=== PATIENT | female | born 1935 | race Caucasian/White ===

== ENCOUNTER 2017-11-05 11:17 | Outpatient (CLI) | payer MEDICARE, OTHER, SELFPAY | END 2017-11-05 15:51 | PROVIDERS: Family Provider Family Medicine; Visit Provider Internal Medicine Cardiovascular Disease | DX: Z79.01 Long term (current) use of anticoagulants (principal); I48.91 Unspecified atrial fibrillation; Z51.81 Encounter for therapeutic drug level monitoring | CPT/HCPCS: 85610; 99211; G0463 ==

== ENCOUNTER 2017-11-26 11:09 | Outpatient (CLI) | payer MEDICARE, OTHER, SELFPAY | END 2017-11-26 17:00 | disposition home or self-care (01) | LOC: ACC 11:12 | PROVIDERS: Physician Assistant; Family Provider Family Medicine; PCP Family Medicine; Visit Provider Internal Medicine Cardiovascular Disease | DX: Z79.01 Long term (current) use of anticoagulants (principal); I48.91 Unspecified atrial fibrillation; Z51.81 Encounter for therapeutic drug level monitoring | CPT/HCPCS: 85610; 99211; G0463 ==

== ENCOUNTER → 2017-12-17 11:49 | Outpatient (CLI) | payer MEDICARE, OTHER, SELFPAY ==
[2017-12-17 12:40] LABS: INR 1.52 (0.9-1.1); Prothrombin Time 16.5 seconds (9.4-11.8)
== END ==
PROVIDERS: Physician Assistant; Family Provider Family Medicine; PCP Family Medicine; Visit Provider Internal Medicine Cardiovascular Disease
DX: Z79.01 Long term (current) use of anticoagulants (principal); Z51.81 Encounter for therapeutic drug level monitoring; I48.0 Paroxysmal atrial fibrillation; I49.5 Sick sinus syndrome
CPT/HCPCS: 36415; 80162; 85610

== ENCOUNTER 2017-12-31 12:15 | Outpatient (CLI) | payer MEDICARE, OTHER, SELFPAY ==
[2017-12-31 14:58] LABS: PHA INR Fingerstick 2.3 (0.9-1.1)
== END 2017-12-31 15:25 | disposition home or self-care (01) ==
LOC: ACC 12:17
PROVIDERS: PCP Optometrist; Visit Provider Physician Assistant
DX: I48.91 Unspecified atrial fibrillation (principal)
CPT/HCPCS: 85610

== ENCOUNTER 2018-01-20 12:21 | Outpatient (CLI) | payer MEDICARE, OTHER, SELFPAY | END 2018-01-20 15:13 | disposition home or self-care (01) | LOC: ACC 12:22 | PROVIDERS: Family Provider Family Medicine; PCP Optometrist; Visit Provider Physician Assistant | DX: Z51.81 Encounter for therapeutic drug level monitoring (principal); I48.91 Unspecified atrial fibrillation; Z79.01 Long term (current) use of anticoagulants | CPT/HCPCS: 85610; 99211; G0463 ==

== ENCOUNTER → 2018-02-18 12:43 | Outpatient (CLI) | payer MEDICARE, OTHER, SELFPAY ==
[2018-02-18 15:42] LABS: PHA INR Fingerstick 1.8 (0.9-1.1)
== END | disposition home or self-care (01) ==
PROVIDERS: Family Provider Family Medicine; PCP Family Medicine; Visit Provider Physician Assistant
DX: Z79.01 Long term (current) use of anticoagulants (principal); Z51.81 Encounter for therapeutic drug level monitoring; I48.91 Unspecified atrial fibrillation
CPT/HCPCS: 85610; 99211; G0463

== ENCOUNTER 2018-03-19 12:51 | Outpatient (CLI) | payer MEDICARE, OTHER, SELFPAY ==
[2018-03-19 15:46] LABS: PHA INR Fingerstick 2.4 (0.9-1.1)
== END 2018-03-19 15:50 | disposition home or self-care (01) ==
LOC: ACC 12:52
PROVIDERS: Family Provider Family Medicine; PCP Family Medicine; Visit Provider Physician Assistant
DX: Z79.01 Long term (current) use of anticoagulants (principal); Z51.81 Encounter for therapeutic drug level monitoring; I48.91 Unspecified atrial fibrillation
CPT/HCPCS: 85610; 99211; G0463

== ENCOUNTER → 2018-04-30 11:35 | Outpatient (CLI) | payer MEDICARE, OTHER, SELFPAY ==
[2018-04-30 12:09] LABS: INR 1.73 (0.9-1.1); Prothrombin Time 17.5 seconds (9.4-11.8)
[2018-04-30 13:36] LABS: Digoxin 1.89 ng/mL (1.15-2.56)
== END ==
PROVIDERS: Internal Medicine Cardiovascular Disease; Visit Provider Physician Assistant
DX: Z79.01 Long term (current) use of anticoagulants (principal); Z51.81 Encounter for therapeutic drug level monitoring; I48.92 Unspecified atrial flutter
CPT/HCPCS: 36415; 80162; 85610

== ENCOUNTER 2018-05-19 12:32 | Outpatient (CLI) | payer MEDICARE, OTHER, SELFPAY ==
--- NOTE | 2018-05-19 12:38 | XR_ITS ---
XR ankle wt bearing RT min 3V HISTORY: ITS.REASON: pain ORDERING PHYSICIAN: FROYLAN Liu PATIENT AGE: 82 years Comparison: None FINDINGS: No fracture or dislocation. No lytic or blastic change. There is normal mineralization.. The joint spaces are well-preserved. No significant degenerative/arthritic changes. No erosive changes evident. Soft tissue swelling is present at the lateral aspect of the ankle joint. A small soft tissue calcification is present distal to the lateral malleolus possibly due to a phlebolith containing some lucency. IMPRESSION: Soft tissue swelling laterally otherwise negative
--- NOTE | 2018-05-19 12:38 | XR_ITS ---
XR ankle wt bearing LT min 3V HISTORY: ITS.REASON: pain ORDERING PHYSICIAN: FROYLAN Liu PATIENT AGE: 82 years Comparison: None FINDINGS: No fracture or dislocation. No lytic or blastic change. There is normal mineralization.. The joint spaces are well-preserved. No significant degenerative/arthritic changes. No erosive changes evident. IMPRESSION: Negative ankle, no acute finding
--- NOTE | 2018-05-19 12:38 | XR_ITS ---
XR foot wt bearing RT 3V HISTORY: ITS.REASON: pain ORDERING PHYSICIAN: FROYLAN Liu PATIENT AGE: 82 years COMPARISON: None FINDINGS: There is [id number] hallux valgus with first metatarsophalangeal angle of 39 degrees with mild osteoarthritis of the first MTP joint and mild hypertrophic change at the distal aspect of the first metatarsal. No fracture or dislocation evident. No lytic or blastic change. There is some deformity of the distal aspect of the first metatarsal. Has the patient had a prior osteotomy? Small area of soft tissue calcification present at the lateral aspect of the foot at the lateral to the calcaneal cuboid region IMPRESSION: Hallux valgus with bunion formation and osteoarthritis of the first MTP joint with suspected osteotomy of the distal aspect of the first metatarsal
--- NOTE | 2018-05-19 12:38 | XR_ITS ---
XR foot wt bearing LT 3V HISTORY: ITS.REASON: pain ORDERING PHYSICIAN: FROYLAN Liu PATIENT AGE: 82 years COMPARISON: None FINDINGS: There is mild hallux the first metatarsophalangeal angle of 33 degrees with mild hypertrophic changes of the distal aspect of the first metatarsal. No fracture or dislocation. No lytic or blastic change. Small calcaneal spur is present at 7 mm. IMPRESSION: Mild hallux valgus with bunion formation
[2018-05-19 14:46] LABS: PHA INR Fingerstick 2.2 (0.9-1.1)
== END 2018-05-19 14:47 | disposition home or self-care (01) ==
LOC: ACC 12:35
PROVIDERS: PCP Family Medicine; Visit Provider Physician Assistant
DX: Z79.01 Long term (current) use of anticoagulants (principal)
CPT/HCPCS: 73610; 73630; 85610; 99211; G0463

== ENCOUNTER → 2018-05-19 16:15 | Outpatient (REF) | payer MEDICARE, OTHER, SELFPAY | LOC: LAB 16:15 | PROVIDERS: Visit Provider Urology | DX: I48.91 Unspecified atrial fibrillation; N39.0 Urinary tract infection, site not specified | CPT/HCPCS: 73610; 73630; 85610; 87086; 99211; G0463 ==

== ENCOUNTER 2018-05-25 13:13 | Outpatient (RCR) | payer MEDICARE, OTHER, SELFPAY ==
--- NOTE | 2018-05-25 14:28 | HMH.PTOPWND ---
Rehab Outpt Wound Evaluation Rehab OP Wound Evaluation Start: 05/25/18 13:14 Freq: Status: Active Protocol: Document 05/25/18 14:17 PHOFAWN (Rec: 05/25/18 14:27 PHORNE [id number]) Electronically Signed By Jr Canchola, PT 05/25/18 14:17 Subjective/History History History Pt is 82 yo white female who presents with c/o pain in verenice feet and ankles with associated edmea and insidious onset of symptoms. She reports no known injuries and had X-rays performed which were negative for any acute injury.SHe has hx of OA, DDD, Fibromyalgia, CVI, COPD, Pacemaker x 2, and right bunionectomy. Subjective Subjective Pt c/o pain in verenice feet, burning, and it gets worse through the day when I'm up. *moderate verenice gastroc tightness noted. 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 Stemmer's sign Stemmer's Sign no Stage of Lymphedema Lymphedema stages Stage I (Pitting edema, reduces w/ elevation, no fibrosis) Skin Changes Dry Skin Yes Redness Yes Pain Scale Pain Scale (0-10) 8 Affected Extremities Areas Affected by Lymphedema/Edema Right Lower Extremity Left Lower Extremity Manual Lymphatic Drainage Treatment Area MLD Treatment Area Right Lower Extremity Left Lower Extremity Wound Problems/Impairments Impairments Problems/Impairmments Palpation Tenderness Impaired Range of Motion Impaired Walking Increased Edema Lymphedema Present Subjective C/O Pain Impaired Self Care/Self Management Prognosis Rehab Potential Fair Clinical Impression Consistent with Diagnosis Yes Short Term Goals Number of Weeks 4 Decreased Palpation Tenderness Yes: to min Increase Ability to Walk Yes: 5 min Decrease Subjective C/O Pain Yes: 6/10 Patient to Understand Lymphedema Yes Treatment and Exercises Decrease Girth Measurments by (cm) Yes: by 5 cm 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
== END 2018-05-25 13:14 | disposition home or self-care (01) ==
LOC: PT 13:13
PROVIDERS: Family Provider Family Medicine; PCP Family Medicine; Visit Provider Podiatrist
DX: I89.0 Lymphedema, not elsewhere classified (principal)
CPT/HCPCS: 97140; 97163

== ENCOUNTER → 2018-06-15 08:53 | Outpatient (CLI) | payer MEDICARE, OTHER, SELFPAY ==
--- NOTE | 2018-06-15 08:57 | US_ITS ---
US abdomen limited History:Right upper quadrant pain, abnormal CT scan Ordering Physician:Niranjan Chavira MD Patient Age: 82 years Comparison:06/05/2018 Findings:Patient has had a prior cholecystectomy. There is a cystic region in the gallbladder fossa with an underlying stone Pancreas:Unremarkable. No obvious mass or abnormal fluid collection. No ductal dilatation Liver:No focal liver lesions demonstrated. Homogeneous echogenicity. No intrahepatic biliary ductal dilatation evident. The common bile duct is normal at 3 mm. Right Kidney:Unremarkable. Normal size and echogenicity. No hydronephrosis Gallbladder:History is given of cholecystectomy. There is a cystic rounded area in the gallbladder fossa corresponding to the CT abnormality which measures nearly 3 cm. Within this there is a shadowing stone which measures 1.8 cm. Impression: Prior cholecystectomy with cystic area in the gallbladder fossa containing a stone. This may be related to a dilated cystic duct remnant with a stone versus a choledochocele with a stone. Unfortunately, the patient has an RV pacemaker and would not be candidate for MRCP. ERCP therefore be the next step for further evaluation with attempt to reflux contrast into this cystic structure and confirm its origin
== END ==
PROVIDERS: Family Provider Family Medicine; PCP Family Medicine; Visit Provider Family Medicine
DX: R10.11 Right upper quadrant pain (principal)
CPT/HCPCS: 76705

== ENCOUNTER → 2018-06-22 09:16 | Outpatient (CLI) | payer MEDICARE, OTHER, SELFPAY ==
--- NOTE | 2018-06-22 09:31 | US_ITS ---
US extremity RT limited CLINICAL INDICATION: ITS.REASON: BACK RT SIDED MASS ORDERING PHYSICIAN: Niranjan Chavira MD PATIENT AGE: 82 years Comparison: 06/13/2019 FINDINGS: Ultrasound performed of the right lateral chest wall demonstrating a 2 x 1.4 x 1.6 cm hypoechoic lesion in the right 10th interspace posterior laterally corresponding to the CT abnormality. This has enhanced through transmission of sound may represent a cyst or a neuroma. IMPRESSION: 2 cm hypoechoic lesion corresponding to the CT abnormality in the right 10th interspace which may present a cyst or neuroma
--- NOTE | 2018-06-22 09:31 | US_ITS ---
FNA w guidance HISTORY: Right-sided intercostal mass as seen on recent CT scan with pain ITS.REASON: RT SIDED BACK MASS' ORDERING PHYSICIAN: Niranjan Chavira MD PATIENT AGE: 82 years COMPARISON: 06/22/2018, 06/13/2019 TECHNIQUE: Following obtaining informed consent, using aseptic technique and local anesthesia with buffered lidocaine, fine-needle aspiration was performed of the nodule of interest using sonographic guidance. One pass were made into the nodule with a 25-gauge needle. A small amount of serous fluid was aspirated and the nodule disappeared. Specimen was given to cytology. The patient tolerated the procedure well without evidence of immediate complications and left the ultrasound suite in stable condition. CYTOLOGY:Negative for malignancy, granular an amorphous debris compatible with cyst contents. Negative for epithelial and inflammatory cells IMPRESSION: Successful sonographic guided aspiration of intercostal lesion on the right at the 10th interspace in the right flank showing benign findings. This completely aspirated consistent with a cyst. No immediate complications
== END ==
PROVIDERS: Family Provider Family Medicine; PCP Family Medicine; Visit Provider Family Medicine
DX: R22.2 Localized swelling, mass and lump, trunk (principal)
CPT/HCPCS: 10022; 76882; 88173

== ENCOUNTER 2018-07-07 13:55 | Outpatient (CLI) | payer MEDICARE, OTHER, SELFPAY ==
[2018-07-07 14:41] LABS: PHA INR Fingerstick 2.2 (0.9-1.1)
== END 2018-07-07 14:44 | disposition home or self-care (01) ==
LOC: ACC 13:57
PROVIDERS: Family Provider Family Medicine; PCP Family Medicine; Visit Provider Physician Assistant
DX: Z79.01 Long term (current) use of anticoagulants (principal); Z51.81 Encounter for therapeutic drug level monitoring; I48.91 Unspecified atrial fibrillation
CPT/HCPCS: 85610; 99211; G0463

== ENCOUNTER 2018-09-01 10:56 | Outpatient (CLI) | payer MEDICARE, OTHER, SELFPAY ==
[2018-09-01 14:05] LABS: PHA INR Fingerstick 2.8 (0.9-1.1)
== END 2018-09-01 14:24 | disposition home or self-care (01) ==
LOC: ACC 10:58
PROVIDERS: PCP Family Medicine; Visit Provider Physician Assistant
DX: Z51.81 Encounter for therapeutic drug level monitoring (principal); Z79.01 Long term (current) use of anticoagulants; I48.91 Unspecified atrial fibrillation
CPT/HCPCS: 85610; 99211; G0463

== ENCOUNTER 2018-09-22 12:31 | Outpatient (CLI) | payer MEDICARE, OTHER, SELFPAY ==
[2018-09-22 15:31] LABS: PHA INR Fingerstick 2.9 (0.9-1.1)
== END 2018-09-22 15:36 | disposition home or self-care (01) ==
LOC: ACC 12:33
PROVIDERS: PCP Family Medicine; Visit Provider Physician Assistant
DX: Z51.81 Encounter for therapeutic drug level monitoring (principal); Z79.01 Long term (current) use of anticoagulants; I48.91 Unspecified atrial fibrillation
CPT/HCPCS: 85610; 99211; G0463

== ENCOUNTER 2018-10-28 12:49 | Outpatient (CLI) | payer MEDICARE, OTHER, SELFPAY ==
[2018-10-28 14:40] LABS: PHA INR Fingerstick 1.8 (0.9-1.1)
== END 2018-10-28 14:48 | disposition home or self-care (01) ==
PROVIDERS: Visit Provider Physician Assistant
DX: I48.91 Unspecified atrial fibrillation (principal); Z79.01 Long term (current) use of anticoagulants
CPT/HCPCS: 85610; 99211; G0463

== ENCOUNTER → 2018-11-12 11:45 | Outpatient (CLI) | payer MEDICARE, OTHER, SELFPAY ==
[2018-11-12 12:49] LABS: Digoxin 2.07 ng/mL (1.15-2.56)
== END ==
PROVIDERS: Visit Provider Physician Assistant
DX: Z79.899 Other long term (current) drug therapy (principal)
CPT/HCPCS: 36415; 80162

== ENCOUNTER 2018-11-30 12:50 | Outpatient (CLI) | payer MEDICARE, OTHER, SELFPAY ==
[2018-11-30 13:55] LABS: PHA INR Fingerstick 3.1 (0.9-1.1)
== END 2018-11-30 13:59 | disposition home or self-care (01) ==
LOC: ACC 12:50
PROVIDERS: PCP Family Medicine; Visit Provider Physician Assistant
DX: Z51.81 Encounter for therapeutic drug level monitoring (principal); Z79.01 Long term (current) use of anticoagulants; I48.91 Unspecified atrial fibrillation
CPT/HCPCS: 85610; 99211; G0463

== ENCOUNTER 2019-01-04 12:14 | Outpatient (CLI) | payer MEDICARE, OTHER, SELFPAY ==
[2019-01-04 15:02] LABS: PHA INR Fingerstick 2.6 (0.9-1.1)
== END 2019-01-04 15:05 | disposition home or self-care (01) ==
LOC: ACC 12:16
PROVIDERS: PCP Family Medicine; Visit Provider Physician Assistant
DX: Z51.81 Encounter for therapeutic drug level monitoring (principal); Z79.01 Long term (current) use of anticoagulants; I48.91 Unspecified atrial fibrillation
CPT/HCPCS: 85610; 99211; G0463

== ENCOUNTER 2019-02-15 13:01 | Outpatient (CLI) | payer MEDICARE, OTHER, SELFPAY | END 2019-02-15 15:06 | disposition home or self-care (01) | LOC: ACC 13:03 | PROVIDERS: PCP Family Medicine; Visit Provider Physician Assistant | DX: Z51.81 Encounter for therapeutic drug level monitoring (principal); Z79.01 Long term (current) use of anticoagulants; I48.91 Unspecified atrial fibrillation | CPT/HCPCS: 85610; 99211; G0463 ==

== ENCOUNTER → 2019-02-23 14:27 | Outpatient (CLI) | payer MEDICARE, OTHER, SELFPAY ==
--- NOTE | 2019-02-23 14:31 | XR_ITS ---
XR foot wt bearing RT 3V HISTORY: ITS.REASON: pain ORDERING PHYSICIAN: Yesenia Suazo DPM PATIENT AGE: 83 years COMPARISON: None FINDINGS: [id number] hallux valgus is present with mild osteoarthritic change of the first metatarsophalangeal joint. No fracture or dislocation. No lytic or blastic change. Artifact is present from a wrap around the foot. IMPRESSION: Hallux valgus otherwise negative
--- NOTE | 2019-02-23 14:31 | XR_ITS ---
XR ankle wt bearing LT min 3V HISTORY: ITS.REASON: pain ORDERING PHYSICIAN: Yesenia Suazo DPM PATIENT AGE: 83 years Comparison: None FINDINGS: No fracture or dislocation. No lytic or blastic change. There is normal mineralization.. The joint spaces are well-preserved. No significant degenerative/arthritic changes. No erosive changes evident. IMPRESSION: Negative ankle, no acute finding
--- NOTE | 2019-02-23 14:31 | XR_ITS ---
XR ankle wt bearing RT min 3V HISTORY: ITS.REASON: pain ORDERING PHYSICIAN: Yesenia Suazo DPM PATIENT AGE: 83 years Comparison: None FINDINGS: No fracture or dislocation. No lytic or blastic change. There is normal mineralization.. The joint spaces are well-preserved. No significant degenerative/arthritic changes. No erosive changes evident. IMPRESSION: Negative ankle, no acute finding
--- NOTE | 2019-02-23 14:31 | XR_ITS ---
XR foot wt bearing LT 3V HISTORY: ITS.REASON: pain ORDERING PHYSICIAN: Yesenia Suazo DPM PATIENT AGE: 83 years COMPARISON: None FINDINGS: There is mild hallux valgus. No fracture or dislocation. No lytic or blastic change. No bony erosive process. Artifact is present from a compartment/wrap around the foot. IMPRESSION: Hallux valgus otherwise negative
== END ==
PROVIDERS: PCP Family Medicine; Visit Provider Podiatrist
DX: R52 Pain, unspecified (principal)
CPT/HCPCS: 73610; 73630

== ENCOUNTER 2019-03-15 13:02 | Outpatient (CLI) | payer MEDICARE, OTHER, SELFPAY ==
[2019-03-15 13:45] LABS: PHA INR Fingerstick 2.9 (0.9-1.1)
== END 2019-03-15 13:51 | disposition home or self-care (01) ==
LOC: ACC 13:03
PROVIDERS: PCP Family Medicine; Visit Provider Physician Assistant
DX: Z51.81 Encounter for therapeutic drug level monitoring (principal); Z79.01 Long term (current) use of anticoagulants; I48.91 Unspecified atrial fibrillation
CPT/HCPCS: 85610; 99211; G0463

== ENCOUNTER → 2019-04-06 13:08 | Outpatient (POV) | payer MEDICARE, OTHER, SELFPAY | PROVIDERS: Visit Provider Dermatology | DX: Z00.00 Encounter for general adult medical examination without abnormal findings (principal) ==

== ENCOUNTER 2019-04-26 12:41 | Outpatient (CLI) | payer MEDICARE, OTHER, SELFPAY ==
[2019-04-26 15:48] LABS: PHA INR Fingerstick 2.3 (0.9-1.1)
== END 2019-04-26 15:52 | disposition home or self-care (01) ==
LOC: ACC 12:42
PROVIDERS: PCP Family Medicine; Visit Provider Physician Assistant
DX: Z51.81 Encounter for therapeutic drug level monitoring (principal); Z79.01 Long term (current) use of anticoagulants; I48.91 Unspecified atrial fibrillation
CPT/HCPCS: 85610; 99211; G0463

== ENCOUNTER → 2019-05-27 12:09 | Outpatient (CLI) | payer MEDICARE, OTHER, SELFPAY ==
[2019-05-27 12:42] LABS: INR 2.18 (0.9-1.1); Prothrombin Time 21.9 seconds (9.4-11.8)
== END ==
PROVIDERS: Visit Provider Family Medicine
DX: Z51.81 Encounter for therapeutic drug level monitoring (principal); Z79.01 Long term (current) use of anticoagulants; I48.91 Unspecified atrial fibrillation
CPT/HCPCS: 36415; 85610

== ENCOUNTER 2019-07-08 11:49 | Outpatient (CLI) | payer MEDICARE, OTHER, SELFPAY ==
[2019-07-08 14:12] LABS: PHA INR Fingerstick 1.9 (0.9-1.1)
== END 2019-07-08 14:17 | disposition home or self-care (01) ==
LOC: ACC 11:52
PROVIDERS: PCP Family Medicine; Visit Provider Family Medicine
DX: Z51.81 Encounter for therapeutic drug level monitoring (principal); Z79.01 Long term (current) use of anticoagulants; I48.91 Unspecified atrial fibrillation
CPT/HCPCS: 85610; 99211; G0463

== ENCOUNTER 2019-07-28 11:53 | Outpatient (CLI) | payer MEDICARE, OTHER, SELFPAY ==
[2019-07-28 14:11] LABS: PHA INR Fingerstick 2.4 (0.9-1.1)
== END 2019-07-28 14:13 | disposition home or self-care (01) ==
LOC: ACC 11:54
PROVIDERS: PCP Family Medicine; Visit Provider Family Medicine
DX: Z51.81 Encounter for therapeutic drug level monitoring (principal); Z79.01 Long term (current) use of anticoagulants; I48.91 Unspecified atrial fibrillation
CPT/HCPCS: 85610; 99211; G0463

== ENCOUNTER 2019-09-15 11:02 | Outpatient (CLI) | payer MEDICARE, OTHER, SELFPAY ==
[2019-09-15 13:26] LABS: PHA INR Fingerstick 2.5 (0.9-1.1)
== END 2019-09-15 13:35 | disposition home or self-care (01) ==
LOC: ACC 11:04
PROVIDERS: PCP Family Medicine; Visit Provider Family Medicine
DX: Z51.81 Encounter for therapeutic drug level monitoring (principal); Z79.01 Long term (current) use of anticoagulants; I48.91 Unspecified atrial fibrillation
CPT/HCPCS: 85610; 99211; G0463

== ENCOUNTER 2019-11-15 13:05 | Outpatient (CLI) | payer MEDICARE, OTHER, SELFPAY ==
[2019-11-15 14:43] LABS: PHA INR Fingerstick 2.1 (0.9-1.1)
== END 2019-11-15 15:34 | disposition home or self-care (01) ==
LOC: ACC 13:05
PROVIDERS: PCP Family Medicine; Visit Provider Family Medicine
DX: Z51.81 Encounter for therapeutic drug level monitoring (principal); Z79.01 Long term (current) use of anticoagulants; I48.91 Unspecified atrial fibrillation
CPT/HCPCS: 85610; 99211; G0463

== ENCOUNTER 2019-12-29 13:09 | Outpatient (CLI) | payer MEDICARE, OTHER, SELFPAY ==
[2019-12-29 15:11] LABS: PHA INR Fingerstick 2.9 (0.9-1.1)
== END 2019-12-29 15:17 | disposition home or self-care (01) ==
LOC: ACC 13:12
PROVIDERS: PCP Family Medicine; Visit Provider Family Medicine
DX: Z51.81 Encounter for therapeutic drug level monitoring (principal); Z79.01 Long term (current) use of anticoagulants; I48.91 Unspecified atrial fibrillation
CPT/HCPCS: 85610; 99211; G0463

== ENCOUNTER 2020-02-08 10:47 | Outpatient (CLI) | payer MEDICARE, OTHER, SELFPAY ==
[2020-02-08 15:35] LABS: PHA INR Fingerstick 2.3 (0.9-1.1)
== END 2020-02-08 15:43 | disposition home or self-care (01) ==
LOC: ACC 10:48
PROVIDERS: PCP Family Medicine; Visit Provider Family Medicine
DX: Z51.81 Encounter for therapeutic drug level monitoring (principal); Z79.01 Long term (current) use of anticoagulants; I48.91 Unspecified atrial fibrillation
CPT/HCPCS: 85610; 99211; G0463

== ENCOUNTER 2020-03-10 01:42 | Emergency (ER) | payer MEDICARE, OTHER, SELFPAY ==
[2020-03-10] VITALS (8 sets, daily range): BP systolic 118–148; BP diastolic 69–85; PULSE 68–87; RESP 16–22; TEMP 36.6–36.7; O2SAT 96–99; BMI 26.7
--- NOTE | 2020-03-10 01:24 | ECG_ITS ---
APPROVED REPORT Exam: Resting ECG HR:64 bpm ECG Measurements Heart Rate 64 AXES RI 256 P -29 QRSd 158 QRS -69 QT 426 T 102 QTc 439 <Conclusion> AV sequential or dual chamber electronic pacemaker Electronically signed by : Niranjan Mccarty, 03/12/2020 13:14:33
--- NOTE | 2020-03-10 01:34 | XR_ITS ---
PROCEDURE: XR CHEST PORTABLE CLINICAL HISTORY: soa shortness of air COMPARISON: CXR1VP XR chest portable from 07/11/2018 CXR2V XR chest 2V from 12/21/2018 XR CHEST PORTABLE from 10/09/2019 FINDINGS: Borderline cardiomegaly without failure with bipolar pacemaker present from left subclavian approach. Patchy infiltrate is present in the right upper lobe laterally. There is also increased density in both lung bases left more so than right. No obvious effusion. The density in the left lung base has a somewhat nodular contour. Cannot exclude pulmonary nodule at this area. Chest CT may provide further evaluation. No acute bony abnormalities. IMPRESSION: Bilateral pneumonia located in the right upper lobe, right lung base, and left lung base with possible nodule in the left lower lobe.. Dictated by: Ramírez Lee MD 03/10/2020 06:17 Electronically signed by Ramírez Lee MD in [place] 03/10/2020 06:17
--- NOTE | 2020-03-10 01:34 | CT_ITS ---
PROCEDURE: CT HEAD/BRAIN WO CON CLINICAL INDICATION: dizziness COMPARISON: No exams were available for comparison TECHNIQUE: Axial images obtained. All CT scans at the facility use one or more dose reduction, viz: automated exposure control, ma/kV adjustment per patient size (including targeted exams where dose is matched to indication, i.e. head), or iterative reconstruction technique. FINDINGS: No midline shift, mass effect, intracranial hemorrhage, hydrocephalus, or extra-axial fluid collection is evident. There is generalized atrophy with hypoattenuation of the periventricular white matter consistent with microangiopathic changes. The calvarium has an unremarkable appearance. No mastoid effusion. No sinus air-fluid level. IMPRESSION: No acute intracranial finding Dictated by: Ramírez Lee MD 03/10/2020 06:29 Electronically signed by Ramírez Lee MD in [facility] 03/10/2020 06:29
[2020-03-10 01:52] LABS: Basophils # 0.1 K/mm3 (0-0.2); Basophils % 0.9 % (0.1-2.0); Eosinophils # 0.2 K/mm3 (0.0-0.4); Eosinophils % 2.4 % (0.1-12.0); Hematocrit 38.3 % (37.0-47.0); Hemoglobin 12.4 g/dL (12.2-16.2); Lymphocytes # 1.6 K/mm3 (0.7-4.5); Lymphocytes % 18.9 % (10-50); Mean Corpuscular HGB Conc 32.4 g/dL (31.8-35.4); Mean Corpuscular Hemoglobin 30.1 pg (27.0-31.2); Mean Corpuscular Volume 92.9 fl (81-99); Mean Platelet Volume 7.4 fl (7.4-10.4); Monocytes # 0.5 K/mm3 (0.1-1.0); Monocytes % 6.3 % (1.7-9.3); Neutrophils # 6.2 K/mm3 (1.8-7.8); Neutrophils % 71.6 % (37.0-80.0); Platelet Count 287 K/mm3 (142-424); Red Blood Count 4.12 M/mm3 (4.20-5.40); White Blood Count 8.7 K/mm3 (4.8-10.8)
[2020-03-10 01:58] LABS: Alanine Aminotransferase 15 U/L (12-78); Albumin Level 4.7 g/dl (3.5-5.0); Albumin/Globulin Ratio 1.3 (1.1-1.8); Alkaline Phosphatase 99 U/L (38-126); Anion Gap 9.9 mEq/L (5-15); Aspartate Amino Transferase 29 U/L (14-36); Bilirubin,Total 0.3 mg/dl (0.2-1.3); Blood Urea Nitrogen 12 mg/dl (7-17); Calcium 10.1 mg/dl (8.4-10.2); Carbon Dioxide 33 mmol/L (22.0-30.0); Chloride 96 mmol/L (98-107); Creatinine Clearance Estimated 47 mL/min (50-200); Estimated Glomerular Filt Rate 80 ml/min (>60); GFR (African American) 96 ML/MIN (>60); Globulin 3.6 g/dL (1.3-3.2); Glucose 105 mg/dl (74-100); INR 2.04 (0.9-1.1); Potassium 3.9 mmoL/L (3.5-5.1); Prothrombin Time 20.5 seconds (9.4-11.8); Sodium 135 mmol/L (136-145); Total Protein,Serum 8.3 g/dl (6.3-8.2)
--- NOTE | 2020-03-10 02:00 | PC.NURSE ---
difficulties with printer prevents name id from being palced on patient. registration notified we needed a bracelet. waiting on printout.
--- NOTE | 2020-03-10 02:43 | PC.NURSE ---
name bracelet placed on patient after confirmation.
--- NOTE | 2020-03-10 02:54 | PC.NURSE ---
pt ambulated >30 feet to bathroom using walker and standby assist. voided. specimen sent to lab.
[2020-03-10 02:55] LABS: Troponin I < 0.01 ng/ml (0.00-0.034)
[2020-03-10 03:06] LABS: Microscopic, Urine URINE MICROSCOPIC (MICROSCOPIC)
[2020-03-10 03:07] LABS: Appearance,Urine CLEAR (Clear); Bilirubin,Urine Negative (Negative); Blood, Urine 2+ (Negative); Color,Urine YELLOW (Yellow); Glucose,Urine (UA) Negative (Negative); Ketones,Urine Negative (Negative); Leukocyte Esterase,Urine Negative (Negative); Nitrate,Urine Negative (Negative); Protein,Urine Negative (Negative); Specific Gravity, Urine 1.015 (1.005-1.030); Urobilinogen,Urine 0.2 EU/dl (0.2)
[2020-03-10 03:31] LABS: Bacteria,Urine 1+ /lpf
[2020-03-10 03:46] LABS: Carbamazepine (Tegretol) 4.8 ug/ml (4.0-12.0)
--- NOTE | 2020-03-10 03:51 | HMH.EDDIZZ ---
ED Disposition Clinical Impression: Pacemaker CAP (community acquired pneumonia) Qualifiers: Laterality: unspecified laterality Qualified Code(s): J18.9 - Pneumonia, unspecified organism Disposition: Home, Self-Care Condition on Discharge: Good Instructions: Dizziness, Nonvertigo Additional Instructions: fluids and use meds and see dr elizalde Prescriptions: Minocycline HCl [Minocycline HCl 100mg Tab*] 100 mg PO BID #20 tab Transmission Status: Pending to [facility] Referrals: Niranjan Elizalde MD [Primary Care Provider] - - Critical Care Critical Care Time: No Attestation: On 03/10/20, the high probability of a clinically significant, sudden or life threatening deterioration of the following system(s) required my full and direct attention, intervention and personal management. The time I documented below is in addition to time spent performing reported procedures but includes the following listed in this critical care notation. Medical Decision Making - Medical Records Medical records reviewed: Yes: I reviewed the patient's medical records. - Rashel Inquiry Pt receiving controlled substance: No Vital Signs: 03/10/20 01:28 03/10/20 02:10 03/10/20 02:53 Temperature 98.1 F 98.0 F Temperature Source Oral Oral Pulse Rate [Right Brachial] 82 70 72 Respiratory Rate 19 20 16 Blood Pressure [Right Arm] 148/69 H 144/76 H 131/72 Blood Pressure Mean [Right Arm] 95 98 91 Blood Pressure Source [Right Arm] Automatic Cuff Automatic Cuff Automatic Cuff Blood Pressure Position [Right Arm] Sitting Sitting Sitting 02 Sat by Pulse Oximetry 99 98 96 Oxygen Delivery Method Room Air Room Air Room Air 03/10/20 03:20 03/10/20 04:12 03/10/20 04:26 Temperature 98.1 F Temperature Source Oral Pulse Rate [Right Brachial] 75 68 85 Respiratory Rate 19 19 22 Blood Pressure [Right Arm] 142/71 H 137/75 118/83 Blood Pressure Mean [Right Arm] 94 95 94 Blood Pressure Source [Right Arm] Automatic Cuff Automatic Cuff Automatic Cuff Blood Pressure Position [Right Arm] Sitting Sitting Sitting 02 Sat by Pulse Oximetry 98 97 98 Oxygen Delivery Method Room Air Room Air Room Air 03/10/20 05:30 Temperature Temperature Source Pulse Rate [Right Brachial] 69 Respiratory Rate 16 Blood Pressure [Right Arm] 148/76 H Blood Pressure Mean [Right Arm] 100 Blood Pressure Source [Right Arm] Automatic Cuff Blood Pressure Position [Right Arm] Sitting 02 Sat by Pulse Oximetry 97 Oxygen Delivery Method Room Air - Lab Data Lab results reviewed: Yes: I reviewed the patient's lab results. Lab Results 03/10/20 01:40: WBC 8.7, RBC 4.12 L, Hgb 12.4, Hct 38.3, MCV 92.9, MCH 30.1, MCHC 32.4, RDW 12.0, Plt Count 287, MPV 7.4, Neut % (Auto) 71.6, Lymph % (Auto) 18.9, [place] % (Auto) 6.3, Eos % (Auto) 2.4, Baso % (Auto) 0.9, Neut # (Auto) 6.2, Lymph # (Auto) 1.6, [place] # (Auto) 0.5, Eos # (Auto) 0.2, Baso # (Auto) 0.1 03/10/20 01:40: PT 20.5 H, INR 2.04 H 03/10/20 01:40: Sodium 135 L, Potassium 3.9, Chloride 96 L, Carbon Dioxide 33 H, Anion Gap 9.9, BUN 12, Creatinine 0.70, Estimated Creat Clear 47, Estimated GFR 80, Est GFR ( Amer) 96, Glucose 105 H, Calcium 10.1, Total Bilirubin 0.3, AST 29, ALT 15, Alkaline Phosphatase 99, Troponin I < 0.01, Total Protein 8.3 H, Albumin 4.7, Globulin 3.6 H, Albumin/Globulin Ratio 1.3 03/10/20 01:40: Digoxin 0.50 03/10/20 01:40: Carbamazepine 4.8 03/10/20 01:40: TSH 3.59, Free T4 Index 3.0 L, Thyroxine (T4) 8.5, T3 Uptake 35 03/10/20 02:45: Urine Color Yellow, Urine Appearance Clear, Urine pH 8.0, Ur Specific [place] 1.015, Urine Protein Negative, Urine Glucose (UA) Negative, Urine Ketones Negative, Urine Blood 2+, Urine Nitrate Negative, Urine Bilirubin Negative, Urine Urobilinogen 0.2, Ur Leukocyte Esterase Negative, Urine RBC 3-5, Urine WBC 3-5, Urine Bacteria 1+ 03/10/20 04:55: Troponin I < 0.01 Result diagrams: 03/10/20 01:40 03/10/20 01:40 Orders (Tests/Meds): ED MEDICATIONS Discontinued Med
--- NOTE | 2020-03-10 04:04 | PC.NURSE ---
md at bedside, advises want to obtain second troponin and gofrom there on disposition status. pt aware.
[2020-03-10 04:32] LABS: Triiodothryronine (T3) Uptake 35 % (23.5-40.5)
[2020-03-10 04:33] LABS: T4 (Thyroxine) 8.5 ug/dl (5.53-11.0)
[2020-03-10 04:47] LABS: Thyroid Stimulating Hormone 3.59 uIU/mL (0.465-4.68)
[2020-03-10 05:34] LABS: Troponin I < 0.01 ng/ml (0.00-0.034)
--- NOTE | 2020-03-10 07:02 | CT_ITS ---
PROCEDURE: CT CHEST WO [facility] let me I [place] pneumonia right well she definitely has and there is fairly dense consolidation peripherally in the right upper lobe right lower lobe and in me your corresponds to the chest x-ray CLINICAL INDICATION: abn cxr Shortness of air, abnormal chest x-ray COMPARISON: CT ABDOMEN PELVIS WO CON from 11/29/2019 XR CHEST PORTABLE from 03/10/2020 TECHNIQUE: Axial images obtained with sagittal and coronal reformats. All CT scans at the facility use one or more dose reduction, viz: automated exposure control, ma/kV adjustment per patient size (including targeted exams where dose is matched to indication, i.e. head), or iterative reconstruction technique. FINDINGS: HEART AND MEDIASTINAL STRUCTURES: Cardiac pacemaker device is present. There is severe coronary artery calcification. No mediastinal or hilar mass. Minimal pericardial thickening anteriorly LUNGS AND PLEURAL SPACES: . there are scattered peripheral areas of consolidation including a wedge-shaped area of dense consolidation in the right upper lobe laterally at 2 cm. There is a more diffuse area of consolidation just inferior and posterior to this region. Dense nodular like consolidation in the right lung base medially at 3.7 cm. This area is without air bronchograms. There is a somewhat more diffuse area of consolidation in the superior segment of the right lower lobe. There is also dense consolidation in the lingula. These areas correspond to the radiographic abnormalities. In addition, there is a noncalcified 4 mm nodule in the left upper lobe posteriorly and several noncalcified nodular opacities in the right lower lobe. Calcified granuloma is present in the right upper lobe. No effusions are evident. BONY STRUCTURES: No acute bony abnormalities apparent. UPPER ABDOMEN: Unremarkable. ADDITIONAL FINDINGS: No other significant abnormalities. IMPRESSION: 1. Bilateral peripheral areas of dense consolidation. There also scattered faint nodular opacities and more diffuse ground-glass density noted in the right upper lobe posteriorly. These findings are concerning for multifocal pneumonia which could be bacterial or viral. Infarcts from pulmonary emboli could cause this appearance as well. Metastatic disease is also not excluded but felt to be but less likely based on the CT characteristics. 2. Severe coronary artery calcification for Dictated by: Ramírez Lee MD 03/10/2020 08:37 Electronically signed by Ramírez Lee MD in [place] 03/10/2020 08:37
--- NOTE | 2020-03-10 08:37 | PC.NURSE ---
Dr Golden speaking with Dr Chavira
--- NOTE | 2020-03-10 08:49 | PC.NURSE ---
pt family member called for transport
== END 2020-03-10 09:34 | disposition home or self-care (01) ==
PROVIDERS: Emergency Provider Emergency Medicine; PCP Family Medicine
DX: J18.9 Pneumonia, unspecified organism (principal); Z95.0 Presence of cardiac pacemaker; I48.20 Chronic atrial fibrillation, unspecified; K21.9 Gastro-esophageal reflux disease without esophagitis; E78.5 Hyperlipidemia, unspecified; I10 Essential (primary) hypertension; F41.9 Anxiety disorder, unspecified; Z79.899 Other long term (current) drug therapy; Z88.0 Allergy status to penicillin; Z88.2 Allergy status to sulfonamides; Z88.5 Allergy status to narcotic agent; Z88.8 Allergy status to other drugs, medicaments and biological substances
CPT/HCPCS: 70450; 71045; 71250; 80053; 80156; 80162; 81001; 84436; 84443; 84479; 84484; 85025; 85610; 87086; 93005; 96365; 96366; 99284

== ENCOUNTER 2020-04-05 12:47 | Outpatient (CLI) | payer MEDICARE, OTHER, SELFPAY ==
[2020-04-05 13:58] LABS: PHA INR Fingerstick 3.3 (0.9-1.1)
== END 2020-04-05 14:00 | disposition home or self-care (01) ==
LOC: ACC 12:50
PROVIDERS: PCP Family Medicine; Visit Provider Family Medicine
DX: Z51.81 Encounter for therapeutic drug level monitoring (principal); Z79.01 Long term (current) use of anticoagulants; I48.91 Unspecified atrial fibrillation
CPT/HCPCS: 85610; 99211; G0463

== ENCOUNTER 2020-04-26 12:51 | Outpatient (CLI) | payer MEDICARE, OTHER, SELFPAY ==
[2020-04-26 14:48] LABS: PHA INR Fingerstick 2.7 (0.9-1.1)
== END 2020-04-26 15:01 | disposition home or self-care (01) ==
PROVIDERS: PCP Family Medicine; Visit Provider Family Medicine
DX: Z51.81 Encounter for therapeutic drug level monitoring (principal); Z79.01 Long term (current) use of anticoagulants; I48.91 Unspecified atrial fibrillation
CPT/HCPCS: 85610; 99211; G0463

== ENCOUNTER 2020-06-07 10:54 | Outpatient (CLI) | payer MEDICARE, OTHER, SELFPAY ==
[2020-06-07 15:12] LABS: PHA INR Fingerstick 2.8 (0.9-1.1)
== END 2020-06-07 15:42 | disposition home or self-care (01) ==
LOC: ACC 10:56
PROVIDERS: PCP Family Medicine; Visit Provider Family Medicine
DX: Z51.81 Encounter for therapeutic drug level monitoring (principal); Z79.01 Long term (current) use of anticoagulants; I48.91 Unspecified atrial fibrillation
CPT/HCPCS: 85610; 99211; G0463

== ENCOUNTER 2020-07-19 14:42 | Observation (INO) | payer MEDICARE, OTHER, SELFPAY ==
[2020-07-19 14:42] VITALS: BP 166/88; PULSE 74; RESP 19; TEMP 36.7; O2SAT 100; BMI 22.8
--- NOTE | 2020-07-19 14:53 | CT_ITS ---
PROCEDURE: CT ABDOMEN PELVIS WO CON CLINICAL INDICATION: pain Right lower quadrant pain, right flank pain COMPARISON: CT ABDPELWO CT abdomen pelvis wo con from 06/05/[address] ABDOMEN PELVIS WO CON from 11/29/2019 TECHNIQUE: Axial images obtained with sagittal and coronal reformats. All CT scans at the facility use one or more dose reduction, viz: automated exposure control, ma/kV adjustment per patient size (including targeted exams where dose is matched to indication, i.e. head), or iterative reconstruction technique. FINDINGS: LOWER THORAX: There are atelectatic changes in the right lower lobe. There are small nodular opacities in the lung bases along with some interlobular septal thickening. Atelectatic changes are present in the lingula. ABDOMEN & PELVIS: . There remains a cystic structure in the region of the gallbladder fossa with 2 metallic clips with some central hyperdensity not significantly changed. The spleen, adrenal glands, pancreas, have an unremarkable appearance. There remains a 6 mm calcific density in the path of the right ureter at the pelvic inlet with some minimal ureteral ectasia proximal to this region. This could be related to a chronic right ureteral stone or an adjacent phleboliths.. There is no evidence of appendicitis. There is diffuse colonic diverticulosis but no evidence of diverticulitis. There is diffuse osteopenia of the bony structures. No evidence of acute bony finding. IMPRESSION: 1. Overall no significant change in the cystic structure in the gallbladder fossa containing a small central hyperdensity which may be postsurgical in nature. 2. No change in the 6 mm calcific density in the path of the right ureter at the pelvic inlet which could be due to a chronic ureteral stone or adjacent phleboliths with mild dilatation of the right pelvicaliceal system and proximal ureter proximal to this area. 3. Colonic diverticulosis without evidence of diverticulitis. Dictated by: Ramírez Lee MD 07/19/2020 16:04 Ramírez Lee MD in [place] 07/19/2020 16:04
[2020-07-19 15:01] VITALS: BP 160/89; PULSE 77; O2SAT 100
[2020-07-19 15:22] LABS: Basophils % 0.7 % (0.1-2.0); Eosinophils # 0.2 K/mm3 (0.0-0.4); Eosinophils % 3.1 % (0.1-12.0); Hematocrit 35.8 % (37.0-47.0); Hemoglobin 11.8 g/dL (12.2-16.2); Lymphocytes # 1.3 K/mm3 (0.7-4.5); Lymphocytes % 25.9 % (10-50); Mean Corpuscular HGB Conc 33.1 g/dL (31.8-35.4); Mean Corpuscular Hemoglobin 31.2 pg (27.0-31.2); Mean Corpuscular Volume 94.2 fl (81-99); Mean Platelet Volume 7.7 fl (7.4-10.4); Monocytes # 0.3 K/mm3 (0.1-1.0); Monocytes % 5.6 % (1.7-9.3); Neutrophils # 3.2 K/mm3 (1.8-7.8); Neutrophils % 64.6 % (37.0-80.0); Platelet Count 244 K/mm3 (142-424); Red Cell Distribution Width 12.4 % (11.5-17.5); White Blood Count 4.9 K/mm3 (4.8-10.8)
[2020-07-19 15:32] LABS: Microscopic, Urine URINE MICROSCOPIC (MICROSCOPIC)
--- NOTE | 2020-07-19 15:36 | HMH.EDGENADL ---
ED Disposition Clinical Impression: Abdominal pain Qualifiers: Abdominal location: generalized Qualified Code(s): R10.84 - Generalized abdominal pain Diarrhea Qualifiers: Diarrhea type: unspecified type Qualified Code(s): R19.7 - Diarrhea, unspecified Disposition: Admitted as Observation Condition on Discharge: Fair - Critical Care Critical Care Time: No Attestation: On 07/19/20, the high probability of a clinically significant, sudden or life threatening deterioration of the following system(s) required my full and direct attention, intervention and personal management. The time I documented below is in addition to time spent performing reported procedures but includes the following listed in this critical care notation. Medical Decision Making - Medical Records Medical records reviewed: Yes: I reviewed the patient's medical records. - Rashel Inquiry Pt receiving controlled substance: No Vital Signs: 07/19/20 14:42 07/19/20 15:01 07/19/20 18:40 Temperature 98.0 F 98.0 F Temperature Source Oral Oral Pulse Rate 74 Pulse Rate [Left Radial] 74 77 Respiratory Rate 19 15 Blood Pressure 155/80 H Blood Pressure [Right Arm] 166/88 H 160/89 H Blood Pressure Mean [Right Arm] 114 112 Blood Pressure Source [Right Arm] Automatic Cuff Automatic Cuff Blood Pressure Position [Right Arm] Sitting Sitting 02 Sat by Pulse Oximetry 100 100 Oxygen Delivery Method Nasal Cannula Room Air Nasal Cannula Oxygen Flow Rate (LPM) 2 2 - Lab Data Lab results reviewed: Yes: I reviewed the patient's lab results. Lab Results 07/19/20 15:00: WBC 4.9, RBC 3.80 L, Hgb 11.8 L, Hct 35.8 L, MCV 94.2, MCH 31.2, MCHC 33.1, RDW 12.4, Plt Count 244, MPV 7.7, Neut % (Auto) 64.6, Lymph % (Auto) 25.9, [place] % (Auto) 5.6, Eos % (Auto) 3.1, Baso % (Auto) 0.7, Neut # (Auto) 3.2, Lymph # (Auto) 1.3, [place] # (Auto) 0.3, Eos # (Auto) 0.2, Baso # (Auto) 0.0 07/19/20 15:00: Sodium 135 L, Potassium 4.0, Chloride 94 L, Carbon Dioxide 32 H, Anion Gap 13.0, BUN 10, Creatinine 0.70, Estimated Creat Clear 44, Estimated GFR 80, Est GFR ( Amer) 96, Glucose 111 H, Calcium 9.7, Total Bilirubin 0.5, AST 26, ALT 15, Alkaline Phosphatase 75, Total Protein 7.6, Albumin 4.3, Globulin 3.3 H, Albumin/Globulin Ratio 1.3, Amylase 47, Lipase 178 07/19/20 15:00: PT 33.1 H, INR 3.48 H 07/19/20 15:00: SARS-CoV-2 IgG Ab (Rapid) Negative, SARS-CoV-2 IgM Ab (Rapid) Negative 07/19/20 15:29: Urine Color Yellow, Urine Appearance Clear, Urine pH 8.0, Ur Specific [place] 1.015, Urine Protein Negative, Urine Glucose (UA) Negative, Urine Ketones Negative, Urine Blood 2+, Urine Nitrate Negative, Urine Bilirubin Negative, Urine Urobilinogen 0.2, Ur Leukocyte Esterase Negative, Urine RBC 5-10, Urine WBC Occasional, Ur Squamous Epith Cells None, Urine Bacteria None Result diagrams: 07/19/20 15:00 07/19/20 15:00 Orders (Tests/Meds): ED MEDICATIONS Generic Name Dose Route Start Last Admin Trade Name Freq PRN Reason Stop Dose Admin Acetaminophen 650 mg 07/19/20 18:34 Acetaminophen 325mg Tab PO 08/18/20 18:33 Q4HP PRN As Needed for Fever or Pain Alprazolam 0.5 mg 07/19/20 21:00 Xanax 0.5mg Tablet PO 08/18/20 20:59 BID FELA Carbamazepine 400 mg 07/20/20 09:00 Carbamazepine 200mg Tablet PO 08/19/20 08:59 DAILY FELA Digoxin 125 mcg 07/20/20 09:00 Digoxin 0.25mg Tablet PO 08/19/20 08:59 DAILY FELA Sodium Chloride 1,000 mls @ 75 mls/hr 07/19/20 18:34 07/19/20 19:16 Sod Chlor 0.9% 1000ml Bag IV 08/18/20 18:33 75 mls/hr .[id number] FELA Administration Non-Formulary Medication 3.75 mg 07/20/20 09:00 Warfarin Sodium [Coumadin 7.5mg Tablet] PO 08/19/20 08:59 DAILY FELA Ondansetron HCl 4 mg 07/19/20 18:34 Zofran 4mg/2ml Vial IV 08/18/20 18:33 Q8HP PRN Nausea Pantoprazole Sodium 40 mg 07/20/20 09:00 Protonix 40mg Tablet PO 08/19/20 08:59 DAILY FELA Potassium Chloride 20 meq 07/20/20
[2020-07-19 15:37] LABS: INR 3.48 (0.9-1.1); Prothrombin Time 33.1 seconds (9.4-11.8)
[2020-07-19 15:38] LABS: Chloride 94 mmol/L (98-107)
[2020-07-19 15:38] LABS: Appearance,Urine CLEAR (Clear); Bilirubin,Urine Negative (Negative); Blood, Urine 2+ (Negative); Color,Urine YELLOW (Yellow); Glucose,Urine (UA) Negative (Negative); Ketones,Urine Negative (Negative); Leukocyte Esterase,Urine Negative (Negative); Nitrate,Urine Negative (Negative); Protein,Urine Negative (Negative); Specific Gravity, Urine 1.015 (1.005-1.030); Urobilinogen,Urine 0.2 EU/dl (0.2)
[2020-07-19 15:39] LABS: Sodium 135 mmol/L (136-145)
[2020-07-19 15:41] LABS: Amylase 47 U/L (30-110); Blood Urea Nitrogen 10 mg/dl (7-17); Creatinine Clearance Estimated 44 mL/min (50-200); Estimated Glomerular Filt Rate 80 ml/min (>60); GFR (African American) 96 ML/MIN (>60)
[2020-07-19 15:42] LABS: Alanine Aminotransferase 15 U/L (12-78); Albumin Level 4.3 g/dl (3.5-5.0); Albumin/Globulin Ratio 1.3 (1.1-1.8); Alkaline Phosphatase 75 U/L (38-126); Aspartate Amino Transferase 26 U/L (14-36); Bilirubin,Total 0.5 mg/dl (0.2-1.3); Calcium 9.7 mg/dl (8.4-10.2); Carbon Dioxide 32 mmol/L (22.0-30.0); Globulin 3.3 g/dL (1.3-3.2); Glucose 111 mg/dl (74-100); Lipase 178 U/L (23-300); Total Protein,Serum 7.6 g/dl (6.3-8.2)
[2020-07-19 15:56] LABS: WBC,Urine Occasional #/hpf (0-3)
--- NOTE | 2020-07-19 17:18 | PC.NURSE ---
HS aware of admission
[2020-07-19 18:21] LABS: Coronavirus 19 IgG Antibody Negative (Negative); Coronavirus 19 IgM Antibody Negative (Negative)
[2020-07-19 18:40] VITALS: BP 155/80; PULSE 74; RESP 15; TEMP 36.7; O2SAT 99
[2020-07-19 18:50] VITALS: BMI 22.3
[2020-07-19 19:01] VITALS: BP 142/88; PULSE 95; RESP 20; TEMP 36.7; O2SAT 97
--- NOTE | 2020-07-19 19:22 | PC.NURSE ---
report given to eliseo
[2020-07-20 03:52] VITALS: BP 95/52; PULSE 67; RESP 16; TEMP 36.7; O2SAT 99
--- NOTE | 2020-07-20 03:56 | PC.NURSE ---
A&OX4. PT TOLERATING RA WELL THIS SHIFT. PT HAS SLIGHT LOWER ABD PAIN, HAS RECEIVED PRN TYLENOL PER JAN. ON REASSESSMENT, PT RESTING IN BED. PT HAS HAD NO BM THIS SHIFT. NO OTHER C/O THUS FAR, VSS WILL CONTINUE TO MONITOR.
[2020-07-20 06:00] VITALS: BMI 22.8
--- NOTE | 2020-07-20 07:11 | HMH.HP ---
*Admission Date: 07/19/20 *Chief complaint: Abdominal pain *History of present illness: 84-year-old female with diverticulosis presented to the emergency department yesterday after a total of 5 episodes of loose stools with one episode of incontinence over the preceding 36 hours. Patient had associated abdominal pain and intestinal cramping. She denies fevers, sick contacts, recent travel. She does report eating 1 food item out of the ordinary prior to onset of symptoms and that was a yellow tomato. Generally the patient does not eat tomatoes due to her diverticulosis. Patient's intestinal cramping was so bad on the day of admission that she ultimately sought treatment in the ER where work-up was unrevealing. Patient was admitted for observation with orders to collect a stool sample with patient's next episode of diarrhea. Patient has yet to have another bowel movement since admission [facility] History I have reviewed the patient's past medical history: Yes Medical History: Reports:: Anxiety, Atrial Fibrillation, Cancer (skin), Congestive Heart Failure, Chronic Obstructive Pulmonary Disease (COPD), Gastroesophageal Reflux Disease(GERD), Hyperlipidemia, Hypertension, Internal Pacemaker, Ulcer Denies:: Asthma, Diabetes Mellitus Type 1, Diabetes Mellitus Type 2, MRSA *Have you ever received a pneumonia vaccine?: No *Have you received a flu vaccine this season?: No Other Medical History: Reports: Arthritis, Fibromyalgia Laterality Cases: Bilateral: Tonsillectomy Other Surgeries: Yes: Appendectomy, Cholecystectomy, Colonoscopy, Hysterectomy-Total, Pacemaker, Skin Cancer Excision, Other Amputation: No Fractures: No - *Social History Smoking Status: Never smoker # Packs/Day (cigarettes): 0 #Yrs smoked (if former smoker): 0 Alcohol Intake: never Alcohol Intake Frequency:: other Substance Use Type: denies use *Occupational Status:: disabled Housing: house Household Members: spouse *Travel in the last 8 weeks: None - Psychiatric History Pschychiatric History:: Reports:: Anxiety Family Hx:: Cancer Review of Systems - Constitutional Denies body ache(s), Denies chills, Denies fever(s), Denies malaise - Eyes Denies blurry vision, Denies change in vision - *Cardiovascular Reports generalized swelling, Denies chest pain, Denies chest pain at rest, Denies chest pain with activity - *Respiratory Reports shortness of breath, Reports shortness of breath with activity, Denies change in phlegm color, Denies chest congestion, Denies cough - *Gastrointestinal Reports abdominal pain, Reports change in bowel habits, Reports change in stools, Reports loose stools, Denies bloating, Denies coffee ground vomit, Denies constipation, Denies heartburn, Denies difficulty swallowing, Denies feeling full early, Denies excessive passing of gas - *Musculoskeletal Denies abnormal walking, Denies joint pain Meds Home Medications Medication Instructions Recorded Confirmed Type carbamazepine 200 mg tablet 200 mg PO HS 90 Days #180 02/16/18 07/19/20 History digoxin 250 mcg (0.25 mg) tablet 125 mcg PO DAILY 90 Days #68 02/16/18 07/19/20 History umeclidinium 62.5 mcg-vilanterol 1 inh INHALATION DAILY 30 Days #60 02/16/18 07/19/20 History 25 mcg/actuation powdr for inhalation warfarin 7.5 mg tablet 7.5 mg PO HS 30 Days #33 02/16/18 07/19/20 History tramadol 50 mg tablet 50 mg PO NEEDED PRN 30 Days #30 05/11/18 07/19/20 History Pantoprazole Sodium [Protonix 40mg 20 mg PO DAILY 12/20/18 07/19/20 History tablet] Potassium Chloride 20 meq PO DAILY 10/09/19 07/19/20 History sotalol 80 mg tablet 120 mg PO BID tab 01/20/20 07/19/20 History ALPRAZolam [Xanax 0.5mg tab] 0.5 mg PO BID 07/19/20 07/19/20 History Acetaminophen [Tylenol Extra 500 mg PO Q4H PRN 07/19/20 07/19/20 History Strength] Allergies Allergy/AdvReac Type Severity Reaction Status Date / Time ciprofloxacin [From [facility]] Allergy Severe DIFFICULTY Verified 05/17/20 13:40 S
--- NOTE | 2020-07-20 07:27 | PC.NURSE ---
PT IN ENTERIC PRECAUTIONS T/O SHIFT. PT HAS HAD NO BM THIS SHIFT. PT UP EATING BREAKFAST ON FINAL ROUND. NO C/O.
[2020-07-20 07:58] VITALS: BP 124/83; PULSE 80; RESP 18; TEMP 36.7; O2SAT 99
--- NOTE | 2020-07-20 08:24 | P.CONPHA_ITS ---
[facility] Pharmacy VTE Monitoring - Patient Demographics Admission date: 07/19/20 Report Date: 07/20/20 Time: 08:24 Allergies/Adverse Reactions: Patient Allergies ciprofloxacin [From Cipro [facility]] Allergy (Severe, Verified 05/17/20 13:40) DIFFICULTY SPEAKING,SHORTNESS OF BREATH codeine Allergy (Severe, Verified 05/17/20 13:40) DIFFICULTY SPEAKING, SHORTNESS OF BREATH hydrocortisone [From Cipro HC] Allergy (Severe, Verified 05/17/20 13:40) DIFFICULTY SPEAKING,SHORTNESS OF BREATH Iodinated Contrast Media [Iodinated Contrast Media - IV Dye] Allergy (Severe, Verified 05/17/20 13:40) LOCKED JAWS fexofenadine [From Radha] Allergy (Intermediate, Verified 05/17/20 13:40) LIPS SWELL ioxaglic acid Allergy (Intermediate, Verified 05/17/20 13:40) I-HIVES; LIPS SWELL loratadine [From Claritin] Allergy (Intermediate, Verified 05/17/20 13:40) LIPS SWELL Penicillins Allergy (Intermediate, Verified 05/17/20 13:40) I-RASH rofecoxib Allergy (Intermediate, Verified 05/17/20 13:40) MAKES SICK ALL OVER tetracaine Allergy (Mild, Verified 05/17/20 13:40) PAIN IN EYE azithromycin [AZITHROMYCIN] Allergy (Unknown, Verified 05/17/20 13:40) calcium carbonate [From OS-ARMIDA] Allergy (Unknown, Verified 05/17/20 13:40) cefuroxime [CEFUROXIME] Allergy (Unknown, Verified 05/17/20 13:40) cerivastatin Allergy (Unknown, Verified 05/17/20 13:40) erythromycin base Allergy (Unknown, Verified 05/17/20 13:40) lovastatin [From Advicor] Allergy (Unknown, Verified 05/17/20 13:40) UNKNOWN niacin [From Advicor] Allergy (Unknown, Verified 05/17/20 13:40) UNKNOWN phytonadione (vitamin K1) [phytonadione] Allergy (Unknown, Verified 05/17/20 13:40) UNKOWN Sulfa (Sulfonamide Antibiotics) Allergy (Unknown, Verified 05/17/20 13:40) vitamin K2 [VITAMIN K2] Allergy (Unknown, Verified 05/17/20 13:40) cortisone Adverse Reaction (Intermediate, Verified 05/17/20 13:40) SWELLING aspirin [From Percodan] Adverse Reaction (Mild, Verified 05/17/20 13:40) HYPER clarithromycin [From Biaxin] Adverse Reaction (Mild, Verified 05/17/20 13:40) NA-DIARRHEA oxycodone [From Percodan] Adverse Reaction (Mild, Verified 05/17/20 13:40) HYPER Height: 1.7 m Weight: 65.913 kg Patient Problems: Current Active Problems (This Medical Record has been edited. Action required.) Diarrhea (Acute) Diverticulosis (Acute) Abdominal pain (Acute) - VTE Risk Labs: VTE Related Lab Results Hgb 11.8 g/dL (12.2-16.2) L 07/19/20 15:00 Hct 35.8 % (37.0-47.0) L 07/19/20 15:00 Plt Count 244 K/mm3 (142-424) 07/19/20 15:00 PT 33.1 seconds (9.4-11.8) H 07/19/20 15:00 INR 3.48 (0.9-1.1) H 07/19/20 15:00 BUN 10 mg/dl (7-17) 07/19/20 15:00 Creatinine 0.70 mg/dl (0.52-1.04) 07/19/20 15:00 Estimated Creat Clear 44 mL/min (50-200) 07/19/20 15:00 Was VTE Risk Assessment Performed: Yes VTE Score: 6 VTE Risk Level: Moderate Risk - Prophylaxis VTE Prophylaxis Ordered?: Yes Types of VTE Prophylaxis: Pharmacological Pharmacologic Type: Warfarin (INR=3.48)
--- NOTE | 2020-07-20 08:27 | PC.NURSE ---
PATIENT DAUGHTER CALLED TO CHECK ON PATIENT. VERFIED WITH PATIENT IF I COULD SPEAK WITH HER DAUGHTER. PATIENT STATED TO TELL HER THAT SHE WAS GOOD AND WOULD PROBABLY BE GOING HOME TODAY AND KESHIA WAS TAKING HER . THIS IS WHAT WAS TOLD TO DAUGHTER.
[2020-07-20 08:58] VITALS: PULSE 72
--- NOTE | 2020-07-20 10:56 | HMH.PHAINT ---
MEDICATION RECONCILIATION COMPLETED ON PATIENT USING EXTERNAL FILL HISTORY FROM PHARMACY, LIST FROM MD OFFICE, AND PHONE CALL TO [facility]. -ALEXANDRE ARELLANOD
--- NOTE | 2020-07-20 14:36 | HMH.PHAINT ---
DISCHARGE COUNSELING COMPLETED.
[2020-07-20 15:15] VITALS: BP 125/80; PULSE 82; RESP 18; TEMP 36.7; O2SAT 95
--- NOTE | 2020-07-25 17:01 | HMH.DCSUM ---
General - General Admission date:: 07/19/20 Discharge date: 07/20/20 HPI HPI: 84-year-old female with diverticulosis presented to the emergency department yesterday after a total of 5 episodes of loose stools with one episode of incontinence over the preceding 36 hours. Patient had associated abdominal pain and intestinal cramping. She denies fevers, sick contacts, recent travel. She does report eating 1 food item out of the ordinary prior to onset of symptoms and that was a yellow tomato. Generally the patient does not eat tomatoes due to her diverticulosis. Patient's intestinal cramping was so bad on the day of admission that she ultimately sought treatment in the ER where work-up was unrevealing. Patient was admitted for observation with orders to collect a stool sample with patient's next episode of diarrhea. Patient has yet to have another bowel movement since admission Hospital Course Hospital Course: Patient was admitted for observation and had no further loose stools. She did not produce 1 semisolid bowel movement that could not be tested due to the quality of the specimen for the diarrhea panel. Patient ate without complications. As her diarrhea had seemingly resolved and she was tolerating p.o. she was discharged home and will follow-up in the office in 1 week Objective Vital signs: Temp Pulse Resp BP Pulse Ox 98.1 F 82 18 125/80 95 07/20/20 15:15 07/20/20 15:15 07/20/20 15:15 07/20/20 15:15 07/20/20 15:15 DS: Diagnosis - Discharge Diagnosis (1) Diarrhea Status: Acute (2) Abdominal pain Status: Acute (3) Diverticulosis Status: Acute Discharge Plan - Patient Discharge Instructions ACTIVITY: Continue current activity DIET: continue same diet Patient Instructions: Diarrhea, Acute Abdominal Pain, Low-Fiber/Low-Residue Diet, Soft Diet, DI for Abdominal Pain-Adult - Follow up Plan Follow up with: Nrianjan Chavira MD [Primary Care Provider] - 07/27/20 10:30 am Disposition: Home, Self-Assisted Medications: Home Medications Medication Instructions Recorded Confirmed Type carbamazepine 200 mg tablet 200 mg PO HS 90 Days #180 02/16/18 07/19/20 History digoxin 250 mcg (0.25 mg) tablet 125 mcg PO DAILY 90 Days #68 02/16/18 07/19/20 History umeclidinium 62.5 mcg-vilanterol 1 puff IH DAILY 30 Days #60 02/16/18 07/20/20 History 25 mcg/actuation powdr for inhalation tramadol 50 mg tablet 25 mg PO BIDP PRN 30 Days #30 05/11/18 07/20/20 History Pantoprazole Sodium [Protonix 40mg 40 mg PO DAILY 12/20/18 07/20/20 History tablet] ALPRAZolam [Xanax 0.5mg tab] 0.5 mg PO BID 07/19/20 07/19/20 History Acetaminophen [Tylenol Extra 500 mg PO Q4HP PRN 07/19/20 07/20/20 History Strength] Sotalol HCl [Sotalol] 120 mg PO BID 07/20/20 07/20/20 History Warfarin Sodium 7.5 mg PO HS 07/20/20 07/20/20 History Prescriptions/Medication Reconciliation: Continued digoxin 250 mcg (0.25 mg) tablet 125 mcg PO DAILY 90 Days #68 umeclidinium 62.5 mcg-vilanterol 25 mcg/actuation powdr for inhalation 1 puff IH DAILY 30 Days #60 carbamazepine 200 mg tablet 200 mg PO HS 90 Days #180 tramadol 50 mg tablet 25 mg PO BIDP PRN 30 Days #30 PRN Reason: PAIN ALPRAZolam [Xanax 0.5mg tab] 0.5 mg PO BID Acetaminophen [Tylenol Extra Strength] 500 mg PO Q4HP PRN PRN Reason: As Needed For Fever Or Pain Warfarin Sodium 7.5 mg PO HS Pantoprazole Sodium [Protonix 40mg tablet] 40 mg PO DAILY Sotalol HCl [Sotalol] 120 mg PO BID - Problem Reconciliation Problems Reviewed?: Yes
== END 2020-07-20 16:35 | disposition home or self-care (01) ==
LOC: ER 17:18 → 2ND 19:21
PROVIDERS: Admitting Provider Internal Medicine Adolescent Medicine; Emergency Provider Emergency Medicine; PCP Family Medicine; Visit Provider Family Medicine
DX: R19.7 Diarrhea, unspecified (principal); K57.90 Diverticulosis of intestine, part unspecified, without perforation or abscess without bleeding; I48.91 Unspecified atrial fibrillation; I11.0 Hypertensive heart disease with heart failure; I50.9 Heart failure, unspecified; J44.9 Chronic obstructive pulmonary disease, unspecified; R10.0 Acute abdomen; Z95.0 Presence of cardiac pacemaker; Z79.01 Long term (current) use of anticoagulants; Z79.52 Long term (current) use of systemic steroids; Z88.1 Allergy status to other antibiotic agents; Z88.2 Allergy status to sulfonamides; Z88.0 Allergy status to penicillin; Z88.8 Allergy status to other drugs, medicaments and biological substances
CPT/HCPCS: 74176; 80053; 81001; 82150; 83690; 85025; 85610; 86328; 96365; 99284; G0378

== ENCOUNTER 2020-07-27 12:16 | Outpatient (CLI) | payer MEDICARE, OTHER, SELFPAY ==
[2020-07-27 14:03] LABS: PHA INR Fingerstick 2.4 (0.9-1.1)
== END 2020-07-27 14:06 | disposition home or self-care (01) ==
LOC: ACC 12:17
PROVIDERS: PCP Family Medicine; Visit Provider Family Medicine
DX: Z79.01 Long term (current) use of anticoagulants (principal)
CPT/HCPCS: 85610; 99211; G0463

== ENCOUNTER 2020-08-29 11:41 | Outpatient (CLI) | payer MEDICARE, OTHER, SELFPAY ==
[2020-08-29 14:14] LABS: PHA INR Fingerstick 3.1 (0.9-1.1)
== END 2020-08-29 14:15 | disposition home or self-care (01) ==
LOC: ACC 11:44
PROVIDERS: PCP Family Medicine; Visit Provider Family Medicine
DX: Z51.81 Encounter for therapeutic drug level monitoring (principal); Z79.01 Long term (current) use of anticoagulants; I48.91 Unspecified atrial fibrillation
CPT/HCPCS: 85610; 99211; G0463

== ENCOUNTER 2020-09-07 14:57 | Emergency (ER) | payer MEDICARE, OTHER, SELFPAY ==
[2020-09-07 14:57] VITALS: BP 171/94; PULSE 70; RESP 21; TEMP 36.6; O2SAT 97; BMI 23.5
--- NOTE | 2020-09-07 15:13 | CT_ITS ---
PROCEDURE: CT HEAD/BRAIN WO CON CLINICAL INDICATION: patric Altered mental status, altered level of consciousness, confusion, disorientation, memory loss COMPARISON: CT CT HEAD/BRAIN WO CON from 03/10/2020 TECHNIQUE: Axial images obtained. All CT scans at the facility use one or more dose reduction, viz: automated exposure control, ma/kV adjustment per patient size (including targeted exams where dose is matched to indication, i.e. head), or iterative reconstruction technique. FINDINGS: No midline shift, mass effect, intracranial hemorrhage, hydrocephalus, or extra-axial fluid collection is evident. There is generalized atrophy with hypoattenuation of the periventricular white matter consistent with microangiopathic changes. The calvarium has an unremarkable appearance. No mastoid effusion. No sinus air-fluid level. IMPRESSION: No acute intracranial finding Dictated by: Ramírez Lee MD 09/08/2020 08:59 Ramírez Lee MD in [facility] 09/08/2020 08:59
--- NOTE | 2020-09-07 15:13 | ECG_ITS ---
APPROVED REPORT Exam: Resting ECG HR:81 bpm ECG Measurements Heart Rate 81 AXES OK 134 P 24 QRSd 86 QRS 19 QT 366 T 18 QTc 425 Conclusion Normal sinus rhythm with sinus arrhythmia Normal ECG Electronically signed by : Niranjan Mccarty, 09/08/2020 14:33:33
--- NOTE | 2020-09-07 15:14 | XR_ITS ---
PROCEDURE: XR CHEST PORTABLE CLINICAL HISTORY: soa COMPARISON: The FINDINGS: Mild cardiomegaly without failure. Bipolar pacemaker is present from left subclavian approach. Calcified granulomas present in the right upper lobe. In addition, there is some nodular density noted in the right upper lobe laterally somewhat less so than when compared to the previous study but was not present at all on 10/09/2019. Previously there was pneumonia here. This could be related to some postinflammatory scarring. Chest CT may confirm and to exclude an underlying nodule. No acute bony abnormalities. IMPRESSION: Cardiomegaly with pacemaker present. Indeterminate nodularity right upper lobe. Chest CT may provide further evaluation. Dictated by: Ramírez Lee MD 09/07/2020 19:58 Ramírez Lee MD in [facility] 09/07/2020 19:58
[2020-09-07 15:22] LABS: Basophils % 0.6 % (0.1-2.0); Eosinophils # 0.1 K/mm3 (0.0-0.4); Eosinophils % 1.9 % (0.1-12.0); Hematocrit 39.8 % (37.0-47.0); Hemoglobin 12.7 g/dL (12.2-16.2); Lymphocytes # 2.1 K/mm3 (0.7-4.5); Lymphocytes % 32.7 % (10-50); Mean Corpuscular Hemoglobin 30.1 pg (27.0-31.2); Mean Corpuscular Volume 94.2 fl (81-99); Mean Platelet Volume 7.8 fl (7.4-10.4); Monocytes # 0.5 K/mm3 (0.1-1.0); Monocytes % 7.2 % (1.7-9.3); Neutrophils # 3.7 K/mm3 (1.8-7.8); Neutrophils % 57.6 % (37.0-80.0); Platelet Count 302 K/mm3 (142-424); Red Blood Count 4.22 M/mm3 (4.20-5.40); Red Cell Distribution Width 12.5 % (11.5-17.5); White Blood Count 6.4 K/mm3 (4.8-10.8)
[2020-09-07 15:24] LABS: Chloride 91 mmol/L (98-107); Potassium 3.9 mmoL/L (3.5-5.1); Sodium 131 mmol/L (136-145)
[2020-09-07 15:27] LABS: Alanine Aminotransferase 17 U/L (12-78); Albumin Level 4.8 g/dl (3.5-5.0); Albumin/Globulin Ratio 1.4 (1.1-1.8); Alkaline Phosphatase 78 U/L (38-126); Anion Gap 13.9 mEq/L (5-15); Aspartate Amino Transferase 30 U/L (14-36); Bilirubin,Total 0.5 mg/dl (0.2-1.3); Blood Urea Nitrogen 12 mg/dl (7-17); Carbon Dioxide 30 mmol/L (22.0-30.0); Creatinine Clearance Estimated 45 mL/min (50-200); Estimated Glomerular Filt Rate 80 ml/min (>60); GFR (African American) 96 ML/MIN (>60); Globulin 3.4 g/dL (1.3-3.2); Total Protein,Serum 8.2 g/dl (6.3-8.2)
[2020-09-07 15:28] VITALS: BP 140/95; PULSE 80; O2SAT 96
[2020-09-07 15:28] LABS: Calcium 9.7 mg/dl (8.4-10.2); Glucose 107 mg/dl (74-100)
--- NOTE | 2020-09-07 15:28 | CT_ITS ---
PROCEDURE: CT LUMBAR SPINE WO CON CLINICAL HISTORY: back pain COMPARISON: CT CT ABDOMEN PELVIS WO CON from 07/19/2020 TECHNIQUE: Axial images obtained with sagittal and coronal reformats. All CT scans at the facility use one or more dose reduction, viz: automated exposure control, ma/kV adjustment per patient size (including targeted exams where dose is matched to indication, i.e. head), or iterative reconstruction technique. FINDINGS: No fracture or dislocation.. Diffuse osteopenia. L3-L4: Mild bulging disc with facet and ligamentum hypertrophy with bilateral lateral recess narrowing and bilateral foraminal narrowing. 2-3 mm anterolisthesis of L3 L4-5: 4-5 mm anterolisthesis L4 on L5 with bulging disc along facet and ligamentum hypertrophy with bilateral lateral recess and foraminal narrowing. Prominent facet arthritic changes with facet sclerosis. L5-S1: Degenerative disc disease with bulging disc and a broad-based left paracentral and foraminal disc osteophyte complex impinging upon the left S1 nerve root and causing left-sided foraminal narrowing. Nodularity is noted in the right lung base with several small nodules medially measuring up to 5 mm with atelectatic changes in the right lung base posterior medially. Colonic diverticulosis is present. No change in the cystic structure with central hyperdensity in the gallbladder fossa with surgical clips at this area. IMPRESSION: Lumbar spondylosis as detailed above. Broad-based left paracentral and foraminal disc osteophyte complex at L5-S1 Other nonacute findings as described above Dictated by: Ramírez Lee MD 09/08/2020 09:08 Ramírez Lee MD in [facility] 09/08/2020 09:08
--- NOTE | 2020-09-07 15:36 | PC.NURSE ---
Rad at bedside
[2020-09-07 15:40] LABS: Troponin I < 0.01 ng/ml (0.00-0.034)
[2020-09-07 15:55] LABS: Coronavirus 19 IgG Antibody Negative (Negative); Coronavirus 19 IgM Antibody Negative (Negative)
[2020-09-07 16:00] LABS: Microscopic, Urine URINE MICROSCOPIC (MICROSCOPIC)
--- NOTE | 2020-09-07 16:02 | PC.NURSE ---
Pt to rad.
[2020-09-07 16:03] LABS: Appearance,Urine CLEAR (Clear); Bilirubin,Urine Negative (Negative); Blood, Urine 2+ (Negative); Color,Urine YELLOW (Yellow); Glucose,Urine (UA) Negative (Negative); Ketones,Urine Negative (Negative); Leukocyte Esterase,Urine Negative (Negative); Nitrate,Urine Negative (Negative); Protein,Urine Negative (Negative); Urobilinogen,Urine 0.2 EU/dl (0.2)
[2020-09-07 16:13] LABS: Bacteria,Urine Trace /lpf
--- NOTE | 2020-09-07 16:25 | HMH.EDGENADL ---
ED Disposition Clinical Impression: Lumbar radiculopathy, Pacemaker Sciatica Qualifiers: Laterality: right Qualified Code(s): M54.31 - Sciatica, right side Chest pain Qualifiers: Chest pain type: unspecified Qualified Code(s): R07.9 - Chest pain, unspecified Disposition: Home, Self-Care Condition on Discharge: Good Instructions: DI for Back Pain With Sciatica Referrals: Niranjan Chavira MD [Primary Care Provider] - - Critical Care Critical Care Time: No Attestation: On 09/07/20, the high probability of a clinically significant, sudden or life threatening deterioration of the following system(s) required my full and direct attention, intervention and personal management. The time I documented below is in addition to time spent performing reported procedures but includes the following listed in this critical care notation. Medical Decision Making - Medical Records Medical records reviewed: Yes: I reviewed the patient's medical records. - Rashel Inquiry Pt receiving controlled substance: No Vital Signs: 09/07/20 14:57 09/07/20 15:28 09/07/20 17:00 Temperature 97.8 F Temperature Source Axillary Pulse Rate [Right] 70 80 70 Respiratory Rate 21 Blood Pressure [Right Arm] 171/94 H 140/95 H 138/97 H Blood Pressure Mean [Right Arm] 119 110 110 Blood Pressure Source [Right Arm] Automatic Cuff Blood Pressure Position [Right Arm] Sitting 02 Sat by Pulse Oximetry 97 96 Oxygen Delivery Method Room Air - Lab Data Lab Results 09/07/20 15:04: WBC 6.4, RBC 4.22, Hgb 12.7, Hct 39.8, MCV 94.2, MCH 30.1, MCHC 32.0, RDW 12.5, Plt Count 302, MPV 7.8, Neut % (Auto) 57.6, Lymph % (Auto) 32.7, [place] % (Auto) 7.2, Eos % (Auto) 1.9, Baso % (Auto) 0.6, Neut # (Auto) 3.7, Lymph # (Auto) 2.1, [place] # (Auto) 0.5, Eos # (Auto) 0.1, Baso # (Auto) 0.0 09/07/20 15:04: Sodium 131 L, Potassium 3.9, Chloride 91 L, Carbon Dioxide 30, Anion Gap 13.9, BUN 12, Creatinine 0.70, Estimated Creat Clear 45, Estimated GFR 80, Est GFR ( Amer) 96, Glucose 107 H, Calcium 9.7, Total Bilirubin 0.5, AST 30, ALT 17, Alkaline Phosphatase 78, Troponin I < 0.01, Total Protein 8.2, Albumin 4.8, Globulin 3.4 H, Albumin/Globulin Ratio 1.4 09/07/20 15:04: SARS-CoV-2 IgG Ab (Rapid) Negative, SARS-CoV-2 IgM Ab (Rapid) Negative 09/07/20 15:51: Urine Color Yellow, Urine Appearance Clear, Urine pH 8.0, Ur Specific [place] 1.010, Urine Protein Negative, Urine Glucose (UA) Negative, Urine Ketones Negative, Urine Blood 2+, Urine Nitrate Negative, Urine Bilirubin Negative, Urine Urobilinogen 0.2, Ur Leukocyte Esterase Negative, Urine RBC 5-10, Urine WBC 5-10, Ur Squamous Epith Cells 3-5, Urine Bacteria Trace Result diagrams: 09/07/20 15:04 09/07/20 15:04 Orders (Tests/Meds): ED MEDICATIONS Discontinued Medications Generic Name Dose Route Start Last Admin Trade Name Freq PRN Reason Stop Dose Admin Promethazine HCl 25 mg 09/07/20 15:28 09/07/20 16:43 Promethazine Hcl 25mg/Ml 1ml Vial IV 09/07/20 15:29 25 mg ONCE ONE Administration Sodium Chloride 25 ml 09/07/20 15:28 09/07/20 16:43 Sodium Chloride 0.9% 25ml Bag IV 09/07/20 15:29 25 ml ONCE ONE Administration ORDERS Category Date Time Status CT head/brain wo con Stat Cat Scan 09/07/20 15:[address] lumbar spine wo con Stat Cat Scan 09/07/20 15:28 Taken XR chest portable Stat Exams 09/07/20 15:14 Taken Troponin I Q3H Lab 09/07/20 18:15 Ordered Troponin I Q3H Lab 09/07/20 21:15 Ordered - Radiology Data #1 Image(s): Chest Image Reviewed: Yes I reviewed the patient's radiology results, Yes I reviewed the patient's radiology image Preliminary Findings: Normal/NAD - CT Data CT Scan: Head, L-Spine Time Received: 17:[address] Reviewed: Yes: I have reviewed the patient's CT results, I have viewed the radiologist's interpretation Findings Narrative: CT of the head shows chronic changes without any evidence of acute intracranial abnormality. CT lety
[2020-09-07 17:00] VITALS: BP 138/97; PULSE 70
[2020-09-07 18:54] VITALS: BP 118/75; PULSE 70; RESP 18; TEMP 36.6; O2SAT 99
== END 2020-09-07 19:04 | disposition home or self-care (01) ==
PROVIDERS: Emergency Provider Emergency Medicine; PCP Family Medicine
DX: M54.31 Sciatica, right side (principal); M54.16 Radiculopathy, lumbar region; R06.02 Shortness of breath; K21.9 Gastro-esophageal reflux disease without esophagitis; I48.20 Chronic atrial fibrillation, unspecified; J44.9 Chronic obstructive pulmonary disease, unspecified; E78.5 Hyperlipidemia, unspecified; I10 Essential (primary) hypertension; Z88.8 Allergy status to other drugs, medicaments and biological substances; Z95.0 Presence of cardiac pacemaker; Z79.899 Other long term (current) drug therapy; Z01.84 Encounter for antibody response examination
CPT/HCPCS: 70450; 71045; 72131; 80053; 81001; 84484; 85025; 86328; 93005; 96374; 99283

== ENCOUNTER → 2020-10-19 10:23 | Outpatient (CLI) | payer MEDICARE, OTHER, SELFPAY ==
[2020-10-19 11:57] LABS: PHA INR Fingerstick 3.2 (0.9-1.1)
== END | disposition home or self-care (01) ==
PROVIDERS: PCP Family Medicine; Visit Provider Family Medicine
DX: Z51.81 Encounter for therapeutic drug level monitoring (principal); Z79.01 Long term (current) use of anticoagulants; I48.91 Unspecified atrial fibrillation
CPT/HCPCS: 85610; 99211; G0463

== ENCOUNTER 2020-11-02 10:42 | Outpatient (CLI) | payer MEDICARE, OTHER, SELFPAY ==
[2020-11-02 14:55] LABS: PHA INR Fingerstick 2.5 (0.9-1.1)
== END 2020-11-02 15:24 | disposition home or self-care (01) ==
LOC: ACC 10:44
PROVIDERS: PCP Family Medicine; Visit Provider Family Medicine
DX: Z51.81 Encounter for therapeutic drug level monitoring (principal); Z79.01 Long term (current) use of anticoagulants; I48.91 Unspecified atrial fibrillation
CPT/HCPCS: 85610; 99211; G0463

== ENCOUNTER 2020-11-23 12:53 | Outpatient (CLI) | payer MEDICARE, OTHER, SELFPAY ==
[2020-11-23 13:41] LABS: PHA INR Fingerstick 2.5 (0.9-1.1)
== END 2020-11-23 13:42 | disposition home or self-care (01) ==
LOC: ACC 12:55
PROVIDERS: PCP Family Medicine; Visit Provider Family Medicine
DX: Z51.81 Encounter for therapeutic drug level monitoring (principal); Z79.01 Long term (current) use of anticoagulants; I48.91 Unspecified atrial fibrillation
CPT/HCPCS: 85610; 99211; G0463

== ENCOUNTER 2021-01-11 12:23 | Outpatient (CLI) | payer MEDICARE, OTHER, SELFPAY ==
[2021-01-11 14:08] LABS: PHA INR Fingerstick 2.4 (0.9-1.1)
== END 2021-01-11 14:33 | disposition home or self-care (01) ==
LOC: ACC 12:24
PROVIDERS: PCP Family Medicine; Visit Provider Family Medicine
DX: Z51.81 Encounter for therapeutic drug level monitoring (principal); Z79.01 Long term (current) use of anticoagulants; I48.91 Unspecified atrial fibrillation
CPT/HCPCS: 85610; 99211; G0463

== ENCOUNTER → 2021-01-25 12:08 | Outpatient (CLI) | payer MEDICARE, OTHER, SELFPAY ==
[2021-01-25 13:04] LABS: Basophils % 0.6 % (0.1-2.0); Eosinophils # 0.2 K/mm3 (0.0-0.4); Eosinophils % 3.1 % (0.1-12.0); Hematocrit 36.8 % (37.0-47.0); Hemoglobin 11.3 g/dL (12.2-16.2); Lymphocytes # 1.4 K/mm3 (0.7-4.5); Mean Corpuscular HGB Conc 30.8 g/dL (31.8-35.4); Mean Corpuscular Hemoglobin 30.5 pg (27.0-31.2); Mean Corpuscular Volume 99.1 fl (81-99); Mean Platelet Volume 7.9 fl (7.4-10.4); Monocytes # 0.4 K/mm3 (0.1-1.0); Monocytes % 7.4 % (1.7-9.3); Neutrophils # 3.1 K/mm3 (1.8-7.8); Neutrophils % 60.9 % (37.0-80.0); Platelet Count 221 K/mm3 (142-424); Red Blood Count 3.71 M/mm3 (4.20-5.40); Red Cell Distribution Width 12.7 % (11.5-17.5); White Blood Count 5.1 K/mm3 (4.8-10.8)
[2021-01-25 13:26] LABS: Chloride 97 mmol/L (98-107); Potassium 4.2 mmoL/L (3.5-5.1); Sodium 137 mmol/L (136-145)
[2021-01-25 13:29] LABS: Alanine Aminotransferase 13 U/L (12-78); Albumin Level 4.6 g/dl (3.5-5.0); Albumin/Globulin Ratio 1.4 (1.1-1.8); Alkaline Phosphatase 73 U/L (38-126); Anion Gap 9.2 mEq/L (5-15); Aspartate Amino Transferase 26 U/L (14-36); Bilirubin,Total 0.5 mg/dl (0.2-1.3); Blood Urea Nitrogen 12 mg/dl (7-17); Carbon Dioxide 35 mmol/L (22.0-30.0); Estimated Glomerular Filt Rate 80 ml/min (>60); GFR (African American) 96 ML/MIN (>60); Globulin 3.4 g/dL (1.3-3.2)
[2021-01-25 13:30] LABS: Calcium 9.8 mg/dl (8.4-10.2); Glucose 87 mg/dl (74-100)
[2021-01-25 14:02] LABS: Thyroid Stimulating Hormone 0.75 uIU/mL (0.465-4.68)
== END ==
DX: I48.0 Paroxysmal atrial fibrillation (principal); Z79.899 Other long term (current) drug therapy
CPT/HCPCS: 36415; 80053; 84443; 85025

== ENCOUNTER 2021-02-22 11:50 | Outpatient (CLI) | payer MEDICARE, OTHER, SELFPAY ==
[2021-02-22 14:23] LABS: PHA INR Fingerstick 2.4 (0.9-1.1)
== END 2021-02-22 14:45 | disposition home or self-care (01) ==
LOC: ACC 11:51
PROVIDERS: PCP Family Medicine; Visit Provider Family Medicine
DX: Z51.81 Encounter for therapeutic drug level monitoring (principal); Z79.01 Long term (current) use of anticoagulants; I48.91 Unspecified atrial fibrillation
CPT/HCPCS: 85610; 99211; G0463

== ENCOUNTER 2021-04-12 11:33 | Outpatient (CLI) | payer MEDICARE, OTHER, SELFPAY ==
[2021-04-12 14:37] LABS: PHA INR Fingerstick 2.6 (0.9-1.1)
== END 2021-04-12 15:07 | disposition home or self-care (01) ==
LOC: ACC 11:36
PROVIDERS: PCP Family Medicine; Visit Provider Family Medicine
DX: Z51.81 Encounter for therapeutic drug level monitoring (principal); Z79.01 Long term (current) use of anticoagulants; I48.91 Unspecified atrial fibrillation
CPT/HCPCS: 85610; 99211; G0463

== ENCOUNTER 2021-05-24 10:58 | Outpatient (CLI) | payer MEDICARE, OTHER, SELFPAY ==
[2021-05-24 15:56] LABS: PHA INR Fingerstick 3.2 (0.9-1.1)
== END 2021-05-24 15:58 | disposition home or self-care (01) ==
LOC: ACC 10:58
PROVIDERS: PCP Family Medicine; Visit Provider Family Medicine
DX: Z51.81 Encounter for therapeutic drug level monitoring (principal); Z79.01 Long term (current) use of anticoagulants; I48.91 Unspecified atrial fibrillation
CPT/HCPCS: 85610; 99211; G0463

== ENCOUNTER → 2021-06-09 11:27 | Outpatient (CLI) | payer MEDICARE, OTHER, SELFPAY | PROVIDERS: Visit Provider Family Medicine | DX: Z20.822 Contact with and (suspected) exposure to COVID-19 (principal) | CPT/HCPCS: U0003 ==

== ENCOUNTER 2021-06-28 12:30 | Outpatient (CLI) | payer MEDICARE, OTHER, SELFPAY ==
[2021-06-28 13:03] LABS: PHA INR Fingerstick 2.3 (0.9-1.1)
== END 2021-06-28 13:05 | disposition home or self-care (01) ==
LOC: ACC 12:32
PROVIDERS: PCP Family Medicine; Visit Provider Family Medicine
DX: Z51.81 Encounter for therapeutic drug level monitoring (principal); Z79.01 Long term (current) use of anticoagulants; I48.91 Unspecified atrial fibrillation
CPT/HCPCS: 85610; 99211; G0463

== ENCOUNTER 2021-07-26 11:14 | Outpatient (CLI) | payer MEDICARE, OTHER, SELFPAY ==
[2021-07-26 15:06] LABS: PHA INR Fingerstick 2.7 (0.9-1.1)
== END 2021-07-26 16:19 | disposition home or self-care (01) ==
LOC: ACC 11:14
PROVIDERS: PCP Family Medicine; Visit Provider Family Medicine
DX: Z51.81 Encounter for therapeutic drug level monitoring (principal); Z79.01 Long term (current) use of anticoagulants; I48.91 Unspecified atrial fibrillation
CPT/HCPCS: 85610; 99211; G0463

== ENCOUNTER 2021-09-13 10:53 | Outpatient (CLI) | payer MEDICARE, OTHER, SELFPAY | END 2021-09-13 11:47 | disposition home or self-care (01) | LOC: ACC 10:55 | PROVIDERS: PCP Family Medicine; Visit Provider Family Medicine | DX: Z51.81 Encounter for therapeutic drug level monitoring (principal); Z79.01 Long term (current) use of anticoagulants; I48.91 Unspecified atrial fibrillation | CPT/HCPCS: 85610; 99211; G0463 ==

== ENCOUNTER 2021-10-25 12:30 | Outpatient (CLI) | payer MEDICARE, OTHER, SELFPAY ==
[2021-10-25 12:55] LABS: PHA INR Fingerstick 2.4 (0.9-1.1)
== END 2021-10-25 12:57 | disposition home or self-care (01) ==
LOC: ACC 12:32
PROVIDERS: PCP Family Medicine; Visit Provider Family Medicine
DX: Z51.81 Encounter for therapeutic drug level monitoring (principal); Z79.01 Long term (current) use of anticoagulants; I48.91 Unspecified atrial fibrillation
CPT/HCPCS: 85610; 99211; G0463

== ENCOUNTER 2021-12-13 12:16 | Outpatient (CLI) | payer MEDICARE, OTHER, SELFPAY ==
[2021-12-13 15:57] LABS: PHA INR Fingerstick 2.5 (0.9-1.1)
== END 2021-12-13 16:02 | disposition home or self-care (01) ==
LOC: ACC 12:18
PROVIDERS: PCP Family Medicine; Visit Provider Family Medicine
DX: Z51.81 Encounter for therapeutic drug level monitoring (principal); Z79.01 Long term (current) use of anticoagulants; I48.91 Unspecified atrial fibrillation
CPT/HCPCS: 85610; 99211; G0463

== ENCOUNTER → 2022-01-08 08:24 | Outpatient (CLI) | payer MEDICARE, OTHER, SELFPAY ==
--- NOTE | 2022-01-08 08:28 | CT_ITS ---
FINAL REPORT TECHNIQUE: Axial CT images were performed through the chest without contrast. Coronal reformatted images were submitted. This study was performed with techniques to keep radiation doses as low as reasonably achievable (ALARA). Individualized dose reduction techniques using automated exposure control or adjustment of mA and/or kV according to the patient's size were employed. CLINICAL HISTORY: PULMONARY NODULES COMPARISON: March 10, 2020 FINDINGS: There is streak artifact arising from a left upper anterior chest wall pacemaker. There is no axillary adenopathy. There is no hilar adenopathy. There are multiple small mediastinal lymph nodes which is similar to previous. The heart size is normal. There is no pericardial or pleural effusion. Limited images of the upper abdomen are unremarkable. On the lung window images the previously noted wedge-shaped focus in the posterior right upper lobe has markedly improved. There is some coarse linear density at this location on today's exam which is probably post inflammatory. The previously noted wedge shaped focus in the inferior lingula has significantly decreased in size. There is a new wedge-shaped focus in the right lobe base well seen on image 204 of series 3. There is also some new linear/nodular areas of density in the anterior right lower lobe seen on image [id number]. IMPRESSION: Resolution of several wedge-shaped densities but development of a new wedge-shaped density at the right lung base and new linear/nodular densities in the right lower lobe. Given the shifting appearance, findings are favored to be inflammatory rather than neoplastic. Recommend follow-up in 3 months. Reviewed, Interpreted and Dictated by Kirk Dickerson MD Transcribed by Rizwana Whitten Authenticated by Kirk Dickerson MD on 01/08/2022 11:16:01 AM [facility]
== END ==
PROVIDERS: PCP Internal Medicine Adolescent Medicine; Visit Provider Internal Medicine Adolescent Medicine
DX: R91.8 Other nonspecific abnormal finding of lung field (principal)
CPT/HCPCS: 71250

== ENCOUNTER → 2022-01-29 10:48 | Outpatient (POV) | payer MEDICARE, OTHER, SELFPAY | PROVIDERS: Visit Provider Dermatology | DX: Z00.00 Encounter for general adult medical examination without abnormal findings (principal) ==

== ENCOUNTER 2022-01-29 11:36 | Outpatient (CLI) | payer MEDICARE, OTHER, SELFPAY ==
[2022-01-29 14:04] LABS: PHA INR Fingerstick 2.9 (0.9-1.1)
== END 2022-01-29 14:16 | disposition home or self-care (01) ==
LOC: ACC 11:39
PROVIDERS: PCP Internal Medicine Adolescent Medicine; Visit Provider Family Medicine
DX: Z51.81 Encounter for therapeutic drug level monitoring (principal); Z79.01 Long term (current) use of anticoagulants; I48.91 Unspecified atrial fibrillation
CPT/HCPCS: 85610; 99211; G0463

== ENCOUNTER 2022-02-24 15:56 | Emergency (ER) | payer MEDICARE, OTHER, SELFPAY ==
[2022-02-24] VITALS (10 sets, daily range): BP systolic 128–179; BP diastolic 73–97; PULSE 60–86; RESP 15–18; TEMP 36.5–37.2; O2SAT 95–99; BMI 22.7
--- NOTE | 2022-02-24 16:06 | HMH.EDNVD ---
ED Disposition Clinical Impression: Gastroenteritis Disposition: Still a Patient Condition on Discharge: Fair Instructions: DI for Diarrhea and Traveler's Diarrhea -- Adult, DI for Diarrhea and Traveler's Diarrhea -- Child, DI for Nausea -- Adult, DI for Nausea -- Child Additional Instructions: Follow-up with your primary care physician in about 2 to 3 days. Return to the emergency department immediately if you feel worse in any way. Stick with a clear liquid diet for the next 2 days. - Critical Care Critical Care Time: No Attestation: On , the high probability of a clinically significant, sudden or life threatening deterioration of the following system(s) required my full and direct attention, intervention and personal management. The time I documented below is in addition to time spent performing reported procedures but includes the following listed in this critical care notation. Medical Decision Making - Medical Records Medical records reviewed: Yes: I reviewed the patient's medical records. - Rashel Inquiry Pt receiving controlled substance: No Vital Signs: 02/24/22 15:37 02/24/22 16:00 02/24/22 16:30 Temperature 99.0 F Temperature Source Oral Pulse Rate 66 60 Pulse Rate [Right Radial] 82 Respiratory Rate 15 Blood Pressure 147/76 H 142/75 H Blood Pressure [Right Arm] 159/91 H Blood Pressure Mean 99 97 Blood Pressure Mean [Right Arm] 113 Blood Pressure Source [Right Arm] Automatic Cuff Blood Pressure Position [Right Arm] Sitting 02 Sat by Pulse Oximetry 96 99 97 Oxygen Delivery Method Room Air 02/24/22 17:00 02/24/22 17:33 02/24/22 18:01 Temperature Temperature Source Pulse Rate 60 67 64 Pulse Rate [Right Radial] Respiratory Rate Blood Pressure 158/82 H 131/88 169/90 H Blood Pressure [Right Arm] Blood Pressure Mean 107 102 116 Blood Pressure Mean [Right Arm] Blood Pressure Source [Right Arm] Blood Pressure Position [Right Arm] 02 Sat by Pulse Oximetry 98 97 97 Oxygen Delivery Method 02/24/22 18:30 Temperature Temperature Source Pulse Rate 60 Pulse Rate [Right Radial] Respiratory Rate Blood Pressure 163/87 H Blood Pressure [Right Arm] Blood Pressure Mean 112 Blood Pressure Mean [Right Arm] Blood Pressure Source [Right Arm] Blood Pressure Position [Right Arm] 02 Sat by Pulse Oximetry 98 Oxygen Delivery Method - Lab Data Lab results reviewed: Yes: I reviewed the patient's lab results. Lab Results 02/24/22 17:05: WBC 7.0, RBC 3.70 L, Hgb 11.4 L, Hct 34.7 L, MCV 93.6, MCH 30.8, MCHC 32.9, RDW 12.8, Plt Count 263, MPV 8.0, Neut % (Auto) 74.5, Lymph % (Auto) 17.6, [place] % (Auto) 4.4, Eos % (Auto) 2.7, Baso % (Auto) 0.8, Neut # (Auto) 5.2, Lymph # (Auto) 1.2, [place] # (Auto) 0.3, Eos # (Auto) 0.2, Baso # (Auto) 0.1 02/24/22 17:05: Sodium 133 L, Potassium 4.0, Chloride 96 L, Carbon Dioxide 31 H, Anion Gap 10.0, BUN 11, Creatinine 0.70, Estimated Creat Clear 42, Estimated GFR 79, Est GFR ( Amer) 96, Glucose 97, Calcium 8.8, Total Bilirubin 0.5, AST 29, ALT 15, Alkaline Phosphatase 92, Total Protein 7.7, Albumin 4.4, Globulin 3.3 H, Albumin/Globulin Ratio 1.3, Lipase 189 Result diagrams: 02/24/22 17:05 02/24/22 17:05 Orders (Tests/Meds): ED MEDICATIONS Discontinued Medications Generic Name Dose Route Start Last Admin Trade Name Freq PRN Reason Stop Dose Admin Diatrizoate Meglum/Diatrizoate Sod 30 ml 02/24/22 16:12 02/24/22 17:22 Diatrizoate Michaela 66% & Diatrizoate Na 10% 30ml Udc PO 02/24/22 16:13 30 ml ONCE ONE Administration Ondansetron HCl 4 mg 02/24/22 16:17 02/24/22 17:22 Ondansetron 4mg/2ml Vial IV 02/24/22 16:18 4 mg ONCE ONE Administration ORDERS Category Date Time Status CT abdomen pelvis wo con Stat Cat Scan 02/24/22 16:12 Ordered Urinalysis-Acute [Urinalysis and Microscopic] Stat Lab 02/24/22 19:42 Received Medical Decision Narrative: The patient presents to the [facility]
--- NOTE | 2022-02-24 16:12 | CT_ITS ---
PROCEDURE INFORMATION: Exam: CT Abdomen And Pelvis Without Contrast Exam date and time: 02/24/2022 8:23 PM Age: 86 years old Clinical indication: Abdominal pain; Generalized TECHNIQUE: Imaging protocol: Computed tomography of the abdomen and pelvis without contrast. Total images: 287 Radiation optimization: All CT scans at this facility use at least one of these dose optimization techniques: automated exposure control; mA and/or kV adjustment per patient size (includes targeted exams where dose is matched to clinical indication); or iterative reconstruction. COMPARISON: CT ABDOMEN PELVIS WO CON 07/19/2020 3:34 PM FINDINGS: Lungs: There are reticulonodular densities in the right lower lobe and lingula and to a lesser degree the peripheral left lower lobe with tree in bud configuration present in a few areas. The findings are suggestive of small airways disease. This is nonspecific in nature, with primary differential consideration being chronic atypical infection or chronic bronchiolitis. Connective tissue disorder such as rheumatoid disease or Sjogren syndrome could produce this appearance. Neoplastic nodules considered unlikely. Largest nodular component is 5 mm. The changes are moderately progressed from 07/19/2020. Multifocal nodular atelectasis in the right lower lobe and lingula also noted. Heart: Heart size upper limits of normal. Pacemaker leads partially visualized without gross complication or change. Mediastinal space: The visualized distal esophagus is largely contracted without gross abnormality. Liver: Normal contour. No mass lesions. No intrahepatic biliary ductal dilatation. Gallbladder and bile ducts: There are surgical clips present at the gallbladder fossa, however there is also a thin walled cystic structure measuring 3.3 x 2.7 x 2.5 cm present in the gallbladder fossa containing a 10 mm gallstone. If this represents the gallbladder with a small normal variant configuration, then it demonstrates no features of acute cholecystitis. If there is history of prior cholecystectomy then this is probably a small chronic biloma with retained stone. The appearance is unchanged. Correlate with operative history. Common bile duct is not significantly dilated for the patient's age, measuring 8.5 mm diameter. Pancreas: Mild pancreatic atrophy without acute abnormality. No pancreatic ductal dilatation. Spleen: Normal. No splenomegaly. Adrenal glands: Normal. No adrenal mass. Kidneys and ureters: No acute abnormalities. No hydronephrosis or hydroureter. No urinary tract stones are identified. Numerous bilateral phleboliths in the pelvis. Stomach and bowel: The stomach is largely contracted without gross abnormality. The small bowel is nondilated with no gross abnormality. Mild-moderate colonic diverticulosis which is most pronounced in the sigmoid colon. No focal changes of diverticulitis. There is mild long segment colonic wall thickening in the distal colon suspicious for an element of colitis. No perforation or abscess. Appendix: The appendix is not identified. No secondary signs of appendicitis. Intraperitoneal space: No free fluid or air. Arteries: Vasculature: Moderate atherosclerotic aortoiliac calcification without aneurysm. Lymph nodes: No adenopathy. Urinary bladder: Unremarkable as visualized. Reproductive: Prior hysterectomy. Bones/joints: No acute osseous abnormalities. Soft tissues: Mild soft tissue stranding/edema in the peripheral subcutaneous tissues suggesting volume overload or anasarca. IMPRESSION: 1. Distal colonic wall thickening suspicious for colitis with no evidence of perforation or a
[2022-02-24 17:18] LABS: Basophils # 0.1 K/mm3 (0-0.2); Basophils % 0.8 % (0.1-2.0); Eosinophils # 0.2 K/mm3 (0.0-0.4); Eosinophils % 2.7 % (0.1-12.0); Hematocrit 34.7 % (37.0-47.0); Hemoglobin 11.4 g/dL (12.2-16.2); Lymphocytes # 1.2 K/mm3 (0.7-4.5); Lymphocytes % 17.6 % (10-50); Mean Corpuscular HGB Conc 32.9 g/dL (31.8-35.4); Mean Corpuscular Hemoglobin 30.8 pg (27.0-31.2); Mean Corpuscular Volume 93.6 fl (81-99); Monocytes # 0.3 K/mm3 (0.1-1.0); Monocytes % 4.4 % (1.7-9.3); Neutrophils # 5.2 K/mm3 (1.8-7.8); Neutrophils % 74.5 % (37.0-80.0); Platelet Count 263 K/mm3 (142-424); Red Cell Distribution Width 12.8 % (11.5-17.5)
[2022-02-24 17:21] LABS: Chloride 96 mmol/L (98-107)
[2022-02-24 17:22] LABS: Sodium 133 mmol/L (136-145)
[2022-02-24 17:24] LABS: Alanine Aminotransferase 15 U/L (12-78); Albumin Level 4.4 g/dl (3.5-5.0); Albumin/Globulin Ratio 1.3 (1.1-1.8); Alkaline Phosphatase 92 U/L (38-126); Aspartate Amino Transferase 29 U/L (14-36); Bilirubin,Total 0.5 mg/dl (0.2-1.3); Blood Urea Nitrogen 11 mg/dl (7-17); Carbon Dioxide 31 mmol/L (22.0-30.0); Creatinine Clearance Estimated 42 mL/min (50-200); Estimated Glomerular Filt Rate 79 ml/min (>60); GFR (African American) 96 ML/MIN (>60); Globulin 3.3 g/dL (1.3-3.2); Lipase 189 U/L (23-300); Total Protein,Serum 7.7 g/dl (6.3-8.2)
[2022-02-24 17:25] LABS: Calcium 8.8 mg/dl (8.4-10.2); Glucose 97 mg/dl (74-100)
--- NOTE | 2022-02-24 17:53 | PC.NURSE ---
PT still drinking contrast.
--- NOTE | 2022-02-24 18:49 | PC.NURSE ---
PT finished oral contrast. Notified Rad
--- NOTE | 2022-02-24 18:49 | PC.NURSE ---
Advised pt she would be going for her CT scan in approx. 1 1/2hrs
[2022-02-24 19:47] LABS: Microscopic, Urine URINE MICROSCOPIC (MICROSCOPIC)
[2022-02-24 19:58] LABS: Appearance,Urine CLEAR (Clear); Bilirubin,Urine Negative (Negative); Blood, Urine 2+ (Negative); Color,Urine YELLOW (Yellow); Glucose,Urine (UA) Negative (Negative); Ketones,Urine Negative (Negative); Leukocyte Esterase,Urine Negative (Negative); Nitrate,Urine Negative (Negative); Protein,Urine Negative (Negative); Urobilinogen,Urine 0.2 EU/dl (0.2)
[2022-02-24 20:01] LABS: Squamous Epithelial Cell,Urine Occasional #/hpf (0-5); WBC,Urine Occasional #/hpf (0-3)
== END 2022-02-24 22:21 | disposition home or self-care (01) ==
PROVIDERS: Emergency Provider Emergency Medicine; PCP Internal Medicine Adolescent Medicine
DX: R19.7 Diarrhea, unspecified (principal); R11.2 Nausea with vomiting, unspecified; I11.0 Hypertensive heart disease with heart failure; I50.9 Heart failure, unspecified; I48.91 Unspecified atrial fibrillation; K21.9 Gastro-esophageal reflux disease without esophagitis; E78.5 Hyperlipidemia, unspecified; F41.9 Anxiety disorder, unspecified; Z79.1 Long term (current) use of non-steroidal anti-inflammatories (NSAID); Z79.01 Long term (current) use of anticoagulants; Z79.899 Other long term (current) drug therapy; Z88.0 Allergy status to penicillin; Z88.1 Allergy status to other antibiotic agents; Z88.2 Allergy status to sulfonamides; Z88.3 Allergy status to other anti-infective agents; Z88.5 Allergy status to narcotic agent; Z88.6 Allergy status to analgesic agent; Z88.8 Allergy status to other drugs, medicaments and biological substances; Z91.018 Allergy to other foods; Z91.041 Radiographic dye allergy status; Z95.0 Presence of cardiac pacemaker; Z80.9 Family history of malignant neoplasm, unspecified
CPT/HCPCS: 74176; 80053; 81001; 83690; 85025; 96365; 96374; 96375; 99284; J2405

== ENCOUNTER 2022-03-17 22:13 | Emergency (ER) | payer MEDICARE, OTHER, SELFPAY ==
[2022-03-17 22:08] VITALS: BP 149/84; PULSE 102; RESP 17; TEMP 36.9; O2SAT 98; BMI 22.0
--- NOTE | 2022-03-17 22:30 | CT_ITS ---
PROCEDURE INFORMATION: Exam: CT Abdomen And Pelvis Without Contrast Exam date and time: 03/17/2022 10:52 PM Age: 86 years old Clinical indication: Abdominal pain; Generalized; Prior surgery; Surgery date: 6+ months; Surgery type: Gb, hysterectomy, appendectomy; Patient HX: Nausea, abdomen pain, belching; Additional info: Abd pain TECHNIQUE: Imaging protocol: Computed tomography of the abdomen and pelvis without contrast. Radiation optimization: All CT scans at this facility use at least one of these dose optimization techniques: automated exposure control; mA and/or kV adjustment per patient size (includes targeted exams where dose is matched to clinical indication); or iterative reconstruction. COMPARISON: CT ABDOMEN PELVIS WO CON 02/24/2022 8:23 PM FINDINGS: Tubes, catheters and devices: Pacemaker noted. Lungs: Reticulonodular infiltrates are noted at both lung bases, not significantly changed from prior. There is basilar bronchial wall thickening. Wedge-shaped opacity in the periphery of the right lower lobe is again noted. Band of atelectasis in the lingula is unchanged. Heart: Normal heart size. Liver: Normal. No mass. Gallbladder and bile ducts: Cholelithiasis. No regional inflammatory change. There is mild prominence of the intra and extrahepatic biliary tree without high density stone. Biliary tree is more prominent than on the recent prior. Extrahepatic common duct measures 12 mm in diameter on today's exam, previously 9 mm. Pancreas: Normal. No ductal dilation. Spleen: Normal. No splenomegaly. Adrenal glands: Normal. No mass. Kidneys and ureters: No renal obstruction or inflammation on either side. Stomach and bowel: Decompressed stomach. Normal caliber small bowel. Diverticulosis is noted throughout the entire colon. No features of acute diverticulitis. Appendix: Vestigial appendix demonstrated. Intraperitoneal space: Unremarkable. No free air. No significant fluid collection. Vasculature: Mild aortoiliac calcific atherosclerosis without aneurysm. Lymph nodes: Unremarkable. No enlarged lymph nodes. Urinary bladder: Catheterized urinary bladder. Reproductive: Features of prior hysterectomy noted. No evidence of vaginal cuff or adnexal mass. Bones/joints: Unremarkable. No acute fracture. Soft tissues: Unremarkable. IMPRESSION: 1. There has been slight interval increase in extrahepatic biliary tree dilation but no high density stones are seen. Findings could reflect cholestasis. Distal radiolucent stone or distal common bile duct stricture cannot be excluded. MRCP may be helpful for further evaluation. 2. No other acute intra-abdominal abnormality is evident. 3. Unchanged reticulonodular infiltrates at both lung bases. 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
--- NOTE | 2022-03-17 22:31 | ECG_ITS ---
APPROVED REPORT Exam: Resting ECG HR:65 bpm ECG Measurements Heart Rate [address] 209 P 259 QRSd 165 QRS -71 QT 419 T 96 QTc 430 Conclusion ELECTRONIC ATRIAL PACEMAKER ELECTRONIC VENTRICULAR PACEMAKER ABNORMAL RHYTHM ECG UNCONFIRMED REPORT Electronically signed by : Niranjan Mccarty MD 03/20/2022 17:59:49
[2022-03-17 22:40] LABS: Alanine Aminotransferase 168 U/L (12-78); Albumin Level 4.7 g/dl (3.5-5.0); Albumin/Globulin Ratio 1.3 (1.1-1.8); Alkaline Phosphatase 143 U/L (38-126); Amylase 52 U/L (30-110); Anion Gap 11.8 mEq/L (5-15); Bilirubin,Total 1.3 mg/dl (0.2-1.3); Blood Urea Nitrogen 12 mg/dl (7-17); Calcium 9.3 mg/dl (8.4-10.2); Carbon Dioxide 33 mmol/L (22.0-30.0); Chloride 94 mmol/L (98-107); Creatinine Clearance Estimated 41 mL/min (50-200); Estimated Glomerular Filt Rate 79 ml/min (>60); GFR (African American) 96 ML/MIN (>60); Globulin 3.5 g/dL (1.3-3.2); Glucose 148 mg/dl (74-100); Lipase 326 U/L (23-300); Potassium 3.8 mmoL/L (3.5-5.1); Sodium 135 mmol/L (136-145); Total Protein,Serum 8.2 g/dl (6.3-8.2)
[2022-03-17 22:45] LABS: C-Reactive Protein 1.9 mg/L (0-4)
[2022-03-17 22:46] LABS: Basophils # 0.2 K/mm3 (0-0.2); Basophils % 2.2 % (0.1-2.0); Eosinophils # 0.1 K/mm3 (0.0-0.4); Eosinophils % 0.9 % (0.1-12.0); Hematocrit 38.1 % (37.0-47.0); Lymphocytes # 0.6 K/mm3 (0.7-4.5); Lymphocytes % 6.5 % (10-50); Mean Corpuscular HGB Conc 31.4 g/dL (31.8-35.4); Mean Corpuscular Hemoglobin 30.5 pg (27.0-31.2); Mean Corpuscular Volume 97.1 fl (81-99); Mean Platelet Volume 8.4 fl (7.4-10.4); Monocytes # 0.3 K/mm3 (0.1-1.0); Monocytes % 3.4 % (1.7-9.3); Neutrophils # 7.4 K/mm3 (1.8-7.8); Neutrophils % 86.9 % (37.0-80.0); Platelet Count 245 K/mm3 (142-424); Red Blood Count 3.92 M/mm3 (4.20-5.40); Red Cell Distribution Width 13.3 % (11.5-17.5); White Blood Count 8.6 K/mm3 (4.8-10.8)
[2022-03-17 22:47] LABS: Aspartate Amino Transferase 598 U/L (14-36)
[2022-03-17 22:48] LABS: Coronavirus 19, PCR Not Detected (NotDetected); Influenza A, PCR Not Detected (NotDetected); Influenza B, PCR Not Detected (NotDetected)
[2022-03-17 22:50] LABS: Microscopic, Urine URINE MICROSCOPIC (MICROSCOPIC)
[2022-03-17 22:50] LABS: MANUAL DIFFERENTIAL MANUAL DIFFERENTIAL (MANUAL DIFF)
[2022-03-17 22:55] LABS: Appearance,Urine CLEAR (Clear); Bilirubin,Urine Negative (Negative); Blood, Urine 2+ (Negative); Color,Urine YELLOW (Yellow); Glucose,Urine (UA) Negative (Negative); Ketones,Urine Negative (Negative); Leukocyte Esterase,Urine Negative (Negative); Nitrate,Urine Negative (Negative); PH,Urine 6.5 (5.0-8.5); Protein,Urine Negative (Negative); Urobilinogen,Urine 0.2 EU/dl (0.2)
[2022-03-17 22:59] LABS: Troponin I < 0.01 ng/ml (0.00-0.034)
[2022-03-17 23:06] LABS: Lymphocytes % 3 % (10-50); Monocytes % 1 % (2-9); Neutrophils % 88 % (42-76); Platelet Estimate Normal; Total Cells Counted 100
[2022-03-17 23:07] LABS: Hypochromasia 1+; Rouleaux 2+
[2022-03-17 23:13] LABS: Erythrocyte Sedimentation Rate 35 mm/hr (0-30)
[2022-03-17 23:32] LABS: INR 6.01 (0.9-1.1); Prothrombin Time 59.5 seconds (10.1-12.5)
--- NOTE | 2022-03-17 23:40 | PC.NURSE ---
Dr. Golden aware of PT and INR results
[2022-03-18] VITALS (14 sets, daily range): BP systolic 115–149; BP diastolic 54–109; PULSE 59–88; RESP 11–21; TEMP 36.7; O2SAT 98–100
--- NOTE | 2022-03-18 00:48 | PC.NURSE ---
patient states BP cuff hurts her and doesn't want to wear it
--- NOTE | 2022-03-18 00:49 | HMH.EDNVD ---
ED Disposition Clinical Impression: Biloma, Prolonged INR Disposition: Home, Self-Care Condition on Discharge: Good Instructions: DI for Acute Abdominal Pain Additional Instructions: see pcp in am Referrals: Jos Miller MD [Primary Care Provider] - - Critical Care Critical Care Time: No Attestation: On 03/17/22, the high probability of a clinically significant, sudden or life threatening deterioration of the following system(s) required my full and direct attention, intervention and personal management. The time I documented below is in addition to time spent performing reported procedures but includes the following listed in this critical care notation. Medical Decision Making - Medical Records Medical records reviewed: Yes: I reviewed the patient's medical records. - Rashel Inquiry Pt receiving controlled substance: No Vital Signs: 03/17/22 22:08 03/18/22 01:22 03/18/22 01:30 Temperature 98.5 F Temperature Source Oral Pulse Rate 62 60 Pulse Rate [Left Radial] 102 H Respiratory Rate 17 14 12 Blood Pressure 145/109 H 148/70 H Blood Pressure [Right Arm] 149/84 H Blood Pressure Mean [Right Arm] 105 Blood Pressure Source [Right Arm] Automatic Cuff Blood Pressure Position [Right Arm] Sitting 02 Sat by Pulse Oximetry 98 100 99 Oxygen Delivery Method Room Air Room Air Room Air 03/18/22 02:00 03/18/22 02:45 03/18/22 03:01 Temperature Temperature Source Pulse Rate 60 60 59 L Pulse Rate [Left Radial] Respiratory Rate 17 15 14 Blood Pressure 149/72 H 139/71 132/58 L Blood Pressure [Right Arm] Blood Pressure Mean [Right Arm] Blood Pressure Source [Right Arm] Blood Pressure Position [Right Arm] 02 Sat by Pulse Oximetry 99 99 99 Oxygen Delivery Method Room Air Room Air Room Air 03/18/22 03:15 03/18/22 04:00 03/18/22 04:30 Temperature Temperature Source Pulse Rate 60 60 60 Pulse Rate [Left Radial] Respiratory Rate 11 L 21 17 Blood Pressure 126/56 L 122/57 L 124/58 L Blood Pressure [Right Arm] Blood Pressure Mean [Right Arm] Blood Pressure Source [Right Arm] Blood Pressure Position [Right Arm] 02 Sat by Pulse Oximetry 100 99 99 Oxygen Delivery Method Room Air 03/18/22 05:00 03/18/22 05:30 Temperature Temperature Source Pulse Rate 60 60 Pulse Rate [Left Radial] Respiratory Rate 15 16 Blood Pressure 129/60 122/58 L Blood Pressure [Right Arm] Blood Pressure Mean [Right Arm] Blood Pressure Source [Right Arm] Blood Pressure Position [Right Arm] 02 Sat by Pulse Oximetry 99 98 Oxygen Delivery Method - Lab Data Lab results reviewed: Yes: I reviewed the patient's lab results. Lab Results 03/17/22 22:12: WBC 8.6, RBC 3.92 L, Hgb 12.0 L, Hct 38.1, MCV 97.1, MCH 30.5, MCHC 31.4 L, RDW 13.3, Plt Count 245, MPV 8.4, Neut % (Auto) 86.9 H, Lymph % (Auto) 6.5 L, Carbon % (Auto) 3.4, Eos % (Auto) 0.9, Baso % (Auto) 2.2 H, Neut # (Auto) 7.4, Lymph # (Auto) 0.6 L, Carbon # (Auto) 0.3, Eos # (Auto) 0.1, Baso # (Auto) 0.2, Total Counted 100, Neutrophils % (Manual) 88 H, Band Neutrophils % 8.0, Lymphocytes % (Manual) 3 L, Monocytes % (Manual) 1 L, Platelet Estimate Normal, Hypochromasia 1+, Rouleaux 2+ 03/17/22 22:12: ESR 35 H 03/17/22 22:12: Sodium 135 L, Potassium 3.8, Chloride 94 L, Carbon Dioxide 33 H, Anion Gap 11.8, BUN 12, Creatinine 0.70, Estimated Creat Clear 41, Estimated GFR 79, Est GFR ( Amer) 96, Glucose 148 H, Calcium 9.3, Total Bilirubin 1.3, AST 598 H*, ALT 168 H, Alkaline Phosphatase 143 H, C-Reactive Protein 1.9, Total Protein 8.2, Albumin 4.7, Globulin 3.5 H, Albumin/Globulin Ratio 1.3, Amylase 52, Lipase 326 H 03/17/22 22:12: Troponin I < 0.01 03/17/22 22:12: PT 59.5 H, INR 6.01 H 03/17/22 22:12: Digoxin 0.80 03/17/22 22:41: SARS-CoV-2 (PCR) Not detected, Influenza A Untype (PCR) Not detected, Influenza Type B (PCR) Not detected 03/17/22 22:41: Urine Color Yellow, Urine Appearance Clear, Urine pH 6.5, Ur Specific G
--- NOTE | 2022-03-18 00:50 | XR_ITS ---
PROCEDURE INFORMATION: Exam: XR Chest Exam date and time: 03/18/2022 12:53 AM Age: 86 years old Clinical indication: Other: Nausea, vomiting, abd pain; Additional info: N/v pain TECHNIQUE: Imaging protocol: XR of the chest. Views: 1 view. COMPARISON: CT CHEST WO CON 01/08/2022 8:36 AM FINDINGS: Tubes, catheters and devices: Dual lead pacemaker is in expected position. Lungs: Hyperinflated lungs. Basilar reticular opacities appear chronic. Pleural spaces: Unremarkable. No pleural effusion. No pneumothorax. Heart/Mediastinum: Unremarkable. No cardiomegaly. Vasculature: Calcified aortic arch. Bones/joints: Right greater than left shoulder arthropathy. IMPRESSION: Hyperinflated lungs with stable chronic basilar reticular opacities.
--- NOTE | 2022-03-18 01:06 | PC.NURSE ---
scallop dredger surgeon paged for Dr. Golden
--- NOTE | 2022-03-18 01:08 | PC.NURSE ---
Dr. Hutchinson on phone with Dr. Golden
--- NOTE | 2022-03-18 02:07 | PC.NURSE ---
PT UPDATED WITH PLAN OF CARE. PT AWARE OF PLAN FOR FURTHER LABS. NO FURTHER COMPLAINTS AT THIS TIME. WCM.
[2022-03-18 02:18] LABS: Troponin I 0.02 ng/ml (0.00-0.034)
[2022-03-18 07:31] LABS: Alanine Aminotransferase 233 U/L (12-78); Albumin Level 3.7 g/dl (3.5-5.0); Alkaline Phosphatase 132 U/L (38-126); Aspartate Amino Transferase 594 U/L (14-36); Bilirubin,Direct 1.6 mg/dl (0.0-0.4); Bilirubin,Indirect 0.8 mg/dL (0.0-0.9); Bilirubin,Total 2.4 mg/dl (0.2-1.3); Bilirubin,Unconjugated 0.8 mg/dL (0.0-1.1); Lipase 155 U/L (23-300); Total Protein,Serum 6.2 g/dl (6.3-8.2)
[2022-03-18 07:46] LABS: Prothrombin Time 60.1 seconds (10.1-12.5)
[2022-03-18 07:47] LABS: INR 6.08 (0.9-1.1)
--- NOTE | 2022-03-18 07:59 | PC.NURSE ---
Received report from PAPITO Guthrie. Assessed pt at this time. No new needs
--- NOTE | 2022-03-18 09:31 | PC.NURSE ---
James at bedside speaking with patient
--- NOTE | 2022-03-18 09:55 | HMH.PHAINT ---
ANTICOAGULATION-INR WAS 6.08 THIS AM. HAVING PATIENT HOLD DOSE UNTIL FOLLOW UP ON 03/20/22 WITH AND ANTICOAG CLINIC. PATIENT NORMALLY TAKE 3.75 MG ON SUN AND 7.5 MG ON FRI/FRI/FRI/FRI/FRI/SAT BUT SUSPECT WITH N/V HER EATING HABITS HAVE CHANGED.
--- NOTE | 2022-03-18 10:13 | PC.NURSE ---
Calling pt's per pt's request to get ride for pt.
--- NOTE | 2022-03-18 10:48 | PC.NURSE ---
Pt is ready d/c at this time. She is waiting on her ride to arrive
[2022-04-13 17:14] LABS: Hep A Ab, IgM NEGATIVE; Hepatitis B Core Antibody IgM NEGATIVE; Hepatitis B Surface Antigen NEGATIVE; Hepatitis C Antibody 0.2
== END 2022-03-18 11:50 | disposition home or self-care (01) ==
PROVIDERS: Emergency Provider Emergency Medicine; PCP Internal Medicine Adolescent Medicine
DX: R11.0 Nausea (principal); I48.0 Paroxysmal atrial fibrillation; D68.9 Coagulation defect, unspecified; K21.9 Gastro-esophageal reflux disease without esophagitis; I10 Essential (primary) hypertension; E78.5 Hyperlipidemia, unspecified; F41.9 Anxiety disorder, unspecified; Z88.6 Allergy status to analgesic agent; Z88.8 Allergy status to other drugs, medicaments and biological substances; Z88.0 Allergy status to penicillin; Z79.899 Other long term (current) drug therapy
CPT/HCPCS: 51702; 71045; 74176; 80053; 80074; 80076; 80162; 81001; 82150; 83690; 84484; 85007; 85025; 85610; 85651; 86140; 93005; 96360; 99284; C9803; U0003; U0005

== ENCOUNTER 2022-04-02 12:35 | Outpatient (CLI) | payer MEDICARE, OTHER, SELFPAY ==
[2022-04-02 14:22] LABS: PHA INR Fingerstick 1.3 (0.9-1.1)
== END 2022-04-02 14:25 | disposition home or self-care (01) ==
PROVIDERS: PCP Internal Medicine Adolescent Medicine; Visit Provider Internal Medicine Adolescent Medicine
DX: Z51.81 Encounter for therapeutic drug level monitoring (principal); Z79.01 Long term (current) use of anticoagulants; I48.91 Unspecified atrial fibrillation
CPT/HCPCS: 85610; 99211; G0463

== ENCOUNTER 2022-04-23 10:27 | Outpatient (CLI) | payer MEDICARE, OTHER, SELFPAY ==
[2022-04-23 15:33] LABS: PHA INR Fingerstick 2.1 (0.9-1.1)
== END 2022-04-23 15:39 | disposition home or self-care (01) ==
LOC: ACC 10:31
PROVIDERS: PCP Internal Medicine Adolescent Medicine; Visit Provider Internal Medicine Adolescent Medicine
DX: Z51.81 Encounter for therapeutic drug level monitoring (principal); Z79.01 Long term (current) use of anticoagulants; I48.91 Unspecified atrial fibrillation
CPT/HCPCS: 85610; 99211; G0463

== ENCOUNTER 2022-05-21 11:05 | Outpatient (CLI) | payer MEDICARE, OTHER, SELFPAY ==
[2022-05-21 15:56] LABS: PHA INR Fingerstick 2.3 (0.9-1.1)
== END 2022-05-21 15:59 | disposition home or self-care (01) ==
PROVIDERS: PCP Internal Medicine Adolescent Medicine; Visit Provider Internal Medicine Adolescent Medicine
DX: Z51.81 Encounter for therapeutic drug level monitoring (principal); Z79.01 Long term (current) use of anticoagulants; I48.91 Unspecified atrial fibrillation
CPT/HCPCS: 85610; 99211; G0463

== ENCOUNTER 2022-07-04 22:45 | Emergency (ER) | payer MEDICARE, OTHER, SELFPAY ==
[2022-07-04 22:36] VITALS: BP 179/98; PULSE 75; RESP 18; TEMP 36.7; O2SAT 99; BMI 21.9
--- NOTE | 2022-07-04 22:44 | HMH.EDGENADL ---
ED Disposition Clinical Impression: Polymyalgia Disposition: Home, Self-Care Condition on Discharge: Good Instructions: DI for Muscle Weakness, DI for Chronic Pain -- Adult Time of Disposition: 00:50 - Critical Care Critical Care Time: No Attestation: On , the high probability of a clinically significant, sudden or life threatening deterioration of the following system(s) required my full and direct attention, intervention and personal management. The time I documented below is in addition to time spent performing reported procedures but includes the following listed in this critical care notation. Medical Decision Making - Medical Records Medical records reviewed: Yes: I reviewed the patient's medical records. - Rashel Inquiry Pt receiving controlled substance: No Vital Signs: 07/04/22 22:36 Temperature 98.1 F Temperature Source Oral Pulse Rate [Right] 75 Respiratory Rate 18 Blood Pressure [Right Arm] 179/98 H Blood Pressure Mean [Right Arm] 125 02 Sat by Pulse Oximetry 99 - Lab Data Lab Results 07/04/22 23:08: WBC 6.7, RBC 3.56 L, Hgb 10.9 L, Hct 33.5 L, MCV 94.1, MCH 30.5, MCHC 32.4, RDW 13.3, Plt Count 231, MPV 8.0, Neut % (Auto) 68.2, Lymph % (Auto) 21.2, [place] % (Auto) 6.7, Eos % (Auto) 3.0, Baso % (Auto) 0.9, Neut # (Auto) 4.6, Lymph # (Auto) 1.4, [place] # (Auto) 0.5, Eos # (Auto) 0.2, Baso # (Auto) 0.1, ESR 52 H 07/04/22 23:08: Sodium 131 L, Potassium 4.2, Chloride 97 L, Carbon Dioxide 27, Anion Gap 11.2, BUN 11, Creatinine 0.60, Estimated Creat Clear 40, Estimated GFR 95, Est GFR ( Amer) 115, Glucose 119 H, Calcium 9.4, Total Bilirubin < 0.1 L, AST 31, ALT 16, Alkaline Phosphatase 104, C-Reactive Protein 1.9, Total Protein 7.4, Albumin 4.3, Globulin 3.1, Albumin/Globulin Ratio 1.4 07/05/22 00:15: Urine Color Yellow, Urine Appearance Clear, Urine pH 8.0, Ur Specific [place] 1.010, Urine Protein Negative, Urine Glucose (UA) Negative, Urine Ketones Negative, Urine Blood 2+, Urine Nitrate Negative, Urine Bilirubin Negative, Urine Urobilinogen 0.2, Ur Leukocyte Esterase Trace, Urine RBC 10-20, Urine WBC 3-5, Ur Squamous Epith Cells 3-5, Urine Bacteria 1+ Result diagrams: 07/04/22 23:08 07/04/22 23:08 Medical Decision Narrative: In summary this is an 86-year-old female presenting to the emergency department with bilateral leg weakness and arm weakness. Patient clinically stable on arrival. Vital signs within normal limits. Her symptoms seem to be in a stocking glove distribution. Neurologic exam is nonfocal. Will obtain screening laboratory work including CBC, CMP, ESR, CRP, urinalysis Initial laboratory results are reassuring. No leukocytosis. No anemia. Urinalysis shows no signs of urinary tract infection. On reassessment, patient says that her symptoms are much improved. She continues to have occasional [id number] pain. Located on both hands and both feet. She also feels like she is having a fibromyalgia flare. Overall presentation is most concerning for a rheumatologic or inflammatory process. Patient counseled to monitor symptoms closely. Take anti-inflammatories. Follow-up with PCP. Given return precautions. Stable for discharge. General Adult HPI - General Chief complaint: Weakness Stated complaint: weakness Time Seen by Provider: 07/04/22 22:44 Mode of Arrival: EMS Limitations: No Limitations Description of Symptoms (Recalled from ER Triage Doc. by RN): pt states was standing in kitchen and suddenly had bilateral feet numbness up to knees and bilateral hand numbness. pt has hx of back problems and denies any trauma , - History of Present Illness HPI narrative: 86-year-old male presenting to the emergency department with numbness and weakness to her legs and hands. Incident happened just prior to arrival. She had been standing in her kitchen, for approximately 10 minutes. When she went to walk felt like both of her legs were heavy. Her feet were somewhat numb and
[2022-07-04 23:22] LABS: Basophils # 0.1 K/mm3 (0-0.2); Basophils % 0.9 % (0.1-2.0); Chloride 97 mmol/L (98-107); Eosinophils # 0.2 K/mm3 (0.0-0.4); Hematocrit 33.5 % (37.0-47.0); Hemoglobin 10.9 g/dL (12.2-16.2); Lymphocytes # 1.4 K/mm3 (0.7-4.5); Lymphocytes % 21.2 % (10-50); Mean Corpuscular HGB Conc 32.4 g/dL (31.8-35.4); Mean Corpuscular Hemoglobin 30.5 pg (27.0-31.2); Mean Corpuscular Volume 94.1 fl (81-99); Monocytes # 0.5 K/mm3 (0.1-1.0); Monocytes % 6.7 % (1.7-9.3); Neutrophils # 4.6 K/mm3 (1.8-7.8); Neutrophils % 68.2 % (37.0-80.0); Platelet Count 231 K/mm3 (142-424); Red Blood Count 3.56 M/mm3 (4.20-5.40); Red Cell Distribution Width 13.3 % (11.5-17.5); Sodium 131 mmol/L (136-145); White Blood Count 6.7 K/mm3 (4.8-10.8)
[2022-07-04 23:23] LABS: Potassium 4.2 mmoL/L (3.5-5.1)
[2022-07-04 23:25] LABS: Alanine Aminotransferase 16 U/L (12-78); Alkaline Phosphatase 104 U/L (38-126); Aspartate Amino Transferase 31 U/L (14-36); Blood Urea Nitrogen 11 mg/dl (7-17); Creatinine Clearance Estimated 40 mL/min (50-200); Estimated Glomerular Filt Rate 95 ml/min (>60); GFR (African American) 115 ML/MIN (>60)
[2022-07-04 23:26] LABS: Albumin Level 4.3 g/dl (3.5-5.0); Albumin/Globulin Ratio 1.4 (1.1-1.8); Anion Gap 11.2 mEq/L (5-15); Calcium 9.4 mg/dl (8.4-10.2); Carbon Dioxide 27 mmol/L (22.0-30.0); Globulin 3.1 g/dL (1.3-3.2); Glucose 119 mg/dl (74-100); Total Protein,Serum 7.4 g/dl (6.3-8.2)
[2022-07-04 23:27] LABS: Bilirubin,Total < 0.1 mg/dl (0.2-1.3)
[2022-07-04 23:31] LABS: C-Reactive Protein 1.9 mg/L (0-4)
[2022-07-04 23:56] LABS: Erythrocyte Sedimentation Rate 52 mm/hr (0-30)
[2022-07-05 00:19] LABS: Microscopic, Urine URINE MICROSCOPIC (MICROSCOPIC)
[2022-07-05 00:25] LABS: Appearance,Urine CLEAR (Clear); Bilirubin,Urine Negative (Negative); Blood, Urine 2+ (Negative); Color,Urine YELLOW (Yellow); Glucose,Urine (UA) Negative (Negative); Ketones,Urine Negative (Negative); Leukocyte Esterase,Urine TRACE (Negative); Nitrate,Urine Negative (Negative); Protein,Urine Negative (Negative); Urobilinogen,Urine 0.2 EU/dl (0.2)
[2022-07-05 00:43] LABS: Bacteria,Urine 1+ /lpf
[2022-07-05 03:07] VITALS: BP 155/70; PULSE 78; RESP 18; TEMP 36.6; O2SAT 98
== END 2022-07-05 03:22 | disposition home or self-care (01) ==
PROVIDERS: Emergency Provider Emergency Medicine
DX: R53.1 Weakness (principal); R20.2 Paresthesia of skin; M35.3 Polymyalgia rheumatica; I11.0 Hypertensive heart disease with heart failure; I50.9 Heart failure, unspecified; I25.10 Atherosclerotic heart disease of native coronary artery without angina pectoris; K21.9 Gastro-esophageal reflux disease without esophagitis; E78.5 Hyperlipidemia, unspecified; M79.7 Fibromyalgia; M19.90 Unspecified osteoarthritis, unspecified site; L98.499 Non-pressure chronic ulcer of skin of other sites with unspecified severity; J44.9 Chronic obstructive pulmonary disease, unspecified; F41.9 Anxiety disorder, unspecified; Z79.01 Long term (current) use of anticoagulants; Z79.1 Long term (current) use of non-steroidal anti-inflammatories (NSAID); Z79.899 Other long term (current) drug therapy; Z88.0 Allergy status to penicillin; Z88.1 Allergy status to other antibiotic agents; Z88.3 Allergy status to other anti-infective agents; Z88.5 Allergy status to narcotic agent; Z88.6 Allergy status to analgesic agent; Z88.8 Allergy status to other drugs, medicaments and biological substances; Z91.041 Radiographic dye allergy status; Z91.018 Allergy to other foods; Z95.0 Presence of cardiac pacemaker; Z80.9 Family history of malignant neoplasm, unspecified
CPT/HCPCS: 36415; 80053; 81001; 85025; 85651; 86140; 99283

== ENCOUNTER 2022-07-09 10:59 | Outpatient (CLI) | payer MEDICARE, OTHER, SELFPAY ==
[2022-07-09 12:20] LABS: PHA INR Fingerstick 1.6 (0.9-1.1)
== END 2022-07-09 12:23 | disposition home or self-care (01) ==
LOC: ACC 11:00
PROVIDERS: PCP Internal Medicine Adolescent Medicine; Visit Provider Internal Medicine Adolescent Medicine
DX: Z51.81 Encounter for therapeutic drug level monitoring (principal); Z79.01 Long term (current) use of anticoagulants; I48.91 Unspecified atrial fibrillation
CPT/HCPCS: 85610; 99211; G0463

== ENCOUNTER 2022-07-30 10:23 | Outpatient (CLI) | payer MEDICARE, OTHER, SELFPAY ==
[2022-07-30 14:29] LABS: PHA INR Fingerstick 2.5 (0.9-1.1)
== END 2022-07-30 14:31 ==
LOC: ACC 10:24
PROVIDERS: PCP Internal Medicine Adolescent Medicine; Visit Provider Internal Medicine Adolescent Medicine
DX: Z51.81 Encounter for therapeutic drug level monitoring (principal); Z79.01 Long term (current) use of anticoagulants; I48.91 Unspecified atrial fibrillation
CPT/HCPCS: 85610; 99211; G0463

== ENCOUNTER 2022-09-10 10:27 | Outpatient (CLI) | payer MEDICARE, OTHER, SELFPAY ==
[2022-09-10 10:55] LABS: PHA INR Fingerstick 1.9 (0.9-1.1)
== END 2022-09-10 10:57 ==
LOC: ACC 10:28
PROVIDERS: PCP Internal Medicine Adolescent Medicine; Visit Provider Internal Medicine Adolescent Medicine
DX: Z51.81 Encounter for therapeutic drug level monitoring (principal); Z79.01 Long term (current) use of anticoagulants; I48.91 Unspecified atrial fibrillation
CPT/HCPCS: 85610; 99211; G0463

== ENCOUNTER 2022-10-08 11:01 | Outpatient (CLI) | payer MEDICARE, OTHER, SELFPAY | END 2022-10-08 11:28 | PROVIDERS: PCP Internal Medicine Adolescent Medicine; Visit Provider Orthopaedic Surgery | DX: Z51.81 Encounter for therapeutic drug level monitoring (principal); Z79.01 Long term (current) use of anticoagulants; I48.91 Unspecified atrial fibrillation | CPT/HCPCS: 85610; 99211; G0463 ==

== ENCOUNTER 2022-11-05 10:42 | Outpatient (CLI) | payer MEDICARE, OTHER, SELFPAY | END 2022-11-05 16:15 | PROVIDERS: PCP Internal Medicine Adolescent Medicine; Visit Provider Internal Medicine Adolescent Medicine | DX: Z51.81 Encounter for therapeutic drug level monitoring (principal); Z79.01 Long term (current) use of anticoagulants; I48.91 Unspecified atrial fibrillation | CPT/HCPCS: 85610; 99211; G0463 ==

== ENCOUNTER 2022-12-25 11:38 | Outpatient (CLI) | payer MEDICARE, OTHER, SELFPAY ==
[2022-12-25 14:59] LABS: PHA INR Fingerstick 1.9 (0.9-1.1)
== END 2022-12-25 15:37 ==
LOC: ACC 11:39
PROVIDERS: PCP Internal Medicine Adolescent Medicine; Visit Provider Internal Medicine Adolescent Medicine
DX: Z51.81 Encounter for therapeutic drug level monitoring (principal); Z79.01 Long term (current) use of anticoagulants; I48.91 Unspecified atrial fibrillation
CPT/HCPCS: 85610; 99211; G0463

== ENCOUNTER 2023-02-05 11:16 | Outpatient (CLI) | payer MEDICARE, OTHER, SELFPAY ==
[2023-02-05 13:53] LABS: PHA INR Fingerstick 1.6 (0.9-1.1)
== END 2023-02-05 13:55 ==
LOC: ACC 11:17
PROVIDERS: PCP Internal Medicine Adolescent Medicine; Visit Provider Internal Medicine Adolescent Medicine
DX: Z51.81 Encounter for therapeutic drug level monitoring (principal); Z79.01 Long term (current) use of anticoagulants; I48.91 Unspecified atrial fibrillation
CPT/HCPCS: 85610; 99211; G0463

== ENCOUNTER 2023-03-12 11:22 | Outpatient (CLI) | payer MEDICARE, OTHER, SELFPAY ==
[2023-03-12 12:32] LABS: PHA INR Fingerstick 1.6 (0.9-1.1)
== END 2023-03-12 14:03 ==
LOC: ACC 11:23
PROVIDERS: PCP Internal Medicine Adolescent Medicine; Visit Provider Internal Medicine Adolescent Medicine
DX: Z51.81 Encounter for therapeutic drug level monitoring (principal); Z79.01 Long term (current) use of anticoagulants; I48.91 Unspecified atrial fibrillation
CPT/HCPCS: 85610; 99211; G0463

== ENCOUNTER 2023-04-16 10:34 | Outpatient (CLI) | payer MEDICARE, OTHER, SELFPAY ==
[2023-04-16 13:46] LABS: PHA INR Fingerstick 2.4 (0.9-1.1)
== END 2023-04-16 14:08 ==
LOC: ACC 10:35
PROVIDERS: PCP Internal Medicine Adolescent Medicine; Visit Provider Internal Medicine Adolescent Medicine
DX: Z51.81 Encounter for therapeutic drug level monitoring (principal); Z79.01 Long term (current) use of anticoagulants; I48.91 Unspecified atrial fibrillation
CPT/HCPCS: 85610; 99211; G0463

== ENCOUNTER 2023-05-28 11:10 | Outpatient (CLI) | payer MEDICARE, OTHER, SELFPAY | END 2023-05-28 11:40 | LOC: ACC 11:11 | PROVIDERS: PCP Internal Medicine Adolescent Medicine; Visit Provider Internal Medicine Adolescent Medicine | DX: Z79.01 Long term (current) use of anticoagulants (principal); Z51.81 Encounter for therapeutic drug level monitoring; I48.91 Unspecified atrial fibrillation | CPT/HCPCS: 85610; 99211; G0463 ==

== ENCOUNTER 2023-07-02 10:57 | Outpatient (CLI) | payer MEDICARE, OTHER, SELFPAY ==
[2023-07-02 13:34] LABS: PHA INR Fingerstick 2.9 (0.9-1.1)
== END 2023-07-02 13:36 ==
LOC: ACC 10:58
PROVIDERS: PCP Internal Medicine Adolescent Medicine; Visit Provider Internal Medicine Adolescent Medicine
DX: Z79.01 Long term (current) use of anticoagulants (principal); Z51.81 Encounter for therapeutic drug level monitoring; I48.91 Unspecified atrial fibrillation
CPT/HCPCS: 85610; 99211; G0463

== ENCOUNTER 2023-08-13 10:34 | Outpatient (CLI) | payer MEDICARE, OTHER, SELFPAY ==
[2023-08-13 11:41] LABS: PHA INR Fingerstick 2.8 (0.9-1.1)
== END 2023-08-13 11:51 ==
LOC: ACC 10:35
PROVIDERS: PCP Internal Medicine Adolescent Medicine; Visit Provider Internal Medicine Adolescent Medicine
DX: Z79.01 Long term (current) use of anticoagulants (principal); Z51.81 Encounter for therapeutic drug level monitoring; I48.91 Unspecified atrial fibrillation
CPT/HCPCS: 85610; 99211; G0463

== ENCOUNTER → 2023-09-11 10:42 | Outpatient (CLI) | payer MEDICARE, OTHER, SELFPAY ==
--- NOTE | 2023-09-11 | CA_ITS ---
APPROVED REPORT EXAM: Comprehensive 2D, Doppler, and color-flow Echocardiogram Parts Sales Representative: Camille Wilkerson RVT Ht: 5 ft 7 in Wt: 170lbs BSA: 1.89 BP: 128/72 mmHg Indications: MV INSUFF,PACER,HOME 02 TDS-PT'S CHEST IS VERY TENDER 2D Dimensions LVOT 1.94 cm (M/F) 1.5-2.5 LA Volume 98.00 mL LA Volume Index 51.85 mL/m2 (M/F) 16-34 M-Mode Dimensions RVDd 1.96 cm (0.9-2.6) LA Diam 3.99 cm (1.9-4.0) LVDd 4.86 cm (3.5-5.7) Ao Diam 3.14 cm (2.0-3.7) LVDs 3.05 cm (3.5-5.7) IVSd 1.00 cm (0.6-1.1) PWd 0.90 cm (0.6-1.1) EF (Teich) 67.10% FS 37.20% EDV (Teich) 110.70 mL TAPSE 3.05 (<1.7) ESV (Teich) 36.40 mL LV Diastology E Decel Time 203.00 (160-240 msec) E/A Ratio 3.0 MED E' 12.20 (< 7 cm/sec) E'/MED E' Ratio 7.11 (>14) LAT E' 10.20 (<10 cm/sec) E/LAT E' Ratio 8.50 (>14) Aortic Valve LVOT Max 76.00 (70-110 cm/s) LVOT VTI 15.10 cm AoV Peak Jordin. 143.00 (50-130 cm/s) AI PHT 1189.00 ms AO Peak GR. 8.20 mmHg AO Mean GR. 4.20 (<5 mmHg) AO VTI 27.47 (18-25 cm) VENKATESH (VTI) 1.62 (2.5-4.5 cm2) Mitral Valve MV E Max Jordin. 87.00 (40-130 cm/s) MV A Velocity 29.00 (40-130 cm/s) E/A Ratio 3.00 MV Decel. Time 203.00 (160-240 ms) MV Mean Gr. 1.20 (<2mmHg) MV PHT 60.00 ms Pulmonary Valve PV Peak Velocity 75.00 (50-150 cm/s) Tricuspid Valve TR P. Velocity 324.00 cm/s RAP Estimate 10.00 mmHg RVSP 51.90 mmHg Left Ventricle The left ventricle is normal size. The left ventricular systolic function is mildly reduced. There is normal left ventricular wall thickness. There is mild global hypokinesis present. Grade 3 diastolic dysfunction is present. LVEF is 45-50%. Right Ventricle Right ventricle is mildly dilated. The right ventricular systolic function is normal. A device lead is present in the right ventricle. Atria Left atrium is severely dilated. Right atrium is severely dilated. There is no Doppler evidence of interatrial shunt. Aortic Valve The aortic valve is mildly thickened. There is no aortic valvular stenosis. Mild aortic regurgitation. Mitral Valve The mitral valve is mildly thickened. No evidence of mitral valve stenosis. Mild mitral regurgitation. Tricuspid Valve The tricuspid valve leaflets are thin and pliable. Moderate tricuspid regurgitation. RVSP is 50-55 mmHg. Pulmonic Valve The pulmonary valve is normal in structure. Mild pulmonic regurgitation. Great Vessels The aortic root is normal in size. The ascending aorta is normal in size. IVC is dilated, but collapses >50% with inspiration. RVSP is estimated at 8 mmHg. Pericardium Trivial pericardial effusion. Other Information Study Quality: Fair Conclusion Mild reduction in LV systolic function (LVEF 45-50%). Mild RV dilation. Severe biatrial dilation. Mild MR, mild AI, mild AK. Moderate TR. Elevated RVSP 50-55 mmHg. Trivial pericardial effusion. Electronically signed by : Carolina Graham MD 09/13/2023 21:49:33
== END ==
PROVIDERS: PCP Internal Medicine Adolescent Medicine; Visit Provider Internal Medicine Cardiovascular Disease
DX: I34.0 Nonrheumatic mitral (valve) insufficiency (principal)
CPT/HCPCS: 93306

== ENCOUNTER 2023-09-24 10:23 | Outpatient (CLI) | payer MEDICARE, OTHER, SELFPAY ==
[2023-09-24 10:43] LABS: PHA INR Fingerstick 2.4 (0.9-1.1)
== END 2023-09-24 10:44 ==
LOC: ACC 10:24
PROVIDERS: PCP Internal Medicine Adolescent Medicine; Visit Provider Internal Medicine Adolescent Medicine
DX: Z79.01 Long term (current) use of anticoagulants (principal); Z51.81 Encounter for therapeutic drug level monitoring; I48.91 Unspecified atrial fibrillation
CPT/HCPCS: 85610; 99211; G0463

== ENCOUNTER 2023-10-27 23:25 | Emergency (ER) | payer MEDICARE, OTHER, SELFPAY ==
[2023-10-27 23:25] VITALS: BP 140/76; PULSE 79; RESP 20; TEMP 36.4; O2SAT 97; BMI 21.9
--- NOTE | 2023-10-27 23:37 | HMH.EDGENADL ---
Discharge Plan Disposition Patient Disposition: Home, Self-Care Condition: Good Prescriptions Prescriptions: No Action digoxin 250 mcg tablet 125 mcg PO DAILY 90 Days Qty: 68 Patient Comments: Rx Instructions: 0.5 tab daily umeclidinium-vilanterol 62.5-25 mcg/actuation blister with device 1 puff IH DAILY 30 Days Qty: 60 Patient Comments: carbamazepine 200 mg tablet 200 mg PO HS 90 Days Qty: 180 Patient Comments: tramadol 50 mg tablet 25 mg PO BIDP PRN (Reason: PAIN) 30 Days Qty: 30 sotalol 160 mg tablet 160 mg PO DAILY ketoconazole 2 % cream 1 applic topical QDAY Qty: 30 3RF Rx Instructions: Apply to affected areas. Do not apply between toes. acetaminophen 500 MG tablet 500 mg PO Q4HP PRN (Reason: As Needed For Fever Or Pain) Rx Instructions: take 1 tab q4-6h prn alprazolam 0.5 MG tablet 0.5 mg PO BID Rx Instructions: take 1 tab daily, 0.5 tab at 1500, 1 tab at hs warfarin 7.5 mg tablet 7.5 mg PO HS Rx Instructions: half of a tab Friday Only pantoprazole 40 MG tablet,delayed release (DR/EC) 40 mg PO DAILY Referrals Follow up/Referrals: Terrance Power III, MD [Staff Physician] - See instructions (87 F on warfarin, having recurrent nose bleeds, may need cautery ) Provider,Referral, [Primary Care Provider] - See instructions Activity Restrictions/Add. Instructions Additional Instructions/Restrictions: You were evaluated in the ER for nosebleed which has stopped. Your INR is 3.1. - SKIP one dose of warfarin, then resume as normal - CALL the coumadin clinic and make an appointment for 1-2 days from now for INR recheck. You should be getting checked more frequently since your INR is high and you're having side effects. - You have been referred to ENT for outpatient follow-up. They should call for an appointment. Use the new saline nose spray in each nostril every 4 hours as needed for dry nose. If you have nosebleed again, pack the nose for at least 30 minutes. If it does not stop bleeding, then use your Afrin spray in the side that is bleeding and pack the nose again for 30 minutes. Make an appoinment with your primary care physician in 2-3 days for reevaluation. Return to the ER with any new, worsening, or otherwise concerning symptoms. Clinical Impressions Clinical Impression: Epistaxis, Elevated INR Instructions Patient Instructions: DI for Nosebleed Discharge ED Provider: Veronique Pham General Adult HPI General Chief complaint: Epistaxis Stated complaint: nose bleed Time Seen by Provider: 10/27/23 23:36 History of Present Illness HPI narrative: This 87-year-old female on warfarin for atrial fibrillation presents to the ER with concerns of nosebleed. Patient has been having nosebleeds intermittently few times a week for the last few weeks. She states her last nosebleed was about 5 days ago. She states that usually do not last long and she can pack tissue and it and get it to stop by itself. She states this nosebleed today onset abruptly around 9 PM, approximately 1.5 hours prior to arrival she states it was bleeding from further back in her nose than it usually does. She states it also bled longer and packing her nose did not work to stop it so she called EMS. She states her last INR was above 3 but she is only being checked every 4 to 6 weeks. Most recently was 4 weeks ago. Patient states she is taking warfarin 7.5 mg daily every day except Sundays when she takes 3.25 mg. Upon EMS arrival patient's nosebleed had stopped. She states she did have a few clots come out of the left side of her nose which was the side that was bleeding. She admits that she does have Afrin at home but has only used it once or twice previously and did not think about using it this time. She does not have any saline spray. Patient has a history of atrial fibrillation, other cardiac problems reportedly
[2023-10-27 23:50] LABS: Basophils % 0.4 % (0.1-2.0); Eosinophils # 0.1 K/mm3 (0.0-0.4); Eosinophils % 2.5 % (0.1-12.0); Hematocrit 33.1 % (37.0-47.0); Hemoglobin 10.8 g/dL (12.2-16.2); Lymphocytes # 0.9 K/mm3 (0.7-4.5); Lymphocytes % 15.2 % (10-50); Mean Corpuscular HGB Conc 32.7 g/dL (31.8-35.4); Mean Corpuscular Hemoglobin 30.6 pg (27.0-31.2); Mean Corpuscular Volume 93.6 fl (81-99); Mean Platelet Volume 8.1 fl (7.4-10.4); Monocytes # 0.4 K/mm3 (0.1-1.0); Monocytes % 7.7 % (1.7-9.3); Neutrophils # 4.3 K/mm3 (1.8-7.8); Neutrophils % 74.3 % (37.0-80.0); Platelet Count 213 K/mm3 (142-424); Red Blood Count 3.54 M/mm3 (4.20-5.40); Red Cell Distribution Width 13.5 % (11.5-17.5); White Blood Count 5.7 K/mm3 (4.8-10.8)
[2023-10-28 00:04] LABS: Activated Partial Thrombo Time 34.1 seconds (22.8-30.6); INR 3.13 (0.9-1.1); Prothrombin Time 31.4 seconds (10.1-12.5)
[2023-10-28 00:43] VITALS: BP 144/77; PULSE 62; RESP 18; TEMP 36.7; O2SAT 96
== END 2023-10-28 01:05 | disposition home or self-care (01) ==
PROVIDERS: Emergency Provider Emergency Medicine
DX: R04.0 Epistaxis (principal); I48.91 Unspecified atrial fibrillation; D64.9 Anemia, unspecified; Z79.01 Long term (current) use of anticoagulants
CPT/HCPCS: 85025; 85610; 85730; 99284

== ENCOUNTER 2023-11-05 10:27 | Outpatient (CLI) | payer MEDICARE, OTHER, SELFPAY ==
[2023-11-05 12:16] LABS: PHA INR Fingerstick 3.9 (0.9-1.1)
== END 2023-11-05 14:20 ==
LOC: ACC 10:28
PROVIDERS: PCP Internal Medicine Adolescent Medicine; Visit Provider Internal Medicine Adolescent Medicine
DX: Z79.01 Long term (current) use of anticoagulants (principal); Z51.81 Encounter for therapeutic drug level monitoring; I48.91 Unspecified atrial fibrillation
CPT/HCPCS: 85610; 99211; G0463

== ENCOUNTER 2023-11-21 11:57 | Outpatient (CLI) | payer MEDICARE, OTHER, SELFPAY ==
[2023-11-21 12:20] LABS: PHA INR Fingerstick 2.6 (0.9-1.1)
== END 2023-11-21 12:22 ==
LOC: ACC 12:00
PROVIDERS: PCP Internal Medicine Adolescent Medicine; Visit Provider Internal Medicine Adolescent Medicine
DX: Z79.01 Long term (current) use of anticoagulants (principal); Z51.81 Encounter for therapeutic drug level monitoring; I48.91 Unspecified atrial fibrillation
CPT/HCPCS: 85610; 99211; G0463

== ENCOUNTER 2023-12-19 11:11 | Outpatient (CLI) | payer MEDICARE, OTHER, SELFPAY ==
[2023-12-19 14:39] LABS: PHA INR Fingerstick 2.7 (0.9-1.1)
== END 2023-12-19 14:42 ==
LOC: ACC 11:12
PROVIDERS: PCP Internal Medicine Adolescent Medicine; Visit Provider Internal Medicine Adolescent Medicine
DX: Z79.01 Long term (current) use of anticoagulants (principal); Z51.81 Encounter for therapeutic drug level monitoring; I48.91 Unspecified atrial fibrillation
CPT/HCPCS: 85610; 99211; G0463

== ENCOUNTER 2024-01-21 10:59 | Outpatient (CLI) | payer MEDICARE, OTHER, SELFPAY ==
[2024-01-21 14:20] LABS: PHA INR Fingerstick 2.5 (0.9-1.1)
== END 2024-01-21 14:29 ==
LOC: ACC 11:00
PROVIDERS: PCP Internal Medicine Adolescent Medicine; Visit Provider Internal Medicine Adolescent Medicine
DX: Z79.01 Long term (current) use of anticoagulants (principal); I48.91 Unspecified atrial fibrillation; Z51.81 Encounter for therapeutic drug level monitoring
CPT/HCPCS: 85610; 99211; G0463

== ENCOUNTER 2024-03-10 11:04 | Outpatient (CLI) | payer MEDICARE, OTHER, SELFPAY ==
[2024-03-10 11:45] LABS: PHA INR Fingerstick 2.4 (0.9-1.1)
== END 2024-03-10 11:47 ==
LOC: ACC 11:04
PROVIDERS: PCP Internal Medicine Adolescent Medicine; Visit Provider Internal Medicine Adolescent Medicine
DX: I48.21 Permanent atrial fibrillation (principal); Z79.01 Long term (current) use of anticoagulants; Z51.81 Encounter for therapeutic drug level monitoring
CPT/HCPCS: 85610; 99211; G0463

== ENCOUNTER 2024-04-21 11:11 | Outpatient (CLI) | payer MEDICARE, OTHER, SELFPAY | END 2024-04-21 11:44 | LOC: ACC 11:13 | PROVIDERS: PCP Nurse Practitioner Family; Visit Provider Internal Medicine Adolescent Medicine | DX: Z79.01 Long term (current) use of anticoagulants (principal); Z51.81 Encounter for therapeutic drug level monitoring; I48.91 Unspecified atrial fibrillation | CPT/HCPCS: 85610; 99211; G0463 ==

== ENCOUNTER 2024-06-02 11:20 | Outpatient (CLI) | payer MEDICARE, OTHER, SELFPAY ==
[2024-06-02 15:26] LABS: PHA INR Fingerstick 2.2 (0.9-1.1)
== END 2024-06-02 15:44 ==
LOC: ACC 11:22
PROVIDERS: PCP Internal Medicine Adolescent Medicine; Visit Provider Internal Medicine Adolescent Medicine
DX: Z79.01 Long term (current) use of anticoagulants (principal); I48.91 Unspecified atrial fibrillation
CPT/HCPCS: 85610; 99211; G0463

== ENCOUNTER 2024-07-14 11:20 | Outpatient (CLI) | payer MEDICARE, OTHER, SELFPAY ==
[2024-07-14 13:39] LABS: PHA INR Fingerstick 2.8 (0.9-1.1)
== END 2024-07-14 14:36 ==
LOC: ACC 11:21
PROVIDERS: PCP Internal Medicine Adolescent Medicine; Visit Provider Internal Medicine Adolescent Medicine
DX: Z79.01 Long term (current) use of anticoagulants (principal); I48.91 Unspecified atrial fibrillation
CPT/HCPCS: 85610; 99211; G0463

== ENCOUNTER 2024-07-22 12:01 | Outpatient (CLI) | payer MEDICARE, OTHER, SELFPAY ==
--- NOTE | 2024-07-22 12:08 | XR_ITS ---
FINAL REPORT CLINICAL HISTORY: LT LEG PAIN FINDINGS: Left TIBIA AND FIBULA There is no acute fracture or dislocation. The joint spaces are intact. There are mild degenerative changes at the knee. There is no soft tissue abnormality. IMPRESSION: No acute fracture Reviewed, Interpreted and Dictated by Deepak Choudhary III, MD Transcribed by Yany Trinh Authenticated and [facility]
== END 2024-07-22 23:59 | disposition home or self-care (01) ==
LOC: RAD 12:02
PROVIDERS: PCP Internal Medicine Adolescent Medicine; Visit Provider Nurse Practitioner Family
DX: M79.605 Pain in left leg (principal)
CPT/HCPCS: 73590

== ENCOUNTER 2024-08-02 13:24 | Emergency (ER) | payer MEDICARE, OTHER, SELFPAY ==
[2024-08-02 13:34] VITALS: BP 156/79; PULSE 68; RESP 18; TEMP 36.4; O2SAT 99; BMI 21.6
--- NOTE | 2024-08-02 13:54 | ED_ITS ---
Discharge Plan Disposition Patient Disposition: Home, Self-Care Condition: Good Prescriptions Prescriptions: No Action umeclidinium-vilanterol 62.5-25 mcg/actuation blister with device 1 puff IH DAILY 30 Days Qty: 60 Patient Comments: carbamazepine 200 mg tablet 200 mg PO HS 90 Days Qty: 180 Patient Comments: tramadol 50 mg tablet 25 mg PO BIDP PRN (Reason: PAIN) 30 Days Qty: 30 digoxin 125 mcg (0.125 mg) tablet 0.125 mg PO DAILY torsemide 10 mg tablet 10 mg PO sotalol 160 mg tablet 160 mg PO DAILY ketoconazole 2 % cream 1 applic topical QDAY Qty: 30 3RF Rx Instructions: Apply to affected areas. Do not apply between toes. [place] Saline 0.65 % aerosol,spray 2 spray intranasal Q4H PRN (Reason: epistaxis) Qty: 50 4RF acetaminophen 500 MG tablet 500 mg PO Q4HP PRN (Reason: As Needed For Fever Or Pain) Rx Instructions: take 1 tab q4-6h prn alprazolam 0.5 MG tablet 0.5 mg PO BID Rx Instructions: take 1 tab daily, 0.5 tab at 1500, 1 tab at hs warfarin 7.5 mg tablet 7.5 mg PO HS Rx Instructions: half of a tab Friday Only pantoprazole 40 MG tablet,delayed release (DR/EC) 40 mg PO DAILY Referrals Follow up/Referrals: Radha Stone MD [Referring] - See instructions (Skin lesion left lateral lower extremity) Wili Arnold MD [Physician] - See instructions (Epistaxis, on Coumadin) Aguila Rodriguez DO [Staff Physician] - See instructions (Bilateral osteoarthritis of the knees) Niranjan Mccaryt MD [Primary Care Provider] - See instructions Activity Restrictions/Add. Instructions Additional Instructions/Restrictions: You need to follow-up tomorrow with your PCP for recheck of your INR as it was high today. Hold tonight's dose of Coumadin. I have referred you to orthopedics for your osteoarthritis of your knees, I have referred you to Dr. Stone of dermatology for the skin lesion, and I have referred you to ear nose and throat to check your nose after your recent nosebleed. Please call and make an appointment in the morning. Continue doing what you had done previously which is Afrin and pressure to your nose but return to the ER for any worsening signs or symptoms as needed. Clinical Impressions Clinical Impression: Epistaxis, Skin lesion, Supratherapeutic INR Osteoarthritis of both knees Qualifiers: Osteoarthritis type: primary Qualified Code(s): M17.0 - Bilateral primary osteoarthritis of knee Instructions Patient Instructions: DI for Nosebleed Print Language Print Language: Tuvaluan Discharge ED Provider: Osmin Vyas General Adult HPI <FROYLAN Proctor - Last Filed: 08/02/24 16:04> General Chief complaint: Epistaxis Stated complaint: Epistaxis Time Seen by Provider: 08/02/24 13:48 Mode of Arrival: EMS Source of Information: Patient Limitations: No Limitations Description of Symptoms (Recalled from ER Triage Doc. by RN): Pt reports a nose bleed that started around 0930 this morning. History of Present Illness HPI narrative: Patient presents for evaluation of multiple complaints. Patient reported primarily she came because she has a nosebleed. It started this morning at 930. She actually has packed it with a tissue herself and tried Afrin. She is on Coumadin for atrial fibrillation. Patient also has a pacemaker. Additionally she has other complaints which is bilateral knee pain new swelling in the left knee chronic pain of the right lower extremity that she attributes to sciatica complaints of a skin cancer of the left lower extremity. Patient nor her drive for have transportation according to her. She denies fever chills hemoptysis hematochezia melena hematemesis hematuria. She knows that her Coumadin is supposed to be between 2 and 3 but does not know what it was at the last visit. Related Data Home Medications ?Medication ?Instructions ?Recorded ?Confirmed carbamazepine 200 mg tablet 200 mg PO HS Pain 90 days ##180 02/16/18 06/16/24 umeclidinium 62.5 mcg-vilanterol 1 puff inhalation DAILY Breathing 02/16/18 06/16/24 25 mcg/actuation powdr for problems 30 days ##60 inhalation tramadol 50 mg tablet 25 mg PO BIDP PRN PAIN 30 days ##30 05/11/18 06/16/24 pantoprazole 40 mg tablet,delayed 40 mg PO DAILY GERD 12/20/18 06/16/24 release acetaminophen 500 mg tablet 500 mg PO Q4HP PRN As Needed For 07/19/20 06/16/24 Fever Or Pain alprazolam 0.5 mg tablet 0.5 mg PO BID Anxiety 07/19/20 06/16/24 sotalol 160 mg tablet 160 mg PO DAILY heart 12/07/20 06/16/24 warfarin 7.5 mg tablet 7.5 mg PO HS Blood thinner 05/21/23 06/16/24 digoxin 125 mcg (0.125 mg) tablet 0.125 mg PO DAILY 12/16/23 06/16/24 torsemide 10 mg tablet 10 mg PO 12/16/23 06/16/24 Previous Rx's ?Medication ?Instructions ?Recorded ketoconazole 2 % topical cream 1 applic topical QDAY tinea pedis 01/29/23 #30 grams sodium chloride 0.65 % nasal spray 2 spray intranasal Q4H PRN 04/19/24 aerosol ([place] Saline) epistaxis #50 mL Allergies Allergy/AdvReac Type Severity Reaction Status Date / Time ciprofloxacin [From Cipro HC] Allergy Severe DIFFICULTY Verified 06/16/24 11:13 SPEAKING,SHORTNESS OF BREATH codeine Allergy Severe DIFFICULTY Verified 06/16/24 11:13 SPEAKING, SHORTNESS OF BREATH hydrocortisone Allergy Severe DIFFICULTY Verified 06/16/24 11:13 [From Cipro HC] SPEAKING,SHORTNESS OF BREATH Iodinated Contrast Media Allergy Severe LOCKED JAWS Verified 06/16/24 11:13 [Iodinated Contrast Media - IV Dye] fexofenadine [From Radha] Allergy Intermediate LIPS SWELL Verified 06/16/24 11:13 ioxaglic acid Allergy Intermediate I-HIVES; Verified 06/16/24 11:13 LIPS SWELL loratadine [From Claritin] Allergy Intermediate LIPS SWELL Verified 06/16/24 11:13 Penicillins Allergy Intermediate I-RASH Verified 06/16/24 11:13 rofecoxib Allergy Intermediate MAKES Verified 06/16/24 11:13 SICK ALL OVER tetracaine Allergy Mild PAIN IN EYE Verified 06/16/24 11:13 azithromycin [AZITHROMYCIN] Allergy Unknown Verified 06/16/24 11:13 calcium carbonate Allergy Unknown Verified 06/16/24 11:13 [From OS-ARMIDA] cefuroxime [CEFUROXIME] Allergy Unknown Verified 06/16/24 11:13 cerivastatin Allergy Unknown Verified 06/16/24 11:13 erythromycin base Allergy Unknown Verified 06/16/24 11:13 lovastatin [From Advicor] Allergy Unknown UNKNOWN Verified 06/16/24 11:13 menaquinone-7 (vitamin K2) Allergy Unknown Verified 06/16/24 11:13 [VITAMIN K2] niacin [From Advicor] Allergy Unknown UNKNOWN Verified 06/16/24 11:13 phytonadione (vitamin K1) Allergy Unknown UNKOWN Verified 06/16/24 11:13 [phytonadione] Sulfa (Sulfonamide Allergy Unknown Verified 06/16/24 11:13 Antibiotics) cortisone AdvReac Intermediate SWELLING Verified 06/16/24 11:13 aspirin [From Percodan] AdvReac Mild HYPER Verified 06/16/24 11:13 clarithromycin [From Biaxin] AdvReac Mild NA-DIARRHEA Verified 06/16/24 11:13 oxycodone [From Percodan] AdvReac Mild HYPER Verified 06/16/24 11:13 PFSH <FROYLAN Proctor - Last Filed: 08/02/24 16:04> [facility] Disclaimer: The information contained in this section may have been updated after the patient was seen, as this information can be updated by other users. Social History Smoking Status: Never smoker alcohol intake: never substance use type: denies use current occupational status: retired Travel in the last 8 weeks: None household members: spouse housing: house current occupational exposures/hazards: No caffeine: No <FROYLAN Proctor - Last Filed: 08/02/24 16:04> ROS Obtained: Yes Systems reviewed as appropriate & no additional complaints except as documented Physical Exam <FROYLAN Proctor Last Filed: 08/02/24 16:04> General General appearance: alert and in no apparent distress Respiratory Respiratory exam: Present normal lung sounds bilaterally Cardiovascular Cardiovascular exam: Present regular rate Neurological Exam Neurological exam: Present alert and oriented X3 Medical Decision Making <FROYLAN Proctor Last Filed: 08/02/24 16:04> Medical Records Medical records reviewed: Yes I reviewed the patient's medical records. Rashel Inquiry Pt receiving controlled substance: No Vital Signs: 08/02/24 13:34 08/02/24 14:15 08/02/24 16:24 Temperature 97.6 F 97.6 F Temperature Source Oral Pulse Rate 62 63 Pulse Rate [Right Brachial] 68 Respiratory Rate 18 18 18 Blood Pressure 159/77 H 164/71 H Blood Pressure [Right Arm] 156/79 H Blood Pressure Mean [Right Arm] 104 Blood Pressure Source Automatic Cuff Blood Pressure Position Sitting 02 Sat by Pulse Oximetry 99 98 Oxygen Delivery Method Room Air Room Air Room Air Lab Data Lab results reviewed: Yes I reviewed the patient's lab results. Lab Results 08/02/24 14:29: WBC 4.4 L, RBC 3.83 L, Hgb 11.4 L, Hct 37.1, MCV 96.9, MCH 29.7, MCHC 30.6 L, RDW 13.3, Plt Count 270, MPV 8.2, Neut % (Auto) 73.3, Lymph % (Auto) 16.7, [place] % (Auto) 7.1, Eos % (Auto) 2.6, Baso % (Auto) 0.4, Neut # (Auto) 3.2, Lymph # (Auto) 0.7, [place] # (Auto) 0.3, Eos # (Auto) 0.1, Baso # (Auto) 0.0, PT 36.6 H, INR 3.72 H, APTT 39.6 H, Sodium 135 L, Potassium 4.1, Chloride 98, Carbon Dioxide 32 H, Anion Gap 9.1, BUN 11, Creatinine 0.80, Estimated Creat Clear 38, Estimated GFR 68, Est GFR ( Amer) 82, Glucose 98, Calcium 9.2, Total Bilirubin 0.6, AST 33, ALT 17, Alkaline Phosphatase 114, Total Protein 8.0, Albumin 4.3, Globulin 3.7 H, Albumin/Globulin Ratio 1.2 08/02/24 14:29 08/02/24 14:29 Orders (Tests/Meds): ED MEDICATIONS Discontinued Medications Generic Name Dose Route Start Last Admin Trade Name Freq PRN Reason Stop Dose Admin Oxymetazoline HCl 15 ml 08/02/24 13:49 08/02/24 14:15 Oxymetazoline Nasal Rankin 0.05% 15ml NS 08/02/24 13:50 15 ml ONCE ONE Administration ORDERS Category Date Time Status Knee XR left 3 views [XR knee LT 3V] Stat Exams 08/02/24 14:14 Completed Knee XR right 3 views [XR knee RT 3V] Stat Exams 08/02/24 14:14 Completed CBC w/Auto Diff [Complete Blood Count Auto Diff] Stat Lab 08/02/24 14:29 Completed CMP [Comprehensive Metabolic Panel] Stat Lab 08/02/24 14:29 Completed INR [Prothrombin Time INR] Stat Lab 08/02/24 14:29 Completed PTT [Activated Partial Thrombo Time] Stat Lab 08/02/24 14:29 Completed Medical Decision Narrative: In summary patient is a 88-year-old female who presents to the emergency department for evaluation of multiple complaints but primarily in epistaxis, left knee pain and swelling, right knee swelling, chronic right lower extremity pain, and a skin cancer of her left lower extremity. Patient is hemodynamically stable upon arrival, afebrile. Physical exam is remarkable for evidence of epistaxis in the left nares however it currently has a tissue that she placed at home in place. Patient has slight joint fullness of bilateral knees, left greater than right without evidence of erythema induration, she is neurovascular intact distally. She has strong pulses distally. She has no bilateral calf tenderness.. Differential diagnosis includes supratherapeutic INR, simple epistaxis, osteoarthritis, joint effusion, fracture although less likely as patient has not fallen and skin cancer versus noncancerous lesion of left lower extremity etc.. Initial workup will be conducted with hematologic labs plain film x-rays of the bilateral knees. Initial interventions include Afrin in the left nares after removal of home packing. Initial workup reviewed by me shows that she has an elevated INR of 3.7 to which is above her goal of 2- 3 however the remainder of her hematologic labs are nonactionable, imaging via my and formal interpretation shows osteoarthritis but no evidence of acute fracture. Upon repeat evaluation patient has been hemostatic after administration of Afrin and packing removal. Given this patient is instructed to hold her Coumadin dose until her INR is rechecked. She is to call in the morning to the Coumadin clinic to arrange her INR check. I have referred her to orthopedics for her osteoarthritis pain in her bilateral knees. I referred her to dermatology for the skin lesion on her left lateral lower extremity. Thus she is appropriate for discharge with strict return precautions. <Osmin Vyas MD - Last Filed: 08/02/24 17:21> Vital Signs: 08/02/24 13:34 08/02/24 14:15 08/02/24 16:24 Temperature 97.6 F 97.6 F Temperature Source Oral Pulse Rate 62 63 Pulse Rate [Right Brachial] 68 Respiratory Rate 18 18 18 Blood Pressure 159/77 H 164/71 H Blood Pressure [Right Arm] 156/79 H Blood Pressure Mean [Right Arm] 104 Blood Pressure Source Automatic Cuff Blood Pressure Position Sitting 02 Sat by Pulse Oximetry 99 98 Oxygen Delivery Method Room Air Room Air Room Air Lab Data Lab Results 08/02/24 14:29: WBC 4.4 L, RBC 3.83 L, Hgb 11.4 L, Hct 37.1, MCV 96.9, MCH 29.7, MCHC 30.6 L, RDW 13.3, Plt Count 270, MPV 8.2, Neut % (Auto) 73.3, Lymph % (Auto) 16.7, [place] % (Auto) 7.1, Eos % (Auto) 2.6, Baso % (Auto) 0.4, Neut # (Auto) 3.2, Lymph # (Auto) 0.7, [place] # (Auto) 0.3, Eos # (Auto) 0.1, Baso # (Auto) 0.0, PT 36.6 H, INR 3.72 H, APTT 39.6 H, Sodium 135 L, Potassium 4.1, Chloride 98, Carbon Dioxide 32 H, Anion Gap 9.1, BUN 11, Creatinine 0.80, Estimated Creat Clear 38, Estimated GFR 68, Est GFR ( Amer) 82, Glucose 98, Calcium 9.2, Total Bilirubin 0.6, AST 33, ALT 17, Alkaline Phosphatase 114, Total Protein 8.0, Albumin 4.3, Globulin 3.7 H, Albumin/Globulin Ratio 1.2 Orders (Tests/Meds): ED MEDICATIONS Discontinued Medications Generic Name Dose Route Start Last Admin Trade Name Freq PRN Reason Stop Dose Admin Oxymetazoline HCl 15 ml 08/02/24 13:49 08/02/24 14:15 Oxymetazoline Nasal Rankin 0.05% 15ml NS 08/02/24 13:50 15 ml ONCE ONE Administration ORDERS Category Date Time Status Knee XR left 3 views [XR knee LT 3V] Stat Exams 08/02/24 14:14 Completed Knee XR right 3 views [XR knee RT 3V] Stat Exams 08/02/24 14:14 Completed CBC w/Auto Diff [Complete Blood Count Auto Diff] Stat Lab 08/02/24 14:29 Completed CMP [Comprehensive Metabolic Panel] Stat Lab 08/02/24 14:29 Completed INR [Prothrombin Time INR] Stat Lab 08/02/24 14:29 Completed PTT [Activated Partial Thrombo Time] Stat Lab 08/02/24 14:29 Completed ECG Data Tracing #1: Independently interpreted by me rate 64, rhythm is AV paced, no excessive discordance, no concordant ST changes, QRS 469. Appropriate capture. Medical Decision Narrative: In summary patient is a 88-year-old female who presents to the emergency department for evaluation of multiple complaints but primarily in epistaxis, left knee pain and swelling, right knee swelling, chronic right lower extremity pain, and a skin cancer of her left lower extremity. Patient is hemodynamically stable upon arrival, afebrile. Physical exam is remarkable for evidence of epistaxis in the left nares however it currently has a tissue that she placed at home in place. Patient has slight joint fullness of bilateral knees, left greater than right without evidence of erythema induration, she is neurovascular intact distally. She has strong pulses distally. She has no bilateral calf tenderness.. Differential diagnosis includes supratherapeutic INR, simple epistaxis, osteoarthritis, joint effusion, fracture although less likely as patient has not fallen and skin cancer versus noncancerous lesion of left lower extremity etc.. Initial workup will be conducted with hematologic labs plain film x-rays of the bilateral knees. Initial interventions include Afrin in the left nares after removal of home packing. Initial workup reviewed by me shows that she has an elevated INR of 3.7 to which is above her goal of 2- 3 however the remainder of her hematologic labs are nonactionable, imaging via my and formal interpretation shows osteoarthritis but no evidence of acute fracture. Upon repeat evaluation patient has been hemostatic after administration of Afrin and packing removal. Given this patient is instructed to hold her Coumadin dose until her INR is rechecked. She is to call in the morning to the Coumadin clinic to arrange her INR check. I have referred her to orthopedics for her osteoarthritis pain in her bilateral knees. I referred her to dermatology for the skin lesion on her left lateral lower extremity. Thus she is appropriate for discharge with strict return precautions. I was consulted by the LORI, and we discussed the complexity of the problems being addressed. I approved the treatment and management plan for this patient's care in the emergency department, thus performing a substantive portion of the medical decision making. Osmin Vyas MD Critical Care <FROYLAN Proctor - Last Filed: 08/02/24 16:04> Critical Care Time Critical Care Time: No
--- NOTE | 2024-08-02 14:14 | XR_ITS ---
FINAL REPORT CLINICAL HISTORY: Knee pain and swelling FINDINGS: AP, lateral and oblique views of the right knee were obtained. There is no prior exam for comparison. There is no acute osseous abnormality of the right knee. There is degenerative joint disease with chondrocalcinosis, more pronounced in the patellofemoral compartment. A small joint effusion is noted. The soft tissues are normal. IMPRESSION: No acute osseous abnormality of the right knee. Degenerative joint disease and small joint effusion. Reviewed, Interpreted and Dictated by Celine Robledo MD Transcribed by Alisa Blanco Authenticated and [facility]
--- NOTE | 2024-08-02 14:14 | XR_ITS ---
FINAL REPORT CLINICAL HISTORY: Knee pain and swelling FINDINGS: AP, lateral and oblique views of the left knee were obtained. There is no prior exam for comparison. There is no acute osseous abnormality of the left knee. 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 There is a moderate joint effusion. The soft tissues are normal. IMPRESSION: No acute osseous abnormality of the left knee. Degenerative joint disease and moderate joint effusion. Consider MRI. Reviewed, Interpreted and Dictated by Celine Robledo MD Transcribed by Alisa Blanco Authenticated and [facility]
[2024-08-02 14:15] VITALS: BP 159/77; PULSE 62; RESP 18; O2SAT 98
[2024-08-02] MEDS: OXYMETAZOLINE NASAL SPRAY 0.05% 15ML 15 ML NS (14:15)
[2024-08-02 14:50] LABS: Basophils % 0.4 % (0.1-2.0); Eosinophils # 0.1 K/mm3 (0.0-0.4); Eosinophils % 2.6 % (0.1-12.0); Hematocrit 37.1 % (37.0-47.0); Hemoglobin 11.4 g/dL (12.2-16.2); Lymphocytes # 0.7 K/mm3 (0.7-4.5); Lymphocytes % 16.7 % (10-50); Mean Corpuscular HGB Conc 30.6 g/dL (31.8-35.4); Mean Corpuscular Hemoglobin 29.7 pg (27.0-31.2); Mean Corpuscular Volume 96.9 fl (81-99); Mean Platelet Volume 8.2 fl (7.4-10.4); Monocytes # 0.3 K/mm3 (0.1-1.0); Monocytes % 7.1 % (1.7-9.3); Neutrophils # 3.2 K/mm3 (1.8-7.8); Neutrophils % 73.3 % (37.0-80.0); Platelet Count 270 K/mm3 (142-424); Red Blood Count 3.83 M/mm3 (4.20-5.40); Red Cell Distribution Width 13.3 % (11.5-17.5); White Blood Count 4.4 K/mm3 (4.8-10.8)
[2024-08-02 14:56] LABS: Albumin Level 4.3 g/dl (3.5-5.0); Chloride 98 mmol/L (98-107); Potassium 4.1 mmoL/L (3.5-5.1); Sodium 135 mmol/L (136-145)
[2024-08-02 14:57] LABS: Activated Partial Thrombo Time 39.6 seconds (22.8-30.6); INR 3.72 (0.9-1.1); Prothrombin Time 36.6 seconds (10.1-12.5)
[2024-08-02 14:59] LABS: Alanine Aminotransferase 17 U/L (12-78); Albumin/Globulin Ratio 1.2 (1.1-1.8); Alkaline Phosphatase 114 U/L (38-126); Anion Gap 9.1 mEq/L (5-15); Aspartate Amino Transferase 33 U/L (14-36); Bilirubin,Total 0.6 mg/dl (0.2-1.3); Blood Urea Nitrogen 11 mg/dl (7-17); Calcium 9.2 mg/dl (8.4-10.2); Carbon Dioxide 32 mmol/L (22.0-30.0); Creatinine Clearance Estimated 38 mL/min (50-200); Estimated Glomerular Filt Rate 68 ml/min (>60); GFR (African American) 82 ML/MIN (>60); Globulin 3.7 g/dL (1.3-3.2); Glucose 98 mg/dl (74-100)
--- NOTE | 2024-08-02 15:51 | ECG_ITS ---
APPROVED REPORT Exam: Resting ECG HR:64 bpm ECG Measurements Heart Rate 64 AXES NJ 176 P -83 QRSd 188 QRS -72 QT 460 T 105 QTc 469 Conclusion ELECTRONIC ATRIAL PACEMAKER ELECTRONIC VENTRICULAR PACEMAKER ABNORMAL RHYTHM ECG UNCONFIRMED REPORT Electronically signed by : SARA SINGER, 08/06/2024 06:41:04
[2024-08-02 16:24] VITALS: BP 164/71; PULSE 63; RESP 18; TEMP 36.4; O2SAT 98
== END 2024-08-02 16:24 | disposition home or self-care (01) ==
PROVIDERS: Emergency Medicine; Emergency Provider Emergency Medicine; PCP Internal Medicine Adolescent Medicine
DX: R04.0 Epistaxis (principal); R79.1 Abnormal coagulation profile; M17.0 Bilateral primary osteoarthritis of knee; L98.9 Disorder of the skin and subcutaneous tissue, unspecified; I48.0 Paroxysmal atrial fibrillation; Z79.01 Long term (current) use of anticoagulants
CPT/HCPCS: 73562; 80053; 85025; 85610; 85730; 93005; 99284

== ENCOUNTER 2024-09-01 10:28 | Outpatient (CLI) | payer MEDICARE, OTHER, SELFPAY ==
[2024-09-01 14:36] LABS: PHA INR Fingerstick 2.7 (0.9-1.1)
== END 2024-09-01 14:46 ==
LOC: ACC 10:30
PROVIDERS: PCP Internal Medicine Adolescent Medicine; Visit Provider Family Medicine
DX: Z79.01 Long term (current) use of anticoagulants (principal); I48.91 Unspecified atrial fibrillation
CPT/HCPCS: 85610; 99211; G0463

== ENCOUNTER 2024-09-16 10:06 | Day surgery (SDC) | payer MEDICARE, OTHER, SELFPAY ==
[2024-09-14 09:45] VITALS: BMI 36.0
[2024-09-16 10:31] VITALS: BP 153/81; PULSE 61; RESP 16; TEMP 36.4; O2SAT 96
--- NOTE | 2024-09-16 12:14 | EXP.OP.NOTE ---
Date of procedure: 09/16/24 Pre-op Diagnosis:: Left lower extremity skin lesion (1.5 cm) Post-op Diagnosis:: Same Procedure performed:: Excision of 1.5 cm left lower extremity skin neoplasm Surgeon:: Sergey Hutchinson MD Anesthesia: local Estimated blood loss (mL): 5 Operative findings:: Lesion excised in toto with at least 1 mm margin Operative note:: After informed consent was obtained the patient was taken to the procedure room. Her left lower extremity was prepped and draped in a sterile fashion. After infiltration with local anesthetic an elliptical incision was made around the lesion. The deep subcutaneous tissue was sharply dissected. The lesion was excised in toto and passed off for pathologic evaluation. Electrocautery was utilized to achieve hemostasis. Skin was reapproximated with interrupted 4-0 nylon in a mattress fashion. Dressings were applied and the patient was discharged in stable condition. Condition: stable Disposition: no change Specimens:: Left lower extremity skin lesion Complications:: No immediate
[2024-09-16] MEDS: LIDOCAINE 1% 20ML MDV 20 ML (12:23)
[2024-09-16 12:30] VITALS: BP 155/85; PULSE 61; RESP 18; TEMP 37; O2SAT 98
== END 2024-09-16 12:40 | disposition home or self-care (01) ==
PROVIDERS: PCP Internal Medicine Adolescent Medicine; Visit Provider Surgery
PROC: (CPT 11602; principal; 2024-09-16 11:15)
DX: C44.729 Squamous cell carcinoma of skin of left lower limb, including hip (principal)
CPT/HCPCS: 11602; 88305

== ENCOUNTER 2024-10-13 10:28 | Outpatient (CLI) | payer MEDICARE, OTHER, SELFPAY ==
[2024-10-13 14:39] LABS: PHA INR Fingerstick 3.6 (0.9-1.1)
== END 2024-10-13 15:38 ==
LOC: ACC 10:30
PROVIDERS: PCP Internal Medicine Adolescent Medicine; Visit Provider Internal Medicine Adolescent Medicine
DX: Z79.01 Long term (current) use of anticoagulants (principal); I48.91 Unspecified atrial fibrillation
CPT/HCPCS: 85610; 99211; G0463

== ENCOUNTER 2024-11-03 11:11 | Outpatient (CLI) | payer MEDICARE, OTHER, SELFPAY ==
[2024-11-03 14:03] LABS: PHA INR Fingerstick 1.9 (0.9-1.1)
== END 2024-11-03 14:05 ==
LOC: ACC 11:14
PROVIDERS: PCP Nurse Practitioner Family; Visit Provider Internal Medicine Adolescent Medicine
DX: Z79.01 Long term (current) use of anticoagulants (principal); I48.91 Unspecified atrial fibrillation
CPT/HCPCS: 85610; 99211; G0463

== ENCOUNTER 2024-12-16 11:56 | Outpatient (CLI) | payer MEDICARE, OTHER, SELFPAY ==
--- NOTE | 2024-12-16 14:21 | XR_ITS ---
FINAL REPORT TECHNIQUE: Right ribs, 3 views CLINICAL HISTORY: RT SIDE CHEST WALL PAIN COMPARISON: None FINDINGS: RIGHT RIBS: 3 views of the right ribs demonstrate linear atelectasis or scar present in the right midlung as well as a right pleural effusion. No acute bony abnormality is identified. No displaced rib fracture or pneumothorax is noted. IMPRESSION: Linear atelectasis or scar present in the right midlung with a right pleural effusion. No displaced rib fracture or pneumothorax is noted. Reviewed, Interpreted and Dictated by Kirk Dickerson MD Transcribed by Shelbi Gonsales Authenticated and [facility]
--- NOTE | 2024-12-16 14:24 | XR_ITS ---
FINAL REPORT TECHNIQUE: Chest PA & Lateral CLINICAL HISTORY: RT SIDE CHEST WALL PAIN COMPARISON: None FINDINGS: 2 views of the chest were performed. The heart size is mildly enlarged. A left subclavian pacemaker is present. The mediastinum is within normal limits. A small right pleural effusion is present. There is a linear right perihilar scar versus atelectasis noted. There is no pneumothorax. The bony thorax appears intact. IMPRESSION: Mild cardiomegaly, with a small right pleural effusion and linear right perihilar scar versus atelectasis. Reviewed, Interpreted and Dictated by Kirk Dickerson MD Transcribed by Shelbi Gonsales Authenticated and [facility]
[2024-12-16 14:28] LABS: Basophils % 0.4 % (0.1-2.0); Eosinophils # 0.1 K/mm3 (0.0-0.4); Eosinophils % 1.7 % (0.1-12.0); Hematocrit 35.7 % (37.0-47.0); Hemoglobin 11.2 g/dL (12.2-16.2); Lymphocytes # 0.6 K/mm3 (0.7-4.5); Lymphocytes % 13.1 % (10-50); Mean Corpuscular HGB Conc 31.4 g/dL (31.8-35.4); Mean Corpuscular Hemoglobin 29.6 pg (27.0-31.2); Mean Corpuscular Volume 94.2 fl (81-99); Mean Platelet Volume 9.6 fl (7.4-10.4); Monocytes # 0.4 K/mm3 (0.1-1.0); Monocytes % 7.9 % (1.7-9.3); Neutrophils # 3.7 K/mm3 (1.8-7.8); Neutrophils % 76.7 % (37.0-80.0); Platelet Count 205 K/mm3 (142-424); Red Blood Count 3.79 M/mm3 (4.20-5.40); White Blood Count 4.8 K/mm3 (4.8-10.8)
[2024-12-16 14:34] LABS: Albumin Level 4.5 g/dl (3.5-5.0); Chloride 97 mmol/L (98-107); Sodium 137 mmol/L (136-145)
[2024-12-16 14:37] LABS: Alanine Aminotransferase 18 U/L (12-78); Albumin/Globulin Ratio 1.3 (1.1-1.8); Alkaline Phosphatase 106 U/L (38-126); Aspartate Amino Transferase 36 U/L (14-36); Bilirubin,Total 0.5 mg/dl (0.2-1.3); Blood Urea Nitrogen 12 mg/dl (7-17); Carbon Dioxide 30 mmol/L (22.0-30.0); Estimated Glomerular Filt Rate 68 ml/min (>60); GFR (African American) 82 ML/MIN (>60); Globulin 3.5 g/dL (1.3-3.2)
[2024-12-16 14:38] LABS: Calcium 9.5 mg/dl (8.4-10.2); Glucose 138 mg/dl (74-100)
[2024-12-16 14:55] LABS: PHA INR Fingerstick 2.9 (0.9-1.1)
[2024-12-16 14:56] LABS: Carbamazepine (Tegretol) 6.6 ug/ml (4.0-12.0)
== END 2024-12-16 15:12 ==
PROVIDERS: PCP Internal Medicine Adolescent Medicine; Visit Provider Internal Medicine Adolescent Medicine
DX: Z51.81 Encounter for therapeutic drug level monitoring (principal); I48.11 Longstanding persistent atrial fibrillation; Z79.01 Long term (current) use of anticoagulants
CPT/HCPCS: 36415; 71046; 71100; 80053; 80156; 80162; 85025; 85610; 99211; G0463

== ENCOUNTER 2024-12-31 11:16 | Outpatient (CLI) | payer MEDICARE, OTHER, SELFPAY ==
--- NOTE | 2024-12-31 11:20 | CT_ITS ---
FINAL REPORT CLINICAL HISTORY: RIGHT SIDED CHEST PAIN COMPARISON: 01/08/2022 FINDINGS: CT CHEST without contrast COMPARISON: 01/08/2022. TECHNIQUE: Axial CT without contrast This study was performed with techniques to keep radiation doses as low as reasonably achievable, (ALARA). Individualized dose reduction techniques using automated exposure control or adjustment of mA and/or kV according to the patient's size were employed. FINDINGS: There are widespread subcentimeter nodes, that are minimally larger than seen on the prior CT of 01/08/2022. The lack of significant change in an almost 3-year period suggest that these are inflammatory or infection related, and are considered benign inflammatory nodules. This may be secondary to tuberculosis or fungal infection. There is moderate right lower lobe atelectasis present. A right pleural effusion, new, is present. No significant adenopathy is noted in the chest. IMPRESSION: Interval development of a moderate right pleural effusion since the prior CT of 2021, a finding of uncertain significance. Widespread subcentimeter nodules, minimally worse than seen in 202, likely infectious or inflammatory. This may be secondary to tuberculosis or fungal infection. No significant adenopathy is noted. This study was performed using automated techniques to achieve radiation exposure as low as reasonably achievable Reviewed, Interpreted and Dictated by Christelle Quispe MD Transcribed by Shelbi Gonsales Authenticated and [facility]
== END 2024-12-31 23:59 | disposition home or self-care (01) ==
LOC: RAD 11:18
PROVIDERS: PCP Internal Medicine Adolescent Medicine; Visit Provider Nurse Practitioner Family
DX: R07.89 Other chest pain (principal)
CPT/HCPCS: 71250

== ENCOUNTER 2025-01-07 12:05 | Emergency (ER) | payer MEDICARE, OTHER, SELFPAY ==
[2025-01-07] VITALS (8 sets, daily range): BP systolic 136–159; BP diastolic 75–87; PULSE 60–68; RESP 15–18; TEMP 36.2–36.6; O2SAT 94–99; BMI 20.3
--- NOTE | 2025-01-07 12:07 | HMH.EDCP ---
Discharge Plan Disposition Patient Disposition: Home, Self-Care Condition: Good Prescriptions Prescriptions: New doxycycline hyclate 100 mg capsule 100 mg PO BID 10 Days Qty: 20 0RF No Action umeclidinium-vilanterol 62.5-25 mcg/actuation blister with device 1 puff IH DAILY 30 Days Qty: 60 Patient Comments: carbamazepine 200 mg tablet 200 mg PO HS 90 Days Qty: 180 Patient Comments: digoxin 125 mcg (0.125 mg) tablet 0.125 mg PO DAILY torsemide 10 mg tablet 10 mg PO DAILY sotalol 160 mg tablet 160 mg PO BID ketoconazole 2 % cream 1 applic topical QDAY Qty: 30 3RF Rx Instructions: Apply to affected areas. Do not apply between toes. [place] Saline 0.65 % aerosol,spray 2 spray intranasal Q4H PRN (Reason: epistaxis) Qty: 50 4RF acetaminophen 500 MG tablet 500 mg PO Q4HP PRN (Reason: As Needed For Fever Or Pain) Rx Instructions: take 1 tab q4-6h prn alprazolam 0.5 MG tablet 0.5 mg PO TID Rx Instructions: take 1 tab daily, 0.5 tab at 1500, 1 tab at hs warfarin 7.5 mg tablet 7.5 mg PO HS Rx Instructions: half of a tab Friday Only pantoprazole 40 MG tablet,delayed release (DR/EC) 40 mg PO DAILY Referrals Follow up/Referrals: Provider,Referral, MD [Primary Care Provider] - See instructions Activity Restrictions/Add. Instructions Additional Instructions/Restrictions: The pulmonology office will call you to schedule a sooner follow-up than March. I have prescribed you doxycycline at his request for the next 5 days. I have also referred you to cardiology clinic for a repeat cardiac evaluation. If you have worsening signs or symptoms follow-up with your PCP or return to the ER as needed. Clinical Impressions Clinical Impression: Pleural effusion on right, Right-sided chest pain Print Language Print Language: [place] Discharge ED Provider: David Mcrae HPI <FROYLAN Proctor - Last Filed: 01/07/25 20:55> General Chief Complaint: Chest Pain Stated Complaint: chest pain Time Seen by Provider: 01/07/25 12:07 History of Present Illness HPI narrative: Patient presents for evaluation of right-sided chest pain. Patient states that she has had right-sided chest pain since the middle of November. She has been seen by her PCP and plain film x-rays and noncontrasted CT scan were ordered that showed a right sided pleural effusion that are new since 2021. Patient does have a history of cardiovascular disease and most recent echo I can find is 2022 that showed she had an ejection fraction of 40 to 50% with dilation of the atria mild mitral regurg mild aortic insufficiency and pulmonic regurgitation along with tricuspid regurgitation and an elevated RVSP of 50-55. Patient reports that the pain is worse since the since she had her CT scan however she does not have an oxygen requirement denies fever chills hemoptysis hematochezia melena nausea vomiting diarrhea. There is no aggravating or relieving factors. Related Data Home Medications ?Medication ?Instructions ?Recorded ?Confirmed carbamazepine 200 mg tablet 200 mg PO HS Pain 90 days ##180 02/16/18 01/07/25 umeclidinium 62.5 mcg-vilanterol 1 puff inhalation DAILY Breathing 02/16/18 01/07/25 25 mcg/actuation powdr for problems 30 days ##60 inhalation pantoprazole 40 mg tablet,delayed 40 mg PO DAILY GERD 12/20/18 01/07/25 release acetaminophen 500 mg tablet 500 mg PO Q4HP PRN As Needed For 07/19/20 01/07/25 Fever Or Pain alprazolam 0.5 mg tablet 0.5 mg PO TID Anxiety 07/19/20 01/07/25 sotalol 160 mg tablet 160 mg PO BID heart 12/07/20 01/07/25 warfarin 7.5 mg tablet 7.5 mg PO HS Blood thinner 05/21/23 01/07/25 digoxin 125 mcg (0.125 mg) tablet 0.125 mg PO DAILY 12/16/23 01/07/25 torsemide 10 mg tablet 10 mg PO DAILY 12/16/23 01/07/25 Previous Rx's ?Medication ?Instructions ?Recorded ketoconazole 2 % topical cream 1 applic topical QDAY tinea pedis 01/29/23 #30 grams sodium chloride 0.65 % nasal spray 2 spray intranasal Q4H PRN 04/19/24 aerosol ([place] Saline) epistaxis #50 mL doxycycline hyclate 100 mg capsule 100 mg PO BID 10 days #20 caps 01/07/25 Allergies Allergy/AdvReac Type Severity Reaction Status Date / Time ciprofloxacin (From Cipro HC) Allergy Severe DIFFICULTY Verified 01/07/25 12:48 SPEAKING,SHORTNESS OF BREATH codeine Allergy Severe DIFFICULTY Verified 01/07/25 12:48 SPEAKING, SHORTNESS OF BREATH hydrocortisone (From Cipro Allergy Severe DIFFICULTY Verified 01/07/25 12:48 HC) SPEAKING,SHORTNESS OF BREATH Iodinated Contrast Media Allergy Severe LOCKED JAWS Verified 01/07/25 12:48 (Iodinated Contrast Media - IV Dye) fexofenadine (From Radha) Allergy Intermediate LIPS SWELL Verified 01/07/25 12:48 ioxaglic acid Allergy Intermediate I-HIVES; Verified 01/07/25 12:48 LIPS SWELL loratadine (From Claritin) Allergy Intermediate LIPS SWELL Verified 01/07/25 12:48 Penicillins Allergy Intermediate I-RASH Verified 01/07/25 12:48 rofecoxib Allergy Intermediate MAKES Verified 01/07/25 12:48 SICK ALL OVER tetracaine Allergy Mild PAIN IN EYE Verified 01/07/25 12:48 azithromycin (AZITHROMYCIN) Allergy Unknown Unknown Verified 01/07/25 12:48 allergy reaction calcium carbonate (From Allergy Unknown Unknown Verified 01/07/25 12:48 OS-ARMIDA) allergy reaction cefuroxime (CEFUROXIME) Allergy Unknown Unknown Verified 01/07/25 12:48 allergy reaction cerivastatin Allergy Unknown Unknown Verified 01/07/25 12:48 allergy reaction erythromycin base Allergy Unknown Unknown Verified 01/07/25 12:48 allergy reaction lovastatin (From Advicor) Allergy Unknown UNKNOWN Verified 01/07/25 12:48 menaquinone-7 (vitamin K2) Allergy Unknown Unknown Verified 01/07/25 12:48 (VITAMIN K2) allergy reaction niacin (From Advicor) Allergy Unknown UNKNOWN Verified 01/07/25 12:48 phytonadione (vitamin K1) Allergy Unknown UNKOWN Verified 01/07/25 12:48 (phytonadione) Sulfa (Sulfonamide Allergy Unknown Unknown Verified 01/07/25 12:48 Antibiotics) allergy reaction cortisone AdvReac Intermediate SWELLING Verified 01/07/25 12:48 aspirin (From Percodan) AdvReac Mild HYPER Verified 01/07/25 12:48 clarithromycin (From Biaxin) AdvReac Mild NA-DIARRHEA Verified 01/07/25 12:48 oxycodone (From Percodan) AdvReac Mild HYPER Verified 01/07/25 12:48 PFSH <FROYLAN Proctor - Last Filed: 01/07/25 20:55> [facility] Disclaimer: The information contained in this section may have been updated after the patient was seen, as this information can be updated by other users. Medical History History of gastroesophageal reflux (GERD) History of skin cancer History of fibromyalgia History of arthritis History of hyperlipidemia History of hypertension History of pacemaker Surgical History History of surgical removal of skin lesion S/P placement of cardiac pacemaker History of colonoscopy Family History Other No significant family history Social History Smoking Status: Never smoker alcohol intake: never substance use type: denies use current occupational status: retired Travel in the last 8 weeks: None household members: spouse housing: house current occupational exposures/hazards: No caffeine: No Other Medical History Have you received the Flu Vaccine for this season: No Have you received the Pneumonia Vaccine: No <FROYLAN Proctor - Last Filed: 01/07/25 20:55> ROS Obtained: Yes Systems reviewed as appropriate & no additional complaints except as documented Physical Exam <FROYLAN Proctor - Last Filed: 01/07/25 20:55> General General appearance: alert and in no apparent distress Respiratory Respiratory exam: Absent normal lung sounds bilaterally (Patient has diminished breath sounds in the right lung aragon but no adventitious sounds left lung aragon are clear) Cardiovascular Cardiovascular exam: Present regular rate Neurological Exam Neurological exam: Present alert and oriented X3 HEART Score <FROYLAN Proctor - Last Filed: 01/07/25 20:55> HEART Score HEART Score assessment performed?: Yes History (anamnesis): Slightly suspicious ECG: Non-specific disturbance Age: >65 years Risk factors: Atherosclerosis history Troponin: </= normal limit HEART Score: 5 <David Mcrae MD - Last Filed: 01/08/25 07:23> HEART Score HEART Score: 5 Critical Care <FROYLAN Proctor - Last Filed: 01/07/25 20:55> Critical Care Time Critical Care Time: No Medical Decision Making <FROYLAN Proctor - Last Filed: 01/07/25 20:55> Medical Records Medical records reviewed: Yes I reviewed the patient's medical records. Rashel Inquiry Pt receiving controlled substance: No Vital Signs Vital Signs: 01/07/25 12:05 01/07/25 12:06 01/07/25 12:21 Temperature 97.1 F L Temperature Source Temporal Artery Scan Pulse Rate 60 62 Pulse Rate [Right] 68 Respiratory Rate 18 15 Blood Pressure 151/87 H Blood Pressure [Right Arm] 144/82 H Blood Pressure Mean [Right Arm] 102 Blood Pressure Source Blood Pressure Source [Right Arm] Automatic Cuff Blood Pressure Position [Right Arm] Sitting 02 Sat by Pulse Oximetry 94 L 98 Oxygen Delivery Method Room Air 01/07/25 12:30 01/07/25 13:00 01/07/25 14:30 Temperature Temperature Source Pulse Rate 63 64 60 Pulse Rate [Right] Respiratory Rate 17 Blood Pressure 142/78 H 159/82 H 147/79 H Blood Pressure [Right Arm] Blood Pressure Mean [Right Arm] Blood Pressure Source Blood Pressure Source [Right Arm] Blood Pressure Position [Right Arm] 02 Sat by Pulse Oximetry 96 99 96 Oxygen Delivery Method Room Air Room Air Room Air 01/07/25 15:10 01/07/25 15:30 Temperature 97.8 F Temperature Source Temporal Artery Scan Pulse Rate 60 61 Pulse Rate [Right] Respiratory Rate 17 16 Blood Pressure 136/75 Blood Pressure [Right Arm] Blood Pressure Mean [Right Arm] Blood Pressure Source Automatic Cuff Blood Pressure Source [Right Arm] Blood Pressure Position [Right Arm] 02 Sat by Pulse Oximetry Oxygen Delivery Method Room Air Lab Data Lab results reviewed: Yes I reviewed the patient's lab results. Labs: Lab Results 01/07/25 13:43: WBC 4.9, RBC 3.69 L, Hgb 11.1 L, Hct 34.9 L, MCV 94.6, MCH 30.1, MCHC 31.8, RDW 12.3, Plt Count 218, MPV 9.8, Neut % (Auto) 72.4, Lymph % (Auto) 14.5, Andrews % (Auto) 10.9 H, Eos % (Auto) 1.6, Baso % (Auto) 0.4, Neut # (Auto) 3.5, Lymph # (Auto) 0.7, Andrews # (Auto) 0.5, Eos # (Auto) 0.1, Baso # (Auto) 0.0, Sodium 137, Potassium 4.2, Chloride 95 L, Carbon Dioxide 35 H, Anion Gap 11.2, BUN 14, Creatinine 0.80, Estimated Creat Clear 36, Estimated GFR 68, Est GFR ( Amer) 82, Glucose 100, Calcium 9.5, Total Bilirubin 0.5, AST 31, ALT 17, Alkaline Phosphatase 115, Troponin I < 0.01, Total Protein 8.2, Albumin 4.6, Globulin 3.6 H, Albumin/Globulin Ratio 1.3 01/07/25 13:43 01/07/25 13:43 Response Orders (Tests/Meds): ED MEDICATIONS Discontinued Medications Generic Name Dose Route Start Last Admin Trade Name Freq PRN Reason Stop Dose Admin Acetaminophen 1,000 mg 01/07/25 13:03 01/07/25 13:59 Acetaminophen 1,000mg/100ml Vial IV 01/07/25 13:04 1,000 mg ONCE ONE Administration Diphenhydramine HCl 50 mg 01/07/25 13:03 01/07/25 13:50 Diphenhydramine 50mg/Ml Vial IV 01/07/25 13:04 Not Given ONCE ONE Doxycycline Hyclate 100 mg 01/07/25 14:22 01/07/25 14:47 Doxycycline Hycl 100 Mg Tablet PO 01/07/25 14:23 100 mg ONCE ONE Administration Methylprednisolone Sodium Succinate 125 mg 01/07/25 13:03 01/07/25 13:51 Methylprednisolone Sod Succ 125mg Vial IV 01/07/25 13:04 Not Given ONCE ONE Sodium Chloride 3 ml 01/07/25 14:48 01/07/25 15:29 Sodium Chloride 3% 15ml Neb IH 02/06/25 14:47 3 ml ONCE PRN Administration INDUCE SPUTUM COLLECTION ORDERS Category Date Time Status CBC w/Auto Diff [Complete Blood Count Auto Diff] Stat Lab 01/07/25 13:43 Completed CMP [Comprehensive Metabolic Panel] Stat Lab 01/07/25 13:43 Completed Trop I [Troponin I] Stat Lab 01/07/25 13:43 Completed MDM Narrative Medical Decision Narrative: In summary patient is a 89-year-old female who presents to the emergency department for evaluation of right-sided chest pain. Patient is hemodynamically stable upon arrival, afebrile. Physical exam is remarkable for actually tenderness everywhere that I touched including places far away from her chest wall including her ankle her legs or wrists or hands. Thus physical exam is unreliable for reproducible chest pain. Breath sounds are diminished in the right lung bases but there is no adventitious sounds. Patient has no increased work of breathing she has no accessory muscle use she is satting at 98% on room air currently. Differential diagnosis includes pleuritic chest pain pneumothorax compressive atelectasis ACS etc. Initial workup will be conducted with hematologic labs twelve-lead EKG CT PE protocol. Initial interventions include Tylenol and Toradol. Initial workup reviewed by me and her hematologic labs are nonactionable with normal white count with no left shift and undetectable troponin and my informal interpretation of her previous imaging from December 31 of uncontrasted study shows mild to moderate pleural effusion but no lung collapse. However I did order CT PE protocol and premedicated the patient for reported jaws locking complaint to iodinated contrast and patient initially agreed however when it came time to do the CAT scan patient declined CAT scan. Given that I am unable to characterize any further chest imaging other than what is already been done as patient has stable vital signs no increased work of breathing satting at 100% on room air. I then had an interactive discussion with Dr. Babb of pulmonology regarding patient ZAIDI presentation and patient management. Patient has been referred to him by her PCP however her appointment appointment is in March. He did review her ZAIDI today as well as her previous imaging and he feels that the amount of effusion is not significant enough to explain her symptoms. He is concerned that she may have a compressive pneumonia. He recommended starting the patient on doxycycline and his office will contact her for a sooner appointment for further evaluation and care.. Given this I had interactive discussion with the patient and via shared decision making she feels safe going home with that plan with strict return precautions for any increasing fever increasing shortness of breath. Thus she is appropriate for discharge with strict return precautions close follow-up with her PCP and the pulmonology office will contact her on Friday with a new appointment. <David Mcrae MD - Last Filed: 01/08/25 07:23> Vital Signs Vital Signs: 01/07/25 12:05 01/07/25 12:06 01/07/25 12:21 Temperature 97.1 F L Temperature Source Temporal Artery Scan Pulse Rate 60 62 Pulse Rate [Right] 68 Respiratory Rate 18 15 Blood Pressure 151/87 H Blood Pressure [Right Arm] 144/82 H Blood Pressure Mean [Right Arm] 102 Blood Pressure Source Blood Pressure Source [Right Arm] Automatic Cuff Blood Pressure Position [Right Arm] Sitting 02 Sat by Pulse Oximetry 94 L 98 Oxygen Delivery Method Room Air 01/07/25 12:30 01/07/25 13:00 01/07/25 14:30 Temperature Temperature Source Pulse Rate 63 64 60 Pulse Rate [Right] Respiratory Rate 17 Blood Pressure 142/78 H 159/82 H 147/79 H Blood Pressure [Right Arm] Blood Pressure Mean [Right Arm] Blood Pressure Source Blood Pressure Source [Right Arm] Blood Pressure Position [Right Arm] 02 Sat by Pulse Oximetry 96 99 96 Oxygen Delivery Method Room Air Room Air Room Air 01/07/25 15:10 01/07/25 15:30 Temperature 97.8 F Temperature Source Temporal Artery Scan Pulse Rate 60 61 Pulse Rate [Right] Respiratory Rate 17 16 Blood Pressure 136/75 Blood Pressure [Right Arm] Blood Pressure Mean [Right Arm] Blood Pressure Source Automatic Cuff Blood Pressure Source [Right Arm] Blood Pressure Position [Right Arm] 02 Sat by Pulse Oximetry Oxygen Delivery Method Room Air Lab Data Labs: Lab Results 01/07/25 13:43: WBC 4.9, RBC 3.69 L, Hgb 11.1 L, Hct 34.9 L, MCV 94.6, MCH 30.1, MCHC 31.8, RDW 12.3, Plt Count 218, MPV 9.8, Neut % (Auto) 72.4, Lymph % (Auto) 14.5, Andrews % (Auto) 10.9 H, Eos % (Auto) 1.6, Baso % (Auto) 0.4, Neut # (Auto) 3.5, Lymph # (Auto) 0.7, Andrews # (Auto) 0.5, Eos # (Auto) 0.1, Baso # (Auto) 0.0, Sodium 137, Potassium 4.2, Chloride 95 L, Carbon Dioxide 35 H, Anion Gap 11.2, BUN 14, Creatinine 0.80, Estimated Creat Clear 36, Estimated GFR 68, Est GFR ( Amer) 82, Glucose 100, Calcium 9.5, Total Bilirubin 0.5, AST 31, ALT 17, Alkaline Phosphatase 115, Troponin I < 0.01, Total Protein 8.2, Albumin 4.6, Globulin 3.6 H, Albumin/Globulin Ratio 1.3 Response Orders (Tests/Meds): ED MEDICATIONS Discontinued Medications Generic Name Dose Route Start Last Admin Trade Name Freq PRN Reason Stop Dose Admin Acetaminophen 1,000 mg 01/07/25 13:03 01/07/25 13:59 Acetaminophen 1,000mg/100ml Vial IV 01/07/25 13:04 1,000 mg ONCE ONE Administration Diphenhydramine HCl 50 mg 01/07/25 13:03 01/07/25 13:50 Diphenhydramine 50mg/Ml Vial IV 01/07/25 13:04 Not Given ONCE ONE Doxycycline Hyclate 100 mg 01/07/25 14:22 01/07/25 14:47 Doxycycline Hycl 100 Mg Tablet PO 01/07/25 14:23 100 mg ONCE ONE Administration Methylprednisolone Sodium Succinate 125 mg 01/07/25 13:03 01/07/25 13:51 Methylprednisolone Sod Succ 125mg Vial IV 01/07/25 13:04 Not Given ONCE ONE Sodium Chloride 3 ml 01/07/25 14:48 01/07/25 15:29 Sodium Chloride 3% 15ml Neb IH 02/06/25 14:47 3 ml ONCE PRN Administration INDUCE SPUTUM COLLECTION ORDERS Category Date Time Status CBC w/Auto Diff [Complete Blood Count Auto Diff] Stat Lab 01/07/25 13:43 Completed CMP [Comprehensive Metabolic Panel] Stat Lab 01/07/25 13:43 Completed Trop I [Troponin I] Stat Lab 01/07/25 13:43 Completed ECG Data Tracing #1: Attestation: I reviewed this ECG and interpreted as documented below: (AV paced rhythm 65 bpm with MI 175, QRS 190, QTc 467 with leftward axis. Left bundle morphology with V-paced rhythm. Sgarbossa negative) MDM Narrative Medical Decision Narrative: In summary patient is a 89-year-old female who presents to the emergency department for evaluation of right-sided chest pain. Patient is hemodynamically stable upon arrival, afebrile. Physical exam is remarkable for actually tenderness everywhere that I touched including places far away from her chest wall including her ankle her legs or wrists or hands. Thus physical exam is unreliable for reproducible chest pain. Breath sounds are diminished in the right lung bases but there is no adventitious sounds. Patient has no increased work of breathing she has no accessory muscle use she is satting at 98% on room air currently. Differential diagnosis includes pleuritic chest pain pneumothorax compressive atelectasis ACS etc. Initial workup will be conducted with hematologic labs twelve-lead EKG CT PE protocol. Initial interventions include Tylenol and Toradol. Initial workup reviewed by me and her hematologic labs are nonactionable with normal white count with no left shift and undetectable troponin and my informal interpretation of her previous imaging from December 31 of uncontrasted study shows mild to moderate pleural effusion but no lung collapse. However I did order CT PE protocol and premedicated the patient for reported jaws locking complaint to iodinated contrast and patient initially agreed however when it came time to do the CAT scan patient declined CAT scan. Given that I am unable to characterize any further chest imaging other than what is already been done as patient has stable vital signs no increased work of breathing satting at 100% on room air. I then had an interactive discussion with Dr. Babb of pulmonology regarding patient ZAIDI presentation and patient management. Patient has been referred to him by her PCP however her appointment appointment is in March. He did review her ZAIDI today as well as her previous imaging and he feels that the amount of effusion is not significant enough to explain her symptoms. He is concerned that she may have a compressive pneumonia. He recommended starting the patient on doxycycline and his office will contact her for a sooner appointment for further evaluation and care.. Given this I had interactive discussion with the patient and via shared decision making she feels safe going home with that plan with strict return precautions for any increasing fever increasing shortness of breath. Thus she is appropriate for discharge with strict return precautions close follow-up with her PCP and the pulmonology office will contact her on Friday with a new appointment. I was consulted by the LORI, and we discussed the complexity of the problems being addressed. I approved the treatment and management plan for this patient's care in the Emergency Department, thus performing a substantive portion of the medical decision making. David Mcrae MD
--- NOTE | 2025-01-07 12:09 | ECG_ITS ---
APPROVED REPORT Exam: Resting ECG HR:65 bpm ECG Measurements Heart Rate 65 AXES NV 175 P 35 QRSd 190 QRS -76 QT 456 T 97 QTc 467 Conclusion ELECTRONIC ATRIAL PACEMAKER ELECTRONIC VENTRICULAR PACEMAKER ABNORMAL RHYTHM ECG INTERPRETATION BASED ON A DEFAULT AGE OF 40 YEARS UNCONFIRMED REPORT Electronically signed by : SARA SINGER, 01/08/2025 06:26:35
--- NOTE | 2025-01-07 12:43 | PC.NURSE ---
Rajat Lucas PAC at bedside
--- NOTE | 2025-01-07 13:48 | PC.NURSE ---
pt is refusing to receive pre-medication meds for ct scan nor ct scan with contrast. Rajat Lucas & radiology notified of this.
[2025-01-07 13:51] LABS: Basophils % 0.4 % (0.1-2.0); Eosinophils # 0.1 K/mm3 (0.0-0.4); Eosinophils % 1.6 % (0.1-12.0); Hematocrit 34.9 % (37.0-47.0); Hemoglobin 11.1 g/dL (12.2-16.2); Lymphocytes # 0.7 K/mm3 (0.7-4.5); Lymphocytes % 14.5 % (10-50); Mean Corpuscular HGB Conc 31.8 g/dL (31.8-35.4); Mean Corpuscular Hemoglobin 30.1 pg (27.0-31.2); Mean Corpuscular Volume 94.6 fl (81-99); Mean Platelet Volume 9.8 fl (7.4-10.4); Monocytes # 0.5 K/mm3 (0.1-1.0); Monocytes % 10.9 % (1.7-9.3); Neutrophils # 3.5 K/mm3 (1.8-7.8); Neutrophils % 72.4 % (37.0-80.0); Platelet Count 218 K/mm3 (142-424); Red Blood Count 3.69 M/mm3 (4.20-5.40); Red Cell Distribution Width 12.3 % (11.5-17.5); White Blood Count 4.9 K/mm3 (4.8-10.8)
[2025-01-07 13:58] LABS: Albumin Level 4.6 g/dl (3.5-5.0); Chloride 95 mmol/L (98-107); Potassium 4.2 mmoL/L (3.5-5.1); Sodium 137 mmol/L (136-145)
[2025-01-07] MEDS: ACETAMINOPHEN 1,000MG/100ML VIAL 1000 MG IV (13:59)
[2025-01-07 14:00] LABS: Blood Urea Nitrogen 14 mg/dl (7-17); Creatinine Clearance Estimated 36 mL/min (50-200); Estimated Glomerular Filt Rate 68 ml/min (>60); GFR (African American) 82 ML/MIN (>60)
[2025-01-07 14:01] LABS: Alanine Aminotransferase 17 U/L (12-78); Albumin/Globulin Ratio 1.3 (1.1-1.8); Alkaline Phosphatase 115 U/L (38-126); Anion Gap 11.2 mEq/L (5-15); Aspartate Amino Transferase 31 U/L (14-36); Bilirubin,Total 0.5 mg/dl (0.2-1.3); Calcium 9.5 mg/dl (8.4-10.2); Carbon Dioxide 35 mmol/L (22.0-30.0); Globulin 3.6 g/dL (1.3-3.2); Glucose 100 mg/dl (74-100); Total Protein,Serum 8.2 g/dl (6.3-8.2)
--- NOTE | 2025-01-07 14:20 | PC.NURSE ---
Rajat Lucas [facility] s/w Dr De Leon
[2025-01-07 14:22] LABS: Troponin I < 0.01 ng/ml (0.00-0.034)
[2025-01-07] MEDS: DOXYCYCLINE HYCL 100 MG TABLET PO (14:47)
--- NOTE | 2025-01-07 15:23 | PC.NURSE ---
Attempted to obtain sputum culture, gave saline neb treatment to induce sputum production.
[2025-01-07] MEDS: SODIUM CHLORIDE 3% 15ML NEB 3 ML IH (15:29)
[2025-01-10 06:09] LABS: Neisseria gonorrhoeae, NAA Negative (Negative)
== END 2025-01-07 15:47 | disposition home or self-care (01) ==
PROVIDERS: Physician Assistant; Emergency Provider Emergency Medicine
DX: J90 Pleural effusion, not elsewhere classified (principal); R07.9 Chest pain, unspecified
CPT/HCPCS: 80053; 84484; 85025; 87491; 87591; 93005; 96374; 99283; J0131

== ENCOUNTER 2025-01-12 11:11 | Outpatient (CLI) | payer MEDICARE, OTHER, SELFPAY ==
--- NOTE | 2025-01-16 08:34 | PC.NURSE ---
sputum culutre results discussed with , pt dc with appropriate antibiotics, lab notified of lab drop off and finalized and pcp can see results.
--- NOTE | 2025-01-18 14:06 | PC.NURSE ---
sputum culture discussed with dr reyes, no new orders
== END 2025-01-12 23:59 | disposition home or self-care (01) ==
LOC: LAB.DROPOF 11:15
PROVIDERS: PCP Physician Assistant; Visit Provider Internal Medicine Adolescent Medicine
DX: J90 Pleural effusion, not elsewhere classified (principal)
CPT/HCPCS: 87070; 87077; 87186; 87205

== ENCOUNTER 2025-01-19 11:18 | Outpatient (CLI) | payer MEDICARE, OTHER, SELFPAY ==
[2025-01-19 13:17] LABS: PHA INR Fingerstick 3.1 (0.9-1.1)
== END 2025-01-19 13:21 ==
LOC: ACC 11:19
PROVIDERS: PCP Internal Medicine Adolescent Medicine; Visit Provider Internal Medicine Adolescent Medicine
DX: Z79.01 Long term (current) use of anticoagulants (principal); I48.91 Unspecified atrial fibrillation
CPT/HCPCS: 85610; 99211; G0463

== ENCOUNTER 2025-01-28 12:06 | Outpatient (CLI) | payer MEDICARE, OTHER, SELFPAY ==
[2025-01-28 13:08] LABS: Lactate Dehydrogenase 210 U/L (313-618)
[2025-01-28 13:14] LABS: C-Reactive Protein 6.6 mg/L (0-4)
[2025-02-01 20:17] LABS: QuantiFERON-TB Gold Plus Negative (Negative)
[2025-02-03 16:22] LABS: Aspergillus flavus Negative (Neg:<1:1); Aspergillus fumigatus Negative (Neg:<1:1); Aspergillus niger Negative (Neg:<1:1); Blastomyces Antibody Negative (Neg:<1:1); Histoplasma Antibody Quant Negative (Neg:<1:1)
== END 2025-01-28 23:59 | disposition home or self-care (01) ==
LOC: LAB 12:08
PROVIDERS: PCP Internal Medicine Adolescent Medicine; Visit Provider Internal Medicine Pulmonary Disease
DX: R91.8 Other nonspecific abnormal finding of lung field (principal); R91.1 Solitary pulmonary nodule; J84.10 Pulmonary fibrosis, unspecified; J90 Pleural effusion, not elsewhere classified; R06.09 Other forms of dyspnea
CPT/HCPCS: 36415; 83615; 86140; 86480; 86606; 86612; 86698

== ENCOUNTER 2025-02-08 09:56 | Outpatient (CLI) | payer MEDICARE, OTHER, SELFPAY ==
--- NOTE | 2025-02-08 10:00 | US_ITS ---
FINAL REPORT CLINICAL HISTORY: Effusion - indra melvin - 450 ml removed -- rt side FINDINGS: ULTRASOUND-GUIDED THORACENTESIS HISTORY: Pleural effusion. ATTENDING PHYSICIAN: Dr. Robledo PHYSICIAN ANTHROPOLOGY INSTRUCTOR: Indra Guillermo PA-C TECHNIQUE: Informed consent was obtained from the patient. The indications and complications were discussed with the patient prior to beginning the procedure. This included, but was not limited to pain, bleeding, infection, and pneumothorax requiring chest tube placement. The left back was then prepped and draped in sterile fashion. 1% Lidocaine was used for local anesthesia. Utilizing sonographic guidance, a standard thoracentesis needle and sheath were inserted into the pleural space and approximately 400 mL of clear pleural fluid was successfully removed without complication. The patient tolerated the procedure well. IMPRESSION: Technically successful sonographic guided left-sided thoracentesis as above. Reviewed, Interpreted and Dictated by Celine Robledo MD Transcribed by FROYLAN Rodas Authenticated and [facility]
[2025-02-08 10:19] VITALS: BMI 20.3
--- NOTE | 2025-02-08 11:06 | XR_ITS ---
FINAL REPORT CLINICAL HISTORY: post thorocentesis COMPARISON: 12/16/2024 FINDINGS: PA and lateral views of the chest were obtained. The left pacemaker noted on the prior exam remains present. The cardiac and mediastinal silhouettes are within normal limits. Changes of emphysema are present. There is a right infrahilar opacity noted, stable, likely scar. There is no significant pleural effusion or pneumothorax. No acute osseous abnormality is identified. IMPRESSION: No radiographic evidence of acute cardiac or pulmonary disease. No evidence of pneumothorax is noted postthoracentesis. Reviewed, Interpreted and Dictated by Celine Robledo MD Transcribed by Shelbi Gonsales Authenticated and [facility]
[2025-02-08 11:20] VITALS: BP 160/89; PULSE 61; RESP 16; O2SAT 97
[2025-02-08 11:35] VITALS: BP 155/76; PULSE 61; RESP 16; O2SAT 98
[2025-02-08 11:50] VITALS: BP 159/85; PULSE 60; RESP 16; O2SAT 98
[2025-02-08 12:05] VITALS: BP 162/84; PULSE 60; RESP 16; O2SAT 98
[2025-02-08 12:13] LABS: Appearance,Body Fld. Hazy; Mononuclear WBCs,Body Fluid 83 %; Polynuclear WBC,Body Fluid 17 %; RBC,Body Fluid 1000 cells/uL (< 10 X 10^3); Source, Body Fld. Thoracentesis Fluid; TNC,Body Fluid 1146 cells/uL (< 1000); Volume,Body Fld. 450 mL
[2025-02-08 12:20] VITALS: BP 116/84; PULSE 64; RESP 16; O2SAT 98
--- NOTE | 2025-02-08 14:13 | PC.NURSE ---
1145- pt sitting up eating and drinking. Tolerated well. 1220-- pt up and dressed w/assistance. 1225-pt to the bathroom w/assistance was able to void w/o difficulty.
[2025-02-09 12:48] LABS: LD, Body Fluid 119 IU/L (.); Protein, Body Fluid 3.9 g/dL (.)
== END 2025-02-08 23:59 | disposition home or self-care (01) ==
PROVIDERS: PCP Internal Medicine Adolescent Medicine; Visit Provider Internal Medicine Pulmonary Disease
DX: J90 Pleural effusion, not elsewhere classified (principal); R06.09 Other forms of dyspnea; J18.9 Pneumonia, unspecified organism
CPT/HCPCS: 32555; 71046; 83615; 84155; 87070; 87116; 87186; 87206; 88112; 88305; 89051

== ENCOUNTER 2025-02-16 11:56 | Outpatient (CLI) | payer MEDICARE, OTHER, SELFPAY ==
[2025-02-16 12:17] LABS: PHA INR Fingerstick 2.6 (0.9-1.1)
== END 2025-02-16 12:18 ==
LOC: ACC 11:57
PROVIDERS: PCP Internal Medicine Adolescent Medicine; Visit Provider Internal Medicine Adolescent Medicine
DX: J18.9 Pneumonia, unspecified organism (principal); Z79.01 Long term (current) use of anticoagulants; I48.91 Unspecified atrial fibrillation
CPT/HCPCS: 85610; 87070; 87077; 87186; 87205; 99211; G0463

== ENCOUNTER 2025-03-30 09:50 | Outpatient (CLI) | payer MEDICARE, OTHER, SELFPAY ==
--- OUTSIDE RECORDS SUMMARY | 2025-03-30 09:53 | XMS_ITS | Data Portability ---
Author Organization [place] REBA Sherman ELLINGER CLOSED Address [address] [facility] [address] [place] [address] Care Team Providers Care Equipment Worker Name Role Phone JOE MORRIS Primary Care Provider [phone] Assessment No assessment recorded. Plan of Treatment Reminders Order Date Submit Date Provider Last Modified By Organization Details Last Modified Time Details Appointments None recorded. Lab None recorded. Referral None recorded. Procedures pacemaker check (PROC) 2018 019 DARION [place] [address], [facility], [place], [address], 9 11:22:51 Surgeries None recorded. Imaging electrocard iogram 2018 019 [email or web address] [place] [address], [facility], [place], [address], 9 11:10:04 Medication Orders None recorded. Patient TargetsNo targets recorded. Patient Instructions Encounter Date Encounter Id Patient Instructions Last Modified By Organization Details Last Modified Time 09/16/2019 [id number] shortness of breath: care instructions [email or web address] Not available 09/16/2019 11:01:55 Reason for Referral None Reported. Results Created Date Observation Date Name Description Value Unit Range Abnormal Flag Note LastModifiedBy Organization Detail LastModifiedTime 09/17/2009/16/2019 pacem bonnie check (PROC ) No observ ation record ed. BARCODE [place] [id number] [facility], [place], [address], 09/17/2019 11:55:20 09/20/2009/16/2019 [email or web address] levine am No observ ation record ed. [email or web address] [facility] [address], [place], [address], 09/20/2019 08:57:38 09/22/20 19 09/16/2019 elect rafa levine am No observ ation record ed. [facility] [address], [place], [address], 09/22/2019 15:16:41 Result Notes None recorded. Problems Name Problem SNOMED Code Status Onset Date Resolution Date Notes Provider Name and Address Organization Details Recorded Time Clinical finding Active 2015 From Automated Load;Prov ider: Edgardo Cox;S tatus: Active Not Available [facility] 7 02:34:07 Pelvic and perineal pain 123570308 Active 2015 From Automated Load;Prov ider: Edgardo Cox;S tatus: Active Not Available [facility] 7 06:48:32 Paroxysma l atrial fibrillat ion 019835025 Active 2018 A FLUTTER AND AT ALSO REPORTED ON RECORDS JESUS ANDERSEN MD [address] [place] [address], [address] , [facility] 9 07:44:01 Permanent cardiac pacemaker 77232079674 9102 Active 2018 JESUS ANDERSEN MD [address] [place] [address], [address] , [facility] 9 07:42:23 Mitral valve prolapse 725611967 Active 2018 AMVL JESUS ANDERSEN MD [address] [place] [address], [address] , [facility] 9 07:43:00 Chronic obstructi ve pulmonary disease 89561621 Active 2018 JESUS ANDERSEN MD [address] [place] [address], [address] , [facility] 9 07:43:11 Dyslipide james 400180571 [place] [address] [place] [address], [address] , [facility] 9 07:43:23 Hypertens petra disorder 35686749 Active 2018 JESUS ANDERSEN MD [address] [place] [address], [address] , [facility] 9 07:43:32 Sick sinus syndrome 75602328 Active 2018 JESUS ANDERSEN MD [address] [place] [address], [address] , [facility] 9 07:43:44 Problem Notes None recorded. Procedures Surgical History Date Name Laterality Status Provider Name and Address Organization Details Recorded Time 12/08/19 15 Pacemaker completed [facility] 09/16/2019 10:43:33 09/18/20 09 cataract surgery completed [facility] 09/16/2019 10:40:57 08/17/20 09 cataract surgery completed [facility] 09/16/2019 10:40:44 08/17/20 07 colonoscopy completed [facility] 09/16/2019 10:41:09 11/22/18 86 Cholecystectomy completed [facility] 09/16/2019 10:41:25 11/23/18 85 hysterectomy completed [facility] 09/16/2019 10:42:02 11/17/18 80 procedure on foot completed [facility] 09/16/2019 10:42:27 11/19/18 55 tonsillectomy completed [facility] 09/16/2019 10:42:58 Appendectomy completed [facility] 09/16/2019 10:43:05 Imaging Results Imaging Date Name Status LastModified by Organization Details LastModified Time 09/16/2019 pacemaker check (PROC) completed [facility] [address], [place], [address], 09/17/2019 11:55:20 09/16/2019 electrocardiogram completed [email or web address] [facility] [address], [place], [address], 09/20/2019 08:57:38 09/16/2019 electrocardiogram completed [email or web address] [facility] [address], [place], [address], 09/22/2019 15:16:41 Procedure Notes None recorded. Medical Equipment Implant SANDR[employer] Issuing Agency Serial Number Lot Number Status Provider Name and Address Organization Details Recorded Time [employer] [id number] [employer] Agnieszka Watson [facility] 10/27/2018 08:55:56 Allergies Allergen ID Allergen Name Allergen Category Reaction Reaction Severity Criticality Documentation Date Start Date Code Code System Note Provider Name and Address Organization Details Recorded Time 834164 Product containin g penicilli n (product) medicatio n Not available Not available Not available 10/10/20162009 08534 8001 SNOMED Comme nt: Creat ed By: Ivone sommer;Cre ated Date: 3:17: 50 PM; Not Available [facility] 6 10:20:26 454692 vitamin K1 medicatio n Not available Not available Not available 10/10/20162009 8308 RxNorm Comme nt: Creat ed By: Ivone sommer;Cre ated Date: 3:19: 03 PM; Not Available [facility] 6 10:20:26 052043 Percodan medicatio n Not available Not available Not available 10/10/20162009 41562 RxNorm Comme nt: Creat ed By: Ivone sommer;Cre ated Date: 3:19: 27 PM; Not Available [facility] 6 10:20:26 152698 codeine medicatio n Not available Not available Not available 10/10/20162009 2670 RxNorm Comme nt: Creat ed By: Ivone sommer;Cre ated Date: 3:17: 27 PM; Not Available [facility] 6 11:31:45 017035 Biaxin medicatio n Not available Not available Not available 10/10/2016200972 9 RxNorm Comme nt: Creat ed By: Ivone sommer;Cre ated Date: 3:19: 14 PM; Not Available [facility] 6 11:31:45 125112 lovastati n / niacin medicatio n Not available Not available Not available 10/10/20162009 10626 7 RxNorm Comme nt: Creat ed By: Ivoen sommer;Cre ated Date: 3:19: 37 PM; Not Available [facility] 6 11:46:40 492120 Claritin medicatio n Not available Not available Not available 10/10/2016200957 6 RxNorm Comme nt: Creat ed By: Ivone sommer;Cre ated Date: 3:20: 30 PM; Not Available [facility] 6 11:46:40 881260 Substance with sulfonami de structure and antibacte rial mechanism of action (substanc e) medicatio n Not available Not available Not available 10/10/20162009 23831 8003 SNOMED Comme nt: Creat ed By: Ivone sommer;Cre ated Date: 3:20: 54 PM; Not Available [facility] 6 11:46:40 502946 Cortizone medicatio n Not available Not available Not available 10/10/20162009 71719 40 RxNorm Comme nt: Creat ed By: Ivone sommer;Cre ated Date: 3:18: 18 PM; Not Available [facility] 6 13:35:35 330108 Radha medicatio n Not available Not available Not available 10/10/20162009 73585 6 RxNorm Comme nt: Creat ed By: Ivone sommer;Cre ated Date: 3:20: 43 PM; Not Available [facility] 6 13:35:35 302383 Cipro medicatio n other Not available Not available 10/11/2016200956 3 RxNorm Comme nt: Creat ed By: Ivone sommer;Cre ated Date: 3:19: 47 PM; Not Available [facility] 6 08:19:36 200297 tetracycl ine hydrochlo ride medicatio n Not available Not available Not available 04/09/20172015 45645 6 RxNorm Comme nt: Creat ed By: Pepe Spivey ;Crea lisa Date: 2015 4:34: 27 PM; Not Available [facility] 7 03:48:27 986419 doxycycli ne monohydra te medicatio n other Not available Not available 04/09/2017201512 2 RxNorm React ion: OTHER ; Comme nt: Creat ed By: Pepe Spivey ;Crea lisa Date: 2015 4:33: 37 PM; Not Available [facility] 7 03:48:27 029192 hydrocort isone medicatio n Not available Not available Not available 09/16/2019 5492 RxNorm [facility] 9 10:44:27 402031 fexofenad ine medicatio n Not available Not available Not available 09/16/2019 71354 RxNorm Cinthia Damaris null, [facility] 9 10:44:35 030852 ioxaglic acid Not available Not available Not available Not available 09/16/2019 03054 58 RxNorm Cinthia Damaris null, [facility] 9 10:44:42 636902 loratadin e medicatio n Not available Not available Not available 09/16/2019 59706 RxNorm [facility] 9 10:44:50 010446 rofecoxib medicatio n Not available Not available Not available 09/16/2019 84887 8 [facility] 9 10:45:06 011784 tetracain e medicatio n Not available Not available Not available 09/16/2019 48346 RxNorm [facility] 9 10:45:21 486725 azithromy octavia medicatio n other Not available Not available 09/16/2019 46554 [facility] 9 10:46:32 697160 OsCal 500 medicatio n other Not available Not available 09/16/2019 91957 9 [facility] 9 10:46:47 615700 cefuroxim e Not available other Not available Not available 09/16/2019 2194 [facility] 9 10:47:09 592775 cerivasta tin medicatio n other Not available Not available 09/16/2019 55506 3 [facility] 9 10:47:27 815384 erythromy octavia medicatio n other Not available Not available 09/16/2019 4053 [facility] 9 10:47:51 315418 lovastati n medicatio n other Not available Not available 09/16/2019 6472 [facility] 9 10:48:18 129638 niacin medicatio n other Not available Not available 09/16/2019 7393 [facility] 9 10:48:26 001711 vitamin K1 medicatio n other Not available Not available 09/16/2019 8308 [facility] 9 10:48:46 531892 vitamin K2 medicatio n other Not available Not available 09/16/2019 27211 RxNorm Cuca Diaz null, [facility] 9 10:49:19 132987 cortisone medicatio n other Not available Not available 09/16/2019 2878 RxNorm swell ing [facility] 9 10:49:53 154158 aspirin medicatio n other Not available Not available 09/16/2019 1191 RxNorm hyper Cuca Diaz null, [facility] 9 10:50:14 131547 clarithro mycin medicatio n diarrhea Not available Not available 09/16/2019 70847 RxNorm [facility] 9 10:50:33 043246 oxycodone medicatio n other mild Not available 09/16/2019 7804 RxNorm hyper [facility] 9 10:50:52 34119 Baycol medicatio n Not available Not available Not available 10/10/20162009 02621 7 RxNorm Comme nt: Creat ed By: Ivone banuelosCre ated Date: 3:19: 59 PM; Not Available [facility] 6 10:09:37 35287 Vioxx medicatio n Not available Not available Not available 10/10/20162009 38748 9 RxNorm Comme nt: Creat ed By: Ivone banuelosCre ated Date: 3:20: 08 PM; Not Available [facility] 6 10:09:37 45355 Iodinated contrast media (substanc e) medicatio n Not available Not available Not available 10/10/20162009 15384 2004 SNOMED Comme nt: Creat ed By: Ivone sommer;Cre ated Date: 3:17: 40 PM; Not Available [facility] 6 10:09:37 31468 E-Mycin medicatio n Not available Not available Not available 10/10/20162009 06200 8 RxNorm Comme nt: Creat ed By: Ivone Escamilla ated Date: 010 3:18: 38 PM; Not Available [facility] 6 10:09:37 Medications Name Sig Start Date Stop Date Status Note LastModified by Organization Details LastModified Time Dilaudid 2 mg tablet As Directed 09/16 completed Frequenc y: as direct.; Medicati on Descript ion: hydromor phone; Dosage:1 ; Route:or al; refills: 0; Quantity :6 tablet Not Available Not Available Not Available torsemide 20 mg tablet Take 1 tablet every day by oral route as needed. active Not Available Not Available No t Available Klor-Con 10 mEq tablet,ex tended release 09/16 completed Medicati on Descript ion: potassiu m chloride ; Route:or al; refills: 0 Not Available Not Available Not Available warfarin 7.5 mg tablet Take 1 tablet every day by oral route. active Not Available Not Available No t Available metoprolo l succinate ER 100 mg tablet,ex tended release 24 hr Two times a day 09/16 completed Frequenc y: bid;Medi cation Descript ion: metoprol ol; Dosage:1 /2; Route:or al; refills: 11; Quantity :30 tablet, extended release Not Available Not Available Not Available Reglan 10 mg tablet with meals 09/16 completed Frequenc y: with meals;Al t Frequenc y: hs;Medic ation Descript ion: metoclop ramide; Dosage:1 ; Route:or al; refills: 0; Quantity :120 tablet Not Available Not Available Not Available tramadol 50 mg tablet Take 1 tablet every 6 hours by oral route as needed. active Not Available Not Available No t Available sotalol 120 mg tablet Take 1 tablet twice a day by oral route. active Not Available Not Available No t Available potassium chloride 20 mEq/15 mL oral liquid Take 15 mL every day by oral route. active Not Available Not Available No t Available pantopraz ole 20 mg tablet,de layed release Take 1 tablet every day by oral route. active Not Available Not Available No t Available alprazola m 0.5 mg tablet Take 1 tablet twice a day by oral route. active Not Available Not Available No t Available Lidoderm 5 % topical patch As Directed 09/16 completed Frequenc y: as direct.; Medicati on Descript ion: lidocain e topical; Dosage:1 ; Route:to pical; refills: 0; Quantity :30 patch Not Available Not Available Not Available Neurontin 100 mg capsule Three times a day 09/16 completed Duration : 30 days;Timothy quency: tid;Medi cation Descript ion: gabapent in; Dosage:1 ; Route:or al; refills: 0; Quantity :90 capsule Not Available Not Available Not Available Tylenol 325 mg tablet As needed 09/16 completed Duration : 30 days;Timothy quency: prn;Medi cation Descript ion: acetamin ophen; Dosage:1 ; Route:or al; refills: 0 Not Available Not Available Not Available aspirin 81 mg tablet Two times a day 09/16 completed Duration : 30 days;Timothy quency: bid;Medi cation Descript ion: aspirin; Dosage:1 ; Route:or al; refills: 0; Quantity :30 tablet Not Available Not Available Not Available digoxin 125 mcg (0.125 mg) tablet Take 0.5 tablets every day by oral route. active Not Available Not Available No t Available Tegretol 200 mg tablet Take 1 tablet every day by oral route at bedtime. active Not Available Not Available No t Available Lanoxin 250 mcg (0.25 mg) tablet Daily 09/16 completed Duration : 30 days;Ins truction s: TAKE ONE TABLET BY MOUTH EVERY DAY no further refills until appointm ent made;Timothy quency: daily;Me dication Descript ion: digoxin; Dosage:1 ; Route:or al; refills: 1; Quantity :30 tablet Not Available Not Available Not Available Tylenol Extra Strength 500 mg tablet Take 1 tablet every 4 hours by oral route as needed. active Not Available Not Available No t Available Anoro Ellipta 62.5 mcg-25 mcg/actua tion powder for inhalatio n Inhale 1 puff every day by inhalati on route. active Not Available Not Available No t Available Vitals Date Recorded Body height Body mass index (BMI) Body weight Heart rate Systolic blood pressure Diastolic blood pressure Provider Name and Address Organization Details Last Updated DateTime 9 170.18 cm 23.2 kg/m2 86729.6 7 g 74 /min 128 mm[Hg] 86 mm[Hg] Cinthia Ocampo [facility] 9 10:26:06 Social History Question Answer Notes LastModified by Organizat ion Details LastModified Time Tobacco Smoking Status Never Smoker Cinthia Ocampo [facility] 09/16/2019 10:23:04 How Much Tobacco Do You Chew? None Information not available 09/16/2019 Which Illicit Or Recreational Drugs Have You Used? None Per Patient Information not available 09/16/2019 Live Alone Or With Others? With Others Information not available 09/16/2019 Marital Status Informatio n not available 09/16/2019 How Many Children Do You Have? 4 Information not available 09/16/2019 Sex: Unknown Functional Status Question Answer Note LastModified by Organizat ion Details LastModified Time What is your level of alcohol consumption? None Information not available 09/16/2019 Do you or have you ever used smokeless tobacco? Never used smokeless tobacco Information not available 09/16/2019 What is your occupation? Retired Information not available 09/16/2019 Do you or have you ever used e-cigarettes or vape? Never used electronic cigarettes Information not available 09/16/2019 Mental Status None recorded. Family History Relationship Description Onset Age of this Age Resolved Age Notes LastModified by Organization Details LastModified Time Father Family history of malignant neoplasm 69 [email or web address] Not available 2018 10:23:49 Sister Family history of malignant neoplasm [email or web address] Not available 2018 10:23:49 Brother Family history of malignant neoplasm [email or web address] Not available 2018 10:23:49 Mother Heart disease 85 [email or web address] Not available 2018 10:24:02 Medical History No medical history recorded. Gynecological HistoryNo gynecological history recorded. 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 She has had chronic COPD but reports worsening dyspnea in the last 12 months or less. Echocardio graphy does show associated mitral regurgitat ion which can be precipitat ed by LV dyssynchro ny. I've discussed the potential for an upgrade of her device but I'm unable to promise that this will improve her dyspnea in this clinical situation where there is preserved left ventricula r systolic function and associated lung disease. She is going to give this some further considerat ion and will contact me should she be inclined to pursue this option. Discussed indication s and procedural details of device implantati on with the patient. The patient understand s and accepts that potential complicati ons include, but are not limited to: , perforatio n, need for emergency surgery, bleeding, pneumothor ax, lead dislodgeme nt, device failure/ma lfunction and wound infection. Health Concerns Section Related Observation LastModified by Organization Detai ls LastModified Time None Recorded Concern Status LastModified by Organization Details LastModified Time None Recorded Advance Directives Directive None Recorded Payers Insurance Date Sequence Insurance Name Policy Number Policy Smith Covered Member ID Smith Member ID Guarantor Name 09/17/2019 2 [facility] (MEDICARE SUPPLEMENT) Tran Peguero [id number] Tran Peguero 09/16/2019 1 [place] Tran Peguero [id number] Tran Peguero Notes Date Note Type Note Provider Name and Address Organization Details Recorded Time 9 text/html Mrs. Peguero is an 83-year-old white female seen in consultation at the request of Dr. Galvan for a biventricular pacemaker upgrade. She has a diagnosis of sick sinus syndrome and has received a dual-chamber pacemaker in May 1996. The generator was replaced in January of 2009.. She has a diagnosis of paroxysmal atrial fibrillation. Records document a diagnosis of atrial flutter and atrial tachycardia as well. She has a history of hypertension and hyperlipidemia. An echo in May of this year demonstrated an ejection fraction of 50%. There was an abnormal left atrial volume index and sclerotic aortic valve leaflets with mild aortic regurgitation, mild to moderate mitral regurgitation, and moderate tricuspid regurgitation. The estimated right ventricular systolic pressure was 46 mmHg. Right ventricular function was normal. The patient has continued problems with dyspnea on exertion that she says have worsened over the last year or last. She does sleep with 2 pillows and rarely awakens with a smothering sensation. She does suffer from COPD due to secondary smoke exposure. Pulmonary function testing 2017 showed moderately severe obstructive airway disease and mild neuromuscular disease. The patient has been assessed by 2 previous electrophysiologists. One adjusted her AV delays for more physiologic pacing. She states that this did not result in a significant improvement in her complaints of dyspnea. The patient was then seen in consultation by another pleat patternmaker who recommended continued medical management. The patient was not satisfied with the management plan and consultation has been requested as there is a concern for persistent LV dyssynchrony being the etiology for her functional impairment. JESUS ANDERSEN MD [address] [place] [address], [phone], [facility] 09/16/2019 11:03:19 OBGyn Episode No OBEpisode recorded.
[2025-03-30 10:53] LABS: PHA INR Fingerstick 2.7 (0.9-1.1)
[2025-03-30 11:10] LABS: Anion Gap 5.6 mEq/L (5-15); Blood Urea Nitrogen 15 mg/dl (7-17); Calcium 9.2 mg/dl (8.4-10.2); Carbon Dioxide 33 mmol/L (22.0-30.0); Chloride 98 mmol/L (98-107); Estimated Glomerular Filt Rate 68 ml/min (>60); GFR (African American) 82 ML/MIN (>60); Glucose 95 mg/dl (74-100); Potassium 3.6 mmoL/L (3.5-5.1); Sodium 133 mmol/L (136-145)
== END 2025-03-30 10:54 ==
LOC: ACC 09:52
PROVIDERS: Internal Medicine Cardiovascular Disease; PCP Internal Medicine Adolescent Medicine; Visit Provider Internal Medicine Adolescent Medicine
DX: Z79.01 Long term (current) use of anticoagulants (principal); I48.91 Unspecified atrial fibrillation
CPT/HCPCS: 36415; 80048; 85610; 99211; G0463

== ENCOUNTER 2025-04-27 09:47 | Outpatient (CLI) | payer MEDICARE, OTHER, SELFPAY ==
--- OUTSIDE RECORDS SUMMARY | 2025-03-02 11:00 | XMS_ITS | Encounter Summary ---
Author Organization [employer] Address [address] [place] [address] Care Team Providers Care Packing Room Supervisor Name Role Phone Niranjan Mccarty MD Primary Care Provider [phone] Reason for Visit * Reason Comments Follow-up Six month f/u Encounter Details Date Type Department Care Team (Late st Contact Info) Description 03/02/2025 11:00 AM EDT Office Visit [facility] Electrophysiology [address] [facility] [address] [place] [address] [place] [address] [place] [address] [address] [place] [id number] Encounter for adjustment or management of cardiac device (Primary Dx); Paroxysmal atrial fibrillation (HCC); CHB (complete heart block) (HCC) Social History Tobacco Use Types Packs/Day Years Used Date Smoking Tobacco: Never Smokeless Tobacco: Never Tobacco Cessation:Counseling Given: Not Answered Alcohol Use Standard Drinks/Week Comments Not Currently 0 (1 standard drink = 0.6 oz pur e alcohol) Interpersonal Safety Answer Date Record ed Family or friends hurt you Not on file 11/28 Family or friends insult you Not on file 10/2024 Family or friends threaten you Not on file 0 11/28/2023 Family or friends scream or curse at you Not on file 11/28/2023 Housing Stability Answer Date Recorded Living situation today Not on file Living situation problems Not on file 2023 Family and Community Support Answer Sp e Recorded Help with Day to Day Activities Not on file 11/28/2023 Feeling Lonely or Isolated Not on file 11/28 Educational Attainment Answer Date Garrett rded Speak language other than Sinhala at home Not on file 11/28/2023 Want help with school or training Not on file 11/28/2023 Depression Answer Date Recorded PHQ-2 Risk Not on file 11/28/2023 Disabilities Answer Date Recorded Difficulty concentrating Not on file 024 Difficulty doing errands alone Not on file 0 11/28/2023 Substance Use Answer Date Recorded Used prescription meds for non-medical reasons N ot on file 11/28/2023 Used illegal drugs past 12 months Not on file 11/28/2023 Comments No Sex and Gender Information Value Date Recorded Sex Assigned at Not on file Legal Sex Female 1:32 PM CDT Gender Identity Not on file Sexual Orientation Not on file documented as of this encounter Last Filed Vital Signs Vital Sign Reading Time Taken Comments Blood Pressure 135/85 03/02/2025 11:59 AM EDT Pulse 61 03/02/2025 11:59 AM EDT Temperature - - Respiratory Rate - - Oxygen Saturation 97% 03/02/2025 11:59 AM EDT Inhaled Oxygen Concentration - - Weight 58.8 kg (129 lb 9.6 oz) 03/02/2025 11:59 AM EDT Height 170.2 cm (5' 7 ) 03/02/2025 11:59 AM EDT Body Mass Index 20.3 03/02/2025 11:59 AM EDT documented in this encounter Progress Notes * Adrienne Dunn MD - 03/02/2025 11:00 AM EDT Chief Complaint: Chief Complaint Patient presents with Follow-up Six month f/u History of Present Illness: Patient is an 89- year- old female with PMH of afib, A flutter, SSS, PPM (Medtronic), HTN, HLD, Osteoarthritis, CHF, and COPD. Her atrial fibrillation has been controlled with sotalol and digoxin. She is on Coumadin for anticoagulation. Patient reports having frequent episodes of her heart racing with no activity, and her heart beating harder than normal based on her activity. She also has episodes when she feels very hot and SOB. She reports today that recently after walking around her house she sat down and believes she passed out for a couple of seconds. She states she open her eyes and was still sitting straight up and was having no other symptom. She complains of sharp abrupt atypical chest pain lasting seconds in duration. She also reports having ankle edema and was told by her primary care physician she has arthritis which is causing swelling. She complains of pain in her back and legs. She also reports having frequent nausea, no vomiting. It will be her third incision. Her atrial lead threshold is on the higher side however will not replace her lead. Ms. Peguero returns to clinic today following Medtronic generator replacement on 06/12/2021. Patient continues to have shortness of air and SIEGEL and states she had an episode of dizziness and near syncope on 06/16/2021 which resulted in her calling 911. She states that she used a finger pulse oximeter to check her oxygen level and heart rate which showed a heart rate of 83, and O2 level of 87%. Her symptoms resolved after about 10 minutes and were nearly resolved by the time EMS arrived. She was not transported to the hospital. Wound check shows well approximated incision without signs or symptoms of infection, or erythema. Device interrogation shows appropriately functioning medtronic dual-chamber pacemaker. EKG today shows AV paced rhythm, heart rate 60. She presented today for follow up on 09/19/2021. She reports that recently she was seen in the ER on08/23/2021 and treated fro COPD exacerbation. She reports doing better overall, still has SIEGEL. She is on home O2. Ms. Peguero returned to clinic on 05/01/2022 for follow-up. She denies complaints of chest discomfort, dizziness, syncope, SOA, PND or orthopnea. She does state that she has occasional episodes of palpitations that only last a few seconds. Most predominantly they occur when she lays down at night. Device interrogation shows appropriately functioning dual-chamber Medtronic PPM. Medications reviewed with patient, we recommend continue current medical therapy. EKG today showed AV sequential paced rhythm, heart rate 61. Mrs. Peguero presents today for follow-up on 10/23/2022. She complains of having cold feet and dry skin. Denies chest pain no shortness of breath no palpitations has bilateral nonpitting lower limb edema. Device interrogation shows no A. Fib. EKG shows AV sequential paced rhythm. Ms. Peguero returns to EP clinic on 02/19/2023 for follow-up she reports that she had a syncopal spellrecently in December 2022, she said she bent over and then when she got up she lost consciousness, she denies palpitations no chest pain no shortness of breath, she has chronic bilateral lower limb edema. Device interrogation shows atrial paced rhythm ventricular paced rhythm more than 90% no events, twelve-lead EKG shows dual AV paced rhythm. returns to EP clinic for follow-up on 10/15/2023. She reports fatigue she has bilateral lower limb edema which is chronic. Denies palpitations no chest pain no significant shortness of breath. She had an echocardiogram that showed left ventricular action fraction 45 to 50% mild MR. She has frequent RV pacing. Ms. Peguero returns to EP clinic for follow-up on 04/26/2024, patient has no complaints denies chest pain or shortness of breath and palpitations, she had an echocardiogram that showed ejection fraction was 45 to 50% with mild MR she continues to have frequent RV pacing, twelve-lead EKG today shows ventricular pacing. presented to EP clinic for follow-up on 03/02/2025, patient reports that she recently had thoracentesis for right-sided pleural effusion, she was also diagnosed with skin cancer had a biopsyfor that and will have that removed. Twelve-lead EKG shows atrial paced ventricular paced rhythm, device interrogation showed that she has paroxysmal atrial fibrillation longest for 47 minutes , she is on sotalol QTc 475 ms. Social History: Social History Socioeconomic History Marital status: Spouse name: Not on file Number of children: Not on file Years of education: Not on file Highest education level: Not on file Occupational History Not on file Tobacco Use Smoking status: Never Smokeless tobacco: Never Vaping Use Vaping status: Never Used Substance and Sexual Activity Alcohol use: Not Currently Drug use: Not Currently Sexual activity: Not Currently Other Topics Concern Not on file Social History Narrative Not on file Social Drivers of Health Financial Resource Strain: Not on file Food Insecurity: Not on file Transportation Needs: Not on file Physical Activity: Not on file Stress: Not on file Social Connections: Low Risk (11/28/2023) Family and Community Support Help with Day to Day Activities: Not on file Feeling Lonely or Isolated: Not on file Intimate Partner Violence: Unknown (08/25/2023) [facility], [facility] Abuse Screen Unsafe at Home or Work/School: Not on file Feels Threatened by Someone?: Not on file Does Anyone Keep You from Contacting Others or Doint Things Outside the Home?: Not on file Physical Sign of Abuse Present: Not on file Housing Stability: Low Risk (11/28/2023) Housing Stability Living situation today: Not on file Living situation problems: Not on file Family History: No family history on file. Medications: Current Outpatient Medications on File Prior to Visit Medication Sig Dispense Refill ALPRAZolam (XANAX) 0.5 MG tablet 3 (three) times daily as needed. carBAMazepine (TEGretol) 200 mg tablet daily. digoxin (LANOXIN) 125 mcg (0.125 mg) tablet Take 1 tablet (125 mcg total) by mouth daily. 90 tablet3 pantoprazole (PROTONIX) 20 MG tablet daily. sotaloL (BETAPACE) 160 MG tablet Take 1 tablet (160 mg total) by mouth 2 (two) times daily. 180 tablet 3 torsemide (DEMADEX) 10 MG tablet Take 1 tablet (10 mg total) by mouth daily. 90 tablet 3 traMADoL (ULTRAM) 50 mg tablet tramadol 50 mg tablet Take 1 tablet every 6 hours by oral route as needed. umeclidinium-vilanteroL (Anoro Ellipta) 62.5-25 mcg/actuation DsDv daily. warfarin (COUMADIN, JANTOVEN) 7.5 MG tablet daily. acetaminophen (TYLENOL) 500 MG tablet Tylenol Extra Strength 500 mg tablet Take 1 tablet every 4 hours by oral route as needed. (Patient not taking: Reported on 03/02/2025.) No current facility-administered medications on file prior to visit. Review of Systems: Pertinent items are noted in HPI. Physical Exam: Physical Exam Constitutional: General: She is not in acute distress. Appearance: Normal appearance. She is not toxic-appearing or diaphoretic. HENT: Head: Normocephalic and atraumatic. Nose: Nose normal. Mouth/Throat: Mouth: Mucous membranes are moist. Pharynx: Oropharynx is clear. Eyes: Extraocular Movements: Extraocular movements intact. Conjunctiva/sclera: Conjunctivae normal. Pupils: Pupils are equal, round, and reactive to light. Cardiovascular: Rate and Rhythm: Normal rate and regular rhythm. Heart sounds: Murmur heard. No gallop. Pulmonary: Effort: Pulmonary effort is normal. No respiratory distress. Breath sounds: Examination of the right-middle field reveals decreased breath sounds. Examination of the right-lower field reveals decreased breath sounds. Decreased breath sounds present. Abdominal: General: Abdomen is flat. Bowel sounds are normal. There is no distension. Palpations: Abdomen is soft. Tenderness: There is no abdominal tenderness. There is no guarding. Musculoskeletal: General: No swelling. Normal range of motion. Cervical back: Normal range of motion and neck supple. Right lower leg: Edema present. Left lower leg: Edema present. Skin: General: Skin is warm and dry. Coloration: Skin is not pale. Findings: No erythema. Neurological: General: No focal deficit present. Mental Status: She is alert and oriented to person, place, and time. Cranial Nerves: No cranial nerve deficit. Motor: No weakness. Psychiatric: Mood and Affect: Mood normal. Behavior: Behavior normal. Judgment: Judgment normal. Vitals: Hemodynamic parameters reviewed for last 24 hours. There were no vitals taken for this visit. Assessment: 1. Sick sinus syndrome and complete AV block s/p dual ppm Gen change 2020 (MDT) 2. Paroxysmal AF CHADSVASC score is 5 (age 2, gender, HTN, CHF) 3. Paroxysmal AT 4. COPD on home O2 5. LVEF 45-50% ECHO at [facility] 08/2023 6. HFmrEF 7. Mitral regurgitation 8. Pleural effusion Plan: Patient has mild reduced left ventricular systolic function, her CHF symptoms appear to be stable she has not had any CHF hospitalization, recommend to continue current therapy, consider upgrade to BiV at time of PG change however at this point since the patient is doing fairly well and due to her multiple comorbidities we will continue medical management. She is on sotalol for rhythm control QTcintervals about 450 ms. Will order BMP to assess renal function, she can have it done close to home. Follow up 6 months. Signed: Adrienne Dunn MD 03/02/2025 12:09 PM documented in this encounter Plan of Treatment Upcoming Encounters Date Type Department Care Team (Late st Contact Info) Description 09/07/2025 10:45 AM EDT Office Visit [facility] Electrophysiology [address] [facility] [address] [place] [id number] Adrienne Dunn MD [address] [facility] [address] [place] [address] Scheduled Orders Name Type Priority Associated Diagnoses Orde r Schedule ECG 12 lead ECG Routine Encounter for adjustment or management of cardiac device Ordered: 03/02/2025 Basic Metabolic Panel Lab Routine Encounter for adjustment or management of cardiac device Ordered: 03/02/2025 documented as of this encounter Visit Diagnoses Diagnosis Encounter for adjustment or management of cardiac device- Primary Paroxysmal atrial fibrillation (HCC) Atrial fibrillation CHB (complete heart block) (HCC) Atrioventricular block, complete documented in this encounter Care Teams Packing Room Supervisor Relationship Specialty Start Date End Date Niranjan Mccarty MD [address] [place] [address] PCP - General Adolescent Medicine 10/15/23 documented as of this encounter
--- OUTSIDE RECORDS SUMMARY | 2025-04-06 05:00 | XMS_ITS | Encounter Summary ---
Author Organization [employer] [facility] [employer] Address [address] [place] [address] Care Team Providers Care Tandem Mill Roller Name Role Phone Niranjan Mccarty MD Primary Care Provider [phone] Reason for Visit * Reason Comments Pacemaker /ICD Home Monitoring Encounter Details Date Type Department Care Team (Late st Contact Info) Description 04/06/2025 5:00 AM EDT Clinical Support [facility] Electrophysiology [address] [place] [address] [address] [place] [address] [place] [address] [place] [address] [address] [place] [address] Encounter for adjustment or management of cardiac [...] Date Garrett rded Speak language other than Emirati at home Not on file 11/28/2023 Want [...] Description 09/07/2025 10:45 AM EDT Office Visit [facility] Electrophysiology [address] [facility] [address] [place] [address] Adrienne Dunn MD [address] [facility] [address] [place] [address] documented as of this encounter Visit Diagnoses Diagnosis Encounter for adjustment or management of cardiac device- Primary Paroxysmal atrial fibrillation (HCC) Atrial fibrillation Presence of cardiac pacemaker Cardiac pacemaker in situ Sick sinus syndrome (HCC) Sinoatrial node dysfunction Complete atrioventricular block (HCC) Atrioventricular block, complete documented in this encounter Care Teams Tandem Mill Roller Relationship Specialty Start Date End Date Niranjan Mccarty MD [address] [place] [address] PCP - General Adolescent Medicine 10/15/23 documented as of this encounter
--- OUTSIDE RECORDS SUMMARY | 2025-04-27 09:50 | XMS_ITS | Encounter Summary ---
Author Organization [employer] Address [address] [place] [address] Care Team Providers Care Specification Manager Name Role Phone Niranjan Mccarty MD Primary Care Provider [phone] Encounter Details Date Type Department Care Team (Late st Contact Info) Description 10/12/2019 Transcribed Document [facility] Family [place] [address] ProviderAkash MD [address] [place] [id number] Social History Tobacco Use Types Packs/Day Years Used Date Smoking Tobacco: Never Assessed Comments Unknown Sex and Gender Information Value Date Recorded Sex Assigned at Not on file Legal Sex Female 1:32 PM CDT Gender Identity Not on file Sexual Orientation Not on file documented as of this encounter Miscellaneous Notes * Cerner Conversion Note - Akash Vega MD - 10/12/2019 9:40 AM CRIMINAL LEGAL ASSISTANT Patient Education Materials Follows: Nonspecific Chest Pain Chest pain can be caused by many different conditions. There is a chance that your pain could be related to something serious, such as a heart attack or a blood clot in your lungs. Chest pain can also be caused by conditions that are not life-threatening. If you have chest pain, it is very important to follow up with your doctor. Follow these instructions at home: Medicines ??? If you were prescribed an antibiotic medicine, take it as told by your doctor. Do not stop taking the antibiotic even if you start to feel better. ??? Take [id number] and prescription medicines only as told by your doctor. Lifestyle ??? Do not use any products that contain nicotine or tobacco, such as cigarettes and e-cigarettes. If you need help quitting, ask your doctor. ??? Do not drink alcohol. ??? Make lifestyle changes as told by your doctor. These may include: ? Getting regular exercise. Ask your doctor for some activities that are safe for you. ? Eating a heart-healthy diet. A diet specialist (dietitian) can help you to learn healthy eating options. ? Staying at a healthy weight. ? Managing diabetes, if needed. ? Lowering your stress, as with deep breathing or spending time in nature. General instructions ??? Avoid any activities that make you feel chest pain. ??? If your chest pain is because of heartburn: ? Raise (elevate) the head of your bed about 6 inches (15 cm). You can do this by putting blocks under the bed legs at the head of the bed. ? Do not sleep with extra pillows under your head. That does not help heartburn. ??? Keep all follow-up visits as told by your doctor. This is important. This includes any further testing if your chest pain does not go away. Contact a doctor if: ??? Your chest pain does not go away. ??? You have a rash with blisters on your chest. ??? You have a fever. ??? You have chills. Get help right away if: ??? Your chest pain is worse. ??? You have a cough that gets worse, or you cough up blood. ??? You have very bad (severe) pain in your belly (abdomen). ??? You are very weak. ??? You pass out (faint). ??? You have either of these for no clear reason: ? Sudden chest discomfort. ? Sudden discomfort in your arms, back, neck, or jaw. ??? You have shortness of breath at any time. ??? You suddenly start to sweat, or your skin gets clammy. ??? You feel sick to your stomach (nauseous). ??? You throw up (vomit). ??? You suddenly feel light-headed or dizzy. ??? Your heart starts to beat fast, or it feels like it is skipping beats. These symptoms may be an emergency. Do not wait to see if the symptoms will go away. Get medical help right away. Call your local emergency services (911 in the [place] Do not drive yourself to the hospital. This information is not intended to replace advice given to you by your health care provider. Make sure you discuss any questions you have with your health care provider. Document Released: 04/21/2009 Document Revised: 07/28/2017 Document Reviewed: 07/28/2017 [employer] Interactive Patient Education ? 2019 [employer] documented in this encounter Plan of Treatment Upcoming Encounters Date Type Department Care Team (Late st Contact Info) Description 09/07/2025 10:45 AM EDT Office Visit [facility] Electrophysiology [address] [place] [address] [address] [place] [address] [place] [address] [place] [address] [address] [place] [address] documented as of this encounter Visit Diagnoses Not on filedocumented in this encounter Care Teams Specification Manager Relationship Specialty Start Date End Date Niranjan Mccarty MD [address] [place] [address] PCP - General Adolescent Medicine 10/15/23 documented as of this encounter
--- OUTSIDE RECORDS SUMMARY | 2025-04-27 09:50 | XMS_ITS | Encounter Summary ---
Author Organization [email or web address] Address [address] [place] [address] Care Team Providers Care Ice Cream Freezer Helper Name Role Phone Niranjan Mccarty MD Primary Care Provider [phone] Encounter Details Date Type Department Care Team (Late st Contact Info) Description 10/12/2019 Transcribed Document [facility] Cardiology [address] [place] [address] [address] [facility] [place] [address] [place] [address] [place] [address] [address] [place] [address] Social History Tobacco Use Types Packs/Day Years Used Date Smoking Tobacco: Never Assessed Comments Unknown Sex and Gender Information Value Date Recorded Sex Assigned at Not on file Legal Sex Female 1:32 PM CDT Gender Identity Not on file Sexual Orientation Not on file documented as of this encounter Miscellaneous Notes * Cerner Conversion Note - Constantine Galvan MD - 10/12/2019 9:08 AM EST Patient: TRAN PEGUERO Age: 83 years Sex: Female : 1935 Associated Diagnoses: None Author: ADI DRIVER, DISABILITY ATTORNEY-INT Basic Information PCP: NIRANJAN MORRIS MD Loop Sewer: Cole SAMUEL Subjective NAD. No complaints of chest pain. Stress test completed. Health Status Current medications: Home Medications (12) Active Anoro Ellipta 62.5 mcg-25 mcg/inh inhalation powder 1 Puff, Inhalation, Daily Coumadin 7.5 mg oral tablet 7.5 mg = 1 Tab, Oral, Daily Digox 250 mcg (0.25 mg) oral tablet 125 mcg = 0.5 Tab, Oral, Daily potassium chloride 20 mEq/15 mL oral liquid 20 mEq = 15 mL, PRN, Oral, Daily Protonix 40 mg oral delayed release tablet 40 mg = 1 Tab, Oral, Daily Reglan 5 mg oral tablet 5 mg = 1 Tab, PRN, Oral, QID sotalol 120 mg oral tablet 120 mg = 1 Tab, Oral, BID TEGretol 200 mg oral tablet 200 mg = 1 Tab, Oral, At Bedtime TEGretol 200 mg oral tablet See Instructions, Oral, At Bedtime torsemide 20 mg oral tablet 20 mg = 1 Tab, PRN, Oral, Daily traMADol 50 mg, Q12H Xanax 0.5 mg oral tablet 0.5 mg = 1 Tab, PRN, Oral, BID , Medications (12) Active Scheduled: (7) carBAMazepine 200 mg tab 200 mg 1 Tab, Oral, At Bedtime digoxin 0.125 mg tab 125 mcg 1 Tab, Oral, Daily glycopyrrolate-indac 15.6-27.5 mcg inh cap #6 1 Each, Inhalation, BID pantoprazole EC 40 mg tab 40 mg 1 Tab, Oral, Daily sotalol 80 mg tab 120 mg 1.5 Tab, Oral, BID traMADol 50 mg tab 50 mg 1 Tab, Oral, Q12H warfarin 5 mg tab 5 mg 1 Tab, Oral, Daily Continuous: (0) PRN: (5) acetaminophen 325 mg tab 650 mg 2 Tab, Oral, Q4H albuterol-ipratropium inh 3 mL 3 mL, Nebulized Inhalation, RT_Q6H ALPRAZolam 0.5 mg tab 0.5 mg 1 Tab, Oral, BID hydrALAZINE 20 mg/1 mL inj 5 mg 0.25 mL, IV Push, Q6H ondansetron 4 mg/2 mL inj 4 mg 2 mL, IV Push, Q4H Problem list: Active Problems (11) Anxiety At risk for sleep apnea Atrial fibrillation Atrial fibrillation Chronic CHF Chronic respiratory failure H/O hyperlipidemia H/O sick sinus syndrome Hyperlipidemia Hypertension Leg swelling Objective VS/Measurements Vitals Signs (last 24 hrs) Last Charted Minimum Maximum Temp 98.1 (OCT 12 06:42) 98 (OCT 11 15:00) 99 (OCT 11 18:44) Apical HR 77 (OCT 11 22:33) 77 (OCT 11 22:33) 91 (OCT 11 14:54) Mon HR 94 (OCT 12 06:42) 60 (OCT 11 23:48) 94 (OCT 12 06:42) Resp Rate 16 (OCT 12:42) 16 (OCT 12 06:42) 18 (OCT 11 18:44) SBP 100 (OCT 12 06:42) 100 (OCT 12 03:50) H 151 (OCT 11 15:00) DBP L 54 (OCT 12 06:42) L 54 (OCT 12 06:42) 81 (OCT 11 18:44) MAP 66 (OCT 12 06:42) 66 (OCT 12 06:42) 125 (OCT 11 15:00) SpO2 95 (OCT 12:42) 95 (OCT 12 06:42) 99 (OCT 11 18:44) General: Alert and oriented, No acute distress. Eye: Pupils are equal, round and reactive to light, Normal conjunctiva, Vision unchanged. HENT: Normocephalic, Oral mucosa is moist. Neck: Supple, Non-tender, No carotid bruit, No jugular venous distention. Respiratory: Lungs are clear to auscultation, Respirations are non-labored, Breath sounds are equal, Symmetrical chest wall expansion. Cardiovascular: Normal rate, Regular rhythm, No murmur, Good pulses equal in all extremities, Normal peripheral perfusion, No edema. Gastrointestinal: Soft, Non-tender, Non-distended, Normal bowel sounds. Genitourinary: Exam deferred. Musculoskeletal: Normal range of motion, Normal strength, No deformity. Integumentary: Warm, Dry, [place], Intact, No rash. Neurologic: Alert, Oriented, No focal deficits. Psychiatric: Cooperative, Appropriate mood & affect. Results Review Impression and Plan IMPRESSION: * Recurrent chest pain Negative troponin x 3 Normal Lexiscan 10/11/19 * Paroxysmal atrial fibrillation On Warfarin and sotalol * COPD Chronic dyspnea * HTN * HLD PLAN; 10/12/19 Nuclear stress testing normal. LVEF-60%. Okay to discharge home today from cardiology standpoint. F/U with Dr. Falluji as an outpatient. Continue current cardiac medications at discharge. 10/11/19 going for a stress test today and based on the results further recommendations will be made. 10/10/19 Chest pain that is recurrent in the setting of other risk factors thought to be best treated with further cardiac risk stratification by Lexiscan MPI in am. Continue current treatment regimen for paroxysmal atrial fibrillation, Further recommendations pending stress results documented in this encounter Plan of Treatment Upcoming Encounters Date Type Department Care Team (Late st Contact Info) Description 09/07/2025 10:45 AM EDT Office Visit [facility] Electrophysiology [address] [facility] [address] [place] [address] Adrienne Dunn MD [address] [facility] [address] [place], [place] [id number] documented as of this encounter Visit Diagnoses Not on filedocumented in this encounter Care Teams Ice Cream Freezer Helper Relationship Specialty Start Date End Date Niranjan Mccarty MD [address] [place] [address] PCP - General Adolescent Medicine 10/15/23 documented as of this encounter
--- OUTSIDE RECORDS SUMMARY | 2025-04-27 09:50 | XMS_ITS | Encounter Summary ---
Author Organization [employer] Address [address] [place] [address] Care Team Providers Care Candy Wrapping Machine Operator Name Role Phone Niranjan Mccarty MD Primary Care Provider [phone] Encounter Details Date Type Department Care Team (Late st Contact Info) Description 10/12/2019 Transcribed Document [facility] [place] [facility] [place] [address] ProviderAkash MD [address] [place] [address] Social History Tobacco Use Types Packs/Day Years Used Date Smoking Tobacco: Never Assessed Comments Unknown Sex and Gender Information Value Date Recorded Sex Assigned at Not on file Legal Sex Female 1:32 PM CDT Gender Identity Not on file Sexual Orientation Not on file documented as of this encounter Miscellaneous Notes * Cerner Conversion Note - Akash Vega MD - 10/12/2019 5:15 PM SUPPLY CHAIN ENGINEER [facility] [address] WILD, TALDAREN MENDOZA :1935 Visit Time:10/09/2019 Your Visit Summary Your Care Team Admitting Physician - MANSI SALOMON MD Attending Physician - MANSI SALOMON MD Primary Care Physician - NIRANJAN MORRIS MD-FAM Referring Physician - NIRANJAN MORRIS MD-FAM PHY, UNKNOWN Your Diagnosis Chest pain, unspecified, Chest pain, unspecified Discharge Vitals Temperature 36.9 ??C Heart Rate 77 Blood Pressure 129/76 What to do next Instructions From Your Care Team Discharge Activity: Discharge Activity: Activity as tolerated Diet: Discharge Diet: Resume usual diet as tolerated Follow-Up Appointments Follow Up with ERICK BURNHAM MD When Within 1 to 2 weeks Comments Call for follow up appointment Where: [address] [facility] [address] [place] [address]- Follow Up with VIRY ESTRADA MD-CAR When Within 1 to 2 weeks Comments Call for follow up appointment Where: [address] [facility] [address] [place] [address]- Follow Up with NIRANJAN MORRIS MD-[facility] When Within 2 to 4 weeks Where: [address] Warfarin Instructions Indication for Warfarin Anticoagulation: Atrial fibrillation Warfarin Anticoagulation Disposition: Continuation of pre-hospital treatment Notify Provider of Signs/Symptoms of: Significant bleeding, Clot Medications What How Much When Instructions Next Dose carBAMazepine (TEGretol 200 mg oral tablet) 1 Tablet(s) Oral At Bedtime digoxin (Digox 250 mcg (0.25 mg) oral tablet) 0.5 Tablet(s) Oral Every Day sotalol (sotalol 120 mg oral tablet) 1 Tablet(s) Oral Two Times A Day warfarin (warfarin 5 mg oral tablet) 1 Tablet(s) Oral Every Day Duration: 30 Day(s) Printed Prescription ALPRAZolam (Xanax 0.5 mg oral tablet) 1 Tablet(s) Oral Two Times A Day as needed for anxiety metoclopramide (Reglan 5 mg oral tablet) 1 Tablet(s) Oral Four Times A Day as needed for Abdominal Pain pantoprazole (Protonix 40 mg oral delayed release tablet) 1 Tablet(s) Oral Every Day potassium chloride (potassium chloride 20 mEq/ 15 mL oral liquid) 15 Milliliter(s) Oral Every Day as needed for Other (See Comment) With torsemide torsemide (torsemide 20 mg oral tablet) 1 Tablet(s) Oral Every Day as needed for Edema traMADol 50 Milligram(s) Every 12 hours umeclidinium-vilanterol (Anoro Ellipta 62.5 mcg-25 mcg/ inh inhalation powder) 1 Puff(s) Inhalation Every Day Take your medications faithfully. Do NOT skip medication. Do NOT stop taking medications without the direction of a physician. Carry a list of your medications with you at all times, and take this medication list with you to your first follow up visit. Report any side effects. Avoid herbal remedies unless discussed with your physician. As part of your treatment plan, your physician may have prescribed a limited course of a controlled substance. This medication may be given to help people with moderate or severe pain or for other medical conditions, but there are risks involved with treatment. Common side effects may include nausea, constipation, drowsiness, sweating, itching, dry mouth, and rash. More serious side effects may include cognitive and motor impairment, like problems with thinking, concentrating, alertness, and movement (e.g. slowed reflexes), and driving and operating heavy machinery can be dangerous. It is important for you to talk to your physician if you have these side effects or questions. These controlled substances can produce physical dependence and be habit-forming if taken for an extended period of time, which means that the body has gotten used to them and may experience withdrawal symptoms if they are abruptly stopped. Withdrawal symptoms can include runny nose, sweating, goose bumps, diarrhea, abdominal cramping, rapid heartbeat, difficulty sleeping, and nervousness. Please dispose of unused and medications per your retail pharmacy guidance. Allergies Advicor Radha Biaxin Claritin Percodan Vioxx aspirin-oxyCODONE azithromycin cefuroxime cephalexin ciprofloxacin clarithromycin codeine cortisone erythromycin fexofenadine iodinated radiocontrast dyes loratadine penicillins phytonadione rofecoxib sulfADIAZINE tetracaine Immunizations This Visit No Immunizations Found Education Materials Nonspecific Chest Pain Chest pain can be [...] you start to feel better. ??? Take rryr-wbb-vnbrakr and prescription medicines only as told by [...] 04/21/2009 Document Revised: 07/28/2017 Document Reviewed: 07/28/2017 [employer] Interactive Patient Education ?? 2019 [employer]. Emergency Awareness and Preventative Care STROKE is an EMERGENCY Every Minute Counts Act FAST and Check for these signs: FACE Does the face look uneven? ARM Does one arm drift down? SPEECH Does their speech sound strange? TIME Call at any sign of stroke Stroke Risk Factors Atrial Fibrillation (irregular heartbeat) Diabetes Family history of stroke Heart Disease Heavy alcohol use High Blood Pressure High Cholesterol Physical inactivity and obesity Smoking Cigarette Smoking The facts are clear, cigarette smoking will shorten your life. Smoking can cause many illnesses along the way. As a healthcare provider, we recommend that you stop smoking. Assistance with quitting is available by contacting 0-803-SYWTNight Node SoftwareNOW. This is a free resource providing counseling, support, and referral. Or you may contact your personal physician. National Suicide Prevention Lifeline: The National Suicide Prevention Lifeline is a national network of local crisis centers that provides free and confidential emotional support to people in suicidal crisis or emotional distress 24 hours a day, 7 days a week. Don't Wait! Stop a Heart Attack Before it Starts What is a heart attack? A heart attack is damage or to a part of the heart from severely decreased or lack of blood flow to the heart. Over time, arteries can become narrow from the buildup of fat and cholesterol, which is called plaque. The plaque can rupture causing a blood clot to form. When the blood clot forms, the artery can become severely narrowed or completely blocked, causing a heart attack. Heart attack is the leading cause of in the [place]. 85% of muscle damage occurs within the first 2 hours. Delay in the recognition of heart attack symptoms increases the chances of . Know the early symptoms of a heart attack: Nausea Feeling of fullness in chest Jaw Pain Pain that travels down one or both arms Fatigue/being tired Anxiety Back Pain Chest pressure, squeezing, or discomfort Shortness of breath Sweating, or a cold sweat Feeling of impending doom There are unusual signs of a heart attack, too! Women, the elderly, and diabetics may present with atypical symptoms: Fainting/dizziness Weakness Confusion Risk Factors for a Heart Attack Some heart disease risk factors, such as age and family history, cannot be changed. Others, like smoking and lack of exercise, can be changed. Smoking High Cholesterol High Blood Pressure Family History Obesity Age Gender (Males are at higher risk) Lack of Exercise Diabetes Diet Stress Excessive Alcohol Intake If you or someone you know is experiencing the signs and symptoms of a heart attack, DON???T DELAY. Call immediately and seek help. If someone collapses, perform CPR! Do not attempt to drive if you are having symptoms of heart attack. Hands-Only CPR Why Hands-Only CPR? Hands-Only CPR has been shown to be as effective as conventional CPR for cardiac arrests that occur outside of a hospital. Survival depends on immediately receiving CPR from someone nearby. How do you perform Hands-Only CPR? There are two easy steps: Call if you see a teen or adult collapse Push hard and fast in the center of the chest at a beat of 100 beats per minute. Save a life! 4 WAYS TO GET AHEAD OF SEPSIS SEPSIS is a MEDICAL EMERGENCY. Time matters! Infections put you and your family at risk for a life-threatening condition called sepsis. Sepsis is the body's extreme response to an infection. It is life-threatening, and without timely treatment, sepsis can rapidly lead to tissue damage, organ failure, and . Sepsis happens when an infection you already have-in your skin, lungs, urinary tract or somewhere else-triggers a chain reaction throughout your body. 1 PREVENT INFECTIONS Take good care of chronic conditions. Talk to your doctor about getting the recommended vaccines. 2 PRACTICE GOOD HYGIENE Wash your hands frequently. Keep cuts or open sores clean and covered until they are healed. 3 KNOW THE SYMPTOMS Confusion or disorientation Shortness of breath High heart rate Fever, shivering, or feeling very cold Extreme pain or discomfort Clammy or sweaty skin 4 ACT FAST Get medical care IMMEDIATELY if you suspect sepsis or if you have an infection that is not getting better or is getting worse. To learn more about sepsis and how to prevent infections, visit www.cdc.gov/sepsis. Test Results Laboratory or Other Results This Visit (last charted value for your 10/09/2019 visit) Hematology 10/10/2019 2:57 AM WBC: 7.3 K/uL -- Normal range between ( 4.5 and 10.5 ) RBC: 3.51 Million/uL -- Normal range between ( 3.93 and 5.22 ) Hct: 33.1 % -- Normal range between ( 34.1 and 44.9 ) Hgb: 10.6 g/dL -- Normal range between ( 11.2 and 15.7 ) Platelet Count: 198 K/uL -- Normal range between ( 163 and 369 ) MCH: 30.2 pg -- Normal range between ( 25.6 and 32.2 ) MCHC: 32.0 Gram/dL -- Normal range between ( 32.2 and 36.5 ) MCV: 94.3 fL -- Normal range between ( 79.0 and 94.8 ) Slide Review: No Eos %: 2.8 % -- Normal range between ( 0.0 and 7.0 ) Meriwether #: 0.75 K/uL -- Normal range between ( 0.16 and 1.00 ) Eos #: 0.20 x10(3)/uL -- Normal range between ( 0.00 and 0.80 ) Meriwether %: 10.3 % -- Normal range between ( 3.0 and 9.0 ) Baso %: 0.4 % -- Normal range between ( 0.0 and 1.5 ) Baso #: 0.03 x10(3)/uL -- Normal range between ( 0.00 and 0.20 ) RDW: 11.7 % -- Normal range between ( 11.7 and 14.9 ) Neut %: 56.1 % -- Normal range between ( 34.0 and 71.0 ) Neut #: 4.08 K/uL -- Normal range between ( 1.56 and 6.13 ) Lymph %: 30.3 % -- Normal range between ( 19.3 and 53.1 ) Lymph #: 2.20 x10(3)/uL -- Normal range between ( 1.00 and 3.90 ) MPV: 10.1 fL -- Normal range between ( 9.4 and 12.4 ) IG#: 0.01 x10(3)/uL -- Normal range between ( 0.00 and 0.05 ) IG%: 0.10 % -- Normal range between ( 0.00 and 0.60 ) Microbiology 10/09/2019 11:36 PM MRSA Surveillance: See Result General Chemistry 10/10/2019 2:57 AM Creatinine Level: 0.70 mg/dL -- Normal range between ( 0.55 and 1.02 ) Sodium Level: 141 mmol/L -- Normal range between ( 136 and 146 ) Potassium Level: 3.9 mmol/L -- Normal range between ( 3.5 and 5.1 ) Chloride Level: 106 mmol/L -- Normal range between ( 102 and 112 ) Carbon Dioxide Level: 32 mmol/L -- Normal range between ( 21 and 32 ) Anion Gap: 7 -- Normal range between ( 9 and 20 ) Bun/Creatinine: 17.1 -- Normal range between ( 8.0 and 20.0 ) Calcium Level: 8.9 mg/dL -- Normal range between ( 8.4 and 10.1 ) eGFR : >60 mL/min/1.73m2 eGFR NonAfrican: >60 mL/min/1.73m2 Glucose Level: 87 mg/dL -- Normal range between ( 74 and 106 ) Blood Urea Nitrogen: 12 mg/dL -- Normal range between ( 7 and 22 ) Cardiac Specific Markers 10/10/2019 2:57 AM Troponin I Ultra: <0.015 ng/mL -- Normal range between ( 0.015 and 0.045 ) Coagulation 10/12/2019 3:23 AM INR: 2.6 -- Normal range between ( 0.9 and 1.1 ) PT: 27.4 Second(s) -- Normal range between ( 9.6 and 12.0 ) Lipid Studies 10/10/2019 2:57 AM Cholesterol Tot: 246 mg/dL -- Normal range between ( 0 and 199 ) Cholesterol HDL: 74.0 mg/dL Cholesterol LDL Calculation: 152.6 mg/dL -- Normal range between ( 0.0 and 99.0 ) Cholesterol VLDL Calculation: 19.4 mg/dL -- Normal range between ( 5.0 and 40.0 ) Cholesterol/HDL Ratio: 3.3 -- Normal range between ( 0.0 and 3.2 ) Triglyceride: 97 mg/dL -- Normal range between ( 0 and 249 ) LDL/HDL Ratio: 2.1 -- Normal range between ( 0.0 and 3.2 ) Patient Name:WILD, TAL HEN I have received and understand this information and was given the opportunity to ask questions. Patient/Shovel Handle Assembler Name: Patient/Shovel Handle Assembler Signature: Relationship to Patient: Clinician/Hospital Shovel Handle Assembler Signature: Date: documented in this encounter Plan of Treatment Upcoming Encounters Date Type Department Care Team (Late st Contact Info) Description 09/07/2025 10:45 AM EDT Office Visit [facility] Electrophysiology [address] [facility] [address] [place] [address] [place] [address] [place] [address] [address] [place] [address] documented as of this encounter Visit Diagnoses Not on filedocumented in this encounter Care Teams Candy Wrapping Machine Operator Relationship Specialty Start Date End Date Niranjan Mccarty MD [address] [place] [address] PCP - General Adolescent Medicine 10/15/23 documented as of this encounter
--- OUTSIDE RECORDS SUMMARY | 2025-04-27 09:50 | XMS_ITS | Encounter Summary ---
Author Organization [employer] Address [address] [place] [address] Care Team Providers Care Dental Front Office Assistant Name Role Phone Niranjan Mccarty MD Primary Care Provider [phone] Encounter Details Date Type Department Care Team (Late st Contact Info) Description 10/11/2019 Transcribed Document [facility] [place] [address] ProviderAkash MD [address] [place] [address] Social History Tobacco Use Types Packs/Day Years Used Date Smoking Tobacco: Never Assessed Comments Unknown Sex and Gender Information Value Date Recorded Sex Assigned at Not on file Legal Sex Female 1:32 PM CDT Gender Identity Not on file Sexual Orientation Not on file documented as of this encounter Miscellaneous Notes * Cerner Conversion Note - Akash ProviderMD - 10/11/2019 9:00 AM TIMBER FRAMER HELPER Pain Assessment Entered On: 10/11/2019 16:45 EST Performed On: 10/11/2019 15:54 EST by Carlos Burroughs RN Intervention Information: traMADol Performed by Carlos Burroughs RN on 10/11/2019 14:54:00 EST traMADol,50mg Oral Pain Assessment Pain Assessment : Follow-up assessment Pain Scale Goal : 4 Pain Scale Used : 0-10 Scale Carlos Burroughs RN - 10/11/2019 16:45 EST Pain Scale Intensity : 0 Carlos Burroughs RN - 10/11/2019 16:45 EST Image 4 - Images currently included in the form version of this document have not been included in the text rendition version of the form. documented in this encounter Plan of Treatment Upcoming Encounters Date Type Department Care Team (Late st Contact Info) Description 09/07/2025 10:45 AM EDT Office Visit [facility] [address] [place] [address] [address] [place] [address] Adrienne Dunn MD [address] [place] [address] [address] [place] [address] documented as of this encounter Visit Diagnoses Not on filedocumented in this encounter Care Teams Dental Front Office Assistant Relationship Specialty Start Date End Date Niranjan Mccarty MD [address] [place] [address] PCP - General Adolescent Medicine 10/15/23 documented as of this encounter
--- OUTSIDE RECORDS SUMMARY | 2025-04-27 09:50 | XMS_ITS | Encounter Summary ---
Author Organization [employer] Address [address] [place] [address] Care Team Providers Care Power Distribution Engineer Name Role Phone Niranjan Mccarty MD Primary Care Provider [phone] Encounter Details Date Type Department Care Team (Late st Contact Info) Description 10/12/2019 Transcribed Document [facility] [place] [facility] [place] [address] ProviderAkash MD [address] [place] [address] Social History Tobacco Use Types Packs/Day Years Used Date Smoking Tobacco: Never Assessed Comments Unknown Sex and Gender Information Value Date Recorded Sex Assigned at Not on file Legal Sex Female 1:32 PM CDT Gender Identity Not on file Sexual Orientation Not on file documented as of this encounter Miscellaneous Notes * Cerner Conversion Note - Akash Vega MD - 10/12/2019 3:47 PM DRILL OPERATOR AUTOMATIC Final Discharge Planning Entered On: 10/12/2019 15:47 EST Performed On: 10/12/2019 15:47 EST by CATHERINE LOZANO RN-Care Management Final Discharge Planning Discharge Arrangements : Patient Post-Acute Information Patient Name: TRAN PEGUERO Gender: Female : 35 Age: 83 Years No Post-Acute Placement(s) Listed No Post-Acute Service(s) Listed No Cur[place]pan Referral(s) Listed Important Medicare Message Reviewed With : Patient Important Medicare Message Reviewed D/T : 10/12/2019 15:47 EST Transportation Needs : Family/Friend Is Patient High/Moderate Readmission Risk? : No Patient/Family Notified of Plan : Yes Is Patient Ready for Discharge? : Yes Physician Notified Patient is Ready for Discharge? : Yes Discharge To Care Management : Home/Residential/Shelter or Self Care -01 CATHERINE LOZANO RN-Care Management - 10/12/2019 15:47 EST Final Narrative Note Final Narrative Note : Pt to be discharged today w/o needs for CM to address, and family transporting CATHERINE LOZANO RN-Care Management - 10/12/2019 15:47 EST Electronically signed by [facility], [facility] Conversion Physical Therapy Manager Cerner at 03/07/2023 1:55 PM CDT documented in this encounter Plan of Treatment Upcoming Encounters Date Type Department Care Team (Late st Contact Info) Description 09/07/2025 10:45 AM EDT Office Visit [facility] Electrophysiology [address] [place] [address] [address] [place] [address] [place] [address] [place] [address] [address] [place] [address] documented as of this encounter Visit Diagnoses Not on filedocumented in this encounter Care Teams Power Distribution Engineer Relationship Specialty Start Date End Date Niranjan Mccarty MD [address] [place] [address] PCP - General Adolescent Medicine 10/15/23 documented as of this encounter
--- OUTSIDE RECORDS SUMMARY | 2025-04-27 09:50 | XMS_ITS | Encounter Summary ---
Author Organization [employer] Address [address] [place] [address] Care Team Providers Care Chemical Laboratory Chief Name Role Phone Niranjan Mccarty MD Primary Care Provider [phone] Encounter Details Date Type Department Care Team (Late st Contact Info) Description 10/11/2019 Transcribed Document [facility] [place] [facility] [place] [address] ProviderAkash MD [address] [place] [address] Social History Tobacco Use Types Packs/Day Years Used Date Smoking Tobacco: Never Assessed Comments Unknown Sex and Gender Information Value Date Recorded Sex Assigned at Not on file Legal Sex Female 1:32 PM CDT Gender Identity Not on file Sexual Orientation Not on file documented as of this encounter Miscellaneous Notes * Cerner Conversion Note - Akash Vega MD - 10/11/2019 3:28 PM DETECTIVE SERGEANT Initial Discharge Planning Entered On: 10/11/2019 15:33 EST Performed On: 10/11/2019 15:28 EST by MEAGHAN DIXON Rn-Dinker Initial Assessment I Previously Documented Living Environment : No qualifying data available. Living Situation : Home Patient Lives With : Spouse Emergency Contact #1 : Sandee Emergency Contact #1 Emergency Contact #1 Relationship : daughter Emergency Contact #2 : Dana Emergency Contact #2 Emergency Contact #2 Relationship : sister in law Medical Durable Power of Freight Inspector Name : Yes Legal Guardian : No MEAGHAN DIXON Rn-Dinker - 10/11/2019 15:28 EST Initial Assessment II Sensory and Motor Deficits : None Deficit Description : however, says she has a transport chair. MEAGHAN DIXON Rn-Dinker - 10/11/2019 15:28 EST Discharge Needs I Anticipated Discharge Date : 10/14/2019 EST Current Home Treatment/Equipment : Current Home Treatment/Equipment No qualifying data available. Post Acute/Home Treatments : None Documentation Status Complete : Yes MEAGHAN DIXON Rn-Dinker - 10/11/2019 15:28 EST Discharge Needs II Professional Skilled Services : Professional Skilled Services No qualifying data available. Needs Assistance with Transportation : Maybe Discharge Options Discussed with Patient : Home Health, Outpatient services MEAGHAN DIXON Rn-Dinker - 10/11/2019 15:28 EST Narrative Note Narrative Note : RRS: Low 34 RN casde manager facility met with pt at the bedside. Reed just came back from stress test results pending. CM introduced self and role of CM. Pt verbalizes lives at home with her . Independent in adls. Denies use of DME however, has atransport chair at home she is not using. denies HH or rehab stays in the past. She has a BSC. Has home oxygen 2 l iters nasal canular. Dc plan: Home with family vs HH. She will have transoport home. CM advised her to let her transport come with her portable oxygen tank at dc. MEAGHAN DIXON Rn-Dinker - 10/11/2019 15:28 EST documented in this encounter Plan of Treatment Upcoming Encounters Date Type Department Care Team (Late st Contact Info) Description 09/07/2025 10:45 AM EDT Office Visit [facility] Electrophysiology [address] [facility] [address] [place] [address] Adrienne Dunn MD [address] [facility] [address] [place] [address] documented as of this encounter Visit Diagnoses Not on filedocumented in this encounter Care Teams Chemical Laboratory Chief Relationship Specialty Start Date End Date Niranjan Mccarty MD [address] [place] [address] PCP - General Adolescent Medicine 10/15/23 documented as of this encounter
--- OUTSIDE RECORDS SUMMARY | 2025-04-27 09:50 | XMS_ITS | Encounter Summary ---
Author Organization [employer] Address [address] [place] [address] Care Team Providers Care Audiologist Name Role Phone Niranjan Mccarty MD Primary Care Provider [phone] Encounter Details Date Type Department Care Team (Late st Contact Info) Description 10/13/2019 Transcribed Document [facility] Family Medicine [facility] [address] ProviderAkash MD [address] [place] [address] Social History Tobacco Use Types Packs/Day Years Used Date Smoking Tobacco: Never Assessed Comments Unknown Sex and Gender Information Value Date Recorded Sex Assigned at Not on file Legal Sex Female 1:32 PM CDT Gender Identity Not on file Sexual Orientation Not on file documented as of this encounter Miscellaneous Notes * Cerner Conversion Note - Historical ProviderMD - 10/13/2019 8:26 AM BLOCK CUBER Discharge Summary, PT Entered On: 10/13/2019 8:27 EST Performed On: 10/13/2019 8:26 EST by WILLIE GOLDEN PT Discharge Summary Discharge Summary Provider Notified : Physical Therapy Reason for Discharge : Discharged from hospital Discharged to, Therapy : Home, with family care Discharge Summary Comment, PT : pt was evaluated on 10/10 and was not seen since due to pt not available /refused WILLIE GOLDEN, PT - 10/13/2019 8:26 EST Pest Control Technician Goals Mobility/Bed Mobility LTG PT Grid Goal #1 Activity : Supine to sit Assist : Independent, complete Date to Meet : 10/24/2019 EST Goal Status : Not met WILLIE GOLDEN, PT - 10/13/2019 8:26 EST Ambulation LTG Grid Goal #1 Device : Walker, front wheel Distance : 100' with fluid gait pattern Assist : Independent, modified Date to Meet : 10/24/2019 EST Goal Status : Not met WILLIE GOLDEN, PT - 10/13/2019 8:26 EST Electronically signed by [facility], [facility] Conversion Dairy Farmworker Cerner at 03/07/2023 1:24 PM CDT documented in this encounter Plan of Treatment Upcoming Encounters Date Type Department Care Team (Late st Contact Info) Description 09/07/2025 10:45 AM EDT Office Visit [facility] Electrophysiology [address] [facility] [address] [place] [address] [place] [address] [place] [address] [address] [place] [address] documented as of this encounter Visit Diagnoses Not on filedocumented in this encounter Care Teams Audiologist Relationship Specialty Start Date End Date Niranjan Mccarty MD [address] [place] [address] PCP - General Adolescent Medicine 10/15/23 documented as of this encounter
--- OUTSIDE RECORDS SUMMARY | 2025-04-27 09:50 | XMS_ITS | Encounter Summary ---
Author Organization [employer] Address [address] [place] [address] Care Team Providers Care B Operator Name Role Phone Niranjan Mccarty MD Primary Care Provider [phone] Encounter Details Date Type Department Care Team (Late st Contact Info) Description 10/11/2019 Transcribed Document [facility] Cardiology [address] [place] [address] [address] [place] [address] [place] [address] [place] [address] [address] [place] [address] Social History Tobacco Use Types Packs/Day Years Used Date Smoking Tobacco: Never Assessed Comments Unknown Sex and Gender Information Value Date Recorded Sex Assigned at Not on file Legal Sex Female 1:32 PM CDT Gender Identity Not on file Sexual Orientation Not on file documented as of this encounter Miscellaneous Notes * Cerner Conversion Note - Constantine Galvan MD - 10/11/2019 3:00 PM EST DATE OF SERVICE: This patient underwent a Lexiscan myocardial perfusion study, the EKG portion of which was unremarkable. NUCLEAR SCAN: There appears to be a within normal myocardial perfusion. Normal wall motion appreciated. Ejection fraction 60%. IMPRESSION: 1. Normal study. 2. Ejection fraction 60%. /[id number] Constantine Galvan MD NMF/AQ / NMF / MODL /[id number] documented in this encounter Plan of Treatment Upcoming Encounters Date Type Department Care Team (Late st Contact Info) Description 09/07/2025 10:45 AM EDT Office Visit [facility] Electrophysiology [address] [place] [address] [address] [place] [address] Adrienne Dunn MD [address] [place] [address] [address] [place] [id number] documented as of this encounter Visit Diagnoses Not on filedocumented in this encounter Care Teams B Operator Relationship Specialty Start Date End Date Niranjan Mccarty MD [address] [place] [address] PCP - General Adolescent Medicine 10/15/23 documented as of this encounter
--- OUTSIDE RECORDS SUMMARY | 2025-04-27 09:50 | XMS_ITS | Encounter Summary ---
Author Organization [employer] Address [address] [place] [address] Care Team Providers Care Plug And Mold Finisher Name Role Phone Niranjan Mccarty MD Primary Care Provider [phone] Encounter Details Date Type Department Care Team (Late st Contact Info) Description 10/11/2019 Transcribed Document [facility] Family Medicine Counts include [address] beds at the [facility] [place] [address] ProviderAkash MD [address] [place] [address] Social History Tobacco Use Types Packs/Day Years Used Date Smoking Tobacco: Never Assessed Comments Unknown Sex and Gender Information Value Date Recorded Sex Assigned at Not on file Legal Sex Female 1:32 PM CDT Gender Identity Not on file Sexual Orientation Not on file documented as of this encounter Miscellaneous Notes * Cerner Conversion Note - Akash ProviderMD - 10/11/2019 9:00 PM LEARNING SUPPORT ASSISTANT Pain Assessment Entered On: 10/12/2019 6:31 EST Performed On: 10/11/2019 23:11 EST by MAXX BARRERA, RN Intervention Information: traMADol Performed by MAXX BARRERA RN on 10/11/2019 22:11:00 EST traMADol,50mg Oral Pain Assessment Pain Assessment : Follow-up assessment Pain Scale Goal : 4 Pain Improved by Intervention : Yes MAXX BARRERA, RN - 10/12/2019 6:31 EST Electronically signed by Cecy [facility] Conversion Home Health Manager Cerner at 03/07/2023 1:48 PM CDT documented in this encounter Plan of Treatment Upcoming Encounters Date Type Department Care Team (Late st Contact Info) Description 09/07/2025 10:45 AM EDT Office Visit [facility] Electrophysiology [address] [facility] [address] [place] [address] Adrienne Dunn MD [address] [facility] [address] [place], [place] [id number] documented as of this encounter Visit Diagnoses Not on filedocumented in this encounter Care Teams Plug And Mold Finisher Relationship Specialty Start Date End Date Niranjan Mccarty MD [address] [place] [address] PCP - General Adolescent Medicine 10/15/23 documented as of this encounter
--- OUTSIDE RECORDS SUMMARY | 2025-04-27 09:50 | XMS_ITS | Encounter Summary ---
Author Organization [employer] Address [address] [place] [address] Care Team Providers Care Benefits Processor Name Role Phone Niranjan Mccarty MD Primary Care Provider [phone] Encounter Details Date Type Department Care Team (Late st Contact Info) Description 10/11/2019 Transcribed Document [facility] Family Medicine [facility] [place] [address] ProviderAkash MD [address] [place] [address] Social History Tobacco Use Types Packs/Day Years Used Date Smoking Tobacco: Never Assessed Comments Unknown Sex and Gender Information Value Date Recorded Sex Assigned at Not on file Legal Sex Female 1:32 PM CDT Gender Identity Not on file Sexual Orientation Not on file documented as of this encounter Miscellaneous Notes * Cerner Conversion Note - Historical ProviderMD - 10/11/2019 5:00 AM LODGE OFFICER Chart Check - Review Order Profile Entered On: 10/11/2019 4:17 EST Performed On: 10/11/2019 5:00 EST by MEKA MANSFIELD RN Chart Check All Active Orders Reviewed : Yes MEKA MANSFIELD RN - 10/11/2019 4:17 EST Electronically signed by Sherri Sam Conversion Television Production Technician Cerner at 03/07/2023 1:36 PM CDT documented in this encounter Plan of Treatment Upcoming Encounters Date Type Department Care Team (Late st Contact Info) Description 09/07/2025 10:45 AM EDT Office Visit [address] [address] Adrienne Dunn MD [address] [facility] [address] [place], [place] [id number] documented as of this encounter Visit Diagnoses Not on filedocumented in this encounter Care Teams Benefits Processor Relationship Specialty Start Date End Date Niranjan Mccarty MD [address] [place] [address] PCP - General Adolescent Medicine 10/15/23 documented as of this encounter
--- OUTSIDE RECORDS SUMMARY | 2025-04-27 09:50 | XMS_ITS | Encounter Summary ---
Author Organization [employer] Address [address] [place] [address] Care Team Providers Care Director Of Hotel Operations Name Role Phone Niranjan Mccarty MD Primary Care Provider [phone] Encounter Details Date Type Department Care Team (Late st Contact Info) Description 10/10/2019 Transcribed Document [facility] Family Medicine [facility] [place] [address] ProviderAkash MD [address] [place] [address] Social History Tobacco Use Types Packs/Day Years Used Date Smoking Tobacco: Never Assessed Comments Unknown Sex and Gender Information Value Date Recorded Sex Assigned at Not on file Legal Sex Female 1:32 PM CDT Gender Identity Not on file Sexual Orientation Not on file documented as of this encounter Miscellaneous Notes * Cerner Conversion Note - Akash Vega MD - 10/10/2019 8:35 AM BOOK AGENT Patient: TRAN PEGUERO Age: 83 Years Sex: Female : 1935 Subjective Seen a bedside. States she has pain in her chest for generalized aching all over as well. Is radiating to the left side of her neck. No shortness of breath or palpitations. Vital Signs T: 36.7 ??C TMIN: 36.7 ??C TMAX: 36.9 ??C HR: 62(Monitored) RR: 16 BP: 102/65 SpO2: 98% HT: 165.1 cm WT: 65.51 kg BMI: 24 Oxygen Settings (Last) Oxygen Therapy Mode: Nasal cannula (10/10/19 08:00:00) Oxygen Flow Rate: 2 Liter/Min (10/10/19 08:00:00) Intake & Output Totals Last 24 Hours (7a-7a) Input Total: 0 mL Output Total: 200 mL Balance: -200 mL Physical Exam General: [Alert and oriented, well nourished, no acute distress]. Neurologic: [Awake, alert, and oriented X3, CN II-XII intact]. Eye: [PERRL, EOMI, normal conjuctiva]. HENT: [Normocephalic, clear tympanic membranes, normal hearing, moist oral mucosa, no scleral icterus, no sinus tenderness]. Neck: [Supple, non-tender, no carotid bruits, no JVD, no lymphadenopathy]. Lungs: [Clear to auscultation and percussion, non-labored respiration]. Heart: [Normal rate, regular rhythm, no murmur, gallop or edema]. Chest is tender on palpation Abdomen: [Soft, non-tender, non-distended, normal bowel sounds, no masses]. Musculoskeletal: [Left-sided chest wall tenderness to palpation noted, no significant tenderness in the neck]. Skin: [Skin is warm, dry and pink, no rashes or lesions]. Psychiatric: [Cooperative, appropriate mood and affect]. Assessment/Plan Chest pain Could be musculoskeletal but cannot rule out underlying cardiac disease Admit to telemetry Check EKG, serial troponins have been negative Nitroglycerin sublingual when necessary for recurrent chest pain Consult cardiology pending NPO past midnight Hypertension Continue home medications IV hydralazine as needed for uncontrolled hypertension Hyperlipidemia Will check fasting lipid panel History of A. fib SSS status post permanent pacemaker placement Monitor on telemetry Chronic anticoagulation with Coumadin Will check INR COPD, on home oxygen Not in exacerbation Continue supplemental oxygen and nebulized mucolytic as needed History of gastric ulcer Continue PPI Anxiety Continue home meds DVT prophylaxis: Patient is on Coumadin CODE STATUS is full code VTE Prophylaxis - Medical No VTE Prophylaxis Orders. Medications albuterol-ipratropium 2.5 mg-0.5 mg/3 mL inhalation solution, 3 mL, Nebulized Inhalation , RT_Q6H, PRN digoxin, 125 mcg= 1 Tab, Oral, Daily glycopyrrolate-indacaterol, 1 Each, Inhalation, BID hydrALAZINE, 5 mg= 0.25 mL, IV Push, Q6H, PRN Protonix, 40 mg= 1 Tab, Oral, Daily sotalol, 120 mg= 1.5 Tab, Oral, BID TEGretol, 200 mg= 1 Tab, Oral, At Bedtime traMADol, 50 mg= 1 Tab, Oral, Q12H Tylenol, 650 mg= 2 Tab, Oral, Q4H, PRN warfarin, 1 Each, Oral, Weekly Xanax, 0.5 mg= 1 Tab, Oral, BID, PRN Zofran, 4 mg= 2 mL, IV Push, Q4H, PRN Diagnostic Results No Radiology Results Found Lab Results Test Name Test Result Date/Time Sodium Level 141 mmol/L 10/10/2019 02:57 EST Sodium Level 140 mmol/L 10/09/2019 21:53 EST Potassium Level 3.9 mmol/L 10/10/2019 02:57 EST Potassium Level 3.4 mmol/L (Low) 10/09/2019 21:53 EST Chloride Level 106 mmol/L 10/10/2019 02:57 EST Chloride Level 105 mmol/L 10/09/2019 21:53 EST Carbon Dioxide Level 32 mmol/L 10/10/2019 02:57 EST Carbon Dioxide Level 30 mmol/L 10/09/2019 21:53 EST Anion Gap 7 (Low) 10/10/2019 02:57 EST Anion Gap 8 (Low) 10/09/2019 21:53 EST Glucose Level 87 mg/dL 10/10/2019 02:57 EST Glucose Level 92 mg/dL 10/09/2019 21:53 EST Blood Urea Nitrogen 12 mg/dL 10/10/2019 02:57 EST Blood Urea Nitrogen 11 mg/dL 10/09/2019 21:53 EST Creatinine Level 0.70 mg/dL 10/10/2019 02:57 EST Creatinine Level 0.70 mg/dL 10/09/2019 21:53 EST eGFR >60 mL/min/1.73m2 10/10/2019 02:57 EST eGFR >60 mL/min/1.73m2 10/09/2019 21:53 EST eGFR NonAfrican >60 mL/min/1.73m2 10/10/2019 02:57 EST eGFR NonAfrican >60 mL/min/1.73m2 10/09/2019 21:53 EST Bun/Creatinine 17.1 10/10/2019 02:57 EST Bun/Creatinine 15.7 10/09/2019 21:53 EST Calcium Level 8.9 mg/dL 10/10/2019 02:57 EST Calcium Level 9.0 mg/dL 10/09/2019 21:53 EST Troponin I Ultra <0.015 ng/mL 10/10/2019 02:57 EST Troponin I Ultra <0.015 ng/mL 10/09/2019 21:53 EST WBC 7.3 K/uL 10/10/2019 02:57 EST WBC 7.4 K/uL 10/09/2019 21:53 EST RBC 3.51 Million/uL (Low) 10/10/2019 02:57 EST RBC 3.99 Million/uL 10/09/2019 21:53 EST Hgb 10.6 g/dL (Low) 10/10/2019 02:57 EST Hgb 12.1 g/dL 10/09/2019 21:53 EST Hct 33.1 % (Low) 10/10/2019 02:57 EST Hct 36.9 % 10/09/2019 21:53 EST MCV 94.3 fL 10/10/2019 02:57 EST MCV 92.5 fL 10/09/2019 21:53 EST MCH 30.2 pg 10/10/2019 02:57 EST MCH 30.3 pg 10/09/2019 21:53 EST MCHC 32.0 Gram/dL (Low) 10/10/2019 02:57 EST MCHC 32.8 Gram/dL 10/09/2019 21:53 EST Platelet Count 198 K/uL 10/10/2019 02:57 EST Platelet Count 230 K/uL 10/09/2019 21:53 EST MPV 10.1 fL 10/10/2019 02:57 EST MPV 10.0 fL 10/09/2019 21:53 EST RDW 11.7 % 10/10/2019 02:57 EST RDW 11.7 % 10/09/2019 21:53 EST Neut % 56.1 % 10/10/2019 02:57 EST Neut % 64.8 % 10/09/2019 21:53 EST Neut # 4.08 K/uL 10/10/2019 02:57 EST Neut # 4.81 K/uL 10/09/2019 21:53 EST Lymph % 30.3 % 10/10/2019 02:57 EST Lymph % 24.2 % 10/09/2019 21:53 EST Lymph # 2.20 x10(3)/uL 10/10/2019 02:57 EST Lymph # 1.79 x10(3)/uL 10/09/2019 21:53 EST Sharp % 10.3 % (High) 10/10/2019 02:57 EST Sharp % 8.0 % 10/09/2019 21:53 EST Sharp # 0.75 K/uL 10/10/2019 02:57 EST Sharp # 0.59 K/uL 10/09/2019 21:53 EST Eos % 2.8 % 10/10/2019 02:57 EST Eos % 2.2 % 10/09/2019 21:53 EST Eos # 0.20 x10(3)/uL 10/10/2019 02:57 EST Eos # 0.16 x10(3)/uL 10/09/2019 21:53 EST Baso % 0.4 % 10/10/2019 02:57 EST Baso % 0.5 % 10/09/2019 21:53 EST Baso # 0.03 x10(3)/uL 10/10/2019 02:57 EST Baso # 0.04 x10(3)/uL 10/09/2019 21:53 EST Slide Review No 10/10/2019 02:57 EST Slide Review No 10/09/2019 21:53 EST IG# 0.01 x10(3)/uL 10/10/2019 02:57 EST IG# 0.02 x10(3)/uL 10/09/2019 21:53 EST IG% 0.10 % 10/10/2019 02:57 EST IG% 0.30 % 10/09/2019 21:53 EST PT 19.9 Second(s) (High) 10/10/2019 02:57 EST PT 20.6 Second(s) (High) 10/09/2019 21:53 EST INR 1.9 (High) 10/10/2019 02:57 EST INR 2.0 (High) 10/09/2019 21:53 EST Cholesterol Tot 246 mg/dL (High) 10/10/2019 02:57 EST Triglyceride 97 mg/dL 10/10/2019 02:57 EST Cholesterol HDL 74.0 mg/dL 10/10/2019 02:57 EST Cholesterol LDL Calculation 152.6 mg/dL (High) 10/10/2019 02:57 EST Cholesterol/HDL Ratio 3.3 (High) 10/10/2019 02:57 EST LDL/HDL Ratio 2.1 10/10/2019 02:57 EST Cholesterol VLDL Calculation 19.4 mg/dL 10/10/2019 02:57 EST documented in this encounter Plan of Treatment Upcoming Encounters Date Type Department Care Team (Late st Contact Info) Description 09/07/2025 10:45 AM EDT Office Visit [facility] Electrophysiology [address] [facility] [address] [place] [address] Adrienne Dunn MD [address] [facility] [address] [place] [address] documented as of this encounter Visit Diagnoses Not on filedocumented in this encounter Care Teams Director Of Hotel Operations Relationship Specialty Start Date End Date Niranjan Mccarty MD [address] [place] [address] PCP - General Adolescent Medicine 10/15/23 documented as of this encounter
--- OUTSIDE RECORDS SUMMARY | 2025-04-27 09:50 | XMS_ITS | Encounter Summary ---
Author Organization [employer] Address [address] [place] [address] Care Team Providers Care Security Operations Engineer Name Role Phone Niranjan Mccarty MD Primary Care Provider [phone] Encounter Details Date Type Department Care Team (Late Contact Info) Description 10/11/2019 Transcribed Document [facility] [place] [facility] [place] [address] ProviderAkash MD [address] [place] [address] Social History Tobacco Use Types Packs/Day Years Used Date Smoking Tobacco: Never Assessed Comments Unknown Sex and Gender Information Value Date Recorded Sex Assigned at Not on file Legal Sex Female 1:32 PM CDT Gender Identity Not on file Sexual Orientation Not on file documented as of this encounter Miscellaneous Notes * Cerner Conversion Note - Akash ProviderMD - 10/11/2019 2:00 AM SOFTWARE TOOLS ENGINEER Bread Dumper Details Entered On: 10/11/2019 2:03 EST Performed On: 10/11/2019 2:00 EST by MEKA MANSFIELD RN Order Details Order Detail : N/A IV Order Detail : 1 Oxygen Order Detail : 1 Nurse Collect Order Detail : 0 Lift/Transfer : Moderate assist Central Line Order Detail : No Room Service : Appropriate Arterial Line : No MEKA MANSFIELD RN - 10/11/2019 2:02 EST Electronically signed by Cecy [facility] Conversion Slide Machine Tender Cerner at 03/07/2023 1:39 PM CDT documented in this encounter Plan of Treatment Upcoming Encounters Date Type Department Care Team (Late Contact Info) Description 09/07/2025 10:45 AM EDT Office Visit [facility] Electrophysiology [address] [facility] [address] [place] [address] Adrienne Dunn MD [address] [facility] [address] [place], [place] [id number] documented as of this encounter Visit Diagnoses Not on filedocumented in this encounter Care Teams Security Operations Engineer Relationship Specialty Start Date End Date Niranjan Mccarty MD [address] [place] [address] PCP - General Adolescent Medicine 10/15/23 documented as of this encounter
--- OUTSIDE RECORDS SUMMARY | 2025-04-27 09:50 | XMS_ITS | Encounter Summary ---
Author Organization [employer] Address [address] [place] [address] Care Team Providers Care Head Teller Name Role Phone Niranjan Mccarty MD Primary Care Provider [phone] Encounter Details Date Type Department Care Team (Late st Contact Info) Description 10/09/2019 Transcribed Document [facility] [place] [address] ProviderAkash MD [address] [place] [address] Social History Tobacco Use Types Packs/Day Years Used Date Smoking Tobacco: Never Assessed Comments Unknown Sex and Gender Information Value Date Recorded Sex Assigned at Not on file Legal Sex Female 1:32 PM CDT Gender Identity Not on file Sexual Orientation Not on file documented as of this encounter Miscellaneous Notes * Cerner Conversion Note - Akash ProviderMD - 10/09/2019 9:18 PM VP ANALYTICS Education-(VTE) / (DVT) Entered On: 10/09/2019 23:43 EST Performed On: 10/09/2019 21:18 EST by MEKA MANSFIELD RN Teaching/Learning Assessment Barriers To Learning : None evident Individuals Taught : Patient Readiness to Learn : Cooperative Learning Style Preferences Patient : Verbal explanation Learning Style Preferences Family : Verbal explanation MEKA MANSFIELD RN - 10/09/2019 23:43 EST Electronically signed by Cecy [facility] Conversion Gas Well Pumper Cerner at 03/07/2023 1:26 PM CDT documented in this encounter Plan of Treatment Upcoming Encounters Date Type Department Care Team (Late st Contact Info) Description 09/07/2025 10:45 AM EDT Office Visit [facility] Electrophysiology [address] [facility] [address] [place] [address] Adrienne Dunn MD [address] [facility] [address] [place] [address] documented as of this encounter Visit Diagnoses Not on filedocumented in this encounter Care Teams Head Teller Relationship Specialty Start Date End Date Niranjan Mccarty MD [address] [place] [address] PCP - General Adolescent Medicine 10/15/23 documented as of this encounter
--- OUTSIDE RECORDS SUMMARY | 2025-04-27 09:50 | XMS_ITS | Encounter Summary ---
Author Organization [employer] Address [address] [place] [address] Care Team Providers Care Surgical Aide Name Role Phone Niranjan Mccarty MD Primary Care Provider [phone] Encounter Details Date Type Department Care Team (Late st Contact Info) Description 10/12/2019 Transcribed Document [facility] [place] Medicine [facility] [place] [address] ProviderAkash MD [address] [place] [address] [id number] Social History Tobacco Use Types Packs/Day Years Used Date Smoking Tobacco: Never Assessed Comments Unknown Sex and Gender Information Value Date Recorded Sex Assigned at Not on file Legal Sex Female 1:32 PM CDT Gender Identity Not on file Sexual Orientation Not on file documented as of this encounter Miscellaneous Notes * Cerner Conversion Note - Akash Vega MD - 10/12/2019 8:49 AM KISS MACHINE OPERATOR Patient: TRAN PEGUERO Age: 83 years Sex: Female : 1935 Associated Diagnoses: None Author: BC LENZ, Student-Pharmacist Coumadin Note HPI: PM is a 83yo F who presents with chest pain. PMH: HTN, HLD, AFib (on Coumadin), SSS s/p pacemaker placement, COPD, and gastric ulcers. Indication: AFib Consulting MD: Imelda Perez Goal INR: 2-3 Home Dose of Warfarin: Warfarin 7.5mg daily Bridge Therapy/ Other anticoagulants: None Labs (Last four charted values) WBC 7.3 (OCT 10) 7.4 (OCT 09) HB L 10.6 (OCT 10) 12.1 (OCT 09) HCT L 33.1 (OCT 10) 36.9 (OCT 09) Plt 198 (OCT 10) 230 (OCT 09) Na 141 (OCT 10) 140 (OCT 09) K 3.9 (OCT 10) L 3.4 (OCT 09) Cl 106 (OCT 10) 105 (OCT 09) CO2 32 (OCT 10) 30 (OCT 09) BUN 12 (OCT 10) 11 (OCT 09) Cr 0.70 (OCT 10) 0.70 (OCT 09) Glu R 87 (OCT 10) 92 (OCT 09) Ca 8.9 (OCT 10) 9.0 (OCT 09) PT H 27.4 (OCT 12) H 25.2 (OCT 11) H 19.9 (OCT 10) H 20.6 (OCT 09) INR H 2.6 (OCT 12) H 2.4 (OCT 11) H 1.9 (OCT 10) H 2.0 (OCT 09) Troponin <0.015 (OCT 10) <0.015 (OCT 09) Current Trend: Date: 10/09 10/10 10/11 10/12 INR: 2.0 1.9 2.4 2.6 Dose: 7.5 7.5 5 (5) Drug Interactions: Carbamazepine - decrease serum conc of Warfarin (major) Tramadol - increase in INR with Warfarin (moderate) A/P: 1) INR is therapeutic, will continue warfarin 5mg today 2) Monitor for s/s of bleeding, H/H, daily PT/INR 3) Will monitor and adjust as needed Bc Jimenez PharmD Candidate 2019 documented in this encounter Plan of Treatment Upcoming Encounters Date Type Department Care Team (Late st Contact Info) Description 09/07/2025 10:45 AM EDT Office Visit [facility] Electrophysiology [address] [facility] [address] [place] [address] Adrienne Dunn MD [address] [place] [address] [address] [place] [address] documented as of this encounter Visit Diagnoses Not on filedocumented in this encounter Care Teams Surgical Aide Relationship Specialty Start Date End Date Niranjan Mccarty MD [address] [place] [address] PCP - General Adolescent Medicine 10/15/23 documented as of this encounter
--- OUTSIDE RECORDS SUMMARY | 2025-04-27 09:50 | XMS_ITS | Encounter Summary ---
Author Organization [employer] Address [address] [facility] [place] [address] Care Team Providers Care Lining Caser Name Role Phone Niranjan Mccarty MD Primary Care Provider [phone] Encounter Details Date Type Department Care Team (Late st Contact Info) Description 10/12/2019 Transcribed Document [facility] [place] [address] ProviderAkash MD [address] [place] [address] Social History Tobacco Use Types Packs/Day Years Used Date Smoking Tobacco: Never Assessed Comments Unknown Sex and Gender Information Value Date Recorded Sex Assigned at Not on file Legal Sex Female 1:32 PM CDT Gender Identity Not on file Sexual Orientation Not on file documented as of this encounter Miscellaneous Notes * Cerner Conversion Note - Akash ProviderMD - 10/12/2019 9:00 AM PLANT PROPAGATOR Pain Assessment Entered On: 10/12/2019 11:21 EST Performed On: 10/12/2019 11:09 EST by Maya Garcia RN Intervention Information: traMADol Performed by Maya Garcia RN on 10/12/2019 10:09:00 EST traMADol,50mg Oral Pain Assessment Pain Assessment : Follow-up assessment Pain Scale Goal : 4 Pain Scale Used : 0-10 Scale Maya Garcia RN - 10/12/2019 11:21 EST Pain Scale Intensity : 2 Maya Garcia RN - 10/12/2019 11:21 EST Image 4 - Images currently included in the form version of this document have not been included in the text rendition version of the form. documented in this encounter Plan of Treatment Upcoming Encounters Date Type Department Care Team (Late st Contact Info) Description 09/07/2025 10:45 AM EDT Office Visit [facility] Electrophysiology [address] [facility] [address] [place] [address] [place] [address] [place] [address] [address] [place] [id number] documented as of this encounter Visit Diagnoses Not on filedocumented in this encounter Care Teams Lining Caser Relationship Specialty Start Date End Date Niranjan Mccarty MD [address] [place] [address] PCP - General Adolescent Medicine 10/15/23 documented as of this encounter
--- OUTSIDE RECORDS SUMMARY | 2025-04-27 09:50 | XMS_ITS | Encounter Summary ---
Author Organization [employer] Address [address] [place] [address] Care Team Providers Care Physical Biochemist Name Role Phone Niranjan Mccarty MD Primary Care Provider [phone] Encounter Details Date Type Department Care Team (Late st Contact Info) Description 10/09/2019 Transcribed Document [facility] [place] [facility] [place] [address] ProviderAkash MD [address] [place] [address] Social History Tobacco Use Types Packs/Day Years Used Date Smoking Tobacco: Never Assessed Comments Unknown Sex and Gender Information Value Date Recorded Sex Assigned at Not on file Legal Sex Female 1:32 PM CDT Gender Identity Not on file Sexual Orientation Not on file documented as of this encounter Miscellaneous Notes * Cerner Conversion Note - Akash Vega MD - 10/09/2019 9:20 PM BASE PLY HAND Consult Phone Call Documentation Entered On: 10/10/2019 10:25 EST Performed On: 10/09/2019 21:20 EST by Delma Cox, [facility] Coord Phone Call for Consults Consult Phone Call/Page Attempt : First call Consult Reason : chest pain, AFIB Physician Requesting Consult : CINTHIA ENNIS MD Physician Requested for Consult : VIRY ESTRADA MD-[facility] Provider Service Notified Name : Cardiology Physician Covering for Consult : zafar Date and Time Call Returned : 10/10/2019 10:25 EST Consult, Additional Information : spoke to [facility] Delma Cox, [facility] Coord - 10/10/2019 10:13 EST Electronically signed by Cecy, [facility] Conversion Gunsmith Apprentice Cerner at 03/07/2023 1:41 PM CDT documented in this encounter Plan of Treatment Upcoming Encounters Date Type Department Care Team (Late st Contact Info) Description 09/07/2025 10:45 AM EDT Office Visit [facility] Electrophysiology [address] [facility] [address] [phone] [place] [address] [place] [address] [address] [place] [phone] documented as of this encounter Visit Diagnoses Not on filedocumented in this encounter Care Teams Physical Biochemist Relationship Specialty Start Date End Date Niranjan Mccarty MD [address] [place] [address] PCP - General Adolescent Medicine 10/15/23 documented as of this encounter
--- OUTSIDE RECORDS SUMMARY | 2025-04-27 09:50 | XMS_ITS | Encounter Summary ---
Author Organization [employer] Address [address] [place] [address] Care Team Providers Care Non Destructive Testing Specialist Name Role Phone Niranjan Mccarty MD Primary Care Provider [phone] Encounter Details Date Type Department Care Team (Late st Contact Info) Description 10/09/2019 Transcribed Document [facility] Family Medicine [facility] [place] [address] ProviderAkash MD [address] [place] [address] Social History Tobacco Use Types Packs/Day Years Used Date Smoking Tobacco: Never Assessed Comments Unknown Sex and Gender Information Value Date Recorded Sex Assigned at Not on file Legal Sex Female 1:32 PM CDT Gender Identity Not on file Sexual Orientation Not on file documented as of this encounter Miscellaneous Notes * Cerner Conversion Note - Akash ProviderMD - 10/09/2019 9:38 PM LINK CUTTER Education-Wound Care Entered On: 10/09/2019 23:43 EST Performed On: 10/09/2019 21:38 EST by MEKA MANSFIELD RN Teaching/Learning Assessment Barriers To Learning : None evident Individuals Taught : Patient Readiness to Learn : Cooperative Learning Style Preferences Patient : Verbal explanation Learning Style Preferences Family : Verbal explanation MEKA MANSFIELD RN - 10/09/2019 23:43 EST documented in this encounter Plan of Treatment Upcoming Encounters Date Type Department Care Team (Late st Contact Info) Description 09/07/2025 10:45 AM EDT Office Visit [address] [place] [id number] Adrienne Dunn MD [address] [facility] [address] [place] [address] documented as of this encounter Visit Diagnoses Not on filedocumented in this encounter Care Teams Non Destructive Testing Specialist Relationship Specialty Start Date End Date Niranjan Mccarty MD [address] [place] [address] PCP - General Adolescent Medicine 10/15/23 documented as of this encounter
--- OUTSIDE RECORDS SUMMARY | 2025-04-27 09:50 | XMS_ITS | Encounter Summary ---
Author Organization [employer] Address [address] [place] [address] Care Team Providers Care Buffet Waiter/Waitress Name Role Phone Niranjan Mccarty MD Primary Care Provider [phone] Encounter Details Date Type Department Care Team (Late st Contact Info) Description 10/09/2019 Transcribed Document [facility] [place] [facility] [place] [address] ProviderAkash MD [address] [place] [address] Social History Tobacco Use Types Packs/Day Years Used Date Smoking Tobacco: Never Assessed Comments Unknown Sex and Gender Information Value Date Recorded Sex Assigned at Not on file Legal Sex Female 1:32 PM CDT Gender Identity Not on file Sexual Orientation Not on file documented as of this encounter Miscellaneous Notes * Cerner Conversion Note - Akash ProviderMD - 10/09/2019 9:00 PM DB2 DBA Admission History, Adult Entered On: 10/09/2019 21:02 EST Performed On: 10/09/2019 21:00 EST by MEKA MANSFIELD, RN Height and Weight, Clinical Dosing Height Source : Stated Height Entry Format : [place] Height, Feet : 5 ft(Converted to: 152 cm, 60 Inch) Height, Inches : 5 Inch(Converted to: 0 ft 5 Inch, 12.70 cm) Clinical Height : 165.1 cm Weight Source : Bed scale Weight Entry Format : [place] Clinical Dosing Weight : 65.51 kg Weight, Pounds : 144 lb Weight, Ounces : 2 oz Body Surface Area (BSA) : 1.72 m2 Body Mass Index : 24 kg/m2 [place] Body Weight : 57 kg MEKA MANSFIELD RN - 10/09/2019 21:00 EST Infectious Disease History Infectious Disease History : Chicken pox/Shingles, Influenza, Measles, Scarlet fever Active Surveillance Screen Assessment : Pt transferred from SNF, LTC, HALF-WAY, or rehab hospital Active Surveillance Screen Positive : Yes Isolation Needed : Contact Fever/Chills Last 48 Hours : No Travel To Regions with Travel Advisories : No Travel Outside [place] Within Last 30 Days : No MEKA MANSFIELD RN - 10/09/2019 21:00 EST Influenza Vaccine Asmt, Adult Previous Vaccines from Immunization Schedule : No qualifying data available. Influenza Immunization, Current Season : No Inactivated Flu Vaccine Contraindications : No contraindications to inactivated influenza vaccine Transplant Workup/Recent Transplant : No Order for Influenza Vaccine : Declined Vaccination MEKA MANSFIELD RN - 10/09/2019 21:00 EST Pneumococcal Vaccine Previous Vaccines from Immunization Schedule : No qualifying data available. Pneumonia Immunization Received : No Pneumococcal Risk Assessment < Age 65 : N/A- Patient 65 years of age or older Pneumococcal Vaccine Contraindications : No contraindications to pneumococcal vaccine Transplant Workup/Recent Transplant : No Order for Pneumococcal Vaccine : Declined Vaccination MEKA MANSFIELD RN - 10/09/2019 21:00 EST documented in this encounter Plan of Treatment Upcoming Encounters Date Type Department Care Team (Late st Contact Info) Description 09/07/2025 10:45 AM EDT Office Visit [facility] Electrophysiology [address] [facility] [address] [place] [phone] [place] [address] [place] [address] [address] [place] [address] documented as of this encounter Visit Diagnoses Not on filedocumented in this encounter Care Teams Buffet Waiter/Waitress Relationship Specialty Start Date End Date Niranjan Mccarty MD [address] [place] [address] PCP - General Adolescent Medicine 10/15/23 documented as of this encounter
--- OUTSIDE RECORDS SUMMARY | 2025-04-27 09:50 | XMS_ITS | Encounter Summary ---
Author Organization [employer] Address [address] [place] [address] Care Team Providers Care Grapple Operator Name Role Phone Niranjan Mccarty MD Primary Care Provider [phone] Encounter Details Date Type Department Care Team (Late st Contact Info) Description 10/11/2019 Transcribed Document [facility] Cardiology [address] [place] [address] [address] [place] [address] [place] [address] [place] [address] [address] [place] [address] Social History Tobacco Use Types Packs/Day Years Used Date Smoking Tobacco: Never Assessed Comments Unknown Sex and Gender Information Value Date Recorded Sex Assigned at Not on file Legal Sex Female 1:32 PM CDT Gender Identity Not on file Sexual Orientation Not on file documented as of this encounter Miscellaneous Notes * Cerner Conversion Note - Viry Galvan MD - 10/11/2019 8:58 AM EST Patient: TRAN PEGUERO Age: 83 years Sex: Female : 1935 Associated Diagnoses: None Author: VIRY GALVAN MD-CAR Basic Information PCP: NIRANJAN MORRIS MD Unix Engineer: Cole SAMUEL Subjective no chest pain. Health Status Current medications: (Selected) Inpatient Medications Ordered Coumadin: 7.5 mg, Oral, Daily Protonix: 40 mg, Oral, Daily TEGretol: 200 mg, Oral, At Bedtime Tylenol: 650 mg, Oral, Q4H, PRN: Pain (Mild 1-3) Xanax: 0.5 mg, Oral, BID, PRN: Anxiety Zofran: 4 mg, IV Push, Q4H, PRN: Nausea albuterol-ipratropium 2.5 mg-0.5 mg/3 mL inhalation solution: 3 mL, Nebulized Inhalation, RT_Q6H, PRN: Wheezing digoxin: 125 mcg, Oral, Daily glycopyrrolate-indacaterol: 1 Each, Inhalation, BID hydrALAZINE: 5 mg, IV Push, Q6H, PRN: Hypertension sotalol: 120 mg, Oral, BID traMADol: 50 mg, Oral, Q12H, Home Medications (12) Active Anoro Ellipta 62.5 [...] mg = 1 Tab, PRN, Oral, BID Problem list: Active Problems (11) Anxiety At risk for sleep apnea Atrial fibrillation Atrial fibrillation Chronic CHF Chronic respiratory failure H/O hyperlipidemia H/O sick sinus syndrome Hyperlipidemia Hypertension Leg swelling Objective Intake and Output 24 hour intake: Total 1,100 ml 24 hour output: Total 825 ml VS/Measurements Vitals Signs (last 24 hrs) Last Charted Minimum Maximum Temp 97.9 (OCT 11 06:07) 97.9 (OCT 11 06:07) 98.4 (OCT 10 15:08) Apical HR 70 (OCT 10 20:06) 60 (OCT 10 08:53) 74 (OCT 10 14:13) Mon HR 65 (OCT 11 06:07) 62 (OCT 10 22:00) 80 (OCT 10 17:51) Resp Rate 18 (OCT 11 06:07) 18 (OCT 10 15:08) H 24 (OCT 10 22:07) SBP 110 (OCT 11 06:07) 110 (OCT 11 06:07) H 166 (OCT 10 22:00) DBP 62 (OCT 11 06:07) 62 (OCT 11 06:07) 86 (OCT 10 22:00) MAP 79 (OCT 11:07) 79 (OCT 10 15:08) 139 (OCT 10 22:00) SpO2 97 (OCT 11 06:00) 96 (OCT 10 15:08) 100 (OCT 10 17:51) General: Alert and oriented, No acute distress. Eye: Pupils are equal, round and reactive to light, Normal conjunctiva, Vision unchanged. HENT: Normocephalic. Neck: Supple, Non-tender, No carotid bruit, No jugular venous distention. Respiratory: Lungs are clear to auscultation, Respirations are non-labored, Breath sounds are equal, Symmetrical chest wall expansion. Cardiovascular: Normal rate, Regular rhythm, No murmur, Good pulses equal in all extremities. Gastrointestinal: Soft, Non-distended, Normal bowel sounds. Musculoskeletal: Normal range of motion, Normal strength. Integumentary: Warm, Dry, Jackpot. Neurologic: Alert, Oriented. Psychiatric: Cooperative, Appropriate mood & affect. Results Review Impression and Plan IMPRESSION: * Recurrent chest pain Negative troponin x 3 * Paroxysmal atrial fibrillation On Warfarin and sotalol * COPD Chronic dyspnea * HTN * HLD PLAN; 10/11/19 going for a stress test today [...] Description 09/07/2025 10:45 AM EDT Office Visit [facility] Electrophysiology [address] [facility] [address] [place] [address] Adrienne Dunn MD [address] [facility] [address] [place] [address] documented as of this encounter Visit Diagnoses Not on filedocumented in this encounter Care Teams Grapple Operator Relationship Specialty Start Date End Date Niranjan Mccarty MD [address] [place] [address] PCP - General Adolescent Medicine 10/15/23 documented as of this encounter
--- OUTSIDE RECORDS SUMMARY | 2025-04-27 09:50 | XMS_ITS | Encounter Summary ---
Author Organization [employer] Address [address] [place] [address] Care Team Providers Care Hide Mill Man Name Role Phone Niranjan Mccarty MD Primary Care Provider [phone] Encounter Details Date Type Department Care Team (Late st Contact Info) Description 10/12/2019 Transcribed Document [facility] [place] [facility] [place] [address] ProviderAkash MD [address] [place] [address] Social History Tobacco Use Types Packs/Day Years Used Date Smoking Tobacco: Never Assessed Comments Unknown Sex and Gender Information Value Date Recorded Sex Assigned at Not on file Legal Sex Female 1:32 PM CDT Gender Identity Not on file Sexual Orientation Not on file documented as of this encounter Miscellaneous Notes * Cerner Conversion Note - Akash ProviderMD - 10/12/2019 6:20 PM PRODUCTION SHIFT SUPERVISOR Nursing Discharge Summary Entered On: 10/12/2019 18:22 EST Performed On: 10/12/2019 18:20 EST by Maya Garcia RN Discharge Documentation Discharge Date/Time : 10/12/2019 18:20 EST Patient Disposition, General : Discharge Discharge To : Home without planned follow-up Mode Of Departure, General Discharge : Private vehicle Accompanied By, Discharge : Daughter IV Discontinued : Yes Discharge Instructions Reviewed With, Opportunity For Questions Given : Patient Patient Education Completed : Yes Teaching Method : Explanation, Printed materials Teaching Evaluation : Verbalizes understanding Education Comment : somewhat forgetful Maya Garcia RN - 10/12/2019 18:20 EST Electronically signed by [facility] Conversion Freelance Digital Project Manager Cerner at 03/07/2023 1:46 PM CDT documented in this encounter Plan of Treatment Upcoming Encounters Date Type Department Care Team (Late st Contact Info) Description 09/07/2025 10:45 AM EDT Office Visit [facility] Electrophysiology [address] [facility] [address] [place] [address] Adrienne Dunn MD [address] [facility] [address] [place] [address] documented as of this encounter Visit Diagnoses Not on filedocumented in this encounter Care Teams Hide Mill Man Relationship Specialty Start Date End Date Niranjan Mccarty MD [address] [place] [address] PCP - General Adolescent Medicine 10/15/23 documented as of this encounter
--- OUTSIDE RECORDS SUMMARY | 2025-04-27 09:50 | XMS_ITS | Encounter Summary ---
Author Organization [employer] Address [address] [place] [address] Care Team Providers Care Clinical Program Manager Name Role Phone Niranjan Mccarty MD Primary Care Provider [phone] Encounter Details Date Type Department Care Team (Late st Contact Info) Description 10/11/2019 Transcribed Document [facility] [place] [facility] [place] [address] ProviderAkash MD [address] [place] [address] Social History Tobacco Use Types Packs/Day Years Used Date Smoking Tobacco: Never Assessed Comments Unknown Sex and Gender Information Value Date Recorded Sex Assigned at Not on file Legal Sex Female 1:32 PM CDT Gender Identity Not on file Sexual Orientation Not on file documented as of this encounter Miscellaneous Notes * Cerner Conversion Note - Akash ProviderMD - 10/11/2019 12:11 PM MERCHANDISE PLANNING MANAGER Attempt to Treat, PT Entered On: 10/11/2019 12:12 EST Performed On: 10/11/2019 12:11 EST by BECKY SHAH PT Attempt to Treat Unable to Treat Due To : Acuity of Illness, Patient Unavailable Inability to Treat Comment : pt off the floor for a stress test. Will check back as time permits Notification : Discussed with BECKY Busch RN, PT - 10/11/2019 12:11 EST documented in this encounter Plan of Treatment Upcoming Encounters Date Type Department Care Team (Late st Contact Info) Description 09/07/2025 10:45 AM EDT Office Visit [facility] Electrophysiology [address] [facility] [address] [place] [address] Adrienne Dunn MD [address] [facility] [address] [place] [address] documented as of this encounter Visit Diagnoses Not on filedocumented in this encounter Care Teams Clinical Program Manager Relationship Specialty Start Date End Date Niranjan Mccarty MD [address] [place] [address] PCP - General Adolescent Medicine 10/15/23 documented as of this encounter
--- OUTSIDE RECORDS SUMMARY | 2025-04-27 09:50 | XMS_ITS | Encounter Summary ---
Author Organization [employer] Address [address] [place] [address] Care Team Providers Care Development Consultant Name Role Phone Niranjan Mccarty MD Primary Care Provider [phone] Encounter Details Date Type Department Care Team (Late st Contact Info) Description 10/10/2019 Transcribed Document [facility] [place] [facility], [facility] [place] [address] ProviderAkash MD [address] [place] [address] Social History Tobacco Use Types Packs/Day Years Used Date Smoking Tobacco: Never Assessed Comments Unknown Sex and Gender Information Value Date Recorded Sex Assigned at Not on file Legal Sex Female 1:32 PM CDT Gender Identity Not on file Sexual Orientation Not on file documented as of this encounter Miscellaneous Notes * Cerner Conversion Note - Akash ProviderMD - 10/10/2019 9:00 AM IRON WORKER Pain Assessment Entered On: 10/10/2019 12:45 EST Performed On: 10/10/2019 9:53 EST by Carlos Burroughs RN Intervention Information: traMADol Performed by Carlos Burroughs RN on 10/10/2019 08:53:00 EST traMADol,50mg Oral Pain Assessment Pain Assessment : Follow-up assessment Pain Scale Goal : 4 Pain Scale Used : 0-10 Scale Carlos Burroughs RN - 10/10/2019 12:44 EST Pain Scale Intensity : 0 Carlos Burroughs RN - 10/10/2019 12:44 EST Image 4 - Images currently included in the form version of this document have not been included in the text rendition version of the form. documented in this encounter Plan of Treatment Upcoming Encounters Date Type Department Care Team (Late st Contact Info) Description 09/07/2025 10:45 AM EDT Office Visit [facility] [address] [place] [address] [address] [place] [address] Adrienne Dunn MD [address] [place] [address] [address] [place] [address] documented as of this encounter Visit Diagnoses Not on filedocumented in this encounter Care Teams Development Consultant Relationship Specialty Start Date End Date Niranjan Mccarty MD [address] [place] [address] PCP - General Adolescent Medicine 10/15/23 documented as of this encounter
--- OUTSIDE RECORDS SUMMARY | 2025-04-27 09:50 | XMS_ITS | Encounter Summary ---
Author Organization [employer] Address [address] [place] [address] Care Team Providers Care Oceanographic Meteorologist Name Role Phone Niranjan Mccarty MD Primary Care Provider [phone] Encounter Details Date Type Department Care Team (Late st Contact Info) Description 10/09/2019 Transcribed Document [facility] [place] [facility] [place] [address] ProviderAkash MD [address] [place] [address] Social History Tobacco Use Types Packs/Day Years Used Date Smoking Tobacco: Never Assessed Comments Unknown Sex and Gender Information Value Date Recorded Sex Assigned at Not on file Legal Sex Female 1:32 PM CDT Gender Identity Not on file Sexual Orientation Not on file documented as of this encounter Miscellaneous Notes * Cerner Conversion Note - Akash ProviderMD - 10/09/2019 8:24 PM TWIST MAKER Admission History, Adult Entered On: 10/09/2019 21:47 EST Performed On: 10/09/2019 20:24 EST by MEKA MANSFIELD RN Advance Directive Patient has Advance Directive *Q : No, patient refuses Advance Directive information MEKA MANSFIELD RN - 10/09/2019 21:40 EST Anesthesia/Transfusion History Family History of Anesthesia Reaction : Prior transfusion reaction Type of Transfusion Reaction : Other: convulsions after a blood transfusion tremors - happened back in the 80s Transfusion History : Prior anesthesia without reaction Family History of Anesthesia Reaction : None MEKA MANSFIELD RN - 10/09/2019 21:40 EST Education Topics, Admission Orientation DCP GENERIC CODE Call Light : Verbalizes understanding, Returns demonstration Patient Safety : Verbalizes understanding, Returns demonstration Siderails use/risks : Verbalizes understanding, Returns demonstration Telemetry Monitoring : Returns demonstration, Verbalizes understanding Television/Phone : Verbalizes understanding, Returns demonstration MEKA MANSFIELD RN - 10/09/2019 21:40 EST Functional Assessment Living Situation : Home WEAVER Hx Falls Immediate/Within 3 Months : No Current Home Treatments : None MEKA MANSFIELD RN - 10/09/2019 21:40 EST General Info Preferred Name : megha Legal Guardian : No Support Person/Patient De Alcoholizer : Yes Support Person/Pt Rep Name : daughter- sherley MEKA MANSFIELD, RN - 10/09/2019 21:40 EST Maya Garcia RN - 10/12/2019 10:14 EST Support Person/Pt Rep Contact Information : sherley- [phone] Want Family/Rep/Phys Notified of Admit : No Emergency Contact #1 : Sandee Emergency Contact #1 Emergency Contact #1 Relationship : daughter Emergency Contact #2 : Dana Emergency Contact #2 Emergency Contact #2 Relationship : sister in law Information Obtained From : Patient Primary Language : Jordanian Preferred Communication Mode : Verbal Communication Barrier : None MEKA MANSFIELD RN - 10/09/2019 21:40 EST Fall Risk Scales ABCs Fall Injury Risk Identification : Age, Bones, Coagulation ABC Fall Injury Risk : Moderate to high injury risk Injury Moderate to High Risk Interventions : Transport methods appropriate to patient WEAVER Hx Falls Immediate/Within 3 Months : No Weaver Secondary Diagnosis : Yes WEAVER Use of Ambulatory Aid : Bed rest/Nurse assist WEAVER IV Therapy or IV Access : Yes Weaver Gait/Transferring : Weak Weaver Mental Status : Oriented to own ability Weaver Fall Risk Score : 45 WEAVER Fall Scale Risk Level : 25-45 Medium Risk [place] Fall Interventions : Adequate lighting, Assistive devices within reach, Bed in low position, Call device within reach, Fall prevention handout/education per facility policy, Frequent orientation to call device, Frequent orientation to surroundings, Hourly comfort/safety rounds, Non-slip footwear, Personal items within reach, Reinforced to call for assistance before getting out of bed, Room free of clutter/spills, Upper side-rails up, Wheels locked, Wires/Cords secured Fall Risk Scale Calc Temp : 0 MANSFIELD, MEKA, RN - 10/09/2019 21:40 EST Health Histories Smoking Status : Never (less than 100 in lifetime; none in last 30 days) Smokeless Tobacco Status : Never MEKA MANSFIELD RN - 10/09/2019 21:40 EST Social History (As Of: 10/09/2019 21:47:48 EST) Tobacco: Use in Last 12 Months: No. (Last Updated: 12/08/2014 08:21:41 EST by JOSE TYSON RN) Never (less than 100 in lifetime) Smoking Status. (Last Updated: 07/11/2018 20:18:12 EDT by BRAYAN LUNA RN) Alcohol: Alcohol Use History No. (Last Updated: 12/08/2014 08:21:45 EST by JOSE TYSON RN) Alcohol Use History No. Use in Last 12 Months: No. (Last Updated: 07/11/2018 20:18:12 EDT by BRAYAN LUNA RN) Substance Abuse: Drug Use Hx: No. Use in Last 12 Months: No. (Last Updated: 12/08/2014 08:21:50 EST by JOSE TYSON RN) Drug Use Hx: No. Use in Last 12 Months: No. (Last Updated: 07/11/2018 20:18:12 EDT by BRAYAN LUNA RN) Nutrition/Health: Regular (Last Updated: 07/11/2018 20:18:12 EDT by BRAYAN LUNA RN) Home/Environment: Lives with Spouse. (Last Updated: 07/11/2018 20:18:12 EDT by BRAYAN LUNA RN) Height and Weight, Clinical Dosing Height Source : Stated Height Entry Format : [place] Height, Feet : 5 ft(Converted to: 152 cm, 60 Inch) Height, Inches : 5 Inch(Converted to: 0 ft 5 Inch, 12.70 cm) Clinical Height : 165.1 cm Weight Source : Bed scale Weight Entry Format : [place]ett Clinical Dosing Weight : 65.51 kg Weight, Pounds : 144 lb Weight, Ounces : 2 oz Body Surface Area (BSA) : 1.72 m2 Body Mass Index : 24 kg/m2 [place] Body Weight : 57 kg MEKA MANSFIELD RN - 10/09/2019 21:40 EST Infectious Disease History Infectious Disease History : Chicken pox/Shingles, Influenza, Measles, Scarlet fever Active Surveillance Screen Assessment : Patient transferred from another hospital/ED Active Surveillance Screen Positive : Yes Isolation Needed : Contact Fever/Chills Last 48 Hours : No Travel To Regions with Travel Advisories : No Travel Outside [place] Within Last 30 Days : No Contact With Traveler to Advisory Region : No Tuberculosis Symptoms : None MEKA MANSFIELD RN - 10/09/2019 21:40 EST Influenza Vaccine Asmt, Adult Previous Vaccines from Immunization Schedule : No qualifying data available. Influenza Immunization, Current Season : No Inactivated Flu Vaccine Contraindications : No contraindications to inactivated influenza vaccine Transplant Workup/Recent Transplant : No Order for Influenza Vaccine : Declined Vaccination MEKA MANSFIELD RN - 10/09/2019 21:40 EST Pneumococcal Vaccine Previous Vaccines from Immunization Schedule : No qualifying data available. Pneumonia Immunization Received : No Pneumococcal Risk Assessment < Age 65 : N/A- Patient 65 years of age or older Pneumococcal Vaccine Contraindications : No contraindications to pneumococcal vaccine Transplant Workup/Recent Transplant : No Order for Pneumococcal Vaccine : Declined Vaccination MEKA MANSFIELD RN - 10/09/2019 21:40 EST Nutrition History Feeding Ability : Independent Adaptive Feeding Equipment : Regular Oral Medication Administration : By mouth Eating Poorly Due to Decreased Appetite : No Unplanned Weight Loss in Past 3-6 Months : No Malnutrition Screening Tool Total(mal) : 0 Malnutrition Screening Tool Risk Level : Patient not at risk MEKA MANSFIELD RN - 10/09/2019 21:40 EST [place] Suicide Severity Rating Scale (C-SSRS) CSSRS Past Month Wish to be : No CSSRS Past Month Suicidal Thoughts : No CSSRS Lifetime Suicide Behavior : No Suicide Severity Rating Score : 0 Suicide Severity Rating : No Additional Care Required at this time MEKA MANSFIELD RN - 10/09/2019 21:40 EST Psychosocial History Do You Have a History of the Following? : Anxiety Currently in Unsafe Situation : No MEKA MANSFIELD RN - 10/09/2019 21:40 EST Sleep Apnea Risk Assmt Hx of Obstructive Sleep Apnea Diagnosis : No Snore Loudly : No Tired, Fatigued, or Sleepy During Day : Yes Observed Stopping Breathing During Sleep : No Have/Are Being Treated for Hypertension : Yes BMI Greater Than 35 kg/m2 : No Age over 50 Years Old : Yes Neck Circumference Greater Than 40 cm : No Gender Male : No STOP-BANG Sleep Apnea Risk Level Score : 3 MEKA MANSFIELD RN - 10/09/2019 21:40 EST Valuables and Belongings Valuables and Belongings : Clothing, Jewelry, Personal devices, Personal items Clothing : Common streetwear Clothing Disposition : With patient, Declines to send to security/safe Personal Device Disposition : With patient, Declines to send to security/safe Jewelry : Earrings, Ring Jewelry Disposition : With patient, Declines to send to security/safe Personal Devices : Dentures, upper, Dentures, lower, Glasses Personal Items : Cell phone Personal Items Disposition : With patient, Declines to send to security/safe MEKA MANSFIELD RN - 10/09/2019 21:40 EST Electronically signed by Cecy, [facility] Conversion Director Of Science Cerner at 03/07/2023 1:48 PM CDT documented in this encounter Plan of Treatment Upcoming Encounters Date Type Department Care Team (Late st Contact Info) Description 09/07/2025 10:45 AM EDT Office Visit [facility] Electrophysiology [address] [facility] [address] [place] [address] Adrienne Dunn MD [address] [facility] [address] [place] [address] documented as of this encounter Visit Diagnoses Not on filedocumented in this encounter Care Teams Oceanographic Meteorologist Relationship Specialty Start Date End Date Niranjan Mccarty MD [address] [place] [address] PCP - General Adolescent Medicine 10/15/23 documented as of this encounter
--- OUTSIDE RECORDS SUMMARY | 2025-04-27 09:50 | XMS_ITS | Encounter Summary ---
Author Organization [employer] Address [address] [address] Care Team Providers Care Insurance Examining Clerk Name Role Phone Niranjan Mccarty MD Primary Care Provider [phone] Encounter Details Date Type Department Care Team (Late st Contact Info) Description 10/09/2019 Transcribed Document [facility] [place] [facility] [place] [address] ProviderAkash MD [address] [place] [id number] Social History Tobacco Use Types Packs/Day Years Used Date Smoking Tobacco: Never Assessed Comments Unknown Sex and Gender Information Value Date Recorded Sex Assigned at Not on file Legal Sex Female 1:32 PM CDT Gender Identity Not on file Sexual Orientation Not on file documented as of this encounter Miscellaneous Notes * Cerner Conversion Note - Akash Vega MD - 10/09/2019 9:22 PM TARGETING ACQUISITION OFFICER Patient: TRAN PEGUERO Age: 83 Years Sex: Female : 1935 Chief Complaint Chest pain Primary Care Provider NIRANJAN MORRIS [facility] History of Present Illness Patient is an 83-year-old female with past medical history of hypertension, hyperlipidemia, atrial fibrillation, SSS status post pacemaker placement, chronic anticoagulation with Coumadin, COPD on home oxygen, gastric ulcer who [facility] with complaints of chest pain. Patient reports that her neck has been bothering her for the last week. She reports that her neck is sore. This morning, she started having left-sided chest pain that was radiating to her neck on the left side. She describes the pain as strong pain that she rated at 8/10 in intensity. Her pain resolved but then recurred. She did report some associated nausea. She reports that she has been short of breath on a daily basis for the last several months and is not sure if she had any worsening shortness of breath with episode of chest pain. She does report episodes of getting hot and then feeling like she is about to pass out. She states that these episodes frequently happen in the morning. She also states that her left arm has been hurting all week. She denies any, fever or chills. Lab workup at [facility] showed WBC count 5.6, hemoglobin 11.7, platelets 275, sodium 136, potassium 3.8, BUN 14, creatinine 0.75, blood glucose 85. Chest x-ray did not show any acute abnormality. EKG reportedly showed dual paced rhythm and troponin was reportedly negative however I did not see EKG strip or troponin level in the chart. Patient currently reports feeling uncomfortable in her chest but denies any significant chest pain. Patient requested transfer to [facility] to be evaluated by her machine grinder here. Review of Systems Pertinent positives and negatives noted in history of present illness. All other systems reviewed and are negative. Vital Signs T: 36.8 ??C HR: 78(Monitored) RR: 17 BP: 147/80 SpO2: 96% HT: 165.1 cm WT: 65.51 kg BMI: 24 Oxygen Settings (Last) Oxygen Therapy Mode: Room air (10/09/19 20:46:00) Physical Exam General: [Alert and oriented, well [...] regular rhythm, no murmur, gallop or edema]. Abdomen: [Soft, non-tender, non-distended, normal bowel sounds, no masses]. Musculoskeletal: [Left-sided chest wall tenderness to palpation noted, no significant tenderness in the neck]. Skin: [Skin is warm, dry and pink, no rashes or lesions]. Psychiatric: [Cooperative, appropriate mood and affect]. Assessment/Plan Chest pain Could be musculoskeletal but cannot rule out underlying cardiac disease Admit to telemetry Check EKG, serial troponins Nitroglycerin sublingual when necessary for recurrent chest pain Consult cardiology NPO past midnight Hypertension Continue home medications [...] ulcer Continue PPI Anxiety Continue home meds Plan of care was discussed with patient and she is in agreement. CODE STATUS is full code DVT prophylaxis: Patient is on Coumadin Time spent 55 minutes. Ordered: acetaminophen, 650 mg, Oral, Tab, Q4H, PRN for Pain (Mild 1-3), Routine, Start 10/09/19 21:18:00 EST ondansetron, 4 mg, IV Push, Inj, Q4H, PRN for Nausea, Routine, Start 10/09/19 21:18:00 EST BMP Basic Metabolic Panel BMP Basic Metabolic Panel CBC w/ Auto Diff CBC w/ Auto Diff Consult to Physician DVT VTE Prophylaxis Education ECG Facility Protocol Intake and Output Notify Provider Vital Signs NPO after Midnight PT Evaluation and Treatment PT/INR Prothrombin Time Resuscitation Status Troponin I Ultra Troponin I Ultra Up Ad Tamika Vital Signs VTE Prophylaxis - Medical No VTE Prophylaxis Orders. Problem List/Past Medical History Ongoing Anxiety Atrial fibrillation Chronic CHF Chronic respiratory failure H/O hyperlipidemia H/O sick sinus syndrome Leg swelling Historical No qualifying data Procedure/Surgical History EXTRACTION OF STOMACH, PYLORUS, ENDO, DIAGN (07/16/2018), INSPECTION OF LOWER INTESTINAL TRACT, ENDO (07/16/2018), Appendectomy;., cataract surgery, Cholecystectomy;., eye surgery, foot surgery right, hand surgery, hemorrhoidectomy, hysterectomy- total, pacemaker placement, skin cancer left arm removed, tonsillectomy, tumor on neck - removed.. Home Medications (10) Active Anoro Ellipta 62.5 mcg-25 mcg/inh inhalation [...] mg = 1 Tab, Oral, At Bedtime torsemide 20 mg oral tablet 20 mg = 1 Tab, PRN, Oral, Daily Xanax 0.5 mg oral tablet 0.5 mg = 1 Tab, PRN, Oral, BID Allergies Advicor Radha Biaxin Claritin Percodan Vioxx aspirin-oxyCODONE azithromycin cefuroxime cephalexin ciprofloxacin clarithromycin codeine cortisone erythromycin fexofenadine iodinated radiocontrast dyes loratadine penicillins phytonadione rofecoxib sulfADIAZINE tetracaine Social History Alcohol Alcohol Use History No. Use in Last 12 Months: No. Alcohol Use History No. Home/Environment Lives with Spouse. Nutrition/Health Regular Substance Abuse Drug Use Hx: No. Use in Last 12 Months: No. Drug Use Hx: No. Use in Last 12 Months: No. Tobacco Never (less than 100 in lifetime) Smoking Status. Use in Last 12 Months: No. Patient states that she has never smoked. She does not drink alcohol or use recreational drugs. Family History Positive for ovarian cancer and non-Hodgkin's lymphoma. Diagnostic Results See history of present illness. Lab Results See history of present illness. Additional Documentation Code Status Start: 10/09/19 21:18:00 EST, Full Code, Continuous Order documented in this encounter Plan of Treatment Upcoming Encounters Date Type Department Care Team (Late st Contact Info) Description 09/07/2025 10:45 AM EDT Office Visit [facility] Electrophysiology [address] [place] [address] [address] Adrienne Dunn MD [address] [place] [address] [address] [place] [address] documented as of this encounter Visit Diagnoses Not on filedocumented in this encounter Care Teams Insurance Examining Clerk Relationship Specialty Start Date End Date Niranjan Mccarty MD [address] [place] [address] PCP - General Adolescent Medicine 10/15/23 documented as of this encounter
--- OUTSIDE RECORDS SUMMARY | 2025-04-27 09:50 | XMS_ITS | Encounter Summary ---
Author Organization [employer] Address [address] [place] [address] Care Team Providers Care Ship Design Teacher Name Role Phone Niranjan Mccarty MD Primary Care Provider [phone] Encounter Details Date Type Department Care Team (Late st Contact Info) Description 10/11/2019 Transcribed Document [facility] [place] [facility] [place] [address] ProviderAkash MD [address] [place] [address] Social History Tobacco Use Types Packs/Day Years Used Date Smoking Tobacco: Never Assessed Comments Unknown Sex and Gender Information Value Date Recorded Sex Assigned at Not on file Legal Sex Female 1:32 PM CDT Gender Identity Not on file Sexual Orientation Not on file documented as of this encounter Miscellaneous Notes * Cerner Conversion Note - Akash Vega MD - 10/11/2019 9:21 AM TOOL PROCUREMENT COORDINATOR Patient: TRAN PEGUERO Age: 83 years Sex: Female : 1935 Associated Diagnoses: None Author: CB LENZ, Student-Pharmacist Coumadin Note HPI: PM is [...] (OCT 10) 9.0 (OCT 09) PT H 25.2 (OCT 11) H 19.9 (OCT 10) H 20.6 (OCT 09) INR H 2.4 (OCT 11) H 1.9 (OCT 10) H 2.0 (OCT 09) Troponin <0.015 (OCT 10) <0.015 (OCT 09) Current Trend: Date: 10/09 10/10 10/11 INR: 2.0 1.9 2.4 Dose: 7.5 7.5 (5) Drug Interactions: Carbamazepine - decrease serum conc of Warfarin (major) Tramadol - increase in INR with Warfarin (moderate) A/P: 1) INR is therapeutic but increased significantly, will give warfarin 5mg today to ensure the INR levels off and adjust as needed 2) Monitor for s/s of bleeding, H/H, daily PT/INR 3) Will monitor and adjust as needed Bc Jimenez PharmD Candidate 2019 documented in this encounter Plan of Treatment Upcoming Encounters Date Type Department Care Team (Late st Contact Info) Description 09/07/2025 10:45 AM EDT Office Visit [facility] Electrophysiology [address] [facility] [address] [place] [address] [place] [address] [place] [address] [address] [place], [place] [id number] documented as of this encounter Visit Diagnoses Not on filedocumented in this encounter Care Teams Ship Design Teacher Relationship Specialty Start Date End Date Niranjan Mccarty MD [address] [place] [address] PCP - General Adolescent Medicine 10/15/23 documented as of this encounter
--- OUTSIDE RECORDS SUMMARY | 2025-04-27 09:50 | XMS_ITS | Encounter Summary ---
Author Organization [employer] Address [address] [place] [address] Care Team Providers Care Airline Flight Attendant Name Role Phone Niranjan Mccarty MD Primary Care Provider [phone] Encounter Details Date Type Department Care Team (Late st Contact Info) Description 10/12/2019 Transcribed Document [facility] [place] [address] ProviderAkash MD [address] [place] [address] Social History Tobacco Use Types Packs/Day Years Used Date Smoking Tobacco: Never Assessed Comments Unknown Sex and Gender Information Value Date Recorded Sex Assigned at Not on file Legal Sex Female 1:32 PM CDT Gender Identity Not on file Sexual Orientation Not on file documented as of this encounter Miscellaneous Notes * Cerner Conversion Note - Akash Vega MD - 10/12/2019 9:39 AM COMMISSIONER PUBLIC WORKS Stroke/Warfarin Instructions Entered On: 10/12/2019 9:39 EST Performed On: 10/12/2019 9:39 EST by Herberth Guevara, PAPITO Stroke/Warfarin Instructions Stroke/TIA Discharge Ins : N/A Warfarin Discharge Ins : Open Herberth Guevara RN - 10/12/2019 9:39 EST Warfarin Discharge Instructions Indication for Warfarin Anticoagulation : Atrial fibrillation Warfarin Anticoagulation Disposition : Continuation of pre-hospital treatment Last INR Result : INR: 2.6 (High), Reference Range: (0.9 - 1.1), 10/12/2019 3:23 AM DIAGNOSIS THERAPEUTIC RANGE a) Primary and secondary prevention of 2.0-3.0 venous thrombosis b) Active venous thrombosis, pulmonary 2.0-4.0 embolism and prevention of recurrent venous thrombosis c) Prevention of arterial thromboembolism 3.0-4.5 including patients with mechanical heart valves Notify Provider of Signs/Symptoms of : Significant bleeding, Clot Herberth Guevara, RN - 10/12/2019 9:39 EST Electronically signed by [facility], [facility] Conversion Rod Machine Operator Cerner at 03/07/2023 1:37 PM CDT documented in this encounter Plan of Treatment Upcoming Encounters Date Type Department Care Team (Late st Contact Info) Description 09/07/2025 10:45 AM EDT Office Visit [facility] Electrophysiology [address] [facility] [address] [place] [address] Adrienne Dunn MD [address] [facility] [address] [place] [address] documented as of this encounter Visit Diagnoses Not on filedocumented in this encounter Care Teams Airline Flight Attendant Relationship Specialty Start Date End Date Niranjan Mccarty MD [address] [place] [address] PCP - General Adolescent Medicine 10/15/23 documented as of this encounter
--- OUTSIDE RECORDS SUMMARY | 2025-04-27 09:50 | XMS_ITS | Encounter Summary ---
Author Organization [employer] Address [address] [place] [address] Care Team Providers Care School Commissioner Name Role Phone Niranjan Mccarty MD Primary Care Provider [phone] Encounter Details Date Type Department Care Team (Late st Contact Info) Description 10/09/2019 Transcribed Document [facility] [place] Family Medicine [facility] [place] [address] ProviderAkash MD [address] [place] [address] Social History Tobacco Use Types Packs/Day Years Used Date Smoking Tobacco: Never Assessed Comments Unknown Sex and Gender Information Value Date Recorded Sex Assigned at Not on file Legal Sex Female 1:32 PM CDT Gender Identity Not on file Sexual Orientation Not on file documented as of this encounter Miscellaneous Notes * Cerner Conversion Note - Akash ProviderMD - 10/09/2019 9:18 PM PLANT CYTOLOGIST Evaluation, Physical Therapy Entered On: 10/10/2019 10:57 EST Performed On: 10/10/2019 10:39 EST by VAN MCKEON PT General Information, PT Visit Type, PT : Initial evaluation Patient Orders : Order Date Order Ordering 10/09/2019 21:18 PT Evaluation and Treatment Ordered By: CINTHIA ENNIS MD Active Diagnoses : No Qualifying Diagnoses Therapy Diagnosis, PT : decreased functional mobility and activity tolerance Onset of Problem, PT : 10/09/2019 EST Admission Date : 10/09/2019 20:29 Personal Devices : Personal Devices Dentures, upper, Dentures, lower, Glasses Assistive Devices : Assistive Devices No Devices Recorded General Information Comment, PT : Dx: chest pain PMH: anxiety, afib, CHF, respiratory failure, HLD, leg swelling VAN MCKEON, PT - 10/10/2019 10:39 EST General Status Patient Received Status : Supine in bed Treatment Start Time : 10/10/2019 9:43 EST Patient Left Status : Supine in bed, Family/Visitors at bedside, Communication board completed, All needs met and within reach RN/PCT Informed Comment : Carlos Treatment End Time : 10/10/2019 10:18 EST Treatment Time : 35 Minute(s) VAN MCKEON, PT - 10/10/2019 10:39 EST History and Environment Living Situation, Therapy : Home Patient Lives With : Spouse Persons Providing Information : Patient Home Equipment Therapy, PT : Commode, Other: tall walking stick Home Setup : One story Stairs : Yes Stair Location(s) : Outside Outside Stairs, Number of Steps : 2 VAN MCKEON, PT - 10/10/2019 10:39 EST Prior Level of Function PT GRID Prior LOF Ambulation, Household : Independent Prior LOF Bed Mobility : Independent Prior LOF Toileting : Independent Prior LOF Transfer : Independent VAN MCKEON, PT - 10/10/2019 10:39 EST Functional Mobility Mobility Grid Supine to Sit : Supervision/set-up Sit to Stand : Rehab Minimal assistance Bed to Chair : Supervision/set-up Stand to Sit : Supervision/set-up Sit to Supine : Supervision/set-up VAN MCKEON PT - 10/10/2019 10:39 EST Gait Training/Assessment, PT Gait Assistance Level : Supervision Walking Distance : 20' Ambulatory Devices : Gait belt, Walker, front wheel VAN MCKEON, PT - 10/10/2019 10:39 EST Cognition Assessment, PT Orientation : Oriented x 4 VAN MCKEON PT - 10/10/2019 10:39 EST [facility] Topics Physical Therapy Education Grid Role of Physical Therapy : Verbalizes understanding VAN MCKEON, PT - 10/10/2019 10:39 EST Indication Assesessment, PT Physical Therapy Indicated : Yes PT Problem List : Impaired, activities daily living, Impaired, bed mobility, Impaired, coordination/proprioception, Impaired, endurance tolerance, Impaired, gait, Impaired, standing balance, Impaired, strength, Impaired, transfers, Pain limiting function Potential Barriers To Therapy : Pain Rehabilitation Potential : Fair VAN MCKEON, PT - 10/10/2019 10:39 EST Plan of Care, PT PT Tx Plan/Goals Established w Patient : Yes PT Frequency Rehab : Five days per week PT Duration Rehab : Fourteen days PT Treatments Planned : Balance training, Bed mobility training, Gait training, Safety education, Therapeutic exercises, Transfer training DORY MCKEONLYNN, PT - 10/10/2019 10:39 EST Banquet Kitchen Supervisor Goals Mobility/Bed Mobility LTG PT Grid Goal #1 Activity : Supine to sit Assist : Independent, complete Date to Meet : 10/24/2019 EST Goal Status : Intial Goal MIKE, VAN, PT - 10/10/2019 10:39 EST Ambulation LTG Grid Goal #1 Device : Walker, front wheel Distance : 100' with fluid gait pattern Assist : Independent, modified Date to Meet : 10/24/2019 EST Goal Status : Intial Goal VAN MCKEON, PT - 10/10/2019 10:39 EST Treatment Note Subjective Comment : Patient agrees to PTx. RN ok'd PTx. Additional Objective Information : Patient very resistant to donnning gait belt and would wince in pain with the gait belt lightly touching her back. Patient frequently pushed PT's hand away from gait belt throughout PTx stating that it hurt her back because her nerves are raw despite PT gently holding onto belt away from patient's back. Patient frequently refused PT's requests because they would hurt her back . Patient resisted use of a walker stating that she hangs on the damon and furniture at home. After educating patient that use of Rwx is safer patient stated that she did not want to use Rwx because it would hurt her arms and walkers are not good for her back. Patient required several cues to keep hands on walker and advance walker as she would reach out for the wall. Patient also adamantly refused to turn right during ambulation because she stated that it would hurt her back and turned L despite becoming tangled in lines. Patient took extended breaks between every step stating that her back hurt which dramatically slowed her gait speed and created a step to pattern with small steps. Patient also transfered to [facility] [place] with supervision and required extended time. Patient moves very slowly and cautiously but is able to complete most movements with supervision. Assessment : Patient demonstrates decreased independence and safety with functional mobility, transfers, and gait. Patient also demonstrates decreased activity tolerance and dynamic balance. Patient would benefit from skilled PT services in order to improve in these areas and return to PLOF. Plan for Treatment : Continue POC. VAN MCKEON, PT - 10/10/2019 10:39 EST Pain Assessment Pain Scaled Used : 0-10 Pain scale Pain Score Pre-Intervention : 5 Location : Other: whole body Pain Improved by : Medication Pain Improved by Intervention : Yes VAN MCKEON, PT - 10/10/2019 10:39 EST Image 1 - Images currently included in the form version of this document have not been included in the text rendition version of the form. Anticipated Discharge Needs, OT/PT Anticipated Discharge to : Home, with home health Recommend Continued Therapy at Discharge : Yes VAN MCKEON, PT - 10/10/2019 10:39 EST [place] PT Charges PT Therap. Exercise 15 min : 1 PT Ther Activities Ea 15 Min : 1 PT Eval Moderate Complexity : 1 VAN MCKEON, PT - 10/10/2019 10:39 EST documented in this encounter Plan of Treatment Upcoming Encounters Date Type Department Care Team (Late st Contact Info) Description 09/07/2025 10:45 AM EDT Office Visit [facility] Electrophysiology [address] [facility] [address] [place] [phone] Adrienne Dunn MD [address] [place] [address] documented as of this encounter Visit Diagnoses Not on filedocumented in this encounter Care Teams School Commissioner Relationship Specialty Start Date End Date Niranjan Mccarty MD [address] [place] [address] PCP - General Adolescent Medicine 10/15/23 documented as of this encounter
--- OUTSIDE RECORDS SUMMARY | 2025-04-27 09:50 | XMS_ITS | Encounter Summary ---
Author Organization [employer] Address [address] [place] [address] Care Team Providers Care Drilling Foreman Name Role Phone Niranjan Mccarty MD Primary Care Provider [phone] Encounter Details Date Type Department Care Team (Late st Contact Info) Description 10/12/2019 Transcribed Document [facility] [place] Family Medicine [facility] [place] [address] ProviderAkash MD [address] [place] [address] Social History Tobacco Use Types Packs/Day Years Used Date Smoking Tobacco: Never Assessed Comments Unknown Sex and Gender Information Value Date Recorded Sex Assigned at Not on file Legal Sex Female 1:32 PM CDT Gender Identity Not on file Sexual Orientation Not on file documented as of this encounter Miscellaneous Notes * Cerner Conversion Note - Akash Vega MD - 10/12/2019 9:35 AM MARINE ARCHITECT Patient: TRAN PEGUERO Age: 83 years Sex: Female : 1935 Associated Diagnoses: None Author: USAMA SOARES MD-INT Admission date: 10/09/2019 Discharge date: 10/12/2019 Discharge Diagnosis: Chest pain, likely musculoskeletal, stress test is negative Hypertension Hyperlipidemia History of A. fib status post permanent pacemaker placement COPD, on home oxygen History of gastric ulcer Anxiety Consults: ====== Cardiology Procedures: ========= Stress test Diet: === cardiac diet Condition at discharge: stable Physical Exam: General: [Alert and oriented, well nourished, no acute distress]. Neurologic: [Awake, alert, and oriented X3, CN II-XII intact]. Lungs: [Clear to auscultation and percussion, non-labored respiration]. Heart: [Normal rate, regular rhythm, no murmur, gallop or edema]. Chest is tender on palpation Abdomen: [Soft, non-tender, non-distended, normal bowel sounds, no masses]. Musculoskeletal: [Left-sided chest wall tenderness to palpation noted, no significant tenderness in the neck]. Skin: [Skin is warm, dry and pink, no rashes or lesions]. Psychiatric: [Cooperative, appropriate mood and affect] Labs: ==== Labs (Last four charted values) WBC 7.3 [...] Troponin <0.015 (OCT 10) <0.015 (OCT 09) Home Medications: Discharge Medications (11) Active Anoro Ellipta 62.5 mcg-25 mcg/inh inhalation powder 1 Puff, Inhalation, Daily Digox 250 mcg (0.25 mg) oral [...] PRN, Oral, Daily traMADol 50 mg, Q12H warfarin 5 mg oral tablet 5 mg = 1 Tab, Oral, Daily Xanax 0.5 mg oral tablet 0.5 mg = 1 Tab, PRN, Oral, BID Follow up: ======= Follow up with PCP in 1-2 weeks Follow-up with cardiology in 2-4 weeks Disposition: ======== home Discharge Summary: Patient is an 83-year-old female with past medical history of hypertension, hyperlipidemia, atrial fibrillation, SSS status post pacemaker placement, chronic anticoagulation with Coumadin, COPD on home oxygen, gastric ulcer who presented to [facility] ER today with complaints of chest pain. [...] any, fever or chills. Lab workup at [facility] showed WBC count 5.6, hemoglobin 11.7, platelets [...] significant chest pain. Patient requested transfer to [facility] to be evaluated by her welder machine operator here. She was admitted to telemetry. Troponin was negative. Cardiology was consulted. Patient underwent to stress test which came back negative. Her pain likely musckulskeletal in nature. Cardiology recommended to continue current medication and follow with cardiology as outpatient. He was seen by cardiology who. Her for discharge from their standpoint. She is vitally stable, will be discharge home and follow with PCP and cardiology. Time spent 32 min documented in this encounter Plan of Treatment Upcoming Encounters Date Type Department Care Team (Late st Contact Info) Description 09/07/2025 10:45 AM EDT Office Visit [facility] [place] [facility] Electrophysiology [address] [facility] [address] [place] [phone] Adrienne Dunn MD [address] [facility] [address] [place] [address] documented as of this encounter Visit Diagnoses Not on filedocumented in this encounter Care Teams Drilling Foreman Relationship Specialty Start Date End Date Niranjan Mccarty MD [address] [place] [address] PCP - General Adolescent Medicine 10/15/23 documented as of this encounter
--- OUTSIDE RECORDS SUMMARY | 2025-04-27 09:50 | XMS_ITS | Encounter Summary ---
Author Organization [employer] Address [address] [place] [address] Care Team Providers Care Lean Consultant Name Role Phone Niranjan Mccarty MD Primary Care Provider [phone] Encounter Details Date Type Department Care Team (Late st Contact Info) Description 10/12/2019 Transcribed Document [facility] Cardiology [address] [place] [address] [address] [place] [address] [place] [address] [place] [address] [address] [place] [address] Social History Tobacco Use Types Packs/Day Years Used Date Smoking Tobacco: Never Assessed Comments Unknown Sex and Gender Information Value Date Recorded Sex Assigned at Not on file Legal Sex Female 1:32 PM CDT Gender Identity Not on file Sexual Orientation Not on file documented as of this encounter Miscellaneous Notes * Cerner Conversion Note - Constantine Galvan MD - 10/12/2019 5:09 PM EST DATE OF SERVICE: STUDY: Stress test with myocardial perfusion scan. This patient underwent a Lexiscan myocardial perfusion study, the EKG portion of which was unremarkable. NUCLEAR SCAN: There appears to be a normal myocardial perfusion. Normal wall motion and wall thickening appreciated. Ejection fraction by gated SPECT is 60%. IMPRESSION: 1. Normal study. 2. Ejection fraction is 60%. /[id number] MD POLINA Carvalho/AQ / POLINA / SIMAL /[id number] documented in this encounter Plan of Treatment Upcoming Encounters Date Type Department Care Team (Late st Contact Info) Description 09/07/2025 10:45 AM EDT Office Visit [facility] Electrophysiology [address] [facility] [address] [place] [address] [place] [address] [place] [address] [address] [place] [address] documented as of this encounter Visit Diagnoses Not on filedocumented in this encounter Care Teams Lean Consultant Relationship Specialty Start Date End Date Niranjan Mccarty MD [address] [place] [address] PCP - General Adolescent Medicine 10/15/23 documented as of this encounter
--- OUTSIDE RECORDS SUMMARY | 2025-04-27 09:50 | XMS_ITS | Encounter Summary ---
Author Organization [employer] Address [address] [place] [address] Care Team Providers Care Material Spreader Name Role Phone Niranjan Mccarty MD Primary Care Provider [phone] Encounter Details Date Type Department Care Team (Late Contact Info) Description 10/09/2019 Transcribed Document [facility] [place] [facility] [place] [address] ProviderAkash MD [address] [place] [address] Social History Tobacco Use Types Packs/Day Years Used Date Smoking Tobacco: Never Assessed Comments Unknown Sex and Gender Information Value Date Recorded Sex Assigned at Not on file Legal Sex Female 1:32 PM CDT Gender Identity Not on file Sexual Orientation Not on file documented as of this encounter Miscellaneous Notes * Cerner Conversion Note - Akash ProviderMD - 10/09/2019 9:37 PM GIN OPERATOR Pain Assessment Entered On: 10/09/2019 23:44 EST Performed On: 10/09/2019 23:54 EST by MEKA MANSFIELD RN Intervention Information: traMADol Performed by MEKA MANSFIELD RN on 10/09/2019 22:54:00 EST traMADol,50mg Oral Pain Assessment Pain Assessment : Follow-up assessment Pain Improved by Intervention : Yes MEKA MANSFIELD RN - 10/09/2019 23:43 EST documented in this encounter Plan of Treatment Upcoming Encounters Date Type Department Care Team (Late st Contact Info) Description 09/07/2025 10:45 AM EDT Office Visit [facility] Electrophysiology [address] [facility] [address] [place] [phone] Adrienne Dunn MD [address] [facility] [address] [place], [place] [id number] documented as of this encounter Visit Diagnoses Not on filedocumented in this encounter Care Teams Material Spreader Relationship Specialty Start Date End Date Niranjan Mccarty MD [address] [place] [address] PCP - General Adolescent Medicine 10/15/23 documented as of this encounter
--- OUTSIDE RECORDS SUMMARY | 2025-04-27 09:51 | XMS_ITS | Encounter Summary ---
Author Organization [employer] Address [address] [place] [address] Care Team Providers Care Architectural Design Professor Name Role Phone Niranjan Mccarty MD Primary Care Provider [phone] Encounter Details Date Type Department Care Team (Late st Contact Info) Description 06/12/2021 Transcribed Document [facility] [place] [address] [place] [address] ProviderAkash MD [address] [place] [address] Social History Tobacco Use Types Packs/Day Years Used Date Smoking Tobacco: Never Assessed Comments Unknown Sex and Gender Information Value Date Recorded Sex Assigned at Not on file Legal Sex Female 1:32 PM CDT Gender Identity Not on file Sexual Orientation Not on file documented as of this encounter Miscellaneous Notes * Cerner Conversion Note - Akash Vega MD - 06/12/2021 9:14 PM CDT Patient: TRAN PEGUERO Age: 85 Years Sex: Female : 1935 Pediatrics Teacher: Julián Amaya MD Indication: 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 She is here for a pacemaker generator change after holding her warfarin in a very thin patient with a superfical device (third incision) Procedure report: After written informed consent was obtained, the patient was brought to the Electrophysiology Laboratory in a fasting state. Antibiotics were infused before skin prep - 2g Cefazolin. Moderate sedation was given and monitored by physician with IV versed and IV fentanyl given. Monitoring time was approximately 45 minutes and patient was hemodynamically stable throughout the procedure. The skin was prepared with sterile scrub. Following infiltration with 2% lidocaine, an incision was made parallel to and 2 centimeters beneath the clavicle near the prior incision. Electrocautery carried down through the fascia to the device pocket, and electrocautery used for hemostasis. The device was exposed. Leads were disconnected from existing device, and the dual chamber generator was removed from the field. A new pulse generator was brought onto the field and interfaced with the existing leads. the pocket was revised and extended inferiorly to account for the newer device a little bigger The pocket was flushed with antibiotic solution. All lead impedance, sensing and pacing were tested and found to be in good working order. The pocket was closed in 2 layers, using running 2-0 Vicryl. Dermabond was applied as well as Aquacel surgical dressing. Patient tolerated the procedure well and there were no complications at the end of the procedure. Lead and Device Information: The new device pulse generator was a Medtronic model [id number] that replaced the old generator. Complications: No immediate complications were observed. Blood loss around 10 mL. Conclusion: Successful Procedure(s) of: 1. DUAL CHAMBER SYSTEM REPLACEMENT 2. Pocket revision 3. Sedation for 45 min managed by physician Plan: Discharge tomorrow and device clinic in 10 days documented in this encounter Plan of Treatment Upcoming Encounters Date Type Department Care Team (Late st Contact Info) Description 09/07/2025 10:45 AM EDT Office Visit [facility] Electrophysiology [address] [facility] [address] [place] [address] Adrienne Dunn MD [address] [facility] [address] [place] [address] documented as of this encounter Visit Diagnoses Not on filedocumented in this encounter Care Teams Architectural Design Professor Relationship Specialty Start Date End Date Niranjan Mccarty MD [address] [place] [address] PCP - General Adolescent Medicine 10/15/23 documented as of this encounter
--- OUTSIDE RECORDS SUMMARY | 2025-04-27 09:51 | XMS_ITS | Encounter Summary ---
Author Organization [employer] Address [address] [place] [address] Care Team Providers Care Patient Registration Clerk Name Role Phone Niranjan Mccarty MD Primary Care Provider [phone] Encounter Details Date Type Department Care Team (Late Contact Info) Description 06/13/2021 Transcribed Document [facility] [place] [address] ProviderAkash MD [address] [place] [address] Social History Tobacco Use Types Packs/Day Years Used Date Smoking Tobacco: Never Assessed Comments Unknown Sex and Gender Information Value Date Recorded Sex Assigned at Not on file Legal Sex Female 1:32 PM CDT Gender Identity Not on file Sexual Orientation Not on file documented as of this encounter Miscellaneous Notes * Cerner Conversion Note - Akash Vega MD - 06/13/2021 12:53 AM CDT Patient: TRAN PEGUERO Age: 85 Years Sex: Female : 1935 @ around 2300hr patient's medication administered with apple sauce per patient's request , patient verbalized she still swallows her pill whole but just needed apple sauce or crackers with it so she can better swallow them. documented in this encounter Plan of Treatment Upcoming Encounters Date Type Department Care Team (Late st Contact Info) Description 09/07/2025 10:45 AM EDT Office Visit [facility] Electrophysiology [address] [facility] [address] [place] [phone] Adrienne Dunn MD [address] [facility] [address] [place] [address] documented as of this encounter Visit Diagnoses Not on filedocumented in this encounter Care Teams Patient Registration Clerk Relationship Specialty Start Date End Date Niranjan Mccarty MD [address] [place] [address] PCP - General Adolescent Medicine 10/15/23 documented as of this encounter
--- OUTSIDE RECORDS SUMMARY | 2025-04-27 09:51 | XMS_ITS | Encounter Summary ---
Author Organization [employer] Address [address] [place] [id number] Care Team Providers Care Acidizer Name Role Phone Niranjan Mccarty MD Primary Care Provider [phone] Encounter Details Date Type Department Care Team (Late st Contact Info) Description 06/13/2021 Transcribed Document [facility] [place] [address] ProviderAkash MD [address] [place] [address] Social History Tobacco Use Types Packs/Day Years Used Date Smoking Tobacco: Never Assessed Comments Unknown Sex and Gender Information Value Date Recorded Sex Assigned at Not on file Legal Sex Female 1:32 PM CDT Gender Identity Not on file Sexual Orientation Not on file documented as of this encounter Miscellaneous Notes * Cerner Conversion Note - Akash Vega MD - 06/13/2021 1:14 PM CDT Final Discharge Planning Entered On: 06/13/2021 13:15 EDT Performed On: 06/13/2021 13:14 EDT by SHERRILL JUÁREZ RN-Supervisor Sample Final Discharge Planning Discharge Arrangements : Patient Post-Acute Information Patient Name: TRAN PEGUERO Gender: Female : 35 Age: 85 Years No Post-Acute Placement(s) Listed No Post-Acute Service(s) Listed No [place] Referral(s) Listed Patient Offered Choice/Affiliations Explained : No Designation of Choice Signed : No Transportation Needs : Family/Friend Follow Up Appointment Scheduled : Yes Is Patient High/Moderate Readmission Risk? : No Patient/Family Notified of Plan : Yes Support Person/Pt Rep Notified of Plan : Yes Is Patient Ready for Discharge? : Yes Physician Notified Patient is Ready for Discharge? : Yes Discharge To Care Management : Home/Residential/[facility]ci or Self Care -01 SHERRILL JUÁREZ, RN-Supervisor Sample - 06/13/2021 13:14 EDT Electronically signed by Cecy [facility] Conversion Rehab Nurse Cerner at 03/09/2023 12:45 PM CDT documented in this encounter Plan of Treatment Upcoming Encounters Date Type Department Care Team (Late st Contact Info) Description 09/07/2025 10:45 AM EDT Office Visit [facility] Electrophysiology [address] [place] [address] [address] [place] [address] Adrienne Dunn MD [address] [place] [address] [address] [place] [address] documented as of this encounter Visit Diagnoses Not on filedocumented in this encounter Care Teams Acidizer Relationship Specialty Start Date End Date Niranjan Mccarty MD [address] [place] [address] [place] [address] PCP - General Adolescent Medicine 10/15/23 documented as of this encounter
--- OUTSIDE RECORDS SUMMARY | 2025-04-27 09:51 | XMS_ITS | Encounter Summary ---
Author Organization [employer] Address [address] [place] [address] Care Team Providers Care Cook House Laborer Name Role Phone Niranjan Mccarty MD Primary Care Provider [phone] Encounter Details Date Type Department Care Team (Late st Contact Info) Description 08/24/2021 Transcribed Document [facility] [place] Family Medicine [address] [place] [address] ProviderAkash MD [address] [place] [address] Social History Tobacco Use Types Packs/Day Years Used Date Smoking Tobacco: Never Assessed Comments Unknown Sex and Gender Information Value Date Recorded Sex Assigned at Not on file Legal Sex Female 1:32 PM CDT Gender Identity Not on file Sexual Orientation Not on file documented as of this encounter Miscellaneous Notes * Cerner Conversion Note - Akash ProviderMD - 08/24/2021 10:18 AM CDT CR Chest 1 Vw Portable Ordered: 08/23/2021 Modified Reason for Exam: SOA 08/23/2021 18:36 08/24/2021 10:18 (KATE ROGEL) No further action required documented in this encounter Plan of Treatment Upcoming Encounters Date Type Department Care Team (Late st Contact Info) Description 09/07/2025 10:45 AM EDT Office Visit [address] [address] Adrienne Dunn MD [address] [place] [address] [address] [place] [address] documented as of this encounter Visit Diagnoses Not on filedocumented in this encounter Care Teams Cook House Laborer Relationship Specialty Start Date End Date Niranjan Mccarty MD [address] [place] [address] PCP - General Adolescent Medicine 10/15/23 documented as of this encounter
--- OUTSIDE RECORDS SUMMARY | 2025-04-27 09:51 | XMS_ITS | Encounter Summary ---
Author Organization [employer] Address [address] [place] [address] Care Team Providers Care Emergency Dispatcher Name Role Phone Niranjan Mccarty MD Primary Care Provider [phone] Encounter Details Date Type Department Care Team (Late st Contact Info) Description 06/13/2021 Transcribed Document [facility] Family Medicine [address] [place] [address] ProviderAkash MD [address] [place] [address] Social History Tobacco Use Types Packs/Day Years Used Date Smoking Tobacco: Never Assessed Comments Unknown Sex and Gender Information Value Date Recorded Sex Assigned at Not on file Legal Sex Female 1:32 PM CDT Gender Identity Not on file Sexual Orientation Not on file documented as of this encounter Miscellaneous Notes * Cerner Conversion Note - Akash Vega MD - 06/13/2021 3:30 PM CDT [facility] [place] [address] TAL ROME :1935 Visit Time:06/12/2021 Your Visit Summary Your Care Team Admitting Physician - SHANITA CONTE MD-CAR Attending Physician - SHANITA CONTE MD-CAR Primary Care Physician - NIRANJAN MORRIS MD-JENNIFFER Referring Physician - SHANITA CONTE MD-CAR These Are Your Goals No qualifying data available. Discharge Vitals Temperature 36.3 ??C Heart Rate (Monitored) 60 Blood Pressure 126/62 What to do next Instructions From Your Care Team PRESCRIPTION CALLED INTO YOUR PHARMACY FOR DOXYCYCLINE 100 MG PO TWICE A DAY FOR 7 DAYS DO NOT RESUME YOUR WARFARIN UNTIL YOU ARE SEEN IN OUR CLINIC IN ONE WEEK Discharge Activity: Discharge Activity: No heavy lifting over 10 lbs Diet: Discharge Diet: Resume usual diet as tolerated Wound/Incision Care Instructions: Keep operative site/wound clean and dry. Do not emove Aquacel dressing until seen in clinic in1 week. Driving Restriction: Do Not Drive Follow-Up Appointments Follow Up with EWA DUNN When 06/20/2021 01:00 PM EDT Comments Wound/device check in [address] Dunn Appointment has been made Where: [facility] [address] [place] [id number]- Business (1) Medications What How Much When Instructions Next Dose carBAMazepine (TEGretol) 200 Milligram(s) Oral At Bedtime digoxin 125 Microgram(s) Oral Every Day pantoprazole 40 Milligram(s) Oral Every Day sotalol 160 Milligram(s) Oral Two Times A Day warfarin See instructions 3.75 Oral every FRIDAY DO NOT RESUME UNTIL AFTER YOUR FOLLOW UP APPOINTMENT AND WOUND CHECK warfarin (warfarin 7.5 mg oral tablet) Oral Every Day except sundays DO NOT RESUME UNTIL AFTER YOUR FOLLOW UP APPOINTMENT AND WOUND CHECK ALPRAZolam (Xanax 0.5 mg oral tablet) 1 Tablet(s) Oral Two Times A Day potassium chloride (potassium chloride 20 mEq/ 15 mL oral liquid) 15 Milliliter(s) Oral Every Day as needed for Other (See Comment) With torsemide torsemide (torsemide 20 mg oral tablet) 1 Tablet(s) Oral Every Day as needed for Edema traMADol 50 Milligram(s) Oral Every 12 hours as needed for as needed for pain umeclidinium-vilanterol (Anoro Ellipta 62.5 mcg-25 mcg/ inh [...] your retail pharmacy guidance. Allergies Advicor Radha Baycol Biaxin Claritin Percodan Vioxx Vitamin K aspirin-oxyCODONE azithromycin cefuroxime cephalexin ciprofloxacin clarithromycin codeine cortisone erythromycin fexofenadine iodinated radiocontrast dyes (hives, lockjaw) loratadine penicillins phytonadione rofecoxib sulfADIAZINE tetracaine Immunizations This Visit No Immunizations Found Education Materials Biventricular Pacemaker Implantation, Care After This sheet gives you information about how to care for yourself after your procedure. Your health care provider may also give you more specific instructions. If you have problems or questions, contact your health care provider. What can I expect after the procedure? After the procedure, it is common to have: ??? Mild pain or soreness in your chest for several days. ??? A small amount of blood or clear fluid coming from your incision. ??? A slight bump in your chest where the pulse generator was placed. You may be able to feel the generator under your skin. This is normal. Follow these instructions at home: Medicines ??? Take wqrt-iey-wtpydxi and prescription medicines only as told by your health care provider. ??? Do not take any new medicines without asking your health care provider first. ??? If you were prescribed an antibiotic medicine, take it as told by your health care provider. Do not stop taking the antibiotic even if you start to feel better. ??? Ask your health care provider if the medicine prescribed to you requires you to avoid driving or using heavy machinery. Incision care ??? Keep your incision area clean and dry. ??? Avoid rubbing the incision and the area around the incision. ??? Follow instructions from your health care provider about how to take care of your incision. Make sure you: ? Wash your hands with soap and water before and after you change your bandage (dressing). If soap and water are not available, use hand director of managed care. ? Change your dressing as told by your health care provider. ? Leave stitches (sutures), skin glue, or adhesive strips in place. These skin closures may need to stay in place for 2 weeks or longer. If adhesive strip edges start to loosen and curl up, you may trim the loose edges. Do not remove adhesive strips completely unless your health care provider tells you to do that. ??? Check your incision area every day for signs of infection. Check for: ? More redness, swelling, or pain. ? More fluid or blood. ? Warmth. ? Pus or a bad smell. Activity ??? Return to your normal activities as told by your health care provider. Ask your health care provider what activities are safe for you. ??? Do not lift anything that is heavier than 10 lb (4.5 kg), or the limit that you are told, until your health care provider says that it is safe. ??? Do not lift your upper arms above your shoulders for at least 6 weeks or as long as told by your health care provider. ? If you tend to sleep with your arms above your head, wear an arm restraint while you sleep to prevent this from happening. ? Avoid sudden movements that pull your upper arms far away from your body for at least 6 weeks. ??? Do a mild form of exercise at least once a day, such as walking. As you feel better, you may exercise more. ??? Gently stretch your shoulders at least once a day to help prevent stiffness in your chest. ??? Rest as told by your health care provider. ??? Avoid sitting for a long time without moving. Get up to take short walks every 1???2 hours. This is important to improve blood flow and breathing. Ask for help if you feel weak or unsteady. Electricity and magnetic aragon ??? Avoid places and objects that have a strong electric or magnetic field. This includes: ? Airport security checkpoints. When you are at the airport, tell officials that you have a pacemaker and show them your pacemaker identification card. Officials will check you in safely so that your device is not damaged. Do not allow magnetic wands to be waved near your pacemaker. That can make the pacemaker stop working. ? Metal detectors. If you must pass through a metal detector, walk through it quickly. Do not stop under the detector or stand near it. ? Power plants. ? Large electrical generators. ? Radiofrequency transmission towers, such as mobile phone and radio towers. ??? Do not use amateur radio equipment or electric welding torches. If you are not sure whether something is safe to use, ask your health care provider. ? Some devices may be safe to use if you hold them at least 1 ft (0.3 m) from your pacemaker. These devices may include power tools, lawn mowers, and speakers. ??? When you talk on your mobile phone, hold it to your ear that is opposite from the side that your pacemaker is on. Do not leave your mobile phone in a pocket over your pacemaker. Long-term care ??? Carry your pacemaker identification card with you at all times, especially when you travel. ??? Consider wearing a medical alert bracelet or necklace that explains your pacemaker and any heart conditions you have. ??? Tell all health care providers who care for you that you have a pacemaker. This may prevent you from having an MRI because of the strong magnets used during that test. ??? Have your pacemaker checked every 3???6 months or as often as told by your health care provider. General instructions ??? Do not use any products that contain nicotine or tobacco, such as cigarettes, e-cigarettes, and chewing tobacco. These can delay incision healing after surgery. If you need help quitting, ask your health care provider. ??? Do not take baths, swim, or use a hot tub until your health care provider approves. ??? Do not wear tight clothing that could irritate the skin over your implant. ??? Follow instructions from your health care provider about eating or drinking restrictions. ??? Weigh yourself every day and write down your weight. ??? Keep all follow-up visits as told by your health care provider. This is important. Contact a health care provider if: ??? You gain 3 lb (1.4 kg) or more in 24 hours. ??? You have swelling in your feet, ankles, or legs. ??? You have an irregular heartbeat (palpitations). ??? You have more redness, swelling, or pain around your incision. ??? You have more fluid or blood coming from your incision. ??? Your incision area feels warm to the touch. ??? You have pus or a bad smell coming from your incision. Get help right away if you: ??? Have chest pain. ??? Have a heart rate that drops below the lowest rate set for your pacemaker. ??? Have difficulty breathing. ??? Suddenly feel light-headed. ??? Have a fever. ??? Faint. These symptoms may represent a serious problem that is an emergency. Do not wait to see if the symptoms will go away. Get medical help right away. Call your local emergency services (911 in the [place] Do not drive yourself to the hospital. Summary ??? After the procedure, it is common to have mild pain or soreness in your chest for several days. ??? Take ulpm-pam-hwvsmxa and prescription medicines only as told by your health care provider. ??? Ask your health care provider what activities are safe for you. ??? Carry your pacemaker identification card with you at all times, especially when you travel. This information is not intended to replace advice given to you by your health care provider. Make sure you discuss any questions you have with your health care provider. Document Revised: 10/04/2019 Document Reviewed: 10/04/2019 Elsevier Patient Education ?? 2020 [employer] Heart-Healthy Eating Plan Heart-healthy meal planning includes: ??? Eating less unhealthy fats. ??? Eating more healthy fats. ??? Making other changes in your diet. Talk with your doctor or a diet specialist (dietitian) to create an eating plan that is right for you. What is my plan? Your doctor may recommend an eating plan that includes: ??? Total fat: % or less of total calories a day. ??? Saturated fat: % or less of total calories a day. ??? Cholesterol: less than mg a day. What are tips for following this plan? Cooking Avoid frying your food. Try to bake, boil, grill, or broil it instead. You can also reduce fat by: ??? Removing the skin from poultry. ??? Removing all visible fats from meats. ??? Steaming vegetables in water or broth. Meal planning ??? At meals, divide your plate into four equal parts: ? Fill one-half of your plate with vegetables and green salads. ? Fill one-fourth of your plate with whole grains. ? Fill one-fourth of your plate with lean protein foods. ??? Eat 4???5 servings of vegetables per day. A serving of vegetables is: ? 1 cup of raw or cooked vegetables. ? 2 cups of raw leafy greens. ??? Eat 4???5 servings of fruit per day. A serving of fruit is: ? 1 medium whole fruit. ? ?? cup of dried fruit. ? ?? cup of fresh, frozen, or canned fruit. ? ?? cup of 100% fruit juice. ??? Eat more foods that have soluble fiber. These are apples, broccoli, carrots, beans, peas, and barley. Try to get 20???30 g of fiber per day. ??? Eat 4???5 servings of nuts, legumes, and seeds per week: ? 1 serving of dried beans or legumes equals ?? cup after being cooked. ? 1 serving of nuts is ?? cup. ? 1 serving of seeds equals 1 tablespoon. General information ??? Eat more home-cooked food. Eat less restaurant, buffet, and fast food. ??? Limit or avoid alcohol. ??? Limit foods that are high in starch and sugar. ??? Avoid fried foods. ??? Lose weight if you are overweight. ??? Keep track of how much salt (sodium) you eat. This is important if you have high blood pressure. Ask your doctor to tell you more about this. ??? Try to add vegetarian meals each week. Fats ??? Choose healthy fats. These include olive oil and canola oil, flaxseeds, walnuts, almonds, and seeds. ??? Eat more omega-3 fats. These include salmon, mackerel, sardines, tuna, flaxseed oil, and ground flaxseeds. Try to eat fish at least 2 times each week. ??? Check food labels. Avoid foods with trans fats or high amounts of saturated fat. ??? Limit saturated fats. ? These are often found in animal products, such as meats, butter, and cream. ? These are also found in plant foods, such as palm oil, palm kernel oil, and coconut oil. ??? Avoid foods with partially hydrogenated oils in them. These have trans fats. Examples are stick margarine, some tub margarines, cookies, crackers, and other baked goods. What foods can I eat? Fruits All fresh, canned (in natural juice), or frozen fruits. Vegetables Fresh or frozen vegetables (raw, steamed, roasted, or grilled). Green salads. Grains Most grains. Choose whole wheat and whole grains most of the time. Rice and pasta, including brown rice and pastas made with whole wheat. Meats and other proteins Lean, well-trimmed beef, veal, pork, and jordan. Chicken and turkey without skin. All fish and shellfish. Wild duck, rabbit, pheasant, and venison. Egg whites or low-cholesterol egg substitutes. Dried beans, peas, lentils, and tofu. Seeds and most nuts. Dairy Low-fat or nonfat cheeses, including ricotta and mozzarella. Skim or 1% milk that is liquid, powdered, or evaporated. Buttermilk that is made with low-fat milk. Nonfat or low-fat yogurt. Fats and oils Non-hydrogenated (trans-free) margarines. Vegetable oils, including soybean, sesame, sunflower, olive, peanut, safflower, corn, canola, and cottonseed. Salad dressings or mayonnaise made with a vegetable oil. Beverages Mineral water. Coffee and tea. Diet carbonated beverages. Sweets and desserts Sherbet, gelatin, and fruit ice. Small amounts of dark chocolate. Limit all sweets and desserts. Seasonings and condiments All seasonings and condiments. The items listed above may not be a complete list of foods and drinks you can eat. Contact a dietitian for more options. What foods should I avoid? Fruits Canned fruit in heavy syrup. Fruit in cream or butter sauce. Fried fruit. Limit coconut. Vegetables Vegetables cooked in cheese, cream, or butter sauce. Fried vegetables. Grains Breads that are made with saturated or trans fats, oils, or whole milk. Croissants. Sweet rolls. Donuts. High-fat crackers, such as cheese crackers. Meats and other proteins Fatty meats, such as hot dogs, ribs, sausage, bartlett, rib-eye roast or steak. High-fat deli meats, such as salami and bologna. Caviar. Domestic duck and goose. Organ meats, such as liver. Dairy Cream, sour cream, cream cheese, and creamed cottage cheese. Whole-milk cheeses. Whole or 2% milk that is liquid, evaporated, or condensed. Whole buttermilk. Cream sauce or high-fat cheese sauce. Yogurt that is made from whole milk. Fats and oils Meat fat, or shortening. [place] butter, hydrogenated oils, palm oil, coconut oil, palm kernel oil. Solid fats and shortenings, including bartlett fat, salt pork, lard, and butter. Nondairy cream substitutes. Salad dressings with cheese or sour cream. Beverages Regular sodas and juice drinks with added sugar. Sweets and desserts Frosting. Pudding. Cookies. Cakes. Pies. Milk chocolate or white chocolate. Buttered syrups. Full-fat ice cream or ice cream drinks. The items listed above may not be a complete list of foods and drinks to avoid. Contact a dietitian for more information. Summary ??? Heart-healthy meal planning includes eating less unhealthy fats, eating more healthy fats, and making other changes in your diet. ??? Eat a balanced diet. This includes fruits and vegetables, low-fat or nonfat dairy, lean protein, nuts and legumes, whole grains, and heart-healthy oils and fats. This information is not intended to replace advice given to you by your health care provider. Make sure you discuss any questions you have with your health care provider. Document Revised: 01/07/2019 Document Reviewed: 12/11/2018 [employer] Patient Education ?? 2020 [employer]. Emergency Awareness and Preventative Care STROKE is [...] Assistance with quitting is available by contacting 3-617-ELSF-NOW. This is a free resource providing counseling, [...] This Visit (last charted value for your 06/12/2021 visit) Hematology 06/12/2021 12:31 PM WBC: 6.0 K/uL -- Normal range between ( 4.5 and 10.5 ) RBC: 3.62 Million/uL -- Normal range between ( 3.93 and 5.22 ) Hct: 34.9 % -- Normal range between ( 34.1 and 44.9 ) Hgb: 10.9 g/dL -- Normal range between ( 11.2 and 15.7 ) Platelet Count: 253 K/uL -- Normal range between ( 163 and 369 ) MCH: 30.1 pg -- Normal range between ( 25.6 and 32.2 ) MCHC: 31.2 Gram/dL -- Normal range between ( 32.2 and 36.5 ) MCV: 96.4 fL -- Normal range between ( 79.0 and 94.8 ) Slide Review: No Eos %: 2.7 % -- Normal range between ( 0.0 and 7.0 ) Dauphin #: 0.48 K/uL -- Normal range between ( 0.16 and 1.00 ) Eos #: 0.16 x10(3)/uL -- Normal range between ( 0.00 and 0.80 ) [place]hin %: 8.0 % -- Normal range between ( 3.0 and 9.0 ) Baso %: 0.8 % -- Normal range between ( 0.0 and 1.5 ) Baso #: 0.05 x10(3)/uL -- Normal range between ( 0.00 and 0.20 ) RDW: 12.2 % -- Normal range between ( 11.7 and 14.9 ) Neut %: 59.5 % -- Normal range between ( 34.0 and 71.0 ) Neut #: 3.57 K/uL -- Normal range between ( 1.56 and 6.13 ) Lymph %: 28.7 % -- Normal range between ( 19.3 and 53.1 ) Lymph #: 1.72 x10(3)/uL -- Normal range between ( 1.00 and 3.90 ) MPV: 9.3 fL -- Normal range between ( 9.4 and 12.4 ) IG#: 0.02 x10(3)/uL -- Normal range between ( 0.00 and 0.05 ) IG%: 0.30 % -- Normal range between ( 0.00 and 0.60 ) General Chemistry 06/12/2021 12:31 PM Creatinine Level: 0.80 mg/dL -- Normal range between ( 0.55 and 1.02 ) Sodium Level: 136 mmol/L -- Normal range between ( 136 and 146 ) Potassium Level: 3.8 mmol/L -- Normal range between ( 3.5 and 5.1 ) Chloride Level: 100 mmol/L -- Normal range between ( 102 and 112 ) Carbon Dioxide Level: 31 mmol/L -- Normal range between ( 21 and 32 ) Anion Gap: 9 -- Normal range between ( 9 and 20 ) Bun/Creatinine: 16.2 -- Normal range between ( 8.0 and 20.0 ) Calcium Level: 9.2 mg/dL -- Normal range between ( 8.4 and 10.1 ) eGFR : >60 mL/min/1.73m2 eGFR NonAfrican: >60 mL/min/1.73m2 Glucose Level: 102 mg/dL -- Normal range between ( 74 and 106 ) Blood Urea Nitrogen: 13 mg/dL -- Normal range between ( 7 and 22 ) Coagulation 06/12/2021 12:31 PM INR: 1.3 -- Normal range between ( 0.9 and 1.2 ) PT: 14.0 Second(s) -- Normal range between ( 9.2 and 12.0 ) Patient Name:TAL ROME KELLY I have received and understand this information and was given the opportunity to ask questions. Patient/Route Sales Delivery Drivers Supervisor Name: Patient/Route Sales Delivery Drivers Supervisor Signature: Relationship to Patient: Clinician/Hospital Route Sales Delivery Drivers Supervisor Signature: Date: Electronically signed by Cecy, [facility] Student Cerner at 03/07/2023 1:48 PM CDT documented in this encounter Plan of Treatment Upcoming Encounters Date Type Department Care Team (Late st Contact Info) Description 09/07/2025 10:45 AM EDT Office Visit [facility] Electrophysiology [address] [facility] [address] [place] [address] [place] [address] [place] [address] [address] [place], [place] [id number] documented as of this encounter Visit Diagnoses Not on filedocumented in this encounter Care Teams Emergency Dispatcher Relationship Specialty Start Date End Date Niranjan Mccarty MD [address] [place] [address] PCP - General Adolescent Medicine 10/15/23 documented as of this encounter
--- OUTSIDE RECORDS SUMMARY | 2025-04-27 09:51 | XMS_ITS | Encounter Summary ---
Author Organization [employer] Address [address] [place] [address] Care Team Providers Care Product Manufacturing Professional Name Role Phone Niranjan Mccarty MD Primary Care Provider [phone] Encounter Details Date Type Department Care Team (Late st Contact Info) Description 08/22/2023 Telephone [facility] Cardiology [address] [facility], [address] [address] Patrick Travis DO [address] [address] Social History Tobacco Use Types Packs/Day Years Used Date Smoking Tobacco: Never Smokeless Tobacco: Never Alcohol Use Standard Drinks/Week Comments Not Currently 0 (1 standard drink = 0.6 oz pur e alcohol) Comments No Sex and Gender Information Value Date Recorded Sex Assigned at Not on file Legal Sex Female 1:32 PM CDT Gender Identity Not on file Sexual Orientation Not on file documented as of this encounter Plan of Treatment Upcoming Encounters Date Type Department Care Team (Late st Contact Info) Description 09/07/2025 10:45 AM EDT Office Visit [facility] Electrophysiology [address] [place] [address] [address] [place] [address] Adrienne Dunn MD [address] [place] [address] [address] [place], [place] [id number] documented as of this encounter Visit Diagnoses Not on filedocumented in this encounter Care Teams Product Manufacturing Professional Relationship Specialty Start Date End Date Niranjan Mccarty MD [address] [place] [address] PCP - General Adolescent Medicine 10/15/23 documented as of this encounter
--- OUTSIDE RECORDS SUMMARY | 2025-04-27 09:51 | XMS_ITS | Encounter Summary ---
Author Organization [employer] Address [address] [facility] [facility] [place] [address] Care Team Providers Care Executive Legal Secretary Name Role Phone Niranjan Mccarty MD Primary Care Provider [phone] Encounter Details Date Type Department Care Team (Late st Contact Info) Description 08/23/2021 Transcribed Document [facility] Family Medicine [facility] [place] [address] ProviderAkash MD [address] [place] [address] Social History Tobacco Use Types Packs/Day Years Used Date Smoking Tobacco: Never Assessed Comments Unknown Sex and Gender Information Value Date Recorded Sex Assigned at Not on file Legal Sex Female 1:32 PM CDT Gender Identity Not on file Sexual Orientation Not on file documented as of this encounter Miscellaneous Notes * Cerner Conversion Note - Akash ProviderMD - 08/23/2021 1:33 PM CDT ED Triage Entered On: 08/23/2021 13:42 EDT Performed On: 08/23/2021 13:34 EDT by GEORGINA EVERETT RN ED Triage Across the Room Chief Complaint : pt via EMS from home, c/o new onset chest tightness and increasing weakness, pt had a pacemaker placed 5wks ago, states the area is sore, something doesnt feel right , + blood thinners, hx COPD. Triage Date/Time : 08/23/2021 13:34 EDT GEORGINA EVERETT RN - 08/23/2021 13:34 EDT DCP GENERIC CODE Tracking Acuity : 2 - Emergent Tracking Group : [facility] ED GEORGINA EVERETT RN - 08/23/2021 13:34 EDT Mode of Arrival : Stretcher Transported to ED by : Ambulance/ALS EMS Service : [facility] To Room Via : Stretcher Accompanied By : Unaccompanied ED Vital Signs : Document Height & Weight : Document ED Allergies : Document ED Reason for Visit : Document Tetanus Immunization : Unknown GEORGINA EVERETT RN - 08/23/2021 13:34 EDT Infectious Disease History Does patient have symptoms of COVID-19? : No Has the Patient Been Tested for COVID-19 in the last 14 days? : Yes, Patient stated results Negative Does the Patient state known exposure to a COVID-19 positive case in the last 14 days? : No Patient Vaccinated for COVID-19 : Not vaccinated Does Patient want a COVID-19 Vaccine? : No GEORGINA EVERETT RN - 08/23/2021 13:34 EDT Infectious Disease Risk Screening Grid Cough < 2 wks of unknown origin : NO Cough > 2 weeks : NO Blood in Sputum : NO Fever or self-reported Fever : NO Rash of unknown origin : NO Headache : NO Stiff neck : NO Night Sweats : NO Unexplained Weight Loss : NO Diarrhea (3 episode per day) : NO GEORGINA EVERETT RN - 08/23/2021 13:34 EDT Physical contact outside [place] in the last 30 days : No Hospitalized in Foreign Country : No Infectious Disease History : Chicken pox/Shingles, Influenza, Measles, Scarlet fever INF Disease TB Screening Calc : 0 INF Disease Recent Travel Calc : 0 GEORGINA EVERETT RN - 08/23/2021 13:34 EDT Vital Signs ED Temperature Source : Oral Temperature Mode : Fahrenheit Temperature, Fahrenheit : 98.0 Deg F ED Pain : No Clinical Temperature, C : 36.7 Deg C Oxygen Therapy Mode : Nasal cannula Peripheral Pulse Rate : 75 bpm Respiratory Rate : 18 Breaths/Min Systolic Blood Pressure : 173 mmHg (HI) Diastolic Blood Pressure : 78 mmHg Oxygen Saturation : 96 % Oxygen Flow Rate : 2 Liter/Min GEORGINA EVERETT RN - 08/23/2021 13:34 EDT Allergy (As Of: 08/23/2021 13:42:42 EDT) Allergies (Active) Advicor Estimated Onset Date: Unspecified ; Created By: JOSE TYSON RN; Reaction Status: Active ; Category: Drug ; Substance: Advicor ; Type: Allergy ; Updated By: JOSE TYSON RN; Reviewed Date: 08/23/2021 13:37 EDT Radha Estimated Onset Date: Unspecified ; Created By: JOSE TYSON RN; Reaction Status: Active ; Category: Drug ; Substance: Radha ; Type: Allergy ; Updated By: JOSE TYSON RN; Reviewed Date: 08/23/2021 13:37 EDT aspirin-oxyCODONE Estimated Onset Date: Unspecified ; Created By: CONTRIBUTOR_SYSTEM HIST_CERHENRY; Reaction Status: Active ; Category: Drug ; Substance: aspirin-oxyCODONE ; Type: Allergy ; Updated By: JAILENESYSTEMANA_MARIE; Reviewed Date: 08/23/2021 13:37 EDT azithromycin Estimated Onset Date: Unspecified ; Created By: JOSE TYSON RN; Reaction Status: Active ; Category: Drug ; Substance: azithromycin ; Type: Allergy ; Updated By: JOSE TYSON RN; Reviewed Date: 08/23/2021 13:37 EDT Baycol Estimated Onset Date: Unspecified ; Created By: Nory Farfan RN; Reaction Status: Active ; Category: Drug ; Substance: Baycol ; Type: Allergy ; Updated By: Nory Farfan RN; Reviewed Date: 08/23/2021 13:37 EDT Biaxin Estimated Onset Date: Unspecified ; Created By: JOSE TYSON RN; Reaction Status: Active ; Category: Drug ; Substance: Biaxin ; Type: Allergy ; Updated By: JOSE TYSON RN; Reviewed Date: 08/23/2021 13:37 EDT cefuroxime Estimated Onset Date: Unspecified ; Created By: JOSE TYSON RN; Reaction Status: Active ; Category: Drug ; Substance: cefuroxime ; Type: Allergy ; Updated By: JOSE TYSON RN; Reviewed Date: 08/23/2021 13:37 EDT cephalexin Estimated Onset Date: Unspecified ; Created By: CONTRIBUTOR_SYSTEM HIST_CERHENRY; Reaction Status: Active ; Category: Drug ; Substance: cephalexin ; Type: Allergy ; Updated By: SERGIO RILEY; Reviewed Date: 08/23/2021 13:37 EDT ciprofloxacin Estimated Onset Date: Unspecified ; Created By: SERGIO RILEY; Reaction Status: Active ; Category: Drug ; Substance: ciprofloxacin ; Type: Allergy ; Updated By: SERGIO RILEY; Reviewed Date: 08/23/2021 13:37 EDT clarithromycin Estimated Onset Date: Unspecified ; Created By: SERGIO RILEY; Reaction Status: Active ; Category: Drug ; Substance: clarithromycin ; Type: Allergy ; Updated By: SERGIO RILEY; Reviewed Date: 08/23/2021 13:37 EDT Claritin Estimated Onset Date: Unspecified ; Created By: JOSE TYSON RN; Reaction Status: Active ; Category: Drug ; Substance: Claritin ; Type: Allergy ; Updated By: JOSE TYSON RN; Reviewed Date: 08/23/2021 13:37 EDT codeine Estimated Onset Date: Unspecified ; Created By: SERGIO RILEY; Reaction Status: Active ; Category: Drug ; Substance: codeine ; Type: Allergy ; Updated By: SERGIO RILEY; Reviewed Date: 08/23/2021 13:37 EDT cortisone Estimated Onset Date: Unspecified ; Created By: SERGIO RILEY; Reaction Status: Active ; Category: Drug ; Substance: cortisone ; Type: Allergy ; Updated By: SERGIO RILEY; Reviewed Date: 08/23/2021 13:37 EDT erythromycin Estimated Onset Date: Unspecified ; Created By: SERGIO RILEY; Reaction Status: Active ; Category: Drug ; Substance: erythromycin ; Type: Allergy ; Updated By: SERGIO RILEY; Reviewed Date: 08/23/2021 13:37 EDT fexofenadine Estimated Onset Date: Unspecified ; Created By: SERGIO RILEY; Reaction Status: Active ; Category: Drug ; Substance: fexofenadine ; Type: Allergy ; Updated By: SERGIO RILEY; Reviewed Date: 08/23/2021 13:37 EDT iodinated radiocontrast dyes Estimated Onset Date: Unspecified ; Reactions: hives, lockjaw ; Created By: Nory Farfan RN; Reaction Status: Active ; Category: Drug ; Substance: iodinated radiocontrast dyes ; Type: Allergy ; Updated By: Nory Farfan RN; Reviewed Date: 08/23/2021 13:37 EDT loratadine Estimated Onset Date: Unspecified ; Created By: SERGIO RILEY; Reaction Status: Active ; Category: Drug ; Substance: loratadine ; Type: Allergy ; Updated By: SERGIO RILEY; Reviewed Date: 08/23/2021 13:37 EDT penicillins Estimated Onset Date: Unspecified ; Created By: SERGIO RILEY; Reaction Status: Active ; Category: Drug ; Substance: penicillins ; Type: Allergy ; Updated By: SERGIO RILEY; Reviewed Date: 08/23/2021 13:37 EDT Percodan Estimated Onset Date: Unspecified ; Created By: JOSE TYSON RN; Reaction Status: Active ; Category: Drug ; Substance: Percodan ; Type: Allergy ; Updated By: JOSE TYSON RN; Reviewed Date: 08/23/2021 13:37 EDT phytonadione Estimated Onset Date: Unspecified ; Created By: SERGIO RILEY; Reaction Status: Active ; Category: Drug ; Substance: phytonadione ; Type: Allergy ; Updated By: SERGIO RILEY; Reviewed Date: 08/23/2021 13:37 EDT rofecoxib Estimated Onset Date: Unspecified ; Created By: SERGIO RILEY; Reaction Status: Active ; Category: Drug ; Substance: rofecoxib ; Type: Allergy ; Updated By: SERGIO RILEY; Reviewed Date: 08/23/2021 13:37 EDT sulfADIAZINE Estimated Onset Date: Unspecified ; Created By: SERGIO RILEY; Reaction Status: Active ; Category: Drug ; Substance: sulfADIAZINE ; Type: Allergy ; Updated By: SERGIO RILEY; Reviewed Date: 08/23/2021 13:37 EDT tetracaine Estimated Onset Date: Unspecified ; Created By: SERGIO RILEY; Reaction Status: Active ; Category: Drug ; Substance: tetracaine ; Type: Allergy ; Updated By: CONTRIBUTOR_SYSTEM, HIST_CERNER; Reviewed Date: 08/23/2021 13:37 EDT Vioxx Estimated Onset Date: Unspecified ; Created By: JOSE TYSON RN; Reaction Status: Active ; Category: Drug ; Substance: Vioxx ; Type: Allergy ; Updated By: JOSE TYSON RN; Reviewed Date: 08/23/2021 13:37 EDT Vitamin K Estimated Onset Date: Unspecified ; Created By: Nory Farfan RN; Reaction Status: Active ; Category: Drug ; Substance: Vitamin K ; Type: Allergy ; Updated By: Nory Farfan RN; Reviewed Date: 08/23/2021 13:37 EDT Diagnosis Control ED (As Of: 08/23/2021 13:42:42 EDT) Problems(Active) Anxiety (SNOMED CT :62458850 ) Name of Problem: Anxiety ; Recorder: JOSE TYSON RN; Confirmation: Confirmed ; Classification: Patient Stated ; Code: [id number] ; Contributor System: Nexi ; Last Updated: 12/08/2014 8:41 EST ; Life Cycle Date: 12/08/2014 ; Life Cycle Status: Active ; Vocabulary: SNOMED CT Arthritis (SNOMED CT :1358546 ) Name of Problem: Arthritis ; Recorder: Nory Farfan RN; Confirmation: Confirmed ; Classification: Patient Stated ; Code: [id number] ; Contributor System: Nexi ; Last Updated: 06/12/2021 12:48 EDT ; Life Cycle Date: 06/12/2021 ; Life Cycle Status: Active ; Vocabulary: SNOMED CT At risk for sleep apnea (IMO :90011092 ) Name of Problem: At risk for sleep apnea ; Recorder: SYSTEM, SYSTEM; Confirmation: Confirmed ; Classification: Medical ; Code: 79840743 ; Last Updated: 10/09/2019 21:47 EST ; Life Cycle Date: 10/09/2019 ; Life Cycle Status: Active ; Vocabulary: IMO Atrial fibrillation (SNOMED CT :88668298 ) Name of Problem: Atrial fibrillation ; Recorder: JOSE TYSON RN; Confirmation: Confirmed ; Classification: Patient Stated ; Code: 00414608 ; Contributor System: Meet My FriendsChart ; Last Updated: 12/08/2014 8:42 EST ; Life Cycle Date: 12/08/2014 ; Life Cycle Status: Active ; Vocabulary: SNOMED CT Atrial fibrillation (SNOMED CT :97404752 ) Name of Problem: Atrial fibrillation ; Recorder: DUANE TAVERA APRN; Confirmation: Confirmed ; Classification: Medical ; Code: 38608534 ; Contributor System: PowerChart ; Last Updated: 10/10/2019 11:36 EST ; Life Cycle Status: Active ; Vocabulary: SNOMED CT Chronic CHF (SNOMED CT :549153157 ) Name of Problem: Chronic CHF ; Recorder: JOSE TYSON RN; Confirmation: Confirmed ; Classification: Patient Stated ; Code: 169086970 ; Contributor System: PowerChart ; Last Updated: 12/08/2014 8:43 EST ; Life Cycle Date: 12/08/2014 ; Life Cycle Status: Active ; Vocabulary: SNOMED CT Chronic obstructive pulmonary disease (COPD) (SNOMED CT :71855882 ) Name of Problem: Chronic obstructive pulmonary disease (COPD) ; Recorder: Nory Farfan RN; Confirmation: Confirmed ; Classification: Patient Stated ; Code: 26587384 ; Contributor System: PowerChart ; Last Updated: 06/12/2021 12:49 EDT ; Life Cycle Date: 06/12/2021 ; Life Cycle Status: Active ; Vocabulary: SNOMED CT Chronic respiratory failure (SNOMED CT :24823835 ) Name of Problem: Chronic respiratory failure ; Recorder: JOSE TYSON RN; Confirmation: Confirmed ; Classification: Patient Stated ; Code: 76495530 ; Contributor System: PowerChart ; Last Updated: 12/08/2014 8:42 EST ; Life Cycle Date: 12/08/2014 ; Life Cycle Status: Active ; Vocabulary: SNOMED CT Diverticulosis (SNOMED CT :9993793789 ) Name of Problem: Diverticulosis ; Recorder: Nory Farfan RN; Confirmation: Confirmed ; Classification: Patient Stated ; Code: 5493091527 ; Contributor System: PowerChart ; Last Updated: 06/12/2021 12:48 EDT ; Life Cycle Date: 06/12/2021 ; Life Cycle Status: Active ; Vocabulary: SNOMED CT Fibromyalgia (SNOMED CT :034829362 ) Name of Problem: Fibromyalgia ; Recorder: Nory Farfan RN; Confirmation: Confirmed ; Classification: Patient Stated ; Code: 818395888 ; Contributor System: PowerChart ; Last Updated: 06/12/2021 12:48 EDT ; Life Cycle Date: 06/12/2021 ; Life Cycle Status: Active ; Vocabulary: SNOMED CT H/O hyperlipidemia (SNOMED CT :570054009 ) Name of Problem: H/O hyperlipidemia ; Recorder: JOSE TYSON RN; Confirmation: Confirmed ; Classification: Patient Stated ; Code: 504030640 ; Contributor System: PowerChart ; Last Updated: 12/08/2014 8:43 EST ; Life Cycle Date: 12/08/2014 ; Life Cycle Status: Active ; Vocabulary: SNOMED CT H/O sick sinus syndrome (SNOMED CT :351995149 ) Name of Problem: H/O sick sinus syndrome ; Recorder: JOSE TYSNO RN; Confirmation: Confirmed ; Classification: Patient Stated ; Code: 008279006 ; Contributor System: Meet My FriendsChart ; Last Updated: 12/08/2014 8:43 EST ; Life Cycle Date: 12/08/2014 ; Life Cycle Status: Active ; Vocabulary: SNOMED CT Hyperlipidemia (SNOMED CT :91842291 ) Name of Problem: Hyperlipidemia ; Recorder: AYSE DUANE, SINGING MESSENGER; Confirmation: Confirmed ; Classification: Medical ; Code: 75790335 ; Contributor System: PowerChart ; Last Updated: 10/10/2019 11:36 EST ; Life Cycle Status: Active ; Vocabulary: SNOMED CT Hypertension (SNOMED CT :71934876 ) Name of Problem: Hypertension ; Recorder: AYSE DUANE, SINGING MESSENGER; Confirmation: Confirmed ; Classification: Medical ; Code: 38260908 ; Contributor System: PowerChart ; Last Updated: 10/10/2019 11:36 EST ; Life Cycle Status: Active ; Vocabulary: SNOMED CT Leg swelling (SNOMED CT :7231891639 ) Name of Problem: Leg swelling ; Recorder: JOSE TYSON RN; Confirmation: Confirmed ; Classification: Patient Stated ; Code: [id number] ; Contributor System: PowerChart ; Last Updated: 12/08/2014 8:44 EST ; Life Cycle Date: 12/08/2014 ; Life Cycle Status: Active ; Vocabulary: SNOMED CT Diagnoses(Active) Weakness Date: 08/23/2021 ; Diagnosis Type: Reason For Visit ; Confirmation: Complaint of ; Clinical Dx: Weakness ; Classification: Medical ; Clinical Service: Emergency medicine ; Code: PNED ; Probability: 0 ; Diagnosis Code: [id number] ED Height and Weight Height Source : Stated Height Entry Format : [place] Height, Feet : 5 ft(Converted to: 152 cm, 60 Inch) Height, Inches : 7 Inch(Converted to: 0 ft 7 Inch, 17.78 cm) Clinical Height : 170.18 cm Weight Source, ED : Critical estimated dosing weight Weight Entry Format : [place] Weight, Pounds : 140 lb Clinical Dosing Weight : 63.64 kg Body Surface Area (BSA) : 1.74 m2 Body Mass Index : 22 kg/m2 [place] Body Weight (IBW) : 61.16 kg GEORGINA EVERETT RN - 08/23/2021 13:34 EDT Electronically signed by Cecy [facility] Conversion Crack Off Person Cerner at 03/07/2023 1:28 PM CDT documented in this encounter Plan of Treatment Upcoming Encounters Date Type Department Care Team (Late st Contact Info) Description 09/07/2025 10:45 AM EDT Office Visit [facility] Electrophysiology [address] [place] [id number] [place] [address] [place] [address] [address] [place] [address] documented as of this encounter Visit Diagnoses Not on filedocumented in this encounter Care Teams Executive Legal Secretary Relationship Specialty Start Date End Date Niranjan Mccarty MD [address] [place] [address] PCP - General Adolescent Medicine 10/15/23 documented as of this encounter
--- OUTSIDE RECORDS SUMMARY | 2025-04-27 09:51 | XMS_ITS | Encounter Summary ---
Author Organization [employer] Address [address] [place] [address] Care Team Providers Care Front Load Trash Truck Driver Name Role Phone Niranjan Mccarty MD Primary Care Provider [phone] Encounter Details Date Type Department Care Team (Late st Contact Info) Description 10/10/2019 Transcribed Document [facility] [place] Family [place] [facility] [place] [address] ProviderAkash MD [address] [place] [address] Social History Tobacco Use Types Packs/Day Years Used Date Smoking Tobacco: Never Assessed Comments Unknown Sex and Gender Information Value Date Recorded Sex Assigned at Not on file Legal Sex Female 1:32 PM CDT Gender Identity Not on file Sexual Orientation Not on file documented as of this encounter Miscellaneous Notes * Cerner Conversion Note - Akash ProviderMD - 10/10/2019 9:00 PM COMPUTER TERMINAL OPERATOR Pain Assessment Entered On: 10/10/2019 22:55 EST Performed On: 10/10/2019 21:06 EST by MEKA MANSFIELD RN Intervention Information: traMADol Performed by MEKA MANSFIELD RN on 10/10/2019 20:06:00 EST traMADol,50mg Oral Pain Assessment Pain Assessment : Follow-up assessment Pain Scale Goal : 4 Pain Improved by Intervention : Yes MEKA MANSFIELD RN - 10/10/2019 22:55 EST documented in this encounter Plan of Treatment Upcoming Encounters Date Type Department Care Team (Late st Contact Info) Description 09/07/2025 10:45 AM EDT Office Visit [facility] Electrophysiology [address] [facility] [address] [place] [address] Adrienne Dunn MD [address] [facility] [address] [place], [place] [id number] documented as of this encounter Visit Diagnoses Not on filedocumented in this encounter Care Teams Front Load Trash Truck Driver Relationship Specialty Start Date End Date Niranjan Mccarty MD [address] [place] [address] PCP - General Adolescent Medicine 10/15/23 documented as of this encounter
--- OUTSIDE RECORDS SUMMARY | 2025-04-27 09:51 | XMS_ITS | Encounter Summary ---
Author Organization [employer] Address [address] [place] [address] Care Team Providers Care Senior Software Development Engineer Name Role Phone Niranjan Mccarty MD Primary Care Provider [phone] Encounter Details Date Type Department Care Team (Late st Contact Info) Description 08/23/2021 Transcribed Document [facility] [place] [facility] [place] [address] ProviderAkash MD [address] [place] [address] Social History Tobacco Use Types Packs/Day Years Used Date Smoking Tobacco: Never Assessed Comments Unknown Sex and Gender Information Value Date Recorded Sex Assigned at Not on file Legal Sex Female 1:32 PM CDT Gender Identity Not on file Sexual Orientation Not on file documented as of this encounter Miscellaneous Notes * Cerner Conversion Note - Akash ProviderMD - 08/23/2021 6:35 PM CDT Electronically signed by Cecy [facility] Conversion Property Damage Claims Adjustor Cerner at 03/07/2023 1:37 PM CDT documented in this encounter Plan of Treatment Upcoming Encounters Date Type Department Care Team (Late st Contact Info) Description 09/07/2025 10:45 AM EDT Office Visit [facility] [address] [place] [address] [address] [place] [address] Adrienne Dunn MD [address] [place] [address] [address] [place] [address] documented as of this encounter Visit Diagnoses Not on filedocumented in this encounter Care Teams Senior Software Development Engineer Relationship Specialty Start Date End Date Niranjan Mccarty MD [address] [place] [address] PCP - General Adolescent Medicine 10/15/23 documented as of this encounter
--- OUTSIDE RECORDS SUMMARY | 2025-04-27 09:51 | XMS_ITS | Encounter Summary ---
Author Organization [employer] Address [address] [place] [address] Care Team Providers Care Food Or Baggage Handling Rampman Name Role Phone Niranjan Mccarty MD Primary Care Provider [phone] Encounter Details Date Type Department Care Team (Late st Contact Info) Description 06/12/2021 Transcribed Document [facility] [place] [address] [place] [address] ProviderAkash MD [address] [place] [address] Social History Tobacco Use Types Packs/Day Years Used Date Smoking Tobacco: Never Assessed Comments Unknown Sex and Gender Information Value Date Recorded Sex Assigned at Not on file Legal Sex Female 1:32 PM CDT Gender Identity Not on file Sexual Orientation Not on file documented as of this encounter Miscellaneous Notes * Cerner Conversion Note - Akash ProviderMD - 06/12/2021 8:26 PM CDT Meds to Bed Enrollment Entered On: 06/13/2021 8:03 EDT Performed On: 06/12/2021 20:26 EDT by ALCIDES FREDERICK RPh Meds to Bed Enrollment Patient Enrollment Decision: : No/do not enroll in meds to bed program Reason for Declining Meds to Bed Program: : Prefer to use home pharmacy ALCIDES FREDERICK RPh - 06/13/2021 8:03 EDT documented in this encounter Plan of Treatment Upcoming Encounters Date Type Department Care Team (Late st Contact Info) Description 09/07/2025 10:45 AM EDT Office Visit [facility] Electrophysiology [address] [facility] [address] [place] [phone] Adrienne Dunn MD [address] [facility] [address] [place] [address] documented as of this encounter Visit Diagnoses Not on filedocumented in this encounter Care Teams Food Or Baggage Handling Rampman Relationship Specialty Start Date End Date Niranjan Mccarty MD [address] [place] [address] PCP - General Adolescent Medicine 10/15/23 documented as of this encounter
--- OUTSIDE RECORDS SUMMARY | 2025-04-27 09:51 | XMS_ITS | Clinical Summary ---
Author Organization [employer] Address [address] [place] [address] Care Team Providers Care Busperson Name Role Phone Niranjan Mccarty MD Primary Care Provider [phone] Allergies Active Allergy Reactions Criticality Noted Date Comments Calcium Carbonate 10/23/2022 Other reaction(s): Other Cefuroxime 10/23/2022 Other reaction(s): Other Cephalexin 10/23/2022 Ciprocinonide 05/24/2010 Other reaction(s): Other Ciprofloxacin 10/23/2022 Clarithromycin Diarrhea 05/24/2010 Codeine 05/24/2010 Other reaction(s): Not available Cortisone 10/23/2022 Other reaction(s): Other Doxycycline 09/20/2016 Other reaction(s): Other Erythromycin 05/24/2010 Erythromycin Base 10/23/2022 Other reaction(s): Other Fexofenadine 05/24/2010 Hydrocortisone 05/24/2010 Iodinated Contrast Media 10/23/2022 Other reaction(s): katy camacho Loratadine 05/24/2010 Penicillins 05/24/2010 Other reaction(s): Not available Phytonadione (Vit K1) (Bulk) 022 Rofecoxib 05/24/2010 Sulfa (Sulfonamide Antibiotics) 05/24/2010 Other reaction(s): Not available Tetracaine Low 02/19/2023 Other Reaction(s): Not available, PAIN IN EYE Vitamin K1-Vitamin E Tpgs 05/24/2010 Medications ALPRAZolam (XANAX) 0.5 MG tablet 3 (three) times daily as needed. Active pantoprazole (PROTONIX) 20 MG tablet daily. Active umeclidinium-nadeem nteroL (Anoro Ellipta) 62.5-25 mcg/actuation DsDv daily. Active warfarin (COUMADIN, JANTOVEN) 7.5 MG tablet daily. Active carBAMazepine (TEGretol) 200 mg tablet daily. Active traMADoL (ULTRAM) 50 mg tablet tramadol 50 mg tablet Take 1 tablet every 6 hours by oral route as needed. Active acetaminophen (TYLENOL) 500 MG tablet Tylenol Extra Strength 500 mg tablet Take 1 tablet every 4 hours by oral route as needed. Active sotaloL (BETAPACE) 160 MG tabletIndications :Paroxysmal atrial fibrillation (HCC) Take 1 tablet (160 mg total) by mouth 2 (two) times daily. 180 tablet 3 4 Active digoxin (LANOXIN) 125 mcg (0.125 mg) tabletIndications :Paroxysmal atrial fibrillation (HCC) Take 1 tablet (125 mcg total) by mouth daily. 90 tablet 3 4 Active torsemide (DEMADEX) 10 MG tabletIndications :Paroxysmal atrial fibrillation (HCC),Localized edema Take 1 tablet (10 mg total) by mouth daily. 90 tablet 3 5 12/27/19 26 Active Active Problems Problem Noted Date Diagnosed Date Encounter for adjustment or management of cardia c device 11/29/2024 Paroxysmal atrial fibrillation 04/06/2024 0 04/06/2024 Complete atrioventricular block 09/19/2021 04/06/2024 Presence of cardiac pacemaker 06/07/2021 Hyperlipidemia 09/18/2020 04/06/2024 Sick sinus syndrome 09/15/2019 04/06/2024 Hypertension 09/15/2019 04/06/2024 Encounters Date Type Department Care Team Description 04/06/2025 5:00 AM EDT Clinical Support [facility] Electrophysiology [address] [place] [phone] Adrienne Dunn MD Encounter for adjustment or management of cardiac device (Primary Dx); Paroxysmal atrial fibrillation (HCC); Presence of cardiac pacemaker; Sick sinus syndrome (HCC); Complete atrioventricular block (HCC) 03/02/2025 11:00 AM EDT Office Visit [facility] Electrophysiology [address] [place], [place] [phone] Adrienne Dunn MD Encounter for adjustment or management of cardiac device (Primary Dx); Paroxysmal atrial fibrillation (HCC); CHB (complete heart block) (HCC) 03/02/2025 Travel 02/02/2025 Telephone [facility] Electrophysiology [address] [place] [phone] Antwan Mckeon RN cardiac clearance 01/31/2025 Telephone [facility] Electrophysiology [address] [place] [phone] Adrienne Dunn MD clearance/hold blood thinner from Last 3 Months Social History Tobacco Use Types Packs/Day Years [...] Date Garrett rded Speak language other than Tamazight at home Not on file 11/28/2023 Want [...] on file Sexual Orientation Not on file Last Filed Vital Signs Vital Sign Reading [...] Mass Index 20.3 03/02/2025 11:59 AM EDT Plan of Treatment Upcoming Encounters Date Type Department Care Team (Late st Contact Info) Description 09/07/2025 10:45 AM EDT Office Visit [facility] Electrophysiology [address] [place] [address] [address] [place] [address] [place] [address] [place] [address] [address] [place] [address] Health Maintenance Due Date Last Done Comments Depression Screening (12+) 1947 DTAP/TDAP/TD VACCINES (1 - Tdap) 1954 Pneumococcal 50+ years (1 of 1 - PCV) 1985 Shingles Vaccine (Zoster) (1 of 2) 1985 Medicare Initial AWV G0438 12/19/2001 Respiratory Syncytial Virus (RSV) Adult or (1 - 1-dose 75+ series) 2010 COVID-19 VACCINE ( - season) 2024 Falls Risk Screening 11/17/2024 Influenza Vaccine (Season Ended) 2025 Tobacco Cessation Counseling and Screening (12+) 03/0203/02/2025 Medical Devices Implanted Type Area Career Based Intervention Coordinator Device Identifier Shelf Expiration Date Model / Serial / Lot Pacemakers-06/13 Implanted:06/13 (Quantity not on file) Pacemakers MEDROSEMARIE VERA / [id number] / Description:DEPENDENT Insurance Marina VELASQUE[place] [id number] MEDICARE PART A B Care Teams Busperson Relationship Specialty Start Date End Date Niranjan Mccarty MD [address] [place] [address] PCP - General Adolescent Medicine 10/15/23
--- OUTSIDE RECORDS SUMMARY | 2025-04-27 09:51 | XMS_ITS | Encounter Summary ---
Author Organization [employer] Address [address] [place] [address] Care Team Providers Care Animal Science Professor Name Role Phone Niranjan Mccarty MD Primary Care Provider [phone] Encounter Details Date Type Department Care Team (Late st Contact Info) Description 10/10/2019 Transcribed Document [facility] Family [facility] [place] [address] ProviderAkash MD [address] [place] [address] Social History Tobacco Use Types Packs/Day Years Used Date Smoking Tobacco: Never Assessed Comments Unknown Sex and Gender Information Value Date Recorded Sex Assigned at Not on file Legal Sex Female 1:32 PM CDT Gender Identity Not on file Sexual Orientation Not on file documented as of this encounter Miscellaneous Notes * Cerner Conversion Note - Akash Vega MD - 10/10/2019 8:07 AM NATIONAL PARK RANGER Patient: TRAN PEGUERO Age: 83 years Sex: Female : 1935 Associated Diagnoses: None Author: Nataly Diaz, Pharmacist-Resident Coumadin Note HPI: PM is a 83yo F who presents with chest pain. PMH: HTN, HLD, AFib (on Coumadin), COPD, and gastric ulcers. Indication: AFib Goal INR: 2-3 Home Dose of Warfarin: [...] (OCT 10) 9.0 (OCT 09) PT H 19.9 (OCT 10) H 20.6 (OCT 09) INR H 1.9 (OCT 10) H 2.0 (OCT 09) Troponin <0.015 (OCT 10) <0.015 (OCT 09) Current Trend: Date: 10/09 10/10 INR: 2.0 1.9 Dose: 7.5 (7.5) Drug Interactions: Carbamazepine - decrease serum conc of Warfarin (major) Tramadol - increase in INR with Warfarin (moderate) A/P: 1) Patient confirms she takes Warfarin 7.5mg daily 2) Will continue home dose at this time and monitor for changes 3) Daily PT/INR ordered Nataly Diaz PharmD PGY-1 Delivery Rn Pager: [phone] documented in this encounter Plan of Treatment Upcoming Encounters Date Type Department Care Team (Late st Contact Info) Description 09/07/2025 10:45 AM EDT Office Visit [facility] Electrophysiology [address] [facility] [address] [place] [phone] Adrienne Dunn MD [address] [facility] [address] [place] [address] documented as of this encounter Visit Diagnoses Not on filedocumented in this encounter Care Teams Animal Science Professor Relationship Specialty Start Date End Date Niranjan Mccarty MD [address] [place] [address] PCP - General Adolescent Medicine 10/15/23 documented as of this encounter
--- OUTSIDE RECORDS SUMMARY | 2025-04-27 09:51 | XMS_ITS | Encounter Summary ---
Author Organization [employer] Address [address] [place] [address] Care Team Providers Care Drag Sawyer Name Role Phone Niranjan Mccarty MD Primary Care Provider [phone] Encounter Details Date Type Department Care Team (Late st Contact Info) Description 10/11/2019 Transcribed Document [facility] Family [facility] [place] [place] [address] ProviderAkash MD [address] [place] [address] Social History Tobacco Use Types Packs/Day Years Used Date Smoking Tobacco: Never Assessed Comments Unknown Sex and Gender Information Value Date Recorded Sex Assigned at Not on file Legal Sex Female 1:32 PM CDT Gender Identity Not on file Sexual Orientation Not on file documented as of this encounter Miscellaneous Notes * Cerner Conversion Note - Akash ProviderMD - 10/11/2019 8:57 AM BILINGUAL MANAGER Event Note Entered On: 10/11/2019 8:57 EST Performed On: 10/11/2019 8:57 EST by Carlos Burroughs RN Event Note Event Date/Time : 10/11/2019 8:57 EST Description of Event : Pt. wants to wait until post stress test to take protonix and tramadol. Pt. agreed to take sotalol with a sip of water prior to procedure. Carlos Burroughs RN - 10/11/2019 8:57 EST documented in this encounter Plan of Treatment Upcoming Encounters Date Type Department Care Team (Late st Contact Info) Description 09/07/2025 10:45 AM EDT Office Visit [facility] Electrophysiology [address] [facility] [address] [place] [address] Adrienne Dunn MD [address] [facility] [address] [place] [address] documented as of this encounter Visit Diagnoses Not on filedocumented in this encounter Care Teams Drag Sawyer Relationship Specialty Start Date End Date Niranjan Mccarty MD [address] [place] [address] PCP - General Adolescent Medicine 10/15/23 documented as of this encounter
--- OUTSIDE RECORDS SUMMARY | 2025-04-27 09:51 | XMS_ITS | Referral Summary ---
Author Organization [employer] Address [address] [place] [address] Care Team Providers Care Insurance Account Representative Name Role Phone Niranjan Mccarty MD Primary Care Provider [phone] Encounters Date Type Department Care Team Description 04/06/2025 5:00 AM EDT Clinical Support [facility] Electrophysiology [address] [place] [phone] Adrienne Dunn MD Encounter for adjustment or management of cardiac device (Primary Dx); Paroxysmal atrial fibrillation (HCC); Presence of cardiac pacemaker; Sick sinus syndrome (HCC); Complete atrioventricular block (HCC) 03/02/2025 Travel 03/02/2025 11:00 AM EDT Office Visit [facility] Electrophysiology [address] [place] [phone] Adrienne Dunn MD Encounter for adjustment or management of cardiac device (Primary Dx); Paroxysmal atrial fibrillation (HCC); CHB (complete heart block) (HCC) 02/02/2025 Telephone [facility] Electrophysiology [address] [place] [phone] Antwan Mckeon RN cardiac clearance 01/31/2025 Telephone [facility] Electrophysiology [address] [place] [phone] Adrienne Dunn MD clearance/hold blood thinner from Last 3 Months Allergies Active Allergy Reactions Criticality Noted Date [...] 05/24/2010 Iodinated Contrast Media 10/23/2022 Other reaction(s): hives, lockjaw Loratadine 05/24/2010 Penicillins 05/24/2010 Other reaction(s): Not [...] sinus syndrome 09/15/2019 04/06/2024 Hypertension 09/15/2019 04/06/2024 Social History Tobacco Use Types Packs/Day Years [...] Date Garrett rded Speak language other than Vietnamese at home Not on file 11/28/2023 Want [...] Description 09/07/2025 10:45 AM EDT Office Visit [facility] Electrophysiology [address] [facility] [address] [place] [address] [place] [address] [place] [address] [address] [place], [place] [address] Medical Devices Implanted Type Area Energy Projects Lead Device Identifier Shelf Expiration Date Model / Serial / Lot Pacemakers-06/13 Implanted:06/13 (Quantity not on file) Pacemakers MEDTRON[employer] JODY / [id number] / Description:DEPENDENT Insurance MEDICARE PART A B Care Teams Insurance Account Representative Relationship Specialty Start Date End Date Niranjan Mccarty MD [address] [place] [address] PCP - General Adolescent Medicine 10/15/23
--- OUTSIDE RECORDS SUMMARY | 2025-04-27 09:51 | XMS_ITS | Encounter Summary ---
Author Organization [employer] Address [address] [place] [address] Care Team Providers Care Sole Filler Name Role Phone Niranjan Mccarty MD Primary Care Provider [phone] Encounter Details Date Type Department Care Team (Late st Contact Info) Description 06/12/2021 Transcribed Document [facility] [place] [address] ProviderAkash MD [address] [place] [address] Social History Tobacco Use Types Packs/Day Years Used Date Smoking Tobacco: Never Assessed Comments Unknown Sex and Gender Information Value Date Recorded Sex Assigned at Not on file Legal Sex Female 1:32 PM CDT Gender Identity Not on file Sexual Orientation Not on file documented as of this encounter Miscellaneous Notes * Cerner Conversion Note - Akash ProviderMD - 06/12/2021 11:10 PM CDT Admission History, Adult Entered On: 06/12/2021 23:17 EDT Performed On: 06/12/2021 23:10 EDT by Marilyn Ren Non Emp Traveler RN Advance Directive Patient has Advance Directive *Q : No, patient refuses Advance Directive information Marilyn Ren Non Emp Travelfran COBOS - 06/12/2021 23:10 EDT Anesthesia/Transfusion History Family History of Anesthesia Reaction : Prior transfusion reaction Type of Transfusion Reaction : Other: convulsions after a blood transfusion tremors - happened back in the 80s Blood Transfusion Acceptable to Patient : Yes Transfusion History : Prior anesthesia without reaction Family History of Anesthesia Reaction : None Marilyn Ren Non Emp Traveler RN - 06/12/2021 23:10 EDT Functional Assessment Living Situation : Home Patient Lives With : Spouse Current Home Treatments : Oxygen therapy Home Equipment : Marilyn Anderson Non Emp Traveler RN - 06/12/2021 23:10 EDT General Info Preferred Name : megah Arrived From : Home Mode of Arrival on Unit : Wheelchair Legal Guardian : Daughter Legal Guardian : No Support Person/Patient Beaming Machine Operator : Yes Support Person/Pt Rep Name : daughter- sherley gómez Contact Password : Fan Support Person/Pt Rep Contact Information : sherley- [phone] Want Family/Rep/Phys Notified of Admit : No Emergency Contact #1 : NA Emergency Contact #1 Phone Number : NA Emergency Contact #1 Relationship : NA Emergency Contact #2 : NA Emergency Contact #2 Phone Number : NA Emergency Contact #2 Relationship : NA Information Obtained From : Patient Primary Language : Australian Preferred Communication Mode : Verbal Communication Barrier : None Quality Assurance Coordinator Needed : Marilyn Ruvalcaba Non Emp Traveler RN - 06/12/2021 23:10 EDT Fall Risk Scales ABCs Fall Injury Risk Identification : Age, Coagulation, Surgery ABC Fall Injury Risk : Moderate to high injury risk WEAVER Hx Falls Immediate/Within 3 Months : No Weaver Secondary Diagnosis : Yes WEAVER Use of Ambulatory Aid : Bed rest/Nurse assist WEAVER IV Therapy or IV Access : Yes Weaver Gait/Transferring : Weak Weaver Mental Status : Oriented to own ability Weaver Fall Risk Score : 45 WEAVER Fall Scale Risk Level : 25-[address] Fall Interventions : Adequate lighting, Bed in low position, Call device within reach, Fall prevention handout/education per facility policy, Non-slip footwear, Personal items within reach, Reinforced to call for assistance before getting out of bed, Room free of clutter/spills, Upper side-rails up, Wheels locked, Wires/Cords secured Fall Moderate to High Risk Interventions : Chair alarm on, Fall contract/letter per facility policy, High Risk for Fall sign in place per policy, Patient room close to nurses station, Supervise toileting as indicated, Personal alarm on, Transport methods appropriate to patient, Toileting schedule Barriers to Learning : None evident Learning Style Preferences Patient : Verbal explanation Fall Risk Scale Calc Temp : 0 Marilyn Ren, Non Emp Traveler RN - 06/12/2021 23:10 EDT Health Histories Smoking Status : Never (less than 100 in lifetime; none in last 30 days) Smokeless Tobacco Status : Never Marilyn Ren, Non Emp Traveler RN - 06/12/2021 23:10 EDT Social History (As Of: 06/12/2021 23:17:29 EDT) Tobacco: Use in Last 12 Months: No. (Last Updated: 12/08/2014 08:21:41 EST by JOSE TYSON, PAPITO) Never (less than 100 in lifetime) Smoking Status. (Last Updated: 07/11/2018 20:18:12 EDT by BRAYAN LUNA RN) Alcohol: Alcohol Use History No. (Last Updated: 12/08/2014 08:21:45 EST by JOSE TYSON, PAPITO) Alcohol Use History No. Use in Last 12 Months: No. (Last Updated: 07/11/2018 20:18:12 EDT by BRAYAN LUNA RN) Substance Abuse: Drug Use Hx: No. Use in Last 12 Months: No. (Last Updated: 12/08/2014 08:21:50 EST by JOSE TYSON, PAPITO) Drug Use Hx: No. Use in Last 12 Months: No. (Last Updated: 07/11/2018 20:18:12 EDT by BRAYAN LUNA, RN) Nutrition/Health: Regular (Last Updated: 07/11/2018 20:18:12 EDT by BRAYAN LUNA, PAPITO) Home/Environment: Lives with Spouse. (Last Updated: 07/11/2018 20:18:12 EDT by BRAYAN LUNA RN) Height and Weight, Clinical Dosing Height Source : Stated Height Entry Format : [place] Height, Feet : 5 ft(Converted to: 152 cm, 60 Inch) Height, Inches : 7 Inch(Converted to: 0 ft 7 Inch, 17.78 cm) Clinical Height : 170.18 cm Weight Source : Standing scale Weight Entry Format : [place] Clinical Dosing Weight : 65.91 kg Weight, Pounds : 145 lb Body Surface Area (BSA) : 1.77 m2 Body Mass Index : 22.8 kg/m2 [place] Body Weight : 61 kg Marilyn Ren Non Emp Traveler - 06/12/2021 23:10 EDT Infectious Disease History Has the patient ever been tested for COVID-19? : Yes, Patient stated results Negative Date of COVID-19 test known? : No Does patient have symptoms of COVID-19? : No COVID19 Screening : No Experiencing Infectious Disease Symptoms : No symptoms Physical contact outside [place] in the last 30 days : No Infectious Disease History : Chicken pox/Shingles, Influenza, Measles, Scarlet fever Tuberculosis Symptoms : None RamandeepMyles hawthorneMarilyn J, Non Emp Traveler - 06/12/2021 23:10 EDT Influenza Vaccine Asmt, Adult Previous Vaccines from Immunization Schedule : No qualifying data available. Influenza Immunization, Current Season : No Inactivated Flu Vaccine Contraindications : No contraindications to inactivated influenza vaccine Transplant Workup/Recent Transplant : No Order for Influenza Vaccine : Declined Vaccination MarkosRodney dangeloreginald Charles Non Emp Traveler - 06/12/2021 23:10 EDT Pneumococcal Vaccine Previous Vaccines from Immunization Schedule : No qualifying data available. Pneumonia Immunization Received : No Pneumococcal Risk Assessment < Age 65 : N/A- Patient 65 years of age or older Pneumococcal Vaccine Contraindications : No contraindications to pneumococcal vaccine Transplant Workup/Recent Transplant : No Order for Pneumococcal Vaccine : Declined Vaccination Ramandeepmarine MarilynReina Stringer Emp Traveler - 06/12/2021 23:10 EDT Order Details Transport Mode Order Detail : Ambulatory Order Detail : N/A Lift/Transfer : Independent Room Service : Appropriate Patient Needs Meds Crushed/Liquid : No Marilyn Ren Non Emp Traveler - 06/12/2021 23:10 EDT Nutrition History Feeding Ability : Independent Adaptive Feeding Equipment : Regular Oral Medication Administration : By mouth Eating Poorly Due to Decreased Appetite : No Unplanned Weight Loss in Past 3-6 Months : No Malnutrition Screening Tool Total(mal) : 0 Malnutrition Screening Tool Risk Level : Patient not at risk Ramandeepmarine MarilynReina Stringer Emp Traveler - 06/12/2021 23:10 EDT [place] Suicide Severity Rating Scale (C-SSRS) CSSRS Past Month Wish to be : No CSSRS Past Month Suicidal Thoughts : No CSSRS Lifetime Suicide Behavior : No Suicide Severity Rating Score : 0 Suicide Severity Rating : No Additional Care Required at this time MelvinaapolinarMyles dangeloannreginald Charles Non Emp Traveler RN - 06/12/2021 23:10 EDT Psychosocial History Do You Have a History of the Following? : Anxiety Currently in Unsafe Situation : No RamandeepRodney hawthornee Melvin Non Emp Traveler RN - 06/12/2021 23:10 EDT Sleep Apnea Risk Assmt Hx of Obstructive [...] Sleep Apnea Risk Level Score : 3 MarkosMarilyn dangelo Non Emp Traveler RN - 06/12/2021 23:10 EDT Valuables and Belongings Valuables and Belongings : Clothing, Jewelry, Personal devices, Personal items Clothing : Common streetwear Clothing Disposition : Bedside Personal Device Disposition : With family, With patient, Declines to send to security/safe Jewelry : Ring, Watch Jewelry Disposition : With patient, Declines to send to security/safe Personal Devices : Dentures, lower, Glasses Personal Items : Cell phone, Purse Personal Items Disposition : With family, Declines to send to security/safe MelvinaapolinarMarilyn dangelo Non Emp Traveler RN - 06/12/2021 23:10 EDT documented in this encounter Plan of Treatment Upcoming Encounters Date Type Department Care Team (Late st Contact Info) Description 09/07/2025 10:45 AM EDT Office Visit [facility] Electrophysiology [address] [facility] [address] [place] [address] Adrienne Dunn MD [address] [facility] [address] [place] [address] documented as of this encounter Visit Diagnoses Not on filedocumented in this encounter Care Teams Sole Filler Relationship Specialty Start Date End Date Niranjan Mccarty MD [address] [place] [address] PCP - General Adolescent Medicine 10/15/23 documented as of this encounter
--- OUTSIDE RECORDS SUMMARY | 2025-04-27 09:51 | XMS_ITS | Encounter Summary ---
Author Organization [employer] Address [address] [place] [address] Care Team Providers Care Net Solutions Architect Name Role Phone Niranjan Mccarty MD Primary Care Provider [phone] Encounter Details Date Type Department Care Team (Late Contact Info) Description 10/10/2019 Transcribed Document [facility] Family [facility] [place] [address] ProviderAkash MD [address] [place] [address] Social History Tobacco Use Types Packs/Day Years Used Date Smoking Tobacco: Never Assessed Comments Unknown Sex and Gender Information Value Date Recorded Sex Assigned at Not on file Legal Sex Female 1:32 PM CDT Gender Identity Not on file Sexual Orientation Not on file documented as of this encounter Miscellaneous Notes * Cerner Conversion Note - Akash ProviderMD - 10/10/2019 2:00 AM CITY LIBRARY DIRECTOR Estate Attorney Details Entered On: 10/10/2019 1:12 EST Performed On: 10/10/2019 2:00 EST by MEKA MANSFIELD RN Order Details Order Detail : N/A IV Order Detail : 1 Oxygen Order Detail : 1 Nurse Collect Order Detail : 0 Lift/Transfer : Moderate assist Central Line Order Detail : No Room Service : Appropriate Arterial Line : No MEKA MANSFIELD RN - 10/10/2019 1:12 EST Electronically signed by [facility] Conversion Community Administrator Cerner at 03/07/2023 1:26 PM CDT documented in this encounter Plan of Treatment Upcoming Encounters Date Type Department Care Team (Late Contact Info) Description 09/07/2025 10:45 AM EDT Office Visit [facility] Electrophysiology [address] [facility] [address] [place] [phone] Adrienne Dunn MD [address] [facility] [address] [place], [place] [id number] documented as of this encounter Visit Diagnoses Not on filedocumented in this encounter Care Teams Net Solutions Architect Relationship Specialty Start Date End Date Niranjan Mccarty MD [address] [place] [address] PCP - General Adolescent Medicine 10/15/23 documented as of this encounter
--- OUTSIDE RECORDS SUMMARY | 2025-04-27 09:51 | XMS_ITS | Encounter Summary ---
Author Organization [employer] Address [address] [facility] [place] [address] Care Team Providers Care Pediatrics Hospitalist Name Role Phone Niranjan Mccarty MD Primary Care Provider [phone] Encounter Details Date Type Department Care Team (Late st Contact Info) Description 10/10/2019 Transcribed Document [facility] Family Medicine [facility] [place] [address] ProviderAkash MD [address] [place] [id number] Social History Tobacco Use Types Packs/Day Years Used Date Smoking Tobacco: Never Assessed Comments Unknown Sex and Gender Information Value Date Recorded Sex Assigned at Not on file Legal Sex Female 1:32 PM CDT Gender Identity Not on file Sexual Orientation Not on file documented as of this encounter Miscellaneous Notes * Cerner Conversion Note - Historical ProviderMD - 10/10/2019 5:00 AM [employer] Chart Check - Review Order Profile Entered On: 10/10/2019 4:41 EST Performed On: 10/10/2019 5:00 EST by MEKA MANSFIELD RN Chart Check All Active Orders Reviewed : Yes MEKA MANSFIELD RN - 10/10/2019 4:41 EST documented in this encounter Plan of Treatment Upcoming Encounters Date Type Department Care Team (Late st Contact Info) Description 09/07/2025 10:45 AM EDT Office Visit [address] [address] Adrienne Dunn MD [address] [facility] [address] [place], [place] [id number] documented as of this encounter Visit Diagnoses Not on filedocumented in this encounter Care Teams Pediatrics Hospitalist Relationship Specialty Start Date End Date Niranjan Mccarty MD [address] [place] [address] PCP - General Adolescent Medicine 10/15/23 documented as of this encounter
--- OUTSIDE RECORDS SUMMARY | 2025-04-27 09:51 | XMS_ITS | Encounter Summary ---
Author Organization [employer] Address [address] [place] [address] Care Team Providers Care [employer] Officer Name Role Phone Niranjan Mccarty MD Primary Care Provider [phone] Encounter Details Date Type Department Care Team (Late st Contact Info) Description 10/10/2019 Transcribed Document [facility] Cardiology [address] [facility] [address] [place] [address] Ashvin Dugan MD [address] [facility] [address] [place], [place] [id number] Social History Tobacco Use Types Packs/Day Years Used Date Smoking Tobacco: Never Assessed Comments Unknown Sex and Gender Information Value Date Recorded Sex Assigned at Not on file Legal Sex Female 1:32 PM CDT Gender Identity Not on file Sexual Orientation Not on file documented as of this encounter Miscellaneous Notes * Cerner Conversion Note - Ashvin Dugan MD - 10/10/2019 12:28 PM EST Patient: TRAN PEGUERO Age: 83 years Sex: Female : 1935 Associated Diagnoses: None Author: ASHVIN DUGAN MD-CAR Basic Information PCP: NIRANJAN MORRIS MD [employer] Operator: Cole SAMUEL Chief Complaint chest pain History of Present Illness 83 year old female with a history of hypertension, hyperlipidemia, atrial fibrillation, SSS status post pacemaker placement, chronic anticoagulation with Coumadin, COPD. She presented to [facility] ER yesterday with complaints of chest pain. The pain was localized in the left side and radiated into her neck. She became diaphoretic and nauseated. The pain lasted for several minutes but returned later prompting her to seek medical attention. Troponin was negative however, based on her history and symptoms she was transferred to [facility] for evaluation. She is currently chest pain free and in no acute distress. She denies chest pain or shortness of breath since she has been admitted. Review of Systems Constitutional: Negative except as documented in history of present illness. Eye: Negative except as documented in history of present illness. Ear/Nose/Mouth/Throat: Negative except as documented in history of present illness. Respiratory: Negative except as documented in history of present illness. Cardiovascular: Negative except as documented in history of present illness. Gastrointestinal: Negative except as documented in history of present illness. Genitourinary: Negative except as documented in history of present illness. Hematology/Lymphatics: Negative except as documented in history of present illness. Endocrine: Negative except as documented in history of present illness. Immunologic: Negative except as documented in history of present illness. Musculoskeletal: Negative except as documented in history of present illness. Integumentary: Negative except as documented in history of present illness. Neurologic: Negative except as documented in history of present illness. Psychiatric: Negative except as documented in history of present illness. Health Status Allergies (8) Active Reaction Advicor None Documented Radha None Documented azithromycin None Documented Biaxin None Documented cefuroxime None Documented Claritin None Documented Percodan None Documented Vioxx None Documented Home Medications (12) Active Anoro Ellipta 62.5 [...] mg = 1 Tab, PRN, Oral, BID Current medications: Medications (12) Active Scheduled: (7) carBAMazepine 200 [...] 50 mg 1 Tab, Oral, Q12H warfarin 7.5 mg tab 7.5 mg 1 Tab, Oral, Daily Continuous: (0) [...] IV Push, Q4H Problem list: Active Problems (8) Anxiety At risk for sleep apnea Atrial fibrillation Chronic CHF Chronic respiratory failure H/O hyperlipidemia H/O sick sinus syndrome Leg swelling Histories No education data available. Social & Psychosocial Habits Alcohol 12/08/2014 Alcohol Use History, Social Habits No 07/11/2018 Alcohol Use History, Social Habits No Alcohol Use in Last Twelve Months No Home/Environment 07/11/2018 Lives with: Spouse Nutrition/Health 07/11/2018 Type of diet: Regular Substance Abuse 12/08/2014 Recreational Drug Use History No Recreational Drug Use Last 12 Months No 07/11/2018 Recreational Drug Use History No Recreational Drug Use Last 12 Months No Tobacco 12/08/2014 Tobacco Use Within Last Twelve Months No 07/11/2018 Smoking Status Never (less than 100 in l Past Medical History: Active Atrial fibrillation (86657359) Hyperlipidemia (89036427) Hypertension (67478905) Family History: Non contributory Procedure history: Appendectomy; (05114). cataract surgery. Cholecystectomy; (91887). eye surgery. foot surgery right. hand surgery. hemorrhoidectomy. hysterectomy- total. pacemaker placement. tonsillectomy. skin cancer left arm removed. tumor on neck - removed.. Physical Examination VS/Measurements Vitals Signs (last 24 hrs) Last Charted Minimum Maximum Temp 98.1 (OCT 10:) 98.1 (OCT 10:) 98.3 (OCT 09 20:46) Apical HR 60 (OCT 10 08:53) 60 (OCT 10 08:53) 68 (OCT 09 22:54) Mon HR 62 (OCT 10:) 60 (OCT 10 04:00) 78 (OCT 09 20:46) Resp Rate 16 (OCT 10:) 16 (OCT 09 22:45) 17 (OCT 09:46) SBP 102 (OCT 10:) 95 (OCT 10 00:42) H 147 (OCT 09:46) DBP 65 (OCT 10:) L 53 (OCT 10 00:42) 80 (OCT 09 20:46) MAP 76 (OCT 10:) 68 (OCT 10 04:00) 109 (OCT 09 22:45) SpO2 98 (OCT 10:) 95 (OCT 09 22:45) 99 (OCT 10 04:00) General: Alert and oriented. Eye: Pupils are equal, round and reactive to light. HENT: Normocephalic. Neck: Supple, No carotid bruit, No jugular venous distention. Respiratory: Lungs are clear to auscultation, Respirations are non-labored, Breath sounds are equal. Cardiovascular: Normal rate, Regular rhythm, No murmur, No gallop, Good pulses equal in all extremities. Gastrointestinal: Soft, Non-tender, Non-distended, Normal bowel sounds. Musculoskeletal: Normal range of motion, Normal strength. Integumentary: Warm, Dry, [place]. Neurologic: Alert, Oriented. Psychiatric: Cooperative. Review / Management OCT 10 02: 141 106 12 / 87 3.9 32 0.70 \ OCT 10 02:57 \ L 10.6 / 7.3 198 / L 33.1 \ Cardiac Markers (Current Encounter/Past 24 Hours) No Cardiac Marker Results Found (Past 24 Hours) Blood Gases (Current Encounter/Past 24 Hours) No Blood Gas Results Found (Past 24 Hours) No Radiology Results Found Results review: Labs (Last four charted values) WBC 7.3 [...] Troponin <0.015 (OCT 10) <0.015 (OCT 09) . Impression and Plan IMPRESSION: * Recurrent chest pain Negative troponin x 3 * Paroxysmal atrial fibrillation On Warfarin and sotalol * COPD Chronic dyspnea * HTN * HLD PLAN; Chest pain that is recurrent in the setting of other risk factors thought to be best treated with further cardiac risk stratification by Lexiscan MPI in am Continue current treatment regimen for paroxysmal atrial fibrillation Further recommendations pending stress results documented in this encounter Plan of Treatment Upcoming Encounters Date Type Department Care Team (Late st Contact Info) Description 09/07/2025 10:45 AM EDT Office Visit [facility] Electrophysiology [address] [place] [address] [address] [place] [address] Adrienne Dunn MD [address] [place] [address] [address] [place] [address] documented as of this encounter Visit Diagnoses Not on filedocumented in this encounter Care Teams Medical [employer] Officer Relationship Specialty Start Date End Date Niranjan Mccarty MD [address] [place] [id number] PCP - General Adolescent Medicine 10/15/23 documented as of this encounter
--- OUTSIDE RECORDS SUMMARY | 2025-04-27 09:51 | XMS_ITS | Encounter Summary ---
Author Organization [employer] Address [address] [place] [address] Care Team Providers Care Boiler Setter Name Role Phone Niranjan Mccarty MD Primary Care Provider [phone] Encounter Details Date Type Department Care Team (Late st Contact Info) Description 08/23/2021 Transcribed Document [facility] [place] [address] [place] [address] ProviderAkash MD [address] [place] [address] Social History Tobacco Use Types Packs/Day Years Used Date Smoking Tobacco: Never Assessed Comments Unknown Sex and Gender Information Value Date Recorded Sex Assigned at Not on file Legal Sex Female 1:32 PM CDT Gender Identity Not on file Sexual Orientation Not on file documented as of this encounter Miscellaneous Notes * Cerner Conversion Note - Akash Vega MD - 08/23/2021 8:36 PM CDT [facility] [place] [address] TRAN PEGUERO :1935 Visit Time:08/23/2021 Your Visit Summary Your Care Team Primary Provider: JAYCEE FREEMAN PA-C Secondary Provider: Your Diagnosis COPD exacerbation Weakness Medical Information You may obtain a copy of your Emergency Department visit from Medical Records by calling the hospital phone number listed above and asking to be directed to the Medical Records Department. If you had special tests, such as EKG???s or X-rays, the interpretation of your tests given to you by the Emergency Department Physician is a preliminary report. Some fractures and illnesses fail to show up on preliminary tests. These will be reviewed again and we will call you if there are any new suggestions. If your symptoms continue notify your physician. After you leave, you should follow the instructions provided. What to do next Follow-Up Appointments Follow Up with Follow up with primary care provider When Within 5 to 7 days Comments Take medications as directed, follow with PCP, return to emergency Department with new or worsening symptoms Follow Up with NIRANJAN MORRIS When Within 2 to 3 days Where: [address] [place] [address]- [place] (1) Allergies Advicor Radha Baycol Biaxin Claritin Percodan Vioxx Vitamin K aspirin-oxyCODONE azithromycin cefuroxime cephalexin ciprofloxacin clarithromycin codeine cortisone erythromycin fexofenadine iodinated radiocontrast dyes (hives, lockjaw) loratadine penicillins phytonadione rofecoxib sulfADIAZINE tetracaine Immunizations This Visit No Immunizations Found Medications What How Much When Instructions Next Dose doxycycline (doxycycline monohydrate 100 mg oral tablet) 1 Tablet(s) Oral Two Times A Day Duration: 10 Day(s) Pickup at [facility] methylPREDNISolone (Medrol Dosepak 4 mg oral tablet) 1 Packet(s) Oral Every Day Duration: 6 Day(s) as directed on package labeling Pickup at [facility] ALPRAZolam (Xanax 0.5 mg oral tablet) 1 Tablet(s) Oral Two Times A Day carBAMazepine (TEGretol) 200 Milligram(s) Oral At Bedtime digoxin 125 Microgram(s) Oral Every Day pantoprazole 40 Milligram(s) Oral Every Day potassium chloride (potassium chloride 20 mEq/ 15 mL oral liquid) 15 Milliliter(s) Oral Every Day as needed for Other (See Comment) With torsemide sotalol 160 Milligram(s) Oral Two Times A Day torsemide (torsemide 20 mg oral tablet) 1 Tablet(s) Oral Every Day as needed for Edema traMADol 50 Milligram(s) Oral Every 12 hours as needed for as needed for pain umeclidinium-vilanterol (Anoro Ellipta 62.5 mcg-25 mcg/ inh inhalation powder) 1 Puff(s) Inhalation Every Day warfarin See instructions 3.75 Oral every FRIDAY warfarin (warfarin 7.5 mg oral tablet) Oral Every Day except sundays Pharmacy Information [facility]: [address] [address] [place] [id number] [phone] The home medications listed are only as accurate as the information you provided. Please continue taking all of your medications prescribed by your Primary Care Provider unless specifically told to change or discontinue the medication. Please direct any questions regarding your home medications to your Primary Care Provider. Take your medications faithfully. Do NOT skip [...] Please dispose of unused and medications per pharmacy guidance. Test Results Laboratory or Other Results This Visit (last charted value for your 08/23/2021 visit) Hematology 08/23/2021 2:36 PM WBC: 8.5 K/uL -- Normal range between ( 4.5 and 10.5 ) RBC: 3.82 Million/uL -- Normal range between ( 3.93 and 5.22 ) Hct: 36.6 % -- Normal range between ( 34.1 and 44.9 ) Hgb: 11.5 g/dL -- Normal range between ( 11.2 and 15.7 ) Platelet Count: 221 K/uL -- Normal range between ( 163 and 369 ) MCH: 30.1 pg -- Normal range between ( 25.6 and 32.2 ) MCHC: 31.4 Gram/dL -- Normal range between ( 31.5 and 35.7 ) MCV: 95.8 fL -- Normal range between ( 79.0 and 94.8 ) Slide Review: No Eos %: 3.3 % -- Normal range between ( 0.0 and 7.0 ) [place] #: 0.50 K/uL -- Normal range between ( 0.16 and 1.00 ) Eos #: 0.28 -- Normal range between ( 0.00 and 7.00 ) [place] %: 5.9 % -- Normal range between ( 3.5 and 11.1 ) Baso %: 0.2 % -- Normal range between ( 0.0 and 2.0 ) Baso #: 0.02 -- Normal range between ( 0.00 and 2.00 ) RDW: 12.2 % -- Normal range between ( 11.7 and 14.9 ) Neut %: 75.5 % -- Normal range between ( 34.0 and 71.0 ) Neut #: 6.38 K/uL -- Normal range between ( 1.60 and 7.00 ) Lymph %: 15.1 % -- Normal range between ( 19.3 and 53.1 ) Lymph #: 1.28 K/uL -- Normal range between ( 1.00 and 3.50 ) MPV: 10.1 fL -- Normal range between ( 9.4 and 12.4 ) Urinalysis 08/23/2021 2:36 PM Ur RBC: 5-10 /HPF Urine Nitrite: Negative Urine Leukocyte Esterase: Negative Urine Appearance: Clear Urine Glucose Dipstick: Negative Urine Blood Dipstick: Small Urine Urobilinogen Dipstick: 0.2 EU/dL Urine Protein Dipstick: Negative Urine Color: Yellow Ur WBC: 0-2 /HPF Urine Ketones Dipstick: Negative Urine pH Dipstick: *8.0 -- Normal range between ( 6.0 and 8.0 ) Urine Bilirubin Dipstick: Negative Urine Specific Scurry: 1.007 -- Normal range between ( 1.005 and 1.030 ) Urine Type.: U CleanCatch Urine Culture if Indicated: Not Indicated General Chemistry 08/23/2021 2:36 PM Creatinine Level: 0.80 mg/dL -- Normal range between ( 0.55 and 1.02 ) Sodium Level: 137 mmol/L -- Normal range between ( 136 and 146 ) Potassium Level: 3.8 mmol/L -- Normal range between ( 3.5 and 5.1 ) Chloride Level: 101 mmol/L -- Normal range between ( 102 and 112 ) Carbon Dioxide Level: 31 mmol/L -- Normal range between ( 21 and 32 ) Anion Gap: 9 -- Normal range between ( 9 and 20 ) Bilirubin Total: 0.5 mg/dL -- Normal range between ( 0.2 and 1.2 ) A/G Ratio: 1.0 -- Normal range between ( 1.1 and 2.5 ) ALT: 19 Units/Liter -- Normal range between ( 13 and 56 ) AST: 21 Units/Liter -- Normal range between ( 5 and 37 ) Globulin: 3.8 Gram/dL -- Normal range between ( 1.5 and 4.5 ) Alk Phos: 87 Units/Liter -- Normal range between ( 27 and 136 ) Bun/Creatinine: 16.2 -- Normal range between ( 8.0 and 20.0 ) Calcium Level: 9.3 mg/dL -- Normal range between ( 8.4 and 10.1 ) eGFR : >60 mL/min/1.73m2 eGFR NonAfrican: >60 mL/min/1.73m2 Glucose Level: 113 mg/dL -- Normal range between ( 74 and 106 ) Blood Urea Nitrogen: 13 mg/dL -- Normal range between ( 7 and 22 ) Lactic Acid Level: 1.0 mmol/L -- Normal range between ( 0.4 and 2.0 ) Protein Total: 7.5 Gram/dL -- Normal range between ( 6.4 and 8.2 ) Albumin Level: 3.7 Gram/dL -- Normal range between ( 3.4 and 5.0 ) Lipase Level: 157 Units/Liter -- Normal range between ( 73 and 393 ) Cardiac Specific Markers 08/23/2021 2:36 PM Troponin I Ultra: <0.015 ng/mL -- Normal range between ( 0.015 and 0.045 ) ProBNP: 779 pg/mL -- Normal range between ( 0 and 450 ) Coagulation 08/23/2021 4:20 PM INR: 1.5 -- Normal range between ( 0.9 and 1.2 ) PTT: 26.5 Second(s) -- Normal range between ( 22.0 and 33.0 ) PT: 16.0 Second(s) -- Normal range between ( 9.2 and 12.0 ) Diagnostic Radiology 08/23/2021 2:10 PM CR Chest 1 Vw Portable: CR Chest 1 Vw Portable Education Materials Chronic Obstructive Pulmonary Disease Exacerbation Chronic obstructive pulmonary disease (COPD) is a long-term (chronic) condition that affects the lungs. COPD is a general term that can be used to describe many different lung problems that cause lung swelling (inflammation) and limit airflow, including chronic bronchitis and emphysema. COPD exacerbations are episodes when breathing symptoms become much worse and require extra treatment. COPD exacerbations are usually caused by infections. Without treatment, COPD exacerbations can be severe and even life threatening. Frequent COPD exacerbations can cause further damage to the lungs. What are the causes? This condition may be caused by: ??? Respiratory infections, including viral and bacterial infections. ??? Exposure to smoke. ??? Exposure to air pollution, chemical fumes, or dust. ??? Things that give you an allergic reaction (allergens). ??? Not taking your usual COPD medicines as directed. ??? Underlying medical problems, such as congestive heart failure or infections not involving the lungs. In many cases, the cause (trigger) of this condition is not known. What increases the risk? The following factors may make you more likely to develop this condition: ??? Smoking cigarettes. ??? Old age. ??? Frequent prior COPD exacerbations. What are the signs or symptoms? Symptoms of this condition include: ??? Increased coughing. ??? Increased production of mucus from your lungs (sputum). ??? Increased wheezing. ??? Increased shortness of breath. ??? Rapid or labored breathing. ??? Chest tightness. ??? Less energy than usual. ??? Sleep disruption from symptoms. ??? Confusion or increased sleepiness. Often these symptoms happen or get worse even with the use of medicines. How is this diagnosed? This condition is diagnosed based on: ??? Your medical history. ??? A physical exam. You may also have tests, including: ??? A chest X-ray. ??? Blood tests. ??? Lung (pulmonary) function tests. How is this treated? Treatment for this condition depends on the severity and cause of the symptoms. You may need to be admitted to a hospital for treatment. Some of the treatments commonly used to treat COPD exacerbations are: ??? Antibiotic medicines. These may be used for severe exacerbations caused by a lung infection, such as pneumonia. ??? Bronchodilators. These are inhaled medicines that expand the air passages and allow increased airflow. ??? Steroid medicines. These act to reduce inflammation in the airways. They may be given with an inhaler, taken by mouth, or given through an IV tube inserted into one of your veins. ??? Supplemental oxygen therapy. ??? Airway clearing techniques, such as noninvasive ventilation (NIV) and positive expiratory pressure (PEP). These provide respiratory support through a mask or other noninvasive device. An example of this would be using a continuous positive airway pressure (CPAP) machine to improve delivery of oxygen into your lungs. Follow these instructions at home: Medicines ??? Take marn-jvs-jiazpdd and prescription medicines only as told by your health care provider. It is important to use correct technique with inhaled medicines. ??? If you were prescribed an antibiotic medicine or oral steroid, take it as told by your health care provider. Do not stop taking the medicine even if you start to feel better. Lifestyle ??? Eat a healthy diet. ??? Exercise regularly. ??? Get plenty of sleep. ??? Avoid exposure to all substances that irritate the airway, especially to tobacco smoke. ??? Wash your hands often with soap and water to reduce the risk of infection. If soap and water are not available, use hand wool sorter. ??? During flu season, avoid enclosed spaces that are crowded with people. General instructions ??? Drink enough fluid to keep your urine clear or pale yellow (unless you have a medical condition that requires fluid restriction). ??? Use a cool mist vaporizer. This humidifies the air and makes it easier for you to clear your chest when you cough. ??? If you have a home nebulizer and oxygen, continue to use them as told by your health care provider. ??? Keep all follow-up visits as told by your health care provider. This is important. How is this prevented? Stay up-to-date on pneumococcal and influenza (flu) vaccines. A flu shot is recommended every year to help prevent exacerbations. ??? Do not use any products that contain nicotine or tobacco, such as cigarettes and e-cigarettes. Quitting smoking is very important in preventing COPD from getting worse and in preventing exacerbations from happening as often. If you need help quitting, ask your health care provider. ??? Follow all instructions for pulmonary rehabilitation after a recent exacerbation. This can help prevent future exacerbations. ??? Work with your health care provider to develop and follow an action plan. This tells you what steps to take when you experience certain symptoms. Contact a health care provider if: ??? You have a worsening of your regular COPD symptoms. Get help right away if: ??? You have worsening shortness of breath, even when resting. ??? You have trouble talking. ??? You have severe chest pain. ??? You cough up blood. ??? You have a fever. ??? You have weakness, vomit repeatedly, or faint. ??? You feel confused. ??? You are not able to sleep because of your symptoms. ??? You have trouble doing daily activities. Summary ??? COPD exacerbations are episodes when breathing symptoms become much worse and require extra treatment above your normal treatment. ??? Exacerbations can be severe and even life threatening. Frequent COPD exacerbations can cause further damage to your lungs. ??? COPD exacerbations are usually triggered by infections such as the flu, colds, and even pneumonia. ??? Treatment for this condition depends on the severity and cause of the symptoms. You may need to be admitted to a hospital for treatment. ??? Quitting smoking is very important to prevent COPD from getting worse and to prevent exacerbations from happening as often. This information is not intended to replace advice given to you by your health care provider. Make sure you discuss any questions you have with your health care provider. Document Revised: 10/16/2018 Document Reviewed: 12/08/2017 Elsevier Patient Education ?? 2020 [employer]vier Inc. Emergency Awareness and Preventative Care STROKE is [...] Assistance with quitting is available by contacting 8-412-WNNRNOW. This is a free resource providing counseling, support, and referral. Or you may contact your personal physician. [place] Suicide Prevention Lifeline: The National Suicide Prevention [...] CPR? There are two easy steps: Call 9--1 if you see a teen or adult [...] and how to prevent infections, visit www.cdc.gov/sepsis. The examination and treatment you have received in the Emergency Department has been done to provide an appropriate evaluation and stabilizing treatment on an emergency basis only. Given the limited resources, it is not meant to be a substitute for complete medical care. The follow-up doctor you named will receive a copy of your records and all test reports. IT IS IMPORTANT THAT YOU SCHEDULE A FOLLOW-UP APPOINTMENT AND ARE RE-EVALUATED. You should report any new complaints, symptoms, or remaining problems at that time. IT IS IMPOSSIBLE FOR THE EMERGENCY DEPARTMENT TO RECOGNIZE AND TREAT ALL ELEMENTS OF INJURY OR ILLNESS IN A SINGLE VISIT. If you have been referred to a specialist physician, it means that we believe you may have a condition that requires the expertise of a specialist. These physicians work in partnership with the hospital and have agreed to see referred patients in their office for further evaluation. KEEP IN MIND THAT THE SPECIALIST HAS HIS/HER OWN OFFICE POLICIES WHICH MAY REQUIRE PROPER INSURANCE OR PAYMENT UP FRONT BEFORE THE SPECIALIST WILL SEE YOU. It is your responsibility to call the specialist physician to make an appointment. We do not have the ability to refer patients to specialists/physicians that work with specific insurance companies. Please be advised that all financial charges or billing practices are determined by that practice, not the hospital. If your insurance company requires that you see a specialist from their approved list, it is your responsibility to contact your insurance company to make those arrangements. It is also your responsibility to follow any other requirements of your insurance company necessary to obtain coverage for claims submitted. We will bill your insurance; however, you are responsible today for any co-pay amounts. You will receive a separate bill for any services you may have received including: emergency, radiology, or pathology physicians. Patient Name:WILDTONEDAREN MENDOZA I have received this information and was given the opportunity to ask questions. Patient/Floor Associate Name: Patient/Floor Associate Signature: Relationship to Patient: Clinician/Hospital Floor Associate Signature: Please Provide a Telephone Number Where You Can Be Reached: Is it Permissible To Leave a Message? Date: documented in this encounter Plan of Treatment Upcoming Encounters Date Type Department Care Team (Late st Contact Info) Description 09/07/2025 10:45 AM EDT Office Visit [facility] Electrophysiology [address] [place] [address] [address] [place] [address] Adrienne Dunn MD [address] [place] [address] [address] [place] [address] documented as of this encounter Visit Diagnoses Not on filedocumented in this encounter Care Teams Boiler Setter Relationship Specialty Start Date End Date Niranjan Mccarty MD [address] [place] [address] PCP - General Adolescent Medicine 10/15/23 documented as of this encounter
--- OUTSIDE RECORDS SUMMARY | 2025-04-27 09:51 | XMS_ITS | Encounter Summary ---
Author Organization [employer] Address [address] [place] [address] Care Team Providers Care Transit Bus Driver Name Role Phone Niranjan Mccarty MD Primary Care Provider [phone] Encounter Details Date Type Department Care Team (Late st Contact Info) Description 08/23/2021 Transcribed Document [facility] [place] [address] ProviderAkash MD [address] [place] [address] Social History Tobacco Use Types Packs/Day [...] Akash ProviderMD - 08/23/2021 1:33 PM CDT Scott Suicide Severity Rating Scale (C-SSRS) Entered On: 08/23/2021 13:46 EDT Performed On: 08/23/2021 13:43 EDT by GEORGINA EVERETT RN Scott Suicide Severity Rating Scale (C-SSRS) CSSRS Past Month Wish to be : No CSSRS Past Month Suicidal Thoughts : No CSSRS Lifetime Suicide Behavior : No Suicide Severity Rating Score : 0 Suicide Severity Rating : No Additional Care Required at this time GEORGINA EVERETT RN - 08/23/2021 13:43 EDT documented in this encounter Plan of Treatment Upcoming Encounters Date Type Department Care Team (Late st Contact Info) Description 09/07/2025 10:45 AM EDT Office Visit [facility] Electrophysiology [address] [facility] [address] [place] [address] Adrienne Dunn MD [address] [facility] [facility] [address] [place], [place] [id number] documented as of this encounter Visit Diagnoses Not on filedocumented in this encounter Care Teams Transit Bus Driver Relationship Specialty Start Date End Date Niranjan Mccarty MD [address] [place] [address] PCP - General Adolescent Medicine 10/15/23 documented as of this encounter
--- OUTSIDE RECORDS SUMMARY | 2025-04-27 09:51 | XMS_ITS | Encounter Summary ---
Author Organization [employer] Address [address] [place] [address] Care Team Providers Care Graphic Design Professor Name Role Phone Niranjan Mccarty MD Primary Care Provider [phone] Encounter Details Date Type Department Care Team (Late st Contact Info) Description 08/23/2021 Transcribed Document [facility] [place] Family Medicine [address] [place] [address] ProviderAkash MD [address] [place] [address] Social History Tobacco Use Types Packs/Day Years Used Date Smoking Tobacco: Never Assessed Comments Unknown Sex and Gender Information Value Date Recorded Sex Assigned at Not on file Legal Sex Female 1:32 PM CDT Gender Identity Not on file Sexual Orientation Not on file documented as of this encounter Miscellaneous Notes * Cerner Conversion Note - Akash Vega MD - 08/23/2021 10:15 PM CDT ED Discharge Entered On: 08/23/2021 22:16 EDT Performed On: 08/23/2021 22:15 EDT by Lucy Lyons RN Discharge Process Patient Disposition : Discharge Personal Belongings With Patient : Yes Patient Education Completed : Yes Teaching Evaluation : Verbalizes understanding IV Discontinued : Yes Nursing Documentation Completed : Yes Lucy Lyons RN - 08/23/2021 22:15 EDT ED Discharge Discharge To : Home with ambulatory/outpatient follow-up Name of Receiving Facility/Provider : pcp Mode Of Departure : Wheelchair Discharge Instructions Reviewed With, Opportunity For Questions Given : Patient Prescriptions Given to Patient : Electronically sent Number of Prescriptions Given : 2 Lucy Lyons RN - 08/23/2021 22:15 EDT Electronically signed by [facility] Conversion Program Director [employer] Cerner at 03/07/2023 1:36 PM CDT documented in this encounter Plan of Treatment Upcoming Encounters Date Type Department Care Team (Late st Contact Info) Description 09/07/2025 10:45 AM EDT Office Visit [facility] Electrophysiology [address] [facility] [address] [place] [address] [place] [address] [place] [address] [address] [place], [place] [id number] documented as of this encounter Visit Diagnoses Not on filedocumented in this encounter Care Teams Graphic Design Professor Relationship Specialty Start Date End Date Niranjan Mccarty MD [address] [place] [address] PCP - General Adolescent Medicine 10/15/23 documented as of this encounter
--- OUTSIDE RECORDS SUMMARY | 2025-04-27 09:51 | XMS_ITS | Encounter Summary ---
Author Organization [employer] Address [address] [place] [address] Care Team Providers Care Billing Clerk Name Role Phone Niranjan Mccarty MD Primary Care Provider [phone] Encounter Details Date Type Department Care Team (Late st Contact Info) Description 08/23/2021 Transcribed Document [facility] [place] Family Medicine [facility] [place] [address] ProviderAkash MD [address] [place] [address] Social History Tobacco Use Types Packs/Day Years Used Date Smoking Tobacco: Never Assessed Comments Unknown Sex and Gender Information Value Date Recorded Sex Assigned at Not on file Legal Sex Female 1:32 PM CDT Gender Identity Not on file Sexual Orientation Not on file documented as of this encounter Miscellaneous Notes * Cerner Conversion Note - Akash Vega MD - 08/23/2021 2:05 PM CDT Patient: TRAN PEGUERO Age: 85 years Sex: Female : 1935 Associated Diagnoses: COPD exacerbation Author: JAYCEE FREEMAN PA-C Basic Information Additional information: Chief Complaint from Nursing Triage Note : Chief Complaint 08/23/2021 13:34 EDT Chief Complaint pt via EMS from home, c/o new onset chest tightness and increasing weakness, pt had a pacemaker placed 5wks ago, states the area is sore, something doesnt feel right , + blood thinners, hx COPD. . History of Present Illness The patient presents with weakness and Patient is 85-year-old female with a history of COPD on 2 L O2 at all times A. fib on warfarin CHF hypertension hyperlipidemia sick sinus syndrome with pacemaker she presents the emergency department with complaints of approximately 1 week of chest tightness cough and increase in weakness, patient states when whenever she is up walking around she gets short of air and feels like there is something not right in her chest, she says that it feels tight. She also states that she has a soreness in her left chest, patient recently had pacemaker placed, 5 weeks ago. Patient denies fever chills headache dizziness blurred vision congestion abdominal pain nausea vomiting dysuria hematuria numbness tingling decreased range of motion lower extremity edema rash.. Review of Systems Constitutional symptoms Additional review of systems information: All other systems reviewed and otherwise negative. Health Status Allergies: Allergic Reactions (Selected) Severity Not Documented Advicor- No reactions were documented. Radha- No reactions were documented. Aspirin-oxyCODONE- No reactions were documented. Azithromycin- No reactions were documented. Baycol- No reactions were documented. Biaxin- No reactions were documented. Cefuroxime- No reactions were documented. Cephalexin- No reactions were documented. Ciprofloxacin- No reactions were documented. Clarithromycin- No reactions were documented. Claritin- No reactions were documented. Codeine- No reactions were documented. Cortisone- No reactions were documented. Erythromycin- No reactions were documented. Fexofenadine- No reactions were documented. Iodinated radiocontrast dyes- Hives, lockjaw. Loratadine- No reactions were documented. Penicillins- No reactions were documented. Percodan- No reactions were documented. Phytonadione- No reactions were documented. Rofecoxib- No reactions were documented. SulfADIAZINE- No reactions were documented. Tetracaine- No reactions were documented. Vioxx- No reactions were documented. Vitamin K- No reactions were documented.. Medications: (Selected) Documented Medications Documented Anoro Ellipta 62.5 mcg-25 mcg/inh inhalation powder: 1 Puff, Inhalation, Daily, 0 Refill(s) TEGretol: 200 mg, Oral, At Bedtime, 0 Refill(s) Xanax 0.5 mg oral tablet: 1 Tab, Oral, BID, 0 Refill(s) digoxin: 125 mcg, Oral, Daily, 0 Refill(s) pantoprazole: 40 mg, Oral, Daily, 0 Refill(s) potassium chloride 20 mEq/15 mL oral liquid: 15 mL, Oral, Daily, With torsemide, PRN: Other (See Comment), 900 mL, 0 Refill(s) sotalol: 160 mg, Oral, BID, 0 Refill(s) torsemide 20 mg oral tablet: 1 Tab, Oral, Daily, PRN: Edema, 0 Refill(s) traMADol: 50 mg, Oral, Q12H, PRN: as needed for pain, 0 Refill(s) warfarin 7.5 mg oral tablet: Tab, Oral, Daily, except sundays, 0 Refill(s) warfarin: See Instructions, 3.75 Oral every FRIDAY, 0 Refill(s) . Immunizations: Per nurse's notes. Past Medical/ Family/ Social History Medical history Reviewed as documented in chart. Surgical history: Appendectomy; (67949). cataract surgery. Cholecystectomy; (96262). eye surgery. foot surgery right. hand surgery. hemorrhoidectomy. hysterectomy- total. pacemaker placement. tonsillectomy. skin cancer left arm removed. tumor on neck - removed.. colonoscopy. pacemaker generator change., Reviewed as documented in chart. Family history: No family history items have been selected or recorded., Reviewed as documented in chart. Social history: Social & Psychosocial Habits Alcohol 12/08/2014 Alcohol [...] Status Never (less than 100 in l . Problem list: Active Problems (15) Anxiety Arthritis At risk for sleep apnea Atrial fibrillation Atrial fibrillation Chronic CHF Chronic obstructive pulmonary disease (COPD) Chronic respiratory failure Diverticulosis Fibromyalgia H/O hyperlipidemia H/O sick sinus syndrome Hyperlipidemia Hypertension Leg swelling , per nurse's notes. Physical Examination Vital Signs Vital Signs/Vital Measures 08/23/2021 13:43 EDT Oxygen Therapy Mode Nasal cannula Oxygen Flow Rate 2 Liter/Min 08/23/2021 13:34 EDT Systolic Blood Pressure 173 mmHg HI Diastolic Blood Pressure 78 mmHg Temperature Source Oral Temperature Mode Fahrenheit Temperature, Fahrenheit 98.0 Deg F Clinical Temperature, C 36.7 Deg C Peripheral Pulse Rate 75 bpm Respiratory Rate 18 Breaths/Min Oxygen Saturation 96 % Oxygen Therapy Mode Nasal cannula Oxygen Flow Rate 2 Liter/Min . Measurements 08/23/2021 13:34 EDT Height Source Stated Height Entry Format [place] Height/Length, ALBANIAN (ft) 5 ft Height/Length ALBANIAN 7 Inch CLINICALHEIGHT 170.18 cm [place] Body Weight 61.16 kg Weight Source, ED Critical estimated dosing weight Weight Entry Format [place] Weight Ukrainian lb 140 lb CLINICALWEIGHT 63.64 kg Body Surface Area (BSA) 1.74 m2 Body Mass Index 22 kg/m2 . Oxygen Saturation 08/23/2021 13:34 EDT Oxygen Saturation 96 % . General: Alert, no acute distress. Skin: Warm, dry, pink, intact. Head: Normocephalic, atraumatic. Neck: Supple, trachea midline. Eye: Normal conjunctiva. Ears, nose, mouth and throat: Oral mucosa moist. Cardiovascular: Regular rate and rhythm, Normal peripheral perfusion. Respiratory: Lungs are clear to auscultation, respirations are non-labored. Chest wall: No deformity, Patient present in left upper chest, no surrounding erythema or swelling not tender to palpate this area however patient does express tenderness to palpate left anterior chest wall no swelling erythema crepitus palpable fractures. Back: Nontender, Normal range of motion. Musculoskeletal: Normal ROM, normal strength. Gastrointestinal: Soft, Nontender, Non distended. Neurological: Alert and oriented to person, place, time, and situation, No focal neurological deficit observed, normal sensory observed, normal motor observed, normal speech observed, normal coordination observed. Psychiatric: Cooperative, appropriate mood & affect. Medical Decision Making Differential Diagnosis: Weakness, anemia, hypotension, dehydration, hypoglycemia, viral syndrome, pneumonia, CHF COPD exacerbation. Documents reviewed: Emergency department nurses' notes. Orders Include Previous Orders (Selected) Inpatient Orders Ordered Aerosol Treatment (RT): Cardiac Monitoring: ED Fall Risk Documented: Supplemental Oxygen Titration: Ordered (Exam Completed) CR Chest 1 Vw Portable: Cancelled (Canceled) CT Chest WO: EC Echo Complete: Completed .Automated Differential: .Urinalysis Microscopic: Broset Violence Assessment: CBC w/ Auto Diff: CMP Comprehensive Metabolic Panel: DuoNeb 0.5 mg-2.5 mg/3 mL inhalation solution: 3 mL, Nebulized Inhalation, 1-Time ED Adult Fall Risk Assessment: ED Adult Triage: ED C-SSRS: ED Clinical Reconciliation: ED produce production team member: EKG: Lactic Acid Level with Reflex if Indicated: Lipase Level: Normal Saline Flush: 10 mL, IV Push, See Comment PT/INR Prothrombin Time: PTT: ProBNP: Saline Lock Insert: Troponin I Ultra: Urinalysis UA Rflx Microscopic Cult if Ind: iopamidol: 75 mL, IV Push, ADHOC Deleted CTA Chest PE Protocol: . Electrocardiogram: Paced rhythm reviewed by EDMD. Results review: Lab results : Lab Results 08/23/2021 16:20 EDT PT 16.0 Second(s) HI INR 1.5 HI PTT 26.5 Second(s) 08/23/2021 14:36 EDT Sodium Level 137 mmol/L Potassium Level 3.8 mmol/L Chloride Level 101 mmol/L LOW Carbon Dioxide Level 31 mmol/L Anion Gap 9 Glucose Level 113 mg/dL HI Blood Urea Nitrogen 13 mg/dL Creatinine Level 0.80 mg/dL eGFR >60 mL/min/1.73m2 eGFR NonAfrican >60 mL/min/1.73m2 Bun/Creatinine 16.2 Calcium Level 9.3 mg/dL Protein Total 7.5 Gram/dL Albumin Level 3.7 Gram/dL Globulin 3.8 Gram/dL A/G Ratio 1.0 LOW Bilirubin Total 0.5 mg/dL Alk Phos 87 Units/Liter AST 21 Units/Liter ALT 19 Units/Liter Lipase Level 157 Units/Liter Lactic Acid Level 1.0 mmol/L Troponin I Ultra <0.015 ng/mL ProBNP 779 pg/mL HI WBC 8.5 K/uL RBC 3.82 Million/uL LOW Hgb 11.5 g/dL Hct 36.6 % MCV 95.8 fL HI MCH 30.1 pg MCHC 31.4 Gram/dL LOW Platelet Count 221 K/uL MPV 10.1 fL RDW 12.2 % Neut % 75.5 % HI Neut # 6.38 K/uL Lymph % 15.1 % LOW Lymph # 1.28 K/uL [place] % 5.9 % [place] # 0.50 K/uL Eos % 3.3 % Eos # 0.28 Baso % 0.2 % Baso # 0.02 Slide Review No Urine Type. U CleanCatch Urine Color Yellow Urine Appearance Clear Urine Specific Ferguson 1.007 Urine pH Dipstick *8.0 Urine Leukocyte Esterase Negative Urine Nitrite Negative Urine Protein Dipstick Negative Urine Glucose Dipstick Negative Urine Ketones Dipstick Negative Urine Urobilinogen Dipstick 0.2 EU/dL Urine Bilirubin Dipstick Negative Urine Blood Dipstick Small Ur RBC 5-10 /HPF Ur WBC 0-2 /HPF Urine Culture if Indicated Not Indicated . Radiology results: Radiology Results (Last 48 hours) [id number] -- 08/23/2021 13:33 CR Chest 1 Vw Portable (08/23/2021 14:10) Result: PORTABLE CHEST HISTORY: Shortness of air, chest tightness.COMPARISON: July 12, 2018.FINDINGS: There is a left-sided pacemaker. The heart is normal in size.There is ectasia of the aorta with calcified plaque identified. There isevidence of old calcified granulomatous disease. There is apical pleuralthickening bilaterally. There are basilar fibrotic changes. The lungsare otherwise clear. There is no pneumothorax. IMPRESSION: Chronic change without acute cardiopulmonary process.Images reviewed, interpreted, and dictated by Dr. Jeffrey Marie.Transcribed by Cassia Castañeda PA-C. . Notes: Patient vital signs remained stable while in the emergency department she is not tachypneic or short of air on exam, patient resting comfortably. Chest pain is reproducible with palpation of left chest wall. Chest x-ray shows chronic changes without acute process, lab work unremarkable. Patient given DuoNeb reports tightness has improved in her chest advised continue his nebulizer treatments at home return to the emergency department new or worsening symptoms patient given strict return precautions verbally expressed understanding and agreement with treatment plan. Impression and Plan Diagnosis COPD exacerbation - Discharge, Medical Plan Condition: Improved, Stable. Disposition: Discharged Admit/Transfer/Discharge: Discharge (Order): Start: 08/23/2021 20:16 EDT, Discharge to: Home . Prescriptions: Prescription [facility]: Medrol Dosepak 4 mg oral tablet (Prescribe): 1 Packet, Oral, Daily, for 6 Day(s), as directed on package labeling, 21 Tab, 0 Refill(s) doxycycline monohydrate 100 mg oral tablet (Prescribe): 1 Tab, Oral, BID, for 10 Day(s), 20 Tab, 0 Refill(s) . Patient was given the following educational materials: Chronic Obstructive Pulmonary Disease Exacerbation. Follow up with: NIRANJAN MORRIS Within 2 to 3 days; ; Follow up with primary care provider Within 5 to 7 days Take medications as directed, follow with PCP, return to emergency Department with new or worsening symptoms. Counseled: Patient, Regarding diagnosis, Regarding diagnostic results, Regarding treatment plan, Regarding prescription, Patient indicated understanding of instructions. documented in this encounter Plan of Treatment Upcoming Encounters Date Type Department Care Team (Late st Contact Info) Description 09/07/2025 10:45 AM EDT Office Visit [facility] Electrophysiology [address] [place] [address] [address] [place] [address] Adrienne Dunn MD [address] [place] [address] [address] [place], [place] [id number] documented as of this encounter Visit Diagnoses Not on filedocumented in this encounter Care Teams Billing Clerk Relationship Specialty Start Date End Date Niranjan Mccarty MD [address] [place] [address] PCP - General Adolescent Medicine 10/15/23 documented as of this encounter
--- OUTSIDE RECORDS SUMMARY | 2025-04-27 09:51 | XMS_ITS | Encounter Summary ---
Author Organization [employer] Address [address] [place] [address] Care Team Providers Care Length Control Tester Name Role Phone Niranjan Mccarty MD Primary Care Provider [phone] Encounter Details Date Type Department Care Team (Late st Contact Info) Description 08/23/2021 Transcribed Document [facility] [place] [facility] [place] [address] ProviderAkash MD [address] [place] [address] Social History Tobacco Use Types Packs/Day [...] ProviderMD - 08/23/2021 1:33 PM CDT ED Assessment Entered On: 08/23/2021 13:46 EDT Performed On: 08/23/2021 13:43 EDT by GEORGINA EVERETT DIRECT MAIL MANAGER Quick Look Assessment Level of Consciousness : Alert, Awake Affect/Behavior : Appropriate, Calm, Cooperative Orientation : Oriented x 4 Skin Color : Other: normal Skin Temperature : Warm Skin Description : Dry GEORGINA EVERETT RN - 08/23/2021 13:43 EDT ED General-Functional Assess Information Obtained From : Patient, Other: EMS Preferred Communication Mode : Verbal Communication Barrier : None Primary Language : Romanian Any Spiritual/Cultural Needs or Requests : No Currently in Unsafe Situation : No GEORGINA EVEERTT RN - 08/23/2021 13:43 EDT Social Habits Smoking Status : Never (less than 100 in lifetime; none in last 30 days) Smokeless Tobacco Status : Never Desires Tobacco Cessation Calc : 0 GEORGINA EVERETT RN - 08/23/2021 13:43 EDT Social History (As Of: 08/23/2021 13:46:12 EDT) Tobacco: Use in Last 12 Months: [...] No. (Last Updated: 12/08/2014 08:21:50 EST by OJSE TYSON, PAPITO) Drug Use Hx: No. Use in Last 12 Months: No. (Last Updated: 07/11/2018 20:18:12 EDT by BRAYAN LUNA RN) Nutrition/Health: Regular (Last Updated: 07/11/2018 20:18:12 EDT by BRAYAN LUNA RN) Home/Environment: Lives with Spouse. (Last Updated: 07/11/2018 20:18:12 EDT by BRAYAN LUNA RN) Cardiovascular ASMT, ED Cardiovascular Assessment WDL : WDL with exceptions (Comment: pt had a pacemaker put in 5wks ago, over the past week she has c/o increased weakness and chest tightness over the last 3 days, states she feels something is wrong, ems states pacemaker was working on their monitor [GEORGINA EVERETT RN - 08/23/2021 13:43 EDT] ) GEORGINA EVERETT RN - 08/23/2021 13:43 EDT Respiratory Respiratory Assessment WDL : WDL with exceptions (Comment: pt has hx COPD, states she never smoked, pt wears 2L o2 continously, states she checked her o2 at home and was down to 88% [GEORGINA EVERETT RN - 08/23/2021 13:43 EDT] ) GEORGINA EVERETT RN - 08/23/2021 13:43 EDT Oxygen Therapy Oxygen Therapy Mode : Nasal cannula Oxygen Flow Rate : 2 Liter/Min GEORGINA EVERETT RN - 08/23/2021 13:43 EDT Gastrointestinal ED Gastrointestinal Assessment WDL : WDL GEORGINA EVERETT RN - 08/23/2021 13:43 EDT Musculoskeletal Musculoskeletal Assessment WDL : WDL with exceptions (Comment: pt c/o an increase in weakness over the past week. [GEORGINA EVERETT RN - 08/23/2021 13:43 EDT] ) EGORGINA EVERETT RN - 08/23/2021 13:43 EDT Neurologic ASMT, ED Neurologic Assessment WDL : WDL GEORGINA EVERETT RN - 08/23/2021 13:43 EDT Pain Assessment Pain Assessment : Initial assessment Pain Scale Used : 0-10 Scale GEORGINA EVERETT RN - 08/23/2021 13:43 EDT Pain Scale Intensity : 4 GEORGINA EVERETT RN - 08/23/2021 13:43 EDT Image 4 - Images currently included in the form version of this document have not been included in the text rendition version of the form. documented in this encounter Plan of Treatment Upcoming Encounters Date Type Department Care Team (Late st Contact Info) Description 09/07/2025 10:45 AM EDT Office Visit [facility] Electrophysiology [address] [facility] [address] [place] [address] [place] [address] [place] [address] [address] [place] [address] documented as of this encounter Visit Diagnoses Not on filedocumented in this encounter Care Teams Length Control Tester Relationship Specialty Start Date End Date Niranjan Mccarty MD [address] [place] [address] PCP - General Adolescent Medicine 10/15/23 documented as of this encounter
--- OUTSIDE RECORDS SUMMARY | 2025-04-27 09:51 | XMS_ITS | Encounter Summary ---
Author Organization [employer] Address [address] [place] [address] Care Team Providers Care Global Compensation Manager Name Role Phone Niranjan Mccarty MD Primary Care Provider [phone] Encounter Details Date Type Department Care Team (Late st Contact Info) Description 06/13/2021 Transcribed Document [facility] [place] [address] [place] [address] ProviderAkash MD [address] [place] [address] Social History Tobacco Use Types Packs/Day Years Used Date Smoking Tobacco: Never Assessed Comments Unknown Sex and Gender Information Value Date Recorded Sex Assigned at Not on file Legal Sex Female 1:32 PM CDT Gender Identity Not on file Sexual Orientation Not on file documented as of this encounter Miscellaneous Notes * Cerner Conversion Note - Akash Vega MD - 06/13/2021 3:32 PM CDT [facility] [place] [address] [place] :1935 Visit Time:06/12/2021 Your [...] Dr. Dunn Appointment has been made Where: [facility] [address] [place] [id number]- Business (1) Medications What How Much When [...] these instructions at home: Medicines ??? Take rkxn-yxs-zjhfsgh and prescription medicines only as told by [...] and water are not available, use hand signal intelligence analyst. ? Change your dressing as told by [...] your chest for several days. ??? Take jbvn-pac-ctdhwih and prescription medicines only as told by [...] Reviewed: 10/04/2019 Elsevier Patient Education ?? 2020 [employer] Heart-Healthy Eating Plan Heart-healthy meal planning [...] Fats and oils Meat fat, or shortening. [place] butter, hydrogenated oils, palm oil, coconut oil, [...] Reviewed: 12/11/2018 [employer] Patient Education ?? 2020 Alerts. Emergency Awareness and Preventative Care STROKE is [...] Assistance with quitting is available by contacting 5-690-VWNY-NOW. This is a free resource providing counseling, [...] range between ( 0.0 and 7.0 ) [place] #: 0.48 K/uL -- Normal range between ( 0.16 and 1.00 ) [place] #: 0.16 x10(3)/uL -- Normal range between ( 0.00 and 0.80 ) [place] %: 8.0 % -- Normal range between [...] was given the opportunity to ask questions. Patient/Licensed Journeyman Electrician Name: Patient/Licensed Journeyman Electrician Signature: Relationship to Patient: Clinician/Hospital Licensed Journeyman Electrician Signature: Date: Electronically signed by Cecy, [facility] Conversion Licensed Tax Consultant Cerner at 03/07/2023 1:44 PM CDT documented in this encounter Plan of Treatment Upcoming Encounters Date Type Department Care Team (Late st Contact Info) Description 09/07/2025 10:45 AM EDT Office Visit [facility] Electrophysiology [address] [facility] [address] [place] [address] [place] [address] [place] [address] [address] [place], [place] [id number] documented as of this encounter Visit Diagnoses Not on filedocumented in this encounter Care Teams Global Compensation Manager Relationship Specialty Start Date End Date Niranjan Mccarty MD [address] [place] [address] PCP - General Adolescent Medicine 10/15/23 documented as of this encounter
--- OUTSIDE RECORDS SUMMARY | 2025-04-27 09:51 | XMS_ITS | Encounter Summary ---
Author Organization [employer] Address [address] [place] [address] Care Team Providers Care Sand Conditioner Name Role Phone Niranjan Mccarty MD Primary Care Provider + [phone] Encounter Details Date Type Department Care Team (Late st Contact Info) Description 06/13/2021 Transcribed Document [facility] [place] [address] [place] [address] ProviderAkash MD [address] [place] [address] [id number] Social History Tobacco Use Types Packs/Day Years Used Date Smoking Tobacco: Never Assessed Comments Unknown Sex and Gender Information Value Date Recorded Sex Assigned at Not on file Legal Sex Female 1:32 PM CDT Gender Identity Not on file Sexual Orientation Not on file documented as of this encounter Miscellaneous Notes * Cerner Conversion Note - Akash Vega MD - 06/13/2021 9:37 AM CDT Patient: TRAN PEGUERO Age: 85 years Sex: Female : 1935 Associated Diagnoses: None Author: SHANITA AMAYA MD-CAR Allergies (11) Active Reaction Advicor None Documented Radha None Documented azithromycin None Documented Baycol None Documented Biaxin None Documented cefuroxime None Documented Claritin None Documented iodinated radiocontrast dyes hives, lockjaw Percodan None Documented Vioxx None Documented Vitamin K None Documented [facility] Discharge Note - EP Primary Electronic Induction Hardener: PCP: Niranjan Chavira Consults: NONE History of Present Illness: Patient is an 85- year- old female with PMH of afib, A flutter, SSS, PPM (Medtronic), HTN, HLD, Osteoarthritis, CHF, and COPD. Her atrial fibrillation has been controlled with sotalol and digoxin. She is on Coumadin for anticoagulation. . Patient reports having frequent episodes of her [...] vomiting. It will be her third incision. She is atrially and ventricularly dependent. Her atrial lead threshold is on the higher side however will not replace her lead. She has a thin skin. Last time after the procedure she complained of the pain for a while. I offered her to wait for the return of Dr Dunn however she feels so miserable that she wants to proceed as soon as possible. Will get it the next week. Hold warfarin for 3 day prior to the procedure. She understands the risk and the benefits of the procedure. Patient arrived 06/12/2021 for generator change. Admitting Diagnosis: 1. ANASTASIYA of PPM Surgical History: History of Appendectomy History of Cataract Surgery History of Cholecystectomy History of Excision Of Bartholin's Gland Or Cyst History of Eye Surgery History of Foot Surgery Right History of Hand Surgery History of Hemorrhoidectomy History of Hysterectomy History of Pacemaker Placement ?? PPM Medtronic 01/24/09 History of Tonsillectomy Pertinent Labs/Results Blood Gases (Current Encounter/Past 24 Hours) No Blood Gas Results Found (Past 24 Hours) Labs (Last four charted values) WBC 6.0 (JUN 12) HB L 10.9 (JUN 12) HCT 34.9 (JUN 12) Plt 253 (JUN 12) Na 136 (JUN 12) K 3.8 (JUN 12) Cl L 100 (JUN 12) CO2 31 (JUN 12) BUN 13 (JUN 12) Cr 0.80 (JUN 12) Glu R 102 (JUN 12) Ca 9.2 (JUN 12) PT H 14.0 (JUN 12) INR H 1.3 (JUN 12) General: Alert and oriented. Eye: Pupils are equal, round and reactive to light. HENT: Normocephalic. Neck: Supple, Non-tender, No carotid bruit, No jugular venous distention. Respiratory: Lungs are clear to auscultation, Respirations are non-labored. Cardiovascular: No murmur, Good pulses equal in all extremities, Heart rate irregularly irregular. Jugular Veins: Not distended. Gastrointestinal: Soft, Non-tender, Non-distended, Normal bowel sounds. Musculoskeletal: Normal range of motion. Integumentary: Warm, Dry, [place]. PPM site left SC dressing dry and intact, no bleeding or hematoma at site. Neurologic: Alert, Oriented. Psychiatric: Cooperative, Appropriate mood & affect. Telemetry: AV Paced Procedures this admission: 06/12/2021 Successful Procedure(s) of: 1. DUAL CHAMBER SYSTEM REPLACEMENT - (MEDTRONIC) 2. Pocket revision 3. Sedation for 45 min managed by physician Discharge Diagnoses: 1. Successful generator change Discharge Medications: 1. ALPRAZolam 0.5 MG Oral Tablet; TAKE 1 TABLET IN THE MORNING AND 1 TABLET AT BEDTIME 2. Anoro Ellipta 62.5-25 MCG/INH Inhalation Aerosol Powder Breath Activated; USE ONE PUFF DAILY 3. Digoxin 125 MCG Oral Tablet; TAKE 0.5 TABLET Daily 4. Pantoprazole Sodium 40 MG Oral Tablet Delayed Release 5. Potassium Chloride 20 MEQ/15ML (10%) Oral Solution; TAKE 15 ML (20 MEQ) ONCE DAILY ON THE DAYS THAT YOU TAKE TORSEMIDE.Rfs rem 1 6. Sotalol HCl - 160 MG Oral Tablet; TAKE 1 TABLET TWICE DAILY 7. TEGretol 200 MG Oral Tablet; TAKE 1 TABLET Bedtime 8. Torsemide 20 MG Oral Tablet; TAKE 1 TABLET Daily PRN 9. traMADol HCl - 50 MG Oral Tablet; TAKE 1 TABLET 3 TIMES DAILY NEEDED 10. Tylenol Extra Strength 500 MG Oral Tablet; TAKE 1 TABLET EVERY 4 TO 6 HOURS NEEDED 11. Warfarin Sodium 7.5 MG Oral Tablet; TAKE 1 TABLET DAILY DIRECTED - DO NOT RESUME UNTIL AFTER YOUR FOLLOW UP APPOINTMNT AND WOUND CHECK Disposition: Patient sent home in stable condition with family support. Discharge Instructions: Cardiac Diet. Post PPM site instructions Activity as tolerated following post Pacemaker instructions Followup Appointments: PCP in 5 - 7 days. Primary Electronic Induction Hardener in [address] Dunn in 1 week for wound/device check and OK to resume Coumadin Patient has been instructed on and verbalized an understanding of the above discharge instructions. Plan has been discussed and is in agreement with Dr. Jose Luis Pryor, RN documenting for Dr. Amaya Electronically signed by [facility], [facility] Conversion Gas Appliance Installer Cerner at 03/07/2023 1:27 PM CDT documented in this encounter Plan of Treatment Upcoming Encounters Date Type Department Care Team (Late st Contact Info) Description 09/07/2025 10:45 AM EDT Office Visit [facility] Electrophysiology [address] [facility] [address] [place] [address] Adrienne Dunn MD [address] [facility] [address] [place], [place] [id number] documented as of this encounter Visit Diagnoses Not on filedocumented in this encounter Care Teams Sand Conditioner Relationship Specialty Start Date End Date Niranjan Mccarty MD [address] [place] [address] PCP - General Adolescent Medicine 10/15/23 documented as of this encounter
--- OUTSIDE RECORDS SUMMARY | 2025-04-27 09:51 | XMS_ITS | Encounter Summary ---
Author Organization [employer] Address [address] [place] [address] Care Team Providers Care Lumber Trimmer Name Role Phone Niranjan Mccarty MD Primary Care Provider [phone] Encounter Details Date Type Department Care Team (Late st Contact Info) Description 10/10/2019 Transcribed Document [facility] [place] [facility] [address] ProviderAkash MD [address] [place] [address] Social History Tobacco Use Types Packs/Day Years Used Date Smoking Tobacco: Never Assessed Comments Unknown Sex and Gender Information Value Date Recorded Sex Assigned at Not on file Legal Sex Female 1:32 PM CDT Gender Identity Not on file Sexual Orientation Not on file documented as of this encounter Miscellaneous Notes * Cerner Conversion Note - Akash ProviderMD - 10/10/2019 10:57 AM TRACK SUPERVISOR Height and Weight, Routine Entered On: 10/11/2019 4:17 EST Performed On: 10/10/2019 10:57 EST by MEKA MANSFIELD RN Height and Weight, Routine Routine Weight Source : Standing scale Routine Weight Entry Format : Orosi Routine Weight, Pounds : 141 lb Routine Weight, Ounces : 7 oz Routine Weight Calculation : 64.29 kg Height Source : Stated Height Entry Format : Orosi Height, Feet : 5 ft Height, Inches : 5 Inch Clinical Height : 165.1 cm Body Surface Area (BSA), Routine : 1.71 m2 Body Mass Index (BMI), Routine : 23.59 kg/m2 MEKA MANSFIELD RN - 10/11/2019 4:17 EST documented in this encounter Plan of Treatment Upcoming Encounters Date Type Department Care Team (Late st Contact Info) Description 09/07/2025 10:45 AM EDT Office Visit [facility] Electrophysiology [address] [facility] [address] [place] [address] [place] [address] [place] [address] [address] [place] [address] documented as of this encounter Visit Diagnoses Not on filedocumented in this encounter Care Teams Lumber Trimmer Relationship Specialty Start Date End Date Niranjan Mccarty MD [address] [place] [address] PCP - General Adolescent Medicine 10/15/23 documented as of this encounter
--- OUTSIDE RECORDS SUMMARY | 2025-04-27 09:51 | XMS_ITS | Encounter Summary ---
Author Organization [employer] Address [address] [place] [address] Care Team Providers Care Cottage Attendant Name Role Phone Niranjan Mccarty MD Primary Care Provider [phone] Encounter Details Date Type Department Care Team (Late st Contact Info) Description 06/12/2021 Transcribed Document [facility] [place] [address] [place] [address] ProviderAkash MD [address] [place] [address] Social History Tobacco Use Types Packs/Day Years Used Date Smoking Tobacco: Never Assessed Comments Unknown Sex and Gender Information Value Date Recorded Sex Assigned at Not on file Legal Sex Female 1:32 PM CDT Gender Identity Not on file Sexual Orientation Not on file documented as of this encounter Miscellaneous Notes * Cerner Conversion Note - Akash ProviderMD - 06/12/2021 8:09 PM CDT Event Note Entered On: 06/12/2021 20:10 EDT Performed On: 06/12/2021 20:09 EDT by MIRTA CRUM RN Event Note Event Date/Time : 06/12/2021 20:09 EDT Description of Event : Report called to [facility]. Pt transferred to room 428 MIRTA CRUM RN - 06/12/2021 20:09 EDT Electronically signed by [facility] Conversion Railroad Signal And Switch Operator Cerner at 03/07/2023 1:36 PM CDT documented in this encounter Plan of Treatment Upcoming Encounters Date Type Department Care Team (Late st Contact Info) Description 09/07/2025 10:45 AM EDT Office Visit [facility] Electrophysiology [address] [facility] [address] [place] [address] Adrienne Dunn MD [address] [facility] [address] [place] [address] documented as of this encounter Visit Diagnoses Not on filedocumented in this encounter Care Teams Cottage Attendant Relationship Specialty Start Date End Date Niranjan Mccarty MD [address] [place] [address] PCP - General Adolescent Medicine 10/15/23 documented as of this encounter
--- OUTSIDE RECORDS SUMMARY | 2025-04-27 09:51 | XMS_ITS | Data Portability ---
Author Organization [place] - [employer] Address [address] [facility] [address] [place] [address] Care Team Providers Care Lens Grinder Name Role Phone JOE MORRIS Primary Care Provider Assessment No assessment recorded. Plan of Treatment Reminders Order Date Submit Date Provider Last Modified By Organization Details Last Modified Time Details Appointments None recorded. Lab None recorded. Referral None recorded. Procedures pacemaker check (PROC) 2018 019 DARION [place] [address], [facility], [place], [address], 9 11:22:51 Surgeries None recorded. Imaging electrocard iogram 2018 019 [email or web address] [place] [address], [facility], [place], [address], 9 11:10:04 Medication Orders None recorded. Patient TargetsNo targets recorded. Patient Instructions Encounter Date Encounter Id Patient Instructions Last Modified By Organization Details Last Modified Time 09/16/2019 [id number] shortness of breath: care instructions [email or web address] Not available 09/16/2019 11:01:55 Reason for Referral None Reported. Results Created Date Observation Date Name Description Value Unit Range Abnormal Flag Note LastModifiedBy Organization Detail LastModifiedTime 09/17/2009/16/2019 pacem bonnie check (PROC ) No observ ation record ed. BARCODE [place] [address] [facility], [place], [address], 09/17/2019 11:55:20 09/20/2009/16/2019 bismark levine am No observ ation record ed. [email or web address] [facility] Cardiology [address], [place], [address], 09/20/2019 08:57:38 09/22/20 19 09/16/2019 elect rafa levine am No observ ation record ed. [email or web address] [facility] Cardiology [address], [place], [address], 09/22/2019 15:16:41 Result Notes None recorded. Problems Name Problem SNOMED Code Status Onset Date Resolution Date Notes Provider Name and Address Organization Details Recorded Time Clinical finding Active 2015 From Automated Load;Prov ider: Edgardo Cox;S tatus: Active Not Available [facility] 7 02:34:07 Pelvic and perineal pain 482310715 Active 2015 From Automated Load;Prov ider: Edgardo Cox;S tatus: Active Not Available [facility] 7 06:48:32 Paroxysma l atrial fibrillat ion 277922206 Active 2018 A FLUTTER AND AT ALSO REPORTED ON RECORDS JESUS ANDERSEN MD [address] [place] [address], [address] , [facility] 9 07:44:01 Permanent cardiac pacemaker 22772640580 9102 Active 2018 JESUS ANDERSEN MD [address] [place] [address], [address] , [facility] 9 07:42:23 Mitral valve prolapse 222343499 Active 2018 AMVL JESUS ANDERSEN MD [address] [place] [address], [address] , [facility] 9 07:43:00 Chronic obstructi ve pulmonary disease 01391687 Active 2018 JESUS ANDERSEN MD [address] [place] [address], [address] , [facility] 9 07:43:11 Dyslipide james 983956357 [place] [address] [place] [address], [address] , [facility] 9 07:43:23 Hypertens petra disorder 94849083 Active 2018 [place] [address] [place] [address], [address] , [facility] 9 07:43:32 Sick sinus syndrome 10812276 Active 2018 JESUS ANDERSEN MD [address] [place] [address], [address] , [facility] 9 07:43:44 Problem Notes None recorded. Procedures Surgical History Date Name Laterality Status Provider Name and Address Organization Details Recorded Time 12/08/19 15 Pacemaker completed [facility] 09/16/2019 10:43:33 09/18/20 09 cataract surgery completed [facility] 09/16/2019 10:40:57 08/17/20 09 cataract surgery completed [facility] 09/16/2019 10:40:44 08/17/20 07 colonoscopy completed [facility] 09/16/2019 10:41:09 11/22/18 86 Cholecystectomy completed [facility] 09/16/2019 10:41:25 11/23/18 85 hysterectomy completed [facility] 09/16/2019 10:42:02 11/17/18 80 procedure on foot completed [facility] 09/16/2019 10:42:27 11/19/18 55 tonsillectomy completed [facility] 09/16/2019 10:42:58 Appendectomy completed [facility] 09/16/2019 10:43:05 Imaging Results None recorded. Procedure Notes None recorded. Medical Equipment Implant [employer] Issuing Agency Serial Number Lot Number Status Provider Name and Address Organization Details Recorded Time [employer] [id number] [facility] 10/27/2018 08:55:56 Allergies Allergen ID Allergen Name Allergen Category Reaction Reaction Severity Criticality Documentation Date Start Date Code Code System Note Provider Name and Address Organization Details Recorded Time 029764 Product containin g penicilli n (product) medicatio n Not available Not available Not available 10/10/20162009 17897 8001 SNOMED Comme nt: Creat ed By: Ivone sommer;Cre ated Date: 3:17: 50 PM; Not Available [facility] 6 10:20:26 298891 vitamin K1 medicatio n Not available Not available Not available 10/10/20162009 8308 RxNorm Comme nt: Creat ed By: Ivone sommer;Cre ated Date: 3:19: 03 PM; Not Available [facility] 6 10:20:26 654601 Percodan medicatio n Not available Not available Not available 10/10/20162009 40511 RxNorm Comme nt: Creat ed By: Ivone sommer;Cre ated Date: 3:19: 27 PM; Not Available [facility] 6 10:20:26 360355 codeine medicatio n Not available Not available Not available 10/10/20162009 2670 RxNorm Comme nt: Creat ed By: Ivone sommer;Cre ated Date: 3:17: 27 PM; Not Available [facility] 6 11:31:45 571534 Biaxin medicatio n Not available Not available Not available 10/10/20162009 89472 9 RxNorm Comme nt: Creat ed By: Ivone sommer;Cre ated Date: 3:19: 14 PM; Not Available [facility] 6 11:31:45 749849 lovastati n / niacin medicatio n Not available Not available Not available 10/10/20162009 76739 7 RxNorm Comme nt: Creat ed By: Ivone sommer;Cre ated Date: 3:19: 37 PM; Not Available [facility] 6 11:46:40 624453 Claritin medicatio n Not available Not available Not available 10/10/2016200957 6 RxNorm Comme nt: Creat ed By: Ivone sommer;Cre ated Date: 3:20: 30 PM; Not Available [facility] 6 11:46:40 692209 Substance with sulfonami de structure and antibacte rial mechanism of action (substanc e) medicatio n Not available Not available Not available 10/10/20162009 83635 8003 SNOMED Comme nt: Creat ed By: Ivone sommer;Cre ated Date: 3:20: 54 PM; Not Available [facility] 6 11:46:40 905829 Cortizone medicatio n Not available Not available Not available 10/10/20162009 59471 40 RxNorm Comme nt: Creat ed By: Ivone sommer;Cre ated Date: 3:18: 18 PM; Not Available [facility] 6 13:35:35 622150 Radha medicatio n Not available Not available Not available 10/10/20162009 40517 6 RxNorm Comme nt: Creat ed By: Ivone sommer;Cre ated Date: 3:20: 43 PM; Not Available [facility] 6 13:35:35 918290 Cipro medicatio n other Not available Not available 10/11/2016200956 3 RxNorm Comme nt: Creat ed By: Ivone sommer;Cre ated Date: 3:19: 47 PM; Not Available [facility] 6 08:19:36 430294 tetracycl ine hydrochlo ride medicatio n Not available Not available Not available 04/09/20172015 39943 6 RxNorm Comme nt: Creat ed By: Pepe gonzalez Date: 2015 4:34: 27 PM; Not Available [facility] 7 03:48:27 101851 doxycycli ne monohydra te medicatio n other Not available Not available 04/09/2017201512 2 RxNorm React ion: OTHER ; Comme nt: Creat ed By: Pepe Spivey ;Crea lisa Date: 2015 4:33: 37 PM; Not Available [facility] 7 03:48:27 311086 hydrocort isone medicatio n Not available Not available Not available 09/16/2019 5492 RxNorm [facility] 9 10:44:27 916200 fexofenad ine medicatio n Not available Not available Not available 09/16/2019 69466 RxNorm [facility] 9 10:44:35 347887 ioxaglic acid Not available Not available Not available Not available 09/16/2019 90978 58 RxNorm [facility] 9 10:44:42 209445 loratadin e medicatio n Not available Not available Not available 09/16/2019 04071 RxNorm [facility] 9 10:44:50 495792 rofecoxib medicatio n Not available Not available Not available 09/16/2019 76484 8 RxNorm [facility] 9 10:45:06 418703 tetracain e medicatio n Not available Not available Not available 09/16/2019 50117 RxNorm [facility] 9 10:45:21 974666 azithromy octavia medicatio n other Not available Not available 09/16/2019 88666 RxNorm Cuca Diaz [facility] 9 10:46:32 718434 OsCal 500 medicatio n other Not available Not available 09/16/2019 38088 9 RxNorm [facility] 9 10:46:47 080363 cefuroxim e Not available other Not available Not available 09/16/2019 2194 RxNorm [facility] 9 10:47:09 816200 cerivasta tin medicatio n other Not available Not available 09/16/2019 86189 3 RxNorm [facility] 9 10:47:27 575485 erythromy octavia medicatio n other Not available Not available 09/16/2019 4053 RxNorm [facility] 9 10:47:51 825509 lovastati n medicatio n other Not available Not available 09/16/2019 6472 RxNorm [facility] 9 10:48:18 073052 niacin medicatio n other Not available Not available 09/16/2019 7393 RxNorm [facility] 9 10:48:26 144145 vitamin K1 medicatio n other Not available Not available 09/16/2019 8308 RxNorm [facility] 9 10:48:46 694848 vitamin K2 medicatio n other Not available Not available 09/16/2019 63818 RxNorm [facility] 9 10:49:19 344276 cortisone medicatio n other Not available Not available 09/16/2019 2878 RxNorm swell ing [facility] 9 10:49:53 513643 aspirin medicatio n other Not available Not available 09/16/2019 1191 RxNorm hyper [facility] 9 10:50:14 014851 clarithro mycin medicatio n diarrhea Not available Not available 09/16/2019 46753 RxNorm [facility] 9 10:50:33 773112 oxycodone medicatio n other mild Not available 09/16/2019 7804 RxNorm hyper Cuca Diaz [facility] 9 10:50:52 38544 Baycol medicatio n Not available Not available Not available 10/10/20162009 44353 7 RxNorm Comme nt: Creat ed By: Ivone sommer;Cre ated Date: 3:19: 59 PM; Not Available [facility] 6 10:09:37 01908 Vioxx medicatio n Not available Not available Not available 10/10/20162009 61861 9 RxNorm Comme nt: Creat ed By: Ivone sommer;Cre ated Date: 3:20: 08 PM; Not Available [facility] 6 10:09:37 70269 Iodinated contrast media (substanc e) medicatio n Not available Not available Not available 10/10/20162009 66582 2004 SNOMED Comme nt: Creat ed By: Ivone sommer;Cre ated Date: 3:17: 40 PM; Not Available [facility] 6 10:09:37 39546 E-Mycin medicatio n Not available Not available Not available 10/10/20162009 82851 8 RxNorm Comme nt: Creat ed By: Ivone sommer;Cre ated Date: 3:18: 38 PM; Not Available [facility] 6 10:09:37 Medications Name Sig Start Date [...] Updated DateTime 9 170.18 cm 23.2 kg/m2 14078.6 7 g 74 /min 128 mm[Hg] 86 mm[Hg] Cinthia Ocampo [facility] 9 10:26:06 Social History Question Answer Notes LastModified by Organizat ion Details LastModified Time Tobacco Smoking Status Never Smoker Cinthia Ocampo [facility] 09/16/2019 10:23:04 How Much Tobacco Do You [...] SNOMED-CT Code Diagnosis ICD10 Code Diagnosis Note [id number] JESUS ANDERSEN MD CARDIOLOG [address] [place] [address] 09/16/2019 10:05:24 09/16/2019 11:10:04 Dyspnea 599316266 R06.00 The patient's dyspnea may in part [...] Smith Member ID Guarantor Name 09/17/2019 2 [facility] (MEDICARE SUPPLEMENT) Tran Peguero [id number] Tran Peguero 09/16/2019 1 [place] Tran Peguero [id number] Tran Peguero Notes Date Note Type [...] to secondary smoke exposure. Pulmonary function testing 2016 showed moderately severe obstructive airway disease and mild neuromuscular disease. The patient has been assessed by 2 previous electrophysiologists. One adjusted her AV delays for more physiologic pacing. She states that this did not result in a significant improvement in her complaints of dyspnea. The patient was then seen in consultation by another ticket collector who recommended continued medical management. The patient was not satisfied with the management plan and consultation has been requested as there is a concern for persistent LV dyssynchrony being the etiology for her functional impairment. JESUS ANDERSEN MD [address] [facility], [place], [address], [facility] 09/16/2019 11:03:19 OBGyn Episode No OBEpisode recorded.
--- OUTSIDE RECORDS SUMMARY | 2025-04-27 09:51 | XMS_ITS | Encounter Summary ---
Author Organization [employer] Address [address] [place] [address] Care Team Providers Care Hand Quilter Name Role Phone Niranjan Mccarty MD Primary Care Provider [phone] Encounter Details Date Type Department Care Team (Late st Contact Info) Description 08/23/2021 Transcribed Document [facility] [place] [facility] [place] [address] ProviderAkash MD [address] [place] [address] Social History Tobacco Use Types Packs/Day [...] Akash ProviderMD - 08/23/2021 1:33 PM CDT Broset Violence Assessment Entered On: 08/23/2021 13:46 EDT Performed On: 08/23/2021 13:43 EDT by GEORGINA EVERETT RN Broset Violence Assessment Broset Violence Checklist of Symptoms : None Broset Violence Symptoms Subtotal : 0 Broset Violence Symptoms Indicator : Low risk (0) Broset Interventions : [place] precautions for safety used GEORGINA EVERETT RN - 08/23/2021 13:43 EDT documented in this encounter Plan of Treatment Upcoming Encounters Date Type Department Care Team (Late st Contact Info) Description 09/07/2025 10:45 AM EDT Office Visit [facility] Electrophysiology [address] [facility] [address] [place] [address] Adrienne Dunn MD [address] [facility] [address] [place], [place] [id number] documented as of this encounter Visit Diagnoses Not on filedocumented in this encounter Care Teams Hand Quilter Relationship Specialty Start Date End Date Niranjan Mccarty MD [address] [place] [address] PCP - General Adolescent Medicine 10/15/23 documented as of this encounter
--- OUTSIDE RECORDS SUMMARY | 2025-04-27 09:51 | XMS_ITS | Encounter Summary ---
Author Organization [employer] Address [address] [place] [address] Care Team Providers Care Sped Teacher Name Role Phone Niranjan Mccarty MD Primary Care Provider [phone] Encounter Details Date Type Department Care Team (Late st Contact Info) Description 06/13/2021 Transcribed Document [facility] [place] [facility] [place] [address] ProviderAkash MD [address] [place] [address] Social History Tobacco Use Types Packs/Day Years Used Date Smoking Tobacco: Never Assessed Comments Unknown Sex and Gender Information Value Date Recorded Sex Assigned at Not on file Legal Sex Female 1:32 PM CDT Gender Identity Not on file Sexual Orientation Not on file documented as of this encounter Miscellaneous Notes * Cerner Conversion Note - Akash ProviderMD - 06/13/2021 1:21 PM CDT UM Authorization Entered On: 06/13/2021 13:21 EDT Performed On: 06/13/2021 13:21 EDT by Jen Rothman Rn-Utilization Review Primary Insurance Authorization Authorization and Policy Numbers : Insurance 1 Health Plan: MEDICARE Policy Number: [id number] Authorization Number: Insurance 2 Health Plan: [facility] Policy Number: [id number] Authorization Number: Insurance Primary Name : MEDICARE Authorized Service Begin Date-Primary : 06/12/2021 EDT Historical Authorization Comments-Primary : No Authorization Comments Found Jen Rothman Rn-Utilization Review - 06/13/2021 13:21 EDT Electronically signed by Cecy [facility] Conversion Gambling Floor Supervisor Cerner at 03/07/2023 1:31 PM CDT documented in this encounter Plan of Treatment Upcoming Encounters Date Type Department Care Team (Late st Contact Info) Description 09/07/2025 10:45 AM EDT Office Visit [facility] Electrophysiology [address] [facility] [address] [place] [phone] [place] [address] [place] [address] [address] [place] [address] documented as of this encounter Visit Diagnoses Not on filedocumented in this encounter Care Teams Sped Teacher Relationship Specialty Start Date End Date Niranjan Mccarty MD [address] [place] [address] PCP - General Adolescent Medicine 10/15/23 documented as of this encounter
--- OUTSIDE RECORDS SUMMARY | 2025-04-27 09:51 | XMS_ITS | Encounter Summary ---
Author Organization [employer] Address [address] [place] [address] Care Team Providers Care Preventive Medicine Officer Name Role Phone Niranjan Mccarty MD Primary Care Provider [phone] Encounter Details Date Type Department Care Team (Latest Contact Info) Description 03/02/2025 Travel Social History Tobacco Use Types Packs/Day Years [...] Date Garrett rded Speak language other than Swedish at home Not on file 11/28/2023 Want [...] EDT Office Visit [facility] Electrophysiology [address] [facility] [address] [place] [address] Adrienne Dunn MD [address] [facility] [address] [place], [place] [id number] documented as of this encounter Visit Diagnoses Not on filedocumented in this encounter Care Teams Preventive Medicine Officer Relationship Specialty Start Date End Date Niranjan Mccarty MD [address] [place] [address] PCP - General Adolescent Medicine 10/15/23 documented as of this encounter
--- OUTSIDE RECORDS SUMMARY | 2025-04-27 09:51 | XMS_ITS | Encounter Summary ---
Author Organization [employer] Address [address] [facility] [place] [address] Care Team Providers Care Classified Copy Control Clerk Name Role Phone Niranjan Mccarty MD Primary Care Provider [phone] Encounter Details Date Type Department Care Team (Late st Contact Info) Description 06/12/2021 Transcribed Document [facility] [place] [facility] [place] [address] ProviderAkash MD [address] [place] [address] Social History Tobacco Use Types Packs/Day Years Used Date Smoking Tobacco: Never Assessed Comments Unknown Sex and Gender Information Value Date Recorded Sex Assigned at Not on file Legal Sex Female 1:32 PM CDT Gender Identity Not on file Sexual Orientation Not on file documented as of this encounter Miscellaneous Notes * Cerner Conversion Note - Akash ProviderMD - 06/12/2021 12:53 PM CDT Pre Procedure Adult Entered On: 06/12/2021 12:59 EDT Performed On: 06/12/2021 12:53 EDT by Nory Farfan, RN Height and Weight, Clinical Dosing Height Source : Stated Height Entry Format : Archie Height, Feet : 5 ft(Converted to: 152 cm, 60 Inch) Height, Inches : 7 Inch(Converted to: 0 ft 7 Inch, 17.78 cm) Clinical Height : 170.18 cm Weight Source : Standing scale Weight Entry Format : Archie Clinical Dosing Weight : 65.91 kg Weight, Pounds : 145 lb Body Surface Area (BSA) : 1.77 m2 Body Mass Index : 22.8 kg/m2 [place] Body Weight : 61 kg Nory Farfan RN - 06/12/2021 12:53 EDT Health Histories Smoking Status : Never (less than 100 in lifetime; none in last 30 days) Smokeless Tobacco Status : Never Nory Farfan RN - 06/12/2021 12:53 EDT Social History (As Of: 06/12/2021 12:59:21 EDT) Tobacco: Use in Last 12 Months: [...] 07/11/2018 20:18:12 EDT by BRAYAN LUNA RN) Infectious Disease History Has the patient ever been tested for COVID-19? : Yes, Patient stated results Negative Date of COVID-19 test known? : Yes Date of COVID-19 Test : 06/09/2021 EDT Does patient have symptoms of COVID-19? : No COVID19 Screening : No Experiencing Infectious Disease Symptoms : No symptoms Physical contact outside [place] in the last 30 days : No Infectious Disease History : Chicken pox/Shingles, Influenza, Measles, Scarlet fever Tuberculosis Symptoms : None Nory Farfan RN - 06/12/2021 12:53 EDT COVID19 PreProcedure Screening Is this an Emergent or Add on Procedure? : No Date PreProcedure COVID-19 test known? : Yes Date of PreProcedure COVID-19 : 06/09/2021 EDT Has patient been isolated since the test : Yes Exposed to COVID19 symptoms since test? : No Nory Farfan RN - 06/12/2021 12:53 EDT Anesthesia/Transfusion History Family History of Anesthesia Reaction : Prior transfusion reaction Type of Transfusion Reaction : Other: convulsions after a blood transfusion tremors - happened back in the 80s Blood Transfusion Acceptable to Patient : Yes Transfusion History : Prior anesthesia without reaction Family History of Anesthesia Reaction : None Nory Farfan RN - 06/12/2021 12:53 EDT Functional Assessment Living Situation : Home Patient Lives With : Spouse Current Home Treatments : Oxygen therapy Home Equipment : Cane Nory Farfan RN - 06/12/2021 12:53 EDT Caroline Suicide Severity Rating Scale (C-SSRS) CSSRS Past Month Wish to be : No CSSRS Past Month Suicidal Thoughts : No CSSRS Lifetime Suicide Behavior : No Suicide Severity Rating Score : 0 Suicide Severity Rating : No Additional Care Required at this time Nory Farfan RN - 06/12/2021 12:53 EDT Psychosocial History Do You Have a History of the Following? : Anxiety Currently in Unsafe Situation : No Nory Farfan RN - 06/12/2021 12:53 EDT Advance Directive Patient has Advance Directive *Q : No, patient refuses Advance Directive information Nory Farfan RN - 06/12/2021 12:53 EDT Teaching/Learning Assessment Barriers To Learning : None evident Individuals Taught : Patient Readiness to Learn : Explanation Learning Style Preferences Patient : Verbal explanation Nory Farfan RN - 06/12/2021 12:53 EDT Education Topics, Periop Preadmission Perioperative Education [place] : Verbalizes understanding Infection Control : Verbalizes understanding IV's : Verbalizes understanding NPO Status/Directions : Verbalizes understanding Pain Management : Verbalizes understanding Preprocedure Preparations : Verbalizes understanding Preprocedure Tests/Labs : Verbalizes understanding Nory Farfan RN - 06/12/2021 12:53 EDT General Info Preferred Name : megha Arrived From : Home Mode of Arrival on Unit : Wheelchair Patient Arrival Date/Time : 06/12/2021 12:10 EDT Legal Guardian : Daughter Legal Guardian : No Support Person/Patient Family Coach : Yes Support Person/Pt Rep Name : daughter- sherley gómez Support Person/Pt Rep Contact Information : gordon [phone] Want Family/Rep/Phys Notified of Admit : No Emergency Contact #1 : NA Emergency Contact #1 Phone Number : NA Emergency Contact #1 Relationship : NA Emergency Contact #2 : NA Emergency Contact #2 Phone Number : NA Emergency Contact #2 Relationship : NA Information Obtained From : Patient Primary Language : Stateless Preferred Communication Mode : Verbal Communication Barrier : None Outsole Tacker Needed : No Nory Farfan RN - 06/12/2021 12:53 EDT Vital Measurements Temperature Source : Temporal artery scanning Temperature Mode : Fahrenheit Temperature, Fahrenheit : 98.0 Deg F Clinical Temperature, C : 36.7 Deg C Peripheral Pulse Rate : 65 bpm Systolic Blood Pressure : 147 mmHg (HI) Diastolic Blood Pressure : 85 mmHg Oxygen Saturation : 97 % Oxygen Therapy Mode : Room air Nory Farfan RN - 06/12/2021 12:53 EDT Sleep Apnea Risk Assmt Hx of [...] Sleep Apnea Risk Level Score : 3 Nory Farfan RN - 06/12/2021 12:53 EDT Lemuel Scale Lemuel Sensory Perception : No impairment Lemuel Moisture : Rarely moist Lemuel Activity : Walks occasionally Lemuel Mobility : Slightly limited Lemuel Nutrition : Excellent Lemuel Friction and Shear : No apparent problem Lemuel Score : 21 Nory Farfan RN - 06/12/2021 12:53 EDT Pain Assessment Pain Assessment : Initial assessment Pain Scale Used : 0-10 Scale Location : Back Onset : Chronic Nory Farfan RN - 06/12/2021 12:53 EDT Fall Risk Scales ABCs Fall Injury Risk Identification : Age, Coagulation ABC Fall Injury Risk : Moderate to high injury risk Injury Moderate to High Risk Interventions : Wrist band (fall risk) on per policy WEAVER Hx Falls Immediate/Within 3 Months : No Weaver Secondary Diagnosis : No WEAVER Use of Ambulatory Aid : Bed rest/Nurse assist WEAVER IV Therapy or IV Access : Yes Weaver Gait/Transferring : Normal, bedrest, immobile Weaver Mental Status : Oriented to own ability Weaver Fall Risk Score : 20 WEAVER Fall Scale Risk Level : 0-24 Low Risk Benedict Fall Interventions : Adequate lighting, Bed in low position, Call device within reach, Hourly comfort/safety rounds, Non-slip footwear, Personal items within reach, Room free of clutter/spills, Upper side-rails up, Wheels locked, Wires/Cords secured Fall Risk Scale Calc Temp : 0 FarfanNory RN - 06/12/2021 12:53 EDT Valuables and Belongings Valuables and Belongings [...] With family, Declines to send to security/safe Nory Farfan RN - 06/12/2021 12:53 EDT Pain Scale Intensity : 2 FarfanNory RN - 06/12/2021 12:53 EDT Image 4 - Images currently included in the form version of this document have not been included in the text rendition version of the form. documented in this encounter Plan of Treatment Upcoming Encounters Date Type Department Care Team (Late st Contact Info) Description 09/07/2025 10:45 AM EDT Office Visit [facility] Electrophysiology [address] [facility] [address] [place] [address] Adrienne Dunn MD [address] [place] [address] [address] [place] [address] documented as of this encounter Visit Diagnoses Not on filedocumented in this encounter Care Teams Classified Copy Control Clerk Relationship Specialty Start Date End Date Niranjan Mccarty MD [address] [place] [address] PCP - General Adolescent Medicine 10/15/23 documented as of this encounter
--- OUTSIDE RECORDS SUMMARY | 2025-04-27 09:51 | XMS_ITS | Encounter Summary ---
Author Organization [employer] Address [address] [place] [address] Care Team Providers Care Regulator Pin Inserter Name Role Phone Niranjan Mccarty MD Primary Care Provider [phone] Encounter Details Date Type Department Care Team (Late st Contact Info) Description 10/10/2019 Transcribed Document [facility] [place] [facility] [place] [address] ProviderAkash MD [address] [place] [address] Social History Tobacco Use Types Packs/Day Years Used Date Smoking Tobacco: Never Assessed Comments Unknown Sex and Gender Information Value Date Recorded Sex Assigned at Not on file Legal Sex Female 1:32 PM CDT Gender Identity Not on file Sexual Orientation Not on file documented as of this encounter Miscellaneous Notes * Cerner Conversion Note - Akash Vega MD - 10/10/2019 11:58 AM GEOGRAPHIC INFORMATION SYSTEM ANALYST UM Authorization Entered On: 10/10/2019 11:59 EST Performed On: 10/10/2019 11:58 EST by SABRINA MCKEON RN Primary Insurance Authorization Authorization and Policy Numbers : Insurance 1 Health Plan: MEDICARE Policy Number: [id number] Authorization Number: Insurance 2 [facility] Policy Number: [id number] Authorization Number: Insurance Primary Name : MEDICARE Policy Number: [id number] Historical Authorization Comments-Primary : No Authorization Comments Found SABRINA MCKEON RN - 10/10/2019 11:58 EST documented in this encounter Plan of Treatment Upcoming Encounters Date Type Department Care Team (Late st Contact Info) Description 09/07/2025 10:45 AM EDT Office Visit [facility] Electrophysiology [address] [facility] [address] [place] [address] Adrienne Dunn MD [address] [facility] [address] [place], [place] [id number] documented as of this encounter Visit Diagnoses Not on filedocumented in this encounter Care Teams Regulator Pin Inserter Relationship Specialty Start Date End Date Niranjan Mccarty MD [address] [place] [address] PCP - General Adolescent Medicine 10/15/23 documented as of this encounter
--- OUTSIDE RECORDS SUMMARY | 2025-04-27 09:51 | XMS_ITS | Encounter Summary ---
Author Organization [employer] Address [address] [place] [address] Care Team Providers Care Application Development Liaison Name Role Phone Niranjan Mccarty MD Primary Care Provider [phone] Encounter Details Date Type Department Care Team (Late st Contact Info) Description 06/13/2021 Transcribed Document [facility] [place] [facility] [address] ProviderAkash MD [address] [place] [address] Social History Tobacco Use Types Packs/Day Years Used Date Smoking Tobacco: Never Assessed Comments Unknown Sex and Gender Information Value Date Recorded Sex Assigned at Not on file Legal Sex Female 1:32 PM CDT Gender Identity Not on file Sexual Orientation Not on file documented as of this encounter Miscellaneous Notes * Cerner Conversion Note - Akash ProviderMD - 06/13/2021 6:26 AM CDT Patient: TRAN PEGUERO Age: 85 Years Sex: Female : 1935 @ around 0600hr patient complained of pain at the lt shoulder , offered pain medication ordered by doctor as telephone order but patient said she will take them after her breakfast. Electronically signed by Sherri Sam Conversion Rn Document Improvement Specialist Nathaniel at 03/07/2023 1:46 PM CDT documented in this encounter Plan of Treatment Upcoming Encounters Date Type Department Care Team (Late st Contact Info) Description 09/07/2025 10:45 AM EDT Office Visit [address] [phone] Adrienne Dunn MD [address] [facility] [address] [place] [address] documented as of this encounter Visit Diagnoses Not on filedocumented in this encounter Care Teams Application Development Liaison Relationship Specialty Start Date End Date Niranjan Mccarty MD [address] [place] [address] PCP - General Adolescent Medicine 10/15/23 documented as of this encounter
--- OUTSIDE RECORDS SUMMARY | 2025-04-27 09:51 | XMS_ITS | Encounter Summary ---
Author Organization [employer] Address [address] [place] [address] Care Team Providers Care Computer Operations Analyst Name Role Phone Niranjan Mccarty MD Primary Care Provider [phone] Encounter Details Date Type Department Care Team (Late st Contact Info) Description 06/13/2021 Transcribed Document [facility] [place] [address] [place] [address] ProviderAkash MD [address] [place] [address] Social History Tobacco Use Types Packs/Day Years Used Date Smoking Tobacco: Never Assessed Comments Unknown Sex and Gender Information Value Date Recorded Sex Assigned at Not on file Legal Sex Female 1:32 PM CDT Gender Identity Not on file Sexual Orientation Not on file documented as of this encounter Miscellaneous Notes * Cerner Conversion Note - Akash Vega MD - 06/13/2021 3:12 PM CDT [facility] [place] [address] TAL ROME :1935 Visit Time:06/12/2021 Your [...] Dr. Dunn Appointment has been made Where: [facility] [address] [place] [id number] Business (1) Medications What How Much When Instructions Next Dose carBAMazepine (TEGretol) 200 Milligram(s) Oral At Bedtime 06/13/2021 9pm pantoprazole 40 Milligram(s) Oral Every Day 06/14/2021 0900am sotalol 160 Milligram(s) Oral Two Times A Day 06/13/2021 9pm warfarin See instructions 3.75 Oral every FRIDAY DO NOT RESUME UNTIL AFTER YOUR FOLLOW UP APPOINTMENT AND WOUND CHECK SEE Dr before taking this medication warfarin (warfarin 7.5 mg oral tablet) Oral Every Day except sundays DO NOT RESUME UNTIL AFTER YOUR FOLLOW UP APPOINTMENT AND WOUND CHECK ALPRAZolam (Xanax 0.5 mg oral tablet) 1 Tablet(s) Oral Two Times A Day 06/13/2021 9pm potassium chloride (potassium chloride 20 mEq/ 15 mL oral liquid) 15 Milliliter(s) Oral Every Day as needed for Other (See Comment) With torsemide 06/13/2021 as needed torsemide (torsemide 20 mg oral tablet) 1 Tablet(s) Oral Every Day as needed for Edema daily as needed traMADol 50 Milligram(s) Oral Every 12 hours as needed for as needed for pain umeclidinium-vilanterol (Anoro Ellipta 62.5 mcg-25 mcg/ inh inhalation powder) 1 Puff(s) Inhalation Every Day 06/14/2021 0900 Take your medications faithfully. Do NOT skip [...] these instructions at home: Medicines ??? Take fwyo-rio-fachgau and prescription medicines only as told by [...] and water are not available, use hand chemical analyst. ? Change your dressing as told [...] your chest for several days. ??? Take mqfl-mgq-cqvhmqf and prescription medicines only as told by [...] Reviewed: 10/04/2019 Elsevier Patient Education ?? 2020 [employer] Heart-Healthy Eating Plan Heart-healthy meal planning [...] Fats and oils Meat fat, or shortening. [place] butter, hydrogenated oils, palm oil, coconut oil, [...] provider. Document Revised: 01/07/2019 Document Reviewed: 12/11/2018 ElseLiftopia Patient Education ?? 2020 [employer]. Emergency Awareness and Preventative Care STROKE is [...] Assistance with quitting is available by contacting 9-623-VOIS-NOW. This is a free resource providing counseling, [...] range between ( 0.0 and 7.0 ) [place] #: 0.48 K/uL -- Normal range between ( 0.16 and 1.00 ) [place] #: 0.16 x10(3)/uL -- Normal range between ( 0.00 and 0.80 ) [place] %: 8.0 % -- Normal range between [...] 9.2 and 12.0 ) Patient Name:TAL ROME I have received and understand this information and was given the opportunity to ask questions. Patient/Information Clerk Name: Patient/Information Clerk Signature: Relationship to Patient: Clinician/Hospital Information Clerk Signature: Date: documented in this encounter Plan of Treatment Upcoming Encounters Date Type Department Care Team (Late st Contact Info) Description 09/07/2025 10:45 AM EDT Office Visit [address] [place] [address] Ewa Dunn MD [address] [place] [address] [address] [place] [id number] documented as of this encounter Visit Diagnoses Not on filedocumented in this encounter Care Teams Computer Operations Analyst Relationship Specialty Start Date End Date Niranjan Mccarty MD [address] [place] [address] PCP - General Adolescent Medicine 10/15/23 documented as of this encounter
--- OUTSIDE RECORDS SUMMARY | 2025-04-27 09:51 | XMS_ITS | Encounter Summary ---
Author Organization [employer] Address [address] [place] [address] Care Team Providers Care Boss Miner Name Role Phone Niranjan Mccarty MD Primary Care Provider [phone] Encounter Details Date Type Department Care Team (Late st Contact Info) Description 10/11/2019 Transcribed Document [facility] [place] [facility] [place] [address] ProviderAkash MD [address] [place] [address] Social History Tobacco Use Types Packs/Day Years Used Date Smoking Tobacco: Never Assessed Comments Unknown Sex and Gender Information Value Date Recorded Sex Assigned at Not on file Legal Sex Female 1:32 PM CDT Gender Identity Not on file Sexual Orientation Not on file documented as of this encounter Miscellaneous Notes * Cerner Conversion Note - Akash Vega MD - 10/11/2019 8:37 AM SHADE CLASSIFIER Patient: TRAN PEGUERO Age: 83 Years Sex: Female : 1935 Subjective Patient still complaining of on and off chest pain. No shortness of breath. Vital Signs T: 36.6 ??C TMIN: 36.5 ??C TMAX: 36.9 ??C HR: 72(Monitored) RR: 16 BP: 110/62 SpO2: 96% HT: 165.1 cm WT: 64.29 kg BMI: 23.59 Oxygen Settings (Last) Oxygen Therapy Mode: Nasal cannula (10/11/19 07:51:00) Oxygen Flow Rate: 2 Liter/Min (10/11/19 07:51:00) Intake & Output Totals Last 24 Hours (7a-7a) Input Total: 1102 mL Output Total: 825 mL Balance: 277 mL Physical Exam General: [Alert and oriented, [...] sublingual when necessary for recurrent chest pain Seen by cardiology, will go for Lexiscan stress test this morning NPO past midnight Hypertension Continue home medications [...] on Coumadin CODE STATUS is full code Possible discharge if findings unremarkable VTE Prophylaxis - Medical Warfarin 7.5 mg, Oral, Tab, Daily, Start 10/10/19 18:00:00 EST (CINTHIA ENNIS) Medications albuterol-ipratropium 2.5 mg-0.5 mg/3 mL inhalation solution, 3 mL, Nebulized Inhalation , RT_Q6H, PRN Coumadin, 7.5 mg= 1 Tab, Oral, Daily digoxin, 125 mcg= 1 Tab, Oral, Daily glycopyrrolate-indacaterol, 1 Each, Inhalation, BID hydrALAZINE, 5 mg= 0.25 mL, IV Push, Q6H, PRN Protonix, 40 mg= 1 Tab, Oral, Daily sotalol, 120 mg= 1.5 Tab, Oral, BID TEGretol, 200 mg= 1 Tab, Oral, At Bedtime traMADol, 50 mg= 1 Tab, Oral, Q12H Tylenol, 650 mg= 2 Tab, Oral, Q4H, PRN Xanax, 0.5 mg= 1 Tab, Oral, BID, PRN Zofran, 4 mg= 2 mL, IV Push, Q4H, PRN Diagnostic Results No Radiology Results Found Lab Results Test Name Test Result Date/Time PT 25.2 Second(s) (High) 10/11/2019 04:25 EST INR 2.4 (High) 10/11/2019 04:25 EST Electronically signed by Cecy [facility] Conversion Barrel Cleaner Cerner at 03/07/2023 1:25 PM CDT documented in this encounter Plan of Treatment Upcoming Encounters Date Type Department Care Team (Late st Contact Info) Description 09/07/2025 10:45 AM EDT Office Visit [facility] Electrophysiology [address] [place] [address] Adrienne Dunn MD [address] [place] [address] documented as of this encounter Visit Diagnoses Not on filedocumented in this encounter Care Teams Boss Miner Relationship Specialty Start Date End Date Niranjan Mccarty MD [address] [place] [address] PCP - General Adolescent Medicine 10/15/23 documented as of this encounter
--- OUTSIDE RECORDS SUMMARY | 2025-04-27 09:51 | XMS_ITS | Encounter Summary ---
Author Organization [employer] Address [address] [place] [address] Care Team Providers Care Plug Wirer Name Role Phone Niranjan Mccarty MD Primary Care Provider [phone] Encounter Details Date Type Department Care Team (Late st Contact Info) Description 06/13/2021 Transcribed Document [facility] [place] Family Medicine [facility] [place] [address] ProviderAkash MD [address] [place] [address] Social History Tobacco Use Types Packs/Day Years Used Date Smoking Tobacco: Never Assessed Comments Unknown Sex and Gender Information Value Date Recorded Sex Assigned at Not on file Legal Sex Female 1:32 PM CDT Gender Identity Not on file Sexual Orientation Not on file documented as of this encounter Miscellaneous Notes * Cerner Conversion Note - Akash Vega MD - 06/13/2021 10:40 AM CDT Patient Education Materials Follows: Heart-Healthy Eating Plan Heart-healthy meal planning includes: [...] plate with lean protein foods. ??? Eat 4?5 servings of vegetables per day. A serving of vegetables is: ? 1 cup of raw or cooked vegetables. ? 2 cups of raw leafy greens. ??? Eat 4?5 servings of fruit per day. A serving of fruit is: ? 1 medium whole fruit. ? ? cup of dried fruit. ? ? cup of fresh, frozen, or canned fruit. ? ? cup of 100% fruit juice. ??? Eat more foods that have soluble fiber. These are apples, broccoli, carrots, beans, peas, and barley. Try to get 20?30 g of fiber per day. ??? Eat 4?5 servings of nuts, legumes, and seeds per week: ? 1 serving of dried beans or legumes equals ? cup after being cooked. ? 1 serving of nuts is ? cup. ? 1 serving of seeds equals [...] Fats and oils Meat fat, or shortening. [place] butter, hydrogenated oils, palm oil, coconut oil, [...] provider. Document Revised: 01/07/2019 Document Reviewed: 12/11/2018 [employer] Patient Education ? 2020 [employer] Procedures Biventricular Pacemaker Implantation, Care After This sheet [...] these instructions at home: Medicines ??? Take kyji-tmg-oxrxcpq and prescription medicines only as told by [...] and water are not available, use hand order manager. ? Change your dressing as told by [...] Get up to take short walks every 1?2 hours. This is important to improve blood [...] test. ??? Have your pacemaker checked every 3?6 months or as often as told by [...] your chest for several days. ??? Take mrpi-vxq-fbfjvvr and prescription medicines only as told by [...] 10/04/2019 Document Reviewed: 10/04/2019 [employer] Patient Education ? 2019 [employer] documented in this encounter Plan of Treatment Upcoming Encounters Date Type Department Care Team (Late st Contact Info) Description 09/07/2025 10:45 AM EDT Office Visit [facility] Electrophysiology [address] [facility] [address] [place] [address] Adrienne Dunn MD [address] [facility] [address] [place] [address] documented as of this encounter Visit Diagnoses Not on filedocumented in this encounter Care Teams Plug Wirer Relationship Specialty Start Date End Date Niranjan Mccarty MD [address] [place] [address] PCP - General Adolescent Medicine 10/15/23 documented as of this encounter
--- NOTE | 2025-04-27 10:00 | CT_ITS ---
FINAL REPORT TECHNIQUE: Axial images were obtained through the chest without contrast. Coronal and sagittal reformatted images were obtained and reviewed. This study was performed with techniques to keep radiation doses as low as reasonably achievable, (ALARA). Individualized dose reduction techniques using automated exposure control or adjustment of mA and/or kV according to the patient's size were employed. CLINICAL HISTORY: Shortness of breath Patient states f/u from prior scan 3 months ago COMPARISON: 12/31/2024 FINDINGS: There is streak artifact arising from the left upper anterior chest wall pacemaker. There are dense coronary artery calcifications. There is no significant mediastinal adenopathy. There is a moderate right and trace left pleural effusion. There is consolidation in the right middle lobe and posterior left upper lobe. This consolidation in the right middle lobe and lingula are more evident than on the previous exam. There is patchy airspace opacity at the right lung base, which is increased over the previous exam. There are a few small scattered nodular densities in both lungs, which are nonspecific and favored to be inflammatory. IMPRESSION: Right pleural effusion, worse than previous exam. Worsening consolidation in the right middle lobe and lingula. Developing airspace opacity at the right lung base consistent with pneumonia. Reviewed, Interpreted and Dictated by Kirk Dickerson MD Transcribed by Zena Howell Authenticated and [facility]
[2025-04-27 10:56] LABS: PHA INR Fingerstick 2.3 (0.9-1.1)
== END 2025-04-27 11:20 ==
LOC: RAD 09:48
PROVIDERS: PCP Internal Medicine Adolescent Medicine; Visit Provider Internal Medicine Pulmonary Disease
DX: J90 Pleural effusion, not elsewhere classified (principal); J98.19 Other pulmonary collapse; R91.8 Other nonspecific abnormal finding of lung field; Z95.0 Presence of cardiac pacemaker; I48.91 Unspecified atrial fibrillation; Z79.01 Long term (current) use of anticoagulants
CPT/HCPCS: 71250; 85610; 99211; G0463

== ENCOUNTER 2025-06-14 10:52 | Outpatient (CLI) | payer MEDICARE, OTHER, SELFPAY ==
--- OUTSIDE RECORDS SUMMARY | 2025-04-06 05:00 | XMS_ITS | Encounter Summary ---
Author Organization [employer] ([place], [place], [place], [place]) Address [address] [place] [address] Care Team Providers Care Box Truck Driver Name Role Phone Niranjan Mccarty MD Primary Care Provider [phone] Reason for Visit * Reason Comments Pacemaker /ICD Home Monitoring Encounter Details Date Type Department Care Team (Late st Contact Info) Description 04/06/2025 5:00 AM EDT Clinical Support [facility] Electrophysiology [address] [place], [place] [id number] [place] [address] [place] [address] [address] [place] [address] Encounter for adjustment or management of cardiac device (Primary Dx); Paroxysmal atrial fibrillation (HCC); Presence of cardiac pacemaker; Sick sinus syndrome (HCC); Complete atrioventricular block (HCC) Social History Tobacco Use Types Packs/Day Years Used Date Smoking Tobacco: Never Smokeless Tobacco: Never Alcohol Use Standard Drinks/Week Comments Not Currently 0 (1 standard drink = 0.6 oz pur e alcohol) Family and Community Support Answer Sp e Recorded Help with Day to Day Activities Not on file 11/28/2023 Feeling Lonely or Isolated Not on file 11/28 Educational Attainment Answer Date Garrett rded Speak language other than Cuban at home Not on file 11/28/2023 Want help with school or training Not on file 11/28/2023 Substance Use Answer Date Recorded Used prescription meds for non-medical reasons N ot on file 11/28/2023 Used illegal drugs past 12 months Not on file 11/28/2023 Comments No Sex and Gender Information Value Date Recorded Sex Assigned at Not on file Legal Sex Female 1:32 PM CDT Gender Identity Not on file Sexual Orientation Not on file documented as of this encounter Plan of Treatment Upcoming Encounters Date Type Department Care Team (Late st Contact Info) Description 09/07/2025 10:45 AM EDT Office Visit [facility] Electrophysiology [address] [place] [id number] [place] [address] [place] [address] [address] [place] [address] documented as of this encounter Visit Diagnoses Diagnosis Encounter for adjustment or management of cardiac device- Primary Paroxysmal atrial fibrillation (HCC) Atrial fibrillation Presence of cardiac pacemaker Cardiac pacemaker in situ Sick sinus syndrome (HCC) Sinoatrial node dysfunction Complete atrioventricular block (HCC) Atrioventricular block, complete documented in this encounter Care Teams Box Truck Driver Relationship Specialty Start Date End Date Niranjan Mccarty MD [address] [place] [address] PCP - General Adolescent Medicine 10/15/23 documented as of this encounter
--- OUTSIDE RECORDS SUMMARY | 2025-06-14 10:55 | XMS_ITS | Encounter Summary ---
Author Organization [employer] ([place], [place], [place], [place]) Address [address] [place] [address] Care Team Providers Care Technical Support Intern Name Role Phone Niranjan Mccarty MD Primary Care Provider [phone] Encounter Details Date Type Department Care Team (Late st Contact Info) Description 10/11/2019 Transcribed Document [facility] Cardiology [address] [place] [address] Constantine Galvan MD [address] [place] [address] [address] [place] [id number] Social History Tobacco Use Types Packs/Day Years [...] 1. Normal study. 2. Ejection fraction 60%. /[id number] Constantine Galvan MD NMF/AQ / POLINA / MODL /[id number] documented in this encounter Plan of Treatment Upcoming Encounters Date Type Department Care Team (Late st Contact Info) Description 09/07/2025 10:45 AM EDT Office Visit [facility] Electrophysiology [address] [place], [place] [address] Adrienne Dunn MD [address] [place] [address] [address] [place] [id number] documented as of this encounter Visit Diagnoses Not on filedocumented in this encounter Care Teams Technical Support Intern Relationship Specialty Start Date End Date Niranjan Mccarty MD [address] [place] [address] PCP - General Adolescent Medicine 10/15/23 documented as of this encounter
--- OUTSIDE RECORDS SUMMARY | 2025-06-14 10:55 | XMS_ITS | Encounter Summary ---
Author Organization [employer] ([place], [place], [place], [place]) Address [address] [place] [address] Care Team Providers Care Cook Chief Name Role Phone Niranjan Mccarty MD Primary Care Provider [phone] Encounter Details Date Type Department Care Team (Late st Contact Info) Description 10/10/2019 Transcribed Document [facility] Cardiology [address] [place] [address] [place] [address] [place] [address] [address] [place] [address] Social History Tobacco Use Types Packs/Day Years [...] MD-CAR Basic Information PCP: NIRANJAN MORRIS MD Activity Assistant: Cole SAMUEL Chief Complaint chest pain History of Present Illness 83 year old female with a history of hypertension, hyperlipidemia, atrial fibrillation, SSS status post pacemaker placement, chronic anticoagulation with Coumadin, COPD. She presented to [facility] ER yesterday with complaints of chest pain. The pain was localized in the left side and radiated into her neck. She became diaphoretic and nauseated. The pain lasted for several minutes but returned later prompting her to seek medical attention. Troponin was negative however, based on her history and symptoms she was transferred to [facility] for evaluation. She is currently chest pain [...] l Past Medical History: Active Atrial fibrillation (81788629) Hyperlipidemia (62869920) Hypertension (48103577) Family History: Non contributory Procedure history: Appendectomy; (80430). cataract surgery. Cholecystectomy; (92567). eye surgery. foot surgery right. hand surgery. [...] 95 (OCT 10 00:42) H 147 (OCT 09 20:46) DBP 65 (OCT 10:) L 53 (OCT [...] of motion, Normal strength. Integumentary: Warm, Dry, [place]. Neurologic: Alert, Oriented. Psychiatric: Cooperative. Review / Management OCT 10 02:57 141 106 12 / 87 3.9 32 [...] Description 09/07/2025 10:45 AM EDT Office Visit [facility] Electrophysiology [address] [place] [address] Adrienne Dunn MD [address] [place] [address] [address] [place] [address] documented as of this encounter Visit Diagnoses Not on filedocumented in this encounter Care Teams Cook Chief Relationship Specialty Start Date End Date Niranjan Mccarty MD [address] [place] [address] PCP - General Adolescent Medicine 10/15/23 documented as of this encounter
--- OUTSIDE RECORDS SUMMARY | 2025-06-14 10:55 | XMS_ITS | Encounter Summary ---
Author Organization [employer] ([place], [place], [place], [place]) Address [address] [place] [address] Care Team Providers Care Inbound Customer Service Representative Name Role Phone Niranjan Mccarty MD Primary Care Provider [phone] Encounter Details Date Type Department Care Team (Late st Contact Info) Description 10/11/2019 Transcribed Document [facility] [place] Family [place] [facility] [place] [address] ProviderAkash MD [address] [place] [address] Social History Tobacco Use Types Packs/Day Years Used Date Smoking Tobacco: Never Assessed Comments Unknown Sex and Gender Information Value Date Recorded Sex Assigned at Not on file Legal Sex Female 1:32 PM CDT Gender Identity Not on file Sexual Orientation Not on file documented as of this encounter Miscellaneous Notes * Cerner Conversion Note - Akash Vega MD - 10/11/2019 8:57 AM CLINICAL PSYCHOLOGY PROFESSOR Event Note Entered On: 10/11/2019 8:57 EST [...] Description 09/07/2025 10:45 AM EDT Office Visit [facility] Electrophysiology [address] [place] [address] Adrienne Dunn MD [address] [facility] [address] [place] [address] documented as of this encounter Visit Diagnoses Not on filedocumented in this encounter Care Teams Inbound Customer Service Representative Relationship Specialty Start Date End Date Niranjan Mccarty MD [address] [place] [address] PCP - General Adolescent Medicine 10/15/23 documented as of this encounter
--- OUTSIDE RECORDS SUMMARY | 2025-06-14 10:55 | XMS_ITS | Encounter Summary ---
Author Organization [employer] ([place], [place], [place], [place]) Address [address] [place] [address] Care Team Providers Care Marble Machine Tender Name Role Phone Niranjan Mccarty MD Primary Care Provider [phone] Encounter Details Date Type Department Care Team (Late st Contact Info) Description 10/11/2019 Transcribed Document [facility] [place] [address] [place] [address] ProviderAkash MD [address] [place], [place] [id number] Social History Tobacco Use Types Packs/Day Years Used Date Smoking Tobacco: Never Assessed Comments Unknown Sex and Gender Information Value Date Recorded Sex Assigned at Not on file Legal Sex Female 1:32 PM CDT Gender Identity Not on file Sexual Orientation Not on file documented as of this encounter Miscellaneous Notes * Cerner Conversion Note - Akash Vega MD - 10/11/2019 9:00 AM AGILE PROJECT MANAGER Pain Assessment Entered On: 10/11/2019 16:45 EST [...] EDT Office Visit [facility] Electrophysiology [address] [place] [address] Adrienne Dunn MD [address] [place] [address] [address] [place] [address] documented as of this encounter Visit Diagnoses Not on filedocumented in this encounter Care Teams Marble Machine Tender Relationship Specialty Start Date End Date Niranjan Mccarty MD [address] [place] [address] PCP - General Adolescent Medicine 10/15/23 documented as of this encounter
--- OUTSIDE RECORDS SUMMARY | 2025-06-14 10:55 | XMS_ITS | Encounter Summary ---
Author Organization [employer] ([place], [place], [place], [place]) Address [address] [place] [address] Care Team Providers Care Armored Cable Machine Operator Name Role Phone Niranjan Mccarty MD Primary Care Provider [phone] Encounter Details Date Type Department Care Team (Late st Contact Info) Description 10/11/2019 Transcribed Document [facility] [place] [address] ProviderAkash MD [address] [place] [phone] Social History Tobacco Use Types Packs/Day Years Used Date Smoking Tobacco: Never Assessed Comments Unknown Sex and Gender Information Value Date Recorded Sex Assigned at Not on file Legal Sex Female 1:32 PM CDT Gender Identity Not on file Sexual Orientation Not on file documented as of this encounter Miscellaneous Notes * Cerner Conversion Note - Akash Vega MD - 10/11/2019 8:37 AM SLABBING MACHINE OPERATOR Patient: TRAN PEGUERO Age: 83 Years Sex: [...] 10/11/2019 04:25 EST Electronically signed by Cecy [facility] Conversion Firer Diesel Locomotive Cerner at 03/07/2023 1:25 PM CDT documented in this encounter Plan of Treatment Upcoming Encounters Date Type Department Care Team (Late st Contact Info) Description 09/07/2025 10:45 AM EDT Office Visit [facility] Electrophysiology [address] [place] [address] Adrienne Dunn MD [address] [place] [address] [address] [place] [address] documented as of this encounter Visit Diagnoses Not on filedocumented in this encounter Care Teams Armored Cable Machine Operator Relationship Specialty Start Date End Date Niranjan Mccarty MD [address] [place] [address] PCP - General Adolescent Medicine 10/15/23 documented as of this encounter
--- OUTSIDE RECORDS SUMMARY | 2025-06-14 10:55 | XMS_ITS | Encounter Summary ---
Author Organization [employer] ([place], [place], [place], [place]) Address [address] [place] [address] Care Team Providers Care Fashion Designer Name Role Phone Niranjan Mccarty MD Primary Care Provider [phone] Encounter Details Date Type Department Care Team (Late st Contact Info) Description 10/11/2019 Transcribed Document [facility] [place] [facility] [place] [address] ProviderAkash MD [address] [place] [address] Social History Tobacco Use Types Packs/Day Years Used Date Smoking Tobacco: Never Assessed Comments Unknown Sex and Gender Information Value Date Recorded Sex Assigned at Not on file Legal Sex Female 1:32 PM CDT Gender Identity Not on file Sexual Orientation Not on file documented as of this encounter Miscellaneous Notes * Cerner Conversion Note - Historical ProviderMD - 10/11/2019 12:11 PM RESIDENTIAL PROPERTY CONSULTANT Attempt to Treat, PT Entered On: 10/11/2019 12:12 EST Performed On: 10/11/2019 12:11 EST by BECKY SHAH, PT Attempt to Treat Unable to Treat Due To : Acuity of Illness, Patient Unavailable Inability to Treat Comment : pt off the floor for a stress test. Will check back as time permits Notification : Discussed with BECKY Busch RN, PT - 10/11/2019 12:11 EST Electronically signed by Cecy [facility] Conversion Lap Winding Machine Operator Cerner at 03/07/2023 1:24 PM CDT documented in this encounter Plan of Treatment Upcoming Encounters Date Type Department Care Team (Late st Contact Info) Description 09/07/2025 10:45 AM EDT Office Visit [facility] Electrophysiology [address] [place] [address] Adrienne Dunn MD [address] [facility] [address] [place], [place] [id number] documented as of this encounter Visit Diagnoses Not on filedocumented in this encounter Care Teams Fashion Designer Relationship Specialty Start Date End Date Niranjan Mccarty MD [address] [place] [address] PCP - General Adolescent Medicine 10/15/23 documented as of this encounter
--- OUTSIDE RECORDS SUMMARY | 2025-06-14 10:55 | XMS_ITS | Encounter Summary ---
Author Organization [employer] ([place], [place], [place], [place]) Address [address] [place] [address] Care Team Providers Care Fine Arts Packer Name Role Phone Niranjan Mccarty MD Primary Care Provider [phone] Encounter Details Date Type Department Care Team (Late st Contact Info) Description 10/11/2019 Transcribed Document [facility] [place] Family Medicine [facility] [place] [address] ProviderAkash MD [address] [place] [id number] Social History Tobacco Use Types Packs/Day Years Used Date Smoking Tobacco: Never Assessed Comments Unknown Sex and Gender Information Value Date Recorded Sex Assigned at Not on file Legal Sex Female 1:32 PM CDT Gender Identity Not on file Sexual Orientation Not on file documented as of this encounter Miscellaneous Notes * Cerner Conversion Note - Akash Vega MD - 10/11/2019 9:21 AM PUBLIC HEALTH TECHNICIAN Patient: TRAN PEGUERO Age: 83 years Sex: [...] Description 09/07/2025 10:45 AM EDT Office Visit [facility] Electrophysiology [address] [place] [address] Adrienne Dunn MD [address] [place] [address] [address] [place] [address] documented as of this encounter Visit Diagnoses Not on filedocumented in this encounter Care Teams Fine Arts Packer Relationship Specialty Start Date End Date Niranjan Mccarty MD [address] [place] [address] PCP - General Adolescent Medicine 10/15/23 documented as of this encounter
--- OUTSIDE RECORDS SUMMARY | 2025-06-14 10:55 | XMS_ITS | Encounter Summary ---
Author Organization [employer] ([place], [place], [place], [place]) Address [address] [place] [address] Care Team Providers Care Visual And Stock Associate Name Role Phone Niranjan Mccarty MD Primary Care Provider [phone] Encounter Details Date Type Department Care Team (Late st Contact Info) Description 10/11/2019 Transcribed Document [facility] Cardiology [address] [place] [address] [place] [address] [place] [address] [address] [place] [address] Social History Tobacco Use Types Packs/Day Years [...] MD-CAR Basic Information PCP: NIRANJAN MORRIS MD Software Development Manager: Cole SAMUEL Subjective no chest pain. Health [...] (OCT 10 17:51) Resp Rate 18 (OCT 11:07) 18 (OCT 10 15:08) H 24 (OCT 10:) SBP 110 (OCT 11 06:07) 110 (OCT 11 06:07) H 166 (OCT 10:00) DBP 62 (OCT 11 06:07) 62 (OCT 11 06:07) 86 (OCT 10 22:00) MAP 79 (OCT 11:) 79 (OCT 10:) 139 (OCT 10:) SpO2 97 (OCT 11:00) 96 (OCT 10 15:08) 100 (OCT 10 [...] of motion, Normal strength. Integumentary: Warm, Dry, [place]. Neurologic: Alert, Oriented. Psychiatric: Cooperative, Appropriate mood [...] Description 09/07/2025 10:45 AM EDT Office Visit [facility] Electrophysiology [address] [place] [address] Adrienne Dunn MD [address] [facility] [address] [place] [address] documented as of this encounter Visit Diagnoses Not on filedocumented in this encounter Care Teams Visual And Stock Associate Relationship Specialty Start Date End Date Niranjan Mccarty MD [address] [place] [address] PCP - General Adolescent Medicine 10/15/23 documented as of this encounter
--- OUTSIDE RECORDS SUMMARY | 2025-06-14 10:55 | XMS_ITS | Encounter Summary ---
Author Organization [employer] ([place], [place], [place], [place]) Address [address] [place] [address] Care Team Providers Care Medical Record Librarian Name Role Phone Niranjan Mccarty MD Primary Care Provider [phone] Encounter Details Date Type Department Care Team (Late st Contact Info) Description 10/10/2019 Transcribed Document [facility] [place] Family Medicine [address] [place] [address] ProviderAkash MD [address] [place], [place] [address] Social History Tobacco Use Types Packs/Day Years Used Date Smoking Tobacco: Never Assessed Comments Unknown Sex and Gender Information Value Date Recorded Sex Assigned at Not on file Legal Sex Female 1:32 PM CDT Gender Identity Not on file Sexual Orientation Not on file documented as of this encounter Miscellaneous Notes * Cerner Conversion Note - Akash ProviderMD - 10/10/2019 9:00 AM LINUX VMWARE ADMINISTRATOR Pain Assessment Entered On: 10/10/2019 12:45 EST [...] the text rendition version of the form. Electronically signed by Sherri Sam Conversion Customer Contact Sales Associate Cerner at 03/07/2023 1:51 PM CDT documented in this encounter Plan of Treatment Upcoming Encounters Date Type Department Care Team (Late st Contact Info) Description 09/07/2025 10:45 AM EDT Office Visit [facility] Electrophysiology [address] [place] [address] Adrienne Dunn MD [address] [place] [address] [address] [place] [address] documented as of this encounter Visit Diagnoses Not on filedocumented in this encounter Care Teams Medical Record Librarian Relationship Specialty Start Date End Date Niranjan Mccarty MD [address] [place] [address] PCP - General Adolescent Medicine 10/15/23 documented as of this encounter
--- OUTSIDE RECORDS SUMMARY | 2025-06-14 10:55 | XMS_ITS | Encounter Summary ---
Author Organization [employer] ([place], [place], [place], [place]) Address [address] [place] [address] Care Team Providers Care Personal Fitness Manager Name Role Phone Niranjan Mccarty MD Primary Care Provider [phone] Encounter Details Date Type Department Care Team (Late st Contact Info) Description 10/09/2019 Transcribed Document [facility] Medicine [address] [place] [address] ProviderAkash MD [address] [place] [address] Social History Tobacco Use Types Packs/Day Years Used Date Smoking Tobacco: Never Assessed Comments Unknown Sex and Gender Information Value Date Recorded Sex Assigned at Not on file Legal Sex Female 1:32 PM CDT Gender Identity Not on file Sexual Orientation Not on file documented as of this encounter Miscellaneous Notes * Cerner Conversion Note - Akash Vega MD - 10/09/2019 9:00 PM PAY STATION ATTENDANT Admission History, Adult Entered On: 10/09/2019 21:02 EST Performed On: 10/09/2019 21:00 EST by MEKA MANSFIELD RN Height and Weight, Clinical Dosing Height Source : Stated Height Entry Format : [place] Height, Feet : 5 ft(Converted to: 152 cm, 60 Inch) Height, Inches : 5 Inch(Converted to: 0 ft 5 Inch, 12.70 cm) Clinical Height : 165.1 cm Weight Source : Bed scale Weight Entry Format : [place] Clinical Dosing Weight : 65.51 kg Weight, Pounds : 144 lb Weight, Ounces : 2 oz Body Surface Area (BSA) : 1.72 m2 Body Mass Index : 24 kg/m2 [place] Body Weight : 57 kg MEKA MANSFIELD RN - 10/09/2019 21:00 EST Infectious Disease History Infectious Disease History : Chicken pox/Shingles, Influenza, Measles, Scarlet fever Active Surveillance Screen Assessment : Pt transferred from SNF, LTC, [facility], or rehab hospital Active Surveillance Screen Positive [...] Description 09/07/2025 10:45 AM EDT Office Visit [facility] Electrophysiology [address] [place] [phone] Adrienne Dunn MD [address] [facility] [address] [place] [address] documented as of this encounter Visit Diagnoses Not on filedocumented in this encounter Care Teams Personal Fitness Manager Relationship Specialty Start Date End Date Niranjan Mccarty MD [address] [place] [address] PCP - General Adolescent Medicine 10/15/23 documented as of this encounter
--- OUTSIDE RECORDS SUMMARY | 2025-06-14 10:55 | XMS_ITS | Encounter Summary ---
Author Organization [employer] ([place], [place], [place], [place]) Address [address] [place] [address] Care Team Providers Care Scribing Machine Operator Name Role Phone Niranjan Mccarty MD Primary Care Provider [phone] Encounter Details Date Type Department Care Team (Late st Contact Info) Description 10/09/2019 Transcribed Document [facility] [address] ProviderAkash MD [address] [place] [address] Social History Tobacco Use Types Packs/Day Years Used Date Smoking Tobacco: Never Assessed Comments Unknown Sex and Gender Information Value Date Recorded Sex Assigned at Not on file Legal Sex Female 1:32 PM CDT Gender Identity Not on file Sexual Orientation Not on file documented as of this encounter Miscellaneous Notes * Cerner Conversion Note - Akash Vega MD - 10/09/2019 9:37 PM MENTAL HEALTH PROGRAM MANAGER Pain Assessment Entered On: 10/09/2019 23:44 EST Performed On: 10/09/2019 23:54 EST by MEKA MANSFIELD RN Intervention Information: traMADol Performed by MEKA MANSFIELD RN on 10/09/2019 22:54:00 EST traMADol,50mg Oral Pain Assessment Pain Assessment : Follow-up assessment Pain Improved by Intervention : Yes MEKA MANSFIELD RN - 10/09/2019 23:43 EST Electronically signed by Cecy [facility] Conversion Talent Agent Cerner at 03/07/2023 1:55 PM CDT documented in this encounter Plan of Treatment Upcoming Encounters Date Type Department Care Team (Late st Contact Info) Description 09/07/2025 10:45 AM EDT Office Visit [facility] Electrophysiology [address] [place] [address] Adrienne Dunn MD [address] [facility] [address] [place], [place] [id number] documented as of this encounter Visit Diagnoses Not on filedocumented in this encounter Care Teams Scribing Machine Operator Relationship Specialty Start Date End Date Niranjan Mccarty MD [address] [place] [address] PCP - General Adolescent Medicine 10/15/23 documented as of this encounter
--- OUTSIDE RECORDS SUMMARY | 2025-06-14 10:55 | XMS_ITS | Encounter Summary ---
Author Organization [employer] ([place], [place], [place], [place]) Address [address] [place] [address] Care Team Providers Care Axle Polisher Name Role Phone Niranjan Mccarty MD Primary Care Provider [phone] Encounter Details Date Type Department Care Team (Late st Contact Info) Description 10/12/2019 Transcribed Document [facility] [address] [place] [address] ProviderAkash MD [address] [place] [address] Social History Tobacco Use Types Packs/Day [...] Akash Vega MD - 10/12/2019 5:15 PM ROTOR WINDER [facility] [place], [place] [phone] TRAN PEGUERO KELLY :1935 Visit Time:10/09/2019 Your Visit Summary Your [...] Call for follow up appointment Where: [address] [facility] [address] [place] [address]- Follow Up with VIRY ESTRADA MD-CAR When Within 1 to 2 weeks Comments Call for follow up appointment Where: [address] [facility] [address] [place] [address]- Follow Up with NIRANJAN MORRIS MD-[facility] When Within 2 to 4 weeks Where: [address] Warfarin Instructions Indication for Warfarin Anticoagulation: [...] you start to feel better. ??? Take zpxh-hzz-vwutgvj and prescription medicines only as told by [...] 04/21/2009 Document Revised: 07/28/2017 Document Reviewed: 07/28/2017 [employer] Interactive Patient Education ?? 2019 [employer]. Emergency Awareness and Preventative Care STROKE is [...] Assistance with quitting is available by contacting 7-927-KACE-NOW. This is a free resource providing counseling, [...] range between ( 0.0 and 7.0 ) [place] #: 0.75 K/uL -- Normal range between ( 0.16 and 1.00 ) Eos #: 0.20 x10(3)/uL -- Normal range between ( 0.00 and 0.80 ) [place] %: 10.3 % -- Normal range between [...] between ( 0.0 and 3.2 ) Patient Name:TRAN PEGUERO I have received and understand this information and was given the opportunity to ask questions. Patient/Programmer Developer Name: Patient/Programmer Developer Signature: Relationship to Patient: Clinician/Hospital Programmer Developer Signature: Date: documented in this encounter Plan of Treatment Upcoming Encounters Date Type Department Care Team (Late st Contact Info) Description 09/07/2025 10:45 AM EDT Office Visit [facility] Electrophysiology [address] [place] [address] Adrienne Dunn MD [address] [facility] [address] [place] [phone] documented as of this encounter Visit Diagnoses Not on filedocumented in this encounter Care Teams Axle Polisher Relationship Specialty Start Date End Date Niranjan Mccarty MD [address] [place] [address] PCP - General Adolescent Medicine 10/15/23 documented as of this encounter
--- OUTSIDE RECORDS SUMMARY | 2025-06-14 10:55 | XMS_ITS | Encounter Summary ---
Author Organization [employer] ([place], [place], [place], [place]) Address [address] [place] [address] Care Team Providers Care Clinical Nurse Name Role Phone Niranjan Mccarty MD Primary Care Provider [phone] Encounter Details Date Type Department Care Team (Late st Contact Info) Description 10/12/2019 Transcribed Document [facility] [place] Family [place] [facility] [place] [address] ProviderAkash MD [address] [place] [id number] Social History Tobacco Use Types Packs/Day Years Used Date Smoking Tobacco: Never Assessed Comments Unknown Sex and Gender Information Value Date Recorded Sex Assigned at Not on file Legal Sex Female 1:32 PM CDT Gender Identity Not on file Sexual Orientation Not on file documented as of this encounter Miscellaneous Notes * Cerner Conversion Note - Akash Vega MD - 10/12/2019 3:47 PM MASTER AT ARMS Final Discharge Planning Entered On: 10/12/2019 15:47 [...] : Yes Discharge To Care Management : Home/Residential/Long Term or Self Care -01 CATHERINE LOZANO RN-Care Management - 10/12/2019 15:47 EST Final Narrative Note Final Narrative Note : Pt to be discharged today w/o needs for CM to address, and family transporting CATHERINE LOZANO RN-Care Management - 10/12/2019 15:47 EST Electronically signed by [facility] Conversion Die Maker Trim Cerner at 03/07/2023 1:55 PM CDT documented in this encounter Plan of Treatment Upcoming Encounters Date Type Department Care Team (Late st Contact Info) Description 09/07/2025 10:45 AM EDT Office Visit [facility] Electrophysiology [address] [place] [address] Adrienne Dunn MD [address] [place] [address] [address] [place] [phone] documented as of this encounter Visit Diagnoses Not on filedocumented in this encounter Care Teams Clinical Nurse Relationship Specialty Start Date End Date Niranjan Mccarty MD [address] [place] [address] PCP - General Adolescent Medicine 10/15/23 documented as of this encounter
--- OUTSIDE RECORDS SUMMARY | 2025-06-14 10:55 | XMS_ITS | Encounter Summary ---
Author Organization [employer] ([place], [place], [place], [place]) Address [address] [place] [address] Care Team Providers Care Computer Engineering Technologist Name Role Phone Niranjan Mccarty MD Primary Care Provider [phone] Encounter Details Date Type Department Care Team (Late st Contact Info) Description 10/12/2019 Transcribed Document [facility] Family Medicine [place] [address] ProviderAkash MD [address] [place], [place] [address] Social History Tobacco Use Types Packs/Day Years Used Date Smoking Tobacco: Never Assessed Comments Unknown Sex and Gender Information Value Date Recorded Sex Assigned at Not on file Legal Sex Female 1:32 PM CDT Gender Identity Not on file Sexual Orientation Not on file documented as of this encounter Miscellaneous Notes * Cerner Conversion Note - Akash Vega MD - 10/12/2019 9:40 AM MARKETING RECRUITER Patient Education Materials Follows: Nonspecific Chest Pain [...] you start to feel better. ??? Take mesa-hwp-iceszqi and prescription medicines only as told by [...] 04/21/2009 Document Revised: 07/28/2017 Document Reviewed: 07/28/2017 [employer] Interactive Patient Education ? 2019 [employer] documented in this encounter Plan of Treatment Upcoming Encounters Date Type Department Care Team (Late st Contact Info) Description 09/07/2025 10:45 AM EDT Office Visit [facility] Electrophysiology [address] [place], [place] [phone] Adrienne Dunn MD [address] [place] [address] [address] [place] [address] documented as of this encounter Visit Diagnoses Not on filedocumented in this encounter Care Teams Computer Engineering Technologist Relationship Specialty Start Date End Date Niranjan Mccarty MD [address] [place] [address] PCP - General Adolescent Medicine 10/15/23 documented as of this encounter
--- OUTSIDE RECORDS SUMMARY | 2025-06-14 10:55 | XMS_ITS | Encounter Summary ---
Author Organization [employer] ([place], [place], [place], [place]) Address [address] [place] [address] Care Team Providers Care Equipment Processor Name Role Phone Niranjan Mccarty MD Primary Care Provider [phone] Encounter Details Date Type Department Care Team (Late st Contact Info) Description 10/09/2019 Transcribed Document [facility] [place] Family Medicine [facility] [place] [address] ProviderAkash MD [address] [place] [address] Social History Tobacco Use Types Packs/Day Years Used Date Smoking Tobacco: Never Assessed Comments Unknown Sex and Gender Information Value Date Recorded Sex Assigned at Not on file Legal Sex Female 1:32 PM CDT Gender Identity Not on file Sexual Orientation Not on file documented as of this encounter Miscellaneous Notes * Cerner Conversion Note - Akash Vega MD - 10/09/2019 9:22 PM RN PLASMA CENTER Patient: TRAN PEGUERO Age: 83 Years Sex: Female : 1935 Chief Complaint Chest pain Primary Care Provider NIRANJAN MORRIS MD-[facility] History of Present Illness Patient is an 83-year-old female with past medical history of hypertension, hyperlipidemia, atrial fibrillation, SSS status post pacemaker placement, chronic anticoagulation with Coumadin, COPD on home oxygen, gastric ulcer who presented to [facility] ER today with complaints of chest [...] any, fever or chills. Lab workup at [facility] showed WBC count 5.6, hemoglobin 11.7, [...] significant chest pain. Patient requested transfer to [facility] to be evaluated by her knife setter assembler here. Review of Systems Pertinent positives and [...] Description 09/07/2025 10:45 AM EDT Office Visit [address] [address] Adrienne Dunn MD [address] [facility] [address] [place], [place] [phone] documented as of this encounter Visit Diagnoses Not on filedocumented in this encounter Care Teams Equipment Processor Relationship Specialty Start Date End Date Niranjan Mccarty MD [address] [place] [address] PCP - General Adolescent Medicine 10/15/23 documented as of this encounter
--- OUTSIDE RECORDS SUMMARY | 2025-06-14 10:55 | XMS_ITS | Encounter Summary ---
Author Organization [employer] ([place], [place], [place], [place]) Address [address] [place] [address] Care Team Providers Care Play Reader Name Role Phone Niranjan Mccarty MD Primary Care Provider [phone] Encounter Details Date Type Department Care Team (Late st Contact Info) Description 10/10/2019 Transcribed Document [facility] [place] Family Medicine [address] [place] [address] ProviderAkash MD [address] [place], [place] [id number] Social History Tobacco Use Types Packs/Day Years Used Date Smoking Tobacco: Never Assessed Comments Unknown Sex and Gender Information Value Date Recorded Sex Assigned at Not on file Legal Sex Female 1:32 PM CDT Gender Identity Not on file Sexual Orientation Not on file documented as of this encounter Miscellaneous Notes * Cerner Conversion Note - Akash Vega MD - 10/10/2019 10:57 AM CATCHER HELPER Height and Weight, Routine Entered On: 10/11/2019 4:17 EST Performed On: 10/10/2019 10:57 EST by MEKA MANSFIELD RN Height and Weight, Routine Routine Weight Source : Standing scale Routine Weight Entry Format : [place] Routine Weight, Pounds : 141 lb Routine Weight, Ounces : 7 oz Routine Weight Calculation : 64.29 kg Height Source : Stated Height Entry Format : [place] Height, Feet : 5 ft Height, Inches [...] Office Visit [facility] Electrophysiology [address] [place] [address] Adrienne Dunn MD [address] [place] [address] [address] [place] [phone] documented as of this encounter Visit Diagnoses Not on filedocumented in this encounter Care Teams Play Reader Relationship Specialty Start Date End Date Niranjan Mccarty MD [address] [place] [address] PCP - General Adolescent Medicine 10/15/23 documented as of this encounter
--- OUTSIDE RECORDS SUMMARY | 2025-06-14 10:55 | XMS_ITS | Encounter Summary ---
Author Organization [employer] ([place], [place], [place], [place]) Address [address] [place] [address] Care Team Providers Care Cook Helper Meat Name Role Phone Niranjan Mccarty MD Primary Care Provider [phone] Encounter Details Date Type Department Care Team (Late st Contact Info) Description 10/09/2019 Transcribed Document [facility] [facility] [place] [address] ProviderAkash MD [address] [place] [phone] Social History Tobacco Use Types Packs/Day Years Used Date Smoking Tobacco: Never Assessed Comments Unknown Sex and Gender Information Value Date Recorded Sex Assigned at Not on file Legal Sex Female 1:32 PM CDT Gender Identity Not on file Sexual Orientation Not on file documented as of this encounter Miscellaneous Notes * Cerner Conversion Note - Akash Vega MD - 10/09/2019 9:18 PM GENERATOR REPAIRER Evaluation, Physical Therapy Entered On: 10/10/2019 10:57 [...] : Gait belt, Walker, front wheel VAN MCKEON PT - 10/10/2019 10:39 EST Cognition Assessment, PT Orientation : Oriented x 4 VAN MCKEON PT - 10/10/2019 10:39 EST [facility] Topics Physical Therapy Education Grid Role of Physical Therapy : Verbalizes understanding VAN MCKEON PT - 10/10/2019 10:39 EST Indication Assesessment, [...] training, Safety education, Therapeutic exercises, Transfer training VAN MCKEON, PT - 10/10/2019 10:39 EST Internet And E Business Project Manager Goals Mobility/Bed Mobility LTG PT Grid Goal #1 Activity : Supine to sit Assist : Independent, complete Date to Meet : 10/24/2019 EST Goal Status : Intial Goal VAN MCKEON, PT - 10/10/2019 10:39 EST Ambulation LTG [...] with small steps. Patient also transfered [place] [facility] [place] with supervision and required [...] improve in these areas and return to [facility]. Plan for Treatment : Continue POC. VAN [...] VAN MCKEON, PT - 10/10/2019 10:39 EST [place] PT Charges PT Therap. Exercise 15 min : 1 PT Ther Activities Ea 15 Min : 1 PT Eval Moderate Complexity : 1 VAN MCKEON, PT - 10/10/2019 10:39 EST Electronically signed by [facility] Conversion Delivery Merchandiser Cerner at 03/07/2023 1:23 PM CDT documented in this encounter Plan of Treatment Upcoming Encounters Date Type Department Care Team (Late st Contact Info) Description 09/07/2025 10:45 AM EDT Office Visit [facility] Electrophysiology [address] [place] [address] Adrienne Dunn MD [address] [facility] [address] [place] [address] documented as of this encounter Visit Diagnoses Not on filedocumented in this encounter Care Teams Cook Helper Meat Relationship Specialty Start Date End Date Niranjan Mccarty MD [address] [place] [address] PCP - General Adolescent Medicine 10/15/23 documented as of this encounter
--- OUTSIDE RECORDS SUMMARY | 2025-06-14 10:55 | XMS_ITS | Encounter Summary ---
Author Organization [employer] ([place], [place], [place], [place]) Address [address] [place] [address] Care Team Providers Care Attending Urologist Name Role Phone Niranjan Mccarty MD Primary Care Provider [phone] Encounter Details Date Type Department Care Team (Late st Contact Info) Description 10/13/2019 Transcribed Document [facility] [place] [address] ProviderAksah MD [address] [place] [phone] Social History Tobacco Use Types Packs/Day Years Used Date Smoking Tobacco: Never Assessed Comments Unknown Sex and Gender Information Value Date Recorded Sex Assigned at Not on file Legal Sex Female 1:32 PM CDT Gender Identity Not on file Sexual Orientation Not on file documented as of this encounter Miscellaneous Notes * Cerner Conversion Note - Historical ProviderMD - 10/13/2019 8:26 AM DANCE ARTIST Discharge Summary, PT Entered On: 10/13/2019 8:27 [...] WILLIE GOLDEN, PT - 10/13/2019 8:26 EST Public Improvement Inspector Goals Mobility/Bed Mobility LTG PT Grid Goal [...] - 10/13/2019 8:26 EST Electronically signed by [facility] Conversion Form Setter Cerner at 03/07/2023 1:24 PM CDT documented in this encounter Plan of Treatment Upcoming Encounters Date Type Department Care Team (Late st Contact Info) Description 09/07/2025 10:45 AM EDT Office Visit [facility] Electrophysiology [address] [place], [place] [phone] Adrienne Dunn MD [address] [place] [address] [address] [place] [address] documented as of this encounter Visit Diagnoses Not on filedocumented in this encounter Care Teams Attending Urologist Relationship Specialty Start Date End Date Niranjan Mccarty MD [address] [place] [address] PCP - General Adolescent Medicine 10/15/23 documented as of this encounter
--- OUTSIDE RECORDS SUMMARY | 2025-06-14 10:55 | XMS_ITS | Encounter Summary ---
Author Organization [employer] ([place], [place], [place], [place]) Address [address] [place] [address] Care Team Providers Care Chimney Sweeper Name Role Phone Niranjan Mccarty MD Primary Care Provider [phone] Encounter Details Date Type Department Care Team (Late st Contact Info) Description 10/12/2019 Transcribed Document [facility] [address] ProviderAkash MD [address] [place] [phone] Social History Tobacco Use Types Packs/Day Years Used Date Smoking Tobacco: Never Assessed Comments Unknown Sex and Gender Information Value Date Recorded Sex Assigned at Not on file Legal Sex Female 1:32 PM CDT Gender Identity Not on file Sexual Orientation Not on file documented as of this encounter Miscellaneous Notes * Cerner Conversion Note - Akash Veag MD - 10/12/2019 8:49 AM VISCOSITY INSPECTOR Patient: TRAN PEGUERO Age: 83 years Sex: [...] Description 09/07/2025 10:45 AM EDT Office Visit [facility] Electrophysiology [address] [place] [address] Adrienne Dnun MD [address] [facility] [address] [place] [address] documented as of this encounter Visit Diagnoses Not on filedocumented in this encounter Care Teams Chimney Sweeper Relationship Specialty Start Date End Date Niranjan Mccarty MD [address] [place] [address] PCP - General Adolescent Medicine 10/15/23 documented as of this encounter
--- OUTSIDE RECORDS SUMMARY | 2025-06-14 10:55 | XMS_ITS | Encounter Summary ---
Author Organization [employer] ([place], [place], [place], [place]) Address [address] [place] [address] Care Team Providers Care Compound Filler Name Role Phone Niranjan Mccarty MD Primary Care Provider [phone] Encounter Details Date Type Department Care Team (Late st Contact Info) Description 10/12/2019 Transcribed Document [facility] Cardiology [address] [place] [address] Constantine Galvan MD [address] [place] [address] [address] [place] [address] Social History Tobacco Use Types Packs/Day Years [...] Normal study. 2. Ejection fraction is 60%. /[id number] MD POLINA Carvalho/AQ / POLINA / SIMAL /[id number] documented in this encounter Plan of Treatment Upcoming Encounters Date Type Department Care Team (Late st Contact Info) Description 09/07/2025 10:45 AM EDT Office Visit [facility] Electrophysiology [address] [place], [place] [phone] Adrienne Dunn MD [address] [place] [address] [address] [place] [address] documented as of this encounter Visit Diagnoses Not on filedocumented in this encounter Care Teams Compound Filler Relationship Specialty Start Date End Date Niranjan Mccarty MD [address] [place] [address] PCP - General Adolescent Medicine 10/15/23 documented as of this encounter
--- OUTSIDE RECORDS SUMMARY | 2025-06-14 10:55 | XMS_ITS | Encounter Summary ---
Author Organization [employer] ([place], [place], [place], [place]) Address [address] [place] [address] Care Team Providers Care Communication Professor Name Role Phone Niranjan Mccarty MD Primary Care Provider [phone] Encounter Details Date Type Department Care Team (Late st Contact Info) Description 10/09/2019 Transcribed Document [facility] Family Medicine [facility] [place] [address] ProviderAkash MD [address] [place] [id number] Social History Tobacco Use Types Packs/Day Years Used Date Smoking Tobacco: Never Assessed Comments Unknown Sex and Gender Information Value Date Recorded Sex Assigned at Not on file Legal Sex Female 1:32 PM CDT Gender Identity Not on file Sexual Orientation Not on file documented as of this encounter Miscellaneous Notes * Cerner Conversion Note - Akash Vega MD - 10/09/2019 9:20 PM STATION JAILER Consult Phone Call Documentation Entered On: 10/10/2019 10:25 EST Performed On: 10/09/2019 21:20 EST by Delma Cox, Replaced By [facility] Coord Phone Call for Consults Consult Phone Call/Page Attempt : First call Consult Reason : chest pain, AFIB Physician Requesting Consult : CINTHIA ENNIS MD Physician Requested for Consult : VIRY ESTRADA MD-CAR Provider Service Notified Name : Cardiology Physician Covering for Consult : zafar Date and Time Call Returned : 10/10/2019 10:25 EST Consult, Additional Information : spoke to [facility] Delma Cox, Replaced By [facility] Coord - 10/10/2019 10:13 EST Electronically signed by Cecy, [facility] Conversion Beach Attendant Cerner at 03/07/2023 1:41 PM CDT documented in this encounter Plan of Treatment Upcoming Encounters Date Type Department Care Team (Late st Contact Info) Description 09/07/2025 10:45 AM EDT Office Visit [facility] Electrophysiology [address] [place] [address] [place] [address] [place] [address] [address] [place] [phone] documented as of this encounter Visit Diagnoses Not on filedocumented in this encounter Care Teams Communication Professor Relationship Specialty Start Date End Date Niranjan Mccarty MD [address] [place] [address] PCP - General Adolescent Medicine 10/15/23 documented as of this encounter
--- OUTSIDE RECORDS SUMMARY | 2025-06-14 10:55 | XMS_ITS | Encounter Summary ---
Author Organization [employer] ([place], [place], [place], [place]) Address [address] [place] [address] Care Team Providers Care Shirt Sorter Name Role Phone Niranjan Mccarty MD Primary Care Provider [phone] Encounter Details Date Type Department Care Team (Late st Contact Info) Description 10/11/2019 Transcribed Document [facility] Family Medicine [facility] [place] [address] ProviderAkash MD [address] [place] [address] Social History Tobacco Use Types Packs/Day Years Used Date Smoking Tobacco: Never Assessed Comments Unknown Sex and Gender Information Value Date Recorded Sex Assigned at Not on file Legal Sex Female 1:32 PM CDT Gender Identity Not on file Sexual Orientation Not on file documented as of this encounter Miscellaneous Notes * Cerner Conversion Note - Akash Vega MD - 10/11/2019 9:00 PM SENIOR TRAINER Pain Assessment Entered On: 10/12/2019 6:31 EST Performed On: 10/11/2019 23:11 EST by MAXX BARRERA, RN Intervention Information: traMADol Performed by MAXX BARRERA RN on 10/11/2019 22:11:00 EST traMADol,50mg Oral Pain Assessment Pain Assessment : Follow-up assessment Pain Scale Goal : 4 Pain Improved by Intervention : Yes MAXX BARRERA, RN - 10/12/2019 6:31 EST Electronically signed by Cecy [facility] Conversion Patient Admitting Representative Cerner at 03/07/2023 1:48 PM CDT documented in this encounter Plan of Treatment Upcoming Encounters Date Type Department Care Team (Late st Contact Info) Description 09/07/2025 10:45 AM EDT Office Visit [facility] Electrophysiology [address] [place] [address] Adrienne Dunn MD [address] [facility] [address] [place], [place] [phone] documented as of this encounter Visit Diagnoses Not on filedocumented in this encounter Care Teams Shirt Sorter Relationship Specialty Start Date End Date Niranjan Mccarty MD [address] [place] [address] PCP - General Adolescent Medicine 10/15/23 documented as of this encounter
--- OUTSIDE RECORDS SUMMARY | 2025-06-14 10:55 | XMS_ITS | Encounter Summary ---
Author Organization [employer] ([place], [place], [place], [place]) Address [address] [place] [address] Care Team Providers Care Technician Semiconductor Development Name Role Phone Niranjan Mccarty MD Primary Care Provider [phone] Encounter Details Date Type Department Care Team (Late st Contact Info) Description 10/10/2019 Transcribed Document [facility] Family Medicine [facility] [place] [address] ProviderAkash MD [address] [place] [id number] Social History Tobacco Use Types Packs/Day Years Used Date Smoking Tobacco: Never Assessed Comments Unknown Sex and Gender Information Value Date Recorded Sex Assigned at Not on file Legal Sex Female 1:32 PM CDT Gender Identity Not on file Sexual Orientation Not on file documented as of this encounter Miscellaneous Notes * Cerner Conversion Note - Akash Vega MD - 10/10/2019 8:35 AM TECH INTERN Patient: TRAN PEGUERO Age: 83 Years Sex: [...] Lymph # 1.79 x10(3)/uL 10/09/2019 21:53 EST [place] % 10.3 % (High) 10/10/2019 02:57 EST [place] % 8.0 % 10/09/2019 21:53 EST [place] # 0.75 K/uL 10/10/2019 02:57 EST [place] # 0.59 K/uL 10/09/2019 21:53 EST Eos [...] VLDL Calculation 19.4 mg/dL 10/10/2019 02:57 EST Electronically signed by Interface, [facility] Conversion Dual Rate Supervisor Cerner at 03/07/2023 1:54 PM CDT documented in this encounter Plan of Treatment Upcoming Encounters Date Type Department Care Team (Late st Contact Info) Description 09/07/2025 10:45 AM EDT Office Visit [facility] Electrophysiology [address] [place] [address] Adrienne Dunn MD [address] [place] [address] [address] [place] [address] documented as of this encounter Visit Diagnoses Not on filedocumented in this encounter Care Teams Technician Semiconductor Development Relationship Specialty Start Date End Date Niranjan Mccarty MD [address] [place] [address] PCP - General Adolescent Medicine 10/15/23 documented as of this encounter
--- OUTSIDE RECORDS SUMMARY | 2025-06-14 10:55 | XMS_ITS | Encounter Summary ---
Author Organization [employer] ([place], [place], [place], [place]) Address [address] [place] [address] Care Team Providers Care Fishing Rod Marker Name Role Phone Niranjan Mccarty MD Primary Care Provider [phone] Encounter Details Date Type Department Care Team (Late st Contact Info) Description 10/09/2019 Transcribed Document [facility] Family Medicine [facility] [place] [address] ProviderAkash MD [address] [place] [address] Social History Tobacco Use Types [...] - Akash ProviderMD - 10/09/2019 8:24 PM SUPERVISOR FRAME ASSEMBLY Admission History, Adult Entered On: 10/09/2019 21:47 [...] EST Functional Assessment Living Situation : Home SNOWDEN Hx Falls Immediate/Within 3 Months : No Current Home Treatments : None MEKA MANSFIELD RN - 10/09/2019 21:40 EST General Info Preferred Name : megha Legal Guardian : No Support Person/Patient Tractor Trailer Mechanic : Yes Support Person/Pt Rep Name : daughter- sherley MEKA MANSFIELD, PAPITO - 10/09/2019 21:40 EST Maya Garcia RN - 10/12/2019 10:14 EST Support Person/Pt Rep Contact Information : gordon [phone] Want Family/Rep/Phys Notified of Admit : No Emergency Contact #1 : Sandee Emergency Contact #1 Emergency Contact #1 Relationship : daughter Emergency Contact #2 : Dana Emergency Contact #2 Emergency Contact #2 Relationship : sister in law Information Obtained From : Patient Primary Language : Lebanese Preferred Communication Mode : Verbal Communication Barrier : None MEKA MANSFIELD RN - 10/09/2019 21:40 EST Fall Risk Scales ABCs Fall Injury Risk Identification : Age, Bones, Coagulation ABC Fall Injury Risk : Moderate to high injury risk Injury Moderate to High Risk Interventions : Transport methods appropriate to patient SNOWDEN Hx Falls Immediate/Within 3 Months : No Snowden Secondary Diagnosis : Yes SNOWDEN Use of Ambulatory Aid : Bed rest/Nurse assist SNOWDEN IV Therapy or IV Access : Yes Snowden Gait/Transferring : Weak Snowden Mental Status : Oriented to own ability Snowden Fall Risk Score : 45 SNOWDEN Fall Scale Risk Level : 25-45 Medium Risk [place] Fall Interventions : Adequate lighting, Assistive devices [...] Fall Risk Scale Calc Temp : 0 MEKA MANSFIELD RN - 10/09/2019 21:40 EST Health Histories [...] (Last Updated: 07/11/2018 20:18:12 EDT by BRAYAN ULNA RN) Height and Weight, Clinical Dosing Height Source : Stated Height Entry Format : Stanton Height, Feet : 5 ft(Converted to: 152 cm, 60 Inch) Height, Inches : 5 Inch(Converted to: 0 ft 5 Inch, 12.70 cm) Clinical Height : 165.1 cm Weight Source : Bed scale Weight Entry Format : Stanton Clinical Dosing Weight : 65.51 kg Weight, Pounds : 144 lb Weight, Ounces : 2 oz Body Surface Area (BSA) : 1.72 m2 Body Mass Index : 24 kg/m2 Weir Body Weight : 57 kg MEKA MANSFIELD [...] MEKA MANSFIELD RN - 10/09/2019 21:40 EST [place] Suicide Severity Rating Scale (C-SSRS) CSSRS Past [...] - 10/09/2019 21:40 EST Electronically signed by Cecy [facility] Conversion Supervisor Mold Yard Cerner at 03/07/2023 1:48 PM CDT documented in this encounter Plan of Treatment Upcoming Encounters Date Type Department Care Team (Late st Contact Info) Description 09/07/2025 10:45 AM EDT Office Visit [facility] Electrophysiology [address] [place] [address] [place] [address] [place] [address] [address] [place] [address] documented as of this encounter Visit Diagnoses Not on filedocumented in this encounter Care Teams Fishing Rod Marker Relationship Specialty Start Date End Date Niranjan Mccarty MD [address] [place] [address] PCP - General Adolescent Medicine 10/15/23 documented as of this encounter
--- OUTSIDE RECORDS SUMMARY | 2025-06-14 10:55 | XMS_ITS | Encounter Summary ---
Author Organization [employer] ([place], [place], [place], [place]) Address [address] [place] [address] Care Team Providers Care Passenger Agent Name Role Phone Niranjan Mccarty MD Primary Care Provider [phone] Encounter Details Date Type Department Care Team (Late st Contact Info) Description 10/09/2019 Transcribed Document [facility] Family Medicine [facility] [place] [address] ProviderAkash MD [address] [place] [address] Social History Tobacco Use Types Packs/Day Years Used Date Smoking Tobacco: Never Assessed Comments Unknown Sex and Gender Information Value Date Recorded Sex Assigned at Not on file Legal Sex Female 1:32 PM CDT Gender Identity Not on file Sexual Orientation Not on file documented as of this encounter Miscellaneous Notes * Cerner Conversion Note - Akash Vega MD - 10/09/2019 9:38 PM GREENS OR GROUNDS SUPERINTENDENT Education-Wound Care Entered On: 10/09/2019 23:43 EST Performed On: 10/09/2019 21:38 EST by MEKA MANSFIELD RN Teaching/Learning Assessment Barriers To Learning : None evident Individuals Taught : Patient Readiness to Learn : Cooperative Learning Style Preferences Patient : Verbal explanation Learning Style Preferences Family : Verbal explanation MEKA MANSFIELD RN - 10/09/2019 23:43 EST Electronically signed by Cecy [facility] Conversion Director Of Security Cerner at 03/07/2023 1:41 PM CDT documented in this encounter Plan of Treatment Upcoming Encounters Date Type Department Care Team (Late st Contact Info) Description 09/07/2025 10:45 AM EDT Office Visit [facility] Electrophysiology [address] [place] [phone] Adrienne Dunn MD [address] [facility] [address] [place], [place] [phone] documented as of this encounter Visit Diagnoses Not on filedocumented in this encounter Care Teams Passenger Agent Relationship Specialty Start Date End Date Niranjan Mccarty MD [address] [place] [address] PCP - General Adolescent Medicine 10/15/23 documented as of this encounter
--- OUTSIDE RECORDS SUMMARY | 2025-06-14 10:55 | XMS_ITS | Encounter Summary ---
Author Organization [employer] ([place], [place], [place], [place]) Address [address] [place] [address] Care Team Providers Care Professor Of Musicology Name Role Phone Niranjan Mccarty MD Primary Care Provider [phone] Encounter Details Date Type Department Care Team (Late st Contact Info) Description 10/09/2019 Transcribed Document [facility] [place] [place] Family Medicine [facility] [place] [address] ProviderAkash MD [address] [place] [address] Social History Tobacco Use Types Packs/Day Years Used Date Smoking Tobacco: Never Assessed Comments Unknown Sex and Gender Information Value Date Recorded Sex Assigned at Not on file Legal Sex Female 1:32 PM CDT Gender Identity Not on file Sexual Orientation Not on file documented as of this encounter Miscellaneous Notes * Cerner Conversion Note - Historical ProviderMD - 10/09/2019 9:18 PM SUPERINTENDENT FACTORY Education-(VTE) / (DVT) Entered On: 10/09/2019 23:43 EST Performed On: 10/09/2019 21:18 EST by MEKA MANSFIELD RN Teaching/Learning Assessment Barriers To Learning : None evident Individuals Taught : Patient Readiness to Learn : Cooperative Learning Style Preferences Patient : Verbal explanation Learning Style Preferences Family : Verbal explanation MEKA MANSFIELD RN - 10/09/2019 23:43 EST Electronically signed by Ccey [facility] Conversion Outboard Motor Tester Cerner at 03/07/2023 1:26 PM CDT documented in this encounter Plan of Treatment Upcoming Encounters Date Type Department Care Team (Late st Contact Info) Description 09/07/2025 10:45 AM EDT Office Visit [facility] Electrophysiology [address] [place] [phone] Adrienne Dunn MD [address] [facility] [address] [place] [address] documented as of this encounter Visit Diagnoses Not on filedocumented in this encounter Care Teams Professor Of Musicology Relationship Specialty Start Date End Date Niranjan Mccarty MD [address] [place] [address] PCP - General Adolescent Medicine 10/15/23 documented as of this encounter
--- OUTSIDE RECORDS SUMMARY | 2025-06-14 10:55 | XMS_ITS | Encounter Summary ---
Author Organization [employer] ([place], [place], [place], [place]) Address [address] [place] [address] Care Team Providers Care Home Health Caregiver Name Role Phone Niranjan Mccarty MD Primary Care Provider [phone] Encounter Details Date Type Department Care Team (Late st Contact Info) Description 10/11/2019 Transcribed Document [facility] Family Medicine [address] [place] [address] ProviderAkash MD [address] [place] [address] Social History Tobacco Use Types Packs/Day Years Used Date Smoking Tobacco: Never Assessed Comments Unknown Sex and Gender Information Value Date Recorded Sex Assigned at Not on file Legal Sex Female 1:32 PM CDT Gender Identity Not on file Sexual Orientation Not on file documented as of this encounter Miscellaneous Notes * Cerner Conversion Note - Akash ProviderMD - 10/11/2019 5:00 AM GROOMING ASSISTANT Chart Check - Review Order Profile Entered On: 10/11/2019 4:17 EST Performed On: 10/11/2019 5:00 EST by MEKA MANSFIELD RN Chart Check All Active Orders Reviewed : Yes MEKA MANSFIELD RN - 10/11/2019 4:17 EST documented in this encounter Plan of Treatment Upcoming Encounters Date Type Department Care Team (Late st Contact Info) Description 09/07/2025 10:45 AM EDT Office Visit [address] [address] Adrienne Dunn MD [address] [facility] [address] [place], [place] [phone] documented as of this encounter Visit Diagnoses Not on filedocumented in this encounter Care Teams Home Health Caregiver Relationship Specialty Start Date End Date Niranjan Mccarty MD [address] [place] [address] PCP - General Adolescent Medicine 10/15/23 documented as of this encounter
--- OUTSIDE RECORDS SUMMARY | 2025-06-14 10:55 | XMS_ITS | Encounter Summary ---
Author Organization [employer] ([place], [place], [place], [place]) Address [address] [place] [address] Care Team Providers Care Cath Lab Radiological Technologist Name Role Phone Niranjan Mccarty MD Primary Care Provider [phone] Encounter Details Date Type Department Care Team (Late st Contact Info) Description 10/12/2019 Transcribed Document [facility] [place] [address] ProviderAkash MD [address] [place], [place] [id number] Social History Tobacco Use Types Packs/Day Years Used Date Smoking Tobacco: Never Assessed Comments Unknown Sex and Gender Information Value Date Recorded Sex Assigned at Not on file Legal Sex Female 1:32 PM CDT Gender Identity Not on file Sexual Orientation Not on file documented as of this encounter Miscellaneous Notes * Cerner Conversion Note - Akash Vega MD - 10/12/2019 9:00 AM INFRASTRUCTURE ADMINISTRATOR Pain Assessment Entered On: 10/12/2019 11:21 EST [...] Description 09/07/2025 10:45 AM EDT Office Visit [address] [address] Adrienne Dunn MD [address] [place] [address] [address] [place] [phone] documented as of this encounter Visit Diagnoses Not on filedocumented in this encounter Care Teams Cath Lab Radiological Technologist Relationship Specialty Start Date End Date Niranjan Mccarty MD [address] [place] [address] PCP - General Adolescent Medicine 10/15/23 documented as of this encounter
--- OUTSIDE RECORDS SUMMARY | 2025-06-14 10:55 | XMS_ITS | Encounter Summary ---
Author Organization [employer] ([place], [place], [place], [place]) Address [address] [place] [address] Care Team Providers Care Plant Safety Engineer Name Role Phone Niranjan Mccarty MD Primary Care Provider [phone] Encounter Details Date Type Department Care Team (Late st Contact Info) Description 10/12/2019 Transcribed Document [facility] Family Medicine [place] [address] ProviderAkash MD [address] [place], [place] [address] Social History Tobacco Use Types Packs/Day Years Used Date Smoking Tobacco: Never Assessed Comments Unknown Sex and Gender Information Value Date Recorded Sex Assigned at Not on file Legal Sex Female 1:32 PM CDT Gender Identity Not on file Sexual Orientation Not on file documented as of this encounter Miscellaneous Notes * Cerner Conversion Note - Akash Vega MD - 10/12/2019 9:35 AM POKER IN Patient: TRAN PEGUERO Age: 83 years Sex: [...] home oxygen, gastric ulcer who presented to [facility] ER today with complaints of chest pain. [...] any, fever or chills. Lab workup at [facility] showed WBC count 5.6, hemoglobin 11.7, platelets [...] significant chest pain. Patient requested transfer to [facility] to be evaluated by her toggler here. She was admitted to telemetry. Troponin [...] Description 09/07/2025 10:45 AM EDT Office Visit [facility] Electrophysiology [address] [place] [phone] [place] [address] [place] [address] [address] [place] [address] documented as of this encounter Visit Diagnoses Not on filedocumented in this encounter Care Teams Plant Safety Engineer Relationship Specialty Start Date End Date Niranjan Mccarty MD [address] [place] [address] PCP - General Adolescent Medicine 10/15/23 documented as of this encounter
--- OUTSIDE RECORDS SUMMARY | 2025-06-14 10:55 | XMS_ITS | Encounter Summary ---
Author Organization [employer] ([place], [place], [place], [place]) Address [address] [place] [address] Care Team Providers Care Chief Of Field Operations Name Role Phone Niranjan Mccarty MD Primary Care Provider [phone] Encounter Details Date Type Department Care Team (Late st Contact Info) Description 10/12/2019 Transcribed Document [facility] Family Medicine [facility] [place] [address] ProviderAkash MD [address] [place] [phone] Social History Tobacco Use Types Packs/Day Years Used Date Smoking Tobacco: Never Assessed Comments Unknown Sex and Gender Information Value Date Recorded Sex Assigned at Not on file Legal Sex Female 1:32 PM CDT Gender Identity Not on file Sexual Orientation Not on file documented as of this encounter Miscellaneous Notes * Cerner Conversion Note - Akash Vega MD - 10/12/2019 6:20 PM BUSHWALKING GUIDE Nursing Discharge Summary Entered On: 10/12/2019 18:22 [...] - 10/12/2019 18:20 EST Electronically signed by [facility] Conversion Ekg Monitor Tech Cerner at 03/07/2023 1:46 PM CDT documented in this encounter Plan of Treatment Upcoming Encounters Date Type Department Care Team (Late st Contact Info) Description 09/07/2025 10:45 AM EDT Office Visit [facility] Electrophysiology [address] [place] [address] Adrienne Dunn MD [address] [place] [address] [address] [place] [phone] documented as of this encounter Visit Diagnoses Not on filedocumented in this encounter Care Teams Chief Of Field Operations Relationship Specialty Start Date End Date Niranjan Mccarty MD [address] [place] [address] PCP - General Adolescent Medicine 10/15/23 documented as of this encounter
--- OUTSIDE RECORDS SUMMARY | 2025-06-14 10:55 | XMS_ITS | Encounter Summary ---
Author Organization [employer] ([place], [place], [place], [place]) Address [address] [place] [address] Care Team Providers Care Learning Coach Name Role Phone Niranjan Mccarty MD Primary Care Provider [phone] Encounter Details Date Type Department Care Team (Late st Contact Info) Description 10/11/2019 Transcribed Document [facility] Family Medicine [facility] [place] [address] ProviderAkash MD [address] [place], [place] [address] Social History Tobacco Use Types Packs/Day Years Used Date Smoking Tobacco: Never Assessed Comments Unknown Sex and Gender Information Value Date Recorded Sex Assigned at Not on file Legal Sex Female 1:32 PM CDT Gender Identity Not on file Sexual Orientation Not on file documented as of this encounter Miscellaneous Notes * Cerner Conversion Note - Akash Vega MD - 10/11/2019 3:28 PM METER INSPECTOR Initial Discharge Planning Entered On: 10/11/2019 15:33 EST Performed On: 10/11/2019 15:28 EST by MEAGHAN DIXON Rn-Remote Sensing Research Scientist Initial Assessment I Previously Documented Living Environment : No qualifying data available. Living Situation : Home Patient Lives With : Spouse Emergency Contact #1 : Sandee Emergency Contact #1 Emergency Contact #1 Relationship : daughter Emergency Contact #2 : Dana Emergency Contact #2 Emergency Contact #2 Relationship : sister in law Medical Durable Power of White Mixing Operator Name : Yes Legal Guardian : No MEAGHAN DIXON Rn-Remote Sensing Research Scientist - 10/11/2019 15:28 EST Initial Assessment II Sensory and Motor Deficits : None Deficit Description : however, says she has a transport chair. MEAGHAN DIXON Rn-Remote Sensing Research Scientist - 10/11/2019 15:28 EST Discharge Needs I Anticipated Discharge Date : 10/14/2019 EST Current Home Treatment/Equipment : Current Home Treatment/Equipment No qualifying data available. Post Acute/Home Treatments : None Documentation Status Complete : Yes MEAGHAN DIXON Rn-Remote Sensing Research Scientist - 10/11/2019 15:28 EST Discharge Needs II Professional Skilled Services : Professional Skilled Services No qualifying data available. Needs Assistance with Transportation : Maybe Discharge Options Discussed with Patient : Home Health, Outpatient services MEAGHAN DIXON Rn-Remote Sensing Research Scientist - 10/11/2019 15:28 EST Narrative Note Narrative Note : RRS: Low 34 RN casde data warehousing manager met with pt at the bedside. Reed [...] portable oxygen tank at dc. MEAGHAN DIXON Rn-Remote Sensing Research Scientist - 10/11/2019 15:28 EST documented in this encounter Plan of Treatment Upcoming Encounters Date Type Department Care Team (Late st Contact Info) Description 09/07/2025 10:45 AM EDT Office Visit [facility] Electrophysiology [address] [place] [address] Adrienne Dunn MD [address] [facility] [address] [place] [address] documented as of this encounter Visit Diagnoses Not on filedocumented in this encounter Care Teams Learning Coach Relationship Specialty Start Date End Date Niranjan Mccarty MD [address] [place] [address] PCP - General Adolescent Medicine 10/15/23 documented as of this encounter
--- OUTSIDE RECORDS SUMMARY | 2025-06-14 10:55 | XMS_ITS | Encounter Summary ---
Author Organization [employer] ([place], [place], [place], [place]) Address [address] [place] [address] Care Team Providers Care Acoustical Carpenter Name Role Phone Niranjan Mccarty MD Primary Care Provider [phone] Encounter Details Date Type Department Care Team (Late st Contact Info) Description 10/12/2019 Transcribed Document [facility] [place] [address] [place] [address] ProviderAkash MD [address] [place], [place] [id number] Social History Tobacco Use Types Packs/Day Years Used Date Smoking Tobacco: Never Assessed Comments Unknown Sex and Gender Information Value Date Recorded Sex Assigned at Not on file Legal Sex Female 1:32 PM CDT Gender Identity Not on file Sexual Orientation Not on file documented as of this encounter Miscellaneous Notes * Cerner Conversion Note - Akash Vega MD - 10/12/2019 9:39 AM AQUACULTURE WORKER Stroke/Warfarin Instructions Entered On: 10/12/2019 9:39 EST Performed On: 10/12/2019 9:39 EST by Herberth Guevara RN Stroke/Warfarin Instructions Stroke/TIA Discharge Ins : N/A [...] - 10/12/2019 9:39 EST Electronically signed by [facility], [facility] Conversion Division Roadmaster Cerner at 03/07/2023 1:37 PM CDT documented in this encounter Plan of Treatment Upcoming Encounters Date Type Department Care Team (Late st Contact Info) Description 09/07/2025 10:45 AM EDT Office Visit [facility] Electrophysiology [address] [place] [address] Adrienne Dunn MD [address] [place] [address] [address] [place] [phone] documented as of this encounter Visit Diagnoses Not on filedocumented in this encounter Care Teams Acoustical Carpenter Relationship Specialty Start Date End Date Niranjan Mccarty MD [address] [place] [address] PCP - General Adolescent Medicine 10/15/23 documented as of this encounter
--- OUTSIDE RECORDS SUMMARY | 2025-06-14 10:55 | XMS_ITS | Encounter Summary ---
Author Organization [employer] ([place], [place], [place], [place]) Address [address] [place] [address] Care Team Providers Care Investor Name Role Phone Niranjan Mccarty MD Primary Care Provider [phone] Encounter Details Date Type Department Care Team (Late st Contact Info) Description 10/11/2019 Transcribed Document [facility] Family Medicine [place] [address] ProviderAkash MD [address] [place] [address] Social History Tobacco Use Types Packs/Day Years Used Date Smoking Tobacco: Never Assessed Comments Unknown Sex and Gender Information Value Date Recorded Sex Assigned at Not on file Legal Sex Female 1:32 PM CDT Gender Identity Not on file Sexual Orientation Not on file documented as of this encounter Miscellaneous Notes * Cerner Conversion Note - Akash ProviderMD - 10/11/2019 2:00 AM PRODUCT ASSURANCE ENGINEER Manager Universal Details Entered On: 10/11/2019 2:03 EST Performed On: 10/11/2019 2:00 EST by MEKA MANSFIELD RN Order Details Order Detail : N/A IV Order Detail : 1 Oxygen Order Detail : 1 Nurse Collect Order Detail : 0 Lift/Transfer : Moderate assist Central Line Order Detail : No Room Service : Appropriate Arterial Line : No MEKA MANSFIELD RN - 10/11/2019 2:02 EST documented in this encounter Plan of Treatment Upcoming Encounters Date Type Department Care Team (Late st Contact Info) Description 09/07/2025 10:45 AM EDT Office Visit [facility] Electrophysiology [address] [place] [phone] Adrienne Dunn MD [address] [facility] [address] [place] [address] documented as of this encounter Visit Diagnoses Not on filedocumented in this encounter Care Teams Investor Relationship Specialty Start Date End Date Niranjan Mccarty MD [address] [place] [address] PCP - General Adolescent Medicine 10/15/23 documented as of this encounter
--- OUTSIDE RECORDS SUMMARY | 2025-06-14 10:55 | XMS_ITS | Encounter Summary ---
Author Organization [employer] ([place], [place], [place], [place]) Address [address] [place] [address] Care Team Providers Care Abap Developer Name Role Phone Niranjan Mccarty MD Primary Care Provider [phone] Encounter Details Date Type Department Care Team (Late st Contact Info) Description 10/12/2019 Transcribed Document [facility] Cardiology [address] [place] [phone] [place] [address] [place] [address] [address] [place] [phone] Social History Tobacco Use Types Packs/Day Years [...] 1935 Associated Diagnoses: None Author: ADI DRIVER, OIL RAG WASHER-INT Basic Information PCP: NIRANJAN MORRIS MD Sap Bw Consultant: Cole SAMUEL Subjective NAD. No complaints of [...] (OCT 12 06:42) Resp Rate 16 (OCT 12 06:42) 16 (OCT 12 06:42) 18 (OCT 11 18:44) SBP 100 (OCT 12 06:42) 100 (OCT 12 03:50) H 151 (OCT 11 15:00) DBP L 54 (OCT 12:42) L 54 (OCT 12 06:42) 81 (OCT [...] Normal strength, No deformity. Integumentary: Warm, Dry, [place], Intact, No rash. Neurologic: Alert, Oriented, No [...] today from cardiology standpoint. F/U with Dr. Galvan as an outpatient. Continue current cardiac medications [...] EDT Office Visit [facility] Electrophysiology [address] [place] [phone] Adrienen Dunn MD [address] [place] [address] [address] [place] [phone] documented as of this encounter Visit Diagnoses Not on filedocumented in this encounter Care Teams Abap Developer Relationship Specialty Start Date End Date Niranjan Mccarty MD [address] [place] [address] PCP - General Adolescent Medicine 10/15/23 documented as of this encounter
--- OUTSIDE RECORDS SUMMARY | 2025-06-14 10:56 | XMS_ITS | Encounter Summary ---
Author Organization [employer] ([place], [place], [place], [place]) Address [address] [place] [address] Care Team Providers Care Agriculture Teacher Name Role Phone Niranjan Mccarty MD Primary Care Provider [phone] Encounter Details Date Type Department Care Team (Late st Contact Info) Description 10/10/2019 Transcribed Document [facility] [place] [address] [place] [address] ProviderAkash MD [address] [place] [address] Social History Tobacco Use Types [...] - Historical ProviderMD - 10/10/2019 5:00 AM CENTER CUSTOMER SERVICE ASSOCIATE Chart Check - Review Order Profile Entered On: 10/10/2019 4:41 EST Performed On: 10/10/2019 5:00 EST by MEKA MANSFIELD RN Chart Check All Active Orders Reviewed : Yes MEKA MANSFIELD RN - 10/10/2019 4:41 EST documented in this encounter Plan of Treatment Upcoming Encounters Date Type Department Care Team (Late st Contact Info) Description 09/07/2025 10:45 AM EDT Office Visit [address] [address] Adrienne Dunn MD [address] [facility] [address] [place], [place] [phone] documented as of this encounter Visit Diagnoses Not on filedocumented in this encounter Care Teams Agriculture Teacher Relationship Specialty Start Date End Date Niranjan Mccarty MD [address] [place] [address] PCP - General Adolescent Medicine 10/15/23 documented as of this encounter
--- OUTSIDE RECORDS SUMMARY | 2025-06-14 10:56 | XMS_ITS | Data Portability ---
Author Organization [facility] Address [address] [facility] [address] [place] [address] Care Team Providers Care Inorganic Chemist Name Role Phone ARTUROJOE Primary Care Provider [phone] Assessment No assessment recorded. Plan of Treatment Reminders Order Date Submit Date Provider Last Modified By Organization Details Last Modified Time Details Appointments None recorded. Lab None recorded. Referral None recorded. Procedures pacemaker check (PROC) 2018 [address], [facility], [place], [address], 9 11:22:51 Surgeries None recorded. Imaging electrocard iogram 2018 [email or web address] [place] [address], [facility], [place], [address], 9 11:10:04 Medication Orders None recorded. Patient TargetsNo targets recorded. Patient Instructions Encounter Date Encounter Id Patient Instructions Last Modified By Organization Details Last Modified Time 09/16/2019 [id number] shortness of breath: care instructions [email or web address] Not available 09/16/2019 11:01:55 Reason for Referral None Reported. Results Created Date Observation Date Name Description Value Unit Range Abnormal Flag Note LastModifiedBy Organization Detail LastModifiedTime 09/17/2009/16/2019 pacem bonnie check (PROC ) No observ ation record ed. BARCODE [address] [facility], [place], [address], 09/17/2019 11:55:20 09/20/20 19 09/16/2019 elect rafa levine am No observ ation record ed. [email or web address] [facility] Cardiology [address], [place], [address], 09/20/2019 08:57:38 09/22/20 19 09/16/2019 elect rafa quintanagr am No observ ation record ed. [email or web address] [facility] Cardiology [address], [place], [address], 09/22/2019 15:16:41 Result Notes None recorded. Problems Name Problem SNOMED Code Status Onset Date Resolution Date Notes Provider Name and Address Organization Details Recorded Time Clinical finding Active 2015 From Automated Load;Prov ider: Edgardo Cox;S tatus: Active Not Available [facility] 7 02:34:07 Pelvic and perineal pain 843089162 Active 2015 From Automated Load;Prov ider: Edgardo Cox;S tatus: Active Not Available [facility] 7 06:48:32 Paroxysma l atrial fibrillat ion 335943030 Active 2018 A FLUTTER AND AT ALSO REPORTED ON RECORDS JSEUS ANDERSEN MD [address] [place] [address], [address] , [facility] 9 07:44:01 Permanent cardiac pacemaker 34938905445 9102 Active 2018 JESUS ANDERSEN MD [address] [place] [address], [address] , [facility] 9 07:42:23 Mitral valve prolapse 293249502 Active 2018 AMVL JESUS ANDERSEN MD [address] [place] [address], [address] , [facility] 9 07:43:00 Chronic obstructi ve pulmonary disease 06795801 Active 2018 JESUS ANDERSEN MD [address] [place] [address], [address] , [facility] 9 07:43:11 Dyslipide james 807937590 Active 2018 JESUS ANDERSEN MD [address] [place] [address], [address] , [facility] 9 07:43:23 Hypertens petra disorder 69063601 [place] [address] [place] [address], [address] , [facility] 9 07:43:32 Sick sinus syndrome 19198862 Active 2018 JESUS ANDERSEN MD [address] [place] [address], [address] , [facility] 9 07:43:44 Problem Notes None recorded. [...] Address Organization Details Recorded Time [employer] FDA [id number] EnRhythlopez Watson [facility] 10/27/2018 08:55:56 Allergies Allergen ID Allergen Name Allergen Category Reaction Reaction Severity Criticality Documentation Date Start Date Code Code System Note Provider Name and Address Organization Details Recorded Time 813441 Product containin g penicilli n (product) medicatio n Not available Not available Not available 10/10/20162009 15786 8001 SNOMED Comme nt: Creat ed By: Ivone sommer;Cre ated Date: 3:17: 50 PM; Not Available [facility] 6 10:20:26 787342 vitamin K1 medicatio n Not available Not available Not available 10/10/20162009 8308 RxNorm Comme nt: Creat ed By: Ivone sommer;Cre ated Date: 3:19: 03 PM; Not Available [facility] 6 10:20:26 326396 Percodan medicatio n Not available Not available Not available 10/10/20162009 88033 RxNorm Comme nt: Creat ed By: Ivone sommer;Cre ated Date: 3:19: 27 PM; Not Available [facility] 6 10:20:26 419971 codeine medicatio n Not available Not available Not available 10/10/20162009 2670 RxNorm Comme nt: Creat ed By: Ivone sommer;Cre ated Date: 3:17: 27 PM; Not Available [facility] 6 11:31:45 477614 Biaxin medicatio n Not available Not available Not available 10/10/20162009 14767 9 RxNorm Comme nt: Creat ed By: Ivone sommer;Cre ated Date: 3:19: 14 PM; Not Available [facility] 6 11:31:45 181675 lovastati n / niacin medicatio n Not available Not available Not available 10/10/20162009 35902 7 RxNorm Comme nt: Creat ed By: Ivone sommer;Cre ated Date: 3:19: 37 PM; Not Available [facility] 6 11:46:40 804015 Claritin medicatio n Not available Not available Not available 10/10/2016200957 6 RxNorm Comme nt: Creat ed By: Ivone sommer;Cre ated Date: 3:20: 30 PM; Not Available [facility] 6 11:46:40 969623 Substance with sulfonami de structure and antibacte rial mechanism of action (substanc e) medicatio n Not available Not available Not available 10/10/20162009 13508 8003 SNOMED Comme nt: Creat ed By: Ivone sommer;Cre ated Date: 3:20: 54 PM; Not Available [facility] 6 11:46:40 913070 Cortizone medicatio n Not available Not available Not available 10/10/20162009 46840 40 RxNorm Comme nt: Creat ed By: Ivone sommer;Cre ated Date: 3:18: 18 PM; Not Available [facility] 6 13:35:35 574253 Radha medicatio n Not available Not available Not available 10/10/20162009 42251 6 RxNorm Comme nt: Creat ed By: Ivone sommer;Cre ated Date: 3:20: 43 PM; Not Available [facility] 6 13:35:35 335817 Cipro medicatio n other Not available Not available 10/11/2016200956 3 RxNorm Comme nt: Creat ed By: Ivone sommer;Cre ated Date: 3:19: 47 PM; Not Available [facility] 6 08:19:36 788885 tetracycl ine hydrochlo ride medicatio n Not available Not available Not available 04/09/20172015 68515 6 RxNorm Comme nt: Creat ed By: Pepe Matamoros lisa Date: 2015 4:34: 27 PM; Not Available [facility] 7 03:48:27 843829 doxycycli ne monohydra te medicatio n other Not available Not available 04/09/2017201512 2 RxNorm React ion: OTHER ; Comme nt: Creat ed By: Pepe Matamoros lisa Date: 2015 4:33: 37 PM; Not Available [facility] 7 03:48:27 635183 hydrocort isone medicatio n Not available Not available Not available 09/16/2019 5492 [facility] 9 10:44:27 286275 fexofenad ine medicatio n Not available Not available Not available 09/16/2019 39211 RxNorm [facility] 9 10:44:35 485441 ioxaglic acid Not available Not available Not available Not available 09/16/2019 97492 58 RxNorm [address] [facility] 9 10:44:42 851103 loratadin e medicatio n Not available Not available Not available 09/16/2019 72445 Rx[address] 9 10:44:50 185387 rofecoxib medicatio n Not available Not available Not available 09/16/2019 06648 8 RxNorm [address] [facility] 9 10:45:06 449104 tetracain e medicatio n Not available Not available Not available 09/16/2019 50102 RxNorm [address] 9 10:45:21 022354 azithromy octavia medicatio n other Not available Not available 09/16/2019 23752 RxNorm Cuca Diaz [facility] 9 10:46:32 724512 OsCal 500 medicatio n other Not available Not available 09/16/2019 94550 9 RxNorm [facility] 9 10:46:47 441210 cefuroxim e Not available other Not available Not available 09/16/2019 2194 RxNorm [facility] 9 10:47:09 698566 cerivasta tin medicatio n other Not available Not available 09/16/2019 23516 3 RxNorm [facility] 9 10:47:27 321557 erythromy octavia medicatio n other Not available Not available 09/16/2019 4053 RxNorm [facility] 9 10:47:51 035093 lovastati n medicatio n other Not available Not available 09/16/2019 6472 RxNorm [facility] 9 10:48:18 195253 niacin medicatio n other Not available Not available 09/16/2019 7393 RxNorm [facility] 9 10:48:26 482772 vitamin K1 medicatio n other Not available Not available 09/16/2019 8308 RxNorm [facility] 9 10:48:46 775664 vitamin K2 medicatio n other Not available Not available 09/16/2019 58074 RxNorm [facility] 9 10:49:19 268696 cortisone medicatio n other Not available Not available 09/16/2019 2878 RxNorm swell ing [facility] 9 10:49:53 896667 aspirin medicatio n other Not available Not available 09/16/2019 1191 RxNorm hyper [facility] 9 10:50:14 633288 clarithro mycin medicatio n diarrhea Not available Not available 09/16/2019 81488 RxNorm [facility] 9 10:50:33 095752 oxycodone medicatio n other mild Not available 09/16/2019 7804 RxNorm hyper Cuca Diaz angella [facility] 9 10:50:52 38541 Baycol medicatio n Not available Not available Not available 10/10/20162009 70340 7 RxNorm Comme nt: Creat ed By: Ivone sommer;Cre ated Date: 3:19: 59 PM; Not Available [facility] 6 10:09:37 27703 Vioxx medicatio n Not available Not available Not available 10/10/20162009 09113 9 RxNorm Comme nt: Creat ed By: Ivone sommer;Cre ated Date: 3:20: 08 PM; Not Available [facility] 6 10:09:37 53683 Iodinated contrast media (substanc e) medicatio n Not available Not available Not available 10/10/20162009 44885 2004 SNOMED Comme nt: Creat ed By: Ivone sommer;Cre ated Date: 3:17: 40 PM; Not Available [facility] 6 10:09:37 20274 E-Mycin medicatio n Not available Not available Not available 10/10/20162009 19829 8 RxNorm Comme nt: Creat ed By: Ivone sommer;Cre ated Date: 3:18: 38 PM; Not Available [facility] 6 10:09:37 Medications Name Sig [...] index (BMI) Body weight Heart rate Systolic And Diastolic Provider Name and Address Organization Details Last Updated DateTime 09/16/2019 170.18 cm 23.2 kg/m2 73284.67 g 74 /min 128/86 mm[Hg] Cinthia Ocampo [facility] 10:26:06 Social History Question Answer Notes LastModified by Organizat ion Details LastModified Time Tobacco Smoking Status Never Smoker Cinthia Ocampo [facility] 09/16/2019 10:23:04 How Much Tobacco Do [...] SNOMED-CT Code Diagnosis ICD10 Code Diagnosis Note [id number] JESUS ANDERSEN MD CARDIOLOG [address] [place] [address] 09/16/2019 10:05:24 09/16/2019 11:10:04 Dyspnea 390091935 R06.00 The patient's dyspnea may in part [...] Smith Member ID Guarantor Name 09/17/2019 2 [employer] (MEDICARE SUPPLEMENT) Tran Peguero [id number] Tran Peguero 09/16/2019 1 [place] Tran Peguero [id number] Tran Peguero OBGyn Episode No OBEpisode recorded.
--- OUTSIDE RECORDS SUMMARY | 2025-06-14 10:56 | XMS_ITS | Encounter Summary ---
Author Organization [employer] ([place], [place], [place], [place]) Address [address] [place] [address] Care Team Providers Care Camp Nurse Name Role Phone Niranjan Mccarty MD Primary Care Provider [phone] Encounter Details Date Type Department Care Team (Late st Contact Info) Description 06/13/2021 Transcribed Document [facility] Family Medicine [facility]ly [facility] [address] ProviderAkash MD [address] [place], [place] [phone] Social History Tobacco Use Types Packs/Day Years [...] [facility] Discharge Note - EP Primary Black Leather Trimmer: PCP: Niranjan Chavira Consults: NONE History of [...] Normal range of motion. Integumentary: Warm, Dry, Java. PPM site left SC dressing dry and [...] PCP in 5 - 7 days. Primary Black Leather Trimmer in [address] Dunn in 1 week for wound/device check and OK to resume Coumadin Patient has been instructed on and verbalized an understanding of the above discharge instructions. Plan has been discussed and is in agreement with Dr. Jose Luis Pryor, RN documenting for Dr. Amaya Electronically signed by [facility], [facility] Conversion Day Habilitation Specialist Cerner at 03/07/2023 1:27 PM CDT documented in this encounter Plan of Treatment Upcoming Encounters Date Type Department Care Team (Late st Contact Info) Description 09/07/2025 10:45 AM EDT Office Visit [facility] Electrophysiology [address] [place] [address] [phone] [place] [address] [place] [address] [address] [place], [place] [phone] documented as of this encounter Visit Diagnoses Not on filedocumented in this encounter Care Teams Camp Nurse Relationship Specialty Start Date End Date Niranjan Mccarty MD [address] [place] [address] PCP - General Adolescent Medicine 10/15/23 documented as of this encounter
--- OUTSIDE RECORDS SUMMARY | 2025-06-14 10:56 | XMS_ITS | Encounter Summary ---
Author Organization [employer] ([place], [place], [place], [place]) Address [address] [place] [address] Care Team Providers Care It Training Specialist Name Role Phone Niranjan Mccarty MD Primary Care Provider [phone] Encounter Details Date Type Department Care Team (Late st Contact Info) Description 06/12/2021 Transcribed Document [facility] Family Medicine Formerly [facility] [place] [address] ProviderAkash MD [address] [place] [id number] Social History Tobacco Use Types Packs/Day Years Used Date Smoking Tobacco: Never Assessed Comments Unknown Sex and Gender Information Value Date Recorded Sex Assigned at Not on file Legal Sex Female 1:32 PM CDT Gender Identity Not on file Sexual Orientation Not on file documented as of this encounter Miscellaneous Notes * Cerner Conversion Note - Akash Vega MD - 06/12/2021 8:26 PM CDT Meds to [...] 10:45 AM EDT Office Visit [facility] Electrophysiology [address] [place] [address] Adrienne Dunn MD [address] [facility] [address] [place], [place] [phone] documented as of this encounter Visit Diagnoses Not on filedocumented in this encounter Care Teams It Training Specialist Relationship Specialty Start Date End Date Niranjan Mccarty MD [address] [place] [address] PCP - General Adolescent Medicine 10/15/23 documented as of this encounter
--- OUTSIDE RECORDS SUMMARY | 2025-06-14 10:56 | XMS_ITS | Referral Summary ---
Author Organization [employer] ([place], [place], [place], [place]) Address [address] [place] [address] Care Team Providers Care Pick Pack Worker Name Role Phone Niranjan Mccarty MD Primary Care Provider [phone] Encounters Date Type Department Care Team Description 04/06/2025 5:00 AM EDT Clinical Support [facility] Electrophysiology [address] [place] [phone] Adrienne Dunn MD Encounter for adjustment or management of cardiac device (Primary Dx); Paroxysmal atrial fibrillation (HCC); Presence of cardiac pacemaker; Sick sinus syndrome (HCC); Complete atrioventricular block (HCC) from Last 3 Months Allergies Active Allergy [...] Date Garrett rded Speak language other than Solomon Islander at home Not on file 11/28/2023 Want [...] Description 09/07/2025 10:45 AM EDT Office Visit [facility] Electrophysiology [address] [place] [phone] [place] [address] [place] [address] [address] [place] [address] Medical Devices Implanted Type Area Batch Blender Device Identifier Shelf Expiration Date Model / Serial / Lot Pacemakers-06/13 Implanted:06/13 (Quantity not on file) Pacemakers MED[employer]IE VERA / [id number] / Description:DEPENDENT Insurance [place] [id number] MEDICARE PART A B Care Teams Pick Pack Worker Relationship Specialty Start Date End Date Niranjan Mccarty MD [address] [place] [address] PCP - General Adolescent Medicine 10/15/23
--- OUTSIDE RECORDS SUMMARY | 2025-06-14 10:56 | XMS_ITS | Encounter Summary ---
Author Organization [employer] ([place], [place], [place], [place]) Address [address] [place] [address] Care Team Providers Care Parts Administrator Name Role Phone Niranjan Mccarty MD Primary Care Provider [phone] Encounter Details Date Type Department Care Team (Late st Contact Info) Description 06/13/2021 Transcribed Document [facility] Family Medicine [facility] [place] [address] ProviderAkash MD [address] [place] [id number] Social History Tobacco Use Types Packs/Day Years Used Date Smoking Tobacco: Never Assessed Comments Unknown Sex and Gender Information Value Date Recorded Sex Assigned at Not on file Legal Sex Female 1:32 PM CDT Gender Identity Not on file Sexual Orientation Not on file documented as of this encounter Miscellaneous Notes * Cerner Conversion Note - Historical MD Silvia - 06/13/2021 6:26 AM CDT Patient: TRAN PEGUERO Age: 85 Years Sex: Female : 1935 @ around 0600hr patient complained of pain at the lt shoulder , offered pain medication ordered by doctor as telephone order but patient said she will take them after her breakfast. documented in this encounter Plan of Treatment Upcoming Encounters Date Type Department Care Team (Late st Contact Info) Description 09/07/2025 10:45 [place] [phone] Adrienne Dunn MD [address] [facility] [address] [place] [phone] documented as of this encounter Visit Diagnoses Not on filedocumented in this encounter Care Teams Parts Administrator Relationship Specialty Start Date End Date Niranjan Mccarty MD [address] [place] [address] PCP - General Adolescent Medicine 10/15/23 documented as of this encounter
--- OUTSIDE RECORDS SUMMARY | 2025-06-14 10:56 | XMS_ITS | Clinical Summary ---
Author Organization [employer] ([place], [place], [place], [place]) Address [address] [place] [address] Care Team Providers Care Shingle Grader Name Role Phone Niranjan Mccarty MD Primary Care Provider [phone] Allergies Active Allergy Reactions Criticality Noted Date [...] Description 04/06/2025 5:00 AM EDT Clinical Support [facility] Electrophysiology [address] [place] [phone] Adrienne Dunn MD Encounter for adjustment or management of cardiac device (Primary Dx); Paroxysmal atrial fibrillation (HCC); Presence of cardiac pacemaker; Sick sinus syndrome (HCC); Complete atrioventricular block (HCC) from Last 3 Months Social History Tobacco [...] Date Garrett rded Speak language other than Stateless at home Not on file 11/28/2023 Want [...] Description 09/07/2025 10:45 AM EDT Office Visit [facility] Electrophysiology [address] [place] [phone] Adrienne Dunn MD [address] [place] [address] [address] [place] [address] Health Maintenance Due Date Last Done Comments Medicare Initial AWV G0438 Depression Screening (12+) 1947 DTAP/TDAP/TD VACCINES (1 - Tdap) 1954 Pneumococcal 50+ years (1 of 2 - PCV) 1954 Shingles Vaccine (Zoster) (1 of 2) 1985 Respiratory Syncytial Virus (RSV) Adult or (1 - 1-dose 75+ series) 2010 COVID-19 VACCINE ( - 2023- season) 2024 Falls Risk Screening 11/17/2024 Influenza Vaccine (#1) 2025 Tobacco Cessation Counseling and Screening (12+) 03/0203/02/2025 Medical Devices Implanted Type Area Ticket Agent Device Identifier Shelf Expiration Date Model / Serial / Lot Pacemakers-06/13 Implanted:06/13 (Quantity not on file) Pacemakers [employer] JODY / [id number] / Description:DEPENDENT Insurance MEDICARE PART A B Care Teams Shingle Grader Relationship Specialty Start Date End Date Niranjan Mccarty MD [address] [place] [address] PCP - General Adolescent Medicine 10/15/23
--- OUTSIDE RECORDS SUMMARY | 2025-06-14 10:56 | XMS_ITS | Encounter Summary ---
Author Organization [employer] ([place], [place], [place], [place]) Address [address] [place] [address] Care Team Providers Care Retail Planning Manager Name Role Phone Niranjan Mccarty MD Primary Care Provider [phone] Encounter Details Date Type Department Care Team (Late Contact Info) Description 08/22/2023 Telephone [facility] Cardiology [facility] [address] [phone] Patrick Travis DO [address] [phone] Social History Tobacco Use Types Packs/Day Years [...] 10:45 AM EDT Office Visit [facility] Electrophysiology [address] [place] [address] Adrienne Dunn MD [address] [facility] [address] [place] [address] documented as of this encounter Visit Diagnoses Not on filedocumented in this encounter Care Teams Retail Planning Manager Relationship Specialty Start Date End Date Niranjan Mccarty MD [address] [place] [address] PCP - General Adolescent Medicine 10/15/23 documented as of this encounter
--- OUTSIDE RECORDS SUMMARY | 2025-06-14 10:56 | XMS_ITS | Encounter Summary ---
Author Organization [employer] ([place], [place], [place], [place]) Address [address] [place] [address] Care Team Providers Care Photovoltaic Subcontractor Name Role Phone Niranjan Mccarty MD Primary Care Provider [phone] Encounter Details Date Type Department Care Team (Late st Contact Info) Description 06/13/2021 Transcribed Document [facility] Family Medicine [address] [place] [address] ProviderAkash MD [address] [place], [place] [phone] Social History Tobacco Use Types Packs/Day Years Used Date Smoking Tobacco: Never Assessed Comments Unknown Sex and Gender Information Value Date Recorded Sex Assigned at Not on file Legal Sex Female 1:32 PM CDT Gender Identity Not on file Sexual Orientation Not on file documented as of this encounter Miscellaneous Notes * Cerner Conversion Note - Akash Vega MD - 06/13/2021 1:21 PM CDT UM Authorization Entered On: 06/13/2021 13:21 EDT Performed On: 06/13/2021 13:21 EDT by Jen Rothman Rn-Utilization Review Primary Insurance Authorization Authorization and Policy Numbers : Insurance 1 Health Plan: MEDICARE Policy Number: [id number] Authorization Number: Insurance 2 Health Plan: [facility] Policy Number: [id number] Authorization Number: Insurance Primary Name : MEDICARE Authorized Service Begin Date-Primary : 06/12/2021 EDT Historical Authorization Comments-Primary : No Authorization Comments Found Jen Rothman Rn-Utilization Review - 06/13/2021 13:21 EDT Electronically signed by [facility]y [facility] Conversion Chinese Herbalist Cerner at 03/07/2023 1:31 PM CDT documented in this encounter Plan of Treatment Upcoming Encounters Date Type Department Care Team (Late st Contact Info) Description 09/07/2025 10:45 AM EDT Office Visit [facility] Electrophysiology [address] [place] [phone] Adrienne Dunn MD [address] [place] [address] [address] [place] [phone] documented as of this encounter Visit Diagnoses Not on filedocumented in this encounter Care Teams Photovoltaic Subcontractor Relationship Specialty Start Date End Date Niranjan Mccarty MD [address] [place] [address] PCP - General Adolescent Medicine 10/15/23 documented as of this encounter
--- OUTSIDE RECORDS SUMMARY | 2025-06-14 10:56 | XMS_ITS | Encounter Summary ---
Author Organization [employer] ([place], [place], [place], [place]) Address [address] [place] [address] Care Team Providers Care Electric Solderer Name Role Phone Niranjan Mccarty MD Primary Care Provider [phone] Encounter Details Date Type Department Care Team (Late st Contact Info) Description 08/23/2021 Transcribed Document [facility] Family Medicine [facility] [place] [address] ProviderAkash MD [address] [place], [place] [phone] Social History Tobacco Use Types Packs/Day Years [...] as documented in chart. Surgical history: Appendectomy; (92502). cataract surgery. Cholecystectomy; (39864). eye surgery. foot surgery right. hand surgery. [...] EDT Height Source Stated Height Entry Format [place] Height/Length, POLISH (ft) 5 ft Height/Length POLISH 7 Inch CLINICALHEIGHT 170.18 cm [place] Body Weight 61.16 kg Weight Source, ED Critical estimated dosing weight Weight Entry Format [place] Weight Divehi lb 140 lb CLINICALWEIGHT 63.64 kg Body [...] Triage: ED C-SSRS: ED Clinical Reconciliation: ED gas attendant: EKG: Lactic Acid Level with Reflex if [...] 15.1 % LOW Lymph # 1.28 K/uL [place] % 5.9 % Freeborn # 0.50 K/uL Eos % 3.3 % Eos # 0.28 Baso % 0.2 % Baso # 0.02 Slide Review No Urine Type. U CleanCatch Urine Color Yellow Urine Appearance Clear Urine Specific Gar[place] 1.007 Urine pH Dipstick *8.0 Urine Leukocyte Esterase Negative Urine Nitrite Negative Urine Protein Dipstick Negative Urine Glucose Dipstick Negative Urine Ketones Dipstick Negative Urine Urobilinogen Dipstick 0.2 EU/dL Urine Bilirubin Dipstick Negative Urine Blood Dipstick Small Ur RBC 5-10 /HPF Ur WBC 0-2 /HPF Urine Culture if Indicated Not Indicated . Radiology results: Radiology Results (Last 48 hours) [id number] -- 08/23/2021 13:33 CR Chest 1 Vw [...] EDT, Discharge to: Home . Prescriptions: Prescription Popcorn Machine Operator Pharmacy: [facility] Dosepak 4 mg oral tablet [...] Description 09/07/2025 10:45 AM EDT Office Visit [facility] Electrophysiology [address] [place], [place] [phone] [place] [address] [place] [address] [address] [place] [phone] documented as of this encounter Visit Diagnoses Not on filedocumented in this encounter Care Teams Electric Solderer Relationship Specialty Start Date End Date Niranjan Mccarty MD [address] [place] [address] PCP - General Adolescent Medicine 10/15/23 documented as of this encounter
--- OUTSIDE RECORDS SUMMARY | 2025-06-14 10:56 | XMS_ITS | Encounter Summary ---
Author Organization [employer] ([place], [place], [place], [place]) Address [address] [place] [address] Care Team Providers Care Green Meat Grader Name Role Phone Niranjan Mccarty MD Primary Care Provider [phone] Encounter Details Date Type Department Care Team (Late st Contact Info) Description 08/24/2021 Transcribed Document [facility] [place] Family Medicine [address] [place] [address] ProviderAkash MD [address] [place] [address] Social History Tobacco Use Types Packs/Day Years Used Date Smoking Tobacco: Never Assessed Comments Unknown Sex and Gender Information Value Date Recorded Sex Assigned at Not on file Legal Sex Female 1:32 PM CDT Gender Identity Not on file Sexual Orientation Not on file documented as of this encounter Miscellaneous Notes * Cerner Conversion Note - Akash Vega MD - 08/24/2021 10:18 AM CDT CR Chest 1 Vw Portable Ordered: 08/23/2021 Modified Reason for Exam: SOA 08/23/2021 18:36 08/24/2021 10:18 (KATE ROGEL) No further action required Electronically signed by Sherri Sam Conversion Nuisance Wildlife Control Operator Cerner at 03/07/2023 1:23 PM CDT documented in this encounter Plan of Treatment Upcoming Encounters Date Type Department Care Team (Late st Contact Info) Description 09/07/2025 10:45 AM EDT Office Visit [address] [phone] Adrienne Dunn MD [address] [facility] [address] [place] [address] documented as of this encounter Visit Diagnoses Not on filedocumented in this encounter Care Teams Green Meat Grader Relationship Specialty Start Date End Date Niranjan Mccarty MD [address] [place] [address] PCP - General Adolescent Medicine 10/15/23 documented as of this encounter
--- OUTSIDE RECORDS SUMMARY | 2025-06-14 10:56 | XMS_ITS | Encounter Summary ---
Author Organization [employer] ([place], [place], [place], [place]) Address [address] [place] [address] Care Team Providers Care Scutcher Tender Name Role Phone Niranjan Mccarty MD Primary Care Provider [phone] Encounter Details Date Type Department Care Team (Late st Contact Info) Description 08/23/2021 Transcribed Document [facility] [place] Family Medicine [facility] [place] [address] ProviderAkash MD [address] [place], [place] [id number] Social History Tobacco Use Types Packs/Day Years Used Date Smoking Tobacco: Never Assessed Comments Unknown Sex and Gender Information Value Date Recorded Sex Assigned at Not on file Legal Sex Female 1:32 PM CDT Gender Identity Not on file Sexual Orientation Not on file documented as of this encounter Miscellaneous Notes * Cerner Conversion Note - Akash Vega MD - 08/23/2021 1:33 PM CDT ED Triage [...] : 2 - [facility] GEORGINA EVERETT RN - 08/23/2021 13:34 EDT Mode of Arrival : Stretcher Transported to ED by : Ambulance/ALS EMS Service : [facility] To Room Via : Stretcher Accompanied By [...] Onset Date: Unspecified ; Created By: CONTRIBUTOR_SYSTEM HIST_MARIE; Reaction Status: Active ; Category: Drug ; Substance: aspirin-oxyCODONE ; Type: Allergy ; Updated By: CONTRIBUTORSunSYSTEM HISTLAZARA; Reviewed Date: 08/23/2021 13:37 EDT azithromycin Estimated [...] ; Type: Allergy ; Updated By: CONTRIBUTOR_SYSTEM, HIST_CERHENRY; Reviewed Date: 08/23/2021 13:37 EDT Vioxx Estimated [...] 08/23/2021 13:42:42 EDT) Problems(Active) Anxiety (SNOMED CT :41367707 ) Name of Problem: Anxiety ; Recorder: JOSE TYSON RN; Confirmation: Confirmed ; Classification: Patient Stated ; Code: 36311121 ; Contributor System: [email or web address] ; Last Updated: 12/08/2014 8:41 EST ; Life Cycle Date: 12/08/2014 ; Life Cycle Status: Active ; Vocabulary: SNOMED CT Arthritis (SNOMED CT :1800947 ) Name of Problem: Arthritis ; Recorder: Nory Farfan RN; Confirmation: Confirmed ; Classification: Patient Stated ; Code: 8525882 ; Contributor System: [email or web address] ; Last Updated: 06/12/2021 12:48 EDT ; Life Cycle Date: 06/12/2021 ; Life Cycle Status: Active ; Vocabulary: SNOMED CT At risk for sleep apnea (IMO :39240947 ) Name of Problem: At risk for sleep apnea ; Recorder: SYSTEM, SYSTEM; Confirmation: Confirmed ; Classification: Medical ; Code: 37204269 ; Last Updated: 10/09/2019 21:47 EST ; Life Cycle Date: 10/09/2019 ; Life Cycle Status: Active ; Vocabulary: IMO Atrial fibrillation (SNOMED CT :06214725 ) Name of Problem: Atrial fibrillation ; Recorder: JOSE TYSON RN; Confirmation: Confirmed ; Classification: Patient Stated ; Code: 52266061 ; Contributor System: [email or web address] ; Last Updated: 12/08/2014 8:42 EST ; Life Cycle Date: 12/08/2014 ; Life Cycle Status: Active ; Vocabulary: SNOMED CT Atrial fibrillation (SNOMED CT :73515591 ) Name of Problem: Atrial fibrillation ; Recorder: DUANE TAVERA APRN; Confirmation: Confirmed ; Classification: Medical ; Code: 24924695 ; Contributor System: PowerChart ; Last Updated: 10/10/2019 11:36 EST ; Life Cycle Status: Active ; Vocabulary: SNOMED CT Chronic CHF (SNOMED CT :160193637 ) Name of Problem: Chronic CHF ; Recorder: JOSE TYSON RN; Confirmation: Confirmed ; Classification: Patient Stated ; Code: 539226099 ; Contributor System: PowerChart ; Last Updated: 12/08/2014 8:43 EST ; Life Cycle Date: 12/08/2014 ; Life Cycle Status: Active ; Vocabulary: SNOMED CT Chronic obstructive pulmonary disease (COPD) (SNOMED CT :63166839 ) Name of Problem: Chronic obstructive pulmonary disease (COPD) ; Recorder: Nory Farfan RN; Confirmation: Confirmed ; Classification: Patient Stated ; Code: 71628254 ; Contributor System: PowerChart ; Last Updated: 06/12/2021 12:49 EDT ; Life Cycle Date: 06/12/2021 ; Life Cycle Status: Active ; Vocabulary: SNOMED CT Chronic respiratory failure (SNOMED CT :59662071 ) Name of Problem: Chronic respiratory failure ; Recorder: JOSE TYSON RN; Confirmation: Confirmed ; Classification: Patient Stated ; Code: 83186729 ; Contributor System: PowerChart ; Last Updated: 12/08/2014 8:42 EST ; Life Cycle Date: 12/08/2014 ; Life Cycle Status: Active ; Vocabulary: SNOMED CT Diverticulosis (SNOMED CT :1044057793 ) Name of Problem: Diverticulosis ; Recorder: Nory Farfan RN; Confirmation: Confirmed ; Classification: Patient Stated ; Code: 4183704670 ; Contributor System: PowerChart ; Last Updated: 06/12/2021 12:48 EDT ; Life Cycle Date: 06/12/2021 ; Life Cycle Status: Active ; Vocabulary: SNOMED CT Fibromyalgia (SNOMED CT :274236994 ) Name of Problem: Fibromyalgia ; Recorder: Nory Farfan RN; Confirmation: Confirmed ; Classification: Patient Stated ; Code: 808362772 ; Contributor System: PowerChart ; Last Updated: 06/12/2021 12:48 EDT ; Life Cycle Date: 06/12/2021 ; Life Cycle Status: Active ; Vocabulary: SNOMED CT H/O hyperlipidemia (SNOMED CT :784418259 ) Name of Problem: H/O hyperlipidemia ; Recorder: JOSE TYSON RN; Confirmation: Confirmed ; Classification: Patient Stated ; Code: 314978473 ; Contributor System: PowerChart ; Last Updated: 12/08/2014 8:43 EST ; Life Cycle Date: 12/08/2014 ; Life Cycle Status: Active ; Vocabulary: SNOMED CT H/O sick sinus syndrome (SNOMED CT :391735650 ) Name of Problem: H/O sick sinus syndrome ; Recorder: JOSE TYSON RN; Confirmation: Confirmed ; Classification: Patient Stated ; Code: 421176707 ; Contributor System: PowerChart ; Last Updated: 12/08/2014 8:43 EST ; Life Cycle Date: 12/08/2014 ; Life Cycle Status: Active ; Vocabulary: SNOMED CT Hyperlipidemia (SNOMED CT :34912257 ) Name of Problem: Hyperlipidemia ; Recorder: AYSE; Confirmation: Confirmed ; Classification: Medical ; Code: 41207103 ; Contributor System: PowerChart ; Last Updated: 10/10/2019 11:36 EST ; Life Cycle Status: Active ; Vocabulary: SNOMED CT Hypertension (SNOMED CT :98592754 ) Name of Problem: Hypertension ; Recorder: [place]; Confirmation: Confirmed ; Classification: Medical ; Code: 66917105 ; Contributor System: PowerChart ; Last Updated: 10/10/2019 11:36 EST ; Life Cycle Status: Active ; Vocabulary: SNOMED CT Leg swelling (SNOMED CT :1589605695 ) Name of Problem: Leg swelling ; Recorder: JOSE TYSON RN; Confirmation: Confirmed ; Classification: Patient Stated ; Code: 6803144008 ; Contributor System: PowerChart ; Last Updated: 12/08/2014 8:44 EST ; Life Cycle Date: 12/08/2014 ; Life Cycle Status: Active ; Vocabulary: SNOMED CT Diagnoses(Active) Weakness Date: 08/23/2021 ; Diagnosis Type: Reason For Visit ; Confirmation: Complaint of ; Clinical Dx: Weakness ; Classification: Medical ; Clinical Service: Emergency medicine ; Code: PNED ; Probability: 0 ; Diagnosis Code: [id number] ED Height and Weight Height Source : Stated Height Entry Format : [place] Height, Feet : 5 ft(Converted to: 152 cm, 60 Inch) Height, Inches : 7 Inch(Converted to: 0 ft 7 Inch, 17.78 cm) Clinical Height : 170.18 cm Weight Source, ED : Critical estimated dosing weight Weight Entry Format : [place] Weight, Pounds : 140 lb Clinical Dosing Weight : 63.64 kg Body Surface Area (BSA) : 1.74 m2 Body Mass Index : 22 kg/m2 [place] Body Weight (IBW) : 61.16 kg GEORGINA EVERETT RN - 08/23/2021 13:34 EDT Electronically signed by [facility] Conversion Marketing Services Vice President Cerner at 03/07/2023 1:28 PM CDT documented in this encounter Plan of Treatment Upcoming Encounters Date Type Department Care Team (Late st Contact Info) Description 09/07/2025 10:45 AM EDT Office Visit [facility] Electrophysiology [address] [place], [place] [address] Adrienne Dunn MD [address] [place] [address] [address] [place] [address] documented as of this encounter Visit Diagnoses Not on filedocumented in this encounter Care Teams Scutcher Tender Relationship Specialty Start Date End Date Niranjan Mccarty MD [address] [place] [address] PCP - General Adolescent Medicine 10/15/23 documented as of this encounter
--- OUTSIDE RECORDS SUMMARY | 2025-06-14 10:56 | XMS_ITS | Encounter Summary ---
Author Organization [employer] ([place], [place], [place], [place]) Address [address] [place] [address] Care Team Providers Care Class C Driver Name Role Phone Niranjan Mccarty MD Primary Care Provider [phone] Encounter Details Date Type Department Care Team (Late st Contact Info) Description 10/10/2019 Transcribed Document [facility] Family Medicine [facility] [place] [address] ProviderAkash MD [address] [place] [address] Social History Tobacco Use Types Packs/Day Years Used Date Smoking Tobacco: Never Assessed Comments Unknown Sex and Gender Information Value Date Recorded Sex Assigned at Not on file Legal Sex Female 1:32 PM CDT Gender Identity Not on file Sexual Orientation Not on file documented as of this encounter Miscellaneous Notes * Cerner Conversion Note - Akash ProviderMD - 10/10/2019 2:00 AM LOMBARDI DEVELOPER Religious Studies Professor Details Entered On: 10/10/2019 1:12 EST Performed [...] 10/10/2019 1:12 EST Electronically signed by Cecy [facility] Conversion Clinical Support Associate Cerner at 03/07/2023 1:26 PM CDT documented in this encounter Plan of Treatment Upcoming Encounters Date Type Department Care Team (Late st Contact Info) Description 09/07/2025 10:45 AM EDT Office Visit [facility] Electrophysiology [address] [place] [phone] Adrienne Dunn MD [address] [facility] [address] [place] [address] documented as of this encounter Visit Diagnoses Not on filedocumented in this encounter Care Teams Class C Driver Relationship Specialty Start Date End Date Niranjan Mccarty MD [address] [place] [address] PCP - General Adolescent Medicine 10/15/23 documented as of this encounter
--- OUTSIDE RECORDS SUMMARY | 2025-06-14 10:56 | XMS_ITS | Encounter Summary ---
Author Organization [employer] ([place], [place], [place], [place]) Address [address] [place] [address] Care Team Providers Care Mine Superintendent Name Role Phone Niranjan Mccarty MD Primary Care Provider [phone] Encounter Details Date Type Department Care Team (Late st Contact Info) Description 06/12/2021 Transcribed Document [facility] [place] [address] ProviderAkash MD [address] [place] [id number] Social History Tobacco Use Types Packs/Day Years [...] Age: 85 Years Sex: Female : 1935 Link Assembler: Julián Amaya MD Indication: dual chamber pacemaker [...] generator was a Medtronic model [id number] that replaced the old generator. Complications: No [...] Description 09/07/2025 10:45 AM EDT Office Visit [facility] Electrophysiology [address] [place] [phone] Adrienne Dunn MD [address] [facility] [address] [place], [place] [phone] documented as of this encounter Visit Diagnoses Not on filedocumented in this encounter Care Teams Mine Superintendent Relationship Specialty Start Date End Date Niranjan Mccarty MD [address] [place] [address] PCP - General Adolescent Medicine 10/15/23 documented as of this encounter
--- OUTSIDE RECORDS SUMMARY | 2025-06-14 10:56 | XMS_ITS | Encounter Summary ---
Author Organization [employer] ([place], [place], [place], [place]) Address [address] [place] [address] Care Team Providers Care Power Supply Engineer Name Role Phone Niranjan Mccarty MD Primary Care Provider [phone] Encounter Details Date Type Department Care Team (Late st Contact Info) Description 06/13/2021 Transcribed Document [facility] [place] Medicine [facility] [place] [address] ProviderAkash MD [address] [place] [address] Social History Tobacco Use Types [...] Vega MD - 06/13/2021 3:30 PM CDT [facility] [place] [id number] WILD TRAN KELLY :1935 Visit Time:06/12/2021 Your Visit Summary Your Care Team Admitting Physician - SHANITA CONTE MD-CAR Attending Physician - SHANITA CONTE MD-CAR Primary Care Physician - NIRANJAN MORRIS MD-FAM Referring Physician - SHANITA CONTE MD-CAR These [...] Not Drive Follow-Up Appointments Follow Up with ADRIENNE DUNN When 06/20/2021 01:00 PM EDT Comments Wound/device check in [address] Dunn Appointment has been made Where: [facility] [address] [place] [address]- Business (1) Medications What How Much When [...] these instructions at home: Medicines ??? Take fgjt-uss-awipwql and prescription medicines only as told by [...] and water are not available, use hand re dye hand. ? Change your dressing as told by [...] your chest for several days. ??? Take whde-fcf-zhbrmrg and prescription medicines only as told by [...] Reviewed: 10/04/2019 Elsevier Patient Education ?? 2020 [employer]. Heart-Healthy Eating Plan Heart-healthy meal planning [...] Fats and oils Meat fat, or shortening. [place] butter, hydrogenated oils, palm oil, coconut oil, [...] provider. Document Revised: 01/07/2019 Document Reviewed: 12/11/2018 Stonewedge Patient Education ?? 2020 [employer]ominum. Emergency Awareness and Preventative Care STROKE is [...] Assistance with quitting is available by contacting 7-314-RGXB-NOW. This is a free resource providing counseling, [...] range between ( 0.0 and 7.0 ) Bremer #: 0.48 K/uL -- Normal range between ( 0.16 and 1.00 ) Eos #: 0.16 x10(3)/uL -- Normal range between ( 0.00 and 0.80 ) [place]mer %: 8.0 % -- Normal range between [...] between ( 9.2 and 12.0 ) Patient Name:TRAN PEGUERO I have received and understand this information and was given the opportunity to ask questions. Patient/Mold Stripper Name: Patient/Mold Stripper Signature: Relationship to Patient: Clinician/Hospital Mold Stripper Signature: Date: Electronically signed by Cecy, [facility] Conversion Cut Press Operator Cerner at 03/07/2023 1:48 PM CDT documented in this encounter Plan of Treatment Upcoming Encounters Date Type Department Care Team (Late st Contact Info) Description 09/07/2025 10:45 AM EDT Office Visit [address] [address] Adrienne Dunn MD [address] [place] [address] [address] [place] [address] documented as of this encounter Visit Diagnoses Not on filedocumented in this encounter Care Teams Power Supply Engineer Relationship Specialty Start Date End Date Niranjan Mccarty MD [address] [place] [address] PCP - General Adolescent Medicine 10/15/23 documented as of this encounter
--- OUTSIDE RECORDS SUMMARY | 2025-06-14 10:56 | XMS_ITS | Encounter Summary ---
Author Organization [employer] ([place], [place], [place], [place]) Address [address] [place] [address] Care Team Providers Care Guest Services Officer Name Role Phone Niranjan Mccarty MD Primary Care Provider [phone] Encounter Details Date Type Department Care Team (Late st Contact Info) Description 08/23/2021 Transcribed Document [facility] Family Medicine [address] [place] [address] ProviderAkash MD [address] [place], [place] [id number] Social History Tobacco Use Types Packs/Day Years [...] MD - 08/23/2021 1:33 PM CDT ED Assessment Entered On: 08/23/2021 13:46 EDT Performed On: 08/23/2021 13:43 EDT by GEORGINA EVERETT RN ED Quick Look Assessment Level of Consciousness : Alert, Awake Affect/Behavior : Appropriate, Calm, Cooperative Orientation : Oriented x 4 Skin Color : Other: normal Skin Temperature : Warm Skin Description : Dry GEORGINA EVERETT RN - 08/23/2021 13:43 EDT ED General-Functional Assess Information Obtained From : Patient, Other: EMS Preferred Communication Mode : Verbal Communication Barrier : None Primary Language : Macedonian Any Spiritual/Cultural Needs or Requests : No Currently in Unsafe Situation : No GEORGINA EVERETT RN - 08/23/2021 13:43 EDT Social Habits [...] 07/11/2018 20:18:12 EDT by BRAYAN LUNA, RN) Home/Environment: Lives with Spouse. (Last Updated: [...] GEORGINA EVERETT RN - 08/23/2021 13:43 EDT Neurologic [...] form. Electronically signed by Sherri Sam Conversion Neonatal Intensive Care Unit Nurse Cerner at 03/07/2023 1:50 PM CDT documented in this encounter Plan of Treatment Upcoming Encounters Date Type Department Care Team (Late st Contact Info) Description 09/07/2025 10:45 AM EDT Office Visit [facility] Electrophysiology [address] [place] [address] Adrienne Dunn MD [address] [place] [address] [address] [place] [address] documented as of this encounter Visit Diagnoses Not on filedocumented in this encounter Care Teams Guest Services Officer Relationship Specialty Start Date End Date Niranjan Mccarty MD [address] [place] [address] PCP - General Adolescent Medicine 10/15/23 documented as of this encounter
--- OUTSIDE RECORDS SUMMARY | 2025-06-14 10:56 | XMS_ITS | Encounter Summary ---
Author Organization [employer] ([place], [place], [place], [place]) Address [address] [place] [address] Care Team Providers Care Animal Husbandry Technician Name Role Phone Niranjan Mccarty MD Primary Care Provider [phone] Encounter Details Date Type Department Care Team (Late st Contact Info) Description 08/23/2021 Transcribed Document [facility] Family Medicine [address] [place] [address] ProviderAkash MD [address] [place], [place] [phone] Social History Tobacco Use Types Packs/Day Years [...] Vega MD - 08/23/2021 1:33 PM CDT [place] Suicide Severity Rating Scale (C-SSRS) Entered On: 08/23/2021 13:46 EDT Performed On: 08/23/2021 13:43 EDT by GEORGINA EVERETT RN [place] Suicide Severity Rating Scale (C-SSRS) CSSRS Past [...] Office Visit [facility] Electrophysiology [address] [place] [phone] Adrienne Dunn MD [address] [facility] [address] [place], [place] [id number] documented as of this encounter Visit Diagnoses Not on filedocumented in this encounter Care Teams Animal Husbandry Technician Relationship Specialty Start Date End Date Niranjan Mccarty MD [address] [place] [address] PCP - General Adolescent Medicine 10/15/23 documented as of this encounter
--- OUTSIDE RECORDS SUMMARY | 2025-06-14 10:56 | XMS_ITS | Encounter Summary ---
Author Organization [employer] ([place], [place], [place], [place]) Address [address] [place] [address] Care Team Providers Care Paralegal Secretary Name Role Phone Niranjan Mccarty MD Primary Care Provider [phone] Encounter Details Date Type Department Care Team (Late st Contact Info) Description 10/10/2019 Transcribed Document [facility] [place] [facility] [place] [address] ProviderAkash MD [address] [place] [id number] Social History Tobacco Use Types Packs/Day Years Used Date Smoking Tobacco: Never Assessed Comments Unknown Sex and Gender Information Value Date Recorded Sex Assigned at Not on file Legal Sex Female 1:32 PM CDT Gender Identity Not on file Sexual Orientation Not on file documented as of this encounter Miscellaneous Notes * Cerner Conversion Note - Akash Vega MD - 10/10/2019 8:07 AM HEAD TRIMMER Patient: TRAN PEGUERO Age: 83 years Sex: [...] Daily PT/INR ordered Nataly Diaz PharmD PGY-1 Ultrasound Technol Pager: [phone] Electronically signed by Cecy [facility] Conversion Card Checker Cerner at 03/07/2023 1:42 PM CDT documented in this encounter Plan of Treatment Upcoming Encounters Date Type Department Care Team (Late st Contact Info) Description 09/07/2025 10:45 AM EDT Office Visit [facility] Electrophysiology [address] [place] [address] [place] [address] [place] [address] [address] [place] [address] documented as of this encounter Visit Diagnoses Not on filedocumented in this encounter Care Teams Paralegal Secretary Relationship Specialty Start Date End Date Niranjan Mccarty MD [address] [place] [address] PCP - General Adolescent Medicine 10/15/23 documented as of this encounter
--- OUTSIDE RECORDS SUMMARY | 2025-06-14 10:56 | XMS_ITS | Encounter Summary ---
Author Organization [employer] ([place], [place], [place], [place]) Address [address] [place] [address] Care Team Providers Care Beam Sealer Name Role Phone Niranjan Mccarty MD Primary Care Provider [phone] Encounter Details Date Type Department Care Team (Late st Contact Info) Description 08/23/2021 Transcribed Document [facility] [place] Family Medicine [address] [place] [address] ProviderAkash MD [address] [place], [place] [phone] Social History Tobacco Use Types Packs/Day Years [...] Vega MD - 08/23/2021 1:33 PM CDT [place] Violence Assessment Entered On: 08/23/2021 13:46 EDT Performed On: 08/23/2021 13:43 EDT by GEORGINA EVERETT RN Broset Violence Assessment Bro[place] Violence Checklist of Symptoms : None Bro[place] Violence Symptoms Subtotal : 0 Bro[place] Violence Symptoms Indicator : Low risk (0) Broset Interventions : [place] precautions for safety used GEORGINA EVERETT RN - 08/23/2021 13:43 EDT Electronically signed by Sherri Sam Conversion Shredded Filler Machine Wrapper Layer Cerner at 03/07/2023 1:22 PM CDT documented in this encounter Plan of Treatment Upcoming Encounters Date Type Department Care Team (Late st Contact Info) Description 09/07/2025 10:45 AM EDT Office Visit [facility] Electrophysiology [address] [place] [address] Adrienne Dunn MD [address] [facility] [address] [place] [address] documented as of this encounter Visit Diagnoses Not on filedocumented in this encounter Care Teams Beam Sealer Relationship Specialty Start Date End Date Niranjan Mccarty MD [address] [place] [address] PCP - General Adolescent Medicine 10/15/23 documented as of this encounter
--- OUTSIDE RECORDS SUMMARY | 2025-06-14 10:56 | XMS_ITS | Encounter Summary ---
Author Organization [employer] ([place], [place], [place], [place]) Address [address] [place] [address] Care Team Providers Care Mechanical Product Design Engineer Name Role Phone Niranjan Mccarty MD Primary Care Provider [phone] Encounter Details Date Type Department Care Team (Late st Contact Info) Description 08/23/2021 Transcribed Document [facility] [place] [facility] [place] [address] ProviderAkash MD [address] [place] [address] Social History Tobacco Use Types [...] Vega MD - 08/23/2021 8:36 PM CDT [facility] [place] [id number] TAL PEGUERO :1935 Visit Time:08/23/2021 Your Visit Summary [...] to 3 days Where: [address] [place] [address] Source Audio (1) Allergies Advicor Radha Baycol Biaxin Claritin [...] A Day Duration: 10 Day(s) Pickup at [facility] methylPREDNISolone (Medrol Dosepak 4 mg oral tablet) 1 Packet(s) Oral Every Day Duration: 6 Day(s) as directed on package labeling Pickup at [facility] ALPRAZolam (Xanax 0.5 mg oral tablet) 1 [...] Oral Every Day except sundays Pharmacy Information [facility]: [address] [phone] The home medications listed are only as [...] range between ( 0.0 and 7.0 ) Armstrong #: 0.50 K/uL -- Normal range between ( 0.16 and 1.00 ) Eos #: 0.28 -- Normal range between ( 0.00 and 7.00 ) Armstrong %: 5.9 % -- Normal range between [...] ) Urine Bilirubin Dipstick: Negative Urine Specific Carnegie: 1.007 -- Normal range between ( 1.005 [...] these instructions at home: Medicines ??? Take vzum-zgz-mnwsxnl and prescription medicines only as told by [...] and water are not available, use hand international nurse. ??? During flu season, avoid enclosed spaces [...] Reviewed: 12/08/2017 Elsevier Patient Education ?? 2020 Otterologyvier Inc. Emergency Awareness and Preventative Care STROKE [...] Assistance with quitting is available by contacting 6-825-MTMO-NOW. This is a free resource providing counseling, support, and referral. Or you may contact your personal physician. [place] Suicide Prevention Lifeline: The National Suicide Prevention [...] CPR? There are two easy steps: Call 9-1-1 if you see a teen or adult [...] was given the opportunity to ask questions. Patient/Gun Mechanic Name: Patient/Gun Mechanic Signature: Relationship to Patient: Clinician/Hospital Gun Mechanic Signature: Please Provide a Telephone Number Where You Can Be Reached: Is it Permissible To Leave a Message? Date: documented in this encounter Plan of Treatment Upcoming Encounters Date Type Department Care Team (Late st Contact Info) Description 09/07/2025 10:45 AM EDT Office Visit [facility] Electrophysiology [address] [place], [place] [phone] [place] [address] [place] [address] [address] [place] [id number] documented as of this encounter Visit Diagnoses Not on filedocumented in this encounter Care Teams Mechanical Product Design Engineer Relationship Specialty Start Date End Date Niranjan Mccarty MD [address] [place] [address] [place] [address] PCP - General Adolescent Medicine 10/15/23 documented as of this encounter
--- OUTSIDE RECORDS SUMMARY | 2025-06-14 10:56 | XMS_ITS | Encounter Summary ---
Author Organization [employer] ([place], [place], [place], [place]) Address [address] [place] [address] Care Team Providers Care Credit Reporter Name Role Phone Niranjan Mccarty MD Primary Care Provider [phone] Encounter Details Date Type Department Care Team (Late st Contact Info) Description 06/12/2021 Transcribed Document [facility] [place] [address] ProviderAkash MD [address] [place] [id number] Social History Tobacco Use Types Packs/Day Years Used Date Smoking Tobacco: Never Assessed Comments Unknown Sex and Gender Information Value Date Recorded Sex Assigned at Not on file Legal Sex Female 1:32 PM CDT Gender Identity Not on file Sexual Orientation Not on file documented as of this encounter Miscellaneous Notes * Cerner Conversion Note - Akash Vega MD - 06/12/2021 8:09 PM CDT Event Note Entered On: 06/12/2021 20:10 EDT Performed On: 06/12/2021 20:09 EDT by MIRTA CRUM RN Event Note Event Date/Time : 06/12/2021 20:09 EDT Description of Event : Report called to [facility]. Pt transferred to room 428 MIRTA CRUM RN - 06/12/2021 20:09 EDT Electronically signed by Cecy [facility] Conversion Wool Scourer Cerner at 03/07/2023 1:36 PM CDT documented in this encounter Plan of Treatment Upcoming Encounters Date Type Department Care Team (Late st Contact Info) Description 09/07/2025 10:45 AM EDT Office Visit [facility] Electrophysiology [address] [place] [address] Adrienne Dunn MD [address] [facility] [address] [place], [place] [id number] documented as of this encounter Visit Diagnoses Not on filedocumented in this encounter Care Teams Credit Reporter Relationship Specialty Start Date End Date Niranjan Mccarty MD [address] [place] [address] [place] [address] PCP - General Adolescent Medicine 10/15/23 documented as of this encounter
--- OUTSIDE RECORDS SUMMARY | 2025-06-14 10:56 | XMS_ITS | Encounter Summary ---
Author Organization [employer] ([place], [place], [place], [place]) Address [address] [place] [address] Care Team Providers Care Painter Spray Name Role Phone Niranjan Mccarty MD Primary Care Provider [phone] Encounter Details Date Type Department Care Team (Late st Contact Info) Description 06/13/2021 Transcribed Document [facility] [place] [address] [place] [address] ProviderAkash MD [address] [place] [address] Social History Tobacco Use Types [...] Vega MD - 06/13/2021 3:32 PM CDT [facility] [place] [id number] WILD TRAN KELLY :1935 Visit Time:06/12/2021 Your [...] Dr. Dunn Appointment has been made Where: [facility] [address] [place] [address]- Business (1) Medications What How Much When [...] these instructions at home: Medicines ??? Take gnfo-wkt-ryypkiw and prescription medicines only as told by [...] and water are not available, use hand credit and collection manager. ? Change your dressing as told [...] your chest for several days. ??? Take bfnz-ytm-ryyrwie and prescription medicines only as told by [...] Reviewed: 10/04/2019 Elsevier Patient Education ?? 2020 ElseHi-Dis(Mosen) Inc. Heart-Healthy Eating Plan Heart-healthy meal planning [...] Fats and oils Meat fat, or shortening. [place] butter, hydrogenated oils, palm oil, coconut oil, [...] provider. Document Revised: 01/07/2019 Document Reviewed: 12/11/2018 19pay Patient Education ?? 2020 Blurr. Emergency Awareness and Preventative Care STROKE is [...] Assistance with quitting is available by contacting 5-864-ADCT-NOW. This is a free resource providing counseling, [...] range between ( 0.0 and 7.0 ) Grand #: 0.48 K/uL -- Normal range between ( 0.16 and 1.00 ) Eos #: 0.16 x10(3)/uL -- Normal range between ( 0.00 and 0.80 ) Grand %: 8.0 % -- Normal range between [...] was given the opportunity to ask questions. Patient/Blocking Machine Operator Name: Patient/Blocking Machine Operator Signature: Relationship to Patient: Clinician/Hospital Blocking Machine Operator Signature: Date: Electronically signed by Interface, [facility] Conversion Medical Laboratory Scientist Cerner at 03/07/2023 1:44 PM CDT documented in this encounter Plan of Treatment Upcoming Encounters Date Type Department Care Team (Late st Contact Info) Description 09/07/2025 10:45 AM EDT Office Visit [address] [address] Adrienne Dunn MD [address] [place] [address] [address] [place] [address] documented as of this encounter Visit Diagnoses Not on filedocumented in this encounter Care Teams Painter Spray Relationship Specialty Start Date End Date Niranjan Mccarty MD [address] [place] [address] PCP - General Adolescent Medicine 10/15/23 documented as of this encounter
--- OUTSIDE RECORDS SUMMARY | 2025-06-14 10:56 | XMS_ITS | Encounter Summary ---
Author Organization [employer] ([place], [place], [place], [place]) Address [address] [place] [address] Care Team Providers Care Lock Tender Name Role Phone Niranjan Mccarty MD Primary Care Provider [phone] Encounter Details Date Type Department Care Team (Late st Contact Info) Description 06/13/2021 Transcribed Document [facility] Family Medicine [facility] [place] [address] ProviderAkash MD [address] [place], [place] [id number] Social History Tobacco Use Types Packs/Day Years [...] Performed On: 06/13/2021 13:14 EDT by SHERRILL JUÁREZ, RN-Hobbing Press Operator Final Discharge Planning Discharge Arrangements : Patient [...] : Yes Discharge To Care Management : Home/Residential/[facility] or Self Care -01 SHERRILL JUÁREZ, RN-Hobbing Press Operator - 06/13/2021 13:14 EDT documented in this encounter Plan of Treatment Upcoming Encounters Date Type Department Care Team (Late st Contact Info) Description 09/07/2025 10:45 AM EDT Office Visit [facility] [address] [place], [place] [address] [place] [address] [place] [address] [address] [place] [address] documented as of this encounter Visit Diagnoses Not on filedocumented in this encounter Care Teams Lock Tender Relationship Specialty Start Date End Date Niranjan Mccarty MD [address] [place] [address] PCP - General Adolescent Medicine 10/15/23 documented as of this encounter
--- OUTSIDE RECORDS SUMMARY | 2025-06-14 10:56 | XMS_ITS | Encounter Summary ---
Author Organization [employer] ([place], [place], [place], [place]) Address [address] [place] [address] Care Team Providers Care Dry Kiln Operator Helper Name Role Phone Niranjan Mccarty MD Primary Care Provider [phone] Encounter Details Date Type Department Care Team (Late st Contact Info) Description 06/13/2021 Transcribed Document [facility] [place] [address] [place] [address] ProviderAkash MD [address] [place], [place] [address] Social History Tobacco Use Types Packs/Day Years [...] Fats and oils Meat fat, or shortening. [place] butter, hydrogenated oils, palm oil, coconut oil, [...] provider. Document Revised: 01/07/2019 Document Reviewed: 12/11/2018 Elsevier Patient Education ? 2020 Sensbeatvier Inc. Procedures Biventricular Pacemaker Implantation, Care After [...] these instructions at home: Medicines ??? Take uojw-imn-ydatgag and prescription medicines only as told by [...] and water are not available, use hand phlebotomy coordinator. ? Change your dressing as told by [...] your chest for several days. ??? Take hyxk-vri-byiqoxf and prescription medicines only as told by [...] Reviewed: 10/04/2019 Elsevier Patient Education ? 2019 PsychSignal Inc. documented in this encounter Plan of Treatment Upcoming Encounters Date Type Department Care Team (Late st Contact Info) Description 09/07/2025 10:45 AM EDT Office Visit [facility] Electrophysiology [address] [place] [phone] Adrienne Dunn MD [address] [facility] [address] [place] [address] documented as of this encounter Visit Diagnoses Not on filedocumented in this encounter Care Teams Dry Kiln Operator Helper Relationship Specialty Start Date End Date Niranjan Mccarty MD [address] [place] [address] PCP - General Adolescent Medicine 10/15/23 documented as of this encounter
--- OUTSIDE RECORDS SUMMARY | 2025-06-14 10:56 | XMS_ITS | Encounter Summary ---
Author Organization [employer] ([place], [place], [place], [place]) Address [address] [place] [address] Care Team Providers Care Salesperson Corsets Name Role Phone Niranjan Mccarty MD Primary Care Provider [phone] Encounter Details Date Type Department Care Team (Late st Contact Info) Description 06/12/2021 Transcribed Document [facility] [place] [address] [place] [address] ProviderAkash MD [address] [place], [place] [id number] Social History Tobacco Use Types Packs/Day Years Used Date Smoking Tobacco: Never Assessed Comments Unknown Sex and Gender Information Value Date Recorded Sex Assigned at Not on file Legal Sex Female 1:32 PM CDT Gender Identity Not on file Sexual Orientation Not on file documented as of this encounter Miscellaneous Notes * Cerner Conversion Note - Akash Vega MD - 06/12/2021 12:53 PM CDT Pre Procedure Adult Entered On: 06/12/2021 12:59 EDT Performed On: 06/12/2021 12:53 EDT by Nory Farfan RN Height and Weight, Clinical Dosing Height Source : Stated Height Entry Format : [place] Height, Feet : 5 ft(Converted to: 152 cm, 60 Inch) Height, Inches : 7 Inch(Converted to: 0 ft 7 Inch, 17.78 cm) Clinical Height : 170.18 cm Weight Source : Standing scale Weight Entry Format : [place] Clinical Dosing Weight : 65.91 kg Weight, Pounds : 145 lb Body Surface Area (BSA) : 1.77 m2 Body Mass Index : 22.8 kg/m2 [place] Body Weight : 61 kg Nory Farfan [...] Nory Farfan RN - 06/12/2021 12:53 EDT [place] Suicide Severity Rating Scale (C-SSRS) CSSRS Past [...] Daughter Legal Guardian : No Support Person/Patient Weigher Operator : Yes Support Person/Pt Rep Name : daughter- sherley gómez Support Person/Pt Rep Contact Information : gordon [phone] Want Family/Rep/Phys Notified of Admit : No Emergency Contact #1 : NA Emergency Contact #1 Phone Number : NA Emergency Contact #1 Relationship : NA Emergency Contact #2 : NA Emergency Contact #2 Phone Number : NA Emergency Contact #2 Relationship : NA Information Obtained From : Patient Primary Language : Stateless Preferred Communication Mode : Verbal Communication Barrier : None Straw Hat Washer Operator Needed : No Nory Farfan RN - [...] Wrist band (fall risk) on per policy SNOW[place] Hx Falls Immediate/Within 3 Months : No [place] Secondary Diagnosis : No SNOW[place] Use of Ambulatory Aid : Bed rest/Nurse assist SN[place] IV Therapy or IV Access : Yes [place] Gait/Transferring : Normal, bedrest, immobile [place] Mental Status : Oriented to own ability [place] Fall Risk Score : 20 [place] Fall Scale Risk Level : 0-24 Low Risk [place] Fall Interventions : Adequate lighting, Bed in [...] Description 09/07/2025 10:45 AM EDT Office Visit [facility] Electrophysiology [address] [place] [address] Adrienne Dunn MD [address] [place] [address] [address] [place] [address] documented as of this encounter Visit Diagnoses Not on filedocumented in this encounter Care Teams Salesperson Corsets Relationship Specialty Start Date End Date Niranjan Mccarty MD [address] [place] [address] PCP - General Adolescent Medicine 10/15/23 documented as of this encounter
--- OUTSIDE RECORDS SUMMARY | 2025-06-14 10:56 | XMS_ITS | Encounter Summary ---
Author Organization [employer] ([place], [place], [place], [place]) Address [address] [place] [address] Care Team Providers Care Technical Illustrator Name Role Phone Niranjan Mccarty MD Primary Care Provider [phone] Encounter Details Date Type Department Care Team (Late Contact Info) Description 06/13/2021 Transcribed Document [place] Family [place] [facility] [place] [address] ProviderAkash MD [address] [place] [id number] Social History Tobacco Use Types Packs/Day Years [...] it so she can better swallow them. Electronically signed by Sherri Sam Conversion Artificial Breeding Ranch Supervisor Cerner at 03/07/2023 1:47 PM CDT documented in this encounter Plan of Treatment Upcoming Encounters Date Type Department Care Team (Late Contact Info) Description 09/07/2025 10:45 AM EDT Office Visit [facility] Electrophysiology [address] [place] [phone] Adrienne Dunn MD [address] [facility] [address] [place] [address] documented as of this encounter Visit Diagnoses Not on filedocumented in this encounter Care Teams Technical Illustrator Relationship Specialty Start Date End Date Niranjan Mccarty MD [address] [place] [address] PCP - General Adolescent Medicine 10/15/23 documented as of this encounter
--- OUTSIDE RECORDS SUMMARY | 2025-06-14 10:56 | XMS_ITS | Encounter Summary ---
Author Organization [employer] ([place], [place], [place], [place]) Address [address] [place] [address] Care Team Providers Care Sanitor Name Role Phone Niranjan Mccarty MD Primary Care Provider [phone] Encounter Details Date Type Department Care Team (Late st Contact Info) Description 10/10/2019 Transcribed Document [facility] [place] [facility] [place] [address] ProviderAkash MD [address] [place] [address] Social History Tobacco Use Types Packs/Day Years Used Date Smoking Tobacco: Never Assessed Comments Unknown Sex and Gender Information Value Date Recorded Sex Assigned at Not on file Legal Sex Female 1:32 PM CDT Gender Identity Not on file Sexual Orientation Not on file documented as of this encounter Miscellaneous Notes * Cerner Conversion Note - Akash Vega MD - 10/10/2019 9:00 PM MEAT TEAM MEMBER Pain Assessment Entered On: 10/10/2019 22:55 EST [...] Description 09/07/2025 10:45 AM EDT Office Visit [facility] Electrophysiology [address] [place] [address] Adrienne Dunn MD [address] [facility] [address] [place], [place] [phone] documented as of this encounter Visit Diagnoses Not on filedocumented in this encounter Care Teams Sanitor Relationship Specialty Start Date End Date Niranjan Mccarty MD [address] [place] [address] PCP - General Adolescent Medicine 10/15/23 documented as of this encounter
--- OUTSIDE RECORDS SUMMARY | 2025-06-14 10:56 | XMS_ITS | Encounter Summary ---
Author Organization [employer] ([place], [place], [place], [place]) Address [address] [place] [address] Care Team Providers Care School Aide Name Role Phone Niranjan Mccarty MD Primary Care Provider [phone] Encounter Details Date Type Department Care Team (Late st Contact Info) Description 10/10/2019 Transcribed Document [facility] [place] [facility] [place] [address] ProviderAkash MD [address] [place], [place] [address] Social History Tobacco Use Types Packs/Day Years Used Date Smoking Tobacco: Never Assessed Comments Unknown Sex and Gender Information Value Date Recorded Sex Assigned at Not on file Legal Sex Female 1:32 PM CDT Gender Identity Not on file Sexual Orientation Not on file documented as of this encounter Miscellaneous Notes * Cerner Conversion Note - Akash Vega MD - 10/10/2019 11:58 AM INTERNAL SALESPERSON UM Authorization Entered On: 10/10/2019 11:59 EST Performed On: 10/10/2019 11:58 EST by SABRINA MCKEON RN Primary Insurance Authorization Authorization and Policy Numbers : Insurance 1 Health Plan: MEDICARE Policy Number: [id number] Authorization Number: Insurance 2 Health Plan: [facility] Policy Number: [id number] Authorization Number: Insurance Primary Name : MEDICARE Policy Number: [id number] Historical Authorization Comments-Primary : No Authorization Comments Found SABRINA MCKEON RN - 10/10/2019 11:58 EST documented in this encounter Plan of Treatment Upcoming Encounters Date Type Department Care Team (Late st Contact Info) Description 09/07/2025 10:45 AM EDT Office Visit [facility] Electrophysiology [address] [place] [phone] [place] [address] [place] [address] [address] [place] [address] documented as of this encounter Visit Diagnoses Not on filedocumented in this encounter Care Teams School Aide Relationship Specialty Start Date End Date Niranjan Mccarty MD [address] [place] [address] PCP - General Adolescent Medicine 10/15/23 documented as of this encounter
--- OUTSIDE RECORDS SUMMARY | 2025-06-14 10:56 | XMS_ITS | Encounter Summary ---
Author Organization [employer] ([place], [place], [place], [place]) Address [address] [place] [address] Care Team Providers Care Shopping Inspector Name Role Phone Niranjan Mccarty MD Primary Care Provider [phone] Encounter Details Date Type Department Care Team (Late st Contact Info) Description 06/12/2021 Transcribed Document [facility] Family Medicine [facility] [place] [address] ProviderAkash MD [address] [place], [place] [id number] Social History Tobacco Use Types Packs/Day Years Used Date Smoking Tobacco: Never Assessed Comments Unknown Sex and Gender Information Value Date Recorded Sex Assigned at Not on file Legal Sex Female 1:32 PM CDT Gender Identity Not on file Sexual Orientation Not on file documented as of this encounter Miscellaneous Notes * Cerner Conversion Note - Akash Vega MD - 06/12/2021 11:10 PM CDT Admission History, Adult Entered On: 06/12/2021 23:17 EDT Performed On: 06/12/2021 23:10 EDT by Marilyn Ren Non Emp Traveler RN Advance Directive Patient has Advance Directive *Q : No, patient refuses Advance Directive information Marilyn Ren Non Emp Traveler PAPITO - 06/12/2021 23:10 EDT Anesthesia/Transfusion History Family [...] : Oxygen therapy Home Equipment : Cane Marilyn Ren Non Emp Traveler RN - 06/12/2021 23:10 EDT General Info Preferred Name : megha Arrived From : Home Mode of Arrival on Unit : Wheelchair Legal Guardian : Daughter Legal Guardian : No Support Person/Patient Commodity Buyer : Yes Support Person/Pt Rep Name : daughter- sherley gómez Contact Password : Fan Support Person/Pt Rep Contact Information : sherley- [phone] Want Family/Rep/Phys Notified of Admit : No Emergency Contact #1 : NA Emergency Contact #1 Phone Number : NA Emergency Contact #1 Relationship : NA Emergency Contact #2 : NA Emergency Contact #2 Phone Number : NA Emergency Contact #2 Relationship : NA Information Obtained From : Patient Primary Language : Indonesian Preferred Communication Mode : Verbal Communication Barrier : None Shrimp Trawler Needed : Marilyn Ruvalcaba Non Emp Traveler RN - 06/12/2021 23:10 EDT Fall Risk Scales ABCs Fall Injury Risk Identification : Age, Coagulation, Surgery ABC Fall Injury Risk : Moderate to high injury risk SNOWDEN Hx Falls Immediate/Within 3 Months : No Snowden Secondary Diagnosis : Yes SNOWDEN Use of Ambulatory Aid : Bed rest/Nurse assist SNOWDEN IV Therapy or IV Access : Yes Snowden Gait/Transferring : Weak Snowden Mental Status : Oriented to own ability Snowden Fall Risk Score : 45 SNOWDEN Fall Scale Risk Level : 25-45 Medium Risk [place] Fall Interventions : Adequate lighting, Bed in [...] Source : Stated Height Entry Format : [place] Height, Feet : 5 ft(Converted to: 152 cm, 60 Inch) Height, Inches : 7 Inch(Converted to: 0 ft 7 Inch, 17.78 cm) Clinical Height : 170.18 cm Weight Source : Standing scale Weight Entry Format : [place]fe Clinical Dosing Weight : 65.91 kg Weight, Pounds : 145 lb Body Surface Area (BSA) : 1.77 m2 Body Mass Index : 22.8 kg/m2 [place] Body Weight : 61 kg Ramandeepmarine Marilyn J, Non Emp Traveler RN - 06/12/2021 23:10 EDT Infectious Disease History [...] Measles, Scarlet fever Tuberculosis Symptoms : None Marilyn Ren Non Emp Traveler - 06/12/2021 23:10 EDT Influenza Vaccine Asmt, Adult Previous Vaccines from Immunization Schedule : No qualifying data available. Influenza Immunization, Current Season : No Inactivated Flu Vaccine Contraindications : No contraindications to inactivated influenza vaccine Transplant Workup/Recent Transplant : No Order for Influenza Vaccine : Declined Vaccination Marilyn Ren Non Emp Traveler - 06/12/2021 23:10 EDT Pneumococcal Vaccine Previous Vaccines from Immunization Schedule : No qualifying data available. Pneumonia Immunization Received : No Pneumococcal Risk Assessment < Age 65 : N/A- Patient 65 years of age or older Pneumococcal Vaccine Contraindications : No contraindications to pneumococcal vaccine Transplant Workup/Recent Transplant : No Order for Pneumococcal Vaccine : Declined Vaccination MelvinaapolinarMarilyn dangelo Reina Emp Traveler - 06/12/2021 23:10 EDT Order [...] Risk Level : Patient not at risk Marilyn Ren Reina Emp Traveler - 06/12/2021 23:10 EDT [place] Suicide Severity Rating Scale (C-SSRS) CSSRS Past Month Wish to be : No CSSRS Past Month Suicidal Thoughts : No CSSRS Lifetime Suicide Behavior : No Suicide Severity Rating Score : 0 Suicide Severity Rating : No Additional Care Required at this time Marilyn Ren Non Emp Traveler RN - 06/12/2021 23:10 EDT Psychosocial History Do You Have a History of the Following? : Anxiety Currently in Unsafe Situation : No Marilyn Ren Non Emp Traveler RN - [...] Sleep Apnea Risk Level Score : 3 Marilyn Ren Non Emp Traveler RN - [...] With family, Declines to send to security/safe Marilyn Ren Non Emp Traveler RN - 06/12/2021 23:10 EDT documented in this encounter Plan of Treatment Upcoming Encounters Date Type Department Care Team (Late st Contact Info) Description 09/07/2025 10:45 AM EDT Office Visit [facility] Electrophysiology [address] [place] [address] Adrienne Dunn MD [address] [place] [address] [address] [place] [address] documented as of this encounter Visit Diagnoses Not on filedocumented in this encounter Care Teams Shopping Inspector Relationship Specialty Start Date End Date Niranjan Mccarty MD [address] [facility] [address] [place] [address] PCP - General Adolescent Medicine 10/15/23 documented as of this encounter
--- OUTSIDE RECORDS SUMMARY | 2025-06-14 10:56 | XMS_ITS | Encounter Summary ---
Author Organization [employer] ([place], [place], [place], [place]) Address [address] [place] [address] Care Team Providers Care Assistant Business Manager Name Role Phone Niranjan Mccarty MD Primary Care Provider [phone] Encounter Details Date Type Department Care Team (Late st Contact Info) Description 08/23/2021 Transcribed Document [facility] Family Medicine [facility] [place] [address] ProviderAkash MD [address] [place] [id number] Social History Tobacco Use Types Packs/Day Years [...] 08/23/2021 22:15 EDT Electronically signed by Cecy [facility] Conversion Library Circulation Assistant Cerner at 03/07/2023 1:36 PM CDT documented in this encounter Plan of Treatment Upcoming Encounters Date Type Department Care Team (Late st Contact Info) Description 09/07/2025 10:45 AM EDT Office Visit [facility] Electrophysiology [address] [place] [address] Adrienne Dunn MD [address] [place] [address] [address] [place] [address] documented as of this encounter Visit Diagnoses Not on filedocumented in this encounter Care Teams Assistant Business Manager Relationship Specialty Start Date End Date Niranjan Mccarty MD [address] [place] [address] PCP - General Adolescent Medicine 10/15/23 documented as of this encounter
--- OUTSIDE RECORDS SUMMARY | 2025-06-14 10:56 | XMS_ITS | Encounter Summary ---
Author Organization [employer] ([place], [place], [place], [place]) Address [address] [place] [address] Care Team Providers Care Casing Splitter Name Role Phone Niranjan Mccarty MD Primary Care Provider [phone] Encounter Details Date Type Department Care Team (Late st Contact Info) Description 08/23/2021 Transcribed Document [facility] Family Medicine [facility] [place] [address] ProviderAkash MD [address] [place] [address] Social History Tobacco Use Types Packs/Day Years Used Date Smoking Tobacco: Never Assessed Comments Unknown Sex and Gender Information Value Date Recorded Sex Assigned at Not on file Legal Sex Female 1:32 PM CDT Gender Identity Not on file Sexual Orientation Not on file documented as of this encounter Miscellaneous Notes * Cerner Conversion Note - Akash Vega MD - 08/23/2021 6:35 PM CDT Electronically signed by Cecy [facility] Conversion Winding Department Supervisor Cerner at 03/07/2023 1:37 PM CDT documented in this encounter Plan of Treatment Upcoming Encounters Date Type Department Care Team (Late st Contact Info) Description 09/07/2025 10:45 AM EDT Office Visit [facility] Electrophysiology [address] [place] [address] Adrienne Dunn MD [address] [place] [address] [address] [place] [address] documented as of this encounter Visit Diagnoses Not on filedocumented in this encounter Care Teams Casing Splitter Relationship Specialty Start Date End Date Niranjan Mccarty MD [address] [place] [address] PCP - General Adolescent Medicine 10/15/23 documented as of this encounter
--- OUTSIDE RECORDS SUMMARY | 2025-06-14 10:56 | XMS_ITS | Encounter Summary ---
Author Organization [employer] ([place], [place], [place], [place]) Address [address] [place] [address] Care Team Providers Care Mold Maker Name Role Phone Niranjan Mccarty MD Primary Care Provider [phone] Encounter Details Date Type Department Care Team (Late st Contact Info) Description 06/13/2021 Transcribed Document [facility] Family Medicine [address] [place] [address] ProviderAkash MD [address] [place] [address] Social History Tobacco Use Types [...] Vega MD - 06/13/2021 3:12 PM CDT [facility] [place] [address] WILD TAL KELLY :1935 Visit Time:06/12/2021 Your Visit Summary [...] Not Drive Follow-Up Appointments Follow Up with EAW DUNN When 06/20/2021 01:00 PM EDT Comments Wound/device check in [address] Dunn Appointment has been made Where: [facility] [address] [place] [address]- [employer] (1) Medications What How Much When Instructions [...] these instructions at home: Medicines ??? Take thqd-hdo-cqfoywz and prescription medicines only as told by [...] and water are not available, use hand product lister. ? Change your dressing as told by [...] your chest for several days. ??? Take dcfi-ggq-saqubto and prescription medicines only as told by [...] Reviewed: 10/04/2019 Elsevier Patient Education ?? 2020 [employer] Heart-Healthy Eating Plan Heart-healthy meal planning [...] Fats and oils Meat fat, or shortening. [place] butter, hydrogenated oils, palm oil, coconut oil, [...] provider. Document Revised: 01/07/2019 Document Reviewed: 12/11/2018 ElseQumas Patient Education ?? 2020 [employer]. Emergency Awareness and Preventative Care STROKE is [...] Assistance with quitting is available by contacting 7-005-MVOL-NOW. This is a free resource providing counseling, [...] range between ( 0.0 and 7.0 ) Stearns #: 0.48 K/uL -- Normal range between ( 0.16 and 1.00 ) Eos #: 0.16 x10(3)/uL -- Normal range between ( 0.00 and 0.80 ) Stearns %: 8.0 % -- Normal range between [...] ( 9.2 and 12.0 ) Patient Name:TAL PEGUERO I have received and understand this information and was given the opportunity to ask questions. Patient/Kiosk Sales Representative Name: Patient/Kiosk Sales Representative Signature: Relationship to Patient: Clinician/Hospital Kiosk Sales Representative Signature: Date: Electronically signed by Cecy, [employer] Conversion Lithographic Photographer Apprentice Cerner at 03/07/2023 1:42 PM CDT documented in this encounter Plan of Treatment Upcoming Encounters Date Type Department Care Team (Late st Contact Info) Description 09/07/2025 10:45 AM EDT Office Visit [facility] Electrophysiology [address] [place], [place] [phone] Ewa Dunn MD [address] [place] [address] [address] [place] [id number] documented as of this encounter Visit Diagnoses Not on filedocumented in this encounter Care Teams Mold Maker Relationship Specialty Start Date End Date Niranjan Mccarty MD [address] [place] [address] PCP - General Adolescent Medicine 10/15/23 documented as of this encounter
[2025-06-14 13:09] LABS: PHA INR Fingerstick 3.9 (0.9-1.1)
== END 2025-06-14 13:20 ==
LOC: ACC 10:53
PROVIDERS: PCP Internal Medicine Adolescent Medicine; Visit Provider Internal Medicine Adolescent Medicine
DX: I48.91 Unspecified atrial fibrillation (principal); Z79.01 Long term (current) use of anticoagulants
CPT/HCPCS: 85610; 99211; G0463

== ENCOUNTER 2025-06-28 11:33 | Outpatient (CLI) | payer MEDICARE, OTHER, SELFPAY ==
--- OUTSIDE RECORDS SUMMARY | 2025-06-28 11:40 | XMS_ITS | Encounter Summary ---
Author Organization [employer] ([place], [place], [place], [place]) Address [address] [place] [address] Care Team Providers Care Pedal Assembler Name Role Phone Niranjan Mccarty MD Primary Care Provider [phone] Encounter Details Date Type Department Care Team (Late st Contact Info) Description 10/09/2019 Transcribed Document [facility] Family Medicine [facility] [place] [address] ProviderAkash MD [address] [place] [address] Social History Tobacco Use Types Packs/Day Years Used Date Smoking Tobacco: Never Assessed Comments Unknown Sex and Gender Information Value Date Recorded Sex Assigned at Not on file Legal Sex Female 1:32 PM CDT Gender Identity Not on file Sexual Orientation Not on file documented as of this encounter Miscellaneous Notes * Cerner Conversion Note - Akash Vega MD - 10/09/2019 9:22 PM VETERINARY RADIOLOGIST Patient: TRAN PEGUERO Age: 83 Years Sex: Female : 1935 Chief Complaint Chest pain Primary Care Provider NIRANJAN M[facility]IS [facility] History of Present Illness Patient is an 83-year-old female with past medical history of hypertension, hyperlipidemia, atrial fibrillation, SSS status post pacemaker placement, chronic anticoagulation with Coumadin, COPD on home oxygen, gastric ulcer who presented to [facility] ER today with complaints of chest [...] any, fever or chills. Lab workup at [facility] showed WBC count 5.6, hemoglobin 11.7, [...] significant chest pain. Patient requested transfer to [facility] to be evaluated by her systems analyst engineer here. Review of Systems Pertinent positives and [...] Description 09/07/2025 10:45 AM EDT Office Visit [address] [address] Adrienne Dunn MD [address] [facility] [address] [place], [place] [phone] documented as of this encounter Visit Diagnoses Not on filedocumented in this encounter Care Teams Pedal Assembler Relationship Specialty Start Date End Date Niranjan Mccarty MD [address] [place] [address] PCP - General Adolescent Medicine 10/15/23 documented as of this encounter
--- OUTSIDE RECORDS SUMMARY | 2025-06-28 11:40 | XMS_ITS | Encounter Summary ---
Author Organization [employer] ([place], [place], [place], [place]) Address [address] [place] [address] Care Team Providers Care Napper Runner Name Role Phone Niranjan Mccarty MD Primary Care Provider [phone] Encounter Details Date Type Department Care Team (Late st Contact Info) Description 10/11/2019 Transcribed Document [facility] Family [facility] [place] [address] ProviderAkash MD [address] [place] [id number] Social History Tobacco Use Types Packs/Day Years Used Date Smoking Tobacco: Never Assessed Comments Unknown Sex and Gender Information Value Date Recorded Sex Assigned at Not on file Legal Sex Female 1:32 PM CDT Gender Identity Not on file Sexual Orientation Not on file documented as of this encounter Miscellaneous Notes * Cerner Conversion Note - Akash Vega MD - 10/11/2019 9:21 AM LOZENGE DOUGH MIXER Patient: TRAN PEGUERO Age: 83 years Sex: [...] Description 09/07/2025 10:45 AM EDT Office Visit [facility] Electrophysiology [address] [place] [address] Adrienne Dunn MD [address] [place] [address] [address] [place] [address] documented as of this encounter Visit Diagnoses Not on filedocumented in this encounter Care Teams Napper Runner Relationship Specialty Start Date End Date Niranjan Mccarty MD [address] [place] [address] PCP - General Adolescent Medicine 10/15/23 documented as of this encounter
--- OUTSIDE RECORDS SUMMARY | 2025-06-28 11:40 | XMS_ITS | Encounter Summary ---
Author Organization [employer] ([place], [place], [place], [place]) Address [address] [place] [address] Care Team Providers Care Pci Security Consultant Name Role Phone Niranjan Mccarty MD Primary Care Provider [phone] Encounter Details Date Type Department Care Team (Late st Contact Info) Description 10/12/2019 Transcribed Document [facility] Cardiology [address] [place] [address] Constantine Galvan MD [address] [place] [address] [address] [place] [address] Social History Tobacco Use Types Packs/Day Years [...] Normal study. 2. Ejection fraction is 60%. /[id number] MD POLINA Carvalho/AQ / POLINA / SIMAL /[id number] documented in this encounter Plan of Treatment Upcoming Encounters Date Type Department Care Team (Late st Contact Info) Description 09/07/2025 10:45 AM EDT Office Visit [facility] Electrophysiology [address] [place], [place] [address] Adrienne Dunn MD [address] [place] [address] [address] [place] [address] documented as of this encounter Visit Diagnoses Not on filedocumented in this encounter Care Teams Pci Security Consultant Relationship Specialty Start Date End Date Niranjan Mccarty MD [address] [place] [address] PCP - General Adolescent Medicine 10/15/23 documented as of this encounter
--- OUTSIDE RECORDS SUMMARY | 2025-06-28 11:40 | XMS_ITS | Encounter Summary ---
Author Organization [employer] ([place], [place], [place], [place]) Address [address] [place] [address] Care Team Providers Care Exercise Teacher Name Role Phone Niranjan Mccarty MD Primary Care Provider [phone] Encounter Details Date Type Department Care Team (Late st Contact Info) Description 10/12/2019 Transcribed Document [facility] [place] Family Medicine [address] [place] [address] ProviderAkash MD [address] [place], [place] [phone] Social History Tobacco Use Types Packs/Day Years Used Date Smoking Tobacco: Never Assessed Comments Unknown Sex and Gender Information Value Date Recorded Sex Assigned at Not on file Legal Sex Female 1:32 PM CDT Gender Identity Not on file Sexual Orientation Not on file documented as of this encounter Miscellaneous Notes * Cerner Conversion Note - Akash Vega MD - 10/12/2019 9:39 AM DIRECTOR LOAN Stroke/Warfarin Instructions Entered On: 10/12/2019 9:39 EST [...] - 10/12/2019 9:39 EST Electronically signed by [facility] Conversion Oil Burner Cerner at 03/07/2023 1:37 PM CDT documented in this encounter Plan of Treatment Upcoming Encounters Date Type Department Care Team (Late st Contact Info) Description 09/07/2025 10:45 AM EDT Office Visit [facility] Electrophysiology [address] [place] [address] Adrienne Dunn MD [address] [place] [address] [address] [place] [phone] documented as of this encounter Visit Diagnoses Not on filedocumented in this encounter Care Teams Exercise Teacher Relationship Specialty Start Date End Date Niranjan Mccarty MD [address] [place] [address] PCP - General Adolescent Medicine 10/15/23 documented as of this encounter
--- OUTSIDE RECORDS SUMMARY | 2025-06-28 11:40 | XMS_ITS | Encounter Summary ---
Author Organization [employer] ([place], [place], [place], [place]) Address [address] [place] [address] Care Team Providers Care Lawn Care Professional Name Role Phone Niranjan Mccarty MD Primary Care Provider [phone] Encounter Details Date Type Department Care Team (Late st Contact Info) Description 10/10/2019 Transcribed Document [facility] Family Medicine [address] [place] [address] ProviderAkash MD [address] [place], [place] [address] Social History Tobacco Use Types Packs/Day Years Used Date Smoking Tobacco: Never Assessed Comments Unknown Sex and Gender Information Value Date Recorded Sex Assigned at Not on file Legal Sex Female 1:32 PM CDT Gender Identity Not on file Sexual Orientation Not on file documented as of this encounter Miscellaneous Notes * Cerner Conversion Note - Akash ProviderMD - 10/10/2019 9:00 AM APPAREL TRIMMINGS SALES REPRESENTATIVE Pain Assessment Entered On: 10/10/2019 12:45 EST [...] form. Electronically signed by Sherri Sam Conversion Multimedia Instructional Designer Cerner at 03/07/2023 1:51 PM CDT documented in this encounter Plan of Treatment Upcoming Encounters Date Type Department Care Team (Late st Contact Info) Description 09/07/2025 10:45 AM EDT Office Visit [facility] Electrophysiology [address] [place] [address] Adrienne Dunn MD [address] [place] [address] [address] [place] [address] documented as of this encounter Visit Diagnoses Not on filedocumented in this encounter Care Teams Lawn Care Professional Relationship Specialty Start Date End Date Niranjan Mccarty MD [address] [place] [address] PCP - General Adolescent Medicine 10/15/23 documented as of this encounter
--- OUTSIDE RECORDS SUMMARY | 2025-06-28 11:40 | XMS_ITS | Encounter Summary ---
Author Organization [employer] ([place], [place], [place], [place]) Address [address] [place] [address] Care Team Providers Care Medication Manager Name Role Phone Niranjan Mccarty MD Primary Care Provider [phone] Encounter Details Date Type Department Care Team (Late st Contact Info) Description 10/09/2019 Transcribed Document [facility] Family Medicine [facility] [place] [address] ProviderAkash MD [address] [place] [address] Social History Tobacco Use Types [...] - Akash ProviderMD - 10/09/2019 8:24 PM JUKEBOX CHECKER Admission History, Adult Entered On: 10/09/2019 21:47 [...] megha Legal Guardian : No Support Person/Patient Clerical Aide Teacher : Yes Support Person/Pt Rep Name : daughter- sherley MEKA MANSFIELD, PAPITO - 10/09/2019 21:40 EST Maya Garcia RN - 10/12/2019 10:14 EST Support Person/Pt Rep Contact Information : gordon [phone] Want Family/Rep/Phys Notified of Admit : No Emergency Contact #1 : Sandee Emergency Contact #1 Emergency Contact #1 Relationship : daughter Emergency Contact #2 : Dana Emergency Contact #2 Emergency Contact #2 Relationship : sister in law Information Obtained From : Patient Primary Language : [place] Preferred Communication Mode : Verbal Communication Barrier [...] Scale Risk Level : 25-45 Medium Risk [place] Fall Interventions : Adequate lighting, Assistive devices [...] Source : Stated Height Entry Format : [place] Height, Feet : 5 ft(Converted to: 152 cm, 60 Inch) Height, Inches : 5 Inch(Converted to: 0 ft 5 Inch, 12.70 cm) Clinical Height : 165.1 cm Weight Source : Bed scale Weight Entry Format : [place] Clinical Dosing Weight : 65.51 kg Weight, Pounds : 144 lb Weight, Ounces : 2 oz Body Surface Area (BSA) : 1.72 m2 Body Mass Index : 24 kg/m2 [place] Body Weight : 57 kg MEKA MANSFIELD [...] MEKA MANSFIELD RN - 10/09/2019 21:40 EST [place] Suicide Severity Rating Scale (C-SSRS) CSSRS Past [...] 10/09/2019 21:40 EST Electronically signed by Cecy [facility] Conversion Brim Stitcher Cerner at 03/07/2023 1:48 PM CDT documented in this encounter Plan of Treatment Upcoming Encounters Date Type Department Care Team (Late st Contact Info) Description 09/07/2025 10:45 AM EDT Office Visit [facility] Electrophysiology [address] [place] [address] [place] [address] [place] [address] [address] [place] [address] documented as of this encounter Visit Diagnoses Not on filedocumented in this encounter Care Teams Medication Manager Relationship Specialty Start Date End Date Niranjan Mccarty MD [address] [place] [address] PCP - General Adolescent Medicine 10/15/23 documented as of this encounter
--- OUTSIDE RECORDS SUMMARY | 2025-06-28 11:40 | XMS_ITS | Encounter Summary ---
Author Organization [employer] ([place], [place], [place], [place]) Address [address] [place] [address] Care Team Providers Care Pipe Machine Operator Name Role Phone Niranjan Mccarty MD Primary Care Provider [phone] Encounter Details Date Type Department Care Team (Late st Contact Info) Description 10/11/2019 Transcribed Document [facility] [place] Family Medicine [facility] [address] ProviderAkash MD [address] [place], [place] [address] Social History Tobacco Use Types Packs/Day Years Used Date Smoking Tobacco: Never Assessed Comments Unknown Sex and Gender Information Value Date Recorded Sex Assigned at Not on file Legal Sex Female 1:32 PM CDT Gender Identity Not on file Sexual Orientation Not on file documented as of this encounter Miscellaneous Notes * Cerner Conversion Note - Akash Vega MD - 10/11/2019 3:28 PM ENROBING MACHINE OPERATOR Initial Discharge Planning Entered On: 10/11/2019 15:33 EST Performed On: 10/11/2019 15:28 EST by MEAGHAN DIXON Rn-Filling Operator Initial Assessment I Previously Documented Living Environment : No qualifying data available. Living Situation : Home Patient Lives With : Spouse Emergency Contact #1 : Sandee Emergency Contact #1 Emergency Contact #1 Relationship : daughter Emergency Contact #2 : Dana Emergency Contact #2 Emergency Contact #2 Relationship : sister in law Medical Durable Power of Bank Note Designer Name : Yes Legal Guardian : No MEAGHAN DIXON Rn-Filling Operator - 10/11/2019 15:28 EST Initial Assessment II Sensory and Motor Deficits : None Deficit Description : however, says she has a transport chair. MEAGHAN DIXON Rn-Filling Operator - 10/11/2019 15:28 EST Discharge Needs I Anticipated Discharge Date : 10/14/2019 EST Current Home Treatment/Equipment : Current Home Treatment/Equipment No qualifying data available. Post Acute/Home Treatments : None Documentation Status Complete : Yes MEAGHAN DIXON Rn-Filling Operator - 10/11/2019 15:28 EST Discharge Needs II Professional Skilled Services : Professional Skilled Services No qualifying data available. Needs Assistance with Transportation : Maybe Discharge Options Discussed with Patient : Home Health, Outpatient services MEAGHAN DIXON Rn-Filling Operator - 10/11/2019 15:28 EST Narrative Note Narrative Note : RRS: Low 34 RN casde condominium manager met with pt at the bedside. [...] portable oxygen tank at dc. MEAGHAN DIXON Rn-Filling Operator - 10/11/2019 15:28 EST documented in this encounter Plan of Treatment Upcoming Encounters Date Type Department Care Team (Late st Contact Info) Description 09/07/2025 10:45 AM EDT Office Visit [facility] Electrophysiology [address] [place] [address] Adrienne Dunn MD [address] [facility] [address] [place] [address] documented as of this encounter Visit Diagnoses Not on filedocumented in this encounter Care Teams Pipe Machine Operator Relationship Specialty Start Date End Date Niranjan Mccarty MD [address] [place] [address] PCP - General Adolescent Medicine 10/15/23 documented as of this encounter
--- OUTSIDE RECORDS SUMMARY | 2025-06-28 11:40 | XMS_ITS | Encounter Summary ---
Author Organization [employer] ([place], [place], [place], [place]) Address [address] [place] [address] Care Team Providers Care Underground Utility Locator Name Role Phone Niranjan Mccarty MD Primary Care Provider [phone] Encounter Details Date Type Department Care Team (Late st Contact Info) Description 10/09/2019 Transcribed Document [facility] [facility] [address] ProviderAkash MD [address] [place] [address] Social History Tobacco Use Types Packs/Day [...] Akash Vega MD - 10/09/2019 9:38 PM FUNERAL HOME DIRECTOR Education-Wound Care Entered On: 10/09/2019 23:43 EST Performed On: 10/09/2019 21:38 EST by MEKA MANSFIELD RN Teaching/Learning Assessment Barriers To Learning : None evident Individuals Taught : Patient Readiness to Learn : Cooperative Learning Style Preferences Patient : Verbal explanation Learning Style Preferences Family : Verbal explanation MEKA MANSFIELD RN - 10/09/2019 23:43 EST Electronically signed by Cecy [facility] Conversion Rental Clerk Cerner at 03/07/2023 1:41 PM CDT documented in this encounter Plan of Treatment Upcoming Encounters Date Type Department Care Team (Late st Contact Info) Description 09/07/2025 10:45 AM EDT Office Visit [facility] Electrophysiology [address] [place] [phone] Adrienne Dunn MD [address] [facility] [address] [place], [place] [id number] documented as of this encounter Visit Diagnoses Not on filedocumented in this encounter Care Teams Underground Utility Locator Relationship Specialty Start Date End Date Niranjan Mccarty MD [address] [place] [address] PCP - General Adolescent Medicine 10/15/23 documented as of this encounter
--- OUTSIDE RECORDS SUMMARY | 2025-06-28 11:40 | XMS_ITS | Encounter Summary ---
Author Organization [employer] ([place], [place], [place], [place]) Address [address] [place] [place] [address] Care Team Providers Care Hospital Chaplain Name Role Phone Niranjan Mccarty MD Primary Care Provider [phone] Encounter Details Date Type Department Care Team (Late st Contact Info) Description 10/11/2019 Transcribed Document [facility] Family [facility] [place] [address] ProviderAkash MD [address] [place] [address] Social History Tobacco Use Types Packs/Day Years Used Date Smoking Tobacco: Never Assessed Comments Unknown Sex and Gender Information Value Date Recorded Sex Assigned at Not on file Legal Sex Female 1:32 PM CDT Gender Identity Not on file Sexual Orientation Not on file documented as of this encounter Miscellaneous Notes * Cerner Conversion Note - Akash ProviderMD - 10/11/2019 2:00 AM DIRECTOR OF DIGITAL MARKETING Airport Shuttle Driver Details Entered On: 10/11/2019 2:03 EST Performed [...] Description 09/07/2025 10:45 AM EDT Office Visit [facility] Electrophysiology [address] [place] [phone] Adrienne Dunn MD [address] [facility] [address] [place] [address] documented as of this encounter Visit Diagnoses Not on filedocumented in this encounter Care Teams Hospital Chaplain Relationship Specialty Start Date End Date Niranjan Mccarty MD [address] [place] [address] PCP - General Adolescent Medicine 10/15/23 documented as of this encounter
--- OUTSIDE RECORDS SUMMARY | 2025-06-28 11:40 | XMS_ITS | Encounter Summary ---
Author Organization [employer] ([place], [place], [place], [place]) Address [address] [place] [address] Care Team Providers Care Fast Food Services Manager Name Role Phone Niranjan Mccarty MD Primary Care Provider [phone] Encounter Details Date Type Department Care Team (Late st Contact Info) Description 10/11/2019 Transcribed Document [facility] [place] [facility] [place] [address] ProviderAkash MD [address] [place] [address] Social History Tobacco Use Types Packs/Day [...] Akash Vega MD - 10/11/2019 9:00 PM MOLD YARD WORKER Pain Assessment Entered On: 10/12/2019 6:31 EST Performed On: 10/11/2019 23:11 EST by MAXX BARRERA, RN Intervention Information: traMADol Performed by MAXX BARRERA RN on 10/11/2019 22:11:00 EST traMADol,50mg Oral Pain Assessment Pain Assessment : Follow-up assessment Pain Scale Goal : 4 Pain Improved by Intervention : Yes MAXX BARRERA, RN - 10/12/2019 6:31 EST Electronically signed by Cecy [facility] Conversion Natural Resources Manager Cerner at 03/07/2023 1:48 PM CDT documented in this encounter Plan of Treatment Upcoming Encounters Date Type Department Care Team (Late st Contact Info) Description 09/07/2025 10:45 AM EDT Office Visit [facility] Electrophysiology [address] [place] [address] Adrienne Dunn MD 14[address] [facility] [address] [place], [place] [phone] documented as of this encounter Visit Diagnoses Not on filedocumented in this encounter Care Teams Fast Food Services Manager Relationship Specialty Start Date End Date Niranjan Mccarty MD [address] [place] [address] PCP - General Adolescent Medicine 10/15/23 documented as of this encounter
--- OUTSIDE RECORDS SUMMARY | 2025-06-28 11:40 | XMS_ITS | Encounter Summary ---
Author Organization [employer] ([place], [place], [place], [place]) Address [address] [place] [address] Care Team Providers Care General Internist Name Role Phone Niranjan Mccarty MD Primary Care Provider [phone] Encounter Details Date Type Department Care Team (Late st Contact Info) Description 10/12/2019 Transcribed Document [facility] Family Medicine [address] [place] [address] ProviderAkash MD [address] [place] [address] Social History Tobacco Use Types Packs/Day [...] Akash Vega MD - 10/12/2019 5:15 PM SERVICE LEARNING COORDINATOR [facility] [place], [place] [id number] TRAN PEGUERO KELLY :1935 Visit Time:10/09/2019 Your [...] Call for follow up appointment Where: [address] [facility] [address] [place] [address]- Follow Up with VIRY ESTRADA MD-CAR When Within 1 to 2 weeks Comments Call for follow up appointment Where: [address] [facility] [address] [place] [address]- Follow Up with NIRANJAN MORRIS MD-[facility] When Within 2 to 4 weeks Where: [address] Warfarin Instructions Indication for Warfarin Anticoagulation: [...] you start to feel better. ??? Take szsr-nya-ngderxl and prescription medicines only as told by [...] 04/21/2009 Document Revised: 07/28/2017 Document Reviewed: 07/28/2017 [employer] Interactive Patient Education ?? 2019 [employer]. Emergency Awareness and Preventative Care STROKE is [...] Assistance with quitting is available by contacting 0-020-QOYY-NOW. This is a free resource providing counseling, [...] range between ( 0.0 and 7.0 ) [facility] #: 0.75 K/uL -- Normal range between ( 0.16 and 1.00 ) [employer] #: 0.20 x10(3)/uL -- Normal range between ( 0.00 and 0.80 ) [facility] %: 10.3 % -- Normal range between [...] was given the opportunity to ask questions. Patient/Residence Hall Director Name: Patient/Residence Hall Director Signature: Relationship to Patient: Clinician/Hospital Residence Hall Director Signature: Date: documented in this encounter Plan of Treatment Upcoming Encounters Date Type Department Care Team (Late st Contact Info) Description 09/07/2025 10:45 AM EDT Office Visit [facility] Electrophysiology [address] [place] [address] Adrienne Dunn MD [address] [facility] [address] [place] [phone] documented as of this encounter Visit Diagnoses Not on filedocumented in this encounter Care Teams General Internist Relationship Specialty Start Date End Date Niranjan Mccarty MD [address] [place] [address] PCP - General Adolescent Medicine 10/15/23 documented as of this encounter
--- OUTSIDE RECORDS SUMMARY | 2025-06-28 11:40 | XMS_ITS | Encounter Summary ---
Author Organization [employer] ([place], [place], [place], [place]) Address [address] [place] [address] Care Team Providers Care Comptometer Operator Name Role Phone Niranjan Mccarty MD Primary Care Provider [phone] Encounter Details Date Type Department Care Team (Late st Contact Info) Description 10/09/2019 Transcribed Document [facility] [place] [facility] [place] [address] ProviderAkash MD [address] [place] [id number] Social History Tobacco Use Types Packs/Day Years Used Date Smoking Tobacco: Never Assessed Comments Unknown Sex and Gender Information Value Date Recorded Sex Assigned at Not on file Legal Sex Female 1:32 PM CDT Gender Identity Not on file Sexual Orientation Not on file documented as of this encounter Miscellaneous Notes * Cerner Conversion Note - Akash Vega MD - 10/09/2019 9:18 PM STITCHER TAPE CONTROLLED MACHINE Evaluation, Physical Therapy Entered On: 10/10/2019 10:57 [...] VAN MCKEON PT - 10/10/2019 10:39 EST [facility] Topics Physical Therapy Education Grid Role of [...] VAN MCKEON, PT - 10/10/2019 10:39 EST Fws Faculty Assistant Goals Mobility/Bed Mobility LTG PT Grid Goal [...] with small steps. Patient also transfered to [facility] with supervision and required extended time. Patient [...] VAN MCKEON, PT - 10/10/2019 10:39 EST [place] PT Charges PT Therap. Exercise 15 min : 1 PT Ther Activities Ea 15 Min : 1 PT Eval Moderate Complexity : 1 VAN MCKEON, PT - 10/10/2019 10:39 EST Electronically signed by [facility] Conversion Collection Specialist Cerner at 03/07/2023 1:23 PM CDT documented in this encounter Plan of Treatment Upcoming Encounters Date Type Department Care Team (Late st Contact Info) Description 09/07/2025 10:45 AM EDT Office Visit [facility] Electrophysiology [address] [place] [address] Adrienne Dunn MD [address] [facility] [address] [place] [address] documented as of this encounter Visit Diagnoses Not on filedocumented in this encounter Care Teams Comptometer Operator Relationship Specialty Start Date End Date Niranjan Mccarty MD [address] [place] [address] PCP - General Adolescent Medicine 10/15/23 documented as of this encounter
--- OUTSIDE RECORDS SUMMARY | 2025-06-28 11:40 | XMS_ITS | Encounter Summary ---
Author Organization [employer] ([place], [place], [place], [place]) Address [address] [place] [address] Care Team Providers Care Special Tester Name Role Phone Niranjan Mccarty MD Primary Care Provider [phone] Encounter Details Date Type Department Care Team (Late st Contact Info) Description 10/12/2019 Transcribed Document [facility] Cardiology [address] [place] [address] [place] [address] [place] [address] [address] [place] [address] Social History Tobacco Use Types Packs/Day Years [...] 1935 Associated Diagnoses: None Author: ADI DRIVER, ENDOSCOPE TECHNICIAN-INT Basic Information PCP: NIRANJAN MORRIS MD Flake Miller Helper: Cole SAMUEL Subjective NAD. No complaints of [...] Normal strength, No deformity. Integumentary: Warm, Dry, [place], Intact, No rash. Neurologic: Alert, Oriented, No [...] Description 09/07/2025 10:45 AM EDT Office Visit [facility] Electrophysiology [address] [place] [address] Adrienne Dunn MD [address] [place] [address] [address] [place] [id number] documented as of this encounter Visit Diagnoses Not on filedocumented in this encounter Care Teams Special Tester Relationship Specialty Start Date End Date Niranjan Mccarty MD [address] [place] [address] PCP - General Adolescent Medicine 10/15/23 documented as of this encounter
--- OUTSIDE RECORDS SUMMARY | 2025-06-28 11:40 | XMS_ITS | Encounter Summary ---
Author Organization [employer] ([place], [place]) Address [address] [place] [address] Care Team Providers Care Manager Hotel Name Role Phone Niranjan Mccarty MD Primary Care Provider [phone] Encounter Details Date Type Department Care Team (Late st Contact Info) Description 10/11/2019 Transcribed Document [facility] Cardiology [address] [place] [address] [place] [address] [place] [address] [address] [place] [address] Social History Tobacco Use Types Packs/Day Years [...] MD-CAR Basic Information PCP: NIRANJAN MORRIS MD District Manager Primary Care Sales: Cole SAMUEL Subjective no chest pain. Health [...] of motion, Normal strength. Integumentary: Warm, Dry, [place]. Neurologic: Alert, Oriented. Psychiatric: Cooperative, Appropriate mood [...] Office Visit [facility] Electrophysiology [address] [place] [address] Adrienne Dunn MD [address] [facility] [address] [place] [address] documented as of this encounter Visit Diagnoses Not on filedocumented in this encounter Care Teams Manager Hotel Relationship Specialty Start Date End Date Niranjan Mccarty MD [address] [place] [address] PCP - General Adolescent Medicine 10/15/23 documented as of this encounter
--- OUTSIDE RECORDS SUMMARY | 2025-06-28 11:40 | XMS_ITS | Encounter Summary ---
Author Organization [employer] ([place], [place], [place], [place]) Address [address] [place] [address] Care Team Providers Care Cotton Sampler Name Role Phone Niranjan Mccarty MD Primary Care Provider [phone] Encounter Details Date Type Department Care Team (Late st Contact Info) Description 10/11/2019 Transcribed Document [facility] [facility] [place] [address] ProviderAkash MD [address] [place] [address] Social History Tobacco Use Types Packs/Day Years Used Date Smoking Tobacco: Never Assessed Comments Unknown Sex and Gender Information Value Date Recorded Sex Assigned at Not on file Legal Sex Female 1:32 PM CDT Gender Identity Not on file Sexual Orientation Not on file documented as of this encounter Miscellaneous Notes * Cerner Conversion Note - Historical ProviderMD - 10/11/2019 12:11 PM PAINTING SUPERVISOR Attempt to Treat, PT Entered On: 10/11/2019 [...] 10/11/2019 12:11 EST Electronically signed by Cecy [facility] Conversion Sciences Dean Cerner at 03/07/2023 1:24 PM CDT documented in this encounter Plan of Treatment Upcoming Encounters Date Type Department Care Team (Late st Contact Info) Description 09/07/2025 10:45 AM EDT Office Visit [facility] Electrophysiology [address] [place] [address] Adrienne Dunn MD [address] [facility] [address] [place], [place] [phone] documented as of this encounter Visit Diagnoses Not on filedocumented in this encounter Care Teams Cotton Sampler Relationship Specialty Start Date End Date Niranjan Mccarty MD [address] [place] [address] PCP - General Adolescent Medicine 10/15/23 documented as of this encounter
--- OUTSIDE RECORDS SUMMARY | 2025-06-28 11:40 | XMS_ITS | Encounter Summary ---
Author Organization [employer] ([place], [place], [place], [place]) Address [address] [place] [address] Care Team Providers Care Rental Coordinator Name Role Phone Niranjan Mccarty MD Primary Care Provider [phone] Encounter Details Date Type Department Care Team (Late st Contact Info) Description 10/12/2019 Transcribed Document [facility] [place] [facility] [place] [address] ProviderAkash MD [address] [place], [place] [id number] Social History Tobacco Use Types Packs/Day Years Used Date Smoking Tobacco: Never Assessed Comments Unknown Sex and Gender Information Value Date Recorded Sex Assigned at Not on file Legal Sex Female 1:32 PM CDT Gender Identity Not on file Sexual Orientation Not on file documented as of this encounter Miscellaneous Notes * Cerner Conversion Note - Akash ProviderMD - 10/12/2019 9:00 AM NURSERY HELPER Pain Assessment Entered On: 10/12/2019 11:21 EST [...] Description 09/07/2025 10:45 AM EDT Office Visit [address] [address] Adrienne Dunn MD [address] [place] [address] [address] [place] [phone] documented as of this encounter Visit Diagnoses Not on filedocumented in this encounter Care Teams Rental Coordinator Relationship Specialty Start Date End Date Niranjan Mccarty MD [address] [place] [address] PCP - General Adolescent Medicine 10/15/23 documented as of this encounter
--- OUTSIDE RECORDS SUMMARY | 2025-06-28 11:40 | XMS_ITS | Encounter Summary ---
Author Organization [employer] ([place], [place], [place], [place]) Address [address] [place] [address] Care Team Providers Care Nutritionist Public Health Name Role Phone Niranjan Mccarty MD Primary Care Provider [phone] Encounter Details Date Type Department Care Team (Late st Contact Info) Description 10/11/2019 Transcribed Document [facility] [place] [address] [place] [address] ProviderAkash MD [address] [place] [address] Social History Tobacco Use Types [...] - Historical ProviderMD - 10/11/2019 5:00 AM LARD MAKER Chart Check - Review Order Profile Entered On: 10/11/2019 4:17 EST Performed On: 10/11/2019 5:00 EST by MEKA MANSFIELD RN Chart Check All Active Orders Reviewed : Yes MEKA MANSFIELD RN - 10/11/2019 4:17 EST documented in this encounter Plan of Treatment Upcoming Encounters Date Type Department Care Team (Late st Contact Info) Description 09/07/2025 10:45 AM EDT Office Visit [address] [address] Adrienne Dunn MD [address] [facility] [address] [place], [place] [id number] documented as of this encounter Visit Diagnoses Not on filedocumented in this encounter Care Teams Nutritionist Public Health Relationship Specialty Start Date End Date Niranjan Mccarty MD [address] [place] [address] PCP - General Adolescent Medicine 10/15/23 documented as of this encounter
--- OUTSIDE RECORDS SUMMARY | 2025-06-28 11:40 | XMS_ITS | Encounter Summary ---
Author Organization [employer] ([place], [place], [place], [place]) Address [address] [place] [address] Care Team Providers Care Railroad Surveyor Name Role Phone Niranjan Mccarty MD Primary Care Provider [phone] Encounter Details Date Type Department Care Team (Late st Contact Info) Description 10/12/2019 Transcribed Document [facility] [place] [address] ProviderAkash MD [address] [place], [place] [address] Social History Tobacco Use Types Packs/Day Years Used Date Smoking Tobacco: Never Assessed Comments Unknown Sex and Gender Information Value Date Recorded Sex Assigned at Not on file Legal Sex Female 1:32 PM CDT Gender Identity Not on file Sexual Orientation Not on file documented as of this encounter Miscellaneous Notes * Cerner Conversion Note - Akash Vega MD - 10/12/2019 9:40 AM SEED PACKER Patient Education Materials Follows: Nonspecific Chest Pain [...] you start to feel better. ??? Take jgit-wjf-byebhsa and prescription medicines only as told by [...] 04/21/2009 Document Revised: 07/28/2017 Document Reviewed: 07/28/2017 [employer] Interactive Patient Education ? 2019 [employer] documented in this encounter Plan of Treatment Upcoming Encounters Date Type Department Care Team (Late st Contact Info) Description 09/07/2025 10:45 AM EDT Office Visit [facility] Electrophysiology [address] [place], [place] [phone] Adrienne Dunn MD [address] [place] [address] [address] [place] [address] documented as of this encounter Visit Diagnoses Not on filedocumented in this encounter Care Teams Railroad Surveyor Relationship Specialty Start Date End Date Niranjan Mccarty MD [address] [place] [address] PCP - General Adolescent Medicine 10/15/23 documented as of this encounter
--- OUTSIDE RECORDS SUMMARY | 2025-06-28 11:40 | XMS_ITS | Encounter Summary ---
Author Organization [employer] ([place], [place], [place], [place]) Address [address] [place] [address] Care Team Providers Care Director Case Name Role Phone Niranjan Mccarty MD Primary Care Provider [phone] Encounter Details Date Type Department Care Team (Late st Contact Info) Description 10/12/2019 Transcribed Document [facility] [place] [facility] [place] [address] ProviderAkash MD [address] [place], [place] [phone] Social History Tobacco Use Types Packs/Day Years Used Date Smoking Tobacco: Never Assessed Comments Unknown Sex and Gender Information Value Date Recorded Sex Assigned at Not on file Legal Sex Female 1:32 PM CDT Gender Identity Not on file Sexual Orientation Not on file documented as of this encounter Miscellaneous Notes * Cerner Conversion Note - Akash Vega MD - 10/12/2019 9:35 AM IS SUPPORT ANALYST Patient: TRAN PEGUERO Age: 83 years Sex: [...] home oxygen, gastric ulcer who presented to [facility] ER today with complaints of chest pain. [...] any, fever or chills. Lab workup at [facility] showed WBC count 5.6, hemoglobin 11.7, platelets [...] significant chest pain. Patient requested transfer to [facility] to be evaluated by her community arts worker here. She was admitted to telemetry. Troponin [...] Description 09/07/2025 10:45 AM EDT Office Visit [facility] Electrophysiology [address] [place] [phone] [place] [address] [place] [address] [address] [place] [address] documented as of this encounter Visit Diagnoses Not on filedocumented in this encounter Care Teams Director Case Relationship Specialty Start Date End Date Niranjan Mccarty MD [address] [place] [address] PCP - General Adolescent Medicine 10/15/23 documented as of this encounter
--- OUTSIDE RECORDS SUMMARY | 2025-06-28 11:40 | XMS_ITS | Encounter Summary ---
Author Organization [employer] ([place], [place], [place], [place]) Address [address] [place] [address] Care Team Providers Care Seating Captain Name Role Phone Niranjan Mccarty MD Primary Care Provider [phone] Encounter Details Date Type Department Care Team (Late st Contact Info) Description 10/12/2019 Transcribed Document [facility] [place] Family Medicine [facility] [place] [address] ProviderAkash MD [address] [place] [phone] Social History Tobacco Use Types Packs/Day Years Used Date Smoking Tobacco: Never Assessed Comments Unknown Sex and Gender Information Value Date Recorded Sex Assigned at Not on file Legal Sex Female 1:32 PM CDT Gender Identity Not on file Sexual Orientation Not on file documented as of this encounter Miscellaneous Notes * Cerner Conversion Note - Akash Vega MD - 10/12/2019 8:49 AM MANAGER MARITIME Patient: TRAN PEGUERO Age: 83 years Sex: [...] Description 09/07/2025 10:45 AM EDT Office Visit [facility] Electrophysiology [address] [place] [address] Adrienne Dunn MD [address] [facility] [address] [place] [address] documented as of this encounter Visit Diagnoses Not on filedocumented in this encounter Care Teams Seating Captain Relationship Specialty Start Date End Date Niranjan Mccarty MD [address] [place] [address] PCP - General Adolescent Medicine 10/15/23 documented as of this encounter
--- OUTSIDE RECORDS SUMMARY | 2025-06-28 11:40 | XMS_ITS | Encounter Summary ---
Author Organization [employer] ([place], [place], [place], [place]) Address [address] [place] [address] Care Team Providers Care Preschool Teacher'S Assistant Name Role Phone Niranjan Mccarty MD Primary Care Provider [phone] Encounter Details Date Type Department Care Team (Late st Contact Info) Description 10/12/2019 Transcribed Document [facility] [place] Family Medicine [facility] [place] [address] ProviderAkash MD [address] [place] [phone] Social History Tobacco Use Types Packs/Day Years Used Date Smoking Tobacco: Never Assessed Comments Unknown Sex and Gender Information Value Date Recorded Sex Assigned at Not on file Legal Sex Female 1:32 PM CDT Gender Identity Not on file Sexual Orientation Not on file documented as of this encounter Miscellaneous Notes * Cerner Conversion Note - Akash Vega MD - 10/12/2019 3:47 PM INTERNATIONAL ACCOUNTING MANAGER Final Discharge Planning Entered On: 10/12/2019 15:47 [...] : Yes Discharge To Care Management : Home/Residential/Skilled Nursing or Self Care -01 CATHERINE LOZANO RN-Care Management - 10/12/2019 15:47 EST Final Narrative Note Final Narrative Note : Pt to be discharged today w/o needs for CM to address, and family transporting CATHERINE LOZANO RN-Care Management - 10/12/2019 15:47 EST Electronically signed by [facility], [facility] Conversion Chemical Unit Operator Cerner at 03/07/2023 1:55 PM CDT documented in this encounter Plan of Treatment Upcoming Encounters Date Type Department Care Team (Late st Contact Info) Description 09/07/2025 10:45 AM EDT Office Visit [facility] Electrophysiology [address] [place] [address] Adrienne Dunn MD [address] [place] [address] [address] [place] [phone] documented as of this encounter Visit Diagnoses Not on filedocumented in this encounter Care Teams Preschool Teacher'S Assistant Relationship Specialty Start Date End Date Niranjan Mccarty MD [address] [place] [address] PCP - General Adolescent Medicine 10/15/23 documented as of this encounter
--- OUTSIDE RECORDS SUMMARY | 2025-06-28 11:40 | XMS_ITS | Encounter Summary ---
Author Organization [employer] ([place], [place], [place], [place]) Address [address] [place] [address] Care Team Providers Care Stonecutter Assistant Name Role Phone Niranjan Mccarty MD Primary Care Provider [phone] Encounter Details Date Type Department Care Team (Late st Contact Info) Description 10/09/2019 Transcribed Document [facility] [place] [facility] [place] [address] ProviderAkash MD [address] [place] [phone] Social History Tobacco Use Types Packs/Day Years Used Date Smoking Tobacco: Never Assessed Comments Unknown Sex and Gender Information Value Date Recorded Sex Assigned at Not on file Legal Sex Female 1:32 PM CDT Gender Identity Not on file Sexual Orientation Not on file documented as of this encounter Miscellaneous Notes * Cerner Conversion Note - Akash Vega MD - 10/09/2019 9:20 PM DROP WIRE STRINGER Consult Phone Call Documentation Entered On: 10/10/2019 10:25 EST Performed On: 10/09/2019 21:20 EST by Delma Cox, [facility] Coord Phone Call for Consults Consult Phone Call/Page Attempt : First call Consult Reason : chest pain, AFIB Physician Requesting Consult : CINTHIA ENNIS MD Physician Requested for Consult : VIRY ESTRADA MD-CAR Provider Service Notified Name : Cardiology Physician Covering for Consult : zafar Date and Time Call Returned : 10/10/2019 10:25 EST Consult, Additional Information : spoke to [facility] Delma Cox, [facility] Coord - 10/10/2019 10:13 EST Electronically signed by Cecy, [facility] Conversion Sociology Professor Cerner at 03/07/2023 1:41 PM CDT documented in this encounter Plan of Treatment Upcoming Encounters Date Type Department Care Team (Late st Contact Info) Description 09/07/2025 10:45 AM EDT Office Visit [facility] Electrophysiology [address] [place] [address] [place] [address] [place] [address] [address] [place] [phone] documented as of this encounter Visit Diagnoses Not on filedocumented in this encounter Care Teams Stonecutter Assistant Relationship Specialty Start Date End Date Niranjan Mccarty MD [address] [place] [address] PCP - General Adolescent Medicine 10/15/23 documented as of this encounter
--- OUTSIDE RECORDS SUMMARY | 2025-06-28 11:40 | XMS_ITS | Encounter Summary ---
Author Organization [employer] ([place], [place], [place], [place]) Address [address] [place] [address] Care Team Providers Care Architectural Wood Model Maker Name Role Phone Niranjan Mccarty MD Primary Care Provider [phone] Encounter Details Date Type Department Care Team (Late st Contact Info) Description 10/09/2019 Transcribed Document [facility] [place] [facility] [place] [address] ProviderAkash MD [address] [place] [address] Social History Tobacco Use Types Packs/Day [...] Akash Vega MD - 10/09/2019 9:37 PM MACHINE JOINT CUTTER Pain Assessment Entered On: 10/09/2019 23:44 EST Performed On: 10/09/2019 23:54 EST by MEKA MANSFIELD RN Intervention Information: traMADol Performed by MEKA MANSFIELD RN on 10/09/2019 22:54:00 EST traMADol,50mg Oral Pain Assessment Pain Assessment : Follow-up assessment Pain Improved by Intervention : Yes MEKA MANSFIELD RN - 10/09/2019 23:43 EST Electronically signed by [employer] [facility] Conversion Ground Source Heat Pump Technician Cerner at 03/07/2023 1:55 PM CDT documented in this encounter Plan of Treatment Upcoming Encounters Date Type Department Care Team (Late st Contact Info) Description 09/07/2025 10:45 AM EDT Office Visit [facility] Electrophysiology [address] [place] [address] Adrienne Dunn MD 14[address] [facility] [address] [place], [place] [phone] documented as of this encounter Visit Diagnoses Not on filedocumented in this encounter Care Teams Architectural Wood Model Maker Relationship Specialty Start Date End Date Niranjan Mccarty MD [address] [place] [address] PCP - General Adolescent Medicine 10/15/23 documented as of this encounter
--- OUTSIDE RECORDS SUMMARY | 2025-06-28 11:40 | XMS_ITS | Encounter Summary ---
Author Organization [employer] ([place], [place], [place], [place]) Address [address] [place] [address] Care Team Providers Care Tank Officer Name Role Phone Niranjan Mccarty MD Primary Care Provider [phone] Encounter Details Date Type Department Care Team (Late st Contact Info) Description 10/11/2019 Transcribed Document [facility] [place] [address] [place] [address] ProviderAkash MD [address] [place], [place] [phone] Social History Tobacco Use Types Packs/Day Years Used Date Smoking Tobacco: Never Assessed Comments Unknown Sex and Gender Information Value Date Recorded Sex Assigned at Not on file Legal Sex Female 1:32 PM CDT Gender Identity Not on file Sexual Orientation Not on file documented as of this encounter Miscellaneous Notes * Cerner Conversion Note - Akash Vega MD - 10/11/2019 9:00 AM NEWS INTERNSHIP Pain Assessment Entered On: 10/11/2019 16:45 EST [...] EDT Office Visit [facility] Electrophysiology [address] [place] [address] Adrienne Dunn MD [address] [place] [address] [address] [place] [address] documented as of this encounter Visit Diagnoses Not on filedocumented in this encounter Care Teams Tank Officer Relationship Specialty Start Date End Date Niranjan Mccarty MD [address] [place] [address] PCP - General Adolescent Medicine 10/15/23 documented as of this encounter
--- OUTSIDE RECORDS SUMMARY | 2025-06-28 11:40 | XMS_ITS | Encounter Summary ---
Author Organization [employer] ([place], [place], [place], [place]) Address [address] [place] [address] Care Team Providers Care Final Inspector Motorcyles Name Role Phone Niranjan Mccarty MD Primary Care Provider [phone] Encounter Details Date Type Department Care Team (Late st Contact Info) Description 10/13/2019 Transcribed Document [facility] [place] [facility] [place] [address] ProviderAkash MD [address] [place] [phone] Social History Tobacco Use Types Packs/Day Years Used Date Smoking Tobacco: Never Assessed Comments Unknown Sex and Gender Information Value Date Recorded Sex Assigned at Not on file Legal Sex Female 1:32 PM CDT Gender Identity Not on file Sexual Orientation Not on file documented as of this encounter Miscellaneous Notes * Cerner Conversion Note - Historical ProviderMD - 10/13/2019 8:26 AM LOGISTICS ASSISTANT Discharge Summary, PT Entered On: 10/13/2019 8:27 [...] WILLIE GOLDEN, PT - 10/13/2019 8:26 EST Alf Goals Mobility/Bed Mobility LTG PT Grid Goal [...] - 10/13/2019 8:26 EST Electronically signed by [facility], [facility] Conversion Back Filler Operator Cerner at 03/07/2023 1:24 PM CDT documented in this encounter Plan of Treatment Upcoming Encounters Date Type Department Care Team (Late st Contact Info) Description 09/07/2025 10:45 AM EDT Office Visit [facility] Electrophysiology [address] [place], [place] [phone] Adrienne Dunn MD [address] [place] [address] [address] [place] [address] documented as of this encounter Visit Diagnoses Not on filedocumented in this encounter Care Teams Final Inspector Motorcyles Relationship Specialty Start Date End Date Niranjan Mccarty MD [address] [place] [address] PCP - General Adolescent Medicine 10/15/23 documented as of this encounter
--- OUTSIDE RECORDS SUMMARY | 2025-06-28 11:40 | XMS_ITS | Encounter Summary ---
Author Organization [employer] ([place], [place], [place], [place]) Address [address] [place] [address] Care Team Providers Care Retail Helper Name Role Phone Niranjan Mccarty MD Primary Care Provider [phone] Encounter Details Date Type Department Care Team (Late st Contact Info) Description 10/09/2019 Transcribed Document [facility] [place] Family Medicine [address] [place] [address] ProviderAkash MD [address] [place] [address] Social History Tobacco Use Types [...] Akash Vega MD - 10/09/2019 9:00 PM HYDRO MECHANIC Admission History, Adult Entered On: 10/09/2019 21:02 EST Performed On: 10/09/2019 21:00 EST by MEKA MANSFIELD RN Height and Weight, Clinical Dosing Height Source : Stated Height Entry Format : [place] Height, Feet : 5 ft(Converted to: 152 cm, 60 Inch) Height, Inches : 5 Inch(Converted to: 0 ft 5 Inch, 12.70 cm) Clinical Height : 165.1 cm Weight Source : Bed scale Weight Entry Format : [place] Clinical Dosing Weight : 65.51 kg Weight, Pounds : 144 lb Weight, Ounces : 2 oz Body Surface Area (BSA) : 1.72 m2 Body Mass Index : 24 kg/m2 [place] Body Weight : 57 kg MEKA MANSFIELD RN - 10/09/2019 21:00 EST Infectious Disease History Infectious Disease History : Chicken pox/Shingles, Influenza, Measles, Scarlet fever Active Surveillance Screen Assessment : Pt transferred from SNF, LTC, CARE HOME, or rehab hospital Active Surveillance Screen Positive [...] Description 09/07/2025 10:45 AM EDT Office Visit [facility] Electrophysiology [address] [place] [phone] Adrienne Dunn MD 1401 [facility] [address] [place] [address] documented as of this encounter Visit Diagnoses Not on filedocumented in this encounter Care Teams Retail Helper Relationship Specialty Start Date End Date Niranjan Mccarty MD [address] [place] [address] PCP - General Adolescent Medicine 10/15/23 documented as of this encounter
--- OUTSIDE RECORDS SUMMARY | 2025-06-28 11:40 | XMS_ITS | Encounter Summary ---
Author Organization [employer] ([place], [place], [place], [place]) Address [address] [place] [address] Care Team Providers Care Die Attacher Name Role Phone Niranjan Mccarty MD Primary Care Provider [phone] Encounter Details Date Type Department Care Team (Late st Contact Info) Description 10/12/2019 Transcribed Document [facility] [place] Counts include 234 beds at the [facility] [address] ProviderAkash MD [address] [place] [address] Social History Tobacco Use Types Packs/Day [...] Akash Vega MD - 10/12/2019 6:20 PM TECHNICAL SUPPORT INTERN Nursing Discharge Summary Entered On: 10/12/2019 18:22 [...] - 10/12/2019 18:20 EST Electronically signed by [facility], [facility] Conversion Suction Drum Drier Operator Cerner at 03/07/2023 1:46 PM CDT documented in this encounter Plan of Treatment Upcoming Encounters Date Type Department Care Team (Late st Contact Info) Description 09/07/2025 10:45 AM EDT Office Visit [facility] Electrophysiology [address] [place] [address] Adrienne Dunn MD [address] [place] [address] [address] [place] [phone] documented as of this encounter Visit Diagnoses Not on filedocumented in this encounter Care Teams Die Attacher Relationship Specialty Start Date End Date Niranjan Mccarty MD [address] [place] [address] PCP - General Adolescent Medicine 10/15/23 documented as of this encounter
--- OUTSIDE RECORDS SUMMARY | 2025-06-28 11:40 | XMS_ITS | Encounter Summary ---
Author Organization [employer] ([place], [place], [place], [place]) Address [address] [place] [address] Care Team Providers Care Agricultural Production Engineer Name Role Phone Niranjan Mccarty MD Primary Care Provider [phone] Encounter Details Date Type Department Care Team (Late st Contact Info) Description 10/09/2019 Transcribed Document [facility] [place] Family [place] [address] ProviderAkash MD [address] [place] [address] Social History Tobacco Use Types Packs/Day Years Used Date Smoking Tobacco: Never Assessed Comments Unknown Sex and Gender Information Value Date Recorded Sex Assigned at Not on file Legal Sex Female 1:32 PM CDT Gender Identity Not on file Sexual Orientation Not on file documented as of this encounter Miscellaneous Notes * Cerner Conversion Note - Historical ProviderMD - 10/09/2019 9:18 PM SOUND RECORDING TECHNICIAN Education-(VTE) / (DVT) Entered On: 10/09/2019 23:43 EST Performed On: 10/09/2019 21:18 EST by MEKA MANSFIELD RN Teaching/Learning Assessment Barriers To Learning : None evident Individuals Taught : Patient Readiness to Learn : Cooperative Learning Style Preferences Patient : Verbal explanation Learning Style Preferences Family : Verbal explanation MEKA MANSFIELD RN - 10/09/2019 23:43 EST Electronically signed by [facility] Conversion Hydroelectric Machinery Mechanic Helper Cerner at 03/07/2023 1:26 PM CDT documented in this encounter Plan of Treatment Upcoming Encounters Date Type Department Care Team (Late st Contact Info) Description 09/07/2025 10:45 AM EDT Office Visit [facility] Electrophysiology [address] [place] [phone] Adrienne Dunn MD 1401 [facility] [address] [place] [address] documented as of this encounter Visit Diagnoses Not on filedocumented in this encounter Care Teams Agricultural Production Engineer Relationship Specialty Start Date End Date Niranjan Mccarty MD [address] [place] [address] PCP - General Adolescent Medicine 10/15/23 documented as of this encounter
--- OUTSIDE RECORDS SUMMARY | 2025-06-28 11:40 | XMS_ITS | Encounter Summary ---
Author Organization [employer] ([place], [place], [place], [place]) Address [address] [place] [address] Care Team Providers Care Physician [facility] Name Role Phone Niranjan Mccarty MD Primary Care Provider [phone] Encounter Details Date Type Department Care Team (Late st Contact Info) Description 10/11/2019 Transcribed Document [facility] Cardiology [address] [place] [address] Constantine Galvan MD [address] [place] [address] [address] [place] [id number] Social History Tobacco Use Types Packs/Day Years [...] 1. Normal study. 2. Ejection fraction 60%. /[id number] Constantine Galvan MD NMF/AQ / POLINA / MODL /[id number] documented in this encounter Plan of Treatment Upcoming Encounters Date Type Department Care Team (Late st Contact Info) Description 09/07/2025 10:45 AM EDT Office Visit [facility] Electrophysiology [address] [place], [place] [phone] Adrienne Dunn MD [address] [place] [address] [address] [place] [phone] documented as of this encounter Visit Diagnoses Not on filedocumented in this encounter Care Teams Physician [facility] Relationship Specialty Start Date End Date Niranjan Mccarty MD [address] [place] [address] PCP - General Adolescent Medicine 10/15/23 documented as of this encounter
--- OUTSIDE RECORDS SUMMARY | 2025-06-28 11:41 | XMS_ITS | Encounter Summary ---
Author Organization [employer] ([place], [place], [place], [place]) Address [address] [place] [address] Care Team Providers Care Kiln Stacker Name Role Phone Niranjan Mccarty MD Primary Care Provider [phone] Encounter Details Date Type Department Care Team (Late st Contact Info) Description 06/13/2021 Transcribed Document [facility] [place] [facility] [place] [address] ProviderAkash MD [address] [place], [place] [phone] Social History Tobacco Use Types Packs/Day Years [...] On: 06/13/2021 13:14 EDT by SHERRILL JUÁREZ, RN-Superintendent General Final Discharge Planning Discharge Arrangements : Patient [...] Home/Residential/Fci or Self Care -01 SHERRILL JUÁREZ, RN-Superintendent General - 06/13/2021 13:14 EDT documented in this encounter Plan of Treatment Upcoming Encounters Date Type Department Care Team (Late st Contact Info) Description 09/07/2025 10:45 AM EDT Office Visit [facility] [address] [place], [place] [phone] [place] [address] [place] [address] [address] [place] [address] documented as of this encounter Visit Diagnoses Not on filedocumented in this encounter Care Teams Kiln Stacker Relationship Specialty Start Date End Date Niranjan Mccarty MD [address] [place] [address] PCP - General Adolescent Medicine 10/15/23 documented as of this encounter
--- OUTSIDE RECORDS SUMMARY | 2025-06-28 11:41 | XMS_ITS | Encounter Summary ---
Author Organization [employer] ([place], [place], [place], [place]) Address [address] [place] [address] Care Team Providers Care Email Marketing Manager Name Role Phone Niranjan Mccarty MD Primary Care Provider [phone] Encounter Details Date Type Department Care Team (Late st Contact Info) Description 08/23/2021 Transcribed Document [facility] [place] Family Medicine [facility] [place] [address] ProviderAkash MD [address] [place] [address] Social History Tobacco Use Types [...] 6:35 PM CDT Electronically signed by Cecy [facility] Conversion District Plant Supervisor Cerner at 03/07/2023 1:37 PM CDT documented in this encounter Plan of Treatment Upcoming Encounters Date Type Department Care Team (Late st Contact Info) Description 09/07/2025 10:45 AM EDT Office Visit [facility] Electrophysiology [address] [place] [address] Adrienne Dunn MD [address] [place] [address] [address] [place] [address] documented as of this encounter Visit Diagnoses Not on filedocumented in this encounter Care Teams Email Marketing Manager Relationship Specialty Start Date End Date Niranjan Mccarty MD [address] [place] [address] PCP - General Adolescent Medicine 10/15/23 documented as of this encounter
--- OUTSIDE RECORDS SUMMARY | 2025-06-28 11:41 | XMS_ITS | Encounter Summary ---
Author Organization [employer] ([place], [place], [place], [place]) Address [address] [place] [address] Care Team Providers Care Instructor Correspondence School Name Role Phone Niranjan Mccarty MD Primary Care Provider [phone] Encounter Details Date Type Department Care Team (Late st Contact Info) Description 10/11/2019 Transcribed Document [facility] Family Medicine [facility] [place] [address] ProviderAkash MD [address] [place] [address] Social History Tobacco Use Types Packs/Day [...] Akash Vega MD - 10/11/2019 8:57 AM LEARNING AND DEVELOPMENT COORDINATOR Event Note Entered On: 10/11/2019 8:57 EST Performed On: 10/11/2019 8:57 EST by Carlos Burroughs RN Event Note Event Date/Time : 10/11/2019 8:57 EST Description of Event : Pt. wants to wait until post stress test to take protonix and tramadol. Pt. agreed to take sotalol with a sip of water prior to procedure. Carlos Burroughs RN - 10/11/2019 8:57 EST Electronically signed by Sherri Sam Conversion Electronic Page Makeup System Operator Cerner at 03/07/2023 1:26 PM CDT documented in this encounter Plan of Treatment Upcoming Encounters Date Type Department Care Team (Late st Contact Info) Description 09/07/2025 10:45 AM EDT Office Visit [facility] Electrophysiology [address] [place] [address] Adrienne Dunn MD [address] [facility] [address] [place] [address] documented as of this encounter Visit Diagnoses Not on filedocumented in this encounter Care Teams Instructor Correspondence School Relationship Specialty Start Date End Date Niranjan Mccarty MD [address] [place] [address] PCP - General Adolescent Medicine 10/15/23 documented as of this encounter
--- OUTSIDE RECORDS SUMMARY | 2025-06-28 11:41 | XMS_ITS | Encounter Summary ---
Author Organization [employer] ([place], [place], [place], [place]) Address [address] [place] [address] Care Team Providers Care Breaking Machine Operator Name Role Phone Niranjan Mccarty MD Primary Care Provider [phone] Encounter Details Date Type Department Care Team (Late st Contact Info) Description 06/13/2021 Transcribed Document [facility] [place] [facility] [place] [address] ProviderAkash MD [address] [place] [address] Social History Tobacco Use Types [...] Vega MD - 06/13/2021 3:32 PM CDT [facility] [place] [id number] WILD TRANDAREN MENDOZA :1935 Visit Time:06/12/2021 Your Visit Summary Your [...] Dr. Dunn Appointment has been made Where: [facility] [address] [place] [address]- Business (1) Medications What How Much When [...] these instructions at home: Medicines ??? Take bbtv-ecb-tcmyxqo and prescription medicines only as told by [...] and water are not available, use hand roofing superintendent. ? Change your dressing as told by [...] your chest for several days. ??? Take zmvc-rpu-niqobvf and prescription medicines only as told by [...] Reviewed: 10/04/2019 Elsevier Patient Education ?? 2020 ElseSoundtracker Inc. Heart-Healthy Eating Plan Heart-healthy meal planning [...] Fats and oils Meat fat, or shortening. Graham butter, hydrogenated oils, palm oil, coconut oil, [...] provider. Document Revised: 01/07/2019 Document Reviewed: 12/11/2018 Offerboard Patient Education ?? 2020 Youca.st. Emergency Awareness and Preventative Care STROKE is [...] Assistance with quitting is available by contacting 1-218-ENOY-NOW. This is a free resource providing counseling, [...] range between ( 0.0 and 7.0 ) [place] #: 0.48 K/uL -- Normal range between ( 0.16 and 1.00 ) Eos #: 0.16 x10(3)/uL -- Normal range between ( 0.00 and 0.80 ) [place] %: 8.0 % -- Normal range between [...] was given the opportunity to ask questions. Patient/Green Chain Marker Name: Patient/Green Chain Marker Signature: Relationship to Patient: Clinician/Hospital Green Chain Marker Signature: Date: Electronically signed by Interface, [facility] Conversion Yard Demurrage Clerk Cerner at 03/07/2023 1:44 PM CDT documented in this encounter Plan of Treatment Upcoming Encounters Date Type Department Care Team (Late st Contact Info) Description 09/07/2025 10:45 AM EDT Office Visit [address] [address] Adrienne Dunn MD [address] [place] [address] [address] [place] [address] documented as of this encounter Visit Diagnoses Not on filedocumented in this encounter Care Teams Breaking Machine Operator Relationship Specialty Start Date End Date Niranjan Mccarty MD [address] [place] [address] PCP - General Adolescent Medicine 10/15/23 documented as of this encounter
--- OUTSIDE RECORDS SUMMARY | 2025-06-28 11:41 | XMS_ITS | Encounter Summary ---
Author Organization [employer] ([place], [place], [place], [place]) Address [address] [place] [address] Care Team Providers Care Clinical Advisor Name Role Phone Niranjan Mccarty MD Primary Care Provider [phone] Encounter Details Date Type Department Care Team (Late st Contact Info) Description 08/23/2021 Transcribed Document [facility] [place] Family Medicine [facility] [place] [address] ProviderAkash MD [address] [place] [id number] Social History Tobacco Use Types Packs/Day Years [...] 08/23/2021 22:15 EDT Electronically signed by Cecy [facility] Conversion Route Sales Delivery Driver Cerner at 03/07/2023 1:36 PM CDT documented in this encounter Plan of Treatment Upcoming Encounters Date Type Department Care Team (Late st Contact Info) Description 09/07/2025 10:45 AM EDT Office Visit [facility] Electrophysiology [address] [place] [address] Adrienne Dunn MD [address] [place] [address] [address] [place] [address] documented as of this encounter Visit Diagnoses Not on filedocumented in this encounter Care Teams Clinical Advisor Relationship Specialty Start Date End Date Niranjan Mccarty MD [address] [place] [address] PCP - General Adolescent Medicine 10/15/23 documented as of this encounter
--- OUTSIDE RECORDS SUMMARY | 2025-06-28 11:41 | XMS_ITS | Encounter Summary ---
Author Organization [employer] ([place], [place], [place], [place]) Address [address] [place] [address] Care Team Providers Care Head Of Mathematics Name Role Phone Niranjan Mccarty MD Primary Care Provider [phone] Encounter Details Date Type Department Care Team (Late st Contact Info) Description 10/10/2019 Transcribed Document [facility] [place] [facility] [place] [address] ProviderAkash MD [address] [place] [address] Social History Tobacco Use Types Packs/Day [...] Akash Vega MD - 10/10/2019 9:00 PM MANAGEMENT DEVELOPMENT SPECIALIST Pain Assessment Entered On: 10/10/2019 22:55 EST [...] Description 09/07/2025 10:45 AM EDT Office Visit [facility] Electrophysiology [address] [place] [address] Adrienne Dunn MD [address] [facility] [address] [place], [place] [id number] documented as of this encounter Visit Diagnoses Not on filedocumented in this encounter Care Teams Head Of Mathematics Relationship Specialty Start Date End Date Niranjan Mccarty MD [address] [place] [address] PCP - General Adolescent Medicine 10/15/23 documented as of this encounter
--- OUTSIDE RECORDS SUMMARY | 2025-06-28 11:41 | XMS_ITS | Encounter Summary ---
Author Organization [employer] ([place], [place], [place], [place]) Address [address] [place] [address] Care Team Providers Care Channel Opener Outsoles Name Role Phone Niranjan Mccarty MD Primary Care Provider [phone] Encounter Details Date Type Department Care Team (Late st Contact Info) Description 08/24/2021 Transcribed Document [facility] [place] Family Medicine [address] [place] [address] ProviderAkash MD [address] [place] [address] Social History Tobacco Use Types [...] required Electronically signed by Sherri Sam Conversion Diesel Powerplant Mechanic Helper Cerner at 03/07/2023 1:23 PM CDT documented in this encounter Plan of Treatment Upcoming Encounters Date Type Department Care Team (Late st Contact Info) Description 09/07/2025 10:45 AM EDT Office Visit [address] [address] Adrienne Dunn MD [address] [facility] [address] [place] [address] documented as of this encounter Visit Diagnoses Not on filedocumented in this encounter Care Teams Channel Opener Outsoles Relationship Specialty Start Date End Date Niranjan Mccarty MD [address] [place] [address] PCP - General Adolescent Medicine 10/15/23 documented as of this encounter
--- OUTSIDE RECORDS SUMMARY | 2025-06-28 11:41 | XMS_ITS | Encounter Summary ---
Author Organization [employer] ([place], [place], [place], [place]) Address [address] [place] [address] Care Team Providers Care Cellulose Insulation Helper Name Role Phone Niranjan Mccarty MD Primary Care Provider [phone] Encounter Details Date Type Department Care Team (Late st Contact Info) Description 10/10/2019 Transcribed Document [facility] Family Medicine [facility] [place] [address] ProviderAkash MD [address] [place] [phone] Social History Tobacco Use Types Packs/Day Years Used Date Smoking Tobacco: Never Assessed Comments Unknown Sex and Gender Information Value Date Recorded Sex Assigned at Not on file Legal Sex Female 1:32 PM CDT Gender Identity Not on file Sexual Orientation Not on file documented as of this encounter Miscellaneous Notes * Cerner Conversion Note - Akash Vega MD - 10/10/2019 8:07 AM VACUUM CASTER Patient: TRAN PEGUERO Age: 83 years Sex: [...] Daily PT/INR ordered Nataly Diaz PharmD PGY-1 Coupon Manifest Clerk Pager: [phone] Electronically signed by Cecy [facility] Conversion Auto Mechanics Teacher Cerner at 03/07/2023 1:42 PM CDT documented in this encounter Plan of Treatment Upcoming Encounters Date Type Department Care Team (Late st Contact Info) Description 09/07/2025 10:45 AM EDT Office Visit [facility] Electrophysiology [address] [place] [address] [place] [address] [place] [address] [address] [place] [address] documented as of this encounter Visit Diagnoses Not on filedocumented in this encounter Care Teams Cellulose Insulation Helper Relationship Specialty Start Date End Date Niranjan Mccarty MD [address] [place] [address] PCP - General Adolescent Medicine 10/15/23 documented as of this encounter
--- OUTSIDE RECORDS SUMMARY | 2025-06-28 11:41 | XMS_ITS | Encounter Summary ---
Author Organization [employer] ([place], [place], [place], [place]) Address [address] [place] [address] Care Team Providers Care Hydrometeorologist Name Role Phone Niranjan Mccarty MD Primary Care Provider [phone] Encounter Details Date Type Department Care Team (Late st Contact Info) Description 10/10/2019 Transcribed Document [facility] Family Medicine [facility] [place] [address] ProviderAkash MD [address] [place] [id number] Social History Tobacco Use Types Packs/Day Years Used Date Smoking Tobacco: Never Assessed Comments Unknown Sex and Gender Information Value Date Recorded Sex Assigned at Not on file Legal Sex Female 1:32 PM CDT Gender Identity Not on file Sexual Orientation Not on file documented as of this encounter Miscellaneous Notes * Cerner Conversion Note - Akash Vega MD - 10/10/2019 8:35 AM SMALL PRODUCTS II ASSEMBLER Patient: TRAN PEGUERO Age: 83 Years Sex: [...] Lymph # 1.79 x10(3)/uL 10/09/2019 21:53 EST [place] % 10.3 % (High) 10/10/2019 02:57 EST [place] % 8.0 % 10/09/2019 21:53 EST [place] # 0.75 K/uL 10/10/2019 02:57 EST [place] # 0.59 K/uL 10/09/2019 21:53 EST Eos [...] 10/10/2019 02:57 EST Electronically signed by Interface, [facility] Conversion Railcar Mechanic Cerner at 03/07/2023 1:54 PM CDT documented in this encounter Plan of Treatment Upcoming Encounters Date Type Department Care Team (Late st Contact Info) Description 09/07/2025 10:45 AM EDT Office Visit [facility] Electrophysiology [address] [place] [address] Adrienne Dunn MD [address] [place] [address] [address] [place] [address] documented as of this encounter Visit Diagnoses Not on filedocumented in this encounter Care Teams Hydrometeorologist Relationship Specialty Start Date End Date Niranjan Mccarty MD [address] [place] [address] PCP - General Adolescent Medicine 10/15/23 documented as of this encounter
--- OUTSIDE RECORDS SUMMARY | 2025-06-28 11:41 | XMS_ITS | Encounter Summary ---
Author Organization [employer] ([place], [place], [place], [place]) Address [address] [place] [address] Care Team Providers Care Education Program Coordinator Name Role Phone Niranjan Mccarty MD Primary Care Provider [phone] Encounter Details Date Type Department Care Team (Late st Contact Info) Description 06/13/2021 Transcribed Document [facility] [place] [facility] [address] ProviderAkash MD [address] [place] [address] Social History Tobacco Use Types [...] Vega MD - 06/13/2021 3:12 PM CDT [facility] [place] [id number] WILD TALDAREN MENDOZA :1935 Visit Time:06/12/2021 Your Visit Summary [...] Dr. Dunn Appointment has been made Where: [facility] [address] [place] [address]- [employer] (1) Medications What How Much When Instructions [...] these instructions at home: Medicines ??? Take pfqd-atv-ghwwpke and prescription medicines only as told by [...] and water are not available, use hand hospital orderly. ? Change your dressing as told by [...] your chest for several days. ??? Take ohzf-zva-szvmqxw and prescription medicines only as told by [...] Reviewed: 10/04/2019 Elsevier Patient Education ?? 2020 C[employer]x.Co Inc. Heart-Healthy Eating Plan Heart-healthy meal planning [...] Fats and oils Meat fat, or shortening. [place] butter, hydrogenated oils, palm oil, coconut oil, [...] provider. Document Revised: 01/07/2019 Document Reviewed: 12/11/2018 ElseEvver Patient Education ?? 2020 [employer]. Emergency Awareness and Preventative Care STROKE is [...] Assistance with quitting is available by contacting 9-885-UBTS-NOW. This is a free resource providing counseling, [...] range between ( 0.0 and 7.0 ) [place] #: 0.48 K/uL -- Normal range between ( 0.16 and 1.00 ) Eos #: 0.16 x10(3)/uL -- Normal range between ( 0.00 and 0.80 ) [place] %: 8.0 % -- Normal range between [...] was given the opportunity to ask questions. Patient/Dyed Raw Stock Blower Feeder Name: Patient/Dyed Raw Stock Blower Feeder Signature: Relationship to Patient: Clinician/Hospital Dyed Raw Stock Blower Feeder Signature: Date: documented in this encounter Plan of Treatment Upcoming Encounters Date Type Department Care Team (Late st Contact Info) Description 09/07/2025 10:45 AM EDT Office Visit [facility] Electrophysiology [address] [place], [place] [phone] Ewa Dunn MD [address] [place] [address] [address] [place] [phone] documented as of this encounter Visit Diagnoses Not on filedocumented in this encounter Care Teams Education Program Coordinator Relationship Specialty Start Date End Date Niranjan Mccarty MD [address] [place] [address] PCP - General Adolescent Medicine 10/15/23 documented as of this encounter
--- OUTSIDE RECORDS SUMMARY | 2025-06-28 11:41 | XMS_ITS | Encounter Summary ---
Author Organization [employer] ([place], [place], [place], [place]) Address [address] [place] [address] Care Team Providers Care Lithographer Apprentice Name Role Phone Niranjan Mccarty MD Primary Care Provider [phone] Encounter Details Date Type Department Care Team (Late st Contact Info) Description 06/13/2021 Transcribed Document [facility] [place] [facility] [place] [address] ProviderAkash MD [address] [place] [phone] Social History Tobacco Use Types Packs/Day Years [...] Description 09/07/2025 10:45 [place] [address] Adrienne Dunn MD [address] [facility] [address] [place] [phone] documented as of this encounter Visit Diagnoses Not on filedocumented in this encounter Care Teams Lithographer Apprentice Relationship Specialty Start Date End Date Niranjan Mccarty MD [address] [place] [address] PCP - General Adolescent Medicine 10/15/23 documented as of this encounter
--- OUTSIDE RECORDS SUMMARY | 2025-06-28 11:41 | XMS_ITS | Encounter Summary ---
Author Organization [employer] ([place], [place], [place], [place]) Address [address] [place] [address] Care Team Providers Care Fruit Thinner Name Role Phone Niranjan Mccarty MD Primary Care Provider [phone] Encounter Details Date Type Department Care Team (Late st Contact Info) Description 10/11/2019 Transcribed Document [facility] [place] Family Medicine [facility] [place] [address] ProviderAkash MD [address] [place] [address] Social History Tobacco Use Types Packs/Day Years Used Date Smoking Tobacco: Never Assessed Comments Unknown Sex and Gender Information Value Date Recorded Sex Assigned at Not on file Legal Sex Female 1:32 PM CDT Gender Identity Not on file Sexual Orientation Not on file documented as of this encounter Miscellaneous Notes * Cerner Conversion Note - Akash Vega MD - 10/11/2019 8:37 AM HALL TENDER Patient: TRAN PEGUERO Age: 83 Years Sex: [...] 10/11/2019 04:25 EST Electronically signed by Cecy [facility] Conversion Computer Typesetter Keyliner Cerner at 03/07/2023 1:25 PM CDT documented in this encounter Plan of Treatment Upcoming Encounters Date Type Department Care Team (Late st Contact Info) Description 09/07/2025 10:45 AM EDT Office Visit [facility] Electrophysiology [address] [place] [address] Adrienne Dunn MD [address] [place] [address] [address] [place] [address] documented as of this encounter Visit Diagnoses Not on filedocumented in this encounter Care Teams Fruit Thinner Relationship Specialty Start Date End Date Niranjan Mccarty MD [address] [place] [address] PCP - General Adolescent Medicine 10/15/23 documented as of this encounter
--- OUTSIDE RECORDS SUMMARY | 2025-06-28 11:41 | XMS_ITS | Encounter Summary ---
Author Organization [employer] ([place], [place], [place], [place]) Address [address] [place] [address] Care Team Providers Care Cyber Forensic Specialist Name Role Phone Niranjan Mccarty MD Primary Care Provider [phone] Encounter Details Date Type Department Care Team (Late st Contact Info) Description 08/23/2021 Transcribed Document [facility] [place] Family [place] [facility] [place] [address] ProviderAkash MD [address] [place] [address] Social History Tobacco Use Types [...] Vega MD - 08/23/2021 8:36 PM CDT [facility] [place] [id number] TAL PEGUERO :1935 Visit Time:08/23/2021 Your Visit [...] to 3 days Where: [address] [place] [address] [employer] (1) Allergies Advicor Radha Baycol Biaxin Claritin [...] A Day Duration: 10 Day(s) Pickup at [facility] methylPREDNISolone (Medrol Dosepak 4 mg oral tablet) 1 Packet(s) Oral Every Day Duration: 6 Day(s) as directed on package labeling Pickup at [facility] ALPRAZolam (Xanax 0.5 mg oral tablet) 1 [...] Oral Every Day except sundays Pharmacy Information [facility]: [address] [phone] The home medications listed are only as [...] range between ( 0.0 and 7.0 ) [place] #: 0.50 K/uL -- Normal range between ( 0.16 and 1.00 ) Eos #: 0.28 -- Normal range between ( 0.00 and 7.00 ) [place] %: 5.9 % -- Normal range between [...] ) Urine Bilirubin Dipstick: Negative Urine Specific [place]: 1.007 -- Normal range between ( 1.005 [...] these instructions at home: Medicines ??? Take tuij-vlh-blpkrhr and prescription medicines only as told by [...] and water are not available, use hand billet shearer. ??? During flu season, avoid enclosed spaces [...] Reviewed: 12/08/2017 Elsevier Patient Education ?? 2020 Uranium Energyvier Inc. Emergency Awareness and Preventative Care STROKE [...] Assistance with quitting is available by contacting 8-432-WJAU-NOW. This is a free resource providing counseling, support, and referral. Or you may contact your personal physician. [place] Suicide Prevention Lifeline: The National Suicide Prevention [...] was given the opportunity to ask questions. Patient/Sample Sawyer Name: Patient/Sample Sawyer Signature: Relationship to Patient: Clinician/Hospital Sample Sawyer Signature: Please Provide a Telephone Number Where You Can Be Reached: Is it Permissible To Leave a Message? Date: documented in this encounter Plan of Treatment Upcoming Encounters Date Type Department Care Team (Late st Contact Info) Description 09/07/2025 10:45 AM EDT Office Visit [facility] Electrophysiology [address] [place], [place] [address] [place] [address] [place] [address] [address] [place] [phone] documented as of this encounter Visit Diagnoses Not on filedocumented in this encounter Care Teams Cyber Forensic Specialist Relationship Specialty Start Date End Date Niranjan Mccarty MD [address] [place] [address] PCP - General Adolescent Medicine 10/15/23 documented as of this encounter
--- OUTSIDE RECORDS SUMMARY | 2025-06-28 11:41 | XMS_ITS | Encounter Summary ---
Author Organization [employer] ([place], [place], [place], [place]) Address [address] [place] [address] Care Team Providers Care Mold Maintenance Technician Name Role Phone Niranjan Mccarty MD Primary Care Provider [phone] Encounter Details Date Type Department Care Team (Late st Contact Info) Description 08/23/2021 Transcribed Document [facility] [place] [address] [place] [address] ProviderAkash MD [address] [place], [place] [phone] Social History Tobacco Use Types Packs/Day Years [...] Communication Barrier : None Primary Language : Croatian Any Spiritual/Cultural Needs or Requests : No [...] Description 09/07/2025 10:45 AM EDT Office Visit [facility] Electrophysiology [address] [place] [address] Adrienne Dunn MD [address] [place] [address] [address] [place] [address] documented as of this encounter Visit Diagnoses Not on filedocumented in this encounter Care Teams Mold Maintenance Technician Relationship Specialty Start Date End Date Niranjan Mccarty MD [address] [place] [address] PCP - General Adolescent Medicine 10/15/23 documented as of this encounter
--- OUTSIDE RECORDS SUMMARY | 2025-06-28 11:41 | XMS_ITS | Encounter Summary ---
Author Organization [employer] ([place], [place], [place], [place]) Address [address] [place] [address] Care Team Providers Care Welder Experimental Name Role Phone Niranjan Mccarty MD Primary Care Provider [phone] Encounter Details Date Type Department Care Team (Late Contact Info) Description 08/22/2023 Telephone [facility] Cardiology [facility] [address] [address] Patrick Travis DO [address] [phone] Social History Tobacco Use Types Packs/Day Years [...] Office Visit [facility] Electrophysiology [address] [place] [address] Adrienne Dunn MD [address] [facility] [address] [place] [address] documented as of this encounter Visit Diagnoses Not on filedocumented in this encounter Care Teams Welder Experimental Relationship Specialty Start Date End Date Niranjan Mccarty MD [address] [place] [address] PCP - General Adolescent Medicine 10/15/23 documented as of this encounter
--- OUTSIDE RECORDS SUMMARY | 2025-06-28 11:41 | XMS_ITS | Encounter Summary ---
Author Organization [employer] ([place], [place], [place], [place]) Address [address] [place] [address] Care Team Providers Care Safety Belt Installer Name Role Phone Niranjan Mccarty MD Primary Care Provider [phone] Encounter Details Date Type Department Care Team (Late st Contact Info) Description 10/10/[address] [facility] [place] Family Medicine [address] [place] [address] ProviderAkash MD [address] [place] [address] Social History Tobacco Use Types [...] - Historical ProviderMD - 10/10/2019 5:00 AM RESIDENCY PROGRAM COORDINATOR Chart Check - Review Order Profile Entered On: 10/10/2019 4:41 EST Performed On: 10/10/2019 5:00 EST by MEKA MANSFIELD RN Chart Check All Active Orders Reviewed : Yes MEKA MANSFIELD RN - 10/10/2019 4:41 EST documented in this encounter Plan of Treatment Upcoming Encounters Date Type Department Care Team (Late st Contact Info) Description 09/07/2025 10:45 AM EDT Office Visit [address] [address] Adrienne Dunn MD 14[address] [facility] [address] [place], [place] [id number] documented as of this encounter Visit Diagnoses Not on filedocumented in this encounter Care Teams Safety Belt Installer Relationship Specialty Start Date End Date Niranjan Mccarty MD [address] [place] [address] PCP - General Adolescent Medicine 10/15/23 documented as of this encounter
--- OUTSIDE RECORDS SUMMARY | 2025-06-28 11:41 | XMS_ITS | Encounter Summary ---
Author Organization [employer] ([place], [place], [place], [place]) Address [address] [place] [address] Care Team Providers Care Field Supervisor Name Role Phone Niranjan Mccarty MD Primary Care Provider [phone] Encounter Details Date Type Department Care Team (Late st Contact Info) Description 10/10/2019 Transcribed Document [facility] Family [place] [address] ProviderAkash MD [address] [place] [address] Social History Tobacco Use Types Packs/Day Years Used Date Smoking Tobacco: Never Assessed Comments Unknown Sex and Gender Information Value Date Recorded Sex Assigned at Not on file Legal Sex Female 1:32 PM CDT Gender Identity Not on file Sexual Orientation Not on file documented as of this encounter Miscellaneous Notes * Cerner Conversion Note - Akash ProviderMD - 10/10/2019 2:00 AM TIRE AND LUBE TECHNICIAN Inspector And Tester Details Entered On: 10/10/2019 1:12 EST Performed [...] 10/10/2019 1:12 EST Electronically signed by Cecy [facility] Conversion Building Supplies Salesperson Retail Cerner at 03/07/2023 1:26 PM CDT documented in this encounter Plan of Treatment Upcoming Encounters Date Type Department Care Team (Late st Contact Info) Description 09/07/2025 10:45 AM EDT Office Visit [facility] Electrophysiology [address] [place] [phone] Adrienne Dunn MD 1401 [facility] [address] [place] [address] documented as of this encounter Visit Diagnoses Not on filedocumented in this encounter Care Teams Field Supervisor Relationship Specialty Start Date End Date Niranjan Mccarty MD [address] [place] [address] PCP - General Adolescent Medicine 10/15/23 documented as of this encounter
--- OUTSIDE RECORDS SUMMARY | 2025-06-28 11:41 | XMS_ITS | Referral Summary ---
Author Organization [employer] ([place], [place], [place], [place]) Address [address] [place] [address] Care Team Providers Care Sugar House Supervisor Name Role Phone Niranjan Mccarty MD Primary Care Provider [phone] Encounters Date Type Department Care Team Description 04/06/2025 5:00 AM EDT Clinical Support [facility] Electrophysiology [address] [place] [address] Adrienne Dunn MD Encounter for adjustment [...] Date Garrett rded Speak language other than [place] Zealander at home Not on file 11/28/2023 Want [...] Description 09/07/2025 10:45 AM EDT Office Visit [facility] Electrophysiology [address] [place] [phone] [place] [address] [place] [address] [address] [place] [address] Medical Devices Implanted Type Area Mold Closer Device Identifier Shelf Expiration Date Model / Serial / Lot Pacemakers-06/13 Implanted:06/13 (Quantity not on file) Pacemakers MED[employer]SEM[employer]IE VERA / [id number] / Description:DEPENDENT Insurance Marina [place] [id number] MEDICARE PART A B Care Teams Sugar House Supervisor Relationship Specialty Start Date End Date Niranjan Mccarty MD [address] [place] [address] PCP - General Adolescent Medicine 10/15/23
--- OUTSIDE RECORDS SUMMARY | 2025-06-28 11:41 | XMS_ITS | Encounter Summary ---
Author Organization [employer] ([place], [place], [place], [place]) Address [address] [place] [address] Care Team Providers Care Incident Analyst Name Role Phone Niranjan Mccarty MD Primary Care Provider [phone] Encounter Details Date Type Department Care Team (Late st Contact Info) Description 08/23/2021 Transcribed Document [facility] Family Medicine [address] [place] [address] ProviderAkash MD [address] [place], [place] [id number] Social History Tobacco Use Types Packs/Day Years [...] Vega MD - 08/23/2021 1:33 PM CDT [place] Suicide Severity Rating Scale (C-SSRS) Entered On: 08/23/2021 13:46 EDT Performed On: 08/23/2021 13:43 EDT by GEORGINA EVERETT RN [place] Suicide Severity Rating Scale (C-SSRS) CSSRS Past [...] [facility] Electrophysiology [address] [place] [phone] Adrienne Dunn MD [address] [facility] [address] [place], [place] [phone] documented as of this encounter Visit Diagnoses Not on filedocumented in this encounter Care Teams Incident Analyst Relationship Specialty Start Date End Date Niranjan Mccarty MD [address] [place] [address] PCP - General Adolescent Medicine 10/15/23 documented as of this encounter
--- OUTSIDE RECORDS SUMMARY | 2025-06-28 11:41 | XMS_ITS | Encounter Summary ---
Author Organization [employer] ([place], [place], [place], [place]) Address [address] [place] [address] Care Team Providers Care Warehouse Worker Name Role Phone Niranjan Mccarty MD Primary Care Provider [phone] Encounter Details Date Type Department Care Team (Late st Contact Info) Description 08/23/2021 Transcribed Document [facility] Family Medicine [address] [place] [address] ProviderAkash MD [address] [place], [place] [phone] Social History Tobacco Use Types Packs/Day Years [...] : Low risk (0) Broset Interventions : Cotton precautions for safety used GEORGINA EVERETT RN - 08/23/2021 13:43 EDT documented in this encounter Plan of Treatment Upcoming Encounters Date Type Department Care Team (Late st Contact Info) Description 09/07/2025 10:45 AM EDT Office Visit [facility] Electrophysiology [address] [place] [address] Adrienne Dunn MD [address] [facility] [address] [place] [address] documented as of this encounter Visit Diagnoses Not on filedocumented in this encounter Care Teams Warehouse Worker Relationship Specialty Start Date End Date Niranjan Mccarty MD [address] [place] [address] PCP - General Adolescent Medicine 10/15/23 documented as of this encounter
--- OUTSIDE RECORDS SUMMARY | 2025-06-28 11:41 | XMS_ITS | Encounter Summary ---
Author Organization [employer] ([place], [place], [place], [place]) Address [address] [place] [address] Care Team Providers Care Foundry Melt Supervisor Name Role Phone Niranjan Mccarty MD Primary Care Provider [phone] Encounter Details Date Type Department Care Team (Late st Contact Info) Description 10/10/2019 Transcribed Document [facility] [place] [address] [place] [address] ProviderAkash MD [address] [place], [place] [phone] Social History Tobacco Use Types Packs/Day Years Used Date Smoking Tobacco: Never Assessed Comments Unknown Sex and Gender Information Value Date Recorded Sex Assigned at Not on file Legal Sex Female 1:32 PM CDT Gender Identity Not on file Sexual Orientation Not on file documented as of this encounter Miscellaneous Notes * Cerner Conversion Note - Akash Vega MD - 10/10/2019 10:57 AM PODIATRIC MEDICINE DOCTOR Height and Weight, Routine Entered On: 10/11/2019 4:17 EST Performed On: 10/10/2019 10:57 EST by MEKA MANSFIELD RN Height and Weight, Routine Routine Weight Source : Standing scale Routine Weight Entry Format : [place] Routine Weight, Pounds : 141 lb Routine Weight, Ounces : 7 oz Routine Weight Calculation : 64.29 kg Height Source : Stated Height Entry Format : [place] Height, Feet : 5 ft Height, Inches [...] [facility] Electrophysiology [address] [place] [address] Adrienne Dunn MD [address] [place] [address] [address] [place] [phone] documented as of this encounter Visit Diagnoses Not on filedocumented in this encounter Care Teams Foundry Melt Supervisor Relationship Specialty Start Date End Date Niranjan Mccarty MD [address] [place] [address] PCP - General Adolescent Medicine 10/15/23 documented as of this encounter
--- OUTSIDE RECORDS SUMMARY | 2025-06-28 11:41 | XMS_ITS | Encounter Summary ---
Author Organization [employer] ([place], [place], [place], [place]) Address [address] [place] [address] Care Team Providers Care Customer Solutions Architect Name Role Phone Niranjan Mccarty MD Primary Care Provider [phone] Encounter Details Date Type Department Care Team (Late Contact Info) Description 06/13/2021 Transcribed Document [place] Family Medicine [facility] [place] [address] ProviderAkash MD [address] [place] [id number] Social History Tobacco Use Types Packs/Day Years [...] 09/07/2025 10:45 AM EDT Office Visit [facility] Electrophysiology [address] [place] [phone] Adrienne Dunn MD [address] [facility] [address] [place] [address] documented as of this encounter Visit Diagnoses Not on filedocumented in this encounter Care Teams Customer Solutions Architect Relationship Specialty Start Date End Date Niranjan Mccarty MD [address] [place] [address] PCP - General Adolescent Medicine 10/15/23 documented as of this encounter
--- OUTSIDE RECORDS SUMMARY | 2025-06-28 11:41 | XMS_ITS | Encounter Summary ---
Author Organization [employer] ([place], [place], [place], [place]) Address [address] [place] [address] Care Team Providers Care Product Development Coordinator Name Role Phone Niranjan Mccarty MD Primary Care Provider [phone] Encounter Details Date Type Department Care Team (Late st Contact Info) Description 06/13/2021 Transcribed Document [facility] [place] Family Medicine [address] [place] [address] ProviderAkash MD [address] [place], [place] [address] Social History Tobacco Use Types Packs/Day Years [...] Fats and oils Meat fat, or shortening. [place] butter, hydrogenated oils, palm oil, coconut oil, [...] Reviewed: 12/11/2018 Elsevier Patient Education ? 2020 [employer] Corporationvier Inc. Procedures Biventricular Pacemaker Implantation, Care After [...] these instructions at home: Medicines ??? Take bzdn-rrb-ybvneem and prescription medicines only as told by [...] and water are not available, use hand ice hockey coach. ? Change your dressing as told by [...] your chest for several days. ??? Take ruad-omq-wfrveei and prescription medicines only as told by [...] Reviewed: 10/04/2019 Elsevier Patient Education ? 2019 [employer] documented in this encounter Plan of Treatment Upcoming Encounters Date Type Department Care Team (Late st Contact Info) Description 09/07/2025 10:45 AM EDT Office Visit [facility] Electrophysiology [address] [place] [phone] Adrienne Dunn MD 1401 [facility] [address] [place] [address] documented as of this encounter Visit Diagnoses Not on filedocumented in this encounter Care Teams Product Development Coordinator Relationship Specialty Start Date End Date Niranjan Mccarty MD [address] [place] [address] PCP - General Adolescent Medicine 10/15/23 documented as of this encounter
--- OUTSIDE RECORDS SUMMARY | 2025-06-28 11:41 | XMS_ITS | Encounter Summary ---
Author Organization [employer] ([place], [place], [place], [place]) Address [address] [place] [address] Care Team Providers Care Hogshead Packer Name Role Phone Niranjan Mccarty MD Primary Care Provider [phone] Encounter Details Date Type Department Care Team (Late st Contact Info) Description 06/13/2021 Transcribed Document [facility] [place] [facility] [place] [address] ProviderAkash MD [address] [place] [address] Social History Tobacco Use Types [...] Vega MD - 06/13/2021 3:30 PM CDT [facility] [place] [id number] WILD TRANDAREN MENDOZA :1935 Visit Time:06/12/2021 Your [...] Dr. Dunn Appointment has been made Where: [facility] [address] [place] [address]- Business (1) Medications What How Much When [...] these instructions at home: Medicines ??? Take gtvv-top-uholvdg and prescription medicines only as told by [...] and water are not available, use hand attendant lodging facilities. ? Change your dressing as told by [...] your chest for several days. ??? Take kyds-bxn-icpxmek and prescription medicines only as told by [...] Reviewed: 10/04/2019 Elsevier Patient Education ?? 2020 ElseFriendly Wager App Inc. Heart-Healthy Eating Plan Heart-healthy meal planning [...] Fats and oils Meat fat, or shortening. [place] butter, hydrogenated oils, palm oil, coconut oil, [...] provider. Document Revised: 01/07/2019 Document Reviewed: 12/11/2018 [employer] Patient Education ?? 2020 [employer]. Emergency Awareness and Preventative Care STROKE is [...] Assistance with quitting is available by contacting 2-214-ODIT-NOW. This is a free resource providing counseling, [...] range between ( 0.0 and 7.0 ) [place] #: 0.48 K/uL -- Normal range between ( 0.16 and 1.00 ) [place] #: 0.16 x10(3)/uL -- Normal range between ( 0.00 and 0.80 ) [place] %: 8.0 % -- Normal range between [...] was given the opportunity to ask questions. Patient/Commercial Litigation Paralegal Name: Patient/Commercial Litigation Paralegal Signature: Relationship to Patient: Clinician/Hospital Commercial Litigation Paralegal Signature: Date: Electronically signed by Cecy, [facility] Conversion Television Service Engineer Cerner at 03/07/2023 1:48 PM CDT documented in this encounter Plan of Treatment Upcoming Encounters Date Type Department Care Team (Late st Contact Info) Description 09/07/2025 10:45 AM EDT Office Visit [address] [address] Adrienne Dunn MD [address] [place] [address] [address] [place] [address] documented as of this encounter Visit Diagnoses Not on filedocumented in this encounter Care Teams Hogshead Packer Relationship Specialty Start Date End Date Niranjan Mccarty MD [address] [place] [address] PCP - General Adolescent Medicine 10/15/23 documented as of this encounter
--- OUTSIDE RECORDS SUMMARY | 2025-06-28 11:41 | XMS_ITS | Clinical Summary ---
Author Organization [employer] ([place], [place], [place], [place]) Address [address] [place] [address] Care Team Providers Care Bead Wrapper Name Role Phone Niranjan Mccarty MD Primary Care Provider [phone] Allergies Active Allergy Reactions Criticality Noted Date [...] Description 04/06/2025 5:00 AM EDT Clinical Support [facility] Electrophysiology [address] [place] [address] Adrienne Dunn MD Encounter for adjustment [...] Date Garrett rded Speak language other than Tristanian at home Not on file 11/28/2023 Want [...] EDT Office Visit [facility] Electrophysiology [address] [place] [address] Adrienne Dunn MD [address] [place] [address] [address] [place] [address] Health Maintenance Due Date Last Done Comments [...] (12+) 03/0203/02/2025 Medical Devices Implanted Type Area Operating Engineer Device Identifier Shelf Expiration Date Model / Serial / Lot Pacemakers-06/13 Implanted:06/13 (Quantity not on file) Pacemakers [employer] JODY / [id number] / Description:DEPENDENT Insurance MEDICARE PART A B Care Teams Bead Wrapper Relationship Specialty Start Date End Date Niranjan Mccarty MD [address] [place] [address] PCP - General Adolescent Medicine 10/15/23
--- OUTSIDE RECORDS SUMMARY | 2025-06-28 11:41 | XMS_ITS | Encounter Summary ---
Author Organization [employer] ([place], [place], [place], [place]) Address [address] [place] [address] Care Team Providers Care Security Guard Name Role Phone Niranjan Mccarty MD Primary Care Provider [phone] Encounter Details Date Type Department Care Team (Late st Contact Info) Description 08/23/2021 Transcribed Document [facility] Family Medicine [facility] [place] [address] ProviderAkash MD [address], [place] [phone] Social History Tobacco Use Types Packs/Day Years [...] : 2 - Emergent Tracking Group : [facility] ED GEORGINA EVERETT RN - 08/23/2021 13:34 EDT Mode of Arrival : Stretcher Transported to ED by : Ambulance/ALS EMS Service : [facility] To Room Via : Stretcher Accompanied [...] ; Type: Allergy ; Updated By: JOSE TYSNO RN; Reviewed Date: 08/23/2021 13:37 EDT cephalexin [...] 08/23/2021 13:42:42 EDT) Problems(Active) Anxiety (SNOMED CT :52731583 ) Name of Problem: Anxiety ; Recorder: JOSE TYSON RN; Confirmation: Confirmed ; Classification: Patient Stated ; Code: 08000935 ; Contributor System: Splick.it ; Last Updated: 12/08/2014 8:41 EST ; Life Cycle Date: 12/08/2014 ; Life Cycle Status: Active ; Vocabulary: SNOMED CT Arthritis (SNOMED CT :8611533 ) Name of Problem: Arthritis ; Recorder: Nory Farfan RN; Confirmation: Confirmed ; Classification: Patient Stated ; Code: 8041830 ; Contributor System: Splick.it ; Last Updated: 06/12/2021 12:48 EDT ; Life Cycle Date: 06/12/2021 ; Life Cycle Status: Active ; Vocabulary: SNOMED CT At risk for sleep apnea (IMO :29772254 ) Name of Problem: At risk for sleep apnea ; Recorder: SYSTEM, SYSTEM; Confirmation: Confirmed ; Classification: Medical ; Code: 87481544 ; Last Updated: 10/09/2019 21:47 EST ; Life Cycle Date: 10/09/2019 ; Life Cycle Status: Active ; Vocabulary: IMO Atrial fibrillation (SNOMED CT :62166080 ) Name of Problem: Atrial fibrillation ; Recorder: JOSE TYSON RN; Confirmation: Confirmed ; Classification: Patient Stated ; Code: 41335022 ; Contributor System: Splick.it ; Last Updated: 12/08/2014 8:42 EST ; Life Cycle Date: 12/08/2014 ; Life Cycle Status: Active ; Vocabulary: SNOMED CT Atrial fibrillation (SNOMED CT :96377360 ) Name of Problem: Atrial fibrillation ; Recorder: DUANE TAVERA APRN; Confirmation: Confirmed ; Classification: Medical ; Code: 13571206 ; Contributor System: PowerChart ; Last Updated: 10/10/2019 11:36 EST ; Life Cycle Status: Active ; Vocabulary: SNOMED CT Chronic CHF (SNOMED CT :066457855 ) Name of Problem: Chronic CHF ; Recorder: JOSE TYSON RN; Confirmation: Confirmed ; Classification: Patient Stated ; Code: 248527761 ; Contributor System: PowerChart ; Last Updated: 12/08/2014 8:43 EST ; Life Cycle Date: 12/08/2014 ; Life Cycle Status: Active ; Vocabulary: SNOMED CT Chronic obstructive pulmonary disease (COPD) (SNOMED CT :23564839 ) Name of Problem: Chronic obstructive pulmonary disease (COPD) ; Recorder: Nory Farfan RN; Confirmation: Confirmed ; Classification: Patient Stated ; Code: 93016884 ; Contributor System: PowerChart ; Last Updated: 06/12/2021 12:49 EDT ; Life Cycle Date: 06/12/2021 ; Life Cycle Status: Active ; Vocabulary: SNOMED CT Chronic respiratory failure (SNOMED CT :78389228 ) Name of Problem: Chronic respiratory failure ; Recorder: JOSE TYSON RN; Confirmation: Confirmed ; Classification: Patient Stated ; Code: 32610554 ; Contributor System: PowerChart ; Last Updated: 12/08/2014 8:42 EST ; Life Cycle Date: 12/08/2014 ; Life Cycle Status: Active ; Vocabulary: SNOMED CT Diverticulosis (SNOMED CT :6655538987 ) Name of Problem: Diverticulosis ; Recorder: Nory Farfan RN; Confirmation: Confirmed ; Classification: Patient Stated ; Code: 8259932296 ; Contributor System: PowerChart ; Last Updated: 06/12/2021 12:48 EDT ; Life Cycle Date: 06/12/2021 ; Life Cycle Status: Active ; Vocabulary: SNOMED CT Fibromyalgia (SNOMED CT :372535142 ) Name of Problem: Fibromyalgia ; Recorder: Nory Farfan RN; Confirmation: Confirmed ; Classification: Patient Stated ; Code: 150785887 ; Contributor System: PowerChart ; Last Updated: 06/12/2021 12:48 EDT ; Life Cycle Date: 06/12/2021 ; Life Cycle Status: Active ; Vocabulary: SNOMED CT H/O hyperlipidemia (SNOMED CT :564452843 ) Name of Problem: H/O hyperlipidemia ; Recorder: JOSE TYSON RN; Confirmation: Confirmed ; Classification: Patient Stated ; Code: 876884376 ; Contributor System: PowerChart ; Last Updated: 12/08/2014 8:43 EST ; Life Cycle Date: 12/08/2014 ; Life Cycle Status: Active ; Vocabulary: SNOMED CT H/O sick sinus syndrome (SNOMED CT :228832135 ) Name of Problem: H/O sick sinus syndrome ; Recorder: JOSE TYSON RN; Confirmation: Confirmed ; Classification: Patient Stated ; Code: 944323929 ; Contributor System: PowerChart ; Last Updated: 12/08/2014 8:43 EST ; Life Cycle Date: 12/08/2014 ; Life Cycle Status: Active ; Vocabulary: SNOMED CT Hyperlipidemia (SNOMED CT :21724480 ) Name of Problem: Hyperlipidemia ; Recorder: AYSE; Confirmation: Confirmed ; Classification: Medical ; Code: 31413874 ; Contributor System: PowerChart ; Last Updated: 10/10/2019 11:36 EST ; Life Cycle Status: Active ; Vocabulary: SNOMED CT Hypertension (SNOMED CT :60248125 ) Name of Problem: Hypertension ; Recorder: [place]; Confirmation: Confirmed ; Classification: Medical ; Code: 52642694 ; Contributor System: PowerChart ; Last Updated: 10/10/2019 11:36 EST ; Life Cycle Status: Active ; Vocabulary: SNOMED CT Leg swelling (SNOMED CT :7850286808 ) Name of Problem: Leg swelling ; Recorder: JOSE TYSON RN; Confirmation: Confirmed ; Classification: Patient Stated ; Code: 1246452154 ; Contributor System: PowerChart ; Last Updated: 12/08/2014 8:44 EST ; Life Cycle Date: 12/08/2014 ; Life Cycle Status: Active ; Vocabulary: SNOMED CT Diagnoses(Active) Weakness Date: 08/23/2021 ; Diagnosis Type: Reason For Visit ; Confirmation: Complaint of ; Clinical Dx: Weakness ; Classification: Medical ; Clinical Service: Emergency medicine ; Code: PNED ; Probability: 0 ; Diagnosis Code: [id number] ED Height and Weight Height Source : Stated Height Entry Format : [place] Height, Feet : 5 ft(Converted to: 152 cm, 60 Inch) Height, Inches : 7 Inch(Converted to: 0 ft 7 Inch, 17.78 cm) Clinical Height : 170.18 cm Weight Source, ED : Critical estimated dosing weight Weight Entry Format : [place] Weight, Pounds : 140 lb Clinical Dosing Weight : 63.64 kg Body Surface Area (BSA) : 1.74 m2 Body Mass Index : 22 kg/m2 [place] Body Weight (IBW) : 61.16 kg GEORGINA EVERETT RN - 08/23/2021 13:34 EDT Electronically signed by [facility], [facility] Conversion Business Mail Entry Clerk Cerner at 03/07/2023 1:28 PM CDT documented in this encounter Plan of Treatment Upcoming Encounters Date Type Department Care Team (Late st Contact Info) Description 09/07/2025 10:45 AM EDT Office Visit [facility] Electrophysiology [address] [place], [place] [phone] Adrienne Dunn MD [address] [place] [address] [address] [place] [address] documented as of this encounter Visit Diagnoses Not on filedocumented in this encounter Care Teams Security Guard Relationship Specialty Start Date End Date Niranjan Mccarty MD [address] [place] [address] PCP - General Adolescent Medicine 10/15/23 documented as of this encounter
--- OUTSIDE RECORDS SUMMARY | 2025-06-28 11:41 | XMS_ITS | Encounter Summary ---
Author Organization [employer] ([place], [place], [place], [place]) Address [address] [place] [address] Care Team Providers Care Casting Operator Name Role Phone Niranjan Mccarty MD Primary Care Provider [phone] Encounter Details Date Type Department Care Team (Late st Contact Info) Description 10/10/2019 Transcribed Document [facility] Family Medicine [facility] [place] [address] ProviderAkash MD [address] [place], [place] [address] Social History Tobacco Use Types Packs/Day Years Used Date Smoking Tobacco: Never Assessed Comments Unknown Sex and Gender Information Value Date Recorded Sex Assigned at Not on file Legal Sex Female 1:32 PM CDT Gender Identity Not on file Sexual Orientation Not on file documented as of this encounter Miscellaneous Notes * Cerner Conversion Note - Akash Vega MD - 10/10/2019 11:58 AM PROCESS DEVELOPMENT ENGINEER UM Authorization Entered On: 10/10/2019 11:59 EST Performed On: 10/10/2019 11:58 EST by SABRINA MCKEON RN Primary Insurance Authorization Authorization and Policy Numbers : Insurance 1 Health Plan: MEDICARE Policy Number: [id number] Authorization Number: Insurance 2 Health Plan: [facility] Policy Number: [id number] Authorization Number: Insurance Primary Name : MEDICARE Policy Number: [id number] Historical Authorization Comments-Primary : No Authorization Comments Found SABRINA MCKEON RN - 10/10/2019 11:58 EST documented in this encounter Plan of Treatment Upcoming Encounters Date Type Department Care Team (Late st Contact Info) Description 09/07/2025 10:45 AM EDT Office Visit [facility] Electrophysiology [address] [place] [phone] [place] [address] [place] [address] [address] [place] [address] documented as of this encounter Visit Diagnoses Not on filedocumented in this encounter Care Teams Casting Operator Relationship Specialty Start Date End Date Niranjan Mccarty MD [address] [place] [address] PCP - General Adolescent Medicine 10/15/23 documented as of this encounter
--- OUTSIDE RECORDS SUMMARY | 2025-06-28 11:41 | XMS_ITS | Encounter Summary ---
Author Organization [employer] ([place], [place], [place], [place]) Address [address] [place] [address] Care Team Providers Care Singing Waiter Or Waitress Name Role Phone Niranjan Mccarty MD Primary Care Provider [phone] Encounter Details Date Type Department Care Team (Late st Contact Info) Description 10/10/2019 Transcribed Document [facility] Cardiology [address] [place] [address] [place] [address] [place] [address] [address] [place] [address] Social History Tobacco Use Types Packs/Day Years [...] MD-CAR Basic Information PCP: NIRANJAN MORRIS MD Side Seam Tender: Cole SAMUEL Chief Complaint chest pain History of Present Illness 83 year old female with a history of hypertension, hyperlipidemia, atrial fibrillation, SSS status post pacemaker placement, chronic anticoagulation with Coumadin, COPD. She presented to [facility] ER yesterday with complaints of chest pain. The pain was localized in the left side and radiated into her neck. She became diaphoretic and nauseated. The pain lasted for several minutes but returned later prompting her to seek medical attention. Troponin was negative however, based on her history and symptoms she was transferred to [facility] for evaluation. She is currently chest pain [...] l Past Medical History: Active Atrial fibrillation (38385577) Hyperlipidemia (97504748) Hypertension (67400468) Family History: Non contributory Procedure history: Appendectomy; (72272). cataract surgery. Cholecystectomy; (58740). eye surgery. foot surgery right. hand surgery. [...] of motion, Normal strength. Integumentary: Warm, Dry, [place]. Neurologic: Alert, Oriented. Psychiatric: Cooperative. Review / [...] Description 09/07/2025 10:45 AM EDT Office Visit [facility] Electrophysiology [address] [place] [address] Adrienne Dunn MD [address] [place] [address] [address] [place] [address] documented as of this encounter Visit Diagnoses Not on filedocumented in this encounter Care Teams Singing Waiter Or Waitress Relationship Specialty Start Date End Date Niranjan Mccarty MD [address] [place] [address] PCP - General Adolescent Medicine 10/15/23 documented as of this encounter
--- OUTSIDE RECORDS SUMMARY | 2025-06-28 11:41 | XMS_ITS | Encounter Summary ---
Author Organization [employer] ([place], [place], [place], [place]) Address [address] [place] [address] Care Team Providers Care Supervisor Residential Name Role Phone Niranjan Mccarty MD Primary Care Provider [phone] Encounter Details Date Type Department Care Team (Late st Contact Info) Description 08/23/2021 Transcribed Document [facility] [place] [address] ProviderAkash MD [address] [place], [place] [phone] Social History Tobacco Use Types Packs/Day Years [...] as documented in chart. Surgical history: Appendectomy; (98527). cataract surgery. Cholecystectomy; (20453). eye surgery. foot surgery right. hand surgery. [...] EDT Height Source Stated Height Entry Format [place] Height/Length, [place] (ft) 5 ft Height/Length [place] 7 Inch CLINICALHEIGHT 170.18 cm [place] Body Weight 61.16 kg Weight Source, ED Critical estimated dosing weight Weight Entry Format [place] Weight [place] lb 140 lb CLINICALWEIGHT 63.64 kg Body [...] Triage: ED C-SSRS: ED Clinical Reconciliation: ED hammer fitter: EKG: Lactic Acid Level with Reflex if [...] 15.1 % LOW Lymph # 1.28 K/uL [place] % 5.9 % [place] # 0.50 K/uL Eos % 3.3 % Eos # 0.28 Baso % 0.2 % Baso # 0.02 Slide Review No Urine Type. U CleanCatch Urine Color Yellow Urine Appearance Clear Urine Specific [place] 1.007 Urine pH Dipstick *8.0 Urine Leukocyte Esterase Negative Urine Nitrite Negative Urine Protein Dipstick Negative Urine Glucose Dipstick Negative Urine Ketones Dipstick Negative Urine Urobilinogen Dipstick 0.2 EU/dL Urine Bilirubin Dipstick Negative Urine Blood Dipstick Small Ur RBC 5-10 /HPF Ur WBC 0-2 /HPF Urine Culture if Indicated Not Indicated . Radiology results: Radiology Results (Last 48 hours) [id number] -- 08/23/2021 13:33 CR Chest 1 Vw [...] EDT, Discharge to: Home . Prescriptions: Prescription Manager Corporate Strategy Pharmacy: [facility] Dosepak 4 mg oral tablet [...] Description 09/07/2025 10:45 AM EDT Office Visit [facility] Electrophysiology [address] [place], [place] [phone] [place] [address] [place] [address] [address] [place] [phone] documented as of this encounter Visit Diagnoses Not on filedocumented in this encounter Care Teams Supervisor Residential Relationship Specialty Start Date End Date Niranjan Mccarty MD [address] [place] [address] PCP - General Adolescent Medicine 10/15/23 documented as of this encounter
--- OUTSIDE RECORDS SUMMARY | 2025-06-28 11:42 | XMS_ITS | Encounter Summary ---
Author Organization [employer] ([place], [place], [place], [place]) Address [address] [place] [address] Care Team Providers Care Substation Mechanic Name Role Phone Niranjan Mccarty MD Primary Care Provider [phone] Encounter Details Date Type Department Care Team (Late st Contact Info) Description 06/12/2021 Transcribed Document [facility] [place] [facility] [place] [address] ProviderAkash MD [address] [place] [id number] Social History Tobacco Use Types Packs/Day Years [...] Age: 85 Years Sex: Female : 1935 Contract Preparer: Julián Amaya MD Indication: dual chamber pacemaker [...] generator was a Medtronic model [id number] that replaced the old generator. Complications: No [...] Office Visit [facility] Electrophysiology [address] [place] [phone] Adrienne Dunn MD [address] [facility] [address] [place], [place] [phone] documented as of this encounter Visit Diagnoses Not on filedocumented in this encounter Care Teams Substation Mechanic Relationship Specialty Start Date End Date Niranjan Mccarty MD [address] [place] [address] PCP - General Adolescent Medicine 10/15/23 documented as of this encounter
--- OUTSIDE RECORDS SUMMARY | 2025-06-28 11:42 | XMS_ITS | Encounter Summary ---
Author Organization [employer] ([place], [place], [place], [place]) Address [address] [place] [address] Care Team Providers Care Tactical Deception Plans Officer Name Role Phone Niranjan Mccarty MD Primary Care Provider [phone] Encounter Details Date Type Department Care Team (Late st Contact Info) Description 06/12/2021 Transcribed Document [facility] Family Medicine [facility] [place] [address] ProviderAkash MD [address] [place] [phone] Social History Tobacco Use Types Packs/Day Years [...] Office Visit [facility] Electrophysiology [address] [place] [address] Adrienne Dunn MD [address] [facility] [address] [place], [place] [phone] documented as of this encounter Visit Diagnoses Not on filedocumented in this encounter Care Teams Tactical Deception Plans Officer Relationship Specialty Start Date End Date Niranjan Mccarty MD [address] [place] [address] PCP - General Adolescent Medicine 10/15/23 documented as of this encounter
--- OUTSIDE RECORDS SUMMARY | 2025-06-28 11:42 | XMS_ITS | Encounter Summary ---
Author Organization [employer] ([place], [place], [place], [place]) Address [address] [place] [address] Care Team Providers Care Plastic Duplicator Name Role Phone Niranjan Mccarty MD Primary Care Provider [phone] Encounter Details Date Type Department Care Team (Late st Contact Info) Description 06/13/2021 Transcribed Document [facility] [place] Family Medicine [facility] [place] [address] ProviderAkash MD [address] [place], [place] [address] Social History Tobacco Use Types Packs/Day Years [...] [facility] Discharge Note - EP Primary [place] Farmer: PCP: Niranjan Chavira Consults: NONE History of [...] Normal range of motion. Integumentary: Warm, Dry, [place]. PPM site left SC dressing dry and [...] PCP in 5 - 7 days. Primary [place]ridge Farmer in [address] Dunn in 1 week for wound/device check and OK to resume Coumadin Patient has been instructed on and verbalized an understanding of the above discharge instructions. Plan has been discussed and is in agreement with Dr. Jose Luis Pryor, RN documenting for Dr. Amaya Electronically signed by [facility], [facility] Conversion Manufacturing Laborer Cerner at 03/07/2023 1:27 PM CDT documented in this encounter Plan of Treatment Upcoming Encounters Date Type Department Care Team (Late st Contact Info) Description 09/07/2025 10:45 AM EDT Office Visit [facility] Electrophysiology [address] [place] [phone] [place] [address] [place] [address] [address] [place], [place] [phone] documented as of this encounter Visit Diagnoses Not on filedocumented in this encounter Care Teams Plastic Duplicator Relationship Specialty Start Date End Date Niranjan Mccarty MD [address] [place] [address] PCP - General Adolescent Medicine 10/15/23 documented as of this encounter
--- OUTSIDE RECORDS SUMMARY | 2025-06-28 11:42 | XMS_ITS | Encounter Summary ---
Author Organization [employer] ([place], [place], [place], [place]) Address [address] [place] [address] Care Team Providers Care Figure Model Name Role Phone Niranjan Mccarty MD Primary Care Provider [phone] Encounter Details Date Type Department Care Team (Late st Contact Info) Description 06/12/2021 Transcribed Document [facility] [place] [address] [place] [address] ProviderAkash MD [address] [place], [place] [phone] Social History Tobacco Use Types Packs/Day Years [...] Source : Stated Height Entry Format : [place] Height, Feet : 5 ft(Converted to: 152 cm, 60 Inch) Height, Inches : 7 Inch(Converted to: 0 ft 7 Inch, 17.78 cm) Clinical Height : 170.18 cm Weight Source : Standing scale Weight Entry Format : [place] Clinical Dosing Weight : 65.91 kg Weight, Pounds : 145 lb Body Surface Area (BSA) : 1.77 m2 Body Mass Index : 22.8 kg/m2 [place] Body Weight : 61 kg Nory Farfan [...] Nory Farfan RN - 06/12/2021 12:53 EDT [place] Suicide Severity Rating Scale (C-SSRS) CSSRS Past [...] Daughter Legal Guardian : No Support Person/Patient Order Dispatcher : Yes Support Person/Pt Rep Name : daughter- sherley gómez Support Person/Pt Rep Contact Information : gordon [phone] Want Family/Rep/Phys Notified of Admit : No Emergency Contact #1 : NA Emergency Contact #1 Phone Number : NA Emergency Contact #1 Relationship : NA Emergency Contact #2 : NA Emergency Contact #2 Phone Number : NA Emergency Contact #2 Relationship : NA Information Obtained From : Patient Primary Language : Uzbek Preferred Communication Mode : Verbal Communication Barrier : None Data Warehousing Manager Needed : No Nory Farfan RN - [...] Scale Risk Level : 0-24 Low Risk [place] Fall Interventions : Adequate lighting, Bed in [...] Office Visit [facility] Electrophysiology [address] [place] [address] Adrienne Dunn MD [address] [place] [address] [address] [place] [address] documented as of this encounter Visit Diagnoses Not on filedocumented in this encounter Care Teams Figure Model Relationship Specialty Start Date End Date Niranjan Mccarty MD [address] [place] [address] PCP - General Adolescent Medicine 10/15/23 documented as of this encounter
--- OUTSIDE RECORDS SUMMARY | 2025-06-28 11:42 | XMS_ITS | Encounter Summary ---
Author Organization [employer] ([place], [place], [place], [place]) Address [address] [place] [address] Care Team Providers Care Dog Races Manager Name Role Phone Niranjan Mccarty MD Primary Care Provider [phone] Encounter Details Date Type Department Care Team (Late st Contact Info) Description 06/12/2021 Transcribed Document [facility] [place] Family Medicine [facility] [place] [address] ProviderAkash MD [address] [place] [phone] Social History Tobacco Use Types Packs/Day Years [...] Description of Event : Report called to [facility]. Pt transferred to room 428 MIRTA CRUM RN - 06/12/2021 20:09 EDT Electronically signed by [facility] Conversion Medical Resident Cerner at 03/07/2023 1:36 PM CDT documented in this encounter Plan of Treatment Upcoming Encounters Date Type Department Care Team (Late st Contact Info) Description 09/07/2025 10:45 AM EDT Office Visit [facility] Electrophysiology [address] [place] [address] Adrienne Dunn MD [address] [facility] [address] [place], [place] [phone] documented as of this encounter Visit Diagnoses Not on filedocumented in this encounter Care Teams Dog Races Manager Relationship Specialty Start Date End Date Niranjan Mccarty MD [address] [place] [address] PCP - General Adolescent Medicine 10/15/23 documented as of this encounter
--- OUTSIDE RECORDS SUMMARY | 2025-06-28 11:42 | XMS_ITS | Encounter Summary ---
Author Organization [employer] ([place], [place], [place], [place]) Address [address] [place] [address] Care Team Providers Care Bead Trimmer Name Role Phone Niranjan Mccarty MD Primary Care Provider [phone] Encounter Details Date Type Department Care Team (Late st Contact Info) Description 06/13/2021 Transcribed Document [facility] [place] [address] [place] [address] ProviderAkash MD [address] [place], [place] [id number] Social History Tobacco Use Types Packs/Day Years [...] Insurance 1 Health Plan: MEDICARE Policy Number: [id number] Authorization Number: Insurance 2 Health Plan: [facility] Policy Number: [id number] Authorization Number: Insurance Primary Name : MEDICARE Authorized Service Begin Date-Primary : 06/12/2021 EDT Historical Authorization Comments-Primary : No Authorization Comments Found Jen Rothman Rn-Utilization Review - 06/13/2021 13:21 EDT Electronically signed by Cecy [facility] Conversion Detective Automobile Section Cerner at 03/07/2023 1:31 PM CDT documented in this encounter Plan of Treatment Upcoming Encounters Date Type Department Care Team (Late st Contact Info) Description 09/07/2025 10:45 AM EDT Office Visit [facility] Electrophysiology [address] [place] [address] [phone] Adrienne Dunn MD [address] [place] [address] [address] [place] [phone] documented as of this encounter Visit Diagnoses Not on filedocumented in this encounter Care Teams Bead Trimmer Relationship Specialty Start Date End Date Niranjan Mccarty MD [address] [place] [address] PCP - General Adolescent Medicine 10/15/23 documented as of this encounter
--- OUTSIDE RECORDS SUMMARY | 2025-06-28 11:42 | XMS_ITS | Encounter Summary ---
Author Organization [employer] ([place], [place], [place], [place]) Address [address] [place] [address] Care Team Providers Care Gunnery/Ordnance Officer Name Role Phone Niranjan Mccarty MD Primary Care Provider [phone] Encounter Details Date Type Department Care Team (Late st Contact Info) Description 06/12/2021 Transcribed Document [facility] [place] Family Medicine [facility] [place] [address] ProviderAkash MD [address] [place], [place] [phone] Social History Tobacco Use Types Packs/Day Years [...] Daughter Legal Guardian : No Support Person/Patient Rechecker : Yes Support Person/Pt Rep Name : daughter- sherley gómez Contact Password : Fan Support Person/Pt Rep Contact Information : sherley- [phone] Want Family/Rep/Phys Notified of Admit : No Emergency Contact #1 : NA Emergency Contact #1 Phone Number : NA Emergency Contact #1 Relationship : NA Emergency Contact #2 : NA Emergency Contact #2 Phone Number : NA Emergency Contact #2 Relationship : NA Information Obtained From : Patient Primary Language : Malaysian Preferred Communication Mode : Verbal Communication Barrier : None Doubler Operator Needed : Marilyn Ruvalcaba Non Emp Traveler [...] Scale Risk Level : 25-45 Medium Risk [place] Fall Interventions : Adequate lighting, Bed in [...] Source : Stated Height Entry Format : [place] Height, Feet : 5 ft(Converted to: 152 cm, 60 Inch) Height, Inches : 7 Inch(Converted to: 0 ft 7 Inch, 17.78 cm) Clinical Height : 170.18 cm Weight Source : Standing scale Weight Entry Format : [place] Clinical Dosing Weight : 65.91 kg Weight, Pounds : 145 lb Body Surface Area (BSA) : 1.77 m2 Body Mass Index : 22.8 kg/m2 [place] Body Weight : 61 kg Ramandeepmarine Marilyn [...] Reina Emp Traveler - 06/12/2021 23:10 EDT [place] Suicide Severity Rating Scale (C-SSRS) CSSRS Past [...] Emp Traveler RN - 06/12/2021 23:10 EDT Electronically signed by Sherri Sam Conversion Predictive Maintenance Specialist Cerner at 03/07/2023 1:26 PM CDT documented in this encounter Plan of Treatment Upcoming Encounters Date Type Department Care Team (Late st Contact Info) Description 09/07/2025 10:45 AM EDT Office Visit [facility] Electrophysiology [address] [place] [address] Adrienne Dunn MD [address] [place] [address] [address] [place] [address] documented as of this encounter Visit Diagnoses Not on filedocumented in this encounter Care Teams Gunnery/Ordnance Officer Relationship Specialty Start Date End Date Niranjan Mccarty MD [address] [facility] [address] [place] [address] PCP - General Adolescent Medicine 10/15/23 documented as of this encounter
[2025-06-28 12:58] LABS: PHA INR Fingerstick 2.5 (0.9-1.1)
== END 2025-06-28 12:59 ==
LOC: ACC 11:34
PROVIDERS: PCP Internal Medicine Adolescent Medicine; Visit Provider Internal Medicine Adolescent Medicine
DX: Z79.01 Long term (current) use of anticoagulants (principal); I48.91 Unspecified atrial fibrillation
CPT/HCPCS: 85610; 99211; G0463

== ENCOUNTER → 2025-06-30 10:52 | Day surgery (SDC) | payer MEDICARE, OTHER, SELFPAY ==
[2025-04-06 11:46] VITALS: BMI 20.3
[2025-06-28 14:21] VITALS: BMI 18.8
--- NOTE | 2025-06-30 11:34 | EXP.GEN.HP ---
HPI HPI HPI: Forwarded from office visit note dated February 23, 2025: The patient returns after being seen by her reverse logistics analyst. When asked about her left lower extremity squamous cell carcinoma in terms of possible reexcision for surgical margin . The patient states that she did not discuss this with her reverse logistics analyst. She is not interested in additional surgical intervention with regard to this lesion. Of concern today for the patient is a large fungating mass along the central aspect of the chest. She states that this was biopsied around the edges by her reverse logistics analyst and that the final pathology showed squamous something . Recent dermatology evaluation (biopsy procedure report) reviewed. Pathology is currently not available but presumptively she was diagnosed with squamous carcinoma. Labs dated January 07, 2025 reviewed. Hemoglobin 11.1. Creatinine 0.8. Pulmonology note dated January 28, 2025 reviewed. [facility] Disclaimer: The information contained in this section may have been updated after the patient was seen, as this information can be updated by other users. Medical History NSTEMI (non-ST elevated myocardial infarction) Staphylococcus aureus pneumonia Dyspnea on exertion Atypical pneumonia Multiple pulmonary nodules History of gastroesophageal reflux (GERD) History of skin cancer History of fibromyalgia History of arthritis History of hyperlipidemia History of hypertension History of pacemaker Surgical History History of surgical removal of skin lesion S/P placement of cardiac pacemaker History of colonoscopy Family History Other No significant family history Social History Smoking Status: Never smoker alcohol intake: never substance use type: denies use current occupational status: retired Travel in the last 8 weeks?: None household members: spouse housing: house current occupational exposures/hazards: No caffeine: No Have you lived/traveled outside US in past 30 days?: No Contact w/someone who lives/traveled outside US past 30 days?: No Exposure to someone with infectious disease in past 14 days?: No Do you have a fever (greater than 100.4 F or 38 C)?: No Have you tested positive for COVID-19?: No Exposed to someone with COVID-19 in past 14 days?: No Do you have a sore throat?: No Do you have a cough?: No Do you have any weakness?: No Do you have any diarrhea?: No Are you experiencing any unusual bleeding?: No Do you have any muscle aches/pain?: No Do you have any abdominal pain?: No Are you experiencing loss of taste or smell?: No Other Medical History Have you received the Flu Vaccine for this season: No Have you received the Pneumonia Vaccine: No Review of Systems Review of Systems Review of systems:: pertinent systems reviewed and negative unless documented below Meds Home Medications and Allergies Home Medications ?Medication ?Instructions ?Recorded ?Confirmed ?Type umeclidinium 62.5 mcg-vilanterol 1 puff inhalation DAILY Breathing 02/16/18 06/28/25 History 25 mcg/actuation powdr for problems 30 days ##60 inhalation acetaminophen 500 mg tablet 500 mg PO Q4HP PRN As Needed For 07/19/20 06/28/25 History Fever Or Pain alprazolam 0.5 mg tablet (Xanax) 0.5 mg PO TID Anxiety 07/19/20 06/28/25 History sotalol 160 mg tablet 160 mg PO BID heart 12/07/20 05/11/25 History warfarin 7.5 mg tablet 7.5 mg PO HS Blood thinner 05/21/23 05/11/25 History digoxin 125 mcg (0.125 mg) tablet 0.125 mg PO DAILY 12/16/23 06/28/25 History torsemide 10 mg tablet 10 mg PO NEEDED PRN Fluid 12/16/23 06/28/25 History sodium chloride 0.65 % nasal spray 2 spray intranasal Q4H PRN 04/19/24 06/28/25 Rx aerosol ([place] Saline) epistaxis #50 mL New Prescriptions to Start Prescriptions: Allergies Allergy/AdvReac Type Severity Reaction Status Date / Time ciprofloxacin (From [facility]) Allergy Severe DIFFICULTY Verified 05/11/25 11:50 SPEAKING,SHORTNESS OF BREATH codeine Allergy Severe DIFFICULTY Verified 05/11/25 11:50 SPEAKING, SHORTNESS OF BREATH hydrocortisone (From Cipro Allergy Severe DIFFICULTY Verified 05/11/25 11:50 HC) SPEAKING,SHORTNESS OF BREATH Iodinated Contrast Media Allergy Severe LOCKED JAWS Verified 05/11/25 11:50 (Iodinated Contrast Media - IV Dye) fexofenadine (From Radha) Allergy Intermediate LIPS SWELL Verified 05/11/25 11:50 ioxaglic acid Allergy Intermediate I-HIVES; Verified 05/11/25 11:50 LIPS SWELL loratadine (From Claritin) Allergy Intermediate LIPS SWELL Verified 05/11/25 11:50 Penicillins Allergy Intermediate I-RASH Verified 05/11/25 11:50 rofecoxib Allergy Intermediate MAKES Verified 05/11/25 11:50 SICK ALL OVER tetracaine Allergy Mild PAIN IN EYE Verified 05/11/25 11:50 azithromycin (AZITHROMYCIN) Allergy Unknown Unknown Verified 05/11/25 11:50 allergy reaction calcium carbonate (From Allergy Unknown Unknown Verified 05/11/25 11:50 OS-ARMIDA) allergy reaction cefuroxime (CEFUROXIME) Allergy Unknown Unknown Verified 05/11/25 11:50 allergy reaction cerivastatin Allergy Unknown Unknown Verified 05/11/25 11:50 allergy reaction erythromycin base Allergy Unknown Unknown Verified 05/11/25 11:50 allergy reaction lovastatin (From Advicor) Allergy Unknown UNKNOWN Verified 05/11/25 11:50 menaquinone-7 (vitamin K2) Allergy Unknown Unknown Verified 05/11/25 11:50 (VITAMIN K2) allergy reaction niacin (From Advicor) Allergy Unknown UNKNOWN Verified 05/11/25 11:50 phytonadione (vitamin K1) Allergy Unknown UNKOWN Verified 05/11/25 11:50 (phytonadione) Sulfa (Sulfonamide Allergy Unknown Unknown Verified 05/11/25 11:50 Antibiotics) allergy reaction cortisone AdvReac Intermediate SWELLING Verified 05/11/25 11:50 aspirin (From Percodan) AdvReac Mild HYPER Verified 05/11/25 11:50 clarithromycin (From Biaxin) AdvReac Mild NA-DIARRHEA Verified 05/11/25 11:50 oxycodone (From Percodan) AdvReac Mild HYPER Verified 05/11/25 11:50 Exam Data for Last 24 hours I & O for Last 24 hours: Intake & Output 06/27/25 06/28/25 06/29/25 06/30/25 11:59 11:59 11:59 11:59 Weight 120 lb Constitutional Constitutional: no acute distress *Routine HEENT Exam Head: Present normocephalic Eye: Present EOMI ENT: Present mucous membranes moist *Routine Neck Exam Neck: Present full ROM *Routine Respiratory Exam Respiratory: Absent respiratory distress *Routine Cardiovascular Exam Cardiovascular: Absent tachycardia *Routine Abdominal Exam Abdominal: Present soft *Routine Rectal Exam Rectal:: deferred *Routine Genitalia Exam Genitalia:: deferred *Routine Extremities Exam Extremities: Present full ROM *Routine Skin Exam Skin: Absent erythema Comments: Unchanged fungating 4.5 cm likely squamous cell carcinoma along central chest. Satellite regional skin lesions also noted. *Routine Neurological Exam Neurological: Present alert Assessment and Plan *Assessment and plan (1) Squamous cell carcinoma of skin of chest: Status: Acute Category: Medical Code(s): C44.529 - Squamous cell carcinoma of skin of other part of trunk Plan: Excision of skin lesion(s) (procedure room) today I have discussed the risks and benefits including, but not limited to: Bleeding Infection Damage to surrounding tissue Inherent risks of sedation The patient agrees to proceed.
--- NOTE | 2025-06-30 11:39 | EXP.OP.NOTE ---
Date of procedure: 06/30/25 Pre-op Diagnosis:: Squamous cell carcinoma (mid chest) with satellite lesion Post-op Diagnosis:: Same Procedure performed:: Excision of 4.5 cm mid chest squamous cell carcinoma Excision of mid upper chest satellite lesion (0.75 cm) Surgeon:: Sergey Hutchinson MD Anesthesia: local Estimated blood loss (mL): 10 Operative findings:: Lesions excised in toto Wounds left open to heal by secondary intention Operative note:: After informed consent was obtained the patient was taken to the procedure room. Her mid chest was prepped and draped in a sterile fashion. After infiltration with local anesthetic an incision was made around the 0.75 cm satellite lesion in the upper mid chest. The lesion was excised sharply into the deep subcutaneous tissue. Once freed from surrounding tissue it was passed off for pathologic evaluation. The 4.5 cm fungating lesion in the mid central chest was excised in a similar manner. Thermal cautery was utilized to achieve hemostasis. Wounds were left open to heal by secondary intention. Dressings were applied and the patient was discharged home in stable condition. Condition: stable Disposition: no change Specimens:: Mid chest squamous cell carcinoma Mid upper chest satellite lesion Complications:: No immediate
[2025-06-30 11:49] VITALS: BP 148/85; PULSE 65; RESP 16; TEMP 36.6; O2SAT 95
[2025-06-30] MEDS: LIDOCAINE 1% 20ML MDV 20 ML (12:35)
[2025-06-30 12:45] VITALS: BP 162/101; PULSE 76; RESP 18; O2SAT 98
[2025-06-30 12:50] VITALS: BP 155/85; PULSE 64; RESP 18; O2SAT 95
[2025-06-30 13:05] VITALS: BP 154/85; PULSE 64; RESP 17; O2SAT 95
[2025-06-30 13:36] VITALS: BP 143/107; PULSE 83; RESP 17; TEMP 36.6; O2SAT 98
--- NOTE | 2025-06-30 13:42 | SUR.PHASEII ---
when pt arrived to post op, her initial BP was 143/107. Pt stated she took her home BP meds this morning. Pt appeared anxious and asked this RN if she could get admitted for her high BP. I explained to pt, that I could call her PCP to see if they could see her as a pt today to discuss BP meds or I could call Dr Hutchinson to see if he wanted her seen in the ER for HTN. At this point pt began c/o numbness throughout her body and demanded that this security agent her to the hospital. This RN explained to pt that I could not personally admit her and that I could call Dr Hutchinson or her PCP to see if they wanted her to be seen in the ER. At 1250 pt's BP went down to 155/85 and pt was no longer c/o of numbness all over her body and said she felt fine to go home. Pt given strict return instructions if any other issues came up and to call her PCP if her blood pressure got elevated again. Pt and her two caregivers all verbalized understanding and all stated they were comfortable to have pt discharged from postop.
== END | disposition home or self-care (01) ==
PROVIDERS: PCP Internal Medicine Adolescent Medicine; Visit Provider Surgery
PROC: (CPT 11602; principal; 2025-04-07 11:30)
DX: C44.529 Squamous cell carcinoma of skin of other part of trunk (principal); I10 Essential (primary) hypertension; Z79.01 Long term (current) use of anticoagulants; Z95.0 Presence of cardiac pacemaker; Z88.1 Allergy status to other antibiotic agents; Z88.8 Allergy status to other drugs, medicaments and biological substances; Z88.0 Allergy status to penicillin; Z88.6 Allergy status to analgesic agent; Z88.5 Allergy status to narcotic agent; Z88.4 Allergy status to anesthetic agent; Z88.2 Allergy status to sulfonamides
CPT/HCPCS: 11602; 88305; J2003

== ENCOUNTER 2025-07-03 23:30 | Emergency (ER) | payer MEDICARE, OTHER, SELFPAY ==
[2025-07-03 23:33] VITALS: BP 154/86; PULSE 69; RESP 18; O2SAT 97; BMI 18.8
--- OUTSIDE RECORDS SUMMARY | 2025-07-03 23:41 | XMS_ITS | Encounter Summary ---
Author Organization [employer] ([place], [place], [place], [place]) Address [address] [address] Care Team Providers Care Supervisor Agency Appointments Name Role Phone Niranjan Mccarty MD Primary Care Provider [phone] Encounter Details Date Type Department Care Team (Late st Contact Info) Description 10/12/2019 Transcribed Document [facility] [place] [facility] [place] [address] ProviderAkash MD [address] [place], [place] [id number] Social History Tobacco Use Types Packs/Day Years Used Date Smoking Tobacco: Never Assessed Comments Unknown Sex and Gender Information Value Date Recorded Sex Assigned at Not on file Legal Sex Female 1:32 PM CDT Gender Identity Not on file Sexual Orientation Not on file documented as of this encounter Miscellaneous Notes * Cerner Conversion Note - Akash Vega MD - 10/12/2019 9:35 AM GUEST SERVICE REPRESENTATIVE Patient: TRAN PEGUERO Age: 83 years Sex: [...] home oxygen, gastric ulcer who presented to [facility] ER today with complaints of chest pain. [...] any, fever or chills. Lab workup at [facility] showed WBC count 5.6, hemoglobin 11.7, platelets [...] significant chest pain. Patient requested transfer to [facility] to be evaluated by her music professor here. She was admitted to telemetry. Troponin [...] Description 09/07/2025 10:45 AM EDT Office Visit [facility] Electrophysiology [address] [place] [phone] [place] [address] [place] [address] [address] [place] [address] documented as of this encounter Visit Diagnoses Not on filedocumented in this encounter Care Teams Supervisor Agency Appointments Relationship Specialty Start Date End Date Niranjan Mccarty MD [address] [place] [address] PCP - General Adolescent Medicine 10/15/23 documented as of this encounter
--- OUTSIDE RECORDS SUMMARY | 2025-07-03 23:41 | XMS_ITS | Encounter Summary ---
Author Organization [employer] ([place], [place], [place], [place]) Address [address] [place] [address] Care Team Providers Care Leather Cutter Name Role Phone Niranjan Mccarty MD Primary Care Provider [phone] Encounter Details Date Type Department Care Team (Late st Contact Info) Description 10/09/2019 Transcribed Document [facility] [place] [address] ProviderAkash MD [address] [place] [phone] Social History Tobacco Use Types Packs/Day Years Used Date Smoking Tobacco: Never Assessed Comments Unknown Sex and Gender Information Value Date Recorded Sex Assigned at Not on file Legal Sex Female 1:32 PM CDT Gender Identity Not on file Sexual Orientation Not on file documented as of this encounter Miscellaneous Notes * Cerner Conversion Note - Akash Vega MD - 10/09/2019 9:18 PM SEAT COVERER Evaluation, Physical Therapy Entered On: 10/10/2019 10:57 [...] VAN MCKEON PT - 10/10/2019 10:39 EST [facility] Topics Physical Therapy Education Grid Role of [...] VAN MCKEON, PT - 10/10/2019 10:39 EST Manager Billing Goals Mobility/Bed Mobility LTG PT Grid Goal [...] with small steps. Patient also transfered to [facility] with supervision and required [...] VAN MCKEON, PT - 10/10/2019 10:39 EST [employer] PT Charges PT Therap. Exercise 15 min : 1 PT Ther Activities Ea 15 Min : 1 PT Eval Moderate Complexity : 1 VAN MCKEON, PT - 10/10/2019 10:39 EST Electronically signed by [facility], [facility] Conversion Hospital Admissions Officer Cerner at 03/07/2023 1:23 PM CDT documented in this encounter Plan of Treatment Upcoming Encounters Date Type Department Care Team (Late st Contact Info) Description 09/07/2025 10:45 AM EDT Office Visit [facility] Electrophysiology [address] [place] [address] Adrienne Dunn MD [address] [facility] [address] [place] [address] documented as of this encounter Visit Diagnoses Not on filedocumented in this encounter Care Teams Leather Cutter Relationship Specialty Start Date End Date Niranjan Mccarty MD [address] [place] [address] PCP - General Adolescent Medicine 10/15/23 documented as of this encounter
--- OUTSIDE RECORDS SUMMARY | 2025-07-03 23:41 | XMS_ITS | Encounter Summary ---
Author Organization [employer] ([place], [place], [place], [place]) Address [address] [place] [address] Care Team Providers Care Bender Helper Name Role Phone Niranjan Mccarty MD Primary Care Provider [phone] Encounter Details Date Type Department Care Team (Late st Contact Info) Description 10/13/2019 Transcribed Document [facility] [place] [facility] [place] [address] ProviderAkash MD [address] [place] [phone] Social History Tobacco Use Types Packs/Day Years Used Date Smoking Tobacco: Never Assessed Comments Unknown Sex and Gender Information Value Date Recorded Sex Assigned at Not on file Legal Sex Female 1:32 PM CDT Gender Identity Not on file Sexual Orientation Not on file documented as of this encounter Miscellaneous Notes * Cerner Conversion Note - Historical ProviderMD - 10/13/2019 8:26 AM DATA DESIGNER Discharge Summary, PT Entered On: 10/13/2019 8:27 [...] WILLIE GOLDEN, PT - 10/13/2019 8:26 EST [facility]pc Goals Mobility/Bed Mobility LTG PT Grid Goal [...] - 10/13/2019 8:26 EST Electronically signed by [facility], [facility] Conversion Adding Machine Servicer Cerner at 03/07/2023 1:24 PM CDT documented in this encounter Plan of Treatment Upcoming Encounters Date Type Department Care Team (Late st Contact Info) Description 09/07/2025 10:45 AM EDT Office Visit [facility] Electrophysiology [address] [place], [place] [phone] Adrienne Dunn MD [address] [place] [address] [address] [place] [address] documented as of this encounter Visit Diagnoses Not on filedocumented in this encounter Care Teams Bender Helper Relationship Specialty Start Date End Date Niranjan Mccarty MD [address] [place] [address] PCP - General Adolescent Medicine 10/15/23 documented as of this encounter
--- OUTSIDE RECORDS SUMMARY | 2025-07-03 23:41 | XMS_ITS | Encounter Summary ---
Author Organization [employer] ([place], [place], [place], [place]) Address [address] [place] [address] Care Team Providers Care Field Control Inspector Name Role Phone Niranjan Mccarty MD Primary Care Provider [phone] Encounter Details Date Type Department Care Team (Late st Contact Info) Description 10/10/2019 Transcribed Document [facility] [place] [address] ProviderAkash MD [address] [place] [phone] Social History Tobacco Use Types Packs/Day Years Used Date Smoking Tobacco: Never Assessed Comments Unknown Sex and Gender Information Value Date Recorded Sex Assigned at Not on file Legal Sex Female 1:32 PM CDT Gender Identity Not on file Sexual Orientation Not on file documented as of this encounter Miscellaneous Notes * Cerner Conversion Note - Akash Vega MD - 10/10/2019 8:35 AM NURSERY SCHOOL ATTENDANT Patient: TRAN PEGUERO Age: 83 Years Sex: [...] Lymph # 1.79 x10(3)/uL 10/09/2019 21:53 EST Elliott % 10.3 % (High) 10/10/2019 02:57 EST Elliott % 8.0 % 10/09/2019 21:53 EST Elliott # 0.75 K/uL 10/10/2019 02:57 EST Elliott # 0.59 K/uL 10/09/2019 21:53 EST Eos [...] 10/10/2019 02:57 EST Electronically signed by Interface, [facility] Conversion Pasting Machine Offbearer Cerner at 03/07/2023 1:54 PM CDT documented in this encounter Plan of Treatment Upcoming Encounters Date Type Department Care Team (Late st Contact Info) Description 09/07/2025 10:45 AM EDT Office Visit [facility] Electrophysiology [address] [place] [phone] Adrienne Dunn MD [address] [place] [address] [address] [place] [address] documented as of this encounter Visit Diagnoses Not on filedocumented in this encounter Care Teams Field Control Inspector Relationship Specialty Start Date End Date Niranjan Mccarty MD [address] [place] [address] PCP - General Adolescent Medicine 10/15/23 documented as of this encounter
--- OUTSIDE RECORDS SUMMARY | 2025-07-03 23:41 | XMS_ITS | Encounter Summary ---
Author Organization [employer] ([place], [place], [place], [place]) Address [address] [place] [address] Care Team Providers Care Tile Trimmer Name Role Phone Niranjan Mccarty MD Primary Care Provider [phone] Encounter Details Date Type Department Care Team (Late st Contact Info) Description 10/12/2019 Transcribed Document [facility] Cardiology [address] [place] [phone] [place] [address] [place] [address] [address] [place] [phone] Social History Tobacco Use Types Packs/Day Years [...] 1935 Associated Diagnoses: None Author: ADI DRIVER, DISULFURIZER TENDER-INT Basic Information PCP: NIRANJAN MORRIS MD Assembler Garment Form: Cole SAMUEL Subjective NAD. No complaints of [...] Normal strength, No deformity. Integumentary: Warm, Dry, [place], Intact, No rash. Neurologic: Alert, Oriented, No [...] EDT Office Visit [facility] Electrophysiology [address] [place] [phone] Adrienne Dunn MD [address] [place] [address] [address] [place] [phone] documented as of this encounter Visit Diagnoses Not on filedocumented in this encounter Care Teams Tile Trimmer Relationship Specialty Start Date End Date Niranjan Mccarty MD [address] [place] [address] PCP - General Adolescent Medicine 10/15/23 documented as of this encounter
--- OUTSIDE RECORDS SUMMARY | 2025-07-03 23:41 | XMS_ITS | Encounter Summary ---
Author Organization [employer] ([place], [place], [place], [place]) Address [address] [place] [address] Care Team Providers Care Cycle Counter Name Role Phone Niranjan Mccarty MD Primary Care Provider [phone] Encounter Details Date Type Department Care Team (Late st Contact Info) Description 10/09/2019 Transcribed Document [facility] [place] [facility] [place] [address] ProviderAkash MD [address] [place] [id number] Social History Tobacco Use Types Packs/Day Years Used Date Smoking Tobacco: Never Assessed Comments Unknown Sex and Gender Information Value Date Recorded Sex Assigned at Not on file Legal Sex Female 1:32 PM CDT Gender Identity Not on file Sexual Orientation Not on file documented as of this encounter Miscellaneous Notes * Cerner Conversion Note - Akash Vega MD - 10/09/2019 9:20 PM DOOR TO DOOR SALESMAN Consult Phone Call Documentation Entered On: 10/10/2019 10:25 EST Performed On: 10/09/2019 21:20 EST by Delma Cox, [facility] Coord Phone Call for Consults Consult Phone Call/Page Attempt : First call Consult Reason : chest pain, AFIB Physician Requesting Consult : CINTHIA ENNIS MD Physician Requested for Consult : VIRY ESTRADA MD-CAR Provider Service Notified Name : Cardiology Physician Covering for Consult : zafar Date and Time Call Returned : 10/10/2019 10:25 EST Consult, Additional Information : spoke to [facility] Delma Cox, [facility] Coord - 10/10/2019 10:13 EST Electronically signed by Cecy, [facility] Conversion Carrot Buncher Cerner at 03/07/2023 1:41 PM CDT documented in this encounter Plan of Treatment Upcoming Encounters Date Type Department Care Team (Late st Contact Info) Description 09/07/2025 10:45 AM EDT Office Visit [facility] Electrophysiology [address] [place] [address] [place] [address] [place] [address] [address] [place] [phone] documented as of this encounter Visit Diagnoses Not on filedocumented in this encounter Care Teams Cycle Counter Relationship Specialty Start Date End Date Niranjan Mccarty MD [address] [place] [address] PCP - General Adolescent Medicine 10/15/23 documented as of this encounter
--- OUTSIDE RECORDS SUMMARY | 2025-07-03 23:41 | XMS_ITS | Encounter Summary ---
Author Organization [employer] ([place], [place], [place], [place]) Address [address] [place] [address] Care Team Providers Care Utility Worker [place] Name Role Phone Niranjan Mccarty MD Primary Care Provider [phone] Encounter Details Date Type Department Care Team (Late st Contact Info) Description 10/12/2019 Transcribed Document [facility] Family Medicine [facility] [place] [address] ProviderAkash MD [address] [place] [address] Social History Tobacco Use Types Packs/Day [...] Akash Vega MD - 10/12/2019 6:20 PM ACTOR UNDERSTUDY Nursing Discharge Summary Entered On: 10/12/2019 18:22 [...] - 10/12/2019 18:20 EST Electronically signed by [facility], [facility] Conversion Aprn Cerner at 03/07/2023 1:46 PM CDT documented in this encounter Plan of Treatment Upcoming Encounters Date Type Department Care Team (Late st Contact Info) Description 09/07/2025 10:45 AM EDT Office Visit [facility] Electrophysiology [address] [place] [address] Adrienne Dunn MD [address] [place] [address] [address] [place] [phone] documented as of this encounter Visit Diagnoses Not on filedocumented in this encounter Care Teams Utility Worker Woolen Mill Relationship Specialty Start Date End Date Niranjan Mccarty MD [address] [place] [address] PCP - General Adolescent Medicine 10/15/23 documented as of this encounter
--- OUTSIDE RECORDS SUMMARY | 2025-07-03 23:41 | XMS_ITS | Encounter Summary ---
Author Organization [employer] ([place], [place], [place], [place]) Address [address] [place] [address] Care Team Providers Care Brick Wheeler Name Role Phone Niranjan Mccarty MD Primary Care Provider [phone] Encounter Details Date Type Department Care Team (Late st Contact Info) Description 10/11/2019 Transcribed Document [facility] [facility] [place] [address] ProviderAkash MD [address] [place] [address] Social History Tobacco Use Types Packs/Day Years Used Date Smoking Tobacco: Never Assessed Comments Unknown Sex and Gender Information Value Date Recorded Sex Assigned at Not on file Legal Sex Female 1:32 PM CDT Gender Identity Not on file Sexual Orientation Not on file documented as of this encounter Miscellaneous Notes * Cerner Conversion Note - Historical ProviderMD - 10/11/2019 12:11 PM TEACHER COUNSELOR Attempt to Treat, PT Entered On: 10/11/2019 [...] 10/11/2019 12:11 EST Electronically signed by Cecy [facility] Conversion Writing Tutor Cerner at 03/07/2023 1:24 PM CDT documented in this encounter Plan of Treatment Upcoming Encounters Date Type Department Care Team (Late st Contact Info) Description 09/07/2025 10:45 AM EDT Office Visit [facility] Electrophysiology [address] [place] [address] Adrienne Dunn MD [address] [facility] [address] [place], [place] [phone] documented as of this encounter Visit Diagnoses Not on filedocumented in this encounter Care Teams Brick Wheeler Relationship Specialty Start Date End Date Niranjan Mccarty MD [address] [place] [address] PCP - General Adolescent Medicine 10/15/23 documented as of this encounter
--- OUTSIDE RECORDS SUMMARY | 2025-07-03 23:41 | XMS_ITS | Encounter Summary ---
Author Organization [employer] ([place], [place], [place], [place]) Address [address] [place] [address] Care Team Providers Care Barrel Roller Name Role Phone Niranjan Mccarty MD Primary Care Provider [phone] Encounter Details Date Type Department Care Team (Late st Contact Info) Description 10/12/2019 Transcribed Document [facility] Cardiology [address] [place] [address] Constantine Galvan MD [address] [place] [address] [address] [place] [address] Social History Tobacco Use Types Packs/Day Years [...] Normal study. 2. Ejection fraction is 60%. /[id number] MD POLINA Carvalho/AQ / POLINA / SIMAL /[id number] documented in this encounter Plan of Treatment Upcoming Encounters Date Type Department Care Team (Late st Contact Info) Description 09/07/2025 10:45 AM EDT Office Visit [facility] Electrophysiology [address] [place], [place] [phone] Adrienne Dunn MD [address] [place] [address] [address] [place] [address] documented as of this encounter Visit Diagnoses Not on filedocumented in this encounter Care Teams Barrel Roller Relationship Specialty Start Date End Date Niranjan Mccarty MD [address] [place] [address] PCP - General Adolescent Medicine 10/15/23 documented as of this encounter
--- OUTSIDE RECORDS SUMMARY | 2025-07-03 23:41 | XMS_ITS | Encounter Summary ---
Author Organization [employer] ([place], [place], [place], [place]) Address [address] [place] [address] Care Team Providers Care Business Technology Professor Name Role Phone Niranjan Mccarty MD Primary Care Provider [phone] Encounter Details Date Type Department Care Team (Late st Contact Info) Description 10/11/2019 Transcribed Document [facility] [place] [address] [place] [address] ProviderAkash MD [address] [place], [place] [id number] Social History Tobacco Use Types Packs/Day Years Used Date Smoking Tobacco: Never Assessed Comments Unknown Sex and Gender Information Value Date Recorded Sex Assigned at Not on file Legal Sex Female 1:32 PM CDT Gender Identity Not on file Sexual Orientation Not on file documented as of this encounter Miscellaneous Notes * Cerner Conversion Note - Akash Vega MD - 10/11/2019 9:00 AM MANUAL MACHINIST Pain Assessment Entered On: 10/11/2019 16:45 EST [...] EDT Office Visit [facility] Electrophysiology [address] [place] [address] Adrienne Dunn MD [address] [place] [address] [address] [place] [address] documented as of this encounter Visit Diagnoses Not on filedocumented in this encounter Care Teams Business Technology Professor Relationship Specialty Start Date End Date Niranjan Mccarty MD [address] [place] [address] PCP - General Adolescent Medicine 10/15/23 documented as of this encounter
--- OUTSIDE RECORDS SUMMARY | 2025-07-03 23:41 | XMS_ITS | Encounter Summary ---
Author Organization [employer] ([place], [place], [place], [place]) Address [address] [place] [address] Care Team Providers Care Chemical Operator Name Role Phone Niranjan Mccarty MD Primary Care Provider [phone] Encounter Details Date Type Department Care Team (Late st Contact Info) Description 10/10/2019 Transcribed Document [facility] [place] Medicine [address] [place] [address] ProviderAkash MD [address] [place], [place] [phone] Social History Tobacco Use Types Packs/Day Years Used Date Smoking Tobacco: Never Assessed Comments Unknown Sex and Gender Information Value Date Recorded Sex Assigned at Not on file Legal Sex Female 1:32 PM CDT Gender Identity Not on file Sexual Orientation Not on file documented as of this encounter Miscellaneous Notes * Cerner Conversion Note - Akash ProviderMD - 10/10/2019 9:00 AM FACILITIES MECHANICAL DESIGN ENGINEER Pain Assessment Entered On: 10/10/2019 12:45 EST [...] Description 09/07/2025 10:45 AM EDT Office Visit [facility] Electrophysiology [address] [place] [address] Adrienne Dunn MD [address] [place] [address] [address] [place] [address] documented as of this encounter Visit Diagnoses Not on filedocumented in this encounter Care Teams Chemical Operator Relationship Specialty Start Date End Date Niranjan Mccarty MD [address] [place] [address] PCP - General Adolescent Medicine 10/15/23 documented as of this encounter
--- OUTSIDE RECORDS SUMMARY | 2025-07-03 23:41 | XMS_ITS | Encounter Summary ---
Author Organization [employer] ([place], [place], [place], [place]) Address [address] [place] [address] Care Team Providers Care Job Service Consultant Name Role Phone Niranjan Mccarty MD Primary Care Provider [phone] Encounter Details Date Type Department Care Team (Late st Contact Info) Description 10/12/2019 Transcribed Document [facility] [place] [facility] [place] [place] [address] ProviderAkash MD [address] [place], [place] [phone] Social History Tobacco Use Types Packs/Day Years Used Date Smoking Tobacco: Never Assessed Comments Unknown Sex and Gender Information Value Date Recorded Sex Assigned at Not on file Legal Sex Female 1:32 PM CDT Gender Identity Not on file Sexual Orientation Not on file documented as of this encounter Miscellaneous Notes * Cerner Conversion Note - Akash Vega MD - 10/12/2019 9:00 AM FIRE LIEUTENANT Pain Assessment Entered On: 10/12/2019 11:21 EST [...] form. Electronically signed by Sherri Sam Conversion Pole Peeling Machine Operator Helper Cerner at 03/07/2023 1:24 PM CDT documented in this encounter Plan of Treatment Upcoming Encounters Date Type Department Care Team (Late st Contact Info) Description 09/07/2025 10:45 AM EDT Office Visit [address] [address] Adrienne Dunn MD [address] [place] [address] [address] [place] [phone] documented as of this encounter Visit Diagnoses Not on filedocumented in this encounter Care Teams Job Service Consultant Relationship Specialty Start Date End Date Niranjan Mccarty MD [address] [place] [address] PCP - General Adolescent Medicine 10/15/23 documented as of this encounter
--- OUTSIDE RECORDS SUMMARY | 2025-07-03 23:41 | XMS_ITS | Encounter Summary ---
Author Organization [employer] ([place], [place], [place], [place]) Address [address] [place] [address] Care Team Providers Care Ambulance Paramedic Name Role Phone Niranjan Mccarty MD Primary Care Provider [phone] Encounter Details Date Type Department Care Team (Late st Contact Info) Description 10/09/2019 Transcribed Document [facility] [place] [address] ProviderAkash MD [address] [place] [address] Social History Tobacco Use Types Packs/Day [...] Akash Vega MD - 10/09/2019 9:37 PM SUPERINTENDENT WATER AND SEWER SYSTEMS Pain Assessment Entered On: 10/09/2019 23:44 EST [...] 10:45 AM EDT Office Visit [facility] Electrophysiology [address] [place] [address] Adrienne Dunn MD 14[address] [facility] [address] [place], [place] [phone] documented as of this encounter Visit Diagnoses Not on filedocumented in this encounter Care Teams Ambulance Paramedic Relationship Specialty Start Date End Date Niranjan Mccarty MD [address] [place] [address] PCP - General Adolescent Medicine 10/15/23 documented as of this encounter
--- OUTSIDE RECORDS SUMMARY | 2025-07-03 23:41 | XMS_ITS | Encounter Summary ---
Author Organization [employer] ([place], [place], [place], [place]) Address [address] [place] [address] Care Team Providers Care Quick Technician Name Role Phone Niranjan Mccarty MD Primary Care Provider [phone] Encounter Details Date Type Department Care Team (Late st Contact Info) Description 10/12/2019 Transcribed Document [facility] [place] [facility] [place] [address] ProviderAkash MD [address] [place] [phone] Social History Tobacco Use Types Packs/Day Years Used Date Smoking Tobacco: Never Assessed Comments Unknown Sex and Gender Information Value Date Recorded Sex Assigned at Not on file Legal Sex Female 1:32 PM CDT Gender Identity Not on file Sexual Orientation Not on file documented as of this encounter Miscellaneous Notes * Cerner Conversion Note - Akash Vega MD - 10/12/2019 8:49 AM MOLD INSERT CHANGER Patient: TRAN PEGUERO Age: 83 years Sex: [...] AM EDT Office Visit [facility] Electrophysiology [address] [place] [address] Adrienne Dunn MD [address] [facility] [address] [place] [address] documented as of this encounter Visit Diagnoses Not on filedocumented in this encounter Care Teams Quick Technician Relationship Specialty Start Date End Date Niranjan Mccarty MD [address] [place] [address] PCP - General Adolescent Medicine 10/15/23 documented as of this encounter
--- OUTSIDE RECORDS SUMMARY | 2025-07-03 23:41 | XMS_ITS | Encounter Summary ---
Author Organization [employer] ([place], [place], [place], [place]) Address [address] [place] [address] Care Team Providers Care Permit Technician Name Role Phone Niranjan Mccarty MD Primary Care Provider [phone] Encounter Details Date Type Department Care Team (Late st Contact Info) Description 10/09/2019 Transcribed Document [facility] [place] [facility] [place] [address] ProviderAkash MD [address] [place] [address] Social History Tobacco Use Types Packs/Day [...] Akash Vega MD - 10/09/2019 9:38 PM PROFESSOR OF SOCIOLOGY Education-Wound Care Entered On: 10/09/2019 23:43 EST Performed On: 10/09/2019 21:38 EST by MEKA MANSFIELD RN Teaching/Learning Assessment Barriers To Learning : None evident Individuals Taught : Patient Readiness to Learn : Cooperative Learning Style Preferences Patient : Verbal explanation Learning Style Preferences Family : Verbal explanation MEKA MANSFIELD RN - 10/09/2019 23:43 EST Electronically signed by Cecy [facility] Conversion Kindergarten Prep Teacher Cerner at 03/07/2023 1:41 PM CDT documented in this encounter Plan of Treatment Upcoming Encounters Date Type Department Care Team (Late st Contact Info) Description 09/07/2025 10:45 AM EDT Office Visit [facility] Electrophysiology [address] [place] [phone] Adrienne Dunn MD [address] [facility] [address] [place], [place] [phone] documented as of this encounter Visit Diagnoses Not on filedocumented in this encounter Care Teams Permit Technician Relationship Specialty Start Date End Date Niranjan Mccarty MD [address] [place] [address] PCP - General Adolescent Medicine 10/15/23 documented as of this encounter
--- OUTSIDE RECORDS SUMMARY | 2025-07-03 23:41 | XMS_ITS | Encounter Summary ---
Author Organization [employer] ([place], [place], [place], [place]) Address [address] [place] [address] Care Team Providers Care Snaker Driving Horses Name Role Phone Niranjan Mccarty MD Primary Care Provider [phone] Encounter Details Date Type Department Care Team (Late st Contact Info) Description 10/11/2019 Transcribed Document [facility] [place] [facility] [place] [address] ProviderAkash MD [address] [place] [address] Social History Tobacco Use Types Packs/Day Years Used Date Smoking Tobacco: Never Assessed Comments Unknown Sex and Gender Information Value Date Recorded Sex Assigned at Not on file Legal Sex Female 1:32 PM CDT Gender Identity Not on file Sexual Orientation Not on file documented as of this encounter Miscellaneous Notes * Cerner Conversion Note - Akash ProviderMD - 10/11/2019 2:00 AM MARKETING PROJECT SPECIALIST Chronometer Adjuster Details Entered On: 10/11/2019 2:03 EST Performed [...] 10/11/2019 2:02 EST Electronically signed by Cecy [facility] Conversion Microbiology Lab Technician Cerner at 03/07/2023 1:39 PM CDT documented in this encounter Plan of Treatment Upcoming Encounters Date Type Department Care Team (Late st Contact Info) Description 09/07/2025 10:45 AM EDT Office Visit [facility] Electrophysiology [address] [place] [phone] Adrienne Dunn MD [address]01 [facility] [address] [place] [address] documented as of this encounter Visit Diagnoses Not on filedocumented in this encounter Care Teams Snaker Driving Horses Relationship Specialty Start Date End Date Niranjan Mccarty MD [address] [place] [address] PCP - General Adolescent Medicine 10/15/23 documented as of this encounter
--- OUTSIDE RECORDS SUMMARY | 2025-07-03 23:41 | XMS_ITS | Encounter Summary ---
Author Organization [employer] ([place], [place], [place], [place]) Address [address] [place] [address] Care Team Providers Care Personal Computer Network Analyst Name Role Phone Niranjan Mccarty MD Primary Care Provider [phone] Encounter Details Date Type Department Care Team (Late st Contact Info) Description 10/12/2019 Transcribed Document [facility] [place] Medicine [address] [place] [address] ProviderAkash MD [address] [place], [place] [phone] Social History Tobacco Use Types Packs/Day Years Used Date Smoking Tobacco: Never Assessed Comments Unknown Sex and Gender Information Value Date Recorded Sex Assigned at Not on file Legal Sex Female 1:32 PM CDT Gender Identity Not on file Sexual Orientation Not on file documented as of this encounter Miscellaneous Notes * Cerner Conversion Note - Akash Vega MD - 10/12/2019 9:39 AM DIETARY TECH Stroke/Warfarin Instructions Entered On: 10/12/2019 9:39 EST [...] 10/12/2019 9:39 EST Electronically signed by [facility] Conversion Metal Finish Inspector Cerner at 03/07/2023 1:37 PM CDT documented in this encounter Plan of Treatment Upcoming Encounters Date Type Department Care Team (Late st Contact Info) Description 09/07/2025 10:45 AM EDT Office Visit [facility] Electrophysiology [address] [place] [address] Adrienne Dunn MD [address] [place] [address] [address] [place] [phone] documented as of this encounter Visit Diagnoses Not on filedocumented in this encounter Care Teams Personal Computer Network Analyst Relationship Specialty Start Date End Date Niranjan Mccarty MD [address] [place] [address] PCP - General Adolescent Medicine 10/15/23 documented as of this encounter
--- OUTSIDE RECORDS SUMMARY | 2025-07-03 23:41 | XMS_ITS | Encounter Summary ---
Author Organization [employer] ([place], [place], [place], [place]) Address [address] [place] [address] Care Team Providers Care Purification Director Name Role Phone Niranjan Mccarty MD Primary Care Provider [phone] Encounter Details Date Type Department Care Team (Late st Contact Info) Description 10/11/2019 Transcribed Document [facility] [place] [facility] [place] [address] ProviderAkash MD [address] [place] [phone] Social History Tobacco Use Types Packs/Day Years Used Date Smoking Tobacco: Never Assessed Comments Unknown Sex and Gender Information Value Date Recorded Sex Assigned at Not on file Legal Sex Female 1:32 PM CDT Gender Identity Not on file Sexual Orientation Not on file documented as of this encounter Miscellaneous Notes * Cerner Conversion Note - Akash Vega MD - 10/11/2019 8:37 AM REAL ESTATE OFFICER Patient: TRAN PEGUERO Age: 83 Years [...] 10/11/2019 04:25 EST Electronically signed by Cecy [facility] Conversion Vendor Relationship Manager Cerner at 03/07/2023 1:25 PM CDT documented in this encounter Plan of Treatment Upcoming Encounters Date Type Department Care Team (Late st Contact Info) Description 09/07/2025 10:45 AM EDT Office Visit [facility] Electrophysiology [address] [place] [address] Adrienne Dunn MD [address] [place] [address] [address] [place] [address] documented as of this encounter Visit Diagnoses Not on filedocumented in this encounter Care Teams Purification Director Relationship Specialty Start Date End Date Niranjan Mccarty MD [address] [place] [address] PCP - General Adolescent Medicine 10/15/23 documented as of this encounter
--- OUTSIDE RECORDS SUMMARY | 2025-07-03 23:41 | XMS_ITS | Encounter Summary ---
Author Organization [employer] ([place], [place], [place], [place]) Address [address] [place] [address] Care Team Providers Care Stockroom Supervisor Name Role Phone Niranjan Mccarty MD Primary Care Provider [phone] Encounter Details Date Type Department Care Team (Late st Contact Info) Description 10/11/2019 Transcribed Document [facility] [place] [address] [place] [address] ProviderAkash MD [address] [place] [address] Social History Tobacco Use Types [...] - Historical ProviderMD - 10/11/2019 5:00 AM PRINCIPAL MILITARY ANALYST Chart Check - Review Order Profile Entered On: 10/11/2019 4:17 EST Performed On: 10/11/2019 5:00 EST by MEKA MANSFIELD RN Chart Check All Active Orders Reviewed : Yes MEKA MANSFIELD RN - 10/11/2019 4:17 EST documented in this encounter Plan of Treatment Upcoming Encounters Date Type Department Care Team (Late st Contact Info) Description 09/07/2025 10:45 AM EDT Office Visit [address] [address] Adrienne Dunn MD [address] [facility] [address] [place], [place] [phone] documented as of this encounter Visit Diagnoses Not on filedocumented in this encounter Care Teams Stockroom Supervisor Relationship Specialty Start Date End Date Niranjan Mccarty MD [address] [place] [address] PCP - General Adolescent Medicine 10/15/23 documented as of this encounter
--- OUTSIDE RECORDS SUMMARY | 2025-07-03 23:41 | XMS_ITS | Encounter Summary ---
Author Organization [employer] ([place], [place], [place], [place]) Address [address] [place] [address] Care Team Providers Care Shredder Picker Name Role Phone Niranjan Mccarty MD Primary Care Provider + [phone] Encounter Details Date Type Department Care Team (Late st Contact Info) Description 10/12/2019 Transcribed Document [facility] [place] Medicine [facility] [place] [address] ProviderAkash MD [address] [place], [place] [address] Social History Tobacco Use Types Packs/Day Years Used Date Smoking Tobacco: Never Assessed Comments Unknown Sex and Gender Information Value Date Recorded Sex Assigned at Not on file Legal Sex Female 1:32 PM CDT Gender Identity Not on file Sexual Orientation Not on file documented as of this encounter Miscellaneous Notes * Cerner Conversion Note - Akash Vega MD - 10/12/2019 9:40 AM COMPUTER TAPE LIBRARIAN Patient Education Materials Follows: Nonspecific Chest Pain [...] you start to feel better. ??? Take wuog-wlh-cwfuigx and prescription medicines only as told by [...] 04/21/2009 Document Revised: 07/28/2017 Document Reviewed: 07/28/2017 ElseSSEV Interactive Patient Education ? 2019 [employer] documented in this encounter Plan of Treatment Upcoming Encounters Date Type Department Care Team (Late st Contact Info) Description 09/07/2025 10:45 AM EDT Office Visit [facility] Electrophysiology [address] [place], [place] [phone] Adrienne Dunn MD [address] [place] [address] [address] [place] [address] documented as of this encounter Visit Diagnoses Not on filedocumented in this encounter Care Teams Shredder Picker Relationship Specialty Start Date End Date Niranjan Mccarty MD [address] [place] [address] PCP - General Adolescent Medicine 10/15/23 documented as of this encounter
--- OUTSIDE RECORDS SUMMARY | 2025-07-03 23:41 | XMS_ITS | Encounter Summary ---
Author Organization [employer] ([place], [place], [place], [place]) Address [address] [place] [address] Care Team Providers Care Site Promotion Agent Name Role Phone Niranjan Mccarty MD Primary Care Provider [phone] Encounter Details Date Type Department Care Team (Late st Contact Info) Description 10/11/2019 Transcribed Document [facility] [place] [facility] [place] [address] ProviderAkash MD [address] [place], [place] [address] Social History Tobacco Use Types Packs/Day Years Used Date Smoking Tobacco: Never Assessed Comments Unknown Sex and Gender Information Value Date Recorded Sex Assigned at Not on file Legal Sex Female 1:32 PM CDT Gender Identity Not on file Sexual Orientation Not on file documented as of this encounter Miscellaneous Notes * Cerner Conversion Note - Akash Vega MD - 10/11/2019 3:28 PM ORDER PROCESSOR Initial Discharge Planning Entered On: 10/11/2019 15:33 EST Performed On: 10/11/2019 15:28 EST by MEAGHAN DIXON Rn-Cellular Phone Repairer Initial Assessment I Previously Documented Living Environment : No qualifying data available. Living Situation : Home Patient Lives With : Spouse Emergency Contact #1 : Sandee Emergency Contact #1 Emergency Contact #1 Relationship : daughter Emergency Contact #2 : Dana Emergency Contact #2 Emergency Contact #2 Relationship : sister in law Medical Durable Power of Warehouse Shipping Clerk Name : Yes Legal Guardian : No MEAGHAN DIXON Rn-Cellular Phone Repairer - 10/11/2019 15:28 EST Initial Assessment II Sensory and Motor Deficits : None Deficit Description : however, says she has a transport chair. MEAGHAN DIXON Rn-Cellular Phone Repairer - 10/11/2019 15:28 EST Discharge Needs I Anticipated Discharge Date : 10/14/2019 EST Current Home Treatment/Equipment : Current Home Treatment/Equipment No qualifying data available. Post Acute/Home Treatments : None Documentation Status Complete : Yes MEAGHAN DIXON Rn-Cellular Phone Repairer - 10/11/2019 15:28 EST Discharge Needs II Professional Skilled Services : Professional Skilled Services No qualifying data available. Needs Assistance with Transportation : Maybe Discharge Options Discussed with Patient : Home Health, Outpatient services MEAGHAN DIXON Rn-Cellular Phone Repairer - 10/11/2019 15:28 EST Narrative Note Narrative Note : RRS: Low 34 RN casde school business manager met with pt at the bedside. [...] portable oxygen tank at dc. MEAGHAN DIXON Rn-Cellular Phone Repairer - 10/11/2019 15:28 EST documented in this encounter Plan of Treatment Upcoming Encounters Date Type Department Care Team (Late st Contact Info) Description 09/07/2025 10:45 AM EDT Office Visit [facility] Electrophysiology [address] [place] [address] Adrienne Dunn MD [address] [facility] [address] [place] [address] documented as of this encounter Visit Diagnoses Not on filedocumented in this encounter Care Teams Site Promotion Agent Relationship Specialty Start Date End Date Niranjan Mccarty MD [address] [place] [address] PCP - General Adolescent Medicine 10/15/23 documented as of this encounter
--- OUTSIDE RECORDS SUMMARY | 2025-07-03 23:41 | XMS_ITS | Encounter Summary ---
Author Organization [employer] ([place], [place], [place], [place]) Address [address] [place] [address] Care Team Providers Care Manager Clinic Name Role Phone Niranjan Mccarty MD Primary Care Provider [phone] Encounter Details Date Type Department Care Team (Late st Contact Info) Description 10/09/2019 Transcribed Document [facility] [place] Family Medicine Replaced by [facility] [place] [address] ProviderAkash MD [address] [place] [address] Social History Tobacco Use Types Packs/Day Years Used Date Smoking Tobacco: Never Assessed Comments Unknown Sex and Gender Information Value Date Recorded Sex Assigned at Not on file Legal Sex Female 1:32 PM CDT Gender Identity Not on file Sexual Orientation Not on file documented as of this encounter Miscellaneous Notes * Cerner Conversion Note - Akash Vega MD - 10/09/2019 9:22 PM PET RESORT CONCIERGE Patient: TRAN PEGUERO Age: 83 Years Sex: Female : 1935 Chief Complaint Chest pain Primary Care Provider NIRANJAN MORRIS MD-[facility] History of Present Illness Patient is an 83-year-old female with past medical history of hypertension, hyperlipidemia, atrial fibrillation, SSS status post pacemaker placement, chronic anticoagulation with Coumadin, COPD on home oxygen, gastric ulcer who presented to [facility] ER today with complaints of chest pain. [...] fever or chills. Lab workup at [facility] showed WBC count 5.6, hemoglobin 11.7, platelets [...] significant chest pain. [facility] by her sheet rock taper here. Review of Systems Pertinent positives and [...] 09/07/2025 10:45 AM EDT Office Visit [address] [address] Adrienne Dunn MD [address] [facility] [address] [place], [place] [phone] documented as of this encounter Visit Diagnoses Not on filedocumented in this encounter Care Teams Manager Clinic Relationship Specialty Start Date End Date Niranjan Mccarty MD [address] [place] [address] PCP - General Adolescent Medicine 10/15/23 documented as of this encounter
--- OUTSIDE RECORDS SUMMARY | 2025-07-03 23:41 | XMS_ITS | Encounter Summary ---
Author Organization [employer] ([place], [place], [place], [place]) Address [address] [place] [address] Care Team Providers Care Slitting Machine Feeder Name Role Phone Niranjan Mccarty MD Primary Care Provider [phone] Encounter Details Date Type Department Care Team (Late st Contact Info) Description 10/11/2019 Transcribed Document [facility] [place] [address] ProviderAkash MD [address] [place] [address] Social History Tobacco Use Types Packs/Day [...] Akash Vega MD - 10/11/2019 9:00 PM OPERATIONS LEAD Pain Assessment Entered On: 10/12/2019 6:31 EST Performed On: 10/11/2019 23:11 EST by MAXX BARRERA, RN Intervention Information: traMADol Performed by MAXX BARRERA RN on 10/11/2019 22:11:00 EST traMADol,50mg Oral Pain Assessment Pain Assessment : Follow-up assessment Pain Scale Goal : 4 Pain Improved by Intervention : Yes MAXX BARRERA, RN - 10/12/2019 6:31 EST Electronically signed by [facility] Conversion Production Machinist Cerner at 03/07/2023 1:48 PM CDT documented in this encounter Plan of Treatment Upcoming Encounters Date Type Department Care Team (Late st Contact Info) Description 09/07/2025 10:45 AM EDT Office Visit [facility] Electrophysiology [address] [place] [address] Adrienne Dunn MD [address] [facility] [address] [place], [place] [phone] documented as of this encounter Visit Diagnoses Not on filedocumented in this encounter Care Teams Slitting Machine Feeder Relationship Specialty Start Date End Date Niranjan Mccarty MD [address] [place] [address] PCP - General Adolescent Medicine 10/15/23 documented as of this encounter
--- OUTSIDE RECORDS SUMMARY | 2025-07-03 23:41 | XMS_ITS | Encounter Summary ---
Author Organization [employer] ([place], [place], [place], [place]) Address [address] [place] [address] Care Team Providers Care Mobile Security Architect Name Role Phone Niranjan Mccarty MD Primary Care Provider [phone] Encounter Details Date Type Department Care Team (Late st Contact Info) Description 10/11/2019 Transcribed Document [facility] [place] [facility] [place] [address] ProviderAkash MD [address] [place] [address] Social History Tobacco Use Types Packs/Day Years Used Date Smoking Tobacco: Never Assessed Comments Unknown Sex and Gender Information Value Date Recorded Sex Assigned at Not on file Legal Sex Female 1:32 PM CDT Gender Identity Not on file Sexual Orientation Not on file documented as of this encounter Miscellaneous Notes * Cerner Conversion Note - Akash Vega MD - 10/11/2019 9:21 AM MARKETING DEVELOPER Patient: TRAN PEGUERO Age: 83 years Sex: Female : 1935 Associated Diagnoses: None Author: BC LENZ, Student-Pharmacist Coumadin Note HPI: PM is a 83yo F who presents with chest pain. PMH: HTN, HLD, AFib (on Coumadin), SSS s/p pacemaker placement, COPD, and gastric ulcers. Indication: AFib Consulting MD: Imedla Perez Goal INR: 2-3 Home Dose of [...] Visit [facility] Electrophysiology [address] [place] [address] Adrienne Dunn MD [address] [place] [address] [address] [place] [address] documented as of this encounter Visit Diagnoses Not on filedocumented in this encounter Care Teams Mobile Security Architect Relationship Specialty Start Date End Date Niranjan Mccarty MD [address] [place] [address] PCP - General Adolescent Medicine 10/15/23 documented as of this encounter
--- OUTSIDE RECORDS SUMMARY | 2025-07-03 23:41 | XMS_ITS | Encounter Summary ---
Author Organization [employer] ([place], [place], [place], [place]) Address [address] [place] [address] Care Team Providers Care Scissors Grinder Name Role Phone Niranjan Mccarty MD Primary Care Provider [phone] Encounter Details Date Type Department Care Team (Late st Contact Info) Description 10/09/2019 Transcribed Document [facility] [place] [address] ProviderAkash MD [address] [place] [address] Social History Tobacco Use Types Packs/Day Years Used Date Smoking Tobacco: Never Assessed Comments Unknown Sex and Gender Information Value Date Recorded Sex Assigned at Not on file Legal Sex Female 1:32 PM CDT Gender Identity Not on file Sexual Orientation Not on file documented as of this encounter Miscellaneous Notes * Cerner Conversion Note - Historical ProviderMD - 10/09/2019 9:18 PM FULL STACK SOFTWARE ENGINEER Education-(VTE) / (DVT) Entered On: 10/09/2019 23:43 EST Performed On: 10/09/2019 21:18 EST by MEKA MANSFIELD RN Teaching/Learning Assessment Barriers To Learning : None evident Individuals Taught : Patient Readiness to Learn : Cooperative Learning Style Preferences Patient : Verbal explanation Learning Style Preferences Family : Verbal explanation MEKA MANSFIELD RN - 10/09/2019 23:43 EST Electronically signed by [facility] Conversion Sow Farm Manager Cerner at 03/07/2023 1:26 PM CDT documented in this encounter Plan of Treatment Upcoming Encounters Date Type Department Care Team (Late st Contact Info) Description 09/07/2025 10:45 AM EDT Office Visit [facility] Electrophysiology [address] [place] [phone] Adrienne Dunn MD [address] [facility] [address] [place] [address] documented as of this encounter Visit Diagnoses Not on filedocumented in this encounter Care Teams Scissors Grinder Relationship Specialty Start Date End Date Niranjan Mccarty MD [address] [place] [address] PCP - General Adolescent Medicine 10/15/23 documented as of this encounter
--- OUTSIDE RECORDS SUMMARY | 2025-07-03 23:41 | XMS_ITS | Encounter Summary ---
Author Organization [employer] ([place], [place], [place], [place]) Address [address] [place] [address] Care Team Providers Care Activated Sludge Operator Name Role Phone Niranjan Mccarty MD Primary Care Provider [phone] Encounter Details Date Type Department Care Team (Late st Contact Info) Description 10/10/2019 Transcribed Document [facility] [place] [facility] [place] [address] [place] [address] ProviderAkash MD [address] [place], [place] [phone] Social History Tobacco Use Types Packs/Day Years Used Date Smoking Tobacco: Never Assessed Comments Unknown Sex and Gender Information Value Date Recorded Sex Assigned at Not on file Legal Sex Female 1:32 PM CDT Gender Identity Not on file Sexual Orientation Not on file documented as of this encounter Miscellaneous Notes * Cerner Conversion Note - Akash Vega MD - 10/10/2019 10:57 AM MANAGER MARKETING SALES Height and Weight, Routine Entered On: 10/11/2019 4:17 EST Performed On: 10/10/2019 10:57 EST by MEKA MANSFIELD RN Height and Weight, Routine Routine Weight Source : Standing scale Routine Weight Entry Format : [place] Routine Weight, Pounds : 141 lb Routine Weight, Ounces : 7 oz Routine Weight Calculation : 64.29 kg Height Source : Stated Height Entry Format : [place] Height, Feet : 5 ft Height, Inches [...] EDT Office Visit [facility] Electrophysiology [address] [place] [address] Adrienne Dunn MD [address] [place] [address] [address] [place] [phone] documented as of this encounter Visit Diagnoses Not on filedocumented in this encounter Care Teams Activated Sludge Operator Relationship Specialty Start Date End Date Niranjan Mccarty MD [address] [place] [address] PCP - General Adolescent Medicine 10/15/23 documented as of this encounter
--- OUTSIDE RECORDS SUMMARY | 2025-07-03 23:41 | XMS_ITS | Encounter Summary ---
Author Organization [employer] ([place], [place], [place], [place]) Address [address] [place] [address] Care Team Providers Care Foreign Banknote Teller Trader Name Role Phone Niranjan Mccarty MD Primary Care Provider [phone] Encounter Details Date Type Department Care Team (Late st Contact Info) Description 10/11/2019 Transcribed Document [facility] Cardiology [address] [place] [address] Constantine Galvan MD [address] [place] [address] [address] [place] [id number] Social History Tobacco Use Types Packs/Day Years [...] 1. Normal study. 2. Ejection fraction 60%. /[id number] Constantine Galvan MD NMF/AQ / POLINA / MODL /[id number] documented in this encounter Plan of Treatment Upcoming Encounters Date Type Department Care Team (Late st Contact Info) Description 09/07/2025 10:45 AM EDT Office Visit [facility] Electrophysiology [address] [place], [place] [phone] Adrienne Dunn MD [address] [place] [address] [address] [place] [phone] documented as of this encounter Visit Diagnoses Not on filedocumented in this encounter Care Teams Foreign Banknote Teller Trader Relationship Specialty Start Date End Date Niranjan Mccarty MD [address] [place] [address] PCP - General Adolescent Medicine 10/15/23 documented as of this encounter
--- OUTSIDE RECORDS SUMMARY | 2025-07-03 23:41 | XMS_ITS | Encounter Summary ---
Author Organization [employer] ([place], [place], [place], [place]) Address [address] [place] [address] Care Team Providers Care Boiler Welder Name Role Phone Niranjan Mccarty MD Primary Care Provider [phone] Encounter Details Date Type Department Care Team (Late st Contact Info) Description 10/12/2019 Transcribed Document [facility] [place] [facility] [place] [address] ProviderAkash MD [address] [place] [address] Social History Tobacco Use Types Packs/Day [...] Akash Vega MD - 10/12/2019 5:15 PM BOTANY PROFESSOR [facility] [place], [place] [phone] TRAN PEGUERO KELLY :1935 Visit Time:10/09/2019 Your [...] Call for follow up appointment Where: [address] [facility] [address] [place] [address]- Follow Up with VIRY ESTRADA MD-CAR When Within 1 to 2 weeks Comments Call for follow up appointment Where: [address] [facility] [address] [place] [address]- Follow Up with NIRANAJN MORRIS MD-[facility] When Within 2 to 4 weeks Where: [address] Warfarin Instructions Indication for Warfarin Anticoagulation: [...] you start to feel better. ??? Take wzsc-jlf-mqjmiob and prescription medicines only as told by [...] 04/21/2009 Document Revised: 07/28/2017 Document Reviewed: 07/28/2017 [employer] Interactive Patient Education ?? 2019 [employer]. Emergency Awareness and Preventative Care STROKE is [...] Assistance with quitting is available by contacting 2-012-WYNQ-NOW. This is a free resource providing counseling, [...] range between ( 0.0 and 7.0 ) Foster #: 0.75 K/uL -- Normal range between ( 0.16 and 1.00 ) Eos #: 0.20 x10(3)/uL -- Normal range between ( 0.00 and 0.80 ) Foster %: 10.3 % -- Normal range between [...] was given the opportunity to ask questions. Patient/Spanisher Name: Patient/Spanisher Signature: Relationship to Patient: Clinician/Hospital Spanisher Signature: Date: documented in this encounter Plan of Treatment Upcoming Encounters Date Type Department Care Team (Late st Contact Info) Description 09/07/2025 10:45 AM EDT Office Visit [facility] Electrophysiology [address] [place] [address] Adrienne Dunn MD [address] [facility] [address] [place] [phone] documented as of this encounter Visit Diagnoses Not on filedocumented in this encounter Care Teams Boiler Welder Relationship Specialty Start Date End Date Niranjan Mccarty MD [address] [place] [address] PCP - General Adolescent Medicine 10/15/23 documented as of this encounter
--- OUTSIDE RECORDS SUMMARY | 2025-07-03 23:41 | XMS_ITS | Encounter Summary ---
Author Organization [employer] ([place], [place], [place], [place]) Address [address] [place] [address] Care Team Providers Care Tsa Screener Name Role Phone Niranjan Mccarty MD Primary Care Provider [phone] Encounter Details Date Type Department Care Team (Late st Contact Info) Description 10/12/2019 Transcribed Document [facility] [place] Family [place] [facility] [place] [address] ProviderAkash MD [address] [place] [id number] Social History Tobacco Use Types Packs/Day Years Used Date Smoking Tobacco: Never Assessed Comments Unknown Sex and Gender Information Value Date Recorded Sex Assigned at Not on file Legal Sex Female 1:32 PM CDT Gender Identity Not on file Sexual Orientation Not on file documented as of this encounter Miscellaneous Notes * Cerner Conversion Note - Akash Vega MD - 10/12/2019 3:47 PM RETORT FIRER Final Discharge Planning Entered On: 10/12/2019 15:47 [...] : Yes Discharge To Care Management : Home/Residential/Usp or Self Care -01 CATHREINE LOZANO RN-Care Management - 10/12/2019 15:47 EST Final Narrative Note Final Narrative Note : Pt to be discharged today w/o needs for CM to address, and family transporting CATHERINE LOZANO RN-Care Management - 10/12/2019 15:47 EST Electronically signed by [employer] [employer] Conversion Cleaning Manager Cerner at 03/07/2023 1:55 PM CDT documented in this encounter Plan of Treatment Upcoming Encounters Date Type Department Care Team (Late st Contact Info) Description 09/07/2025 10:45 AM EDT Office Visit [facility] Electrophysiology [address] [place] [address] Adrienne Dunn MD [address] [place] [address] [address] [place] [phone] documented as of this encounter Visit Diagnoses Not on filedocumented in this encounter Care Teams Tsa Screener Relationship Specialty Start Date End Date Niranjan Mccarty MD [address] [place] [address] PCP - General Adolescent Medicine 10/15/23 documented as of this encounter
--- OUTSIDE RECORDS SUMMARY | 2025-07-03 23:41 | XMS_ITS | Encounter Summary ---
Author Organization [employer] ([place], [place], [place], [place]) Address [address] [place] [address] Care Team Providers Care Pediatric Speech Therapist Name Role Phone Niranjan Mccarty MD Primary Care Provider [phone] Encounter Details Date Type Department Care Team (Late st Contact Info) Description 10/11/2019 Transcribed Document [facility] Cardiology [address] [place] [address] [place] [address] [place] [address] [address] [place] [address] Social History Tobacco Use Types Packs/Day Years [...] MD-CAR Basic Information PCP: NIRANJAN MORRIS MD Inspector Clip On Sunglasses: Cole SAMUEL Subjective no chest pain. Health [...] of motion, Normal strength. Integumentary: Warm, Dry, Baudette. Neurologic: Alert, Oriented. Psychiatric: Cooperative, Appropriate mood [...] Office Visit [facility] Electrophysiology [address] [place] [address] Adrienne Dunn MD [address] [facility] [address] [place] [address] documented as of this encounter Visit Diagnoses Not on filedocumented in this encounter Care Teams Pediatric Speech Therapist Relationship Specialty Start Date End Date Niranjan Mccarty MD [address] [place] [address] PCP - General Adolescent Medicine 10/15/23 documented as of this encounter
--- OUTSIDE RECORDS SUMMARY | 2025-07-03 23:41 | XMS_ITS | Encounter Summary ---
Author Organization [employer] ([place], [place], [place], [place]) Address [address] [place] [address] Care Team Providers Care Park Aide Name Role Phone Niranjan Mccarty MD Primary Care Provider [phone] Encounter Details Date Type Department Care Team (Late st Contact Info) Description 10/09/2019 Transcribed Document [facility] [place] [facility] [place] [address] ProviderAkash MD [address] [place] [address] Social History Tobacco Use Types [...] - Akash ProviderMD - 10/09/2019 8:24 PM DYED RAW STOCK BLOWER FEEDER Admission History, Adult Entered On: 10/09/2019 21:47 [...] megha Legal Guardian : No Support Person/Patient Sales And Leasing Agent : Yes Support Person/Pt Rep Name : daughter- sherley MEKA MANSFIELD, PAPITO - 10/09/2019 21:40 EST Maya Garcia RN - 10/12/2019 10:14 EST Support Person/Pt Rep Contact Information : gordon [phone] Want Family/Rep/Phys Notified of Admit : No Emergency Contact #1 : Sandee Emergency Contact #1 Emergency Contact #1 Relationship : daughter Emergency Contact #2 : Dana Emergency Contact #2 Emergency Contact #2 Relationship : sister in law Information Obtained From : Patient Primary Language : Malian Preferred Communication Mode : Verbal Communication Barrier [...] Scale Risk Level : 25-45 Medium Risk Britton Fall Interventions : Adequate lighting, Assistive devices [...] Source : Stated Height Entry Format : [place] Height, Feet : 5 ft(Converted to: 152 cm, 60 Inch) Height, Inches : 5 Inch(Converted to: 0 ft 5 Inch, 12.70 cm) Clinical Height : 165.1 cm Weight Source : Bed scale Weight Entry Format : [place] Clinical Dosing Weight : 65.51 kg Weight, Pounds : 144 lb Weight, Ounces : 2 oz Body Surface Area (BSA) : 1.72 m2 Body Mass Index : 24 kg/m2 [place] Body Weight : 57 kg MEKA MANSFIELD [...] MEKA MANSFIELD RN - 10/09/2019 21:40 EST [place] Suicide Severity Rating Scale (C-SSRS) CSSRS Past [...] 10/09/2019 21:40 EST Electronically signed by Cecy [facility] Conversion Utility Helicopter Repairer Cerner at 03/07/2023 1:48 PM CDT documented in this encounter Plan of Treatment Upcoming Encounters Date Type Department Care Team (Late st Contact Info) Description 09/07/2025 10:45 AM EDT Office Visit [facility] Electrophysiology [address] [place] [address] [place] [address] [place] [address] [address] [place] [address] documented as of this encounter Visit Diagnoses Not on filedocumented in this encounter Care Teams Park Aide Relationship Specialty Start Date End Date Niranjan Mccarty MD [address] [place] [address] PCP - General Adolescent Medicine 10/15/23 documented as of this encounter
--- OUTSIDE RECORDS SUMMARY | 2025-07-03 23:41 | XMS_ITS | Encounter Summary ---
Author Organization [employer] ([place], [place], [place], [place]) Address [address] [place] [address] Care Team Providers Care Delivery Specialist Name Role Phone Niranjan Mccarty MD Primary Care Provider [phone] Encounter Details Date Type Department Care Team (Late st Contact Info) Description 10/11/2019 Transcribed Document [facility] [place] [facility] [place] [address] ProviderAkash MD [address] [place] [address] Social History Tobacco Use Types Packs/Day [...] Akash Vega MD - 10/11/2019 8:57 AM BIAS CUTTER Event Note Entered On: 10/11/2019 8:57 EST [...] Office Visit [facility] Electrophysiology [address] [place] [address] Adrienne Dunn MD [address] [facility] [address] [place] [address] documented as of this encounter Visit Diagnoses Not on filedocumented in this encounter Care Teams Delivery Specialist Relationship Specialty Start Date End Date Niranjan Mccarty MD [address] [place] [address] PCP - General Adolescent Medicine 10/15/23 documented as of this encounter
--- OUTSIDE RECORDS SUMMARY | 2025-07-03 23:41 | XMS_ITS | Encounter Summary ---
Author Organization [employer] ([place], [place], [place], [place]) Address [address] [place] [address] Care Team Providers Care Flyer Repairer Name Role Phone Niranjan Mccarty MD Primary Care Provider [phone] Encounter Details Date Type Department Care Team (Late st Contact Info) Description 10/09/2019 Transcribed Document [facility] [place] [address] [place] [address] ProviderAkash MD [address] [place] [address] Social History Tobacco Use Types [...] Akash Vega MD - 10/09/2019 9:00 PM MORNING NEWS PRODUCER Admission History, Adult Entered On: 10/09/2019 21:02 EST Performed On: 10/09/2019 21:00 EST by MEKA MANSFIELD RN Height and Weight, Clinical Dosing Height Source : Stated Height Entry Format : [place] Height, Feet : 5 ft(Converted to: 152 cm, 60 Inch) Height, Inches : 5 Inch(Converted to: 0 ft 5 Inch, 12.70 cm) Clinical Height : 165.1 cm Weight Source : Bed scale Weight Entry Format : [place] Clinical Dosing Weight : 65.51 kg Weight, Pounds : 144 lb Weight, Ounces : 2 oz Body Surface Area (BSA) : 1.72 m2 Body Mass Index : 24 kg/m2 [place] Body Weight : 57 kg MEKA MANSFIELD RN - 10/09/2019 21:00 EST Infectious Disease History Infectious Disease History : Chicken pox/Shingles, Influenza, Measles, Scarlet fever Active Surveillance Screen Assessment : Pt transferred from SNF, LTC, [facility], or rehab hospital Active Surveillance Screen Positive [...] Visit [facility] Electrophysiology [address] [place] [id number] Adrienne Dunn MD [address] [facility] [address] [place] [address] documented as of this encounter Visit Diagnoses Not on filedocumented in this encounter Care Teams Flyer Repairer Relationship Specialty Start Date End Date Niranjan Mccarty MD [address] [place] [address] PCP - General Adolescent Medicine 10/15/23 documented as of this encounter
--- OUTSIDE RECORDS SUMMARY | 2025-07-03 23:42 | XMS_ITS | Encounter Summary ---
Author Organization [employer] ([place], [place], [place], [place]) Address [address] [place] [address] Care Team Providers Care Last Marker Name Role Phone Niranajn Mccarty MD Primary Care Provider [phone] Encounter Details Date Type Department Care Team (Late st Contact Info) Description 10/10/2019 Transcribed Document [facility] Cardiology [address] [place] [address] [place] [address] [place] [address] [address] [place] [address] Social History Tobacco Use Types Packs/Day Years [...] MD-CAR Basic Information PCP: NIRANJAN MORRIS MD Can Filler: Cole SAMUEL Chief Complaint chest pain History of Present Illness 83 year old female with a history of hypertension, hyperlipidemia, atrial fibrillation, SSS status post pacemaker placement, chronic anticoagulation with Coumadin, COPD. She presented to [facility] ER yesterday with complaints of chest pain. The pain was localized in the left side and radiated into her neck. She became diaphoretic and nauseated. The pain lasted for several minutes but returned later prompting her to seek medical attention. Troponin was negative however, based on her history and symptoms she was transferred to [facility] for evaluation. She is currently chest pain [...] l Past Medical History: Active Atrial fibrillation (96845541) Hyperlipidemia (66002823) Hypertension (53238621) Family History: Non contributory Procedure history: Appendectomy; (99752). cataract surgery. Cholecystectomy; (91298). eye surgery. foot surgery right. hand surgery. [...] of motion, Normal strength. Integumentary: Warm, Dry, [place]. Neurologic: Alert, Oriented. Psychiatric: Cooperative. Review [...] EDT Office Visit [facility] Electrophysiology [address] [place] [address] Adrienne Dunn MD [address] [place] [address] [address] [place] [address] documented as of this encounter Visit Diagnoses Not on filedocumented in this encounter Care Teams Last Marker Relationship Specialty Start Date End Date Niranjan Mccarty MD [address] [place] [address] PCP - General Adolescent Medicine 10/15/23 documented as of this encounter
--- OUTSIDE RECORDS SUMMARY | 2025-07-03 23:43 | XMS_ITS | Encounter Summary ---
Author Organization [employer] ([place], [place], [place], [place]) Address [address] [place] [address] Care Team Providers Care Fill Technician Name Role Phone Niranjan Mccarty MD Primary Care Provider [phone] Encounter Details Date Type Department Care Team (Late st Contact Info) Description 08/23/2021 Transcribed Document [facility] [place] [address] ProviderAkash MD [address] [place], [place] [id number] Social History Tobacco Use Types Packs/Day Years [...] as documented in chart. Surgical history: Appendectomy; (06353). cataract surgery. Cholecystectomy; (55254). eye surgery. foot surgery right. hand surgery. [...] EDT Height Source Stated Height Entry Format [place] Height/Length, SLOVENIAN (ft) 5 ft Height/Length SLOVENIAN 7 Inch CLINICALHEIGHT 170.18 cm [place] Body Weight 61.16 kg Weight Source, ED Critical estimated dosing weight Weight Entry Format [place] Weight Micronesian lb 140 lb CLINICALWEIGHT 63.64 kg Body [...] Triage: ED C-SSRS: ED Clinical Reconciliation: ED on air personality: EKG: Lactic Acid Level with Reflex if [...] 15.1 % LOW Lymph # 1.28 K/uL [place] % 5.9 % [place] # 0.50 K/uL Eos % 3.3 % Eos # 0.28 Baso % 0.2 % Baso # 0.02 Slide Review No Urine Type. U CleanCatch Urine Color Yellow Urine Appearance Clear Urine Specific [place] 1.007 Urine pH Dipstick *8.0 Urine Leukocyte Esterase Negative Urine Nitrite Negative Urine Protein Dipstick Negative Urine Glucose Dipstick Negative Urine Ketones Dipstick Negative Urine Urobilinogen Dipstick 0.2 EU/dL Urine Bilirubin Dipstick Negative Urine Blood Dipstick Small Ur RBC 5-10 /HPF Ur WBC 0-2 /HPF Urine Culture if Indicated Not Indicated . Radiology results: Radiology Results (Last 48 hours) [id number] -- 08/23/2021 13:33 CR Chest 1 Vw [...] EDT, Discharge to: Home . Prescriptions: Prescription Javascript Programmer Pharmacy: [facility] Dosepak 4 mg oral tablet [...] Description 09/07/2025 10:45 AM EDT Office Visit [facility] Electrophysiology [address] [place], [place] [address] [place] [address] [place] [address] [address] [place] [phone] documented as of this encounter Visit Diagnoses Not on filedocumented in this encounter Care Teams Fill Technician Relationship Specialty Start Date End Date Niranjan Mccarty MD [address] [place] [address] PCP - General Adolescent Medicine 10/15/23 documented as of this encounter
--- OUTSIDE RECORDS SUMMARY | 2025-07-03 23:43 | XMS_ITS | Encounter Summary ---
Author Organization [employer] ([place], [place], [place], [place]) Address [address] [place] [address] Care Team Providers Care Director Of Outside Sales Name Role Phone Niranjan Mccarty MD Primary Care Provider [phone] Encounter Details Date Type Department Care Team (Late Contact Info) Description 08/22/2023 Telephone [facility] Cardiology [facility] [address] [address] Patrick Travis DO [address] [phone] Social History Tobacco Use Types Packs/Day Years [...] Visit [facility] Electrophysiology [address] [place] [address] Adrienne Dunn MD [address] [facility] [address] [place] [address] documented as of this encounter Visit Diagnoses Not on filedocumented in this encounter Care Teams Director Of Outside Sales Relationship Specialty Start Date End Date Niranjan Mccarty MD [address] [place] [address] PCP - General Adolescent Medicine 10/15/23 documented as of this encounter
--- OUTSIDE RECORDS SUMMARY | 2025-07-03 23:43 | XMS_ITS | Encounter Summary ---
Author Organization [employer] ([place], [place], [place], [place]) Address [address] [place] [address] Care Team Providers Care Hospice Patient Care Secretary Name Role Phone Niranjan Mccarty MD Primary Care Provider [phone] Encounter Details Date Type Department Care Team (Late st Contact Info) Description 08/23/2021 Transcribed Document [facility] [place] [facility] [place] [address] ProviderAkash MD [address] [place], [place] [id number] Social History Tobacco Use Types Packs/Day Years [...] : 2 - Emergent Tracking Group : [facility] ED GEORGINA EVERETT RN - 08/23/2021 13:34 EDT Mode of Arrival : Stretcher Transported to ED by : Ambulance/ALS EMS Service : [facility] To Room Via : Stretcher [...] loratadine ; Type: Allergy ; Updated By: ESRGIO RILEY; Reviewed Date: 08/23/2021 13:37 EDT penicillins [...] 08/23/2021 13:42:42 EDT) Problems(Active) Anxiety (SNOMED CT :38135469 ) Name of Problem: Anxiety ; Recorder: JOSE TYSON RN; Confirmation: Confirmed ; Classification: Patient Stated ; Code: 70771154 ; Contributor System: BIOeCON ; Last Updated: 12/08/2014 8:41 EST ; Life Cycle Date: 12/08/2014 ; Life Cycle Status: Active ; Vocabulary: SNOMED CT Arthritis (SNOMED CT :7566932 ) Name of Problem: Arthritis ; Recorder: Nory Farfan RN; Confirmation: Confirmed ; Classification: Patient Stated ; Code: 8707255 ; Contributor System: BIOeCON ; Last Updated: 06/12/2021 12:48 EDT ; Life Cycle Date: 06/12/2021 ; Life Cycle Status: Active ; Vocabulary: SNOMED CT At risk for sleep apnea (IMO :98551987 ) Name of Problem: At risk for sleep apnea ; Recorder: SYSTEM, SYSTEM; Confirmation: Confirmed ; Classification: Medical ; Code: 36625011 ; Last Updated: 10/09/2019 21:47 EST ; Life Cycle Date: 10/09/2019 ; Life Cycle Status: Active ; Vocabulary: IMO Atrial fibrillation (SNOMED CT :68715742 ) Name of Problem: Atrial fibrillation ; Recorder: JOSE TYSON RN; Confirmation: Confirmed ; Classification: Patient Stated ; Code: 70524755 ; Contributor System: BIOeCON ; Last Updated: 12/08/2014 8:42 EST ; Life Cycle Date: 12/08/2014 ; Life Cycle Status: Active ; Vocabulary: SNOMED CT Atrial fibrillation (SNOMED CT :72982845 ) Name of Problem: Atrial fibrillation ; Recorder: DUANE TAVERA APRN; Confirmation: Confirmed ; Classification: Medical ; Code: 38750005 ; Contributor System: PowerChart ; Last Updated: 10/10/2019 11:36 EST ; Life Cycle Status: Active ; Vocabulary: SNOMED CT Chronic CHF (SNOMED CT :956728350 ) Name of Problem: Chronic CHF ; Recorder: JOSE TYSON RN; Confirmation: Confirmed ; Classification: Patient Stated ; Code: 669990200 ; Contributor System: PowerChart ; Last Updated: 12/08/2014 8:43 EST ; Life Cycle Date: 12/08/2014 ; Life Cycle Status: Active ; Vocabulary: SNOMED CT Chronic obstructive pulmonary disease (COPD) (SNOMED CT :88642074 ) Name of Problem: Chronic obstructive pulmonary disease (COPD) ; Recorder: Nory Farfan RN; Confirmation: Confirmed ; Classification: Patient Stated ; Code: 66347466 ; Contributor System: PowerChart ; Last Updated: 06/12/2021 12:49 EDT ; Life Cycle Date: 06/12/2021 ; Life Cycle Status: Active ; Vocabulary: SNOMED CT Chronic respiratory failure (SNOMED CT :52810799 ) Name of Problem: Chronic respiratory failure ; Recorder: JOSE TYSON RN; Confirmation: Confirmed ; Classification: Patient Stated ; Code: 60758067 ; Contributor System: PowerChart ; Last Updated: 12/08/2014 8:42 EST ; Life Cycle Date: 12/08/2014 ; Life Cycle Status: Active ; Vocabulary: SNOMED CT Diverticulosis (SNOMED CT :5130557615 ) Name of Problem: Diverticulosis ; Recorder: Nory Farfan RN; Confirmation: Confirmed ; Classification: Patient Stated ; Code: 2116286561 ; Contributor System: PowerChart ; Last Updated: 06/12/2021 12:48 EDT ; Life Cycle Date: 06/12/2021 ; Life Cycle Status: Active ; Vocabulary: SNOMED CT Fibromyalgia (SNOMED CT :983413567 ) Name of Problem: Fibromyalgia ; Recorder: Nory Farfan RN; Confirmation: Confirmed ; Classification: Patient Stated ; Code: 649496903 ; Contributor System: PowerChart ; Last Updated: 06/12/2021 12:48 EDT ; Life Cycle Date: 06/12/2021 ; Life Cycle Status: Active ; Vocabulary: SNOMED CT H/O hyperlipidemia (SNOMED CT :919930210 ) Name of Problem: H/O hyperlipidemia ; Recorder: JOSE TYSON RN; Confirmation: Confirmed ; Classification: Patient Stated ; Code: 404971153 ; Contributor System: PowerChart ; Last Updated: 12/08/2014 8:43 EST ; Life Cycle Date: 12/08/2014 ; Life Cycle Status: Active ; Vocabulary: SNOMED CT H/O sick sinus syndrome (SNOMED CT :965958333 ) Name of Problem: H/O sick sinus syndrome ; Recorder: JOSE TYSON RN; Confirmation: Confirmed ; Classification: Patient Stated ; Code: 444605435 ; Contributor System: PowerChart ; Last Updated: 12/08/2014 8:43 EST ; Life Cycle Date: 12/08/2014 ; Life Cycle Status: Active ; Vocabulary: SNOMED CT Hyperlipidemia (SNOMED CT :76575860 ) Name of Problem: Hyperlipidemia ; Recorder: AYSE; Confirmation: Confirmed ; Classification: Medical ; Code: 24191373 ; Contributor System: PowerChart ; Last Updated: 10/10/2019 11:36 EST ; Life Cycle Status: Active ; Vocabulary: SNOMED CT Hypertension (SNOMED CT :48053583 ) Name of Problem: Hypertension ; Recorder: MUSCATINE; Confirmation: Confirmed ; Classification: Medical ; Code: 81638803 ; Contributor System: PowerChart ; Last Updated: 10/10/2019 11:36 EST ; Life Cycle Status: Active ; Vocabulary: SNOMED CT Leg swelling (SNOMED CT :4769013000 ) Name of Problem: Leg swelling ; Recorder: JOSE TYSON RN; Confirmation: Confirmed ; Classification: Patient Stated ; Code: 3035083378 ; Contributor System: PowerChart ; Last Updated: 12/08/2014 8:44 EST ; Life Cycle Date: 12/08/2014 ; Life Cycle Status: Active ; Vocabulary: SNOMED CT Diagnoses(Active) Weakness Date: 08/23/2021 ; Diagnosis Type: Reason For Visit ; Confirmation: Complaint of ; Clinical Dx: Weakness ; Classification: Medical ; Clinical Service: Emergency medicine ; Code: PNED ; Probability: 0 ; Diagnosis Code: [id number] ED Height and Weight Height Source : Stated Height Entry Format : [place] Height, Feet : 5 ft(Converted to: 152 cm, 60 Inch) Height, Inches : 7 Inch(Converted to: 0 ft 7 Inch, 17.78 cm) Clinical Height : 170.18 cm Weight Source, ED : Critical estimated dosing weight Weight Entry Format : [place] Weight, Pounds : 140 lb Clinical Dosing Weight : 63.64 kg Body Surface Area (BSA) : 1.74 m2 Body Mass Index : 22 kg/m2 [place] Body Weight (IBW) : 61.16 kg GEORGINA EVERETT RN - 08/23/2021 13:34 EDT Electronically signed by [facility] Conversion Sorting Machine Attendant Cerner at 03/07/2023 1:28 PM CDT documented in this encounter Plan of Treatment Upcoming Encounters Date Type Department Care Team (Late st Contact Info) Description 09/07/2025 10:45 AM EDT Office Visit [facility] Electrophysiology [address] [place], [place] [phone] Adrienne Dunn MD [address] [place] [address] [address] [place] [address] documented as of this encounter Visit Diagnoses Not on filedocumented in this encounter Care Teams Hospice Patient Care Secretary Relationship Specialty Start Date End Date Niranjan Mccarty MD [address] [place] [address] PCP - General Adolescent Medicine 10/15/23 documented as of this encounter
--- OUTSIDE RECORDS SUMMARY | 2025-07-03 23:43 | XMS_ITS | Encounter Summary ---
Author Organization [employer] ([place], [place], [place], [place]) Address [address] [place] [address] Care Team Providers Care Tool And Die Machinist Name Role Phone Niranjan Mccarty MD Primary Care Provider [phone] Encounter Details Date Type Department Care Team (Late st Contact Info) Description 10/10/2019 Transcribed Document [facility] [place] [facility] [place] [address] ProviderAkash MD [address] [place] [id number] Social History Tobacco Use Types Packs/Day Years Used Date Smoking Tobacco: Never Assessed Comments Unknown Sex and Gender Information Value Date Recorded Sex Assigned at Not on file Legal Sex Female 1:32 PM CDT Gender Identity Not on file Sexual Orientation Not on file documented as of this encounter Miscellaneous Notes * Cerner Conversion Note - Akash Vega MD - 10/10/2019 8:07 AM SDET Patient: TRAN PEGUERO Age: 83 years Sex: [...] Daily PT/INR ordered Nataly Diaz PharmD PGY-1 Studio Control Operator Pager: [phone] Electronically signed by Cecy [facility] Conversion Cracking And Fanning Machine Operator Cerner at 03/07/2023 1:42 PM CDT documented in this encounter Plan of Treatment Upcoming Encounters Date Type Department Care Team (Late st Contact Info) Description 09/07/2025 10:45 AM EDT Office Visit [facility] Electrophysiology [address] [place] [address] [place] [address] [place] [address] [address] [place] [address] documented as of this encounter Visit Diagnoses Not on filedocumented in this encounter Care Teams Tool And Die Machinist Relationship Specialty Start Date End Date Niranjan Mccarty MD [address] [place] [address] PCP - General Adolescent Medicine 10/15/23 documented as of this encounter
--- OUTSIDE RECORDS SUMMARY | 2025-07-03 23:43 | XMS_ITS | Encounter Summary ---
Author Organization [employer] ([place], [place], [place], [place]) Address [address] [place] [address] Care Team Providers Care Distribution Engineer Name Role Phone Niranjan Mccarty MD Primary Care Provider [phone] Encounter Details Date Type Department Care Team (Late st Contact Info) Description 06/13/2021 Transcribed Document [facility] [place] [facility] [place] [address] ProviderAkash MD [address] [place], [place] [phone] Social History Tobacco Use Types Packs/Day Years [...] On: 06/13/2021 13:14 EDT by SHERRILL JUÁREZ, RN-Septic Tank Service Technician Final Discharge Planning Discharge Arrangements : Patient [...] : Yes Discharge To Care Management : Home/Residential/Long-Term or Self Care -01 SHERRILL JUÁREZ, RN-Septic Tank Service Technician - 06/13/2021 13:14 EDT documented in this encounter Plan of Treatment Upcoming Encounters Date Type Department Care Team (Late st Contact Info) Description 09/07/2025 10:45 AM EDT Office Visit [facility] [address] [place], [place] [address] [place] [address] [place] [address] [address] [place] [address] documented as of this encounter Visit Diagnoses Not on filedocumented in this encounter Care Teams Distribution Engineer Relationship Specialty Start Date End Date Niranjan Mccarty MD [address] [place] [address] PCP - General Adolescent Medicine 10/15/23 documented as of this encounter
--- OUTSIDE RECORDS SUMMARY | 2025-07-03 23:43 | XMS_ITS | Referral Summary ---
Author Organization [employer] ([place], [place], [place], [place]) Address [address] [place] [address] Care Team Providers Care Telesales Supervisor Name Role Phone Niranjan Mccarty MD Primary Care Provider [phone] Encounters Date Type Department Care Team Description 04/06/2025 5:00 AM EDT Clinical Support [facility] Electrophysiology [address] [place] [address] Adrienne Dunn MD Encounter for adjustment [...] Date Garrett rded Speak language other than Malagasy at home Not on file 11/28/2023 Want [...] Office Visit [facility] Electrophysiology [address] [phone] [place] [address] [place] [address] [address] [place] [address] Medical Devices Implanted Type Area Trainmaster Device Identifier Shelf Expiration Date Model / Serial / Lot Pacemakers-06/13 Implanted:06/13 (Quantity not on file) Pacemakers MEDROSEMARIE VERA / [id number] / Description:DEPENDENT Insurance [place] [id number] MEDICARE PART A B Care Teams Telesales Supervisor Relationship Specialty Start Date End Date Niranjan Mccarty MD [address] [place] [address] PCP - General Adolescent Medicine 10/15/23
--- OUTSIDE RECORDS SUMMARY | 2025-07-03 23:43 | XMS_ITS | Encounter Summary ---
Author Organization [employer] ([place], [place], [place], [place]) Address [address] [place] [address] Care Team Providers Care Turntable Operator Name Role Phone Niranjan Mccarty MD Primary Care Provider [phone] Encounter Details Date Type Department Care Team (Late st Contact Info) Description 08/23/2021 Transcribed Document [facility] Family Medicine [facility] [address] ProviderAkash MD [address] [place] [address] Social History Tobacco Use Types [...] Vega MD - 08/23/2021 6:35 PM CDT documented in this encounter Plan of Treatment Upcoming Encounters Date Type Department Care Team (Late st Contact Info) Description 09/07/2025 10:45 AM EDT Office Visit [facility] Electrophysiology [address] [place] [address] Adrienne Dunn MD [address] [place] [address] [address] [place] [address] documented as of this encounter Visit Diagnoses Not on filedocumented in this encounter Care Teams Turntable Operator Relationship Specialty Start Date End Date Niranjan Mccarty MD [address] [place] [address] PCP - General Adolescent Medicine 10/15/23 documented as of this encounter
--- OUTSIDE RECORDS SUMMARY | 2025-07-03 23:43 | XMS_ITS | Encounter Summary ---
Author Organization [employer] ([place], [place], [place], [place]) Address [address] [place] [address] Care Team Providers Care Stave Cutting Supervisor Name Role Phone Niranjan Mccarty MD Primary Care Provider [phone] Encounter Details Date Type Department Care Team (Late st Contact Info) Description 10/10/2019 Transcribed Document [facility] [place] [facility] [address] ProviderAkash MD [address] [place] [address] Social History Tobacco Use Types Packs/Day [...] Akash Vega MD - 10/10/2019 9:00 PM SMALL PIECE CUTTER Pain Assessment Entered On: 10/10/2019 22:55 EST [...] [facility] Electrophysiology [address] [place] [address] Adrienne Dunn MD 14[address] [facility] [address] [place], [place] [phone] documented as of this encounter Visit Diagnoses Not on filedocumented in this encounter Care Teams Stave Cutting Supervisor Relationship Specialty Start Date End Date Niranjan Mccarty MD [address] [place] [address] PCP - General Adolescent Medicine 10/15/23 documented as of this encounter
--- OUTSIDE RECORDS SUMMARY | 2025-07-03 23:43 | XMS_ITS | Encounter Summary ---
Author Organization [employer] ([place], [place], [place], [place]) Address [address] [place] [address] Care Team Providers Care Office Automation Clerk Name Role Phone Niranjan Mccarty MD Primary Care Provider [phone] Encounter Details Date Type Department Care Team (Late st Contact Info) Description 10/10/2019 Transcribed Document [facility] [place] Family Medicine [address] [place] [address] ProviderAkash MD [address] [place] [address] Social History Tobacco Use Types [...] - Historical ProviderMD - 10/10/2019 5:00 AM FROG CATCHER Chart Check - Review Order Profile Entered On: 10/10/2019 4:41 EST Performed On: 10/10/2019 5:00 EST by MEKA MANSFIELD RN Chart Check All Active Orders Reviewed : Yes MEKA MANSFIELD RN - 10/10/2019 4:41 EST Electronically signed by Sherri Sam Conversion Supervisor [employer] at 03/07/2023 1:40 PM CDT documented in this encounter Plan of Treatment Upcoming Encounters Date Type Department Care Team (Late st Contact Info) Description 09/07/2025 10:45 AM EDT Office Visit [address] [address] Adrienne Dunn MD 14[address] [facility] [address] [place], [place] [phone] documented as of this encounter Visit Diagnoses Not on filedocumented in this encounter Care Teams Office Automation Clerk Relationship Specialty Start Date End Date Niranjan Mccarty MD [address] [place] [address] PCP - General Adolescent Medicine 10/15/23 documented as of this encounter
--- OUTSIDE RECORDS SUMMARY | 2025-07-03 23:43 | XMS_ITS | Encounter Summary ---
Author Organization [employer] ([place], [place], [place], [place]) Address [address] [place] [address] Care Team Providers Care Cable Tender Name Role Phone Niranjan Mccarty MD Primary Care Provider [phone] Encounter Details Date Type Department Care Team (Late st Contact Info) Description 08/23/2021 Transcribed Document [facility] [place] [address] [place] [address] ProviderAkash MD [address] [place], [place] [id number] Social History Tobacco Use Types Packs/Day Years [...] Communication Barrier : None Primary Language : Estonian Any Spiritual/Cultural Needs or Requests : No [...] Office Visit [facility] Electrophysiology [address] [place] [address] Adrienne Dunn MD [address] [place] [address] [address] [place] [address] documented as of this encounter Visit Diagnoses Not on filedocumented in this encounter Care Teams Cable Tender Relationship Specialty Start Date End Date Niranjan Mccarty MD [address] [place] [address] PCP - General Adolescent Medicine 10/15/23 documented as of this encounter
--- OUTSIDE RECORDS SUMMARY | 2025-07-03 23:43 | XMS_ITS | Encounter Summary ---
Author Organization [employer] ([place], [place], [place], [place]) Address [address] [place] [address] Care Team Providers Care Adjustment Examiner Name Role Phone Niranjan Mccarty MD Primary Care Provider [phone] Encounter Details Date Type Department Care Team (Late st Contact Info) Description 08/23/2021 Transcribed Document [facility] [place] [facility] [place] [address] ProviderAkash MD [address] [place] [id number] Social History Tobacco Use Types Packs/Day Years [...] Lucy Lyons RN - 08/23/2021 22:15 EDT documented in this encounter Plan of Treatment Upcoming Encounters Date Type Department Care Team (Late st Contact Info) Description 09/07/2025 10:45 AM EDT Office Visit [facility] Electrophysiology [address] [place] [address] Adrienne Dunn MD [address] [place] [address] [address] [place] [address] documented as of this encounter Visit Diagnoses Not on filedocumented in this encounter Care Teams Adjustment Examiner Relationship Specialty Start Date End Date Niranjan Mccarty MD [address] [place] [address] PCP - General Adolescent Medicine 10/15/23 documented as of this encounter
--- OUTSIDE RECORDS SUMMARY | 2025-07-03 23:43 | XMS_ITS | Encounter Summary ---
Author Organization [employer] ([place], [place], [place], [place]) Address [address] [place] [address] Care Team Providers Care Geographic Information System Surveyor Name Role Phone Niranjan Mccarty MD Primary Care Provider [phone] Encounter Details Date Type Department Care Team (Late st Contact Info) Description 08/23/2021 Transcribed Document [facility] [place] [address] [place] [address] ProviderAkash MD [address] [place], [place] [phone] Social History Tobacco Use Types Packs/Day Years [...] : Low risk (0) [place]set Interventions : [place] precautions for safety used GEORGINA EVERETT RN - 08/23/2021 13:43 EDT documented in this encounter Plan of Treatment Upcoming Encounters Date Type Department Care Team (Late st Contact Info) Description 09/07/2025 10:45 AM EDT Office Visit [facility] Electrophysiology [address] [place] [address] Adrienne Dunn MD 1401 [facility] [address] [place] [address] documented as of this encounter Visit Diagnoses Not on filedocumented in this encounter Care Teams Geographic Information System Surveyor Relationship Specialty Start Date End Date Niranjan Mccarty MD [address] [place] [address] PCP - General Adolescent Medicine 10/15/23 documented as of this encounter
--- OUTSIDE RECORDS SUMMARY | 2025-07-03 23:43 | XMS_ITS | Encounter Summary ---
Author Organization [employer] ([place], [place], [place], [place]) Address [address] [place] [address] Care Team Providers Care Deputy Assessor Name Role Phone Niranjan Mccarty MD Primary Care Provider [phone] Encounter Details Date Type Department Care Team (Late Contact Info) Description 06/13/2021 Transcribed Document [facility] [place] [facility] [place] [address] ProviderAkash MD [address] [place] [phone] Social History Tobacco Use Types Packs/Day Years [...] Description 09/07/2025 10:45 AM EDT Office Visit [facility] Electrophysiology [address] [place] [phone] Adrienne Dunn MD 1401 [facility] [address] [place] [address] documented as of this encounter Visit Diagnoses Not on filedocumented in this encounter Care Teams Deputy Assessor Relationship Specialty Start Date End Date Niranjan Mccarty MD [address] [place] [address] PCP - General Adolescent Medicine 10/15/23 documented as of this encounter
--- OUTSIDE RECORDS SUMMARY | 2025-07-03 23:43 | XMS_ITS | Encounter Summary ---
Author Organization [employer] ([place], [place], [place], [place]) Address [address] [place] [address] Care Team Providers Care Open Hearth Furnace Laborer Name Role Phone Niranjan Mccarty MD Primary Care Provider [phone] Encounter Details Date Type Department Care Team (Late st Contact Info) Description 08/24/2021 Transcribed Document [facility] [place] Family Medicine [address] [place] [address] ProviderAkash MD [address] [place] [address] Social History Tobacco Use Types [...] Description 09/07/2025 10:45 AM EDT Office Visit [address] [address] Adrienne Dunn MD [address] [facility] [address] [place] [address] documented as of this encounter Visit Diagnoses Not on filedocumented in this encounter Care Teams Open Hearth Furnace Laborer Relationship Specialty Start Date End Date Niranjan Mccarty MD [address] [place] [address] PCP - General Adolescent Medicine 10/15/23 documented as of this encounter
--- OUTSIDE RECORDS SUMMARY | 2025-07-03 23:43 | XMS_ITS | Encounter Summary ---
Author Organization [employer] ([place], [place], [place], [place]) Address [address] [place] [address] Care Team Providers Care Weaver Tire Cord Name Role Phone Niranjan Mccarty MD Primary Care Provider [phone] Encounter Details Date Type Department Care Team (Late st Contact Info) Description 10/10/2019 Transcribed Document [facility] [place] Family Medicine [facility] [place] [address] ProviderAkash MD [address] [place], [place] [phone] Social History Tobacco Use Types Packs/Day Years Used Date Smoking Tobacco: Never Assessed Comments Unknown Sex and Gender Information Value Date Recorded Sex Assigned at Not on file Legal Sex Female 1:32 PM CDT Gender Identity Not on file Sexual Orientation Not on file documented as of this encounter Miscellaneous Notes * Cerner Conversion Note - Akash Vega MD - 10/10/2019 11:58 AM ELECTRIC SYSTEM OPERATOR UM Authorization Entered On: 10/10/2019 11:59 EST Performed On: 10/10/2019 11:58 EST by SABRINA MCKEON RN Primary Insurance Authorization Authorization and Policy Numbers : Insurance 1 Health Plan: MEDICARE Policy Number: [id number] Authorization Number: Insurance 2 Health Plan: [facility] Policy Number: [id number] Authorization Number: Insurance Primary Name : MEDICARE Policy Number: [id number] Historical Authorization Comments-Primary : No Authorization Comments Found SABRINA MCKEON RN - 10/10/2019 11:58 EST documented in this encounter Plan of Treatment Upcoming Encounters Date Type Department Care Team (Late st Contact Info) Description 09/07/2025 10:45 AM EDT Office Visit [facility] Electrophysiology [address] [place] [phone] [place] [address] [place] [address] [address] [place] [address] documented as of this encounter Visit Diagnoses Not on filedocumented in this encounter Care Teams Weaver Tire Cord Relationship Specialty Start Date End Date Niranjan Mccarty MD [address] [place] [address] PCP - General Adolescent Medicine 10/15/23 documented as of this encounter
--- OUTSIDE RECORDS SUMMARY | 2025-07-03 23:43 | XMS_ITS | Encounter Summary ---
Author Organization [employer] ([place], [place], [place], [place]) Address [address] [place] [address] Care Team Providers Care Hydroelectric Mechanic Name Role Phone Niranjan Mccarty MD Primary Care Provider [phone] Encounter Details Date Type Department Care Team (Late st Contact Info) Description 06/13/2021 Transcribed Document [facility] [place] Medicine [facility] [address] ProviderAkash MD [address] [place] [address] Social History Tobacco Use Types [...] Vega MD - 06/13/2021 3:30 PM CDT [facility] [place] [id number] WILD TRANDAREN MENDOZA :1935 Visit Time:06/12/2021 Your [...] Dr. Dunn Appointment has been made Where: [facility] [address] [place] [address]- Business (1) Medications What How Much When [...] these instructions at home: Medicines ??? Take rkmw-jgr-xgvcqza and prescription medicines only as told by [...] and water are not available, use hand youth officer. ? Change your dressing as told by [...] your chest for several days. ??? Take ujmx-yfz-tyelfkk and prescription medicines only as told by [...] Reviewed: 10/04/2019 Elsevier Patient Education ?? 2020 ElsePro Options Marketing Inc. Heart-Healthy Eating Plan Heart-healthy meal planning [...] Fats and oils Meat fat, or shortening. [place] butter, hydrogenated oils, palm oil, coconut oil, [...] provider. Document Revised: 01/07/2019 Document Reviewed: 12/11/2018 Petpace Patient Education ?? 2020 Fruitday.com. Emergency Awareness and Preventative Care STROKE is [...] Assistance with quitting is available by contacting 6-071-QXWO-NOW. This is a free resource providing counseling, [...] range between ( 0.0 and 7.0 ) [place] #: 0.48 K/uL -- Normal range between ( 0.16 and 1.00 ) Eos #: 0.16 x10(3)/uL -- Normal range between ( 0.00 and 0.80 ) [place] %: 8.0 % -- Normal range between [...] was given the opportunity to ask questions. Patient/Assembly Line Upholsterer Name: Patient/Assembly Line Upholsterer Signature: Relationship to Patient: Clinician/Hospital Assembly Line Upholsterer Signature: Date: Electronically signed by Cecy, [facility] Conversion Hoist Mechanic Cerner at 03/07/2023 1:48 PM CDT documented in this encounter Plan of Treatment Upcoming Encounters Date Type Department Care Team (Late st Contact Info) Description 09/07/2025 10:45 AM EDT Office Visit [address] [address] Adrienne Dunn MD [address] [place] [address] [address] [place] [address] documented as of this encounter Visit Diagnoses Not on filedocumented in this encounter Care Teams Hydroelectric Mechanic Relationship Specialty Start Date End Date Niranjan Mccarty MD [address] [place] [address] PCP - General Adolescent Medicine 10/15/23 documented as of this encounter
--- OUTSIDE RECORDS SUMMARY | 2025-07-03 23:43 | XMS_ITS | Encounter Summary ---
Author Organization [employer] ([place], [place], [place], [place]) Address [address] [place] [address] Care Team Providers Care Assembly Detailer Name Role Phone Niranjan Mccarty MD Primary Care Provider [phone] Encounter Details Date Type Department Care Team (Late st Contact Info) Description 08/23/2021 Transcribed Document [facility] [place] Family Medicine [facility] [place] [address] ProviderAkash MD [address] [place] [address] Social History Tobacco Use Types [...] Vega MD - 08/23/2021 8:36 PM CDT [facility] [place] [id number] TAL PEGUERO :1935 Visit Time:08/23/2021 Your Visit [...] to 3 days Where: [address] [place] [address] [employer] (1) Allergies Advicor Radha Baycol Biaxin Claritin [...] A Day Duration: 10 Day(s) Pickup at [facility] methylPREDNISolone (Medrol Dosepak 4 mg oral tablet) 1 Packet(s) Oral Every Day Duration: 6 Day(s) as directed on package labeling Pickup at [facility] ALPRAZolam (Xanax 0.5 mg oral tablet) 1 [...] Oral Every Day except sundays Pharmacy Information [facility]: [address] [id number] [phone] The home medications listed are only as [...] range between ( 0.0 and 7.0 ) Riley #: 0.50 K/uL -- Normal range between ( 0.16 and 1.00 ) Eos #: 0.28 -- Normal range between ( 0.00 and 7.00 ) Riley %: 5.9 % -- Normal range between [...] ) Urine Bilirubin Dipstick: Negative Urine Specific Avalon: 1.007 -- Normal range between ( 1.005 [...] these instructions at home: Medicines ??? Take uktx-xmu-pufqwaz and prescription medicines only as told by [...] and water are not available, use hand silver solution mixer. ??? During flu season, avoid enclosed spaces [...] Reviewed: 12/08/2017 Elsevier Patient Education ?? 2020 Compellonvier Inc. Emergency Awareness and Preventative Care STROKE [...] Assistance with quitting is available by contacting 7-049-HHKR-NOW. This is a free resource providing counseling, support, and referral. Or you may contact your personal physician. [place] Suicide Prevention Lifeline: The National Suicide Prevention [...] was given the opportunity to ask questions. Patient/Rag Room Supervisor Name: Patient/Rag Room Supervisor Signature: Relationship to Patient: Clinician/Hospital Rag Room Supervisor Signature: Please Provide a Telephone Number Where You Can Be Reached: Is it Permissible To Leave a Message? Date: documented in this encounter Plan of Treatment Upcoming Encounters Date Type Department Care Team (Late st Contact Info) Description 09/07/2025 10:45 AM EDT Office Visit [facility] Electrophysiology [address] [place], [place] [phone] [place] [address] [place] [address] [address] [place] [id number] documented as of this encounter Visit Diagnoses Not on filedocumented in this encounter Care Teams Assembly Detailer Relationship Specialty Start Date End Date Niranjan Mccarty MD [address] [place] [address] PCP - General Adolescent Medicine 10/15/23 documented as of this encounter
--- OUTSIDE RECORDS SUMMARY | 2025-07-03 23:43 | XMS_ITS | Encounter Summary ---
Author Organization [employer] ([place], [place], [place], [place]) Address [address] [place] [address] Care Team Providers Care Phytopathology Teacher Name Role Phone Niranjan Mccarty MD Primary Care Provider [phone] Encounter Details Date Type Department Care Team (Late st Contact Info) Description 06/13/2021 Transcribed Document [facility] [place] Family Medicine [address] [place] [address] ProviderAkash MD [address] [place], [place] [phone] Social History Tobacco Use Types Packs/Day Years [...] Fats and oils Meat fat, or shortening. [place] butter, hydrogenated oils, palm oil, coconut oil, [...] Reviewed: 12/11/2018 Elsevier Patient Education ? 2020 SPOOTNIC.COMvier Inc. Procedures Biventricular Pacemaker Implantation, Care After [...] these instructions at home: Medicines ??? Take cbsp-uaz-uhhhcjv and prescription medicines only as told by [...] and water are not available, use hand advertising copywriter. ? Change your dressing as told by [...] your chest for several days. ??? Take lszq-oyf-eazhqkh and prescription medicines only as told by [...] Reviewed: 10/04/2019 Elsevier Patient Education ? 2019 [employer] documented in this encounter Plan of Treatment Upcoming Encounters Date Type Department Care Team (Late st Contact Info) Description 09/07/2025 10:45 AM EDT Office Visit [facility] Electrophysiology [address] [phone] Adrienne Dunn MD [address] [facility] [address] [place] [address] documented as of this encounter Visit Diagnoses Not on filedocumented in this encounter Care Teams Phytopathology Teacher Relationship Specialty Start Date End Date Niranjan Mccatry MD [address] [place] [address] PCP - General Adolescent Medicine 10/15/23 documented as of this encounter
--- OUTSIDE RECORDS SUMMARY | 2025-07-03 23:43 | XMS_ITS | Encounter Summary ---
Author Organization [employer] ([place], [place], [place], [place]) Address [address] [place] [address] Care Team Providers Care Signal Maintainer Name Role Phone Niranjan Mccarty MD Primary Care Provider [phone] Encounter Details Date Type Department Care Team (Late st Contact Info) Description 06/13/[address] [facility] [place] Family Medicine [facility] [place] [address] ProviderAkash MD [address] [place] [address] Social History Tobacco Use Types [...] Vega MD - 06/13/2021 3:32 PM CDT [facility] [place] [id number] WILD TRANDAREN MENDOZA :1935 Visit Time:06/12/2021 Your [...] Dr. Dunn Appointment has been made Where: [facility] [address] [place] [address]- Business (1) Medications What How Much When [...] these instructions at home: Medicines ??? Take bxwp-gpc-ieprwvz and prescription medicines only as told by [...] and water are not available, use hand landing signal officer. ? Change your dressing as told [...] your chest for several days. ??? Take kctt-kpb-ymgrhuc and prescription medicines only as told by [...] Reviewed: 10/04/2019 Elsevier Patient Education ?? 2020 ElseVeoh Inc. Heart-Healthy Eating Plan Heart-healthy meal planning [...] Fats and oils Meat fat, or shortening. [place] butter, hydrogenated oils, palm oil, coconut oil, [...] provider. Document Revised: 01/07/2019 Document Reviewed: 12/11/2018 [employer] Patient Education ?? 2020 Uniiverse. Emergency Awareness and Preventative Care STROKE is [...] Assistance with quitting is available by contacting 3-497-TECV-NOW. This is a free resource providing counseling, [...] range between ( 0.0 and 7.0 ) [place] #: 0.48 K/uL -- Normal range between ( 0.16 and 1.00 ) [place] #: 0.16 x10(3)/uL -- Normal range between ( 0.00 and 0.80 ) [place] %: 8.0 % -- Normal range between [...] was given the opportunity to ask questions. Patient/Consumer Services Consultant Name: Patient/Consumer Services Consultant Signature: Relationship to Patient: Clinician/Hospital Consumer Services Consultant Signature: Date: Electronically signed by Interface, [facility] Conversion Airborne Mission Systems Cerner at 03/07/2023 1:44 PM CDT documented in this encounter Plan of Treatment Upcoming Encounters Date Type Department Care Team (Late st Contact Info) Description 09/07/2025 10:45 AM EDT Office Visit [address] [address] Adrienne Dunn MD [address] [place] [address] [address] [place] [address] documented as of this encounter Visit Diagnoses Not on filedocumented in this encounter Care Teams Signal Maintainer Relationship Specialty Start Date End Date Niranjan Mccarty MD [address] [place] [address] PCP - General Adolescent Medicine 10/15/23 documented as of this encounter
--- OUTSIDE RECORDS SUMMARY | 2025-07-03 23:43 | XMS_ITS | Encounter Summary ---
Author Organization [employer] ([place], [place], [place], [place]) Address [address] [place] [address] Care Team Providers Care Systems Analyst Name Role Phone Niranjan Mccarty MD Primary Care Provider [phone] Encounter Details Date Type Department Care Team (Late st Contact Info) Description 06/13/2021 Transcribed Document [facility] [place] [address] ProviderAkash MD [address] [place] [address] Social History Tobacco Use Types [...] Vega MD - 06/13/2021 3:12 PM CDT [facility] [place] [id number] WILD TALDAREN MENDOZA :1935 Visit Time:06/12/2021 Your [...] Where: [facility] [address] [place] [address]- [employer] (1) Medications What How Much When Instructions [...] these instructions at home: Medicines ??? Take siqo-npt-nnulpgf and prescription medicines only as told by [...] and water are not available, use hand child nurse. ? Change your dressing as told by [...] your chest for several days. ??? Take gunc-qec-obgpltl and prescription medicines only as told by [...] Reviewed: 10/04/2019 Elsevier Patient Education ?? 2020 [employer] Inc. Heart-Healthy Eating Plan Heart-healthy meal planning [...] Fats and oils Meat fat, or shortening. [place] butter, hydrogenated oils, palm oil, coconut oil, [...] provider. Document Revised: 01/07/2019 Document Reviewed: 12/11/2018 ElseCampuScene Patient Education ?? 2020 Vudu. Emergency Awareness and Preventative Care STROKE is [...] Assistance with quitting is available by contacting 6-029-JQID-NOW. This is a free resource providing counseling, [...] range between ( 0.0 and 7.0 ) [place] #: 0.48 K/uL -- Normal range between ( 0.16 and 1.00 ) [place] #: 0.16 x10(3)/uL -- Normal range between ( 0.00 and 0.80 ) [place] %: 8.0 % -- Normal range between [...] was given the opportunity to ask questions. Patient/Hydraulic Modeling Engineer Name: Patient/Hydraulic Modeling Engineer Signature: Relationship to Patient: Clinician/Hospital Hydraulic Modeling Engineer Signature: Date: documented in this encounter Plan of Treatment Upcoming Encounters Date Type Department Care Team (Late st Contact Info) Description 09/07/2025 10:45 AM EDT Office Visit [facility] Electrophysiology [address] [place], [place] [phone] Ewa Dunn MD [address] [place] [address] [address] [place] [phone] documented as of this encounter Visit Diagnoses Not on filedocumented in this encounter Care Teams Systems Analyst Relationship Specialty Start Date End Date Niranjan Mccarty MD [address] [place] [address] PCP - General Adolescent Medicine 10/15/23 documented as of this encounter
--- OUTSIDE RECORDS SUMMARY | 2025-07-03 23:43 | XMS_ITS | Encounter Summary ---
Author Organization [employer] ([place], [place], [place], [place]) Address [address] [place] [address] Care Team Providers Care Atomizer Assembler Name Role Phone Niranjan Mccarty MD Primary Care Provider [phone] Encounter Details Date Type Department Care Team (Late st Contact Info) Description 10/10/2019 Transcribed Document [facility] [place] [facility] [place] [address] ProviderAkash MD [address] [place] [address] Social History Tobacco Use Types Packs/Day Years Used Date Smoking Tobacco: Never Assessed Comments Unknown Sex and Gender Information Value Date Recorded Sex Assigned at Not on file Legal Sex Female 1:32 PM CDT Gender Identity Not on file Sexual Orientation Not on file documented as of this encounter Miscellaneous Notes * Cerner Conversion Note - Akash ProviderMD - 10/10/2019 2:00 AM END USER CONSULTANT Sock Lining Examiner Details Entered On: 10/10/2019 1:12 EST Performed [...] 10/10/2019 1:12 EST Electronically signed by Cecy [facility] Conversion Plastic Molder Cerner at 03/07/2023 1:26 PM CDT documented in this encounter Plan of Treatment Upcoming Encounters Date Type Department Care Team (Late st Contact Info) Description 09/07/2025 10:45 AM EDT Office Visit [facility] Electrophysiology [address] [place] [phone] Adrienne Dunn MD [address] [facility] [address] [place] [address] documented as of this encounter Visit Diagnoses Not on filedocumented in this encounter Care Teams Atomizer Assembler Relationship Specialty Start Date End Date Niranjan Mccarty MD [address] [place] [address] PCP - General Adolescent Medicine 10/15/23 documented as of this encounter
--- OUTSIDE RECORDS SUMMARY | 2025-07-03 23:43 | XMS_ITS | Encounter Summary ---
Author Organization [employer] ([place], [place], [place], [place]) Address [address] [place] [address] Care Team Providers Care Informatics Scientist Name Role Phone Niranjan Mccarty MD Primary Care Provider [phone] Encounter Details Date Type Department Care Team (Late st Contact Info) Description 08/23/2021 Transcribed Document [facility] [place] [address] [place] [address] ProviderAkash MD [address] [place], [place] [phone] Social History Tobacco Use Types Packs/Day Years [...] Vega MD - 08/23/2021 1:33 PM CDT [place] Suicide Severity Rating Scale (C-SSRS) Entered On: 08/23/2021 13:46 EDT Performed On: 08/23/2021 13:43 EDT by GEORGINA EVERETT RN [place] Suicide Severity Rating Scale (C-SSRS) CSSRS Past [...] [facility] Electrophysiology [address] [place] [phone] Adrienne Dunn MD [address] [facility] [address] [place], [place] [phone] documented as of this encounter Visit Diagnoses Not on filedocumented in this encounter Care Teams Informatics Scientist Relationship Specialty Start Date End Date Niranjan Mccarty MD [address] [place] [address] PCP - General Adolescent Medicine 10/15/23 documented as of this encounter
--- OUTSIDE RECORDS SUMMARY | 2025-07-03 23:43 | XMS_ITS | Encounter Summary ---
Author Organization [employer] ([place], [place], [place], [place]) Address [address] [place] [address] Care Team Providers Care Consulting Database Administrator Name Role Phone Niranjan Mccarty MD Primary Care Provider [phone] Encounter Details Date Type Department Care Team (Late st Contact Info) Description 06/13/2021 Transcribed Document [facility] Family Medicine [facility] [address] ProviderAkash MD [address] [place] [phone] Social History Tobacco Use Types Packs/Day Years [...] Description 09/07/2025 10:45 [place] [address] Adrienne Dunn MD [address] [facility] [address] [place] [phone] documented as of this encounter Visit Diagnoses Not on filedocumented in this encounter Care Teams Consulting Database Administrator Relationship Specialty Start Date End Date Niranjan Mccarty MD [address] [place] [address] PCP - General Adolescent Medicine 10/15/23 documented as of this encounter
--- NOTE | 2025-07-03 23:44 | HMH.EDGENADL ---
Discharge Plan Disposition Patient Disposition: Home, Self-Care Condition: Good Prescriptions Prescriptions: No Action umeclidinium-vilanterol 62.5-25 mcg/actuation blister with device 1 puff IH DAILY 30 Days Qty: 60 Patient Comments: digoxin 125 mcg (0.125 mg) tablet 0.125 mg PO DAILY torsemide 10 mg tablet 10 mg PO NEEDED PRN (Reason: Fluid) sotalol 160 mg tablet 160 mg PO BID Eva Saline 0.65 % aerosol,spray 2 spray intranasal Q4H PRN (Reason: epistaxis) Qty: 50 4RF acetaminophen 500 MG tablet 500 mg PO Q4HP PRN (Reason: As Needed For Fever Or Pain) Rx Instructions: take 1 tab q4-6h prn alprazolam [Xanax] 0.5 MG tablet 0.5 mg PO TID Rx Instructions: take 1 tab daily, 0.5 tab at 1500, 1 tab at hs warfarin 7.5 mg tablet 7.5 mg PO HS Rx Instructions: half of a tab Friday Only Referrals Follow up/Referrals: Provider,Referral, MD [Referring, Medical] - See instructions Activity Restrictions/Add. Instructions Additional Instructions/Restrictions: You were evaluated in the ER and are believed to be appropriate for discharge at this time. Keep the dressing in place over the wound. Do not remove this until you go to your appointment with Dr. Hutchinson on Friday. It is very important that you keep this appointment. Please call his office in the morning to tell them you are in the ER because your wound was bleeding. Continue taking your home medications as prescribed including your new dose of warfarin. Follow-up with the surgeons office as scheduled. Return to the ER with new, worsening, or otherwise concerning symptoms Clinical Impressions Clinical Impression: Bleeding from surgical wound Instructions Patient Instructions: DI for Skin Abscess Print Language Print Language: Bahraini Discharge ED Provider: Veronique Pham General Adult HPI General Chief complaint: Skin/Abscess/Foreign Body Stated complaint: Bleeding from surgical site Time Seen by Provider: 07/03/25 23:31 Mode of Arrival: EMS Source of Information: Patient and EMS Description of Symptoms (Recalled from ER Triage Doc. by RN): pt to ED via EMS with c/o of bleeding on the chest. Pt has cancerous area removed , and the area was caurterized. Pt takes Warfarin. History of Present Illness HPI narrative: 89-year-old female presents to the ER with EMS for concerns of bleeding wound on the chest. Patient had skin cancer removed by Dr. Hutchinson on and the area had to be cauterized, they could not suture it because of her very thin skin. Patient does take warfarin stating that she is currently on a reduced dose because of the operation until her follow-up next week. She states she has follow-up with Dr. Hutchinson on Friday the . Patient reports she was on the phone when she noticed her dress felt wet and she looked down and it was soaked in blood. EMS reportedly attempted to get hemostasis on scene but was unable to achieve this very well so they brought the patient to the ER. On arrival to the ER patient has a bloodsoaked gauze and Tegaderm dressing on the chest. Tegaderm is tented with a large blood clot but there does not appear to be bleeding from around the Tegaderm at this time. Patient denies any dizziness or weakness, no shortness of breath. There were no reports from EMS or patient of any pulsatile bleeding. No other complaints or concerns. Related Data Home Medications ?Medication ?Instructions ?Recorded ?Confirmed umeclidinium 62.5 mcg-vilanterol 1 puff inhalation DAILY Breathing 02/16/18 06/28/25 25 mcg/actuation powdr for problems 30 days ##60 inhalation acetaminophen 500 mg tablet 500 mg PO Q4HP PRN As Needed For 07/19/20 06/28/25 Fever Or Pain alprazolam 0.5 mg tablet (Xanax) 0.5 mg PO TID Anxiety 07/19/20 06/28/25 sotalol 160 mg tablet 160 mg PO BID heart 12/07/20 05/11/25 warfarin 7.5 mg tablet 7.5 mg PO HS Blood thinner 05/21/23 05/11/25 digoxin 125 mcg (0.125 mg) tablet 0.125 mg PO DAILY 12/16/23 06/28/25 torsemide 10 mg tablet 10 mg PO NEEDED PRN Fluid 12/16/23 06/28/25 Previous Rx's ?Medication ?Instructions ?Recorded sodium chloride 0.65 % nasal spray 2 spray intranasal Q4H PRN 04/19/24 aerosol (Eva Saline) epistaxis #50 mL Allergies Allergy/AdvReac Type Severity Reaction Status Date / Time ciprofloxacin (From Cipro HC) Allergy Severe DIFFICULTY Verified 05/11/25 11:50 SPEAKING,SHORTNESS OF BREATH codeine Allergy Severe DIFFICULTY Verified 05/11/25 11:50 SPEAKING, SHORTNESS OF BREATH hydrocortisone (From Cipro Allergy Severe DIFFICULTY Verified 05/11/25 11:50 HC) SPEAKING,SHORTNESS OF BREATH Iodinated Contrast Media Allergy Severe LOCKED JAWS Verified 05/11/25 11:50 (Iodinated Contrast Media - IV Dye) fexofenadine (From Radha) Allergy Intermediate LIPS SWELL Verified 05/11/25 11:50 ioxaglic acid Allergy Intermediate I-HIVES; Verified 05/11/25 11:50 LIPS SWELL loratadine (From Claritin) Allergy Intermediate LIPS SWELL Verified 05/11/25 11:50 Penicillins Allergy Intermediate I-RASH Verified 05/11/25 11:50 rofecoxib Allergy Intermediate MAKES Verified 05/11/25 11:50 SICK ALL OVER tetracaine Allergy Mild PAIN IN EYE Verified 05/11/25 11:50 azithromycin (AZITHROMYCIN) Allergy Unknown Unknown Verified 05/11/25 11:50 allergy reaction calcium carbonate (From Allergy Unknown Unknown Verified 05/11/25 11:50 OS-ARMIDA) allergy reaction cefuroxime (CEFUROXIME) Allergy Unknown Unknown Verified 05/11/25 11:50 allergy reaction cerivastatin Allergy Unknown Unknown Verified 05/11/25 11:50 allergy reaction erythromycin base Allergy Unknown Unknown Verified 05/11/25 11:50 allergy reaction lovastatin (From Advicor) Allergy Unknown UNKNOWN Verified 05/11/25 11:50 menaquinone-7 (vitamin K2) Allergy Unknown Unknown Verified 05/11/25 11:50 (VITAMIN K2) allergy reaction niacin (From Advicor) Allergy Unknown UNKNOWN Verified 05/11/25 11:50 phytonadione (vitamin K1) Allergy Unknown UNKOWN Verified 05/11/25 11:50 (phytonadione) Sulfa (Sulfonamide Allergy Unknown Unknown Verified 05/11/25 11:50 Antibiotics) allergy reaction cortisone AdvReac Intermediate SWELLING Verified 05/11/25 11:50 aspirin (From Percodan) AdvReac Mild HYPER Verified 05/11/25 11:50 clarithromycin (From Biaxin) AdvReac Mild NA-DIARRHEA Verified 05/11/25 11:50 oxycodone (From Percodan) AdvReac Mild HYPER Verified 05/11/25 11:50 [facility] Disclaimer: The information contained in this section may have been updated after the patient was seen, as this information can be updated by other users. Medical History NSTEMI (non-ST elevated myocardial infarction) Staphylococcus aureus pneumonia Dyspnea on exertion Atypical pneumonia Multiple pulmonary nodules History of gastroesophageal reflux (GERD) History of skin cancer History of fibromyalgia History of arthritis History of hyperlipidemia History of hypertension History of pacemaker Surgical History History of surgical removal of skin lesion S/P placement of cardiac pacemaker History of colonoscopy Family History Other No significant family history Social History Smoking Status: Unknown if ever smoked alcohol intake: never substance use type: denies use current occupational status: retired Travel in the last 8 weeks?: None household members: spouse housing: house current occupational exposures/hazards: No caffeine: No Have you lived/traveled outside US in past 30 days?: No Contact w/someone who lives/traveled outside US past 30 days?: No Exposure to someone with infectious disease in past 14 days?: No Do you have a fever (greater than 100.4 F or 38 C)?: No Have you tested positive for COVID-19?: No Exposed to someone with COVID-19 in past 14 days?: No Do you have a sore throat?: No Do you have a cough?: No Do you have any weakness?: No Do you have any diarrhea?: No Are you experiencing any unusual bleeding?: Yes Do you have any muscle aches/pain?: No Do you have any abdominal pain?: No Are you experiencing loss of taste or smell?: No Other Medical History Have you received the Flu Vaccine for this season: No Have you received the Pneumonia Vaccine: No ROS Obtained: Yes Systems reviewed as appropriate & no additional complaints except as documented Per HPI Physical Exam General General appearance: alert and in no apparent distress Head Head exam: atraumatic and normocephalic Eye Eye exam: Present PERRL and EOMI ENT ENT exam: Present mucous membranes moist Neck Neck exam: Present normal inspection and full ROM Chest Chest inspection: Present symmetric chest wall rise Expanded Chest Exam Female Torso:  1. 4 cm diameter wound overlying the sternum with clean edges, no erythema, induration, or fluctuance. Clot present, hemostatic. No bleeding. Mild surrounding bruising. 2. 1 cm diameter wound with clean edges, no erythema, induration, or fluctuance. Hemostatic, no bleeding. Respiratory Respiratory exam: Present normal lung sounds bilaterally; Absent respiratory distress, wheezes or stridor Cardiovascular Cardiovascular exam: Present regular rate and normal rhythm Abdominal Exam Abdominal exam: Present soft; Absent distention or tenderness Extremities Exam Extremities exam: Present full ROM; Absent edema Neurological Exam Neurological exam: Present alert and oriented X3; Absent motor sensory deficit Psychiatric Psychiatric exam: Present normal affect and normal mood Skin Skin exam: Present warm and dry Medical Decision Making Medical Records Medical records reviewed: Yes I reviewed the patient's medical records. Screening: Per USPSTF and CDC recommendations, given the prevalence of disease in our region, it is our hospital?s policy to screen for HIV and viral Hepatitis for all patients aged 18 and over and those with ongoing risk factors. MR Comment: Operative note from 06/30/2025 reviewed by me demonstrates large fungating lesion in the mid central chest was excised and cautery was used to achieve hemostasis. Plan for the wounds to heal by secondary intention. 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 Rashel Inquiry Pt receiving controlled substance: No Vital Signs: 07/03/25 23:33 Pulse Rate [Left Radial] 69 Respiratory Rate 18 Blood Pressure [Left Arm] 154/86 H Blood Pressure Mean [Left Arm] 108 Blood Pressure Source [Left Arm] Automatic Cuff Blood Pressure Position [Left Arm] Sitting 02 Sat by Pulse Oximetry 97 Oxygen Delivery Method Room Air Lab Data Lab Results 07/03/25 23:50: PT 28.0 H, INR 2.72 H Orders (Tests/Meds): ORDERS Category Date Time Status PT INR [Prothrombin Time INR] Stat Lab 07/03/25 23:50 Completed Medical Decision Narrative: In summary, this 89-year-old female with history of squamous cell carcinoma excision, NSTEMI, warfarin use presents to the emergency department today with bleeding wound on the chest from skin cancer excision. On initial evaluation patient is hemodynamically stable, afebrile, overall well-appearing with brisk capillary refill, no shortness of breath, saturating well on room air, wound in the central chest is hemostatic at this time with good clot in place.. Differential diagnosis includes but is not limited to postoperative bleeding, considered the possibility of supratherapeutic INR though I have lower suspicion for this since patient is on a reduced dose of warfarin in the postoperative setting anyways, also considered the possibility of small arterial bleed though there is no evidence of this clinically. No evidence of infection at the wound. I do not believe the patient requires any imaging. Wound was very gently cleaned and Surgicel applied. I discussed this case with Dr. Watt on-call for general surgery asking for recommendations for dressing care, he states the Surgicel dressing can remain in place for at least 48 hours and is fine to be kept in place until patient's follow-up in 3 days on 07/06/2025. He does not have recommendations for other acute management at this time. I appreciate his recommendations. I am checking a PT/INR to ensure the patient is not supratherapeutic on her warfarin but do not believe she requires any further workup at this time. Labs reviewed by me demonstrate INR 2.72, nonactionable at this time. Patient is very anxious about going home afraid she will have bleeding again. I have spent extensive time at bedside counseling and educating her on monitoring her wound and encouraged her to set an alarm to wake up a few times overnight to check the dressing. I also explained to her it was very important to not remove the dressing or touch the area with her hands at all. She understands this. She is appropriate for discharge at this time. She was given instructions for keeping the dressing in place until follow-up with Dr. Hutchinson's office, follow-up instructions, and return precautions for the ER. She indicated understanding and the patient was discharged in stable condition. Critical Care Critical Care Time Critical Care Time: No
--- OUTSIDE RECORDS SUMMARY | 2025-07-03 23:44 | XMS_ITS | Encounter Summary ---
Author Organization [employer] ([place], [place], [place], [place]) Address [address] [place] [address] Care Team Providers Care Senior Sas Developer Name Role Phone Niranjan Mccarty MD Primary Care Provider [phone] Encounter Details Date Type Department Care Team (Late st Contact Info) Description 06/13/2021 Transcribed Document [facility] [place] Family Medicine [address] [place] [address] ProviderAkash MD [address] [place], [place] [phone] Social History Tobacco Use Types Packs/Day Years [...] Insurance 1 Health Plan: MEDICARE Policy Number: [id number] Authorization Number: Insurance 2 Health Plan: [facility] Policy Number: [id number] Authorization Number: Insurance Primary Name : MEDICARE Authorized Service Begin Date-Primary : 06/12/2021 EDT Historical Authorization Comments-Primary : No Authorization Comments Found Jen Rothman Rn-Utilization Review - 06/13/2021 13:21 EDT Electronically signed by Cecy [facility] Conversion Travel Physical Therapist Cerner at 03/07/2023 1:31 PM CDT documented in this encounter Plan of Treatment Upcoming Encounters Date Type Department Care Team (Late st Contact Info) Description 09/07/2025 10:45 AM EDT Office Visit [facility] Electrophysiology [address] [place] [phone] Adrienne Dunn MD [address] [place] [address] [address] [place] [phone] documented as of this encounter Visit Diagnoses Not on filedocumented in this encounter Care Teams Senior Sas Developer Relationship Specialty Start Date End Date Niranjan Mccarty MD [address] [place] [address] PCP - General Adolescent Medicine 10/15/23 documented as of this encounter
--- OUTSIDE RECORDS SUMMARY | 2025-07-03 23:44 | XMS_ITS | Encounter Summary ---
Author Organization [employer] ([place], [place], [place], [place]) Address [address] [place] [address] Care Team Providers Care Temporary Receptionist Name Role Phone Niranjan Mccarty MD Primary Care Provider [phone] Encounter Details Date Type Department Care Team (Late st Contact Info) Description 06/13/2021 Transcribed Document [facility] [place] [facility] [place] [address] ProviderAkash MD [address] [place], [place] [address] Social History Tobacco Use Types Packs/Day Years [...] [facility] Discharge Note - EP Primary Ehs Specialist: PCP: Niranjan Chavira Consults: NONE History of [...] Normal range of motion. Integumentary: Warm, Dry, [place]. PPM site left SC dressing dry and [...] PCP in 5 - 7 days. Primary Ehs Specialist in [address] Dunn in 1 week for wound/device check and OK to resume Coumadin Patient has been instructed on and verbalized an understanding of the above discharge instructions. Plan has been discussed and is in agreement with Dr. Jose Luis Pryor, RN documenting for Dr. Amaya Electronically signed by [facility] Conversion Lead Systems Analyst Cerner at 03/07/2023 1:27 PM CDT documented in this encounter Plan of Treatment Upcoming Encounters Date Type Department Care Team (Late st Contact Info) Description 09/07/2025 10:45 AM EDT Office Visit [facility] Electrophysiology [address] [place] [phone] [place] [address] [place] [address] [address] [place], [place] [phone] documented as of this encounter Visit Diagnoses Not on filedocumented in this encounter Care Teams Temporary Receptionist Relationship Specialty Start Date End Date Niranjan Mccarty MD [address] [place] [address] PCP - General Adolescent Medicine 10/15/23 documented as of this encounter
--- OUTSIDE RECORDS SUMMARY | 2025-07-03 23:44 | XMS_ITS | Encounter Summary ---
Author Organization [employer] ([place], [place], [place], [place]) Address [address] [place] [address] Care Team Providers Care Manager Behavioral Name Role Phone Niranjan Mccarty MD Primary Care Provider [phone] Encounter Details Date Type Department Care Team (Late st Contact Info) Description 06/12/2021 Transcribed Document [facility] [place] [facility] Family Medicine [facility] [place] [address] ProviderAkash MD [address] [place], [place] [phone] Social History Tobacco Use Types Packs/Day Years [...] Daughter Legal Guardian : No Support Person/Patient Deicer Element Winder Machine : Yes Support Person/Pt Rep Name : daughter- sherley gómez Contact Password : Fan Support Person/Pt Rep Contact Information : sherley- [phone] Want Family/Rep/Phys Notified of Admit : No Emergency Contact #1 : NA Emergency Contact #1 Phone Number : NA Emergency Contact #1 Relationship : NA Emergency Contact #2 : NA Emergency Contact #2 Phone Number : NA Emergency Contact #2 Relationship : NA Information Obtained From : Patient Primary Language : Mauritanian Preferred Communication Mode : Verbal Communication Barrier : None Hand Coper Needed : Marilyn Ruvalcaba Non Emp Traveler [...] Scale Risk Level : 25-45 Medium Risk [place] Fall Interventions : Adequate lighting, Bed in [...] Source : Stated Height Entry Format : [place] Height, Feet : 5 ft(Converted to: 152 cm, 60 Inch) Height, Inches : 7 Inch(Converted to: 0 ft 7 Inch, 17.78 cm) Clinical Height : 170.18 cm Weight Source : Standing scale Weight Entry Format : [place] Clinical Dosing Weight : 65.91 kg Weight, Pounds : 145 lb Body Surface Area (BSA) : 1.77 m2 Body Mass Index : 22.8 kg/m2 [place] Body Weight : 61 kg Ramandeepmarine Marilyn [...] Reina Emp Traveler - 06/12/2021 23:10 EDT [place] Suicide Severity Rating Scale (C-SSRS) CSSRS Past [...] EDT Electronically signed by Sherri Sam Conversion Outside Sales Advertising Executive Cerner at 03/07/2023 1:26 PM CDT documented in this encounter Plan of Treatment Upcoming Encounters Date Type Department Care Team (Late st Contact Info) Description 09/07/2025 10:45 AM EDT Office Visit [facility] Electrophysiology [address] [place] [address] Adrienne Dunn MD [address] [place] [address] [address] [place] [address] documented as of this encounter Visit Diagnoses Not on filedocumented in this encounter Care Teams Manager Behavioral Relationship Specialty Start Date End Date Niranjan Mccarty MD [address] [facility] [address] [place] [address] PCP - General Adolescent Medicine 10/15/23 documented as of this encounter
--- OUTSIDE RECORDS SUMMARY | 2025-07-03 23:44 | XMS_ITS | Encounter Summary ---
Author Organization [employer] ([place], [place], [place], [place]) Address [address] [place] [address] Care Team Providers Care Link Trainer Operator Name Role Phone Niranjan Mccarty MD Primary Care Provider [phone] Encounter Details Date Type Department Care Team (Late st Contact Info) Description 06/12/2021 Transcribed Document [facility] [place] Family Medicine [facility] [place] [address] ProviderAkash MD [address] [place] [phone] Social History Tobacco Use Types Packs/Day Years [...] Description of Event : Report called to [facility]. Pt transferred to room 428 MIRTA CRUM RN - 06/12/2021 20:09 EDT Electronically signed by Cecy [facility] Conversion Life Skills Specialist Cerner at 03/07/2023 1:36 PM CDT documented in this encounter Plan of Treatment Upcoming Encounters Date Type Department Care Team (Late st Contact Info) Description 09/07/2025 10:45 AM EDT Office Visit [facility] Electrophysiology [address] [place] [address] Adrienne Dunn MD 1401 [facility] [address] [place], [place] [phone] documented as of this encounter Visit Diagnoses Not on filedocumented in this encounter Care Teams Link Trainer Operator Relationship Specialty Start Date End Date Niranjan Mccarty MD [address] [place] [address] PCP - General Adolescent Medicine 10/15/23 documented as of this encounter
--- OUTSIDE RECORDS SUMMARY | 2025-07-03 23:44 | XMS_ITS | Encounter Summary ---
Author Organization [employer] ([place], [place], [place], [place]) Address [address] [place] [address] Care Team Providers Care Can Slider Name Role Phone Niranjan Mccarty MD Primary Care Provider [phone] Encounter Details Date Type Department Care Team (Late st Contact Info) Description 06/12/2021 Transcribed Document [facility] [place] [address] [place] [address] ProviderAkash MD [address] [place], [place] [phone] Social History Tobacco Use Types Packs/Day Years [...] Source : Stated Height Entry Format : [place] Height, Feet : 5 ft(Converted to: 152 cm, 60 Inch) Height, Inches : 7 Inch(Converted to: 0 ft 7 Inch, 17.78 cm) Clinical Height : 170.18 cm Weight Source : Standing scale Weight Entry Format : [place] Clinical Dosing Weight : 65.91 kg Weight, Pounds : 145 lb Body Surface Area (BSA) : 1.77 m2 Body Mass Index : 22.8 kg/m2 [place] Body Weight : 61 kg Nory Farfan [...] Nory Farfan RN - 06/12/2021 12:53 EDT [place] Suicide Severity Rating Scale (C-SSRS) CSSRS Past [...] Daughter Legal Guardian : No Support Person/Patient Compensation Administrator : Yes Support Person/Pt Rep Name : daughter- sherley gómez Support Person/Pt Rep Contact Information : gordon [phone] Want Family/Rep/Phys Notified of Admit : No Emergency Contact #1 : NA Emergency Contact #1 Phone Number : NA Emergency Contact #1 Relationship : NA Emergency Contact #2 : NA Emergency Contact #2 Phone Number : NA Emergency Contact #2 Relationship : NA Information Obtained From : Patient Primary Language : Burmese Preferred Communication Mode : Verbal Communication Barrier : None Plastic Surgery Technician Needed : No Nory Farfan RN - [...] Scale Risk Level : 0-24 Low Risk [place] Fall Interventions : Adequate lighting, Bed in [...] Description 09/07/2025 10:45 AM EDT [facility] Electrophysiology [address] [place] [address] Adrienne Dunn MD [address] [place] [address] [address] [place] [address] documented as of this encounter Visit Diagnoses Not on filedocumented in this encounter Care Teams Can Slider Relationship Specialty Start Date End Date Niranjan Mccarty MD [address] [place] [address] PCP - General Adolescent Medicine 10/15/23 documented as of this encounter
--- OUTSIDE RECORDS SUMMARY | 2025-07-03 23:44 | XMS_ITS | Encounter Summary ---
Author Organization [employer] ([place], [place], [place], [place]) Address [address] [place] [address] Care Team Providers Care Payroll Master Name Role Phone Niranjan Mccarty MD Primary Care Provider [phone] Encounter Details Date Type Department Care Team (Late st Contact Info) Description 06/12/2021 Transcribed Document [facility] [place] [address] ProviderAkash MD [address] [place] [phone] Social History Tobacco Use Types Packs/Day Years [...] 09/07/2025 10:45 AM EDT Office Visit [facility] Electrophysiology [address] [place] [address] Adrienne Dunn MD 1401 [facility] [address] [place], [place] [phone] documented as of this encounter Visit Diagnoses Not on filedocumented in this encounter Care Teams Payroll Master Relationship Specialty Start Date End Date Niranjan Mccarty MD [address] [place] [address] PCP - General Adolescent Medicine 10/15/23 documented as of this encounter
--- OUTSIDE RECORDS SUMMARY | 2025-07-03 23:44 | XMS_ITS | Encounter Summary ---
Author Organization [employer] ([place], [place], [place], [place]) Address [address] [place] [address] Care Team Providers Care Transmission Technician Name Role Phone Niranjan Mccarty MD Primary Care Provider [phone] Encounter Details Date Type Department Care Team (Late st Contact Info) Description 06/12/2021 Transcribed Document [facility] [place] Family Medicine [facility] [place] [address] ProviderAkash MD [address] [place] [phone] Social History Tobacco Use Types Packs/Day Years [...] Age: 85 Years Sex: Female : 1935 Tool Engine Lathe Set Up Operator: Julián Amaya MD Indication: dual chamber pacemaker [...] generator was a Medtronic model [id number] SN [id number] that replaced the old generator. Complications: No [...] Office Visit [facility] Electrophysiology [address] [place] [address] Adrienne Dunn MD [address] [facility] [address] [place], [place] [phone] documented as of this encounter Visit Diagnoses Not on filedocumented in this encounter Care Teams Transmission Technician Relationship Specialty Start Date End Date Niranjan Mccarty MD [address] [place] [address] PCP - General Adolescent Medicine 10/15/23 documented as of this encounter
[2025-07-04 00:04] LABS: INR 2.72 (0.9-1.1); Prothrombin Time 28.0 seconds (10.1-12.5)
--- NOTE | 2025-07-04 00:36 | PC.NURSE ---
called pts brother to inform of pickup
[2025-07-04 01:27] VITALS: BP 155/73; PULSE 61; RESP 16; TEMP 36.8; O2SAT 98
== END 2025-07-04 01:31 | disposition home or self-care (01) ==
PROVIDERS: Emergency Provider Emergency Medicine; PCP Nurse Practitioner Family
DX: L76.21 Postprocedural hemorrhage of skin and subcutaneous tissue following a dermatologic procedure (principal); Z79.01 Long term (current) use of anticoagulants
CPT/HCPCS: 85610; 99282; 99283

== ENCOUNTER 2025-07-26 11:47 | Outpatient (CLI) | payer MEDICARE, OTHER, SELFPAY ==
--- OUTSIDE RECORDS SUMMARY | 2025-07-26 11:53 | XMS_ITS | Encounter Summary ---
Author Organization [employer] ([place], [place], [place], [place]) Address [address] [place] [address] Care Team Providers Care Mercerizer Machine Operator Name Role Phone Niranjan Mccarty MD Primary Care Provider [phone] Encounter Details Date Type Department Care Team (Late st Contact Info) Description 10/12/2019 Transcribed Document [facility] [place] [address] [place] [address] ProviderAkash MD [address] [place], [place] [phone] Social History Tobacco Use Types Packs/Day Years Used Date Smoking Tobacco: Never Assessed Comments Unknown Sex and Gender Information Value Date Recorded Sex Assigned at Not on file Legal Sex Female 1:32 PM CDT Gender Identity Not on file Sexual Orientation Not on file documented as of this encounter Miscellaneous Notes * [employer] Conversion Note - Akash Vega MD - 10/12/2019 9:39 AM SELF STORAGE MANAGER Stroke/Warfarin Instructions Entered On: 10/12/2019 9:39 EST [...] - 10/12/2019 9:39 EST Electronically signed by [facility] Conversion Human Resources Operations Specialist Cerner at 03/07/2023 1:37 PM CDT documented in this encounter Plan of Treatment Upcoming Encounters Date Type Department Care Team (Late st Contact Info) Description 09/07/2025 10:45 AM EDT Office Visit [facility] Electrophysiology [address] [place] [phone] Adrienne Dunn MD [address] [place] [address] [address] [place] [phone] documented as of this encounter Visit Diagnoses Not on filedocumented in this encounter Care Teams Mercerizer Machine Operator Relationship Specialty Start Date End Date Niranjan Mccarty MD [address] [place] [address] PCP - General Adolescent Medicine 10/15/23 documented as of this encounter
--- OUTSIDE RECORDS SUMMARY | 2025-07-26 11:53 | XMS_ITS | Encounter Summary ---
Author Organization [employer] ([place], [place], [place], [place]) Address [address] [place] [address] Care Team Providers Care Email Designer Name Role Phone Niranjan Mccarty MD Primary Care Provider [phone] Encounter Details Date Type Department Care Team (Late st Contact Info) Description 10/11/2019 Transcribed Document [facility] [place] [facility] [place] [address] ProviderAkash MD [address] [place] [id number] Social History Tobacco Use Types Packs/Day Years Used Date Smoking Tobacco: Never Assessed Comments Unknown Sex and Gender Information Value Date Recorded Sex Assigned at Not on file Legal Sex Female 1:32 PM CDT Gender Identity Not on file Sexual Orientation Not on file documented as of this encounter Miscellaneous Notes * Cerner Conversion Note - Historical ProviderMD - 10/11/2019 12:11 PM FLUXER Attempt to Treat, PT Entered On: 10/11/2019 [...] 10/11/2019 12:11 EST Electronically signed by [facility] Conversion Manager Of Financial Planning Cerner at 03/07/2023 1:24 PM CDT documented in this encounter Plan of Treatment Upcoming Encounters Date Type Department Care Team (Late st Contact Info) Description 09/07/2025 10:45 AM EDT Office Visit [facility] Electrophysiology [address] [place] [address] Adrienne Dunn MD [address] [facility] [address] [place], [place] [phone] documented as of this encounter Visit Diagnoses Not on filedocumented in this encounter Care Teams Email Designer Relationship Specialty Start Date End Date Niranjan Mccarty MD [address] [place] [address] PCP - General Adolescent Medicine 10/15/23 documented as of this encounter
--- OUTSIDE RECORDS SUMMARY | 2025-07-26 11:53 | XMS_ITS | Encounter Summary ---
Author Organization [employer] ([place], [place], [place], [place]) Address [address] [place] [address] Care Team Providers Care Records Management Clerk Name Role Phone Niranjan Mccarty MD Primary Care Provider [phone] Encounter Details Date Type Department Care Team (Late st Contact Info) Description 10/10/2019 Transcribed Document [facility] Family Medicine [address] [place] [address] ProviderAkash MD [address] [place], [place] [phone] Social History Tobacco Use Types Packs/Day Years Used Date Smoking Tobacco: Never Assessed Comments Unknown Sex and Gender Information Value Date Recorded Sex Assigned at Not on file Legal Sex Female 1:32 PM CDT Gender Identity Not on file Sexual Orientation Not on file documented as of this encounter Miscellaneous Notes * Cerner Conversion Note - Akash Vega MD - 10/10/2019 10:57 AM SALES ORDER ADMINISTRATOR Height and Weight, Routine Entered On: 10/11/2019 4:17 EST Performed On: 10/10/2019 10:57 EST by MEKA MANSFIELD RN Height and Weight, Routine Routine Weight Source : Standing scale Routine Weight Entry Format : Melrude Routine Weight, Pounds : 141 lb Routine Weight, Ounces : 7 oz Routine Weight Calculation : 64.29 kg Height Source : Stated Height Entry Format : Melrude Height, Feet : 5 ft Height, Inches [...] Office Visit [facility] Electrophysiology [address] [place] [address] Adrienne Dunn MD [address] [place] [address] [address] [place] [phone] documented as of this encounter Visit Diagnoses Not on filedocumented in this encounter Care Teams Records Management Clerk Relationship Specialty Start Date End Date Niranjan Mccarty MD [address] [place] [address] PCP - General Adolescent Medicine 10/15/23 documented as of this encounter
--- OUTSIDE RECORDS SUMMARY | 2025-07-26 11:53 | XMS_ITS | Encounter Summary ---
Author Organization [employer] ([place], [place], [place], [place]) Address [address] [place] [address] Care Team Providers Care Service Learning Coordinator Name Role Phone Niranjan Mccarty MD Primary Care Provider [phone] Encounter Details Date Type Department Care Team (Late st Contact Info) Description 10/12/2019 Transcribed Document [facility] Cardiology [address] [place] [phone] [place] [address] [place] [address] [address] [place] [phone] Social History Tobacco Use Types Packs/Day Years [...] 1935 Associated Diagnoses: None Author: ADI DRIVER, ORACLE WEBCENTER CONSULTANT-INT Basic Information PCP: NIRANJAN MORRIS MD Legal Support Specialist: Cole SAMUEL Subjective NAD. No complaints of [...] Normal strength, No deformity. Integumentary: Warm, Dry, [place], Intact, No rash. Neurologic: Alert, Oriented, No [...] Office Visit [facility] Electrophysiology [address] [place] [phone] Adrienne Dunn MD [address] [place] [address] [address] [place] [phone] documented as of this encounter Visit Diagnoses Not on filedocumented in this encounter Care Teams Service Learning Coordinator Relationship Specialty Start Date End Date Niranjan Mccarty MD [address] [place] [address] PCP - General Adolescent Medicine 10/15/23 documented as of this encounter
--- OUTSIDE RECORDS SUMMARY | 2025-07-26 11:53 | XMS_ITS | Encounter Summary ---
Author Organization [employer] ([place], [place], [place], [place]) Address [address] [place] [address] Care Team Providers Care Lead Python Developer Name Role Phone Niranjan Mccarty MD Primary Care Provider [phone] Encounter Details Date Type Department Care Team (Late Contact Info) Description 10/09/2019 Transcribed Document [facility] [place] Medicine [facility] [place] [address] ProviderAkash MD [address] [place] [address] Social History Tobacco Use Types Packs/Day [...] Akash Vega MD - 10/09/2019 9:37 PM MECHANIC WELDER TRUCK DRIVER Pain Assessment Entered On: 10/09/2019 23:44 EST Performed On: 10/09/2019 23:54 EST by MEKA MASNFIELD RN Intervention Information: traMADol Performed by MEKA [...] Visit [facility] Electrophysiology [address] [place] [address] Adrienen Dunn MD [address] [facility] [address] [place], [place] [phone] documented as of this encounter Visit Diagnoses Not on filedocumented in this encounter Care Teams Lead Python Developer Relationship Specialty Start Date End Date Niranjan Mccarty MD [address] [place] [address] PCP - General Adolescent Medicine 10/15/23 documented as of this encounter
--- OUTSIDE RECORDS SUMMARY | 2025-07-26 11:53 | XMS_ITS | Encounter Summary ---
Author Organization [employer] ([place], [place], [place], [place]) Address [address] [place] [address] Care Team Providers Care Pre Algebra Teacher Name Role Phone Niranjan Mccarty MD Primary Care Provider [phone] Encounter Details Date Type Department Care Team (Late st Contact Info) Description 10/11/2019 Transcribed Document [facility] [place] [facility] [place] [address] ProviderAkash MD [address] [place] [address]271 Social History Tobacco Use Types Packs/Day Years Used Date Smoking Tobacco: Never Assessed Comments Unknown Sex and Gender Information Value Date Recorded Sex Assigned at Not on file Legal Sex Female 1:32 PM CDT Gender Identity Not on file Sexual Orientation Not on file documented as of this encounter Miscellaneous Notes * Cerner Conversion Note - Akash Vega MD - 10/11/2019 9:21 AM DIRECTOR OF SCIENCE Patient: TRAN PEGUERO Age: 83 years Sex: [...] Office Visit [facility] Electrophysiology [address] [place] [address] Adrienne Dunn MD [address] [place] [address] [address] [place] [address] documented as of this encounter Visit Diagnoses Not on filedocumented in this encounter Care Teams Pre Algebra Teacher Relationship Specialty Start Date End Date Niranjan Mccarty MD [address] [place] [address] PCP - General Adolescent Medicine 10/15/23 documented as of this encounter
--- OUTSIDE RECORDS SUMMARY | 2025-07-26 11:53 | XMS_ITS | Encounter Summary ---
Author Organization [employer] ([place], [place], [place], [place]) Address [address] [place] [address] Care Team Providers Care Auto Design Checker Name Role Phone Niranjan Mccarty MD Primary Care Provider [phone] Encounter Details Date Type Department Care Team (Late st Contact Info) Description 10/10/2019 Transcribed Document [facility] [place] Family Medicine [facility] [place] [address] ProviderAkash MD [address] [place] [id number] Social History Tobacco Use Types Packs/Day Years Used Date Smoking Tobacco: Never Assessed Comments Unknown Sex and Gender Information Value Date Recorded Sex Assigned at Not on file Legal Sex Female 1:32 PM CDT Gender Identity Not on file Sexual Orientation Not on file documented as of this encounter Miscellaneous Notes * Cerner Conversion Note - Akash Vega MD - 10/10/2019 8:35 AM LINE ERECTOR Patient: TRAN PEGUERO Age: 83 Years Sex: [...] Lymph # 1.79 x10(3)/uL 10/09/2019 21:53 EST [place] % 10.3 % (High) 10/10/2019 02:57 EST [place] % 8.0 % 10/09/2019 21:53 EST [place] # 0.75 K/uL 10/10/2019 02:57 EST [place] # 0.59 K/uL 10/09/2019 21:53 EST Eos [...] 10/10/2019 02:57 EST Electronically signed by Interface, [facility] Conversion Stripping Cutter And Winder Cerner at 03/07/2023 1:54 PM CDT documented in this encounter Plan of Treatment Upcoming Encounters Date Type Department Care Team (Late st Contact Info) Description 09/07/2025 10:45 AM EDT Office Visit [facility] Electrophysiology [address] [place] [address] Adrienne Dunn MD [address] [place] [address] [address] [place] [address] documented as of this encounter Visit Diagnoses Not on filedocumented in this encounter Care Teams Auto Design Checker Relationship Specialty Start Date End Date Niranjan Mccarty MD [address] [place] [address] PCP - General Adolescent Medicine 10/15/23 documented as of this encounter
--- OUTSIDE RECORDS SUMMARY | 2025-07-26 11:53 | XMS_ITS | Encounter Summary ---
Author Organization [employer] ([place], [place], [place], [place]) Address [address] [place] [address] Care Team Providers Care Boring Mill Set Up Operator Vertical Name Role Phone Niranjan Mccarty MD Primary Care Provider [phone] Encounter Details Date Type Department Care Team (Late st Contact Info) Description 10/09/2019 Transcribed Document [facility] [place] Family Medicine [address] [place] [address] ProviderAkash MD [address] [place] [address] Social History Tobacco Use Types [...] Akash Vega MD - 10/09/2019 9:00 PM CUSTOMER RECORDS DIVISION SUPERVISOR Admission History, Adult Entered On: 10/09/2019 21:02 EST Performed On: 10/09/2019 21:00 EST by MEKA MANSFIELD RN Height and Weight, Clinical Dosing Height Source : Stated Height Entry Format : [place] Height, Feet : 5 ft(Converted to: 152 cm, 60 Inch) Height, Inches : 5 Inch(Converted to: 0 ft 5 Inch, 12.70 cm) Clinical Height : 165.1 cm Weight Source : Bed scale Weight Entry Format : [place] Clinical Dosing Weight : 65.51 kg Weight, Pounds : 144 lb Weight, Ounces : 2 oz Body Surface Area (BSA) : 1.72 m2 Body Mass Index : 24 kg/m2 [place] Body Weight : 57 kg MEKA MANSFIELD [...] [facility] Electrophysiology [address] [place] [phone] Adrienne Dunn MD [address] [facility] [address] [place] [address] documented as of this encounter Visit Diagnoses Not on filedocumented in this encounter Care Teams Boring Mill Set Up Operator Vertical Relationship Specialty Start Date End Date Niranjan Mccarty MD [address] [place] [address] PCP - General Adolescent Medicine 10/15/23 documented as of this encounter
--- OUTSIDE RECORDS SUMMARY | 2025-07-26 11:53 | XMS_ITS | Encounter Summary ---
Author Organization [employer] ([place], [place], [place], [place]) Address [address] [place] [address] Care Team Providers Care Photo Technologist Name Role Phone Niranjan Mccarty MD Primary Care Provider [phone] Encounter Details Date Type Department Care Team (Late st Contact Info) Description 10/11/2019 Transcribed Document [facility] Cardiology [address] [place] [address] [place] [address] [place] [address] [address] [place] [address] Social History Tobacco Use Types Packs/Day Years [...] MD-CAR Basic Information PCP: NIRANJAN MORRIS MD Edge Polisher: Cole SAMUEL Subjective no chest pain. Health [...] of motion, Normal strength. Integumentary: Warm, Dry, [place]. Neurologic: Alert, Oriented. Psychiatric: Cooperative, Appropriate mood [...] Office Visit [facility] Electrophysiology [address] [place] [address] Adrienne Dunn MD [address] [facility] [address] [place] [address] documented as of this encounter Visit Diagnoses Not on filedocumented in this encounter Care Teams Photo Technologist Relationship Specialty Start Date End Date Niranjan Mccarty MD [address] [place] [address] PCP - General Adolescent Medicine 10/15/23 documented as of this encounter
--- OUTSIDE RECORDS SUMMARY | 2025-07-26 11:53 | XMS_ITS | Encounter Summary ---
Author Organization [employer] ([place], [place], [place], [place]) Address [address] [place] [address] Care Team Providers Care Military Education Coordinator Name Role Phone Niranjan Mccarty MD Primary Care Provider [phone] Encounter Details Date Type Department Care Team (Late st Contact Info) Description 10/12/2019 Transcribed Document [facility] [place] [facility] [address] ProviderAkash MD [address] [place] [address] Social History Tobacco Use Types Packs/Day [...] Akash Vega MD - 10/12/2019 5:15 PM CHILDRENS CLUB ATTENDANT [facility] [place], [place] [id number] TRAN PEGUERO KELLY :1935 Visit Time:10/09/2019 Your [...] Call for follow up appointment Where: [address] [facility] [address] [place] [address]- Follow Up with VIRY ESTRADA MD-CAR When Within 1 to 2 weeks Comments Call for follow up appointment Where: [address] [facility] [address] [place] [address]- Follow Up with NIRANJAN MORRIS MD-[facility] When Within 2 to 4 weeks Where: [address] Warfarin Instructions Indication for Warfarin Anticoagulation: [...] you start to feel better. ??? Take cyax-gie-nxfwqtn and prescription medicines only as told by [...] 04/21/2009 Document Revised: 07/28/2017 Document Reviewed: 07/28/2017 [employer] Interactive Patient Education ?? 2019 [employer]. Emergency Awareness and Preventative Care STROKE is [...] Assistance with quitting is available by contacting 7-886-HBSC-NOW. This is a free resource providing counseling, [...] range between ( 0.0 and 7.0 ) [place] #: 0.75 K/uL -- Normal range between ( 0.16 and 1.00 ) [place] #: 0.20 x10(3)/uL -- Normal range between ( 0.00 and 0.80 ) [place] %: 10.3 % -- Normal range between [...] was given the opportunity to ask questions. Patient/Internal Grinding Machine Operator Name: Patient/Internal Grinding Machine Operator Signature: Relationship to Patient: Clinician/Hospital Internal Grinding Machine Operator Signature: Date: documented in this encounter Plan of Treatment Upcoming Encounters Date Type Department Care Team (Late st Contact Info) Description 09/07/2025 10:45 AM EDT Office Visit [facility] Electrophysiology [address] [place] [address] Adrienne Dunn MD [address] [facility] [address] [place] [id number] documented as of this encounter Visit Diagnoses Not on filedocumented in this encounter Care Teams Military Education Coordinator Relationship Specialty Start Date End Date Niranjan Mccarty MD [address] [place] [address] PCP - General Adolescent Medicine 10/15/23 documented as of this encounter
--- OUTSIDE RECORDS SUMMARY | 2025-07-26 11:53 | XMS_ITS | Encounter Summary ---
Author Organization [employer] ([place], [place], [place], [place]) Address [address] [place] [address] Care Team Providers Care Commercial Fishing Vessel Operator Name Role Phone Niranjan Mccarty MD Primary Care Provider [phone] Encounter Details Date Type Department Care Team (Late st Contact Info) Description 10/11/2019 Transcribed Document [facility] [place] Family Medicine [address] [place] [address] ProviderAkash MD [address] [place], [place] [id number] Social History Tobacco Use Types Packs/Day Years Used Date Smoking Tobacco: Never Assessed Comments Unknown Sex and Gender Information Value Date Recorded Sex Assigned at Not on file Legal Sex Female 1:32 PM CDT Gender Identity Not on file Sexual Orientation Not on file documented as of this encounter Miscellaneous Notes * Cerner Conversion Note - Akash Vega MD - 10/11/2019 9:00 AM PRINCIPAL MECHANICAL ENGINEER Pain Assessment Entered On: 10/11/2019 16:45 EST [...] Office Visit [facility] Electrophysiology [address] [place] [address] Adrienne Dunn MD [address] [place] [address] [address] [place] [address] documented as of this encounter Visit Diagnoses Not on filedocumented in this encounter Care Teams Commercial Fishing Vessel Operator Relationship Specialty Start Date End Date Niranjan Mccarty MD [address] [place] [address] PCP - General Adolescent Medicine 10/15/23 documented as of this encounter
--- OUTSIDE RECORDS SUMMARY | 2025-07-26 11:53 | XMS_ITS | Encounter Summary ---
Author Organization [employer] ([place], [place], [place], [place]) Address [address] [place] [address] Care Team Providers Care Networks Software Consultant Name Role Phone Niranjan Mccarty MD Primary Care Provider [phone] Encounter Details Date Type Department Care Team (Late st Contact Info) Description 10/09/2019 Transcribed Document [facility] [place] [facility] [place] [address] ProviderAkash MD [address] [place] [address] Social History Tobacco Use Types Packs/Day Years Used Date Smoking Tobacco: Never Assessed Comments Unknown Sex and Gender Information Value Date Recorded Sex Assigned at Not on file Legal Sex Female 1:32 PM CDT Gender Identity Not on file Sexual Orientation Not on file documented as of this encounter Miscellaneous Notes * Cerner Conversion Note - Akash Vega MD - 10/09/2019 9:22 PM FLIGHT ENGINEER MANAGER Patient: TRAN PEGUERO Age: 83 Years Sex: Female : 1935 Chief Complaint Chest pain Primary Care Provider NIRANJAN MORRIS MD-[facility] History of Present Illness Patient is an 83-year-old female with past medical history of hypertension, hyperlipidemia, atrial fibrillation, SSS status post pacemaker placement, chronic anticoagulation with Coumadin, COPD on home oxygen, gastric ulcer who presented to [facility] ER today with complaints of [...] any, fever or chills. Lab workup at [facility] showed WBC count 5.6, hemoglobin [...] [facility] by her marketing services vice president here. Review of Systems Pertinent positives and [...] 09/07/2025 10:45 AM EDT Office Visit [address] [address] Adrienne Dunn MD [address] [facility] [address] [place], [place] [id number] documented as of this encounter Visit Diagnoses Not on filedocumented in this encounter Care Teams Networks Software Consultant Relationship Specialty Start Date End Date Niranjan Mccarty MD [address] [place] [address] PCP - General Adolescent Medicine 10/15/23 documented as of this encounter
--- OUTSIDE RECORDS SUMMARY | 2025-07-26 11:53 | XMS_ITS | Encounter Summary ---
Author Organization [employer] ([place], [place], [place], [place]) Address [address] [place] [address] Care Team Providers Care Fisheries Management Biologist Name Role Phone Niranjan Mccarty MD Primary Care Provider [phone] Encounter Details Date Type Department Care Team (Late st Contact Info) Description 10/09/[address] [facility] [place] Family [place] [facility] [place] [address] ProviderAkash MD [address] [place] [address] Social History Tobacco Use Types Packs/Day [...] Akash Vega MD - 10/09/2019 9:38 PM ACADEMIC AFFAIRS ASSISTANT Education-Wound Care Entered On: 10/09/2019 23:43 EST Performed On: 10/09/2019 21:38 EST by MEKA MANSFIELD RN Teaching/Learning Assessment Barriers To Learning : None evident Individuals Taught : Patient Readiness to Learn : Cooperative Learning Style Preferences Patient : Verbal explanation Learning Style Preferences Family : Verbal explanation MEKA MANSFIELD RN - 10/09/2019 23:43 EST Electronically signed by Cecy [facility] Conversion Air Technician Cerner at 03/07/2023 1:41 PM CDT documented in this encounter Plan of Treatment Upcoming Encounters Date Type Department Care Team (Late st Contact Info) Description 09/07/2025 10:45 AM EDT Office Visit [facility] Electrophysiology [address] [place] [phone] Adrienne Dunn MD [address] [facility] [address] [place], [place] [phone] documented as of this encounter Visit Diagnoses Not on filedocumented in this encounter Care Teams Fisheries Management Biologist Relationship Specialty Start Date End Date Niranjan Mccarty MD [address] [place] [address] PCP - General Adolescent Medicine 10/15/23 documented as of this encounter
--- OUTSIDE RECORDS SUMMARY | 2025-07-26 11:53 | XMS_ITS | Encounter Summary ---
Author Organization [employer] ([place], [place], [place], [place]) Address [address] [place] [address] Care Team Providers Care Silk Opener Name Role Phone Niranjan Mccarty MD Primary Care Provider [phone] Encounter Details Date Type Department Care Team (Late st Contact Info) Description 10/11/2019 Transcribed Document [facility] [place] Family Medicine [facility] [place] [address] ProviderAkash MD [address] [place] [address] Social History Tobacco Use Types Packs/Day [...] Akash Vega MD - 10/11/2019 8:57 AM CHIEF DOG LICENSE INSPECTOR Event Note Entered On: 10/11/2019 8:57 EST [...] EST Electronically signed by Sherri Sam Conversion Men'S Custom Hair Piece Consultant Cerner at 03/07/2023 1:26 PM CDT documented in this encounter Plan of Treatment Upcoming Encounters Date Type Department Care Team (Late st Contact Info) Description 09/07/2025 10:45 AM EDT Office Visit [facility] Electrophysiology [address] [place] [address] Adrienne Dunn MD [address] [facility] [address] [place] [address] documented as of this encounter Visit Diagnoses Not on filedocumented in this encounter Care Teams Silk Opener Relationship Specialty Start Date End Date Niranjan Mccarty MD [address] [place] [address] PCP - General Adolescent Medicine 10/15/23 documented as of this encounter
--- OUTSIDE RECORDS SUMMARY | 2025-07-26 11:53 | XMS_ITS | Encounter Summary ---
Author Organization [employer] ([place], [place], [place], [place]) Address [address] [place] [address] Care Team Providers Care Claims Attorney Name Role Phone Niranjan Mccarty MD Primary Care Provider [phone] Encounter Details Date Type Department Care Team (Late st Contact Info) Description 10/09/2019 Transcribed Document [facility] [place] Family [place] [facility] [place] [address] ProviderAkash MD [address] [place] [phone] Social History Tobacco Use Types Packs/Day Years Used Date Smoking Tobacco: Never Assessed Comments Unknown Sex and Gender Information Value Date Recorded Sex Assigned at Not on file Legal Sex Female 1:32 PM CDT Gender Identity Not on file Sexual Orientation Not on file documented as of this encounter Miscellaneous Notes * Cerner Conversion Note - Akash Vega MD - 10/09/2019 9:18 PM STRETCH BOX TENDER Evaluation, Physical Therapy Entered On: 10/10/2019 10:57 [...] VAN MCKEON PT - 10/10/2019 10:39 EST [facility] Topics Physical Therapy Education Grid Role [...] VAN MCKEON, PT - 10/10/2019 10:39 EST Inspector Production Plastic Parts Goals Mobility/Bed Mobility LTG PT Grid Goal [...] with small steps. Patient also trans[place] [facility] with supervision and required extended time. Patient [...] VAN MCKEON, PT - 10/10/2019 10:39 EST Christie PT Charges PT Therap. Exercise 15 min : 1 PT Ther Activities Ea 15 Min : 1 PT Eval Moderate Complexity : 1 VAN MCKEON, PT - 10/10/2019 10:39 EST Electronically signed by [facility] Conversion Meat Manager Cerner at 03/07/2023 1:23 PM CDT documented in this encounter Plan of Treatment Upcoming Encounters Date Type Department Care Team (Late st Contact Info) Description 09/07/2025 10:45 AM EDT Office Visit [facility] Electrophysiology [address] [place] [address] Adrienne Dunn MD [address] [facility] [address] [place] [address] documented as of this encounter Visit Diagnoses Not on filedocumented in this encounter Care Teams Claims Attorney Relationship Specialty Start Date End Date Niranjan Mccarty MD [address] [place] [address] PCP - General Adolescent Medicine 10/15/23 documented as of this encounter
--- OUTSIDE RECORDS SUMMARY | 2025-07-26 11:53 | XMS_ITS | Encounter Summary ---
Author Organization [employer] ([place], [place], [place], [place]) Address [address] [place] [address] Care Team Providers Care Mold Preparer Name Role Phone Niranjan Mccarty MD Primary Care Provider [phone] Encounter Details Date Type Department Care Team (Late st Contact Info) Description 10/12/2019 Transcribed Document [place] Family [facility] [place] [address] ProviderAkash MD [address] [place], [place] [phone] Social History Tobacco Use Types Packs/Day Years Used Date Smoking Tobacco: Never Assessed Comments Unknown Sex and Gender Information Value Date Recorded Sex Assigned at Not on file Legal Sex Female 1:32 PM CDT Gender Identity Not on file Sexual Orientation Not on file documented as of this encounter Miscellaneous Notes * Cerner Conversion Note - Akash ProviderMD - 10/12/2019 9:00 AM TRIMMER OPERATOR Pain Assessment Entered On: 10/12/2019 11:21 EST [...] Description 09/07/2025 10:45 AM EDT Office Visit [address] [address] Adrienne Dunn MD [address] [place] [address] [address] [place] [phone] documented as of this encounter Visit Diagnoses Not on filedocumented in this encounter Care Teams Mold Preparer Relationship Specialty Start Date End Date Niranjan Mccarty MD [address] [place] [address] PCP - General Adolescent Medicine 10/15/23 documented as of this encounter
--- OUTSIDE RECORDS SUMMARY | 2025-07-26 11:53 | XMS_ITS | Encounter Summary ---
Author Organization [employer] ([place], [place], [place], [place]) Address [address] [place] [address] Care Team Providers Care Braiding Machine Operator Name Role Phone Niranjan Mccarty MD Primary Care Provider [phone] Encounter Details Date Type Department Care Team (Late st Contact Info) Description 10/13/2019 Transcribed Document [facility] [place] Family Medicine [facility] [place] [address] ProviderAkash MD [address] [place] [phone] Social History Tobacco Use Types Packs/Day Years Used Date Smoking Tobacco: Never Assessed Comments Unknown Sex and Gender Information Value Date Recorded Sex Assigned at Not on file Legal Sex Female 1:32 PM CDT Gender Identity Not on file Sexual Orientation Not on file documented as of this encounter Miscellaneous Notes * Cerner Conversion Note - Historical ProviderMD - 10/13/2019 8:26 AM GRINDER NEEDLE TIP Discharge Summary, PT Entered On: 10/13/2019 8:27 [...] WILLIE GOLDEN, PT - 10/13/2019 8:26 EST Ironworker Machine Operator Goals Mobility/Bed Mobility LTG PT Grid Goal [...] - 10/13/2019 8:26 EST Electronically signed by [facility] Conversion Organ Tuner Electronic Cerner at 03/07/2023 1:24 PM CDT documented in this encounter Plan of Treatment Upcoming Encounters Date Type Department Care Team (Late st Contact Info) Description 09/07/2025 10:45 AM EDT Office Visit [facility] Electrophysiology [address] [place], [place] [phone] Adrienne Dunn MD [address] [place] [address] [address] [place] [address] documented as of this encounter Visit Diagnoses Not on filedocumented in this encounter Care Teams Braiding Machine Operator Relationship Specialty Start Date End Date Niranjan Mccarty MD [address] [place] [address] PCP - General Adolescent Medicine 10/15/23 documented as of this encounter
--- OUTSIDE RECORDS SUMMARY | 2025-07-26 11:53 | XMS_ITS | Encounter Summary ---
Author Organization [employer] ([place], [place], [place], [place]) Address [address] [place] [address] Care Team Providers Care Paper Production Engineer Name Role Phone Niranjan Mccarty MD Primary Care Provider [phone] Encounter Details Date Type Department Care Team (Late st Contact Info) Description 10/11/2019 Transcribed Document [facility] [place] [facility] [place] [address] ProviderAkash MD [address] [place], [place] [id number] Social History Tobacco Use Types Packs/Day Years Used Date Smoking Tobacco: Never Assessed Comments Unknown Sex and Gender Information Value Date Recorded Sex Assigned at Not on file Legal Sex Female 1:32 PM CDT Gender Identity Not on file Sexual Orientation Not on file documented as of this encounter Miscellaneous Notes * Cerner Conversion Note - Akash Vega MD - 10/11/2019 3:28 PM CLINIC DIRECTOR Initial Discharge Planning Entered On: 10/11/2019 15:33 EST Performed On: 10/11/2019 15:28 EST by MEAGHAN DIXON Rn-Service Desk Associate Initial Assessment I Previously Documented Living Environment : No qualifying data available. Living Situation : Home Patient Lives With : Spouse Emergency Contact #1 : Sandee Emergency Contact #1 Emergency Contact #1 Relationship : daughter Emergency Contact #2 : Dana Emergency Contact #2 Emergency Contact #2 Relationship : sister in law Medical Durable Power of Supply Chain Generalist Name : Yes Legal Guardian : No MEAGHAN DIXON Rn-Service Desk Associate - 10/11/2019 15:28 EST Initial Assessment II Sensory and Motor Deficits : None Deficit Description : however, says she has a transport chair. MEAGHAN DIXON Rn-Service Desk Associate - 10/11/2019 15:28 EST Discharge Needs I Anticipated Discharge Date : 10/14/2019 EST Current Home Treatment/Equipment : Current Home Treatment/Equipment No qualifying data available. Post Acute/Home Treatments : None Documentation Status Complete : Yes MEAGHAN DIXON Rn-Service Desk Associate - 10/11/2019 15:28 EST Discharge Needs II Professional Skilled Services : Professional Skilled Services No qualifying data available. Needs Assistance with Transportation : Maybe Discharge Options Discussed with Patient : Home Health, Outpatient services MEAGHAN DIXON Rn-Service Desk Associate - 10/11/2019 15:28 EST Narrative Note Narrative Note : RRS: Low 34 RN casde sales and business development manager met with pt at the bedside. [...] portable oxygen tank at dc. MEAGHAN DIXON Rn-Service Desk Associate - 10/11/2019 15:28 EST documented in this encounter Plan of Treatment Upcoming Encounters Date Type Department Care Team (Late st Contact Info) Description 09/07/2025 10:45 AM EDT Office Visit [facility] Electrophysiology [address] [place] [address] Adrienne Dunn MD [address] [facility] [address] [place] [address] documented as of this encounter Visit Diagnoses Not on filedocumented in this encounter Care Teams Paper Production Engineer Relationship Specialty Start Date End Date Niranjan Mccarty MD [address] [place] [address] PCP - General Adolescent Medicine 10/15/23 documented as of this encounter
--- OUTSIDE RECORDS SUMMARY | 2025-07-26 11:53 | XMS_ITS | Encounter Summary ---
Author Organization [employer] ([place], [place], [place], [place]) Address [address] [place] [address] Care Team Providers Care Etcher Hand Name Role Phone Niranjan Mccarty MD Primary Care Provider [phone] Encounter Details Date Type Department Care Team (Late st Contact Info) Description 10/12/2019 Transcribed Document [facility] [place] [address] ProviderAkash MD [address] [place] [id number] Social History Tobacco Use Types Packs/Day Years Used Date Smoking Tobacco: Never Assessed Comments Unknown Sex and Gender Information Value Date Recorded Sex Assigned at Not on file Legal Sex Female 1:32 PM CDT Gender Identity Not on file Sexual Orientation Not on file documented as of this encounter Miscellaneous Notes * Cerner Conversion Note - Akash Vega MD - 10/12/2019 3:47 PM HEEL FORMER Final Discharge Planning Entered On: 10/12/2019 15:47 [...] : Yes Discharge To Care Management : Home/Residential/Penitentiary or Self Care -01 CATHERINE LOZANO RN-Care Management - 10/12/2019 15:47 EST Final Narrative Note Final Narrative Note : Pt to be discharged today w/o needs for CM to address, and family transporting CATHERINE LOZANO RN-Care Management - 10/12/2019 15:47 EST Electronically signed by [facility] Conversion Director Of Cardiology Service Line Cerner at 03/07/2023 1:55 PM CDT documented in this encounter Plan of Treatment Upcoming Encounters Date Type Department Care Team (Late st Contact Info) Description 09/07/2025 10:45 AM EDT Office Visit [facility] Electrophysiology [address] [place] [address] Adrienne Dunn MD [address] [place] [address] [address] [place] [phone] documented as of this encounter Visit Diagnoses Not on filedocumented in this encounter Care Teams Etcher Hand Relationship Specialty Start Date End Date Niranjan Mccarty MD [address] [place] [address] PCP - General Adolescent Medicine 10/15/23 documented as of this encounter
--- OUTSIDE RECORDS SUMMARY | 2025-07-26 11:53 | XMS_ITS | Encounter Summary ---
Author Organization [employer] ([place], [place], [place], [place]) Address [address] [place] [address] Care Team Providers Care Sales Support Engineer Name Role Phone Niranjan Mccarty MD Primary Care Provider [phone] Encounter Details Date Type Department Care Team (Late st Contact Info) Description 10/12/2019 Transcribed Document [facility] [place] [address] ProviderAkash MD [address] [place] [address] [phone] Social History Tobacco Use Types Packs/Day Years Used Date Smoking Tobacco: Never Assessed Comments Unknown Sex and Gender Information Value Date Recorded Sex Assigned at Not on file Legal Sex Female 1:32 PM CDT Gender Identity Not on file Sexual Orientation Not on file documented as of this encounter Miscellaneous Notes * Cerner Conversion Note - Akash Vega MD - 10/12/2019 8:49 AM CONTINUOUS DRYOUT OPERATOR Patient: TRAN PEGUERO Age: 83 years [...] Office Visit [facility] Electrophysiology [address] [place] [address] Adrienne Dunn MD [address] [facility] [address] [place] [address] documented as of this encounter Visit Diagnoses Not on filedocumented in this encounter Care Teams Sales Support Engineer Relationship Specialty Start Date End Date Niranjan Mccarty MD [address] [place] [address] PCP - General Adolescent Medicine 10/15/23 documented as of this encounter
--- OUTSIDE RECORDS SUMMARY | 2025-07-26 11:53 | XMS_ITS | Encounter Summary ---
Author Organization [employer] ([place], [place], [place], [place]) Address [address] [place] [address] Care Team Providers Care Recoating Machine Operator Name Role Phone Niranjan Mccarty MD Primary Care Provider [phone] Encounter Details Date Type Department Care Team (Late st Contact Info) Description 10/10/[address] [facility] [place] [address] [place] [address] ProviderAkash MD [address] [place] [address] [id number] Social History Tobacco Use Types Packs/Day Years Used Date Smoking Tobacco: Never Assessed Comments Unknown Sex and Gender Information Value Date Recorded Sex Assigned at Not on file Legal Sex Female 1:32 PM CDT Gender Identity Not on file Sexual Orientation Not on file documented as of this encounter Miscellaneous Notes * Cerner Conversion Note - Akash ProviderMD - 10/10/2019 9:00 AM CIVIL RIGHTS INVESTIGATOR Pain Assessment Entered On: 10/10/2019 12:45 EST [...] EDT Office Visit [facility] Electrophysiology [address] [place] [address] Adrienne Dunn MD [address] [place] [address] [address] [place] [address] documented as of this encounter Visit Diagnoses Not on filedocumented in this encounter Care Teams Recoating Machine Operator Relationship Specialty Start Date End Date Niranjan Mccarty MD [address] [place] [address] PCP - General Adolescent Medicine 10/15/23 documented as of this encounter
--- OUTSIDE RECORDS SUMMARY | 2025-07-26 11:53 | XMS_ITS | Encounter Summary ---
Author Organization [employer] ([place], [place], [place], [place]) Address [address] [place] [address] Care Team Providers Care Wood Die Maker Name Role Phone Niranjan Mccarty MD Primary Care Provider [phone] Encounter Details Date Type Department Care Team (Late st Contact Info) Description 10/09/2019 Transcribed Document [facility] [place] [facility] [place] [address] ProviderAkash MD [address] [place] [address] Social History Tobacco Use Types [...] - Akash ProviderMD - 10/09/2019 8:24 PM ROUSTABOUT PUSHER Admission History, Adult Entered On: 10/09/2019 21:47 [...] megha Legal Guardian : No Support Person/Patient Senior Marketing Engineer : Yes Support Person/Pt Rep Name : daughter- sherley MEKA MANSFIELD, PAPITO - 10/09/2019 21:40 EST Maya Garcia RN - 10/12/2019 10:14 EST Support Person/Pt Rep Contact Information : gordon [phone] Want Family/Rep/Phys Notified of Admit : No Emergency Contact #1 : Sandee Emergency Contact #1 Emergency Contact #1 Relationship : daughter Emergency Contact #2 : Dana Emergency Contact #2 Emergency Contact #2 Relationship : sister in law Information Obtained From : Patient Primary Language : Citizen [place] Preferred Communication Mode : Verbal Communication Barrier [...] Scale Risk Level : 25-45 Medium Risk Mackey Fall Interventions : Adequate lighting, Assistive devices [...] Source : Stated Height Entry Format : [place] Height, Feet : 5 ft(Converted to: 152 cm, 60 Inch) Height, Inches : 5 Inch(Converted to: 0 ft 5 Inch, 12.70 cm) Clinical Height : 165.1 cm Weight Source : Bed scale Weight Entry Format : [place] Clinical Dosing Weight : 65.51 kg Weight, Pounds : 144 lb Weight, Ounces : 2 oz Body Surface Area (BSA) : 1.72 m2 Body Mass Index : 24 kg/m2 [place] Body Weight : 57 kg MEKA MANSFIELD [...] MEKA MANSFIELD RN - 10/09/2019 21:40 EST [place] Suicide Severity Rating Scale (C-SSRS) CSSRS Past [...] MEKA MANSFIELD RN - 10/09/2019 21:40 EST documented in this encounter Plan of Treatment Upcoming Encounters Date Type Department Care Team (Late st Contact Info) Description 09/07/2025 10:45 AM EDT Office Visit [facility] Electrophysiology [address] [place] [address] [place] [address] [place] [address] [address] [place] [address] documented as of this encounter Visit Diagnoses Not on filedocumented in this encounter Care Teams Wood Die Maker Relationship Specialty Start Date End Date Niranjan Mccarty MD [address] [place] [address] PCP - General Adolescent Medicine 10/15/23 documented as of this encounter
--- OUTSIDE RECORDS SUMMARY | 2025-07-26 11:53 | XMS_ITS | Encounter Summary ---
Author Organization [employer] ([place], [place], [place], [place]) Address [address] [place] [address] Care Team Providers Care Air Drier Machine Operator Name Role Phone Niranjan Mccarty MD Primary Care Provider [phone] Encounter Details Date Type Department Care Team (Late st Contact Info) Description 10/09/2019 Transcribed Document [facility] [place] [address] ProviderAkash MD [address] [place] [address] [phone] Social History Tobacco Use Types Packs/Day Years Used Date Smoking Tobacco: Never Assessed Comments Unknown Sex and Gender Information Value Date Recorded Sex Assigned at Not on file Legal Sex Female 1:32 PM CDT Gender Identity Not on file Sexual Orientation Not on file documented as of this encounter Miscellaneous Notes * Cerner Conversion Note - Akash Vega MD - 10/09/2019 9:20 PM ORDNANCE TRUCK INSTALLATION MECHANIC Consult Phone Call Documentation Entered On: 10/10/2019 10:25 EST Performed On: 10/09/2019 21:20 EST by Delma Cox, [facility] Coord Phone Call for Consults Consult Phone Call/Page Attempt : First call Consult Reason : chest pain, AFIB Physician Requesting Consult : CINTHIA ENNIS MD Physician Requested for Consult : VIRY ESTRADA MD-CAR Provider Service Notified Name : Cardiology Physician Covering for Consult : zafar Date and Time Call Returned : 10/10/2019 10:25 EST Consult, Additional Information : spoke to [facility] Delma Cox, [facility] Coord - 10/10/2019 10:13 EST Electronically signed by Cecy, [facility] Conversion Supervisor Printing And Stamping Cerner at 03/07/2023 1:41 PM CDT documented in this encounter Plan of Treatment Upcoming Encounters Date Type Department Care Team (Late st Contact Info) Description 09/07/2025 10:45 AM EDT Office Visit [facility] Electrophysiology [address] [place] [address] [place] [address] [place] [address] [address] [place] [phone] documented as of this encounter Visit Diagnoses Not on filedocumented in this encounter Care Teams Air Drier Machine Operator Relationship Specialty Start Date End Date Niranjan Mccarty MD [address] [place] [address] PCP - General Adolescent Medicine 10/15/23 documented as of this encounter
--- OUTSIDE RECORDS SUMMARY | 2025-07-26 11:53 | XMS_ITS | Encounter Summary ---
Author Organization [employer] ([place], [place], [place], [place]) Address [address] [place] [address] Care Team Providers Care Candy Supervisor Name Role Phone Niranjan Mccarty MD Primary Care Provider [phone] Encounter Details Date Type Department Care Team (Late st Contact Info) Description 10/12/2019 Transcribed Document [facility] Cardiology [address] [place] [address] Constantine Galvan MD [address] [place] [address] [address] [place] [address] Social History Tobacco Use Types Packs/Day Years [...] Normal study. 2. Ejection fraction is 60%. /[id number] MD POLINA Carvalho/AQ / POLINA / SIMAL /[id number] documented in this encounter Plan of Treatment Upcoming Encounters Date Type Department Care Team (Late st Contact Info) Description 09/07/2025 10:45 AM EDT Office Visit [facility] Electrophysiology [address] [place], [place] [phone] Adrienne Dunn MD [address] [place] [address] [address] [place] [address] documented as of this encounter Visit Diagnoses Not on filedocumented in this encounter Care Teams Candy Supervisor Relationship Specialty Start Date End Date Niranjan Mccarty MD [address] [place] [address] PCP - General Adolescent Medicine 10/15/23 documented as of this encounter
--- OUTSIDE RECORDS SUMMARY | 2025-07-26 11:53 | XMS_ITS | Encounter Summary ---
Author Organization [employer] ([place], [place], [place], [place]) Address [address] [place] [address] Care Team Providers Care Rear Admiral Name Role Phone Niranjan Mccarty MD Primary Care Provider [phone] Encounter Details Date Type Department Care Team (Late st Contact Info) Description 10/11/2019 Transcribed Document [facility] Cardiology [address] [place] [address] Constantine Galvan MD [address] [place] [address] [address] [place] [phone] Social History Tobacco Use Types Packs/Day Years [...] 1. Normal study. 2. Ejection fraction 60%. /[id number] Constantine Galvan MD NMF/AQ / POLINA / MODL /[id number] documented in this encounter Plan of Treatment Upcoming Encounters Date Type Department Care Team (Late st Contact Info) Description 09/07/2025 10:45 AM EDT Office Visit [facility] Electrophysiology [address] [place], [place] [phone] Adrienne Dunn MD [address] [place] [address] [address] [place] [phone] documented as of this encounter Visit Diagnoses Not on filedocumented in this encounter Care Teams Rear Admiral Relationship Specialty Start Date End Date Niranjan Mccarty MD [address] [place] [address] PCP - General Adolescent Medicine 10/15/23 documented as of this encounter
--- OUTSIDE RECORDS SUMMARY | 2025-07-26 11:53 | XMS_ITS | Encounter Summary ---
Author Organization [employer] ([place], [place], [place], [place]) Address [address] [place] [address] Care Team Providers Care Retail Presentation Specialist Name Role Phone Niranjan Mccarty MD Primary Care Provider [phone] Encounter Details Date Type Department Care Team (Late st Contact Info) Description 10/10/2019 Transcribed Document [facility] Cardiology [address] [place] [address] [place] [address] [place] [address] [address] [place] [address] Social History Tobacco Use Types Packs/Day Years [...] MD-CAR Basic Information PCP: NIRANJAN MORRIS MD Automation Operator: Cole SAMUEL Chief Complaint chest pain History of Present Illness 83 year old female with a history of hypertension, hyperlipidemia, atrial fibrillation, SSS status post pacemaker placement, chronic anticoagulation with Coumadin, COPD. She presented to [facility] ER yesterday with complaints of chest pain. The pain was localized in the left side and radiated into her neck. She became diaphoretic and nauseated. The pain lasted for several minutes but returned later prompting her to seek medical attention. Troponin was negative however, based on her history and symptoms she was transferred to [facility] for evaluation. She is currently [...] l Past Medical History: Active Atrial fibrillation (78514326) Hyperlipidemia (39521767) Hypertension (08503961) Family History: Non contributory Procedure history: Appendectomy; (14753). cataract surgery. Cholecystectomy; (64227). eye surgery. foot surgery right. hand surgery. [...] of motion, Normal strength. Integumentary: Warm, Dry, Kerr. Neurologic: Alert, Oriented. Psychiatric: Cooperative. Review / [...] Office Visit [facility] Electrophysiology [address] [place] [address] Adrienne Dunn MD [address] [place] [address] [address] [place] [address] documented as of this encounter Visit Diagnoses Not on filedocumented in this encounter Care Teams Retail Presentation Specialist Relationship Specialty Start Date End Date Niranjan Mccarty MD [address] [place] [address] PCP - General Adolescent Medicine 10/15/23 documented as of this encounter
--- OUTSIDE RECORDS SUMMARY | 2025-07-26 11:53 | XMS_ITS | Clinical Summary ---
Author Organization [employer] ([place], [place], [place], [place]) Address [address] [place] [address] Care Team Providers Care Counter Waitress/Waiter Name Role Phone Niranjan Mccarty MD Primary Care Provider [phone] Allergies Active Allergy Reactions Criticality Noted Date [...] pantoprazole (PROTONIX) 20 MG tablet daily. Active umeclidinium-kari anteroL (Anoro Ellipta) 62.5-25 mcg/actuation DsDv daily. Active [...] as needed. Active sotaloL (BETAPACE) 160 MG tabletIndication s:Paroxysmal atrial fibrillation (HCC) Take 1 tablet (160 mg total) by mouth 2 (two) times daily. 180 tablet 3 4 Active torsemide (DEMADEX) 10 MG tabletIndication s:Paroxysmal atrial fibrillation (HCC),Localized edema Take 1 tablet (10 mg total) by mouth daily. 90 tablet 3 5 12/27/19 26 Active digoxin (LANOXIN) 125 mcg (0.125 mg) tabletIndication s:Paroxysmal atrial fibrillation (HCC) Take 1 tablet (125 mcg total) by mouth daily. 90 tablet 3 5 Active digoxin (LANOXIN) 125 mcg (0.125 mg) tabletIndication s:Paroxysmal atrial fibrillation (HCC) Take 1 tablet (125 mcg total) by mouth daily. 90 tablet 3 4 07/14/20 25 Discontinu ed(Reorder ) Active Problems Problem Noted Date Diagnosed Date Encounter for adjustment or management of cardia c device 11/29/2024 Paroxysmal atrial fibrillation 04/06/2024 0 04/06/2024 Complete atrioventricular block 09/19/2021 04/06/2024 Presence of cardiac pacemaker 06/07/2021 Hyperlipidemia 09/18/2020 04/06/2024 Sick sinus syndrome 09/15/2019 04/06/2024 Hypertension 09/15/2019 04/06/2024 Encounters Date Type Department Care Team Description 07/14/2025 Orders Only [facility] Electrophysiology [address] [place] [address] Antwan Mckeon RN Paroxysmal atrial fibrillation (HCC) 07/14/2025 Orders Only [facility] Electrophysiology [address] [place] [address] Antwan Mckeon RN Paroxysmal atrial fibrillation (HCC) 07/14/2025 Telephone [facility] Cardiology [address] [place] [address] Adrienne Dunn MD Medication Refill from Last 3 Months Social History Tobacco [...] Date Garrett rded Speak language other than Chadian at home Not on file 11/28/2023 Want [...] [facility] Electrophysiology [address] [place] [address] Adrienne uDnn MD [address] [facility] [address] [place] [address] Health Maintenance Due Date Last Done Comments Medicare Initial AWV G0438 Depression Screening (12+) 1947 DTAP/TDAP/TD VACCINES (1 - Tdap) 1954 Pneumococcal 50+ years (1 of 2 - PCV) 1954 Shingles Vaccine (Zoster) (1 of 2) 1985 Respiratory Syncytial Virus (RSV) Adult or (1 - 1-dose 75+ series) 2010 Falls Risk Screening 11/17/2024 COVID-19 VACCINE ( - season) 2025 Influenza Vaccine (#1) 2025 Tobacco Cessation Counseling and Screening (12+) 03/0203/02/2025 Medical Devices Implanted Type Area Harness Mender Device Identifier Shelf Expiration Date Model / Serial / Lot Pacemakers-06/13 Implanted:06/13 (Quantity not on file) Pacemakers [employer] JODY / [id number] / Description:DEPENDENT Insurance MEDICARE PART A B [place] [id number] Care Teams Counter Waitress/Waiter Relationship Specialty Start Date End Date Niranjan Mccarty MD [address] [place] [address] PCP - General Adolescent Medicine 10/15/23
--- OUTSIDE RECORDS SUMMARY | 2025-07-26 11:53 | XMS_ITS | Encounter Summary ---
Author Organization [employer] ([place], [place], [place], [place]) Address [address] [place] [address] Care Team Providers Care Oracle Database Developer Name Role Phone Niranjan Mccarty MD Primary Care Provider [phone] Encounter Details Date Type Department Care Team (Late st Contact Info) Description 10/11/2019 Transcribed Document [facility] [place] [facility] [place] [address] ProviderAkash MD [address] [place] [id number] Social History Tobacco Use Types Packs/Day Years Used Date Smoking Tobacco: Never Assessed Comments Unknown Sex and Gender Information Value Date Recorded Sex Assigned at Not on file Legal Sex Female 1:32 PM CDT Gender Identity Not on file Sexual Orientation Not on file documented as of this encounter Miscellaneous Notes * Cerner Conversion Note - Akash Vega MD - 10/11/2019 8:37 AM CITY DETECTIVE Patient: TRAN PEGUERO Age: 83 Years Sex: [...] 10/11/2019 04:25 EST Electronically signed by Cecy [facility] Conversion Veneer Trimmer Cerner at 03/07/2023 1:25 PM CDT documented in this encounter Plan of Treatment Upcoming Encounters Date Type Department Care Team (Late st Contact Info) Description 09/07/2025 10:45 AM EDT Office Visit [facility] Electrophysiology [address] [place] [address] Adrienne Dunn MD [address] [place] [address] [address] [place] [address] documented as of this encounter Visit Diagnoses Not on filedocumented in this encounter Care Teams Oracle Database Developer Relationship Specialty Start Date End Date Niranjan Mccarty MD [address] [place] [address] PCP - General Adolescent Medicine 10/15/23 documented as of this encounter
--- OUTSIDE RECORDS SUMMARY | 2025-07-26 11:53 | XMS_ITS | Encounter Summary ---
Author Organization [employer] ([place], [place], [place], [place]) Address [address] [place] [address] Care Team Providers Care Needle Molder Name Role Phone Niranjan Mccarty MD Primary Care Provider [phone] Encounter Details Date Type Department Care Team (Late st Contact Info) Description 10/11/[address] [facility] [place] [address] ProviderAkash MD [address] [place] [address] Social History Tobacco Use Types Packs/Day [...] Akash Vega MD - 10/11/2019 9:00 PM CRYSTAL GAZER Pain Assessment Entered On: 10/12/2019 6:31 EST Performed On: 10/11/2019 23:11 EST by MAXX BARRERA, RN Intervention Information: traMADol Performed by MAXX BARRERA RN on 10/11/2019 22:11:00 EST traMADol,50mg Oral Pain Assessment Pain Assessment : Follow-up assessment Pain Scale Goal : 4 Pain Improved by Intervention : Yes MAXX BARRERA, RN - 10/12/2019 6:31 EST Electronically signed by Cecy [facility] Conversion Finisher Fine Diamond Dies Cerner at 03/07/2023 1:48 PM CDT documented in this encounter Plan of Treatment Upcoming Encounters Date Type Department Care Team (Late st Contact Info) Description 09/07/2025 10:45 AM EDT Office Visit [facility] Electrophysiology [address] [place] [address] Adrienne Dunn MD [address] [facility] [address] [place], [place] [id number] documented as of this encounter Visit Diagnoses Not on filedocumented in this encounter Care Teams Needle Molder Relationship Specialty Start Date End Date Niranjan Mccarty MD [address] [place] [address] PCP - General Adolescent Medicine 10/15/23 documented as of this encounter
--- OUTSIDE RECORDS SUMMARY | 2025-07-26 11:53 | XMS_ITS | Encounter Summary ---
Author Organization [employer] ([place], [place], [place], [place]) Address [address] [place] [address] Care Team Providers Care Boat Laborer Name Role Phone Niranjan Mccarty MD Primary Care Provider [phone] Encounter Details Date Type Department Care Team (Late st Contact Info) Description 10/11/2019 Transcribed Document [facility] [place] Family Medicine [address] [place] [address] ProviderAkash MD [address] [place] [address] Social History Tobacco Use Types [...] - Akash ProviderMD - 10/11/2019 5:00 AM STATION REPAIRER Chart Check - Review Order Profile Entered On: 10/11/2019 4:17 EST Performed On: 10/11/2019 5:00 EST by MEKA MANSFIELD RN Chart Check All Active Orders Reviewed : Yes MEKA MANSFIELD RN - 10/11/2019 4:17 EST documented in this encounter Plan of Treatment Upcoming Encounters Date Type Department Care Team (Late st Contact Info) Description 09/07/2025 10:45 AM EDT Office Visit [address] [address] Adrienne Dunn MD 14[address] [facility] [address] [place], [place] [id number] documented as of this encounter Visit Diagnoses Not on filedocumented in this encounter Care Teams Boat Laborer Relationship Specialty Start Date End Date Niranjan Mccarty MD [address] [place] [address] PCP - General Adolescent Medicine 10/15/23 documented as of this encounter
--- OUTSIDE RECORDS SUMMARY | 2025-07-26 11:53 | XMS_ITS | Encounter Summary ---
Author Organization [employer] ([place], [place], [place], [place]) Address [address] [place] [address] Care Team Providers Care Front End Architect Name Role Phone Niranjan Mccarty MD Primary Care Provider [phone] Encounter Details Date Type Department Care Team (Late st Contact Info) Description 10/12/2019 Transcribed Document [facility] [place] [facility] [address] ProviderAkash MD [address] [place], [place] [id number] Social History Tobacco Use Types Packs/Day Years Used Date Smoking Tobacco: Never Assessed Comments Unknown Sex and Gender Information Value Date Recorded Sex Assigned at Not on file Legal Sex Female 1:32 PM CDT Gender Identity Not on file Sexual Orientation Not on file documented as of this encounter Miscellaneous Notes * Cerner Conversion Note - Akash Vega MD - 10/12/2019 9:40 AM LABOR RELATIONS DIRECTOR Patient Education Materials Follows: Nonspecific Chest Pain [...] you start to feel better. ??? Take woqo-brf-aniojra and prescription medicines only as told by [...] 04/21/2009 Document Revised: 07/28/2017 Document Reviewed: 07/28/2017 ElseNOLA J&B Interactive Patient Education ? 2019 [employer] documented in this encounter Plan of Treatment Upcoming Encounters Date Type Department Care Team (Late st Contact Info) Description 09/07/2025 10:45 AM EDT Office Visit [facility] [address]rophys[address] [place], [place] [phone] Adrienne Dunn MD [address] [place] [address] [address] [place] [address] documented as of this encounter Visit Diagnoses Not on filedocumented in this encounter Care Teams Front End Architect Relationship Specialty Start Date End Date Niranjan Mccarty MD [address] [place] [address] PCP - General Adolescent Medicine 10/15/23 documented as of this encounter
--- OUTSIDE RECORDS SUMMARY | 2025-07-26 11:53 | XMS_ITS | Encounter Summary ---
Author Organization [employer] ([place], [place], [place], [place]) Address [address] [place] [address] Care Team Providers Care Vat House Supervisor Name Role Phone Niranjan Mccarty MD Primary Care Provider [phone] Encounter Details Date Type Department Care Team (Late st Contact Info) Description 10/10/2019 Transcribed Document [facility] Family Medicine [facility] [place] [address] ProviderAkash MD [address] [place] [address] Social History Tobacco Use Types Packs/Day Years Used Date Smoking Tobacco: Never Assessed Comments Unknown Sex and Gender Information Value Date Recorded Sex Assigned at Not on file Legal Sex Female 1:32 PM CDT Gender Identity Not on file Sexual Orientation Not on file documented as of this encounter Miscellaneous Notes * Cerner Conversion Note - Akash ProviderMD - 10/10/2019 2:00 AM OVERNIGHT BABYSITTER Survival Specialist Details Entered On: 10/10/2019 1:12 EST Performed [...] 10/10/2019 1:12 EST Electronically signed by Cecy [facility] Conversion Card Decorator Cerner at 03/07/2023 1:26 PM CDT documented in this encounter Plan of Treatment Upcoming Encounters Date Type Department Care Team (Late st Contact Info) Description 09/07/2025 10:45 AM EDT Office Visit [facility] Electrophysiology [address] [place] [phone] Adrienne Dunn MD [address] [facility] [address] [place] [address] documented as of this encounter Visit Diagnoses Not on filedocumented in this encounter Care Teams Vat House Supervisor Relationship Specialty Start Date End Date Niranjan Mccarty MD [address] [place] [address] PCP - General Adolescent Medicine 10/15/23 documented as of this encounter
--- OUTSIDE RECORDS SUMMARY | 2025-07-26 11:53 | XMS_ITS | Encounter Summary ---
Author Organization [employer] ([place], [place], [place], [place]) Address [address] [place] [address] Care Team Providers Care Facility Administrator Name Role Phone Niranjan Mccarty MD Primary Care Provider [phone] Encounter Details Date Type Department Care Team (Late st Contact Info) Description 10/11/2019 Transcribed Document [facility] [place] [facility] [place] [address] ProviderAkash MD [address] [place] [address] Social History Tobacco Use Types Packs/Day Years Used Date Smoking Tobacco: Never Assessed Comments Unknown Sex and Gender Information Value Date Recorded Sex Assigned at Not on file Legal Sex Female 1:32 PM CDT Gender Identity Not on file Sexual Orientation Not on file documented as of this encounter Miscellaneous Notes * Cerner Conversion Note - Akash ProviderMD - 10/11/2019 2:00 AM REVIEW CONSULTANT Craft Superintendent Details Entered On: 10/11/2019 2:03 EST Performed [...] 10/11/2019 2:02 EST Electronically signed by Cecy [facility] Conversion Structural Mill Supervisor Cerner at 03/07/2023 1:39 PM CDT documented in this encounter Plan of Treatment Upcoming Encounters Date Type Department Care Team (Late st Contact Info) Description 09/07/2025 10:45 AM EDT Office Visit [facility] Electrophysiology [address] [place] [phone] Adrienne Dunn MD 1401 [facility] [address] [place] [address] documented as of this encounter Visit Diagnoses Not on filedocumented in this encounter Care Teams Facility Administrator Relationship Specialty Start Date End Date Niranjan Mccarty MD [address] [place] [address] PCP - General Adolescent Medicine 10/15/23 documented as of this encounter
--- OUTSIDE RECORDS SUMMARY | 2025-07-26 11:53 | XMS_ITS | Encounter Summary ---
Author Organization [employer] ([place], [place], [place], [place]) Address [address] [place] [address] Care Team Providers Care Oceanographic Meteorologist Name Role Phone Niranjan Mccarty MD Primary Care Provider [phone] Encounter Details Date Type Department Care Team (Late st Contact Info) Description 10/09/2019 Transcribed Document [facility] [place] [facility] [place] [address] ProviderAkash MD [address] [place] [address] Social History Tobacco Use Types Packs/Day Years Used Date Smoking Tobacco: Never Assessed Comments Unknown Sex and Gender Information Value Date Recorded Sex Assigned at Not on file Legal Sex Female 1:32 PM CDT Gender Identity Not on file Sexual Orientation Not on file documented as of this encounter Miscellaneous Notes * Cerner Conversion Note - Historical ProviderMD - 10/09/2019 9:18 PM SCRIPT READER Education-(VTE) / (DVT) Entered On: 10/09/2019 23:43 EST Performed On: 10/09/2019 21:18 EST by MEKA MANSFIELD RN Teaching/Learning Assessment Barriers To Learning : None evident Individuals Taught : Patient Readiness to Learn : Cooperative Learning Style Preferences Patient : Verbal explanation Learning Style Preferences Family : Verbal explanation MEKA MANSFIELD RN - 10/09/2019 23:43 EST Electronically signed by Cecy [facility] Conversion Senior Vice President Cerner at 03/07/2023 1:26 PM CDT documented in this encounter Plan of Treatment Upcoming Encounters Date Type Department Care Team (Late st Contact Info) Description 09/07/2025 10:45 AM EDT Office Visit [facility] Electrophysiology [address] [place] [phone] Adrienne Dunn MD 14[address] [facility] [address] [place] [address] documented as of this encounter Visit Diagnoses Not on filedocumented in this encounter Care Teams Oceanographic Meteorologist Relationship Specialty Start Date End Date Niranjan Mccarty MD [address] [place] [address] PCP - General Adolescent Medicine 10/15/23 documented as of this encounter
--- OUTSIDE RECORDS SUMMARY | 2025-07-26 11:53 | XMS_ITS | Encounter Summary ---
Author Organization [employer] ([place], [place], [place], [place]) Address [address] [place] [address] Care Team Providers Care Aspnet Developer Name Role Phone Niranjan Mccarty MD Primary Care Provider [phone] Encounter Details Date Type Department Care Team (Late st Contact Info) Description 10/12/2019 Transcribed Document [facility] [place] [address] ProviderAkash MD [address] [place] [id number] Social History Tobacco Use Types Packs/Day Years Used Date Smoking Tobacco: Never Assessed Comments Unknown Sex and Gender Information Value Date Recorded Sex Assigned at Not on file Legal Sex Female 1:32 PM CDT Gender Identity Not on file Sexual Orientation Not on file documented as of this encounter Miscellaneous Notes * Cerner Conversion Note - Akash Vega MD - 10/12/2019 6:20 PM SPEEDER MACHINE OPERATOR Nursing Discharge Summary Entered On: 10/12/2019 18:22 [...] - 10/12/2019 18:20 EST Electronically signed by [facility] Conversion Automotive Technician Instructor Cerner at 03/07/2023 1:46 PM CDT documented in this encounter Plan of Treatment Upcoming Encounters Date Type Department Care Team (Late st Contact Info) Description 09/07/2025 10:45 AM EDT Office Visit [facility] Electrophysiology [address] [place] [address] Adrienne Dunn MD [address] [place] [address] [address] [place] [phone] documented as of this encounter Visit Diagnoses Not on filedocumented in this encounter Care Teams Aspnet Developer Relationship Specialty Start Date End Date Niranjan Mccarty MD [address] [place] [address] PCP - General Adolescent Medicine 10/15/23 documented as of this encounter
--- OUTSIDE RECORDS SUMMARY | 2025-07-26 11:53 | XMS_ITS | Encounter Summary ---
Author Organization [employer] ([place], [place], [place], [place]) Address [address] [place] [address] Care Team Providers Care Melter Supervisor Open Hearth Furnace Name Role Phone Niranjan Mccarty MD Primary Care Provider [phone] Encounter Details Date Type Department Care Team (Late st Contact Info) Description 10/12/2019 Transcribed Document [facility] [place] [facility] Family Medicine [facility] [place] [address] ProviderAkash MD [address] [place], [place] [address] Social History Tobacco Use Types Packs/Day Years Used Date Smoking Tobacco: Never Assessed Comments Unknown Sex and Gender Information Value Date Recorded Sex Assigned at Not on file Legal Sex Female 1:32 PM CDT Gender Identity Not on file Sexual Orientation Not on file documented as of this encounter Miscellaneous Notes * Cerner Conversion Note - Akash Vega MD - 10/12/2019 9:35 AM MACHINE SAND MIXER Patient: TRAN PEGUERO Age: 83 years [...] home oxygen, gastric ulcer who presented to [facility] ER today with complaints of chest [...] any, fever or chills. Lab workup at [facility] showed WBC count 5.6, hemoglobin 11.7, [...] significant chest pain. Patient requested transfer to [facility] to be evaluated by her briquetting machine operator here. She was admitted to [...] 09/07/2025 10:45 AM EDT Office Visit [facility] Electrophysiology [address] [place] [phone] [place] [address] [place] [address] [address] [place] [address] documented as of this encounter Visit Diagnoses Not on filedocumented in this encounter Care Teams Melter Supervisor Open Hearth Furnace Relationship Specialty Start Date End Date Niranjan Mccarty MD [address] [place] [address] PCP - General Adolescent Medicine 10/15/23 documented as of this encounter
--- OUTSIDE RECORDS SUMMARY | 2025-07-26 11:54 | XMS_ITS | Encounter Summary ---
Author Organization [employer] ([place], [place], [place], [place]) Address [address] [place] [address] Care Team Providers Care Director Operations Name Role Phone Niranjan Mccarty MD Primary Care Provider [phone] Encounter Details Date Type Department Care Team (Late st Contact Info) Description 06/13/2021 Transcribed Document [facility] [place] [facility] [place] [address] ProviderAkash MD [address] [place] [address] Social History Tobacco Use Types [...] Vega MD - 06/13/2021 3:32 PM CDT [facility] [place] [id number] WILD TRANDAREN MENDOZA :1935 Visit Time:06/12/2021 Your [...] Dr. Dunn Appointment has been made Where: [facility] [address] [place] [address]- Business (1) Medications What How Much When [...] these instructions at home: Medicines ??? Take ifpq-cpz-xfwlkmj and prescription medicines only as told by [...] and water are not available, use hand assembly supervisor. ? Change your dressing as told by [...] your chest for several days. ??? Take zyyd-xjn-ucslwnz and prescription medicines only as told by [...] Reviewed: 10/04/2019 Elsevier Patient Education ?? 2020 ElseGan & Lee Pharm[employer] Inc. Heart-Healthy Eating Plan Heart-healthy meal planning [...] Fats and oils Meat fat, or shortening. [place] butter, hydrogenated oils, palm oil, coconut oil, [...] provider. Document Revised: 01/07/2019 Document Reviewed: 12/11/2018 Piki Patient Education ?? 2020 [employer]. Emergency Awareness and Preventative Care STROKE is [...] Assistance with quitting is available by contacting 8-454-FZRV-NOW. This is a free resource providing counseling, [...] range between ( 0.0 and 7.0 ) [place] #: 0.48 K/uL -- Normal range between ( 0.16 and 1.00 ) Eos #: 0.16 x10(3)/uL -- Normal range between ( 0.00 and 0.80 ) [place] %: 8.0 % -- Normal range between [...] was given the opportunity to ask questions. Patient/Tractor Distributor Name: Patient/Tractor Distributor Signature: Relationship to Patient: Clinician/Hospital Tractor Distributor Signature: Date: Electronically signed by Interface, [facility] Conversion Treasury Associate Cerner at 03/07/2023 1:44 PM CDT documented in this encounter Plan of Treatment Upcoming Encounters Date Type Department Care Team (Late st Contact Info) Description 09/07/2025 10:45 AM EDT Office Visit [address] [address] Adrienne Dunn MD [address] [place] [address] [address] [place] [address] documented as of this encounter Visit Diagnoses Not on filedocumented in this encounter Care Teams Director Operations Relationship Specialty Start Date End Date Niranjan Mccarty MD [address] [place] [address] PCP - General Adolescent Medicine 10/15/23 documented as of this encounter
--- OUTSIDE RECORDS SUMMARY | 2025-07-26 11:54 | XMS_ITS | Encounter Summary ---
Author Organization [employer] ([place], [place], [place], [place]) Address [address] [place] [address] Care Team Providers Care Plant Anatomy Teacher Name Role Phone Niranjan Mccarty MD Primary Care Provider [phone] Encounter Details Date Type Department Care Team (Late Contact Info) Description 06/13/2021 Transcribed Document [facility] [place] [facility] [address] ProviderAkash MD [address] [place] [phone] Social History Tobacco Use Types Packs/Day Years [...] Visit [facility] Electrophysiology [address] [place] [phone] Adrienne Dunn MD [address]01 [facility] [address] [place] [address] documented as of this encounter Visit Diagnoses Not on filedocumented in this encounter Care Teams Plant Anatomy Teacher Relationship Specialty Start Date End Date Niranjan Mccarty MD [address] [place] [address] PCP - General Adolescent Medicine 10/15/23 documented as of this encounter
--- OUTSIDE RECORDS SUMMARY | 2025-07-26 11:54 | XMS_ITS | Encounter Summary ---
Author Organization [employer] ([place], [place], [place], [place]) Address [address] [place] [address] Care Team Providers Care Geodetic Surveyor Name Role Phone Niranjan Mccarty MD Primary Care Provider [phone] Encounter Details Date Type Department Care Team (Late st Contact Info) Description 06/13/2021 Transcribed Document [facility] Family Medicine [facility] [place] [address] ProviderAkash MD [address] [place] [address] Social History Tobacco Use Types [...] Vega MD - 06/13/2021 3:12 PM CDT [facility] [place] [id number] WILD TALDAREN MENDOZA :1935 Visit Time:06/12/2021 Your [...] Dr. Dunn Appointment has been made Where[facility] [address] [place] [address]- Stamped (1) Medications What How Much When Instructions [...] these instructions at home: Medicines ??? Take nwly-xot-ykdtjmk and prescription medicines only as told by [...] and water are not available, use hand planning analyst. ? Change your dressing as told [...] your chest for several days. ??? Take vwqk-wjk-vrkeobu and prescription medicines only as told by [...] Reviewed: 10/04/2019 Elsevier Patient Education ?? 2020 [employer]. Heart-Healthy Eating Plan Heart-healthy meal planning [...] Fats and oils Meat fat, or shortening. Outlook butter, hydrogenated oils, palm oil, coconut oil, [...] provider. Document Revised: 01/07/2019 Document Reviewed: 12/11/2018 ElseKEMOJO [employer]ing Patient Education ?? 2020 Choose Digital. Emergency Awareness and Preventative Care STROKE is [...] Assistance with quitting is available by contacting 4-190-PULY-NOW. This is a free resource providing counseling, [...] range between ( 0.0 and 7.0 ) [place] #: 0.48 K/uL -- Normal range between ( 0.16 and 1.00 ) Eos #: 0.16 x10(3)/uL -- Normal range between ( 0.00 and 0.80 ) [place] %: 8.0 % -- Normal range between [...] was given the opportunity to ask questions. Patient/Senior Resident Care Director Name: Patient/Senior Resident Care Director Signature: Relationship to Patient: Clinician/Hospital Senior Resident Care Director Signature: Date: Electronically signed by Cecy, [employer] Conversion Director Of Intercollegiate Athletics Cerner at 03/07/2023 1:42 PM CDT documented in this encounter Plan of Treatment Upcoming Encounters Date Type Department Care Team (Late st Contact Info) Description 09/07/2025 10:45 AM EDT Office Visit [facility] Electrophysiology [address] [place], [place] [phone] Ewa Dunn MD [address] [place] [address] [address] [place] [phone] documented as of this encounter Visit Diagnoses Not on filedocumented in this encounter Care Teams Geodetic Surveyor Relationship Specialty Start Date End Date Niranjan Mccarty MD [address] [place] [address] PCP - General Adolescent Medicine 10/15/23 documented as of this encounter
--- OUTSIDE RECORDS SUMMARY | 2025-07-26 11:54 | XMS_ITS | Encounter Summary ---
Author Organization [employer] ([place], [place], [place], [place]) Address [address] [place] [address] Care Team Providers Care Residential Mental Health Worker Name Role Phone Niranjan Mccarty MD Primary Care Provider [phone] Encounter Details Date Type Department Care Team (Late st Contact Info) Description 06/12/2021 Transcribed Document [facility] [place] Medicine [address] [place] [address] ProviderAkash MD [address] [place], [place] [id number] Social History Tobacco Use Types Packs/Day Years [...] Source : Stated Height Entry Format : [place] Height, Feet : 5 ft(Converted to: 152 cm, 60 Inch) Height, Inches : 7 Inch(Converted to: 0 ft 7 Inch, 17.78 cm) Clinical Height : 170.18 cm Weight Source : Standing scale Weight Entry Format : [place] Clinical Dosing Weight : 65.91 kg Weight, Pounds : 145 lb Body Surface Area (BSA) : 1.77 m2 Body Mass Index : 22.8 kg/m2 [place] Body Weight : 61 kg Nory Farfan [...] Nory Farfan RN - 06/12/2021 12:53 EDT [place] Suicide Severity Rating Scale (C-SSRS) CSSRS Past [...] Daughter Legal Guardian : No Support Person/Patient 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 Laboratory Supervisor : 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 Support Person/Pt Rep Name : daughter- sherley gómez Support Person/Pt Rep Contact Information : gordon [phone] Want Family/Rep/Phys Notified of Admit : No Emergency Contact #1 : NA Emergency Contact #1 Phone Number : NA Emergency Contact #1 Relationship : NA Emergency Contact #2 : NA Emergency Contact #2 Phone Number : NA Emergency Contact #2 Relationship : NA Information Obtained From : Patient Primary Language : Montenegrin Preferred Communication Mode : Verbal Communication Barrier : None Accounts Collector Needed : No Nory Farfan RN - [...] Scale Risk Level : 0-24 Low Risk [place] Fall Interventions : Adequate lighting, Bed in [...] Office Visit [facility] Electrophysiology [address] [place] [address] Adrienne Dunn MD [address] [place] [address] [address] [place] [address] documented as of this encounter Visit Diagnoses Not on filedocumented in this encounter Care Teams Residential Mental Health Worker Relationship Specialty Start Date End Date Niranjan Mccarty MD [address] [place] [address] PCP - General Adolescent Medicine 10/15/23 documented as of this encounter
--- OUTSIDE RECORDS SUMMARY | 2025-07-26 11:54 | XMS_ITS | Encounter Summary ---
Author Organization [employer] ([place], [place], [place], [place]) Address [address] [place] [address] Care Team Providers Care Whiskey Filterer Name Role Phone Niranjan Mccarty MD Primary Care Provider [phone] Encounter Details Date Type Department Care Team (Late st Contact Info) Description 08/23/2021 Transcribed Document [facility] [place] [facility] [place] [address] ProviderAkash MD [address] [place] [address] Social History Tobacco Use Types [...] Vega MD - 08/23/2021 8:36 PM CDT [facility] [place] [id number] TAL PEGUERO :1935 Visit Time:08/23/2021 Your Visit [...] to 3 days Where: [address] [place] [address] [place] (1) Allergies Advicor Radha Baycol Biaxin Claritin [...] A Day Duration: 10 Day(s) Pickup at [facility] methylPREDNISolone (Medrol Dosepak 4 mg oral tablet) 1 Packet(s) Oral Every Day Duration: 6 Day(s) as directed on package labeling Pickup at [facility] ALPRAZolam (Xanax 0.5 mg oral [...] Oral Every Day except sundays Pharmacy Information [facility]: [address] [phone] The home medications listed are only as [...] range between ( 0.0 and 7.0 ) [place] #: 0.50 K/uL -- Normal range between ( 0.16 and 1.00 ) Eos #: 0.28 -- Normal range between ( 0.00 and 7.00 ) [place] %: 5.9 % -- Normal range between [...] ) Urine Bilirubin Dipstick: Negative Urine Specific [place]: 1.007 -- Normal range between ( 1.005 [...] these instructions at home: Medicines ??? Take hwsk-zhi-wqkbpyq and prescription medicines only as told by [...] are not available, use hand director of recruitment. ??? During flu season, avoid enclosed spaces [...] Reviewed: 12/08/2017 Elsevier Patient Education ?? 2020 [employer] Emergency Awareness and Preventative Care STROKE [...] Assistance with quitting is available by contacting 7-380-ILLC-NOW. This is a free resource providing counseling, support, and referral. Or you may contact your personal physician. [place] Suicide Prevention Lifeline: The National Suicide Prevention [...] was given the opportunity to ask questions. Patient/Chief Lock Tender Operator Name: Patient/Chief Lock Tender Operator Signature: Relationship to Patient: Clinician/Hospital Chief Lock Tender Operator Signature: Please Provide a Telephone Number Where You Can Be Reached: Is it Permissible To Leave a Message? Date: documented in this encounter Plan of Treatment Upcoming Encounters Date Type Department Care Team (Late st Contact Info) Description 09/07/2025 10:45 AM EDT Office Visit [facility] Electrophysiology [address] [place], [place] [address] [place] [address] [place] [address] [address] [place] [id number] documented as of this encounter Visit Diagnoses Not on filedocumented in this encounter Care Teams Whiskey Filterer Relationship Specialty Start Date End Date Niranjan Mccarty MD [address] [place] [address] PCP - General Adolescent Medicine 10/15/23 documented as of this encounter
--- OUTSIDE RECORDS SUMMARY | 2025-07-26 11:54 | XMS_ITS | Encounter Summary ---
Author Organization [employer] ([place], [place], [place], [place]) Address [address] [place] [address] Care Team Providers Care Rigging Worker Name Role Phone Niranjan Mccarty MD Primary Care Provider [phone] Encounter Details Date Type Department Care Team (Late st Contact Info) Description 06/12/2021 Transcribed Document [facility] [place] [facility] [place] [address] ProviderAkash MD [address] [place] [phone] Social History Tobacco Use Types Packs/Day Years [...] Description 09/07/2025 10:45 AM EDT Office Visit [facility] Electrophysiology [address] [place] [address] Adrienne Dunn MD [address] [facility] [address] [place], [place] [id number] documented as of this encounter Visit Diagnoses Not on filedocumented in this encounter Care Teams Rigging Worker Relationship Specialty Start Date End Date Niranjan Mccarty MD [address] [place] [address] PCP - General Adolescent Medicine 10/15/23 documented as of this encounter
--- OUTSIDE RECORDS SUMMARY | 2025-07-26 11:54 | XMS_ITS | Encounter Summary ---
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 Support Person/Pt Rep Name : daughter- sherley gómez Contact Password : Fan Support Person/Pt Rep Contact Information : sherley- [phone] [place] Family/Rep/Phys Notified of Admit : No Emergency Contact #1 : NA Emergency Contact #1 Phone Number : NA Emergency Contact #1 Relationship : NA Emergency Contact #2 : NA Emergency Contact #2 Phone Number : NA Emergency Contact #2 Relationship : NA Information Obtained From : Patient Primary Language : Hungarian Preferred Communication Mode : Verbal Communication Barrier : None Nursing Surgical Services Director Needed : Marilyn Ruvalcaba Non Emp Traveler [...] Scale Risk Level : 25-45 Medium Risk [place] Fall Interventions : Adequate lighting, Bed in [...] Source : Stated Height Entry Format : [place] Height, Feet : 5 ft(Converted to: 152 cm, 60 Inch) Height, Inches : 7 Inch(Converted to: 0 ft 7 Inch, 17.78 cm) Clinical Height : 170.18 cm Weight Source : Standing scale Weight Entry Format : [place] Clinical Dosing Weight : 65.91 kg Weight, Pounds : 145 lb Body Surface Area (BSA) : 1.77 m2 Body Mass Index : 22.8 kg/m2 [place] Body Weight : 61 kg Ramandeepmarine Marilyn [...] Reina Emp Traveler - 06/12/2021 23:10 EDT [place] Suicide Severity Rating Scale (C-SSRS) CSSRS Past [...] Office Visit [facility] Electrophysiology [address] [place] [address] Adrienne Dunn MD [address] [place] [address] [address] [place] [address] documented as of this encounter Visit Diagnoses Not on filedocumented in this encounter Care Teams Fashion Model Relationship Specialty Start Date End Date Niranjan Mccarty MD [address] [facility] [address] [place] [address] PCP - General Adolescent Medicine 10/15/23 documented as of this encounter
--- OUTSIDE RECORDS SUMMARY | 2025-07-26 11:54 | XMS_ITS | Encounter Summary ---
Author Organization [employer] ([place], [place], [place], [place]) Address [address] [place] [address] Care Team Providers Care Family Assessment Worker Name Role Phone Niranjan Mccarty MD Primary Care Provider [phone] Encounter Details Date Type Department Care Team (Late st Contact Info) Description 08/23/2021 Transcribed Document [facility] [place] Family Medicine [address] [place] [address] ProviderAkash MD [address] [place], [place] [phone] Social History Tobacco Use Types Packs/Day Years [...] : Low risk (0) [place] Interventions : [place] precautions for safety used GEORGINA EVERETT RN - 08/23/2021 13:43 EDT Electronically signed by Sherri Sam Conversion Director Patient Financial Services Cerner at 03/07/2023 1:22 PM CDT documented in this encounter Plan of Treatment Upcoming Encounters Date Type Department Care Team (Late st Contact Info) Description 09/07/2025 10:45 AM EDT Office Visit [facility] Electrophysiology [address] [place] [address] Adrienne Dunn MD [address] [facility] [address] [place] [address] documented as of this encounter Visit Diagnoses Not on filedocumented in this encounter Care Teams Family Assessment Worker Relationship Specialty Start Date End Date Niranjan Mccarty MD [address] [place] [address] PCP - General Adolescent Medicine 10/15/23 documented as of this encounter
--- OUTSIDE RECORDS SUMMARY | 2025-07-26 11:54 | XMS_ITS | Encounter Summary ---
Author Organization [employer] ([place], [place], [place], [place]) Address [address] [place] [address] Care Team Providers Care Biology Department Chair Name Role Phone Niranjan Mccarty MD Primary Care Provider [phone] Encounter Details Date Type Department Care Team (Late st Contact Info) Description 07/14/2025 Orders Only [facility] Electrophysiology [address] [place] [address] Antwan Mckeon RN Paroxysmal atrial fibrillation (HCC) Social History Tobacco Use Types Packs/Day [...] Date Garrett rded Speak language other than Moroccan at home Not on file 11/28/2023 Want [...] EDT Office Visit [facility] Electrophysiology [address] [place] [phone] Adrienne Dunn MD [address] [facility] [address] [place], [place] [phone] documented as of this encounter Visit Diagnoses Diagnosis Paroxysmal atrial fibrillation (HCC) Atrial fibrillation documented in this encounter Care Teams Biology Department Chair Relationship Specialty Start Date End Date Niranjan Mccarty MD [address] [place] [address] PCP - General Adolescent Medicine 10/15/23 documented as of this encounter
--- OUTSIDE RECORDS SUMMARY | 2025-07-26 11:54 | XMS_ITS | Encounter Summary ---
Author Organization [employer] ([place], [place], [place], [place]) Address [address] [place] [address] Care Team Providers Care Global Program Director Name Role Phone Niranjan Mccarty MD Primary Care Provider [phone] Reason for Visit * Reason Onset Date Comments Medication Refill 07/14/2025 Encounter Details Date Type Department Care Team (Late st Contact Info) Description 07/14/2025 Telephone [facility] Cardiology [address] [place] [address] Adrienne Dunn MD [address] [facility] [address] [place] [address] Medication Refill Social History Tobacco Use Types Packs/Day Years [...] Date Garrett rded Speak language other than Nauruan at home Not on file 11/28/2023 Want [...] as of this encounter Miscellaneous Notes * Telephone Encounter - Antwan Mckeon RN - 07/14/2025 11:55 AM EDT Refill sent per patient request. * Telephone Encounter - Ирина Joyce - 07/14/2025 9:05 AM EDT Patient needs refill on her Digoxin 90 day supply sent to [facility] documented in this encounter Plan of Treatment Upcoming Encounters Date Type Department Care Team (Late st Contact Info) Description 09/07/2025 10:45 AM EDT Office Visit [facility] Electrophysiology [address] [place] [phone] [place] [address] [place] [address] [address] [place] [address] documented as of this encounter Visit Diagnoses Not on filedocumented in this encounter Care Teams Global Program Director Relationship Specialty Start Date End Date Niranjan Mccarty MD [address] [place] [address] PCP - General Adolescent Medicine 10/15/23 documented as of this encounter
--- OUTSIDE RECORDS SUMMARY | 2025-07-26 11:54 | XMS_ITS | Encounter Summary ---
Author Organization [employer] ([place], [place], [place], [place]) Address [address] [place] [address] Care Team Providers Care Slab Worker Name Role Phone Niranjan Mccarty MD Primary Care Provider [phone] Encounter Details Date Type Department Care Team (Late st Contact Info) Description 08/23/2021 Transcribed Document [facility] [place] Family Medicine [address] [place] [address] ProviderAkash MD [address] [place], [place] [phone] Social History Tobacco Use Types Packs/Day Years [...] Vega MD - 08/23/2021 1:33 PM CDT [place] Suicide Severity Rating Scale (C-SSRS) Entered On: 08/23/2021 13:46 EDT Performed On: 08/23/2021 13:43 EDT by GEORGINA EVERETT RN [place] Suicide Severity Rating Scale (C-SSRS) CSSRS Past [...] 10:45 AM EDT Office Visit [facility] Electrophysiology [address] [place] [phone] Adrienne Dunn MD [address] [facility] [address] [place], [place] [phone] documented as of this encounter Visit Diagnoses Not on filedocumented in this encounter Care Teams Slab Worker Relationship Specialty Start Date End Date Niranjan Mccarty MD [address] [place] [address] PCP - General Adolescent Medicine 10/15/23 documented as of this encounter
--- OUTSIDE RECORDS SUMMARY | 2025-07-26 11:54 | XMS_ITS | Encounter Summary ---
Author Organization [employer] ([place], [place], [place], [place]) Address [address] [place] [address] Care Team Providers Care Catalog Library Assistant Name Role Phone Niranjan Mccarty MD Primary Care Provider [phone] Encounter Details Date Type Department Care Team (Late st Contact Info) Description 10/10/2019 Transcribed Document [facility] [place] Family Medicine [facility] [place] [address] ProviderAkash MD [address] [place], [place] [address] Social History Tobacco Use Types Packs/Day Years Used Date Smoking Tobacco: Never Assessed Comments Unknown Sex and Gender Information Value Date Recorded Sex Assigned at Not on file Legal Sex Female 1:32 PM CDT Gender Identity Not on file Sexual Orientation Not on file documented as of this encounter Miscellaneous Notes * Cerner Conversion Note - Akash Vega MD - 10/10/2019 11:58 AM CORPORATE BOND TRADER UM Authorization Entered On: 10/10/2019 11:59 EST Performed On: 10/10/2019 11:58 EST by SABRINA MCKEON RN Primary Insurance Authorization Authorization and Policy Numbers : Insurance 1 Health Plan: MEDICARE Policy Number: [id number] Authorization Number: Insurance 2 Health Plan: [facility] Policy Number: [id number] Authorization Number: Insurance Primary Name : MEDICARE Policy Number: [id number] Historical Authorization Comments-Primary : No Authorization Comments Found SABRINA MCKEON RN - 10/10/2019 11:58 EST documented in this encounter Plan of Treatment Upcoming Encounters Date Type Department Care Team (Late st Contact Info) Description 09/07/2025 10:45 AM EDT Office Visit [facility] Electrophysiology [address] [place] [phone] [place] [address] [place] [address] [address] [place] [address] documented as of this encounter Visit Diagnoses Not on filedocumented in this encounter Care Teams Catalog Library Assistant Relationship Specialty Start Date End Date Niranjan Mccarty MD [address] [place] [address] PCP - General Adolescent Medicine 10/15/23 documented as of this encounter
--- OUTSIDE RECORDS SUMMARY | 2025-07-26 11:54 | XMS_ITS | Encounter Summary ---
Author Organization [employer] ([place], [place], [place], [place]) Address [address] [place] [address] Care Team Providers Care Tension Machine Operator Name Role Phone Niranjan Mccarty MD Primary Care Provider [phone] Encounter Details Date Type Department Care Team (Late st Contact Info) Description 06/12/2021 Transcribed Document [facility] [place] [facility] [place] [address] ProviderAkash MD [address] [phone] Social History Tobacco Use Types Packs/Day Years [...] Description of Event : Report called to [facility]. Pt transferred to room 428 MIRTA CRUM RN - 06/12/2021 20:09 EDT Electronically signed by Cecy [facility] Conversion Drop Forge Operator Cerner at 03/07/2023 1:36 PM CDT documented in this encounter Plan of Treatment Upcoming Encounters Date Type Department Care Team (Late st Contact Info) Description 09/07/2025 10:45 AM EDT Office Visit [facility] Electrophysiology [address] [place] [address] Adrienne Dunn MD [address] [facility] [address] [place], [place] [phone] documented as of this encounter Visit Diagnoses Not on filedocumented in this encounter Care Teams Tension Machine Operator Relationship Specialty Start Date End Date Niranjan Mccarty MD [address] [place] [address] PCP - General Adolescent Medicine 10/15/23 documented as of this encounter
--- OUTSIDE RECORDS SUMMARY | 2025-07-26 11:54 | XMS_ITS | Encounter Summary ---
Author Organization [employer] ([place], [place], [place], [place]) Address [address] [place] [address] Care Team Providers Care Fire Apparatus Sprinkler Inspector Name Role Phone Niranjan Mccarty MD Primary Care Provider [phone] Encounter Details Date Type Department Care Team (Late st Contact Info) Description 08/23/2021 Transcribed Document [facility] [place] Family Medicine Counts include [address] beds at [facility] [place] [address] ProviderAkash MD [address] [place] [address] Social History Tobacco Use Types [...] 6:35 PM CDT Electronically signed by Cecy [facility] Conversion Chemical Equipment Repairer Cerner at 03/07/2023 1:37 PM CDT documented in this encounter Plan of Treatment Upcoming Encounters Date Type Department Care Team (Late st Contact Info) Description 09/07/2025 10:45 AM EDT Office Visit [facility] Electrophysiology [address] [place] [address] Adrienne Dunn MD [address] [place] [address] [address] [place] [address] documented as of this encounter Visit Diagnoses Not on filedocumented in this encounter Care Teams Fire Apparatus Sprinkler Inspector Relationship Specialty Start Date End Date Niranjan Mccarty MD [address] [place] [address] PCP - General Adolescent Medicine 10/15/23 documented as of this encounter
--- OUTSIDE RECORDS SUMMARY | 2025-07-26 11:54 | XMS_ITS | Referral Summary ---
Author Organization [employer] ([place], [place], [place], [place]) Address [address] [place] [address] Care Team Providers Care Top Carrier Name Role Phone Niranjan Mccarty MD Primary Care Provider [phone] Encounters Date Type Department Care Team Description 07/14/2025 Orders Only [facility] Electrophysiology [address] [place] [address] Antwan Mckeon RN Paroxysmal atrial fibrillation (HCC) 07/14/2025 Orders Only [facility] Electrophysiology [address] [place] [address] Antwan Mckeon RN Paroxysmal atrial fibrillation (HCC) 07/14/2025 Telephone [facility] Cardiology [address] [place] [address] Adrienne Dunn MD Medication Refill from Last 3 Months Allergies Active Allergy [...] Date Garrett rded Speak language other than Eritrean at home Not on file 11/28/2023 Want [...] EDT Office Visit [facility] Electrophysiology [address] [place] [address] Adrienne Dunn MD [address] [facility] [address] [place] [address] Medical Devices Implanted Type Area Muffler Installer Device Identifier Shelf Expiration Date Model / Serial / Lot Pacemakers-06/13 Implanted:06/13 (Quantity not on file) Pacemakers [employer] JODY / [id number] / Description:DEPENDENT Insurance MEDICARE PART A B Care Teams Top Carrier Relationship Specialty Start Date End Date Niranjan Mccarty MD [address] [place] [address] PCP - General Adolescent Medicine 10/15/23
--- OUTSIDE RECORDS SUMMARY | 2025-07-26 11:54 | XMS_ITS | Encounter Summary ---
Author Organization [employer] ([place], [place], [place], [place]) Address [address] [place] [address] Care Team Providers Care Degreaser Operator Name Role Phone Niranjan Mccarty MD Primary Care Provider [phone] Encounter Details Date Type Department Care Team (Late st Contact Info) Description 08/23/2021 Transcribed Document [facility] [place] [facility] [address] ProviderAkash MD [address] [place], [place] [id number] Social History Tobacco Use Types Packs/Day Years [...] : 2 - Emergent Tracking Group : [facility] ED GEORGINA EVERETT RN - 08/23/2021 13:34 EDT Mode of Arrival : Stretcher Transported to ED by : Ambulance/ALS EMS Service : [facility] To Room Via : Stretcher Accompanied [...] 08/23/2021 13:42:42 EDT) Problems(Active) Anxiety (SNOMED CT :93631273 ) Name of Problem: Anxiety ; Recorder: JOSE TYSON RN; Confirmation: Confirmed ; Classification: Patient Stated ; Code: 29669572 ; Contributor System: Winster ; Last Updated: 12/08/2014 8:41 EST ; Life Cycle Date: 12/08/2014 ; Life Cycle Status: Active ; Vocabulary: SNOMED CT Arthritis (SNOMED CT :5811020 ) Name of Problem: Arthritis ; Recorder: Nory Farfan RN; Confirmation: Confirmed ; Classification: Patient Stated ; Code: 2074910 ; Contributor System: Winster ; Last Updated: 06/12/2021 12:48 EDT ; Life Cycle Date: 06/12/2021 ; Life Cycle Status: Active ; Vocabulary: SNOMED CT At risk for sleep apnea (IMO :71916804 ) Name of Problem: At risk for sleep apnea ; Recorder: SYSTEM, SYSTEM; Confirmation: Confirmed ; Classification: Medical ; Code: 06077441 ; Last Updated: 10/09/2019 21:47 EST ; Life Cycle Date: 10/09/2019 ; Life Cycle Status: Active ; Vocabulary: IMO Atrial fibrillation (SNOMED CT :49628063 ) Name of Problem: Atrial fibrillation ; Recorder: JOSE TYSON RN; Confirmation: Confirmed ; Classification: Patient Stated ; Code: 01712477 ; Contributor System: Winster ; Last Updated: 12/08/2014 8:42 EST ; Life Cycle Date: 12/08/2014 ; Life Cycle Status: Active ; Vocabulary: SNOMED CT Atrial fibrillation (SNOMED CT :12727058 ) Name of Problem: Atrial fibrillation ; Recorder: DUANE TAVERA APRN; Confirmation: Confirmed ; Classification: Medical ; Code: 89853329 ; Contributor System: PowerChart ; Last Updated: 10/10/2019 11:36 EST ; Life Cycle Status: Active ; Vocabulary: SNOMED CT Chronic CHF (SNOMED CT :742109780 ) Name of Problem: Chronic CHF ; Recorder: JOSE TYSON RN; Confirmation: Confirmed ; Classification: Patient Stated ; Code: 640246198 ; Contributor System: PowerChart ; Last Updated: 12/08/2014 8:43 EST ; Life Cycle Date: 12/08/2014 ; Life Cycle Status: Active ; Vocabulary: SNOMED CT Chronic obstructive pulmonary disease (COPD) (SNOMED CT :76792616 ) Name of Problem: Chronic obstructive pulmonary disease (COPD) ; Recorder: Nory Farfan RN; Confirmation: Confirmed ; Classification: Patient Stated ; Code: 03115644 ; Contributor System: PowerChart ; Last Updated: 06/12/2021 12:49 EDT ; Life Cycle Date: 06/12/2021 ; Life Cycle Status: Active ; Vocabulary: SNOMED CT Chronic respiratory failure (SNOMED CT :86997658 ) Name of Problem: Chronic respiratory failure ; Recorder: JOSE TYSON RN; Confirmation: Confirmed ; Classification: Patient Stated ; Code: 73742580 ; Contributor System: PowerChart ; Last Updated: 12/08/2014 8:42 EST ; Life Cycle Date: 12/08/2014 ; Life Cycle Status: Active ; Vocabulary: SNOMED CT Diverticulosis (SNOMED CT :3465094361 ) Name of Problem: Diverticulosis ; Recorder: Nory Farfan RN; Confirmation: Confirmed ; Classification: Patient Stated ; Code: 6048063818 ; Contributor System: PowerChart ; Last Updated: 06/12/2021 12:48 EDT ; Life Cycle Date: 06/12/2021 ; Life Cycle Status: Active ; Vocabulary: SNOMED CT Fibromyalgia (SNOMED CT :919027971 ) Name of Problem: Fibromyalgia ; Recorder: Nory Farfan RN; Confirmation: Confirmed ; Classification: Patient Stated ; Code: 256084803 ; Contributor System: PowerChart ; Last Updated: 06/12/2021 12:48 EDT ; Life Cycle Date: 06/12/2021 ; Life Cycle Status: Active ; Vocabulary: SNOMED CT H/O hyperlipidemia (SNOMED CT :997924467 ) Name of Problem: H/O hyperlipidemia ; Recorder: JOSE TYSON RN; Confirmation: Confirmed ; Classification: Patient Stated ; Code: 313486249 ; Contributor System: PowerChart ; Last Updated: 12/08/2014 8:43 EST ; Life Cycle Date: 12/08/2014 ; Life Cycle Status: Active ; Vocabulary: SNOMED CT H/O sick sinus syndrome (SNOMED CT :643138620 ) Name of Problem: H/O sick sinus syndrome ; Recorder: JOSE TYSON RN; Confirmation: Confirmed ; Classification: Patient Stated ; Code: 888582487 ; Contributor System: PowerChart ; Last Updated: 12/08/2014 8:43 EST ; Life Cycle Date: 12/08/2014 ; Life Cycle Status: Active ; Vocabulary: SNOMED CT Hyperlipidemia (SNOMED CT :92570874 ) Name of Problem: Hyperlipidemia ; Recorder: AYSE; Confirmation: Confirmed ; Classification: Medical ; Code: 81985181 ; Contributor System: PowerChart ; Last Updated: 10/10/2019 11:36 EST ; Life Cycle Status: Active ; Vocabulary: SNOMED CT Hypertension (SNOMED CT :65095223 ) Name of Problem: Hypertension ; Recorder: AMANDA; Confirmation: Confirmed ; Classification: Medical ; Code: 08992222 ; Contributor System: PowerChart ; Last Updated: 10/10/2019 11:36 EST ; Life Cycle Status: Active ; Vocabulary: SNOMED CT Leg swelling (SNOMED CT :9826943528 ) Name of Problem: Leg swelling ; Recorder: JOSE TYSON RN; Confirmation: Confirmed ; Classification: Patient Stated ; Code: 3244472932 ; Contributor System: PowerChart ; Last Updated: 12/08/2014 8:44 EST ; Life Cycle Date: 12/08/2014 ; Life Cycle Status: Active ; Vocabulary: SNOMED CT Diagnoses(Active) Weakness Date: 08/23/2021 ; Diagnosis Type: Reason For Visit ; Confirmation: Complaint of ; Clinical Dx: Weakness ; Classification: Medical ; Clinical Service: Emergency medicine ; Code: PNED ; Probability: 0 ; Diagnosis Code: [id number] ED Height and Weight Height Source : Stated Height Entry Format : [place] Height, Feet : 5 ft(Converted to: 152 cm, 60 Inch) Height, Inches : 7 Inch(Converted to: 0 ft 7 Inch, 17.78 cm) Clinical Height : 170.18 cm Weight Source, ED : Critical estimated dosing weight Weight Entry Format : [place] Weight, Pounds : 140 lb Clinical Dosing Weight : 63.64 kg Body Surface Area (BSA) : 1.74 m2 Body Mass Index : 22 kg/m2 [place] Body Weight (IBW) : 61.16 kg GEORGINA EVERTET RN - 08/23/2021 13:34 EDT Electronically signed by [facility], [facility] Conversion Music Director Cerner at 03/07/2023 1:28 PM CDT documented in this encounter Plan of Treatment Upcoming Encounters Date Type Department Care Team (Late st Contact Info) Description 09/07/2025 10:45 AM EDT [facility] Visit [facility] Electrophysiology [address] [place], [place] [phone] Adrienne Dunn MD [address] [place] [address] [address] [place] [address] documented as of this encounter Visit Diagnoses Not on filedocumented in this encounter Care Teams Degreaser Operator Relationship Specialty Start Date End Date Niranjan Mccarty MD [address] [place] [address] PCP - General Adolescent Medicine 10/15/23 documented as of this encounter
--- OUTSIDE RECORDS SUMMARY | 2025-07-26 11:54 | XMS_ITS | Encounter Summary ---
Author Organization [employer] ([place], [place], [place], [place]) Address [address] [place] [address] Care Team Providers Care Pony Ride Operator Name Role Phone Niranjan Mccarty MD Primary Care Provider [phone] Encounter Details Date Type Department Care Team (Late st Contact Info) Description 06/13/2021 Transcribed Document [facility] [place] [facility] [place] [address] ProviderAkash MD [address] [place], [place] [phone] Social History Tobacco Use Types Packs/Day Years [...] On: 06/13/2021 13:14 EDT by SHERRILL JUÁREZ, RN-Waste Removalist Final Discharge Planning Discharge Arrangements : Patient [...] : Yes Discharge To Care Management : Home/Residential/Nursing Home or Self Care -01 SHERRILL JUÁREZ, RN-Waste Removalist - 06/13/2021 13:14 EDT documented in this encounter Plan of Treatment Upcoming Encounters Date Type Department Care Team (Late st Contact Info) Description 09/07/2025 10:45 AM EDT Office Visit [facility] [address] [place], [place] [phone] [place] [address] [place] [address] [address] [place] [address] documented as of this encounter Visit Diagnoses Not on filedocumented in this encounter Care Teams Pony Ride Operator Relationship Specialty Start Date End Date Niranjan Mccarty MD [address] [place] [address] PCP - General Adolescent Medicine 10/15/23 documented as of this encounter
--- OUTSIDE RECORDS SUMMARY | 2025-07-26 11:54 | XMS_ITS | Encounter Summary ---
Author Organization [employer] ([place], [place], [place], [place]) Address [address] [place] [address] Care Team Providers Care Drapery Cutter Name Role Phone Niranjan Mccarty MD Primary Care Provider [phone] Encounter Details Date Type Department Care Team (Late st Contact Info) Description 10/10/2019 Transcribed Document [facility] [place] [address] ProviderAkash MD [address] [place] [phone] Social History Tobacco Use Types Packs/Day Years Used Date Smoking Tobacco: Never Assessed Comments Unknown Sex and Gender Information Value Date Recorded Sex Assigned at Not on file Legal Sex Female 1:32 PM CDT Gender Identity Not on file Sexual Orientation Not on file documented as of this encounter Miscellaneous Notes * Cerner Conversion Note - Akash Vega MD - 10/10/2019 8:07 AM HEALTH POLICY ANALYST Patient: TRAN PEGUERO Age: 83 years [...] Daily PT/INR ordered Nataly Diaz PharmD PGY-1 Casing Splitter Pager: [phone] Electronically signed by Cecy [facility] Conversion Dry Chain Puller Cerner at 03/07/2023 1:42 PM CDT documented in this encounter Plan of Treatment Upcoming Encounters Date Type Department Care Team (Late st Contact Info) Description 09/07/2025 10:45 AM EDT Office Visit [facility] Electrophysiology [address] [place] [address] [place] [address] [place] [address] [address] [place] [address] documented as of this encounter Visit Diagnoses Not on filedocumented in this encounter Care Teams Drapery Cutter Relationship Specialty Start Date End Date Niranjan Mccarty MD [address] [place] [address] PCP - General Adolescent Medicine 10/15/23 documented as of this encounter
--- OUTSIDE RECORDS SUMMARY | 2025-07-26 11:54 | XMS_ITS | Encounter Summary ---
Author Organization [employer] ([place], [place], [place], [place]) Address [address] [place] [address] Care Team Providers Care Plastering Supervisor Name Role Phone Niranjan Mccarty MD Primary Care Provider [phone] Encounter Details Date Type Department Care Team (Late st Contact Info) Description 08/23/2021 Transcribed Document [facility] [place] Counts include 234 beds at the [facility] [address] ProviderAkash MD [address] [place] [id number] Social History Tobacco Use Types Packs/Day Years [...] 08/23/2021 22:15 EDT Electronically signed by Cecy [facility] Conversion Hydroelectric Station Operator Chief Cerner at 03/07/2023 1:36 PM CDT documented in this encounter Plan of Treatment Upcoming Encounters Date Type Department Care Team (Late st Contact Info) Description 09/07/2025 10:45 AM EDT Office Visit [facility] Electrophysiology [address] [place] [phone] Adrienne Dunn MD [address] [place] [address] [address] [place] [address] documented as of this encounter Visit Diagnoses Not on filedocumented in this encounter Care Teams Plastering Supervisor Relationship Specialty Start Date End Date Niranjan Mccarty MD [address] [place] [address] PCP - General Adolescent Medicine 10/15/23 documented as of this encounter
--- OUTSIDE RECORDS SUMMARY | 2025-07-26 11:54 | XMS_ITS | Encounter Summary ---
Author Organization [employer] ([place], [place], [place], [place]) Address [address] [place] [address] Care Team Providers Care Fruit Packer Face And Fill Name Role Phone Niranjan Mccarty MD Primary Care Provider [phone] Encounter Details Date Type Department Care Team (Late st Contact Info) Description 06/12/2021 Transcribed Document [facility] [place] [address] ProviderAkash MD [address] [place] [phone] Social History Tobacco Use Types Packs/Day Years [...] Age: 85 Years Sex: Female : 1935 Plaster Die Maker: Julián Amaya MD Indication: dual chamber pacemaker [...] generator was a Medtronic model [id number] SN [id number] that replaced the old generator. Complications: No [...] Office Visit [facility] Electrophysiology [address] [place] [phone] Adrienne Dunn MD [address] [facility] [address] [place], [place] [phone] documented as of this encounter Visit Diagnoses Not on filedocumented in this encounter Care Teams Fruit Packer Face And Fill Relationship Specialty Start Date End Date Niranjan Mccarty MD [address] [place] [address] PCP - General Adolescent Medicine 10/15/23 documented as of this encounter
--- OUTSIDE RECORDS SUMMARY | 2025-07-26 11:54 | XMS_ITS | Encounter Summary ---
Author Organization [employer] ([place], [place], [place], [place]) Address [address] [place] [address] Care Team Providers Care Practice Office Associate Name Role Phone Niranjan Mccarty MD Primary Care Provider [phone] Encounter Details Date Type Department Care Team (Late st Contact Info) Description 06/13/2021 Transcribed Document [facility] [place] [address] [place] [address] ProviderAkash MD [address] [place], [place] [phone] Social History Tobacco Use Types Packs/Day Years [...] Insurance 1 Health Plan: MEDICARE Policy Number: [id number] Authorization Number: Insurance 2 Health Plan: [facility] Policy Number: [id number] Authorization Number: Insurance Primary Name : MEDICARE Authorized Service Begin Date-Primary : 06/12/2021 EDT Historical Authorization Comments-Primary : No Authorization Comments Found Jen Rothman Rn-Utilization Review - 06/13/2021 13:21 EDT Electronically signed by Cecy [facility] Conversion Design Director Cerner at 03/07/2023 1:31 PM CDT documented in this encounter Plan of Treatment Upcoming Encounters Date Type Department Care Team (Late st Contact Info) Description 09/07/2025 10:45 AM EDT Office Visit [facility] Electrophysiology [address] [place] [phone] Adrienne Dunn MD [address] [place] [address] [address] [place] [phone] documented as of this encounter Visit Diagnoses Not on filedocumented in this encounter Care Teams Practice Office Associate Relationship Specialty Start Date End Date Niranjan Mccarty MD [address] [place] [address] PCP - General Adolescent Medicine 10/15/23 documented as of this encounter
--- OUTSIDE RECORDS SUMMARY | 2025-07-26 11:54 | XMS_ITS | Encounter Summary ---
Author Organization [employer] ([place], [place], [place], [place]) Address [address] [place] [address] Care Team Providers Care Local Company Hazmat Driver Name Role Phone Niranjan Mccarty MD Primary Care Provider [phone] Encounter Details Date Type Department Care Team (Late st Contact Info) Description 08/23/2021 Transcribed Document [facility] [place] [facility] [place] [address] ProviderAkash MD [address] [place] [phone] Social History Tobacco Use Types Packs/Day Years [...] as documented in chart. Surgical history: Appendectomy; (75231). cataract surgery. Cholecystectomy; (08281). eye surgery. foot surgery right. hand surgery. [...] EDT Height Source Stated Height Entry Format [place] Height/Length, SOUTH AFRICAN (ft) 5 ft Height/Length SOUTH AFRICAN 7 Inch CLINICALHEIGHT 170.18 cm Power Body Weight 61.16 kg Weight Source, ED Critical estimated dosing weight Weight Entry Format [place] Weight Gambian lb 140 lb CLINICALWEIGHT 63.64 kg Body [...] Triage: ED C-SSRS: ED Clinical Reconciliation: ED float operator: EKG: Lactic Acid Level with Reflex if [...] 15.1 % LOW Lymph # 1.28 K/uL Yancey % 5.9 % Yancey # 0.50 K/uL Eos % 3.3 % Eos # 0.28 Baso % 0.2 % Baso # 0.02 Slide Review No Urine Type. U CleanCatch Urine Color Yellow Urine Appearance Clear Urine Specific [place] 1.007 Urine pH Dipstick *8.0 Urine Leukocyte Esterase Negative Urine Nitrite Negative Urine Protein Dipstick Negative Urine Glucose Dipstick Negative Urine Ketones Dipstick Negative Urine Urobilinogen Dipstick 0.2 EU/dL Urine Bilirubin Dipstick Negative Urine Blood Dipstick Small Ur RBC 5-10 /HPF Ur WBC 0-2 /HPF Urine Culture if Indicated Not Indicated . Radiology results: Radiology Results (Last 48 hours) [id number] -- 08/23/2021 13:33 CR Chest 1 Vw [...] EDT, Discharge to: Home . Prescriptions: Prescription Candy [facility]: Medrol Dosepak 4 mg oral tablet [...] EDT Office Visit [facility] Electrophysiology [address] [place], [place] [phone] [place] [address] [place] [address] [address] [place] [phone] documented as of this encounter Visit Diagnoses Not on filedocumented in this encounter Care Teams Local Company Hazmat Driver Relationship Specialty Start Date End Date Niranjan Mccarty MD [address] [place] [address] PCP - General Adolescent Medicine 10/15/23 documented as of this encounter
--- OUTSIDE RECORDS SUMMARY | 2025-07-26 11:54 | XMS_ITS | Encounter Summary ---
Author Organization [employer] ([place], [place], [place], [place]) Address [address] [place] [address] Care Team Providers Care Collection Teller Name Role Phone Niranjan Mccarty MD Primary Care Provider [phone] Encounter Details Date Type Department Care Team (Late st Contact Info) Description 08/24/2021 Transcribed Document [facility] [place] [address] [place] [address] ProviderAkash MD [address] [place] [address] Social History Tobacco Use Types [...] 09/07/2025 10:45 AM EDT Office Visit [address] [address] Adrienne Dunn MD [address] [facility] [address] [place] [address] documented as of this encounter Visit Diagnoses Not on filedocumented in this encounter Care Teams Collection Teller Relationship Specialty Start Date End Date Niranjan Mccarty MD [address] [place] [address] PCP - General Adolescent Medicine 10/15/23 documented as of this encounter
--- OUTSIDE RECORDS SUMMARY | 2025-07-26 11:54 | XMS_ITS | Encounter Summary ---
Author Organization [employer] ([place], [place], [place], [place]) Address [address] [place] [address] Care Team Providers Care Sfdc Consultant Name Role Phone Niranjan Mccarty MD Primary Care Provider [phone] Encounter Details Date Type Department Care Team (Late st Contact Info) Description 07/14/2025 Orders Only [facility] Electrophysiology [address] [place] [phone] Antwan Mckeon RN Paroxysmal atrial fibrillation [...] Visit [facility] Electrophysiology [address] [place] [phone] Adrienne Dunn MD [address] [facility] [address] [place], [place] [phone] documented as of this encounter Visit Diagnoses Diagnosis Paroxysmal atrial fibrillation (HCC) Atrial fibrillation documented in this encounter Care Teams Sfdc Consultant Relationship Specialty Start Date End Date Niranjan Mccarty MD [address] [place] [address] PCP - General Adolescent Medicine 10/15/23 documented as of this encounter
--- OUTSIDE RECORDS SUMMARY | 2025-07-26 11:54 | XMS_ITS | Encounter Summary ---
Author Organization [employer] ([place], [place], [place], [place]) Address [address] [place] [address] Care Team Providers Care Gas Attendant Name Role Phone Niranjan Mccarty MD Primary Care Provider [phone] Encounter Details Date Type Department Care Team (Late st Contact Info) Description 10/10/2019 Transcribed Document [facility] [place] [address] [place] [address] ProviderAkash MD [address] [place] [address] Social History Tobacco Use Types [...] - Historical ProviderMD - 10/10/2019 5:00 AM UTILITY BILL COLLECTOR Chart Check - Review Order Profile Entered On: 10/10/2019 4:41 EST Performed On: 10/10/2019 5:00 EST by MEKA MANSFIELD RN Chart Check All Active Orders Reviewed : Yes MEKA MANSFIELD RN - 10/10/2019 4:41 EST documented in this encounter Plan of Treatment Upcoming Encounters Date Type Department Care Team (Late st Contact Info) Description 09/07/2025 10:45 AM EDT Office Visit [address] [address] Adrienne Dunn MD [address] [facility] [address] [place], [place] [phone] documented as of this encounter Visit Diagnoses Not on filedocumented in this encounter Care Teams Gas Attendant Relationship Specialty Start Date End Date Niranjan Mccarty MD [address] [place] [address] PCP - General Adolescent Medicine 10/15/23 documented as of this encounter
--- OUTSIDE RECORDS SUMMARY | 2025-07-26 11:54 | XMS_ITS | Encounter Summary ---
Author Organization [employer] ([place], [place], [place], [place]) Address [address] [place] [address] Care Team Providers Care Correctional Security Officer Name Role Phone Niranjan Mccarty MD Primary Care Provider [phone] Encounter Details Date Type Department Care Team (Late st Contact Info) Description 06/13/2021 Transcribed Document [facility] [place] [facility] [place] [address] ProviderAkash MD [address] [place], [place] [phone] Social History Tobacco Use Types Packs/Day Years [...] Cardiology Discharge Note - EP Primary Electronic Field Service Engineer: PCP: Niranjan Chavira Consults: NONE History of [...] Normal range of motion. Integumentary: Warm, Dry, [place]. PPM site left SC dressing dry and [...] in 5 - 7 days. Primary Electronic Field Service Engineer in [address] Dunn in 1 week for wound/device check and OK to resume Coumadin Patient has been instructed on and verbalized an understanding of the above discharge instructions. Plan has been discussed and is in agreement with Dr. Jose Luis Pryor, RN documenting for Dr. Amaya Electronically signed by [facility], [facility] Conversion Interpreter And Translator Cerner at 03/07/2023 1:27 PM CDT documented in this encounter Plan of Treatment Upcoming Encounters Date Type Department Care Team (Late st Contact Info) Description 09/07/2025 10:45 AM EDT Office Visit [facility] Electrophysiology [address] [place] [phone] [place] [address] [place] [address] [address] [place], [place] [phone] documented as of this encounter Visit Diagnoses Not on filedocumented in this encounter Care Teams Correctional Security Officer Relationship Specialty Start Date End Date Niranjan Mccarty MD [address] [place] [address] PCP - General Adolescent Medicine 10/15/23 documented as of this encounter
--- OUTSIDE RECORDS SUMMARY | 2025-07-26 11:54 | XMS_ITS | Encounter Summary ---
Author Organization [employer] ([place], [place], [place], [place]) Address [address] [place] [address] Care Team Providers Care Sharples Machine Operator Name Role Phone Niranjan Mccarty MD Primary Care Provider [phone] Encounter Details Date Type Department Care Team (Late st Contact Info) Description 10/10/2019 Transcribed Document [facility] [place] Family Medicine [facility] [place] [address] ProviderAkash MD [address] [place] [address] Social History Tobacco Use Types Packs/Day [...] Akash Vega MD - 10/10/2019 9:00 PM SHIP'S CAPTAIN Pain Assessment Entered On: 10/10/2019 22:55 EST Performed On: 10/10/2019 21:06 EST by MEKA MANSFIELD RN Intervention Information: traMADol Performed by MEKA MANSFIELD RN on 10/10/2019 20:06:00 EST traMADol,50mg Oral Pain Assessment Pain Assessment : Follow-up assessment Pain Scale Goal : 4 Pain Improved by Intervention : Yes MEKA MNASFIELD RN - 10/10/2019 22:55 EST documented in this encounter Plan of Treatment Upcoming Encounters Date Type Department Care Team (Late st Contact Info) Description 09/07/2025 10:45 AM EDT Office Visit [facility] Electrophysiology [address] [place] [address] Adrienne Dunn MD [address]01 [facility] [address] [place], [place] [id number] documented as of this encounter Visit Diagnoses Not on filedocumented in this encounter Care Teams Sharples Machine Operator Relationship Specialty Start Date End Date Niranjan Mccarty MD [address] [place] [address] PCP - General Adolescent Medicine 10/15/23 documented as of this encounter
--- OUTSIDE RECORDS SUMMARY | 2025-07-26 11:54 | XMS_ITS | Encounter Summary ---
Author Organization [employer] ([place], [place], [place], [place]) Address [address] [place] [address] Care Team Providers Care Heating Element Repairer Name Role Phone Niranjan Mccarty MD Primary Care Provider [phone] Encounter Details Date Type Department Care Team (Late Contact Info) Description 08/22/2023 Telephone [facility] Cardiology [address] [facility], [address] [address] Patrick Travis DO 1250 [facility] [address] [place] [address] Social History Tobacco Use Types Packs/Day [...] Visit [facility] Electrophysiology [address] [place] [address] Adrienne Dunn MD 1401 [facility] [address] [place] [address] documented as of this encounter Visit Diagnoses Not on filedocumented in this encounter Care Teams Heating Element Repairer Relationship Specialty Start Date End Date Niranjan Mccarty MD [address] [place] [address] PCP - General Adolescent Medicine 10/15/23 documented as of this encounter
--- OUTSIDE RECORDS SUMMARY | 2025-07-26 11:54 | XMS_ITS | Encounter Summary ---
Author Organization [email or web address] ([place], [place], [place], [place]) Address [address] [place] [address] Care Team Providers Care Ocean Biologist Name Role Phone Niranjan Mccarty MD Primary Care Provider [phone] Encounter Details Date Type Department Care Team (Late st Contact Info) Description 06/13/2021 Transcribed Document [facility] [place] Family Medicine [address] [place] [address] ProviderAkash MD [address] [place], [place] [address] Social History Tobacco Use Types Packs/Day Years [...] Fats and oils Meat fat, or shortening. [place]on butter, hydrogenated oils, palm oil, coconut oil, [...] Reviewed: 12/11/2018 Elsevier Patient Education ? 2020 E[employer]oke, [employer] Inc. Procedures Biventricular Pacemaker Implantation, Care After [...] these instructions at home: Medicines ??? Take tcoq-cqw-xefgmee and prescription medicines only as told by [...] and water are not available, use hand plastics technician. ? Change your dressing as told by [...] your chest for several days. ??? Take vsjn-kbc-jykhcrd and prescription medicines only as told by [...] Reviewed: 10/04/2019 Elsevier Patient Education ? 2019 [employer]. documented in this encounter Plan of Treatment Upcoming Encounters Date Type Department Care Team (Late st Contact Info) Description 09/07/2025 10:45 AM EDT Office Visit [facility] Electrophysiology [address] [place] [id number] Adrienne Dunn MD 1401 [facility] [address] [place] [address] documented as of this encounter Visit Diagnoses Not on filedocumented in this encounter Care Teams Ocean Biologist Relationship Specialty Start Date End Date Niranjan Mccarty MD [address] [place] [address] PCP - General Adolescent Medicine 10/15/23 documented as of this encounter
--- OUTSIDE RECORDS SUMMARY | 2025-07-26 11:54 | XMS_ITS | Encounter Summary ---
Author Organization [employer] ([place], [place], [place], [place]) Address [address] [place] [address] Care Team Providers Care Account Development Representative Name Role Phone Niranjan Mccarty MD Primary Care Provider [phone] Encounter Details Date Type Department Care Team (Late st Contact Info) Description 06/13/2021 Transcribed Document [facility] Family Medicine [facility] [place] [address] ProviderAkash MD [address] [place] [id number] Social History Tobacco Use Types Packs/Day Years [...] Description 09/07/2025 10:45 [place] [address] Adrienne Dunn MD 1401 [facility] [address] [place] [phone] documented as of this encounter Visit Diagnoses Not on filedocumented in this encounter Care Teams Account Development Representative Relationship Specialty Start Date End Date Niranjan Mccarty MD [address] [place] [address] PCP - General Adolescent Medicine 10/15/23 documented as of this encounter
--- OUTSIDE RECORDS SUMMARY | 2025-07-26 11:54 | XMS_ITS | Encounter Summary ---
Author Organization [employer] ([place], [place], [place], [place]) Address [address] [place] [address] Care Team Providers Care Cementer Helper Name Role Phone Niranjan Mccarty MD Primary Care Provider [phone] Encounter Details Date Type Department Care Team (Late st Contact Info) Description 06/13/2021 Transcribed Document [facility] Family Medicine [facility] [place] [address] ProviderAkash MD [address] [place] [address] Social History Tobacco Use Types [...] Vega MD - 06/13/2021 3:30 PM CDT [facility] [place] [id number] WILD TRANDAREN MENDOZA :1935 Visit Time:06/12/2021 Your [...] been made Where: [facility] [address] [place] [address]- Business (1) Medications What How Much When [...] these instructions at home: Medicines ??? Take xksl-sxa-rsxewhf and prescription medicines only as told by [...] and water are not available, use hand sewing machine bobbin winder. ? Change your dressing as told by [...] your chest for several days. ??? Take hwbw-znr-srlfyuk and prescription medicines only as told by [...] Reviewed: 10/04/2019 Elsevier Patient Education ?? 2020 ElseSlimTrader Inc. Heart-Healthy Eating Plan Heart-healthy meal planning [...] Fats and oils Meat fat, or shortening. [place] butter, hydrogenated oils, palm oil, coconut oil, [...] provider. Document Revised: 01/07/2019 Document Reviewed: 12/11/2018 [employer] Patient Education ?? 2020 [employer]Flow Medical. Emergency Awareness and Preventative Care STROKE is [...] Assistance with quitting is available by contacting 7-649-IVWG-NOW. This is a free resource providing counseling, [...] range between ( 0.0 and 7.0 ) Barry #: 0.48 K/uL -- Normal range between ( 0.16 and 1.00 ) Eos #: 0.16 x10(3)/uL -- Normal range between ( 0.00 and 0.80 ) Barry %: 8.0 % -- Normal range between [...] was given the opportunity to ask questions. Patient/French Polisher Name: Patient/French Polisher Signature: Relationship to Patient: Clinician/Hospital French Polisher Signature: Date: Electronically signed by Cecy, [facility] Conversion Newspaper Library Manager Cerner at 03/07/2023 1:48 PM CDT documented in this encounter Plan of Treatment Upcoming Encounters Date Type Department Care Team (Late st Contact Info) Description 09/07/2025 10:45 AM EDT Office Visit [address] [address] Adrienne Dunn MD [address] [place] [address] [address] [place] [address] documented as of this encounter Visit Diagnoses Not on filedocumented in this encounter Care Teams Cementer Helper Relationship Specialty Start Date End Date Niranjan Mccarty MD [address] [place] [address] PCP - General Adolescent Medicine 10/15/23 documented as of this encounter
--- OUTSIDE RECORDS SUMMARY | 2025-07-26 11:54 | XMS_ITS | Encounter Summary ---
Author Organization [employer] ([place], [place], [place], [place]) Address [address] [place] [address] Care Team Providers Care Broodmare Barn Groom Name Role Phone Niranjan Mccarty MD Primary Care Provider [phone] Encounter Details Date Type Department Care Team (Late st Contact Info) Description 08/23/2021 Transcribed Document [facility] [address] [place] [address] ProviderAkash MD [address] [place], [place] [phone] Social History Tobacco Use Types Packs/Day Years [...] Communication Barrier : None Primary Language : Malian Any Spiritual/Cultural Needs or Requests : No [...] pacemaker was working on their monitor [GEORGINA VEERETT RN - 08/23/2021 13:43 EDT] ) GEORGINA [...] Visit [facility] Electrophysiology [address] [place] [address] Adrienne Dunn MD [address] [place] [address] [address] [place] [address] documented as of this encounter Visit Diagnoses Not on filedocumented in this encounter Care Teams Broodmare Barn Groom Relationship Specialty Start Date End Date Niranjan Mccarty MD [address] [place] [address] PCP - General Adolescent Medicine 10/15/23 documented as of this encounter
[2025-07-26 12:17] LABS: PHA INR Fingerstick 2.2 (0.9-1.1)
== END 2025-07-26 12:18 ==
LOC: ACC 11:48
PROVIDERS: PCP Internal Medicine Adolescent Medicine; Visit Provider Internal Medicine Adolescent Medicine
DX: Z79.01 Long term (current) use of anticoagulants (principal)
CPT/HCPCS: 85610; 99211; G0463

== ENCOUNTER 2025-08-30 10:53 | Outpatient (CLI) | payer MEDICARE, OTHER, SELFPAY ==
--- OUTSIDE RECORDS SUMMARY | 2025-07-06 03:00 | XMS_ITS | Encounter Summary ---
Author Organization [employer] ([place], [place], [place], [place]) Address [address] [place] [address] Care Team Providers Care Residential Sales Name Role Phone Niranjan Mccarty MD Primary Care Provider [phone] Reason for Visit * Reason Comments Pacemaker /ICD Home Monitoring Encounter Details Date Type Department Care Team (Late st Contact Info) Description 07/06/2025 3:00 AM EDT Clinical Support [facility] Electrophysiology [address] [place], [place] [phone] [place] [address] [place] [address] [address] [place] [address] Encounter for adjustment or management [...] Date Garrett rded Speak language other than Dutch at home Not on file 11/28/2023 Want [...] Care Team (Late st Contact Info) Description 10/31/2025 11:15 AM EST Office Visit [facility] Electrophysiology [address] [place] [phone] [place] [address] [place] [address] [address] [place] [phone] documented as of this encounter Visit Diagnoses Diagnosis Encounter for adjustment or management of cardiac device- Primary Paroxysmal atrial fibrillation (HCC) Atrial fibrillation Presence of cardiac pacemaker Cardiac pacemaker in situ Sick sinus syndrome (HCC) Sinoatrial node dysfunction Complete atrioventricular block (HCC) Atrioventricular block, complete documented in this encounter Care Teams Residential Sales Relationship Specialty Start Date End Date Niranjan Mccarty MD [address] [place] [address] PCP - General Adolescent Medicine 10/15/23 documented as of this encounter
--- OUTSIDE RECORDS SUMMARY | 2025-08-30 10:57 | XMS_ITS | Encounter Summary ---
Author Organization [employer] ([place], [place], [place], [place]) Address [address] [place] [address] Care Team Providers Care Conference Director Name Role Phone Niranjan Mccarty MD Primary Care Provider [phone] Encounter Details Date Type Department Care Team (Late st Contact Info) Description 10/12/2019 Transcribed Document [facility] Cardiology [address] [place] [address] Constantine Galvan MD [address] [place] [address] [address] [place] [address] Social History Tobacco Use Types Packs/Day Years [...] Normal study. 2. Ejection fraction is 60%. /[id number] MD POLINA Carvalho/AQ / POLINA / SIMAL /[id number] documented in this encounter Plan of Treatment Upcoming Encounters Date Type Department Care Team (Late st Contact Info) Description 10/31/2025 11:15 AM EST Office Visit [facility] Electrophysiology [address] [place] [address] Adrienne Dunn MD [address] [place] [address] [address] [place] [address] documented as of this encounter Visit Diagnoses Not on filedocumented in this encounter Care Teams Conference Director Relationship Specialty Start Date End Date Niranjan Mccarty MD [address] [place] [address] PCP - General Adolescent Medicine 10/15/23 documented as of this encounter
--- OUTSIDE RECORDS SUMMARY | 2025-08-30 10:57 | XMS_ITS | Encounter Summary ---
Author Organization [employer] ([place], [place], [place], [place]) Address [address] [place] [address] Care Team Providers Care Overhead Crane Truck Loader Name Role Phone Niranjan Mccarty MD Primary Care Provider [phone] Encounter Details Date Type Department Care Team (Late st Contact Info) Description 10/12/2019 Transcribed Document [facility] Family Medicine [facility] [place] [address] ProviderAkash MD [address] [place] [phone] Social History Tobacco Use Types Packs/Day Years Used Date Smoking Tobacco: Never Assessed Comments Unknown Sex and Gender Information Value Date Recorded Sex Assigned at Not on file Legal Sex Female 1:32 PM CDT Gender Identity Not on file Sexual Orientation Not on file documented as of this encounter Miscellaneous Notes * Cerner Conversion Note - Akash Vega MD - 10/12/2019 6:20 PM AUTO BODY TECHNICIAN Nursing Discharge Summary Entered On: 10/12/2019 18:22 [...] - 10/12/2019 18:20 EST Electronically signed by Cecy, [facility] Conversion Security Orderly Cerner at 03/07/2023 1:46 PM CDT documented in this encounter Plan of Treatment Upcoming Encounters Date Type Department Care Team (Late st Contact Info) Description 10/31/2025 11:15 AM EST Office Visit [facility] Electrophysiology [address] [place] [address] Adrienne Dunn MD [address] [place] [address] [address] [place] [phone] documented as of this encounter Visit Diagnoses Not on filedocumented in this encounter Care Teams Overhead Crane Truck Loader Relationship Specialty Start Date End Date Niranjan Mccarty MD [address] [place] [address] PCP - General Adolescent Medicine 10/15/23 documented as of this encounter
--- OUTSIDE RECORDS SUMMARY | 2025-08-30 10:57 | XMS_ITS | Encounter Summary ---
Author Organization [employer] ([place], [place], [place], [place]) Address [address] [place] [address] Care Team Providers Care Supervisor Cured Meats Name Role Phone Niranjan Mccarty MD Primary Care Provider [phone] Encounter Details Date Type Department Care Team (Late st Contact Info) Description 10/09/2019 Transcribed Document [facility] [place] Family Medicine [facility] [place] [address] ProviderAkash MD [address] [place] [address] Social History Tobacco Use Types Packs/Day Years Used Date Smoking Tobacco: Never Assessed Comments Unknown Sex and Gender Information Value Date Recorded Sex Assigned at Not on file Legal Sex Female 1:32 PM CDT Gender Identity Not on file Sexual Orientation Not on file documented as of this encounter Miscellaneous Notes * Cerner Conversion Note - kAash Vega MD - 10/09/2019 9:22 PM BRICK STACKER Patient: TRAN PEGUERO Age: 83 Years Sex: Female : 1935 Chief Complaint Chest pain Primary Care Provider NIRANJAN MORRIS MD-[facility] History of Present Illness Patient is [...] significant chest pain. Patient requested transfer to [facility] to be evaluated by her lead producer here. Review of Systems Pertinent positives and [...] Office Visit [facility] Electrophysiology [address] [place] [address] Adrienne Dunn MD 1401 [facility] [address] [place], [place] [phone] documented as of this encounter Visit Diagnoses Not on filedocumented in this encounter Care Teams Supervisor Cured Meats Relationship Specialty Start Date End Date Niranjan Mccarty MD [address] [place] [address] PCP - General Adolescent Medicine 10/15/23 documented as of this encounter
--- OUTSIDE RECORDS SUMMARY | 2025-08-30 10:57 | XMS_ITS | Encounter Summary ---
Author Organization [employer] ([place], [place], [place], [place]) Address [address] [place] [address] Care Team Providers Care Mechanic Marine Engine Name Role Phone Niranjan Mccarty MD Primary Care Provider [phone] Encounter Details Date Type Department Care Team (Late st Contact Info) Description 10/12/2019 Transcribed Document [facility] Cardiology [address] [place] [address] [place] [address] [place] [address] [address] [place] [phone] Social History Tobacco Use Types Packs/Day Years [...] 1935 Associated Diagnoses: None Author: ADI DRIVER, CHANGE ATTENDANT-INT Basic Information PCP: NIRANJAN MORRIS MD Cath Lab Radiological Technologist: Cole SAMUEL Subjective NAD. No complaints of [...] Normal strength, No deformity. Integumentary: Warm, Dry, [place], Intact, No rash. Neurologic: Alert, Oriented, No [...] Description 10/31/2025 11:15 AM EST Office Visit [facility] Electrophysiology [address] [place] [address] Adrienne Dunn MD [address] [place] [address] [address] [place] [phone] documented as of this encounter Visit Diagnoses Not on filedocumented in this encounter Care Teams Mechanic Marine Engine Relationship Specialty Start Date End Date Niranjan Mccarty MD [address] [place] [address] PCP - General Adolescent Medicine 10/15/23 documented as of this encounter
--- OUTSIDE RECORDS SUMMARY | 2025-08-30 10:57 | XMS_ITS | Encounter Summary ---
Author Organization [employer] ([place], [place], [place], [place]) Address [address] [place] [address] Care Team Providers Care Radial Drill Operator For Plastic Name Role Phone Niranjan Mccarty MD Primary Care Provider [phone] Encounter Details Date Type Department Care Team (Late st Contact Info) Description 10/09/2019 Transcribed Document [facility] Family Medicine [facility] [place] [address] ProviderAkash MD [address] [place] [address] Social History Tobacco Use Types [...] - Akash ProviderMD - 10/09/2019 8:24 PM DAT INSTRUCTOR Admission History, Adult Entered On: 10/09/2019 21:47 [...] megha Legal Guardian : No Support Person/Patient Flat Drier : Yes Support Person/Pt Rep Name : daughter- sherley MEKA MANSFIELD, PAPITO - 10/09/2019 21:40 EST Maya Garcia RN - 10/12/2019 10:14 EST Support Person/Pt Rep Contact Information : gordon [phone] [address] Family/Rep/Phys Notified of Admit : No Emergency Contact #1 : Sandee Emergency Contact #1 Emergency Contact #1 Relationship : daughter Emergency Contact #2 : Dana Emergency Contact #2 Emergency Contact #2 Relationship : sister in law Information Obtained From : Patient Primary Language : Nigerian Preferred Communication Mode : Verbal Communication Barrier [...] Scale Risk Level : 25-45 Medium Risk Monona Fall Interventions : Adequate lighting, Assistive devices [...] (Last Updated: 12/08/2014 08:21:45 EST by JOSE TYOSN RN) Alcohol Use History No. Use in [...] Source : Stated Height Entry Format : Mayes Height, Feet : 5 ft(Converted to: 152 cm, 60 Inch) Height, Inches : 5 Inch(Converted to: 0 ft 5 Inch, 12.70 cm) Clinical Height : 165.1 cm Weight Source : Bed scale Weight Entry Format : Mayes Clinical Dosing Weight : 65.51 kg Weight, Pounds : 144 lb Weight, Ounces : 2 oz Body Surface Area (BSA) : 1.72 m2 Body Mass Index : 24 kg/m2 [place] Body Weight : 57 kg MEKA MANSFIELD [...] MEKA MANSFIELD RN - 10/09/2019 21:40 EST [place] Suicide Severity Rating Scale (C-SSRS) CSSRS Past [...] 10/09/2019 21:40 EST Electronically signed by Cecy [facility] Conversion Crime Lab Technician Cerner at 03/07/2023 1:48 PM CDT documented in this encounter Plan of Treatment Upcoming Encounters Date Type Department Care Team (Late st Contact Info) Description 10/31/2025 11:15 AM EST Office Visit [facility] Electrophysiology [address] [place] [address] [place] [address] [place] [address] [address] [place] [address] documented as of this encounter Visit Diagnoses Not on filedocumented in this encounter Care Teams Radial Drill Operator For Plastic Relationship Specialty Start Date End Date Niranjan Mccarty MD [address] [place] [address] PCP - General Adolescent Medicine 10/15/23 documented as of this encounter
--- OUTSIDE RECORDS SUMMARY | 2025-08-30 10:57 | XMS_ITS | Encounter Summary ---
Author Organization [employer] ([place], [place], [place], [place]) Address [address] [place] [address] Care Team Providers Care Senior Mobile Web Developer Name Role Phone Niranjan Mccarty MD Primary Care Provider [phone] Encounter Details Date Type Department Care Team (Late st Contact Info) Description 10/09/2019 Transcribed Document [facility] [place] Family Medicine [facility] [place] [address] ProviderAkash MD [address] [place] [phone] Social History Tobacco Use Types Packs/Day Years Used Date Smoking Tobacco: Never Assessed Comments Unknown Sex and Gender Information Value Date Recorded Sex Assigned at Not on file Legal Sex Female 1:32 PM CDT Gender Identity Not on file Sexual Orientation Not on file documented as of this encounter Miscellaneous Notes * Cerner Conversion Note - Akash Vega MD - 10/09/2019 9:20 PM MMD UNIT TEACHER Consult Phone Call Documentation Entered On: 10/10/2019 10:25 EST Performed On: 10/09/2019 21:20 EST by Delma Cox, [facility] Coord Phone Call for Consults Consult Phone Call/Page Attempt : First call Consult Reason : chest pain, AFIB Physician Requesting Consult : CINTHIA ENNIS MD Physician Requested for Consult : VIRY ESTRADA MD-CAR Provider Service Notified Name : Cardiology Physician Covering for Consult : zafar Date and Time Call Returned : 10/10/2019 10:25 EST Consult, Additional Information : spoke to [facility] Delma Cox, [facility] Coord - 10/10/2019 10:13 EST Electronically signed by Cecy, [facility] Conversion Rn Surgery Icu Cerner at 03/07/2023 1:41 PM CDT documented in this encounter Plan of Treatment Upcoming Encounters Date Type Department Care Team (Late st Contact Info) Description 10/31/2025 11:15 AM EST Office Visit [facility] Electrophysiology [address] [place] [address] [place] [address] [place] [address] [address] [place] [phone] documented as of this encounter Visit Diagnoses Not on filedocumented in this encounter Care Teams Senior Mobile Web Developer Relationship Specialty Start Date End Date Niranjan Mccarty MD [address] [place] [address] PCP - General Adolescent Medicine 10/15/23 documented as of this encounter
--- OUTSIDE RECORDS SUMMARY | 2025-08-30 10:57 | XMS_ITS | Encounter Summary ---
Author Organization [employer] ([place], [place], [place], [place]) Address [address] [place] [address] Care Team Providers Care Production Stage Manager Name Role Phone Niranjan Mccarty MD Primary Care Provider [phone] Encounter Details Date Type Department Care Team (Late st Contact Info) Description 10/12/2019 Transcribed Document [facility] Family Medicine [facility] [place] [address] ProviderAkash MD [address] [place] [id number] Social History Tobacco Use Types Packs/Day Years Used Date Smoking Tobacco: Never Assessed Comments Unknown Sex and Gender Information Value Date Recorded Sex Assigned at Not on file Legal Sex Female 1:32 PM CDT Gender Identity Not on file Sexual Orientation Not on file documented as of this encounter Miscellaneous Notes * Cerner Conversion Note - Akash Vega MD - 10/12/2019 8:49 AM LAMP SHADE JOINER Patient: TRAN PEGUERO Age: 83 years Sex: [...] [facility] Elect[facility]iology [address] [place] [address] Adrienne Dunn MD [employer] [address] [place] [address] documented as of this encounter Visit Diagnoses Not on filedocumented in this encounter Care Teams Production Stage Manager Relationship Specialty Start Date End Date Niranjan Mccarty MD [address] [place] [address] PCP - General Adolescent Medicine 10/15/23 documented as of this encounter
--- OUTSIDE RECORDS SUMMARY | 2025-08-30 10:57 | XMS_ITS | Encounter Summary ---
Author Organization [employer] ([place], [place], [place], [place]) Address [address] [place] [address] Care Team Providers Care Business Analysis Specialist Name Role Phone Niranjan Mccarty MD Primary Care Provider [phone] Encounter Details Date Type Department Care Team (Late st Contact Info) Description 10/09/2019 Transcribed Document [facility] [place] [facility] [place] [place] [address] ProviderAkash MD [address] [place] [address] Social History Tobacco Use Types Packs/Day [...] Akash Vega MD - 10/09/2019 9:37 PM ELECTRIC CRANE OPERATOR Pain Assessment Entered On: 10/09/2019 23:44 EST Performed On: 10/09/2019 23:54 EST by MEKA MANSFIELD RN Intervention Information: traMADol Performed by MEKA MANSFIELD RN on 10/09/2019 22:54:00 EST traMADol,50mg Oral Pain Assessment Pain Assessment : Follow-up assessment Pain Improved by Intervention : Yes MEKA MANSFIELD RN - 10/09/2019 23:43 EST Electronically signed by Cecy [facility] Conversion Food Service Steward Cerner at 03/07/2023 1:55 PM CDT documented in this encounter Plan of Treatment Upcoming Encounters Date Type Department Care Team (Late st Contact Info) Description 10/31/2025 11:15 AM EST Office Visit [facility] Electrophysiology [address] [place] [address] Adrienne Dunn MD [address] [facility] [address] [place] [address] documented as of this encounter Visit Diagnoses Not on filedocumented in this encounter Care Teams Business Analysis Specialist Relationship Specialty Start Date End Date Niranjan Mccarty MD [address] [place] [address] PCP - General Adolescent Medicine 10/15/23 documented as of this encounter
--- OUTSIDE RECORDS SUMMARY | 2025-08-30 10:57 | XMS_ITS | Encounter Summary ---
Author Organization [employer] ([place], [place], [place], [place]) Address [address] [place] [address] Care Team Providers Care Import/Export Agent Name Role Phone Niranjan Mccarty MD Primary Care Provider [phone] Encounter Details Date Type Department Care Team (Late st Contact Info) Description 10/12/2019 Transcribed Document [facility] Family Medicine [facility] [place] [address] ProviderAkash MD [address] [place] [address] Social History Tobacco Use Types Packs/Day [...] Akash Vega MD - 10/12/2019 5:15 PM CALL CENTER ASSOCIATE [facility] [place], [place] [id number] TRAN PEGUERO KELLY :1935 Visit Time:10/09/2019 Your [...] Call for follow up appointment Where: [address] [facility] [address] [place] [address]- Follow Up with VIRY ESTRADA MD-CAR When Within 1 to 2 weeks Comments Call for follow up appointment Where: [address] [facility] [address] [place] [address]- Follow Up with NIRANJAN MORRIS MD-[facility] When Within 2 to 4 weeks Where: [address] Warfarin Instructions Indication for Warfarin Anticoagulation: [...] you start to feel better. ??? Take mcre-onf-peeatwz and prescription medicines only as told by [...] 04/21/2009 Document Revised: 07/28/2017 Document Reviewed: 07/28/2017 [employer] Interactive Patient Education ?? 2019 [employer]. Emergency Awareness and Preventative Care STROKE is [...] Assistance with quitting is available by contacting 3-400-AHHG-NOW. This is a free resource providing counseling, [...] range between ( 0.0 and 7.0 ) Jackson #: 0.75 K/uL -- Normal range between ( 0.16 and 1.00 ) Eos #: 0.20 x10(3)/uL -- Normal range between ( 0.00 and 0.80 ) Jackson %: 10.3 % -- Normal range between [...] was given the opportunity to ask questions. Patient/Keyboard Action Assembler Name: Patient/Keyboard Action Assembler Signature: Relationship to Patient: Clinician/Hospital Keyboard Action Assembler Signature: Date: documented in this encounter Plan of Treatment Upcoming Encounters Date Type Department Care Team (Late st Contact Info) Description 10/31/2025 11:15 AM EST Office Visit [facility] Electrophysiology [address] [place] [address] [place] [address] [place] [address] [address] [place] [phone] documented as of this encounter Visit Diagnoses Not on filedocumented in this encounter Care Teams Import/Export Agent Relationship Specialty Start Date End Date Niranjan Mccarty MD [address] [place] [address] PCP - General Adolescent Medicine 10/15/23 documented as of this encounter
--- OUTSIDE RECORDS SUMMARY | 2025-08-30 10:57 | XMS_ITS | Encounter Summary ---
Author Organization [employer] ([place], [place], [place], [place]) Address [address] [place] [address] Care Team Providers Care Cigar Wrapper Tender Automatic Name Role Phone Niranjan Mccarty MD Primary Care Provider [phone] Encounter Details Date Type Department Care Team (Late st Contact Info) Description 10/12/2019 Transcribed Document [facility] [place] [address] [place] [address] ProviderAkash MD [address] [place], [place] [phone] Social History Tobacco Use Types Packs/Day Years Used Date Smoking Tobacco: Never Assessed Comments Unknown Sex and Gender Information Value Date Recorded Sex Assigned at Not on file Legal Sex Female 1:32 PM CDT Gender Identity Not on file Sexual Orientation Not on file documented as of this encounter Miscellaneous Notes * Cerner Conversion Note - Akash Vega MD - 10/12/2019 9:39 AM RFID STRATEGIST Stroke/Warfarin Instructions Entered On: 10/12/2019 9:39 EST Performed On: 10/12/2019 9:39 EST by Herberth Guevara RN Stroke/Warfarin Instructions Stroke/TIA Discharge Ins : N/A Warfarin Discharge Ins : Open Herberth Guveara RN - 10/12/2019 9:39 EST Warfarin Discharge [...] - 10/12/2019 9:39 EST Electronically signed by [facility] Conversion Spindraw Operator Cerner at 03/07/2023 1:37 PM CDT documented in this encounter Plan of Treatment Upcoming Encounters Date Type Department Care Team (Late st Contact Info) Description 10/31/2025 11:15 AM EST Office Visit [facility] Electrophysiology [address] [place], [place] [phone] Adrienne Dunn MD [address] [place] [address] [address] [place] [phone] documented as of this encounter Visit Diagnoses Not on filedocumented in this encounter Care Teams Cigar Wrapper Tender Automatic Relationship Specialty Start Date End Date Niranjan Mccarty MD [address] [place] [address] PCP - General Adolescent Medicine 10/15/23 documented as of this encounter
--- OUTSIDE RECORDS SUMMARY | 2025-08-30 10:57 | XMS_ITS | Encounter Summary ---
Author Organization [employer] ([place], [place], [place], [place]) Address [address] [place] [address] Care Team Providers Care Recreational Vehicle Resort Manager Name Role Phone Niranjan Mccarty MD Primary Care Provider [phone] Encounter Details Date Type Department Care Team (Late st Contact Info) Description 10/13/2019 Transcribed Document [facility] Family Medicine [facility] [address] ProviderAkash MD [address] [place] [phone] Social History Tobacco Use Types Packs/Day Years Used Date Smoking Tobacco: Never Assessed Comments Unknown Sex and Gender Information Value Date Recorded Sex Assigned at Not on file Legal Sex Female 1:32 PM CDT Gender Identity Not on file Sexual Orientation Not on file documented as of this encounter Miscellaneous Notes * Cerner Conversion Note - Historical ProviderMD - 10/13/2019 8:26 AM RECONDITIONER Discharge Summary, PT Entered On: 10/13/2019 8:27 [...] WILLIE GOLDEN, PT - 10/13/2019 8:26 EST Clay Digger Goals Mobility/Bed Mobility LTG PT Grid Goal [...] - 10/13/2019 8:26 EST Electronically signed by [facility] Conversion Job Press Feeder Cerner at 03/07/2023 1:24 PM CDT documented in this encounter Plan of Treatment Upcoming Encounters Date Type Department Care Team (Late st Contact Info) Description 10/31/2025 11:15 AM EST Office Visit [facility] Electrophysiology [address] [place], [place] [address] Adrienne Dunn MD [address] [place] [address] [address] [place] [address] documented as of this encounter Visit Diagnoses Not on filedocumented in this encounter Care Teams Recreational Vehicle Resort Manager Relationship Specialty Start Date End Date Niranjan Mccarty MD [address] [place] [address] PCP - General Adolescent Medicine 10/15/23 documented as of this encounter
--- OUTSIDE RECORDS SUMMARY | 2025-08-30 10:57 | XMS_ITS | Encounter Summary ---
Author Organization [employer] ([place], [place], [place], [place]) Address [address] [place] [address] Care Team Providers Care Spring Tester Name Role Phone Niranjan Mccarty MD Primary Care Provider [phone] Encounter Details Date Type Department Care Team (Late st Contact Info) Description 10/12/2019 Transcribed Document [facility] [place] [facility] [place] [address] ProviderAkash MD [address] [place], [place] [phone] Social History Tobacco Use Types Packs/Day Years Used Date Smoking Tobacco: Never Assessed Comments Unknown Sex and Gender Information Value Date Recorded Sex Assigned at Not on file Legal Sex Female 1:32 PM CDT Gender Identity Not on file Sexual Orientation Not on file documented as of this encounter Miscellaneous Notes * Cerner Conversion Note - Akash Vega MD - 10/12/2019 9:40 AM FILLER BLOCK INSERTER REMOVER Patient Education Materials Follows: Nonspecific Chest Pain [...] you start to feel better. ??? Take dtfj-clh-ivaivyw and prescription medicines only as told by [...] 04/21/2009 Document Revised: 07/28/2017 Document Reviewed: 07/28/2017 [employer] Interactive Patient Education ? 2019 [employer]. documented in this encounter Plan of Treatment Upcoming Encounters Date Type Department Care Team (Late st Contact Info) Description 10/31/2025 11:15 AM EST Office Visit [facility] Electrophysiology [address] [place] [phone] Adrienne Dunn MD [address] [place] [address] [address] [place] [phone] documented as of this encounter Visit Diagnoses Not on filedocumented in this encounter Care Teams Spring Tester Relationship Specialty Start Date End Date Niranjan Mccarty MD [address] [place] [address] PCP - General Adolescent Medicine 10/15/23 documented as of this encounter
--- OUTSIDE RECORDS SUMMARY | 2025-08-30 10:57 | XMS_ITS | Encounter Summary ---
Author Organization [employer] ([place], [place], [place], [place]) Address [address] [place] [address] Care Team Providers Care Surgical Coder Name Role Phone Niranjan Mccarty MD Primary Care Provider [phone] Encounter Details Date Type Department Care Team (Late st Contact Info) Description 10/12/2019 Transcribed Document [facility] Family [place] [address] ProviderAkash MD [address] [place] [address] Social History Tobacco Use Types Packs/Day Years Used Date Smoking Tobacco: Never Assessed Comments Unknown Sex and Gender Information Value Date Recorded Sex Assigned at Not on file Legal Sex Female 1:32 PM CDT Gender Identity Not on file Sexual Orientation Not on file documented as of this encounter Miscellaneous Notes * Cerner Conversion Note - Akash Vega MD - 10/12/2019 3:47 PM VISUAL DISPLAY MANAGER Final Discharge Planning Entered On: 10/12/2019 [...] : Yes Discharge To Care Management : Home/Residential/Fpc or Self Care -01 CATHERINE LOZANO RN-Care Management - 10/12/2019 15:47 EST Final Narrative Note Final Narrative Note : Pt to be discharged today w/o needs for CM to address, and family transporting CATHERINE LOZANO RN-Care Management - 10/12/2019 15:47 EST Electronically signed by [facility] Conversion Carpenter Cerner at 03/07/2023 1:55 PM CDT documented in this encounter Plan of Treatment Upcoming Encounters Date Type Department Care Team (Late st Contact Info) Description 10/31/2025 11:15 AM EST Office Visit [facility] Electrophysiology [address] [place] [address] Adrienne Dunn MD [address] [place] [address] [address] [place] [phone] documented as of this encounter Visit Diagnoses Not on filedocumented in this encounter Care Teams Surgical Coder Relationship Specialty Start Date End Date Niranjan Mccarty MD [address] [place] [address] PCP - General Adolescent Medicine 10/15/23 documented as of this encounter
--- OUTSIDE RECORDS SUMMARY | 2025-08-30 10:58 | XMS_ITS | Encounter Summary ---
Author Organization [employer] ([place], [place], [place], [place]) Address [address] [place] [address] Care Team Providers Care Hvac Design Mechanical Engineer Name Role Phone Niranjan Mccarty MD Primary Care Provider [phone] Encounter Details Date Type Department Care Team (Late st Contact Info) Description 10/11/2019 Transcribed Document [facility] [place] Medicine [facility] [place] [address] ProviderAkash MD [address] [place], [place] [address] Social History Tobacco Use Types Packs/Day Years Used Date Smoking Tobacco: Never Assessed Comments Unknown Sex and Gender Information Value Date Recorded Sex Assigned at Not on file Legal Sex Female 1:32 PM CDT Gender Identity Not on file Sexual Orientation Not on file documented as of this encounter Miscellaneous Notes * Cerner Conversion Note - Akash Vega MD - 10/11/2019 3:28 PM BACKFILLER Initial Discharge Planning Entered On: 10/11/2019 15:33 EST Performed On: 10/11/2019 15:28 EST by MEAGHAN DIXON Rn-Primary School Teacher Initial Assessment I Previously Documented Living Environment : No qualifying data available. Living Situation : Home Patient Lives With : Spouse Emergency Contact #1 : Sandee Emergency Contact #1 Emergency Contact #1 Relationship : daughter Emergency Contact #2 : Dana Emergency Contact #2 Emergency Contact #2 Relationship : sister in law Medical Durable Power of Oceanographer Physical Name : Yes Legal Guardian : No MEAGHAN DIXON Rn-Primary School Teacher - 10/11/2019 15:28 EST Initial Assessment II Sensory and Motor Deficits : None Deficit Description : however, says she has a transport chair. MEAGHAN DIXON Rn-Primary School Teacher - 10/11/2019 15:28 EST Discharge Needs I Anticipated Discharge Date : 10/14/2019 EST Current Home Treatment/Equipment : Current Home Treatment/Equipment No qualifying data available. Post Acute/Home Treatments : None Documentation Status Complete : Yes MEAGHAN DIXON Rn-Primary School Teacher - 10/11/2019 15:28 EST Discharge Needs II Professional Skilled Services : Professional Skilled Services No qualifying data available. Needs Assistance with Transportation : Maybe Discharge Options Discussed with Patient : Home Health, Outpatient services MEAGHAN DIXON Rn-Primary School Teacher - 10/11/2019 15:28 EST Narrative Note Narrative Note : RRS: Low 34 RN casde manager financial systems met with pt at the bedside. Reed [...] portable oxygen tank at dc. MEAGHAN DIXON Rn-Primary School Teacher - 10/11/2019 15:28 EST Electronically signed by Sherri Sam Conversion Fire Apparatus Sprinkler Inspector Cerner at 03/07/2023 1:49 PM CDT documented in this encounter Plan of Treatment Upcoming Encounters Date Type Department Care Team (Late st Contact Info) Description 10/31/2025 11:15 AM EST Office Visit [facility] Electrophysiology [address] [place] [address] Adrienne Dunn MD [address] [facility] [address] [place] [address] documented as of this encounter Visit Diagnoses Not on filedocumented in this encounter Care Teams Hvac Design Mechanical Engineer Relationship Specialty Start Date End Date Niranjan Mccarty MD [address] [place] [address] PCP - General Adolescent Medicine 10/15/23 documented as of this encounter
--- OUTSIDE RECORDS SUMMARY | 2025-08-30 10:58 | XMS_ITS | Encounter Summary ---
Author Organization [employer] ([place], [place], [place], [place]) Address [address] [place] [address] Care Team Providers Care Accounting Professional Name Role Phone Niranjan Mccarty MD Primary Care Provider [phone] Encounter Details Date Type Department Care Team (Late st Contact Info) Description 10/10/2019 Transcribed Document [facility] [place] Family Medicine [address] [place] [address] ProviderAkash MD [address] [place], [place] [address] Social History Tobacco Use Types Packs/Day Years Used Date Smoking Tobacco: Never Assessed Comments Unknown Sex and Gender Information Value Date Recorded Sex Assigned at Not on file Legal Sex Female 1:32 PM CDT Gender Identity Not on file Sexual Orientation Not on file documented as of this encounter Miscellaneous Notes * Cerner Conversion Note - Akash Vega MD - 10/10/2019 9:00 AM EXAM PROCTOR Pain Assessment Entered On: 10/10/2019 12:45 EST [...] Description 10/31/2025 11:15 AM EST Office Visit [facility] Electrophysiology [address] [place] [phone] Adrienne Dunn MD [address] [place] [address] [address] [place] [phone] documented as of this encounter Visit Diagnoses Not on filedocumented in this encounter Care Teams Accounting Professional Relationship Specialty Start Date End Date Niranjan Mccarty MD [address] [place] [address] PCP - General Adolescent Medicine 10/15/23 documented as of this encounter
--- OUTSIDE RECORDS SUMMARY | 2025-08-30 10:58 | XMS_ITS | Encounter Summary ---
Author Organization [employer] ([place], [place], [place], [place]) Address [address] [place] [address] Care Team Providers Care Cable Ferryboat Operator Name Role Phone Niranjan Mccarty MD Primary Care Provider [phone] Encounter Details Date Type Department Care Team (Late st Contact Info) Description 10/09/2019 Transcribed Document [facility] Family Medicine [facility] [place] [address] ProviderAkash MD [address] [place] [address] Social History Tobacco Use Types Packs/Day Years Used Date Smoking Tobacco: Never Assessed Comments Unknown Sex and Gender Information Value Date Recorded Sex Assigned at Not on file Legal Sex Female 1:32 PM CDT Gender Identity Not on file Sexual Orientation Not on file documented as of this encounter Miscellaneous Notes * Cerner Conversion Note - Akash Vega MD - 10/09/2019 9:18 PM SHIPWRIGHT HELPER Evaluation, Physical Therapy Entered On: 10/10/2019 10:57 [...] VAN MCKEON PT - 10/10/2019 10:39 EST [facility] Topics Physical Therapy Education Grid Role of Physical Therapy : Verbalizes understanding AVN MCKEON PT - 10/10/2019 10:39 EST Indication [...] VAN MCKEON, PT - 10/10/2019 10:39 EST Wire Welder Goals Mobility/Bed Mobility LTG PT Grid Goal [...] Patient also transfered to [facility] with supervision and required extended time. Patient [...] VAN MCKEON, PT - 10/10/2019 10:39 EST [facility] PT Charges PT Therap. Exercise 15 min : 1 PT Ther Activities Ea 15 Min : 1 PT Eval Moderate Complexity : 1 VAN MCKEON, PT - 10/10/2019 10:39 EST Electronically signed by [facility] Conversion Division Supervisor Cerner at 03/07/2023 1:23 PM CDT documented in this encounter Plan of Treatment Upcoming Encounters Date Type Department Care Team (Late st Contact Info) Description 10/31/2025 11:15 AM EST Office Visit [facility] Electrophysiology [address] [place] [address] [place] [address] [place] [address] [address] [place] [address] documented as of this encounter Visit Diagnoses Not on filedocumented in this encounter Care Teams Cable Ferryboat Operator Relationship Specialty Start Date End Date Niranjan Mccarty MD [address] [place] [address] PCP - General Adolescent Medicine 10/15/23 documented as of this encounter
--- OUTSIDE RECORDS SUMMARY | 2025-08-30 10:58 | XMS_ITS | Encounter Summary ---
Author Organization [employer] ([place], [place], [place], [place]) Address [address] [place] [address] Care Team Providers Care Parts Clerk Name Role Phone Niranjan Mccarty MD Primary Care Provider [phone] Encounter Details Date Type Department Care Team (Late st Contact Info) Description 10/12/2019 Transcribed Document [facility] Family Medicine [facility] [place] [address] ProviderAkash MD [address] [place], [place] [phone] Social History Tobacco Use Types Packs/Day Years Used Date Smoking Tobacco: Never Assessed Comments Unknown Sex and Gender Information Value Date Recorded Sex Assigned at Not on file Legal Sex Female 1:32 PM CDT Gender Identity Not on file Sexual Orientation Not on file documented as of this encounter Miscellaneous Notes * Cerner Conversion Note - Akash Vega MD - 10/12/2019 9:00 AM CUT LACE MACHINE OPERATOR Pain Assessment Entered On: 10/12/2019 11:21 [...] Description 10/31/2025 11:15 AM EST Office Visit [address] [address] Adrienne Dunn MD [address] [place] [address] [address] [place] [phone] documented as of this encounter Visit Diagnoses Not on filedocumented in this encounter Care Teams Parts Clerk Relationship Specialty Start Date End Date Niranjan Mccarty MD [address] [place] [address] PCP - General Adolescent Medicine 10/15/23 documented as of this encounter
--- OUTSIDE RECORDS SUMMARY | 2025-08-30 10:58 | XMS_ITS | Encounter Summary ---
Author Organization [employer] ([place], [place], [place], [place]) Address [address] [place] [address] Care Team Providers Care Certified Alcohol Counselor Name Role Phone Niranjan Mccarty MD Primary Care Provider [phone] Encounter Details Date Type Department Care Team (Late st Contact Info) Description 10/09/2019 Transcribed Document [facility] [place] [facility] [place] [address] ProviderAkash MD [address] [place] [address] Social History Tobacco Use Types Packs/Day [...] Akash Vega MD - 10/09/2019 9:38 PM UNIT NURSE Education-Wound Care Entered On: 10/09/2019 23:43 EST Performed On: 10/09/2019 21:38 EST by MEKA MANSFIELD RN Teaching/Learning Assessment Barriers To Learning : None evident Individuals Taught : Patient Readiness to Learn : Cooperative Learning Style Preferences Patient : Verbal explanation Learning Style Preferences Family : Verbal explanation MEKA MANSFIELD RN - 10/09/2019 23:43 EST Electronically signed by Cecy [facility] Conversion Senior Payroll Administrator Cerner at 03/07/2023 1:41 PM CDT documented in this encounter Plan of Treatment Upcoming Encounters Date Type Department Care Team (Late st Contact Info) Description 10/31/2025 11:15 AM EST Office Visit [facility] Electrophysiology [address] [place] [phone] Adrienne Dunn MD [address] [facility] [address] [place], [place] [phone] documented as of this encounter Visit Diagnoses Not on filedocumented in this encounter Care Teams Certified Alcohol Counselor Relationship Specialty Start Date End Date Niranjan Mccarty MD [address] [place] [address] PCP - General Adolescent Medicine 10/15/23 documented as of this encounter
--- OUTSIDE RECORDS SUMMARY | 2025-08-30 10:58 | XMS_ITS | Encounter Summary ---
Author Organization [employer] ([place], [place], [place], [place]) Address [address] [place] [address] Care Team Providers Care Energy Scheduler Name Role Phone Niranjan Mccarty MD Primary Care Provider [phone] Encounter Details Date Type Department Care Team (Late st Contact Info) Description 10/11/2019 Transcribed Document [facility] [place] Family Medicine Formerly [facility] [place] [address] ProviderAkash MD [address] [place] [phone] Social History Tobacco Use Types Packs/Day Years Used Date Smoking Tobacco: Never Assessed Comments Unknown Sex and Gender Information Value Date Recorded Sex Assigned at Not on file Legal Sex Female 1:32 PM CDT Gender Identity Not on file Sexual Orientation Not on file documented as of this encounter Miscellaneous Notes * Cerner Conversion Note - Akash Vega MD - 10/11/2019 9:21 AM KEY BED INSTALLER Patient: TRAN PEGUERO Age: 83 years Sex: [...] Description 10/31/2025 11:15 AM EST [facility]iology [facility] [place] [address] Adrienne Dunn MD [address] [place] [address] [address] [place] [address] documented as of this encounter Visit Diagnoses Not on filedocumented in this encounter Care Teams Energy Scheduler Relationship Specialty Start Date End Date Niranjan Mccarty MD [address] [place] [address] PCP - General Adolescent Medicine 10/15/23 documented as of this encounter
--- OUTSIDE RECORDS SUMMARY | 2025-08-30 10:58 | XMS_ITS | Encounter Summary ---
Author Organization [employer] ([place], [place], [place], [place]) Address [address] [place] [address] Care Team Providers Care Special Officer Name Role Phone Niranjan Mccarty MD Primary Care Provider [phone] Encounter Details Date Type Department Care Team (Late st Contact Info) Description 10/11/2019 Transcribed Document [facility] [place] Family Medicine [facility] [place] [address] ProviderAkash MD [address] [place] [address] Social History Tobacco Use Types Packs/Day Years Used Date Smoking Tobacco: Never Assessed Comments Unknown Sex and Gender Information Value Date Recorded Sex Assigned at Not on file Legal Sex Female 1:32 PM CDT Gender Identity Not on file Sexual Orientation Not on file documented as of this encounter Miscellaneous Notes * Cerner Conversion Note - Akash ProviderMD - 10/11/2019 2:00 AM JEWELRY CONSULTANT Service Order Taker Details Entered On: 10/11/2019 2:03 EST Performed [...] 10/11/2019 2:02 EST Electronically signed by Cecy [facility] Conversion Electrical Control Assembler Cerner at 03/07/2023 1:39 PM CDT documented in this encounter Plan of Treatment Upcoming Encounters Date Type Department Care Team (Late st Contact Info) Description 10/31/2025 11:15 AM EST Office Visit [facility] Electrophysiology [address] [place] [address] Adrienne Dunn MD 1401 [facility] [address] [place], [place] [id number] documented as of this encounter Visit Diagnoses Not on filedocumented in this encounter Care Teams Special Officer Relationship Specialty Start Date End Date Niranjan Mccarty MD [address] [place] [address] PCP - General Adolescent Medicine 10/15/23 documented as of this encounter
--- OUTSIDE RECORDS SUMMARY | 2025-08-30 10:58 | XMS_ITS | Encounter Summary ---
Author Organization [employer] ([place], [place], [place], [place]) Address [address] [place] [address] Care Team Providers Care Character Actress Name Role Phone Niranjan Mccarty MD Primary Care Provider [phone] Encounter Details Date Type Department Care Team (Late st Contact Info) Description 10/11/2019 Transcribed Document [facility] Cardiology [address] [place] [address] [place] [address] [place] [address] [address] [place] [address] Social History Tobacco Use Types Packs/Day Years [...] MD-CAR Basic Information PCP: NIRANJAN MORRIS MD Icebox Worker: Cole SAMUEL Subjective no chest pain. Health [...] of motion, Normal strength. Integumentary: Warm, Dry, [place]. Neurologic: Alert, Oriented. Psychiatric: Cooperative, Appropriate mood [...] Description 10/31/2025 11:15 AM EST Office Visit [facility] Electrophysiology [address] [place] [address] Adrienne Dunn MD 1401 [facility] [address] [place] [address] documented as of this encounter Visit Diagnoses Not on filedocumented in this encounter Care Teams Character Actress Relationship Specialty Start Date End Date Niranjan Mccarty MD [address] [place] [address] PCP - General Adolescent Medicine 10/15/23 documented as of this encounter
--- OUTSIDE RECORDS SUMMARY | 2025-08-30 10:58 | XMS_ITS | Encounter Summary ---
Author Organization [employer] ([place], [place], [place], [place]) Address [address] [place] [address] Care Team Providers Care Scrap Piler Name Role Phone Niranjan Mccarty MD Primary Care Provider [phone] Encounter Details Date Type Department Care Team (Late st Contact Info) Description 10/11/2019 Transcribed Document [facility] [place] [address] [place] [address] ProviderAkash MD [address] [place], [place] [id number] Social History Tobacco Use Types Packs/Day Years Used Date Smoking Tobacco: Never Assessed Comments Unknown Sex and Gender Information Value Date Recorded Sex Assigned at Not on file Legal Sex Female 1:32 PM CDT Gender Identity Not on file Sexual Orientation Not on file documented as of this encounter Miscellaneous Notes * Cerner Conversion Note - Akash Vega MD - 10/11/2019 9:00 AM FURNACE CARETAKER Pain Assessment Entered On: 10/11/2019 16:45 EST [...] Description 10/31/2025 11:15 AM EST Office Visit [facility] Electrophysiology [address] [place] [address] Adrienne Dunn MD [address] [place] [address] [address] [place] [phone] documented as of this encounter Visit Diagnoses Not on filedocumented in this encounter Care Teams Scrap Piler Relationship Specialty Start Date End Date Niranjan Mccarty MD [address] [place] [address] PCP - General Adolescent Medicine 10/15/23 documented as of this encounter
--- OUTSIDE RECORDS SUMMARY | 2025-08-30 10:58 | XMS_ITS | Encounter Summary ---
Author Organization [employer] ([place], [place], [place], [place]) Address [address] [place] [address] Care Team Providers Care Churn Tender Name Role Phone Niranjan Mccarty MD Primary Care Provider [phone] Encounter Details Date Type Department Care Team (Late st Contact Info) Description 10/09/2019 Transcribed Document [facility] [place] [address] ProviderAkash MD [address] [place] [address] Social History Tobacco Use Types Packs/Day Years Used Date Smoking Tobacco: Never Assessed Comments Unknown Sex and Gender Information Value Date Recorded Sex Assigned at Not on file Legal Sex Female 1:32 PM CDT Gender Identity Not on file Sexual Orientation Not on file documented as of this encounter Miscellaneous Notes * Cerner Conversion Note - Historical ProviderMD - 10/09/2019 9:18 PM CONTROL VALVE TECHNICIAN Education-(VTE) / (DVT) Entered On: 10/09/2019 23:43 EST Performed On: 10/09/2019 21:18 EST by MEKA MANSFIELD RN Teaching/Learning Assessment Barriers To Learning : None evident Individuals Taught : Patient Readiness to Learn : Cooperative Learning Style Preferences Patient : Verbal explanation Learning Style Preferences Family : Verbal explanation MEKA MANSFIELD RN - 10/09/2019 23:43 EST Electronically signed by Cecy [facility] Conversion Reducing System Operator Cerner at 03/07/2023 1:26 PM CDT documented in this encounter Plan of Treatment Upcoming Encounters Date Type Department Care Team (Late st Contact Info) Description 10/31/2025 11:15 AM EST Office Visit [facility] Electrophysiology [address] [place] [phone] Adrienne Dunn MD 1401 [facility] [address] [place] [address] documented as of this encounter Visit Diagnoses Not on filedocumented in this encounter Care Teams Churn Tender Relationship Specialty Start Date End Date Niranjan Mccarty MD [address] [place] [address] PCP - General Adolescent Medicine 10/15/23 documented as of this encounter
--- OUTSIDE RECORDS SUMMARY | 2025-08-30 10:58 | XMS_ITS | Encounter Summary ---
Author Organization [email or web address] ([place], [place], [place], [place]) Address [address] [place] [address] Care Team Providers Care Metaphysics Teacher Name Role Phone Niranjan Mccarty MD Primary Care Provider [phone] Encounter Details Date Type Department Care Team (Late st Contact Info) Description 10/12/2019 Transcribed Document [facility] [place] Family Medicine [facility] [place] [address] ProviderAkash MD [address] [place], [place] [phone] Social History Tobacco Use Types Packs/Day Years Used Date Smoking Tobacco: Never Assessed Comments Unknown Sex and Gender Information Value Date Recorded Sex Assigned at Not on file Legal Sex Female 1:32 PM CDT Gender Identity Not on file Sexual Orientation Not on file documented as of this encounter Miscellaneous Notes * Cerner Conversion Note - Akash Vega MD - 10/12/2019 9:35 AM TIRE MANAGER Patient: TRAN PEGUERO Age: 83 years Sex: [...] home oxygen, gastric ulcer who presented to [facility] ER today with complaints of chest [...] any, fever or chills. Lab workup at [facility] showed WBC count 5.6, hemoglobin 11.7, [...] significant chest pain. Patient requested transfer to [facility] to be evaluated by her metal tank erector here. She was admitted to telemetry. Troponin [...] Description 10/31/2025 11:15 AM EST Office Visit [facility] Electrophysiology [address] [place] [phone] [place] [address] [place] [address] [address] [place] [address] documented as of this encounter Visit Diagnoses Not on filedocumented in this encounter Care Teams Metaphysics Teacher Relationship Specialty Start Date End Date Niranjan Mccarty MD [address] [place] [address] PCP - General Adolescent Medicine 10/15/23 documented as of this encounter
--- OUTSIDE RECORDS SUMMARY | 2025-08-30 10:58 | XMS_ITS | Referral Summary ---
Author Organization [employer] ([place], [place], [place], [place]) Address [address] [place] [address] Care Team Providers Care Head Librarian Name Role Phone Niranjan Mccarty MD Primary Care Provider [phone] Encounters Date Type Department Care Team Description 07/14/2025 Orders Only [facility] Electrophysiology [address] [place] [address] Antwan Mckeon RN Paroxysmal atrial fibrillation (HCC) 07/14/2025 Orders Only [facility] Electrophysiology [address] [place] [address] Antwan Mckeon RN Paroxysmal atrial fibrillation (HCC) 07/14/2025 Telephone [facility] Cardiology [address] [place] [address] Adrienne Dunn MD Medication Refill 07/06/2025 3:00 AM EDT Clinical Support [facility] Electrophysiology [address] [place] [phone] Adrienne Dunn MD Encounter for adjustment [...] 05/24/2010 Iodinated Contrast Media 10/23/2022 Other reaction(s): hivmadina ramosw Loratadine 05/24/2010 Penicillins 05/24/2010 Other reaction(s): Not [...] total) by mouth daily. 90 tablet 3 Active Active Problems Problem Noted Date Diagnosed [...] Description 10/31/2025 11:15 AM EST Office Visit [facility] Electrophysiology [address] [place] [address] Adrienne Dunn MD 1401 [facility] [address] [place], [place] [phone] Medical Devices Implanted Type Area Machine Stone Polisher Apprentice Device Identifier Shelf Expiration Date Model / Serial / Lot Pacemakers-06/13 Implanted:06/13 (Quantity not on file) Pacemakers [employer] JODY / [id number] / Description:DEPENDENT Insurance MEDICARE PART A B Care Teams Head Librarian Relationship Specialty Start Date End Date Niranjan Mccarty MD [address] [place] [address] PCP - General Adolescent Medicine 10/15/23
--- OUTSIDE RECORDS SUMMARY | 2025-08-30 10:58 | XMS_ITS | Encounter Summary ---
Author Organization [employer] ([place], [place], [place], [place]) Address [address] [place] [address] Care Team Providers Care Freezing Machine Operator Name Role Phone Niranjan Mccarty MD Primary Care Provider [phone] Encounter Details Date Type Department Care Team (Late st Contact Info) Description 10/10/2019 Transcribed Document [facility] [place] Family Medicine [facility] [place] [address] ProviderAkash MD [address] [place] [address] Social History Tobacco Use Types Packs/Day Years Used Date Smoking Tobacco: Never Assessed Comments Unknown Sex and Gender Information Value Date Recorded Sex Assigned at Not on file Legal Sex Female 1:32 PM CDT Gender Identity Not on file Sexual Orientation Not on file documented as of this encounter Miscellaneous Notes * Cerner Conversion Note - Akash ProviderMD - 10/10/2019 2:00 AM DATA ARCHITECT MANAGER Chief Controller Station Details Entered On: 10/10/2019 1:12 EST Performed [...] 10/10/2019 1:12 EST Electronically signed by Cecy [facility] Conversion Bricklayer Apprentice Cerner at 03/07/2023 1:26 PM CDT documented in this encounter Plan of Treatment Upcoming Encounters Date Type Department Care Team (Late st Contact Info) Description 10/31/2025 11:15 AM EST Office Visit [facility] Electrophysiology [address] [place] [address] Adrienne Dunn MD 1401 [facility] [address] [place], [place] [phone] documented as of this encounter Visit Diagnoses Not on filedocumented in this encounter Care Teams Freezing Machine Operator Relationship Specialty Start Date End Date Niranjan Mccarty MD [address] [place] [address] PCP - General Adolescent Medicine 10/15/23 documented as of this encounter
--- OUTSIDE RECORDS SUMMARY | 2025-08-30 10:58 | XMS_ITS | Encounter Summary ---
Author Organization [email or web address] ([place], [place], [place], [place]) Address [address] [place] [address] Care Team Providers Care Craft Manager Name Role Phone Niranjan Mccarty MD Primary Care Provider [phone] Encounter Details Date Type Department Care Team (Late st Contact Info) Description 10/09/2019 Transcribed Document [facility] [place] [address] [place] [address] ProviderAkash MD [address] [place] [address] Social History Tobacco Use Types [...] Akash Vega MD - 10/09/2019 9:00 PM PAINTING MACHINE OPERATOR Admission History, Adult Entered On: 10/09/2019 21:02 EST Performed On: 10/09/2019 21:00 EST by MEKA MANSFIELD RN Height and Weight, Clinical Dosing Height Source : Stated Height Entry Format : [place] Height, Feet : 5 ft(Converted to: 152 cm, 60 Inch) Height, Inches : 5 Inch(Converted to: 0 ft 5 Inch, 12.70 cm) Clinical Height : 165.1 cm Weight Source : Bed scale Weight Entry Format : [place] Clinical Dosing Weight : 65.51 kg Weight, Pounds : 144 lb Weight, Ounces : 2 oz Body Surface Area (BSA) : 1.72 m2 Body Mass Index : 24 kg/m2 [place] Body Weight : 57 kg MEKA MANSFIELD RN - 10/09/2019 21:00 EST Infectious Disease History Infectious Disease History : Chicken pox/Shingles, Influenza, Measles, Scarlet fever Active Surveillance Screen Assessment : Pt transferred from SNF, LTC, LONG-TERM, or rehab hospital Active Surveillance Screen Positive [...] Description 10/31/2025 11:15 AM EST Office Visit [facility] Electrophysiology [address] [place] [phone] [place] [address] [place] [address] [address] [place] [address] documented as of this encounter Visit Diagnoses Not on filedocumented in this encounter Care Teams Craft Manager Relationship Specialty Start Date End Date Niranjan Mccarty MD [address] [place] [address] PCP - General Adolescent Medicine 10/15/23 documented as of this encounter
--- OUTSIDE RECORDS SUMMARY | 2025-08-30 10:58 | XMS_ITS | Encounter Summary ---
Author Organization [employer] ([place], [place], [place], [place]) Address [address] [place] [address] Care Team Providers Care Pellet Post Inspector Name Role Phone Niranjan Mccarty MD Primary Care Provider [phone] Encounter Details Date Type Department Care Team (Late st Contact Info) Description 10/10/2019 Transcribed Document [facility] [place] [facility] [place] [address] ProviderAkash MD [address] [place] [id number] Social History Tobacco Use Types Packs/Day Years Used Date Smoking Tobacco: Never Assessed Comments Unknown Sex and Gender Information Value Date Recorded Sex Assigned at Not on file Legal Sex Female 1:32 PM CDT Gender Identity Not on file Sexual Orientation Not on file documented as of this encounter Miscellaneous Notes * Cerner Conversion Note - Akash Vega MD - 10/10/2019 8:35 AM FILLING ROOM OPERATOR Patient: TRAN PEGUERO Age: 83 Years [...] Lymph # 1.79 x10(3)/uL 10/09/2019 21:53 EST [place] % 10.3 % (High) 10/10/2019 02:57 EST [place] % 8.0 % 10/09/2019 21:53 EST [place] # 0.75 K/uL 10/10/2019 02:57 EST [place] # 0.59 K/uL 10/09/2019 21:53 EST Eos [...] mg/dL 10/10/2019 02:57 EST Electronically signed by Cecy, [facility] Conversion Management Retail Intern Cerner at 03/07/2023 1:54 PM CDT documented in this encounter Plan of Treatment Upcoming Encounters Date Type Department Care Team (Late st Contact Info) Description 10/31/2025 11:15 AM EST Office Visit [facility] Electrophysiology [address] [place], [place] [address] Adrienne Dunn MD [address] [place] [address] [address] [place] [address] documented as of this encounter Visit Diagnoses Not on filedocumented in this encounter Care Teams Pellet Post Inspector Relationship Specialty Start Date End Date Niranjan Mccarty MD [address] [place] [address] PCP - General Adolescent Medicine 10/15/23 documented as of this encounter
--- OUTSIDE RECORDS SUMMARY | 2025-08-30 10:58 | XMS_ITS | Encounter Summary ---
Author Organization [employer] ([place], [place], [place], [place]) Address [address] [place] [address] Care Team Providers Care Manager Channel Name Role Phone Niranjan Mccarty MD Primary Care Provider [phone] Encounter Details Date Type Department Care Team (Late st Contact Info) Description 10/11/2019 Transcribed Document [facility] Cardiology [address] [place] [address] Constantine Galvan MD [address] [place] [address] [address] [place] [id number] Social History Tobacco Use Types Packs/Day Years [...] 1. Normal study. 2. Ejection fraction 60%. /[id number] Constantine Galvan MD NMF/AQ / POLINA / MODL /[id number] documented in this encounter Plan of Treatment Upcoming Encounters Date Type Department Care Team (Late st Contact Info) Description 10/31/2025 11:15 AM EST Office Visit [facility] Electrophysiology [address] [place], [place] [phone] Adrienne Dunn MD [address] [place] [address] [address] [place] [address] documented as of this encounter Visit Diagnoses Not on filedocumented in this encounter Care Teams Manager Channel Relationship Specialty Start Date End Date Niranjan Mccarty MD [address] [place] [address] PCP - General Adolescent Medicine 10/15/23 documented as of this encounter
--- OUTSIDE RECORDS SUMMARY | 2025-08-30 10:58 | XMS_ITS | Encounter Summary ---
Author Organization [employer] ([place], [place], [place], [place]) Address [address] [place] [address] Care Team Providers Care Special Delivery Carrier Name Role Phone Niranjan Mccarty MD Primary Care Provider [phone] Encounter Details Date Type Department Care Team (Late st Contact Info) Description 10/10/2019 Transcribed Document [facility] [place] Family [place] [address] [place] [address] ProviderAkash MD [address] [place], [place] [phone] Social History Tobacco Use Types Packs/Day Years Used Date Smoking Tobacco: Never Assessed Comments Unknown Sex and Gender Information Value Date Recorded Sex Assigned at Not on file Legal Sex Female 1:32 PM CDT Gender Identity Not on file Sexual Orientation Not on file documented as of this encounter Miscellaneous Notes * Cerner Conversion Note - Akash Vega MD - 10/10/2019 10:57 AM CREDIT COLLECTOR Height and Weight, Routine Entered On: 10/11/2019 4:17 EST Performed On: 10/10/2019 10:57 EST by MEKA MANSFIELD RN Height and Weight, Routine Routine Weight Source : Standing scale Routine Weight Entry Format : [place] Routine Weight, Pounds : 141 lb Routine Weight, Ounces : 7 oz Routine Weight Calculation : 64.29 kg Height Source : Stated Height Entry Format : [place] Height, Feet : 5 ft Height, Inches : 5 Inch Clinical Height : 165.1 cm Body Surface Area (BSA), Routine : 1.71 m2 Body Mass Index (BMI), Routine : 23.59 kg/m2 MEKA MANSFIELD RN - 10/11/2019 4:17 EST documented in this encounter Plan of Treatment Upcoming Encounters Date Type Department Care Team (Late st Contact Info) Description 10/31/2025 11:15 AM EST Office Visit [facility] Electrophysiology [address] [place] [phone] Adrienne Dunn MD [address] [place] [address] [address] [place] [phone] documented as of this encounter Visit Diagnoses Not on filedocumented in this encounter Care Teams Special Delivery Carrier Relationship Specialty Start Date End Date Niranjan Mccarty MD [address] [place] [address] PCP - General Adolescent Medicine 10/15/23 documented as of this encounter
--- OUTSIDE RECORDS SUMMARY | 2025-08-30 10:58 | XMS_ITS | Encounter Summary ---
Author Organization [employer] ([place], [place], [place], [place]) Address [address] [place] [address] Care Team Providers Care Director Pharmacovigilance Name Role Phone Niranjan Mccarty MD Primary Care Provider [phone] Encounter Details Date Type Department Care Team (Late st Contact Info) Description 10/11/[address] [facility] [place] Family [place] [facility] [place] [address] ProviderAkash MD [address] [place] [address] Social History Tobacco Use Types Packs/Day Years Used Date Smoking Tobacco: Never Assessed Comments Unknown Sex and Gender Information Value Date Recorded Sex Assigned at Not on file Legal Sex Female 1:32 PM CDT Gender Identity Not on file Sexual Orientation Not on file documented as of this encounter Miscellaneous Notes * Cerner Conversion Note - Historical ProviderMD - 10/11/2019 12:11 PM DYE MAKER Attempt to Treat, PT Entered On: 10/11/2019 [...] 10/11/2019 12:11 EST Electronically signed by Cecy [facility] Conversion Supervisor Paint Department Cerner at 03/07/2023 1:24 PM CDT documented in this encounter Plan of Treatment Upcoming Encounters Date Type Department Care Team (Late st Contact Info) Description 10/31/2025 11:15 AM EST Office Visit [facility] Electrophysiology [address] [place] [address] Adrienne Dunn MD 1401 [facility] [address] [place], [place] [phone] documented as of this encounter Visit Diagnoses Not on filedocumented in this encounter Care Teams Director Pharmacovigilance Relationship Specialty Start Date End Date Niranjan Mccarty MD [address] [place] [address] PCP - General Adolescent Medicine 10/15/23 documented as of this encounter
--- OUTSIDE RECORDS SUMMARY | 2025-08-30 10:58 | XMS_ITS | Encounter Summary ---
Author Organization [employer] ([place], [place], [place], [place]) Address [address] [place] [address] Care Team Providers Care Marina Dry Dock Manager Name Role Phone Niranjan Mccarty MD Primary Care Provider [phone] Encounter Details Date Type Department Care Team (Late st Contact Info) Description 10/11/2019 Transcribed Document [facility] Family Medicine [facility] [place] [address] ProviderAkash MD [address] [place] [address] Social History Tobacco Use Types Packs/Day [...] Akash Vega MD - 10/11/2019 8:57 AM PSYCHIATRIC NURSE PRACTITIONER Event Note Entered On: 10/11/2019 8:57 EST [...] Description 10/31/2025 11:15 AM EST Office Visit [facility] Electrophysiology [address] [place] [address] Adrienne Dunn MD 1401 [facility] [address] [place] [address] documented as of this encounter Visit Diagnoses Not on filedocumented in this encounter Care Teams Marina Dry Dock Manager Relationship Specialty Start Date End Date Niranjan Mccarty MD [address] [place] [address] PCP - General Adolescent Medicine 10/15/23 documented as of this encounter
--- OUTSIDE RECORDS SUMMARY | 2025-08-30 10:58 | XMS_ITS | Clinical Summary ---
Author Organization [employer] ([place], [place], [place], [place]) Address [address] [place] [address] Care Team Providers Care Forensic Examiner Name Role Phone Niranjan Mccarty MD Primary Care Provider [phone] Allergies Active Allergy Reactions Criticality Noted Date [...] mouth daily. 90 tablet 3 5 Active Active Problems Problem Noted Date Diagnosed Date Encounter for adjustment or management of cardia c device 11/29/2024 Paroxysmal atrial fibrillation 04/06/2024 0 04/06/2024 Complete atrioventricular block 09/19/2021 04/06/2024 Presence of cardiac pacemaker 06/07/2021 Hyperlipidemia 09/18/2020 04/06/2024 Sick sinus syndrome 09/15/2019 04/06/2024 Hypertension 09/15/2019 04/06/2024 Encounters Date Type Department Care Team Description 07/14/2025 Orders Only [facility] Electrophysiology [address] [place] [address] Antwan Mckeon RN Paroxysmal atrial fibrillation (HCC) 07/14/2025 Orders Only [facility] Electrophysiology [address] [place] [address] Antwan Mckeon RN Paroxysmal atrial fibrillation (HCC) 07/14/2025 Telephone [facility] Cardiology [address] [place] [address] Adrienne Dunn MD Medication Refill 07/06/2025 3:00 AM EDT Clinical Support [facility] Electrophysiology [address] [place] [address] Adrienne Dunn MD Encounter for adjustment [...] Date Garrett rded Speak language other than Greek at home Not on file 11/28/2023 Want [...] Description 10/31/2025 11:15 AM EST Office Visit [facility] Electrophysiology [address] [place] [address] Adrienne Dunn MD 1401 [facility] [address] [place] [address] Health Maintenance Due Date Last Done Comments Medicare Initial AWV G0438 Depression Screening (12+) 1947 DTAP/TDAP/TD VACCINES (1 - Tdap) 1954 Pneumococcal 50+ years (1 of 2 - PCV) 1954 Shingles Vaccine (Zoster) (1 of 2) 1985 Respiratory Syncytial Virus (RSV) Adult or (1 - 1-dose 75+ series) 2010 Falls Risk Screening 11/17/2024 COVID-19 VACCINE ( - 2023- season) 2025 Influenza Vaccine (#1) 2025 Tobacco Cessation Counseling and Screening (12+) 03/0203/02/2025 Medical Devices Implanted Type Area Test Equipment Mechanic Device Identifier Shelf Expiration Date Model / Serial / Lot Pacemakers-06/13 Implanted:06/13 (Quantity not on file) Pacemakers [employer] JODY / [id number] / Description:DEPENDENT Insurance MEDICARE PART A B Care Teams Forensic Examiner Relationship Specialty Start Date End Date Niranjan Mccarty MD [address] [place] [address] PCP - General Adolescent Medicine 10/15/23
--- OUTSIDE RECORDS SUMMARY | 2025-08-30 10:58 | XMS_ITS | Encounter Summary ---
Author Organization [employer] ([place], [place], [place], [place]) Address [address] [place] [address] Care Team Providers Care Behavior Management Specialist Name Role Phone Niranjan Mccarty MD Primary Care Provider [phone] Encounter Details Date Type Department Care Team (Late st Contact Info) Description 10/10/2019 Transcribed Document [facility] Cardiology [address] [place] [phone] [place] [address] [place] [address] [address] [place] [address] Social History Tobacco Use Types Packs/Day Years [...] MD-CAR Basic Information PCP: NIRANJAN MORRIS MD Ceramic Restorer: Coel SAMUEL Chief Complaint chest pain History of Present Illness 83 year old female with a history of hypertension, hyperlipidemia, atrial fibrillation, SSS status post pacemaker placement, chronic anticoagulation with Coumadin, COPD. She presented to [facility] ER yesterday with complaints of chest pain. The pain was localized in the left side and radiated into her neck. She became diaphoretic and nauseated. The pain lasted for several minutes but returned later prompting her to seek medical attention. Troponin was negative however, based on her history and symptoms she was transferred to [facility] for evaluation. She is currently chest [...] l Past Medical History: Active Atrial fibrillation ([id number]) Hyperlipidemia ([id number]) Hypertension (73503861) Family History: Non contributory Procedure history: Appendectomy; (36656). cataract surgery. Cholecystectomy; (88774). eye surgery. foot surgery right. hand surgery. [...] of motion, Normal strength. Integumentary: Warm, Dry, Shoshoni. Neurologic: Alert, Oriented. Psychiatric: Cooperative. Review / [...] Description 10/31/2025 11:15 AM EST Office Visit [facility] Electrophysiology [address] [place] [address] Adrienne Dunn MD [address] [place] [address] [address] [place] [address] documented as of this encounter Visit Diagnoses Not on filedocumented in this encounter Care Teams Behavior Management Specialist Relationship Specialty Start Date End Date Niranjan Mccarty MD [address] [place] [address] PCP - General Adolescent Medicine 10/15/23 documented as of this encounter
--- OUTSIDE RECORDS SUMMARY | 2025-08-30 10:58 | XMS_ITS | Encounter Summary ---
Author Organization [employer] ([place], [place], [place], [place]) Address [address] [place] [address] Care Team Providers Care Vice President Marketing & Development Name Role Phone Niranjan Mccarty MD Primary Care Provider [phone] Encounter Details Date Type Department Care Team (Late st Contact Info) Description 10/11/2019 Transcribed Document [facility] Family Medicine [facility] [place] [address] ProviderAkash MD [address] [place] [address] Social History Tobacco Use Types Packs/Day [...] Akash Vega MD - 10/11/2019 9:00 PM CNA PCT Pain Assessment Entered On: 10/12/2019 6:31 EST Performed On: 10/11/2019 23:11 EST by MAXX BARRERA, RN Intervention Information: traMADol Performed by MAXX BARRERA RN on 10/11/2019 22:11:00 EST traMADol,50mg Oral Pain Assessment Pain Assessment : Follow-up assessment Pain Scale Goal : 4 Pain Improved by Intervention : Yes MAXX BARRERA, RN - 10/12/2019 6:31 EST Electronically signed by Cecy [facility] Conversion Medical Reception Cerner at 03/07/2023 1:48 PM CDT documented in this encounter Plan of Treatment Upcoming Encounters Date Type Department Care Team (Late st Contact Info) Description 10/31/2025 11:15 AM EST Office Visit [facility] Electrophysiology [address] [place] [address] Adrienne Dunn MD 1401 [facility] [address] [place], [place] [id number] documented as of this encounter Visit Diagnoses Not on filedocumented in this encounter Care Teams Vice President Marketing & Development Relationship Specialty Start Date End Date Niranjan Mccarty MD [address] [place] [address] PCP - General Adolescent Medicine 10/15/23 documented as of this encounter
--- OUTSIDE RECORDS SUMMARY | 2025-08-30 10:58 | XMS_ITS | Encounter Summary ---
Author Organization [employer] ([place], [place], [place], [place]) Address [address] [place] [address] Care Team Providers Care Medical Delivery Driver Name Role Phone Niranjan Mccarty MD Primary Care Provider [phone] Encounter Details Date Type Department Care Team (Late st Contact Info) Description 10/11/2019 Transcribed Document [facility] Family Medicine [address] [place] [address] ProviderAkash MD [address] [place] [address] Social History Tobacco Use Types [...] - Akash ProviderMD - 10/11/2019 5:00 AM GEOMETRY TEACHER Chart Check - Review Order Profile Entered On: 10/11/2019 4:17 EST Performed On: 10/11/2019 5:00 EST by MEKA MANSFIELD RN Chart Check All Active Orders Reviewed : Yes MEKA MANSFIELD RN - 10/11/2019 4:17 EST documented in this encounter Plan of Treatment Upcoming Encounters Date Type Department Care Team (Late st Contact Info) Description 10/31/2025 11:15 AM EST Office Visit [address] [address] Adrienne Dunn MD 1401 [facility] [address] [place], [place] [phone] documented as of this encounter Visit Diagnoses Not on filedocumented in this encounter Care Teams Medical Delivery Driver Relationship Specialty Start Date End Date Niranjan Mccarty MD [address] [place] [address] PCP - General Adolescent Medicine 10/15/23 documented as of this encounter
--- OUTSIDE RECORDS SUMMARY | 2025-08-30 10:58 | XMS_ITS | Encounter Summary ---
Author Organization [employer] ([place], [place], [place], [place]) Address [address] [place] [address] Care Team Providers Care Brine Mixer Operator Name Role Phone Niranjan Mccarty MD Primary Care Provider [phone] Encounter Details Date Type Department Care Team (Late st Contact Info) Description 10/11/2019 Transcribed Document [facility] Family Medicine [facility] [address] ProviderAkash MD [address] [place] [phone] Social History Tobacco Use Types Packs/Day Years Used Date Smoking Tobacco: Never Assessed Comments Unknown Sex and Gender Information Value Date Recorded Sex Assigned at Not on file Legal Sex Female 1:32 PM CDT Gender Identity Not on file Sexual Orientation Not on file documented as of this encounter Miscellaneous Notes * Cerner Conversion Note - Akash Vega MD - 10/11/2019 8:37 AM MULTI SPINDLE OPERATOR Patient: TRAN PEGUERO Age: 83 Years [...] 10/11/2019 04:25 EST Electronically signed by Cecy [facility] Conversion Civil Division Deputy Sheriff Cerner at 03/07/2023 1:25 PM CDT documented in this encounter Plan of Treatment Upcoming Encounters Date Type Department Care Team (Late st Contact Info) Description 10/31/2025 11:15 AM EST Office Visit [facility] Electrophysiology [address] [place] [address] [place] [address] [place] [address] [address] [place] [address] documented as of this encounter Visit Diagnoses Not on filedocumented in this encounter Care Teams Brine Mixer Operator Relationship Specialty Start Date End Date Niranjan Mccarty MD [address] [place] [address] PCP - General Adolescent Medicine 10/15/23 documented as of this encounter
--- OUTSIDE RECORDS SUMMARY | 2025-08-30 10:59 | XMS_ITS | Encounter Summary ---
Author Organization [employer] ([place], [place], [place], [place]) Address [address] [place] [address] Care Team Providers Care Waiter/Waitress Informal Name Role Phone Niranjan Mccarty MD Primary Care Provider [phone] Encounter Details Date Type Department Care Team (Late st Contact Info) Description 06/13/2021 Transcribed Document [facility] Family Medicine [facility] [place] [address] ProviderAkash MD [address] [place], [place] [...] Vega MD - 06/13/2021 3:12 PM CDT [facility] [place] [id number] WILD TAL KELLY :1935 Visit Time:06/12/2021 Your [...] Dr. Dunn Appointment has been made Where: [facility] [address] [place] [address]- [employer] (1) Medications What How Much When Instructions [...] these instructions at home: Medicines ??? Take scun-qmp-gfdrfzm and prescription medicines only as told by [...] and water are not available, use hand watershed program manager. ? Change your dressing as told [...] your chest for several days. ??? Take yukr-fqv-wblrzoo and prescription medicines only as told by [...] Reviewed: 10/04/2019 Elsevier Patient Education ?? 2020 [employer]. Heart-Healthy Eating Plan Heart-healthy meal planning [...] Fats and oils Meat fat, or shortening. [place] butter, hydrogenated oils, palm oil, coconut oil, [...] provider. Document Revised: 01/07/2019 Document Reviewed: 12/11/2018 ElseYattos Patient Education ?? 2020 [employer]. Emergency Awareness and Preventative Care STROKE [...] Assistance with quitting is available by contacting 9-241-RGYN-NOW. This is a free resource providing counseling, [...] range between ( 0.0 and 7.0 ) [place] #: 0.48 K/uL -- Normal range between ( 0.16 and 1.00 ) Eos #: 0.16 x10(3)/uL -- Normal range between ( 0.00 and 0.80 ) [place] %: 8.0 % -- Normal range between [...] was given the opportunity to ask questions. Patient/Residential Nurse Name: Patient/Residential Nurse Signature: Relationship to Patient: Clinician/Hospital Residential Nurse Signature: Date: documented in this encounter Plan of Treatment Upcoming Encounters Date Type Department Care Team (Late st Contact Info) Description 10/31/2025 11:15 AM EST Office Visit [facility] Electrophysiology [address] [place], [place] [phone] Ewa Dunn MD [address] [place] [address] [address] [place] [phone] documented as of this encounter Visit Diagnoses Not on filedocumented in this encounter Care Teams Waiter/Waitress Informal Relationship Specialty Start Date End Date Niranjan Mccarty MD [address] [place] [address] PCP - General Adolescent Medicine 10/15/23 documented as of this encounter
--- OUTSIDE RECORDS SUMMARY | 2025-08-30 10:59 | XMS_ITS | Encounter Summary ---
Author Organization [employer] ([place], [place], [place], [place]) Address [address] [place] [address] Care Team Providers Care Launderette Attendant Name Role Phone Niranjan Mccarty MD Primary Care Provider [phone] Encounter Details Date Type Department Care Team (Late st Contact Info) Description 10/10/2019 Transcribed Document [facility] Family Medicine [address] [place] [address] ProviderAkash MD [address] [place] [address] Social History Tobacco Use Types Packs/Day Years Used Date Smoking Tobacco: Never Assessed Comments Unknown Sex and Gender Information Value Date Recorded Sex Assigned at Not on file Legal Sex Female 1:32 PM CDT Gender Identity Not on file Sexual Orientation Not on file documented as of this encounter Miscellaneous Notes * Cerner Conversion Note - Akash ProviderMD - 10/10/2019 5:00 AM PARK AIDE Chart Check - Review Order Profile Entered On: 10/10/2019 4:41 EST Performed On: 10/10/2019 5:00 EST by MEKA MANSFIELD RN Chart Check All Active Orders Reviewed : Yes MEKA MANSFIELD RN - 10/10/2019 4:41 EST documented in this encounter Plan of Treatment Upcoming Encounters Date Type Department Care Team (Late st Contact Info) Description 10/31/2025 11:15 AM EST Office Visit [address] [address] Adrienne Dunn MD 1401 [facility] [address] [place], [place] [id number] documented as of this encounter Visit Diagnoses Not on filedocumented in this encounter Care Teams Launderette Attendant Relationship Specialty Start Date End Date Niranjan Mccarty MD [address] [place] [address] PCP - General Adolescent Medicine 10/15/23 documented as of this encounter
--- OUTSIDE RECORDS SUMMARY | 2025-08-30 10:59 | XMS_ITS | Encounter Summary ---
Author Organization [employer] ([place], [place], [place], [place]) Address [address] [place] [address] Care Team Providers Care Plater Production Name Role Phone Niranjan Mccarty MD Primary Care Provider [phone] Encounter Details Date Type Department Care Team (Late st Contact Info) Description 06/13/2021 Transcribed Document [facility] Family Medicine [facility] [place] [address] ProviderAkash MD [address] [place] [address] Social History Tobacco Use [...] Vega MD - 06/13/2021 3:30 PM CDT [facility] [place] [id number] WILD TRAN KELLY :1935 Visit Time:06/12/2021 Your [...] Dr. Dunn Appointment has been made Where: [facility] [address] [place] [address]- Business (1) Medications What How Much When [...] these instructions at home: Medicines ??? Take zanz-hsx-nmdhque and prescription medicines only as told by [...] and water are not available, use hand windmill mechanic. ? Change your dressing as told by [...] your chest for several days. ??? Take rcgb-yla-antfyqm and prescription medicines only as told by [...] Reviewed: 10/04/2019 Elsevier Patient Education ?? 2020 ElseTopic Inc. Heart-Healthy Eating Plan Heart-healthy meal planning [...] Fats and oils Meat fat, or shortening. [place] butter, hydrogenated oils, palm oil, coconut oil, [...] provider. Document Revised: 01/07/2019 Document Reviewed: 12/11/2018 A[employer] Solutions Patient Education ?? 2020 [employer]. Emergency Awareness and Preventative Care STROKE is [...] Assistance with quitting is available by contacting 6-468-MFJI-NOW. This is a free resource providing counseling, [...] range between ( 0.0 and 7.0 ) [place] #: 0.48 K/uL -- Normal range between ( 0.16 and 1.00 ) Eos #: 0.16 x10(3)/uL -- Normal range between ( 0.00 and 0.80 ) [place] %: 8.0 % -- Normal range between [...] was given the opportunity to ask questions. Patient/Wooden Barrel Mechanic Name: Patient/Wooden Barrel Mechanic Signature: Relationship to Patient: Clinician/Hospital Wooden Barrel Mechanic Signature: Date: Electronically signed by Interface, [facility] Conversion Dentistry Professor Cerner at 03/07/2023 1:48 PM CDT documented in this encounter Plan of Treatment Upcoming Encounters Date Type Department Care Team (Late st Contact Info) Description 10/31/2025 11:15 AM EST Office Visit [facility] Electrophysiology [address] [place] [address] Adrienne Dunn MD [address] [place] [address] [address] [place] [address] documented as of this encounter Visit Diagnoses Not on filedocumented in this encounter Care Teams Plater Production Relationship Specialty Start Date End Date Niranjan Mccarty MD [address] [place] [address] PCP - General Adolescent Medicine 10/15/23 documented as of this encounter
--- OUTSIDE RECORDS SUMMARY | 2025-08-30 10:59 | XMS_ITS | Encounter Summary ---
Author Organization [employer] ([place], [place], [place], [place]) Address [address] [place] [address] Care Team Providers Care Mapping Specialist Name Role Phone Niranjan Mccarty MD Primary Care Provider [phone] Encounter Details Date Type Department Care Team (Late st Contact Info) Description 08/22/2023 Telephone [facility] Cardiology [address] [facility], [address] [address] Patrick Travis DO 1[address] [facility] [address] [place] [address] Social History Tobacco Use Types [...] Description 10/31/2025 11:15 AM EST Office Visit [facility] Electrophysiology [address] [place] [address] [place] [address] [place] [address] [address] [place] [address] documented as of this encounter Visit Diagnoses Not on filedocumented in this encounter Care Teams Mapping Specialist Relationship Specialty Start Date End Date Niranjan Mccarty MD [address] [place] [address] PCP - General Adolescent Medicine 10/15/23 documented as of this encounter
--- OUTSIDE RECORDS SUMMARY | 2025-08-30 10:59 | XMS_ITS | Encounter Summary ---
Author Organization [employer] ([place], [place], [place], [place]) Address [address] [place] [address] Care Team Providers Care Emergency Technician Name Role Phone Niranjan Mccarty MD Primary Care Provider [phone] Encounter Details Date Type Department Care Team (Late st Contact Info) Description 06/12/2021 Transcribed Document [facility] Family Medicine [facility] [place] [address] ProviderAkash MD [address] [place] [phone] Social History Tobacco Use Types Packs/Day Years [...] Age: 85 Years Sex: Female : 1935 Senior Architect: Julián Amaya MD Indication: dual chamber pacemaker [...] generator was a Medtronic model [id number] SN [id number] that replaced the old generator. Complications: No [...] [facility] Electrophysiology [address] [place] [address] Adrienne Dunn MD [address] [facility] [address] [place], [place] [phone] documented as of this encounter Visit Diagnoses Not on filedocumented in this encounter Care Teams Emergency Technician Relationship Specialty Start Date End Date Niranjan Mccarty MD [address] [place] [address] PCP - General Adolescent Medicine 10/15/23 documented as of this encounter
--- OUTSIDE RECORDS SUMMARY | 2025-08-30 10:59 | XMS_ITS | Encounter Summary ---
Author Organization [employer] ([place], [place], [place], [place]) Address [address] [place] [address] Care Team Providers Care Computer Lab Aide Name Role Phone Niranjan Mccarty MD Primary Care Provider [phone] Encounter Details Date Type Department Care Team (Late Contact Info) Description 06/13/2021 Transcribed Document [facility] Family Medicine [facility] [place] [address] ProviderAkash MD [address] [place] [phone] Social History Tobacco Use Types Packs/Day Years [...] Department Care Team (Late Contact Info) Description 10/31/2025 11:15 AM EST Office Visit [facility] Electrophysiology [address] [place] [phone] Adrienne Dunn MD 1401 [facility] [address] [place] [address] documented as of this encounter Visit Diagnoses Not on filedocumented in this encounter Care Teams Computer Lab Aide Relationship Specialty Start Date End Date Niranjan Mccarty MD [address] [place] [address] PCP - General Adolescent Medicine 10/15/23 documented as of this encounter
--- OUTSIDE RECORDS SUMMARY | 2025-08-30 10:59 | XMS_ITS | Encounter Summary ---
Author Organization [employer] ([place], [place], [place], [place]) Address [address] [place] [address] Care Team Providers Care Operator Lights Name Role Phone Niranjan Mccarty MD Primary Care Provider [phone] Encounter Details Date Type Department Care Team (Late st Contact Info) Description 06/12/2021 Transcribed Document [facility] Family Medicine [facility] [place] [address] ProviderAkash MD [address] [place] [phone] Social History Tobacco Use Types Packs/Day Years [...] Description 10/31/2025 11:15 AM EST Office Visit [facility] Electrophysiology [address] [place] [address] [place] [address] [place] [address] [address] [place], [place] [phone] documented as of this encounter Visit Diagnoses Not on filedocumented in this encounter Care Teams Operator Lights Relationship Specialty Start Date End Date Niranjan Mccarty MD [address] [place] [address] PCP - General Adolescent Medicine 10/15/23 documented as of this encounter
--- OUTSIDE RECORDS SUMMARY | 2025-08-30 10:59 | XMS_ITS | Encounter Summary ---
Author Organization [employer] ([place], [place], [place], [place]) Address [address] [place] [address] Care Team Providers Care Computer Scientist Name Role Phone Niranjan Mccarty MD Primary Care Provider [phone] Encounter Details Date Type Department Care Team (Late st Contact Info) Description 07/14/2025 Orders Only [facility] Electrophysiology [address] [place] [address] Antwan Mckeon RN Paroxysmal atrial fibrillation [...] Date Garrett rded Speak language other than Malian at home Not on file 11/28/2023 Want [...] EST Office Visit [facility] Electrophysiology [address] [place] [address] Adrienne Dunn MD [address] [facility] [address] [place] [address] documented as of this encounter Visit Diagnoses Diagnosis Paroxysmal atrial fibrillation (HCC) Atrial fibrillation documented in this encounter Care Teams Computer Scientist Relationship Specialty Start Date End Date Niranjan Mccarty MD [address] [place] [address] PCP - General Adolescent Medicine 10/15/23 documented as of this encounter
--- OUTSIDE RECORDS SUMMARY | 2025-08-30 10:59 | XMS_ITS | Encounter Summary ---
Author Organization [employer] ([place], [place], [place], [place]) Address [address] [place] [address] Care Team Providers Care Endocrinology Specialist Name Role Phone Niranjan Mccarty MD Primary Care Provider [phone] Encounter Details Date Type Department Care Team (Late st Contact Info) Description 06/13/2021 Transcribed Document [facility] [place] [facility] [place] [address] ProviderAkash MD [address] [place] [address] Social History Tobacco Use Types [...] Vega MD - 06/13/2021 3:32 PM CDT [facility] [place] [id number] WILD TRANDAREN MENDOZA :1935 Visit Time:06/12/2021 Your [...] Dr. Dunn Appointment has been made Where: [facility] [address] [place] [address]- Business (1) Medications What How Much When [...] these instructions at home: Medicines ??? Take simm-tfp-vtpnmnx and prescription medicines only as told by [...] and water are not available, use hand artist scientific. ? Change your dressing as told by [...] your chest for several days. ??? Take byov-lzo-buuoloq and prescription medicines only as told by [...] Reviewed: 10/04/2019 Elsevier Patient Education ?? 2020 [employer] Heart-Healthy Eating Plan Heart-healthy meal planning [...] Fats and oils Meat fat, or shortening. [place] butter, hydrogenated oils, palm oil, coconut oil, [...] provider. Document Revised: 01/07/2019 Document Reviewed: 12/11/2018 [employer] Patient Education ?? 2020 [employer]. Emergency Awareness and Preventative Care STROKE is [...] Assistance with quitting is available by contacting 8-103-SXEW-NOW. This is a free resource providing counseling, [...] range between ( 0.0 and 7.0 ) [place] #: 0.48 K/uL -- Normal range between ( 0.16 and 1.00 ) Eos #: 0.16 x10(3)/uL -- Normal range between ( 0.00 and 0.80 ) Dupage %: 8.0 % -- Normal range between [...] was given the opportunity to ask questions. Patient/Background Investigator Name: Patient/Background Investigator Signature: Relationship to Patient: Clinician/Hospital Background Investigator Signature: Date: Electronically signed by Interface, [facility] Conversion Smoking Pipe Mounter Cerner at 03/07/2023 1:44 PM CDT documented in this encounter Plan of Treatment Upcoming Encounters Date Type Department Care Team (Late st Contact Info) Description 10/31/2025 11:15 AM EST Office Visit [facility] Electrophysiology [address] [place] [phone] Adrienne Dunn MD [address] [place] [address] [address] [place] [address] documented as of this encounter Visit Diagnoses Not on filedocumented in this encounter Care Teams Endocrinology Specialist Relationship Specialty Start Date End Date Niranjan Mccarty MD [address] [place] [address] PCP - General Adolescent Medicine 10/15/23 documented as of this encounter
--- OUTSIDE RECORDS SUMMARY | 2025-08-30 10:59 | XMS_ITS | Encounter Summary ---
Author Organization [employer] ([place], [place], [place], [place]) Address [address] [place] [address] Care Team Providers Care Travel Ot Name Role Phone Niranjan Mccarty MD Primary Care Provider [phone] Encounter Details Date Type Department Care Team (Late st Contact Info) Description 06/13/2021 Transcribed Document [facility] [address] [place] [address] ProviderAkash MD [address] [place], [place] [id number] Social History Tobacco Use Types Packs/Day Years [...] Insurance 1 Health Plan: MEDICARE Policy Number: [id number] Authorization Number: Insurance 2 Health Plan: [facility] Policy Number: [id number] Authorization Number: Insurance Primary Name : MEDICARE Authorized Service Begin Date-Primary : 06/12/2021 EDT Historical Authorization Comments-Primary : No Authorization Comments Found Jen Rothman Rn-Utilization Review - 06/13/2021 13:21 EDT Electronically signed by Cecy [facility] Conversion Carpentry Professional Cerner at 03/07/2023 1:31 PM CDT documented in this encounter Plan of Treatment Upcoming Encounters Date Type Department Care Team (Late st Contact Info) Description 10/31/2025 11:15 AM EST Office Visit [facility] Electrophysiology [address] [place] [address] Adrienne Dunn MD [address] [place] [address] [address] [place] [id number] documented as of this encounter Visit Diagnoses Not on filedocumented in this encounter Care Teams Travel Ot Relationship Specialty Start Date End Date Niranjan Mccarty MD [address] [place] [address] PCP - General Adolescent Medicine 10/15/23 documented as of this encounter
--- OUTSIDE RECORDS SUMMARY | 2025-08-30 10:59 | XMS_ITS | Encounter Summary ---
Author Organization [employer] ([place], [place], [place], [place]) Address [address] [place] [address] Care Team Providers Care Email Marketing Processor Name Role Phone Niranjan Mccarty MD Primary Care Provider [phone] Encounter Details Date Type Department Care Team (Late st Contact Info) Description 08/23/2021 Transcribed Document [facility] [place] [facility] [address] ProviderAkash MD [address] [place], [place] [id number] Social History Tobacco Use Types Packs/Day Years [...] as documented in chart. Surgical history: Appendectomy; (55383). cataract surgery. Cholecystectomy; (03177). eye surgery. foot surgery right. hand surgery. [...] EDT Height Source Stated Height Entry Format [place] Height/Length, KITTITIAN (ft) 5 ft Height/Length [place] 7 Inch CLINICALHEIGHT 170.18 cm [place] Body Weight 61.16 kg Weight Source, ED Critical estimated dosing weight Weight Entry Format [place] Weight Cook Islander lb 140 lb CLINICALWEIGHT 63.64 kg Body [...] Triage: ED C-SSRS: ED Clinical Reconciliation: ED washcoat wiper: EKG: Lactic Acid Level with Reflex if [...] 15.1 % LOW Lymph # 1.28 K/uL [place] % 5.9 % [place] # 0.50 K/uL Eos % 3.3 % Eos # 0.28 Baso % 0.2 % Baso # 0.02 Slide Review No Urine Type. U CleanCatch Urine Color Yellow Urine Appearance Clear Urine Specific [place] 1.007 Urine pH Dipstick *8.0 Urine Leukocyte Esterase Negative Urine Nitrite Negative Urine Protein Dipstick Negative Urine Glucose Dipstick Negative Urine Ketones Dipstick Negative Urine Urobilinogen Dipstick 0.2 EU/dL Urine Bilirubin Dipstick Negative Urine Blood Dipstick Small Ur RBC 5-10 /HPF Ur WBC 0-2 /HPF Urine Culture if Indicated Not Indicated . Radiology results: Radiology Results (Last 48 hours) [id number] -- 08/23/2021 13:33 CR Chest 1 Vw [...] EDT, Discharge to: Home . Prescriptions: Prescription Health Information Provider Pharmacy: [facility] Dosepak 4 mg oral tablet [...] Description 10/31/2025 11:15 AM EST Office Visit [facility] Electrophysiology [address] [place], [place] [phone] Adrienne Dunn MD [address] [place] [address] [address] [place] [id number] documented as of this encounter Visit Diagnoses Not on filedocumented in this encounter Care Teams Email Marketing Processor Relationship Specialty Start Date End Date Niranjan Mccarty MD [address] [place] [address] PCP - General Adolescent Medicine 10/15/23 documented as of this encounter
--- OUTSIDE RECORDS SUMMARY | 2025-08-30 10:59 | XMS_ITS | Encounter Summary ---
Author Organization [employer] ([place], [place], [place], [place]) Address [address] [place] [address] Care Team Providers Care Substation Operator Apprentice Name Role Phone Niranjan Mccarty MD Primary Care Provider [phone] Encounter Details Date Type Department Care Team (Late st Contact Info) Description 10/10/2019 Transcribed Document [facility] [place] [facility] [place] [address] ProviderAkash MD [address] [place] [id number] Social History Tobacco Use Types Packs/Day Years Used Date Smoking Tobacco: Never Assessed Comments Unknown Sex and Gender Information Value Date Recorded Sex Assigned at Not on file Legal Sex Female 1:32 PM CDT Gender Identity Not on file Sexual Orientation Not on file documented as of this encounter Miscellaneous Notes * Cerner Conversion Note - Akash Vega MD - 10/10/2019 8:07 AM PHYSICALLY IMPAIRED TEACHER Patient: TRAN PEGUERO Age: 83 years Sex: [...] Daily PT/INR ordered Nataly Diaz PharmD PGY-1 Fast Food Cashier Pager: [phone] documented in this encounter Plan of Treatment Upcoming Encounters Date Type Department Care Team (Late st Contact Info) Description 10/31/2025 11:15 AM EST Office Visit [facility] Electrophysiology [address] [place] [address] Adrienne Dunn MD [address] [facility] [address] [place] [address] documented as of this encounter Visit Diagnoses Not on filedocumented in this encounter Care Teams Substation Operator Apprentice Relationship Specialty Start Date End Date Niranjan Mccarty MD [address] [place] [address] PCP - General Adolescent Medicine 10/15/23 documented as of this encounter
--- OUTSIDE RECORDS SUMMARY | 2025-08-30 10:59 | XMS_ITS | Encounter Summary ---
Author Organization [employer] ([place], [place], [place], [place]) Address [address] [place] [address] Care Team Providers Care Tenter Feeder Name Role Phone Niranjan Mccarty MD Primary Care Provider [phone] Encounter Details Date Type Department Care Team (Late st Contact Info) Description 06/13/2021 Transcribed Document [facility] [place] [facility] [place] [address] ProviderAkash MD [address] [place], [place] [phone] Social History Tobacco Use Types Packs/Day Years [...] On: 06/13/2021 13:14 EDT by SHERRILL JUÁREZ, RN-Tube Trailer Filler Final Discharge Planning Discharge Arrangements : Patient [...] : Yes Discharge To Care Management : Home/Residential/Residential or Self Care -01 SHERRILL JUÁREZ, RN-Tube Trailer Filler - 06/13/2021 13:14 EDT documented in this encounter Plan of Treatment Upcoming Encounters Date Type Department Care Team (Late st Contact Info) Description 10/31/2025 11:15 AM EST Office Visit [facility] Electrophysiology [address] [place], [place] [phone] Adrienne Dunn MD [address] [place] [address] [address] [place] [address] documented as of this encounter Visit Diagnoses Not on filedocumented in this encounter Care Teams Tenter Feeder Relationship Specialty Start Date End Date Niranjan Mccarty MD [address] [place] [address] PCP - General Adolescent Medicine 10/15/23 documented as of this encounter
--- OUTSIDE RECORDS SUMMARY | 2025-08-30 10:59 | XMS_ITS | Encounter Summary ---
Author Organization [employer] ([place], [place], [place], [place]) Address [address] [place] [address] Care Team Providers Care Bleach Plant Operator Name Role Phone Niranjan Mccarty MD Primary Care Provider [phone] Encounter Details Date Type Department Care Team (Late st Contact Info) Description 08/23/2021 Transcribed Document [facility] [place] Family Medicine [address] [place] [address] ProviderAkash MD [address] [place], [place] [id number] Social History Tobacco Use Types Packs/Day Years [...] : Low risk (0) [place] Interventions : [place] precautions for safety used GEORGINA EVERETT RN - 08/23/2021 13:43 EDT documented in this encounter Plan of Treatment Upcoming Encounters Date Type Department Care Team (Late st Contact Info) Description 10/31/2025 11:15 AM EST Office Visit [facility] Electrophysiology [address] [place] [address] [place] [address] [place] [address] [address] [place] [address] documented as of this encounter Visit Diagnoses Not on filedocumented in this encounter Care Teams Bleach Plant Operator Relationship Specialty Start Date End Date Niranjan Mccarty MD [address] [place] [address] PCP - General Adolescent Medicine 10/15/23 documented as of this encounter
--- OUTSIDE RECORDS SUMMARY | 2025-08-30 10:59 | XMS_ITS | Encounter Summary ---
Author Organization [employer] ([place], [place], [place], [place]) Address [address] [place] [address] Care Team Providers Care Agent Contract Clerk Name Role Phone Niranjan Mccarty MD Primary Care Provider [phone] Encounter Details Date Type Department Care Team (Late st Contact Info) Description 06/12/[address] [facility] [place] Medicine [facility] [place] [address] ProviderAkash MD [address] [place] [id number] Social History Tobacco Use Types Packs/Day Years [...] Description of Event : [facility]. Pt transferred to room 428 MIRTA CRUM RN - 06/12/2021 20:09 EDT Electronically signed by Cecy [facility] Conversion Supervisory Historian Cerner at 03/07/2023 1:36 PM CDT documented in this encounter Plan of Treatment Upcoming Encounters Date Type Department Care Team (Late st Contact Info) Description 10/31/2025 11:15 AM EST Office Visit [facility] Electrophysiology [address] [place] [address] Adrienne Dunn MD [address] [facility] [address] [place], [place] [phone] documented as of this encounter Visit Diagnoses Not on filedocumented in this encounter Care Teams Agent Contract Clerk Relationship Specialty Start Date End Date Niranjan Mccarty MD [address] [place] [address] PCP - General Adolescent Medicine 10/15/23 documented as of this encounter
--- OUTSIDE RECORDS SUMMARY | 2025-08-30 10:59 | XMS_ITS | Encounter Summary ---
Author Organization [employer] ([place], [place], [place], [place]) Address [address] [place] [address] Care Team Providers Care New Patient Escort Name Role Phone Niranjan Mccarty MD Primary Care Provider [phone] Encounter Details Date Type Department Care Team (Late st Contact Info) Description 06/12/2021 Transcribed Document [facility] [place] Family Medicine [address] [place] [address] ProviderAkash MD [address] [place], [place] [phone] Social History Tobacco Use Types Packs/Day Years [...] Source : Stated Height Entry Format : [place] Height, Feet : 5 ft(Converted to: 152 cm, 60 Inch) Height, Inches : 7 Inch(Converted to: 0 ft 7 Inch, 17.78 cm) Clinical Height : 170.18 cm Weight Source : Standing scale Weight Entry Format : [place] Clinical Dosing Weight : 65.91 kg Weight, Pounds : 145 lb Body Surface Area (BSA) : 1.77 m2 Body Mass Index : 22.8 kg/m2 [place] Body Weight : 61 kg Nory Farfan [...] Nory Farfan RN - 06/12/2021 12:53 EDT [place] Suicide Severity Rating Scale (C-SSRS) CSSRS Past [...] Daughter Legal Guardian : No Support Person/Patient Surgery Scheduling Coordinator : Yes Support Person/Pt Rep Name : daughter- sherley gómez Support Person/Pt Rep Contact Information : gordon [phone] Want Family/Rep/Phys Notified of Admit : No Emergency Contact #1 : NA Emergency Contact #1 Phone Number : NA Emergency Contact #1 Relationship : NA Emergency Contact #2 : NA Emergency Contact #2 Phone Number : NA Emergency Contact #2 Relationship : NA Information Obtained From : Patient Primary Language : [place] Preferred Communication Mode : Verbal Communication Barrier : None Dog Daycare Provider Needed : No Nory Farfan RN - [...] Scale Risk Level : 0-24 Low Risk [place] Fall Interventions : Adequate lighting, Bed in [...] Description 10/31/2025 11:15 AM EST Office Visit [facility] Electrophysiology [address] [place] [address] Adrienne Dunn MD [address] [place] [address] [address] [place] [address] documented as of this encounter Visit Diagnoses Not on filedocumented in this encounter Care Teams New Patient Escort Relationship Specialty Start Date End Date Niranjan Mccarty MD [address] [place] [address] PCP - General Adolescent Medicine 10/15/23 documented as of this encounter
--- OUTSIDE RECORDS SUMMARY | 2025-08-30 10:59 | XMS_ITS | Encounter Summary ---
Author Organization [employer] ([place], [place], [place], [place]) Address [address] [place] [address] Care Team Providers Care Jewish Thought Professor Name Role Phone Niranjan Mccarty MD Primary Care Provider [phone] Encounter Details Date Type Department Care Team (Late st Contact Info) Description 06/13/2021 Transcribed Document [facility] Family Medicine [facility] [place] [address] ProviderAkash MD [address] [place], [place] [phone] Social History Tobacco Use Types Packs/Day Years [...] [facility] Cardiology Discharge Note - EP Primary [place] Boatman: PCP: Niranjan Chavira Consults: NONE History of [...] Normal range of motion. Integumentary: Warm, Dry, [place]. PPM site left SC dressing dry and [...] PCP in 5 - 7 days. Primary [place] Boatman in [address] Dunn in 1 week for wound/device check and OK to resume Coumadin Patient has been instructed on and verbalized an understanding of the above discharge instructions. Plan has been discussed and is in agreement with Dr. Jose Luis Pryor, RN documenting for Dr. Amaya Electronically signed by [facility] Conversion Frog Or Oyster Farmworker Cerner at 03/07/2023 1:27 PM CDT documented in this encounter Plan of Treatment Upcoming Encounters Date Type Department Care Team (Late st Contact Info) Description 10/31/2025 11:15 AM EST Office Visit [facility] Electrophysiology [address] [place] [address] [place] [address] [place] [address] [address] [place], [place] [phone] documented as of this encounter Visit Diagnoses Not on filedocumented in this encounter Care Teams Jewish Thought Professor Relationship Specialty Start Date End Date Niranjan Mccarty MD [address] [place] [address] PCP - General Adolescent Medicine 10/15/23 documented as of this encounter
--- OUTSIDE RECORDS SUMMARY | 2025-08-30 10:59 | XMS_ITS | Encounter Summary ---
Author Organization [employer] ([place], [place], [place], [place]) Address [address] [place] [address] Care Team Providers Care Material Handler 1St Shift Name Role Phone Niranjan Mccarty MD Primary Care Provider [phone] Encounter Details Date Type Department Care Team (Late st Contact Info) Description 08/23/2021 Transcribed Document [facility] [place] [facility] [place] [address] ProviderAkash MD [address] [place], [place] [id number] Social History Tobacco Use Types Packs/Day Years [...] Triage Date/Time : 08/23/2021 13:34 EDT GEORGINA VEERETT RN - 08/23/2021 13:34 EDT DCP GENERIC CODE Tracking Acuity : 2 - Emergent Tracking Group : [facility] ED GEORGINA EVERETT RN - 08/23/2021 13:34 [...] 08/23/2021 13:42:42 EDT) Problems(Active) Anxiety (SNOMED CT :29884046 ) Name of Problem: Anxiety ; Recorder: JOSE TYSON RN; Confirmation: Confirmed ; Classification: Patient Stated ; Code: [id number] ; Contributor System: Fuzmo ; Last Updated: 12/08/2014 8:41 EST ; Life Cycle Date: 12/08/2014 ; Life Cycle Status: Active ; Vocabulary: SNOMED CT Arthritis (SNOMED CT :5828272 ) Name of Problem: Arthritis ; Recorder: Nory Farfan RN; Confirmation: Confirmed ; Classification: Patient Stated ; Code: 2151928 ; Contributor System: Fuzmo ; Last Updated: 06/12/2021 12:48 EDT ; Life Cycle Date: 06/12/2021 ; Life Cycle Status: Active ; Vocabulary: SNOMED CT At risk for sleep apnea (IMO :04177709 ) Name of Problem: At risk for sleep apnea ; Recorder: SYSTEM, SYSTEM; Confirmation: Confirmed ; Classification: Medical ; Code: [id number] ; Last Updated: 10/09/2019 21:47 EST ; Life Cycle Date: 10/09/2019 ; Life Cycle Status: Active ; Vocabulary: IMO Atrial fibrillation (SNOMED CT :23359715 ) Name of Problem: Atrial fibrillation ; Recorder: JOSE TYSON RN; Confirmation: Confirmed ; Classification: Patient Stated ; Code: 13349536 ; Contributor System: Fuzmo ; Last Updated: 12/08/2014 8:42 EST ; Life Cycle Date: 12/08/2014 ; Life Cycle Status: Active ; Vocabulary: SNOMED CT Atrial fibrillation (SNOMED CT :22030528 ) Name of Problem: Atrial fibrillation ; Recorder: DUANE TAVERA APRN; Confirmation: Confirmed ; Classification: Medical ; Code: 25256723 ; Contributor System: PowerChart ; Last Updated: 10/10/2019 11:36 EST ; Life Cycle Status: Active ; Vocabulary: SNOMED CT Chronic CHF (SNOMED CT :918365092 ) Name of Problem: Chronic CHF ; Recorder: JOSE TYSON RN; Confirmation: Confirmed ; Classification: Patient Stated ; Code: 762884162 ; Contributor System: PowerChart ; Last Updated: 12/08/2014 8:43 EST ; Life Cycle Date: 12/08/2014 ; Life Cycle Status: Active ; Vocabulary: SNOMED CT Chronic obstructive pulmonary disease (COPD) (SNOMED CT :79813891 ) Name of Problem: Chronic obstructive pulmonary disease (COPD) ; Recorder: Nory Farfan RN; Confirmation: Confirmed ; Classification: Patient Stated ; Code: 82975327 ; Contributor System: PowerChart ; Last Updated: 06/12/2021 12:49 EDT ; Life Cycle Date: 06/12/2021 ; Life Cycle Status: Active ; Vocabulary: SNOMED CT Chronic respiratory failure (SNOMED CT :10862498 ) Name of Problem: Chronic respiratory failure ; Recorder: JOSE TYSON RN; Confirmation: Confirmed ; Classification: Patient Stated ; Code: 28132978 ; Contributor System: PowerChart ; Last Updated: 12/08/2014 8:42 EST ; Life Cycle Date: 12/08/2014 ; Life Cycle Status: Active ; Vocabulary: SNOMED CT Diverticulosis (SNOMED CT :6140106035 ) Name of Problem: Diverticulosis ; Recorder: Nory Farfan RN; Confirmation: Confirmed ; Classification: Patient Stated ; Code: 2208840048 ; Contributor System: PowerChart ; Last Updated: 06/12/2021 12:48 EDT ; Life Cycle Date: 06/12/2021 ; Life Cycle Status: Active ; Vocabulary: SNOMED CT Fibromyalgia (SNOMED CT :423851540 ) Name of Problem: Fibromyalgia ; Recorder: Nory Farfan RN; Confirmation: Confirmed ; Classification: Patient Stated ; Code: 398371574 ; Contributor System: PowerChart ; Last Updated: 06/12/2021 12:48 EDT ; Life Cycle Date: 06/12/2021 ; Life Cycle Status: Active ; Vocabulary: SNOMED CT H/O hyperlipidemia (SNOMED CT :982308308 ) Name of Problem: H/O hyperlipidemia ; Recorder: JOSE TYSON RN; Confirmation: Confirmed ; Classification: Patient Stated ; Code: 434678883 ; Contributor System: PowerChart ; Last Updated: 12/08/2014 8:43 EST ; Life Cycle Date: 12/08/2014 ; Life Cycle Status: Active ; Vocabulary: SNOMED CT H/O sick sinus syndrome (SNOMED CT :751704603 ) Name of Problem: H/O sick sinus syndrome ; Recorder: JOSE TYSON RN; Confirmation: Confirmed ; Classification: Patient Stated ; Code: 238203123 ; Contributor System: PowerChart ; Last Updated: 12/08/2014 8:43 EST ; Life Cycle Date: 12/08/2014 ; Life Cycle Status: Active ; Vocabulary: SNOMED CT Hyperlipidemia (SNOMED CT :45460403 ) Name of Problem: Hyperlipidemia ; Recorder: AYSE; Confirmation: Confirmed ; Classification: Medical ; Code: 23511426 ; Contributor System: PowerChart ; Last Updated: 10/10/2019 11:36 EST ; Life Cycle Status: Active ; Vocabulary: SNOMED CT Hypertension (SNOMED CT :82349297 ) Name of Problem: Hypertension ; Recorder: CROSBY; Confirmation: Confirmed ; Classification: Medical ; Code: 00014361 ; Contributor System: PowerChart ; Last Updated: 10/10/2019 11:36 EST ; Life Cycle Status: Active ; Vocabulary: SNOMED CT Leg swelling (SNOMED CT :8625722121 ) Name of Problem: Leg swelling ; Recorder: JOSE TYSON RN; Confirmation: Confirmed ; Classification: Patient Stated ; Code: 7292778008 ; Contributor System: PowerChart ; Last Updated: 12/08/2014 8:44 EST ; Life Cycle Date: 12/08/2014 ; Life Cycle Status: Active ; Vocabulary: SNOMED CT Diagnoses(Active) Weakness Date: 08/23/2021 ; Diagnosis Type: Reason For Visit ; Confirmation: Complaint of ; Clinical Dx: Weakness ; Classification: Medical ; Clinical Service: Emergency medicine ; Code: PNED ; Probability: 0 ; Diagnosis Code: [id number] ED Height and Weight Height Source : Stated Height Entry Format : [place] Height, Feet : 5 ft(Converted to: 152 cm, 60 Inch) Height, Inches : 7 Inch(Converted to: 0 ft 7 Inch, 17.78 cm) Clinical Height : 170.18 cm Weight Source, ED : Critical estimated dosing weight Weight Entry Format : [place] Weight, Pounds : 140 lb Clinical Dosing Weight : 63.64 kg Body Surface Area (BSA) : 1.74 m2 Body Mass Index : 22 kg/m2 [place] Body Weight (IBW) : 61.16 kg GEORGINA EVERETT RN - 08/23/2021 13:34 EDT Electronically signed by [facility], [facility] Conversion Nuclear Spectroscopist Cerner at 03/07/2023 1:28 PM CDT documented in this encounter Plan of Treatment Upcoming Encounters Date Type Department Care Team (Late st Contact Info) Description 10/31/2025 11:15 AM EST Office Visit [facility] Electrophysiology [address] [place], [place] [phone] Adrienne [place] MD [address] [place] [address] [address] [place] [address] documented as of this encounter Visit Diagnoses Not on filedocumented in this encounter Care Teams Material Handler 1St Shift Relationship Specialty Start Date End Date Niranjan Mccarty MD [address] [place] [address] PCP - General Adolescent Medicine 10/15/23 documented as of this encounter
--- OUTSIDE RECORDS SUMMARY | 2025-08-30 10:59 | XMS_ITS | Encounter Summary ---
Author Organization [employer] ([place], [place], [place], [place]) Address [address] [place] [address] Care Team Providers Care Shipboard Intelligence Analyst Name Role Phone Niranjan Mccarty MD Primary Care Provider [phone] Encounter Details Date Type Department Care Team (Late st Contact Info) Description 08/23/2021 Transcribed Document [facility] [place] [facility] [place] [address] ProviderAkash MD [address] [place] [id number] Social History Tobacco Use Types Packs/Day Years [...] Description 10/31/2025 11:15 AM EST Office Visit [facility] Electrophysiology [address] [place] [address] Adrienne [place] MD [address] [place] [address] [address] [place] [address] documented as of this encounter Visit Diagnoses Not on filedocumented in this encounter Care Teams Shipboard Intelligence Analyst Relationship Specialty Start Date End Date Niranjan Mccarty MD [address] [place] [address] PCP - General Adolescent Medicine 10/15/23 documented as of this encounter
--- OUTSIDE RECORDS SUMMARY | 2025-08-30 10:59 | XMS_ITS | Encounter Summary ---
Author Organization [employer] ([place], [place], [place], [place]) Address [address] [place] [address] Care Team Providers Care Warehouse Driver Name Role Phone Niranjan Mccarty MD Primary Care Provider [phone] Encounter Details Date Type Department Care Team (Late st Contact Info) Description 10/10/2019 Transcribed Document [facility] [place] [facility] [place] [address] ProviderAkash MD [address] [place] [address] Social History Tobacco Use Types Packs/Day [...] Akash Vega MD - 10/10/2019 9:00 PM EMPLOYEE COMMUNICATIONS MANAGER Pain Assessment Entered On: 10/10/2019 22:55 EST [...] Description 10/31/2025 11:15 AM EST Office Visit [facility] Electrophysiology [address] [place] [address] Adrienne [place] MD [address] [facility] [address] [place] [address] documented as of this encounter Visit Diagnoses Not on filedocumented in this encounter Care Teams Warehouse Driver Relationship Specialty Start Date End Date Niranjan Mccarty MD [address] [place] [address] PCP - General Adolescent Medicine 10/15/23 documented as of this encounter
--- OUTSIDE RECORDS SUMMARY | 2025-08-30 10:59 | XMS_ITS | Encounter Summary ---
Author Organization [employer] ([place], [place], [place], [place]) Address [address] [place] [address] Care Team Providers Care Metrology Manager Name Role Phone Niranjan Mccarty MD Primary Care Provider [phone] Reason for Visit * Reason Onset Date Comments Medication Refill 07/14/2025 Encounter Details Date Type Department Care Team (Late st Contact Info) Description 07/14/2025 Telephone [facility] Cardiology [address] [place] [address] Adrienne [place] MD [address] [facility] [address] [place] [address] Medication Refill Social History Tobacco [...] Date Garrett rded Speak language other than Ugandan at home Not on file 11/28/2023 Want [...] her Digoxin 90 day supply sent to [facility] documented in this encounter Plan of Treatment Upcoming Encounters Date Type Department Care Team (Late st Contact Info) Description 10/31/2025 11:15 AM EST Office Visit [facility] Electrophysiology [address] [place], [place] [phone] [place] [address] [place] [address] [address] [place] [address] documented as of this encounter Visit Diagnoses Not on filedocumented in this encounter Care Teams Metrology Manager Relationship Specialty Start Date End Date Niranjan Mccarty MD [address] [place] [address] PCP - General Adolescent Medicine 10/15/23 documented as of this encounter
--- OUTSIDE RECORDS SUMMARY | 2025-08-30 10:59 | XMS_ITS | Encounter Summary ---
Author Organization [employer] ([place], [place], [place], [place]) Address [address] [place] [address] Care Team Providers Care Retail And Restaurant Name Role Phone Niranjan Mccarty MD Primary Care Provider [phone] Encounter Details Date Type Department Care Team (Late st Contact Info) Description 07/14/2025 Orders Only [facility] Electrophysiology [address] [place] [address] Antwan Mckeon RN Paroxysmal atrial fibrillation [...] Date Garrett rded Speak language other than Ghanaian at home Not on file 11/28/2023 Want [...] Description 10/31/2025 11:15 AM EST Office Visit [facility] Electrophysiology [address] [place] [address] Adrienne [place] MD [address] [facility] [address] [place] [address] documented as of this encounter Visit Diagnoses Diagnosis Paroxysmal atrial fibrillation (HCC) Atrial fibrillation documented in this encounter Care Teams Retail And Restaurant Relationship Specialty Start Date End Date Niranjan Mccarty MD [address] [place] [address] PCP - General Adolescent Medicine 10/15/23 documented as of this encounter
--- OUTSIDE RECORDS SUMMARY | 2025-08-30 10:59 | XMS_ITS | Encounter Summary ---
Author Organization [employer] ([place], [place], [place], [place]) Address [address] [place] [address] Care Team Providers Care Allergy And Immunology Specialist Name Role Phone Niranjan Mccarty MD Primary Care Provider [phone] Encounter Details Date Type Department Care Team (Late st Contact Info) Description 08/23/2021 Transcribed Document [facility] [place] [address] [place] [address] ProviderAkash MD [address] [place], [place] [phone] Social History Tobacco Use Types Packs/Day Years [...] Vega MD - 08/23/2021 1:33 PM CDT [place] Suicide Severity Rating Scale (C-SSRS) Entered On: 08/23/2021 13:46 EDT Performed On: 08/23/2021 13:43 EDT by GEORGINA EVERETT RN [place] Suicide Severity Rating Scale (C-SSRS) CSSRS Past [...] EST Office Visit [facility] Electrophysiology [address] [place] [address] Adrienne [place] MD [address] [facility] [address] [place] [address] documented as of this encounter Visit Diagnoses Not on filedocumented in this encounter Care Teams Allergy And Immunology Specialist Relationship Specialty Start Date End Date Niranjan Mccarty MD [address] [place] [address] PCP - General Adolescent Medicine 10/15/23 documented as of this encounter
--- OUTSIDE RECORDS SUMMARY | 2025-08-30 10:59 | XMS_ITS | Encounter Summary ---
Author Organization [employer] ([place], [place], [place], [place]) Address [address] [place] [address] Care Team Providers Care Hanger Off Name Role Phone Niranjan Mccarty MD Primary Care Provider [phone] Encounter Details Date Type Department Care Team (Late st Contact Info) Description 08/23/2021 Transcribed Document [facility] [place] [address] ProviderAkash MD [address] [place] [address] Social History Tobacco Use Types [...] Vega MD - 08/23/2021 8:36 PM CDT [facility] [place] [id number] ATL PEGUERO :1935 Visit Time:08/23/2021 Your Visit Summary [...] to 3 days Where: [address] [place] [address] Biocept (1) Allergies Advicor Radha Baycol Biaxin Claritin [...] A Day Duration: 10 Day(s) Pickup at [facility] methylPREDNISolone (Medrol Dosepak 4 mg oral tablet) 1 Packet(s) Oral Every Day Duration: 6 Day(s) as directed on package labeling Pickup at [facility] ALPRAZolam (Xanax 0.5 mg oral tablet) [...] Oral Every Day except sundays Pharmacy Information [facility]: [address] [phone] The home medications listed are only as [...] range between ( 0.0 and 7.0 ) [place] #: 0.50 K/uL -- Normal range between ( 0.16 and 1.00 ) Eos #: 0.28 -- Normal range between ( 0.00 and 7.00 ) [place] %: 5.9 % -- Normal range between [...] ) Urine Bilirubin Dipstick: Negative Urine Specific [place]: 1.007 -- Normal range between ( 1.005 [...] these instructions at home: Medicines ??? Take dzrc-cho-dtpgoin and prescription medicines only as told by [...] and water are not available, use hand brand attendant. ??? During flu season, avoid enclosed spaces [...] Reviewed: 12/08/2017 Elsevier Patient Education ?? 2020 [employer] Emergency Awareness and Preventative Care STROKE [...] Assistance with quitting is available by contacting 6-902-KXVF-NOW. This is a free resource providing counseling, support, and referral. Or you may contact your personal physician. [place] Suicide Prevention Lifeline: The National Suicide [...] was given the opportunity to ask questions. Patient/Integrity Manager Name: Patient/Integrity Manager Signature: Relationship to Patient: Clinician/Hospital Integrity Manager Signature: Please Provide a Telephone Number Where You Can Be Reached: Is it Permissible To Leave a Message? Date: documented in this encounter Plan of Treatment Upcoming Encounters Date Type Department Care Team (Late st Contact Info) Description 10/31/2025 11:15 AM EST Office Visit [facility] Electrophysiology [address] [place], [place] [phone] Adrienne [place] MD [address] [place] [address] [address] [place] [id number] documented as of this encounter Visit Diagnoses Not on filedocumented in this encounter Care Teams Hanger Off Relationship Specialty Start Date End Date Niranjan Mccarty MD [address] [place] [address] PCP - General Adolescent Medicine 10/15/23 documented as of this encounter
--- OUTSIDE RECORDS SUMMARY | 2025-08-30 10:59 | XMS_ITS | Encounter Summary ---
Author Organization [employer] ([place], [place], [place], [place]) Address [address] [place] [address] Care Team Providers Care Marketing Mgr Name Role Phone Niranjan Mccarty MD Primary Care Provider [phone] Encounter Details Date Type Department Care Team (Late st Contact Info) Description 10/10/2019 Transcribed Document [facility] [place] [facility] [place] [address] ProviderAkash MD [address] [place], [place] [phone] Social History Tobacco Use Types Packs/Day Years Used Date Smoking Tobacco: Never Assessed Comments Unknown Sex and Gender Information Value Date Recorded Sex Assigned at Not on file Legal Sex Female 1:32 PM CDT Gender Identity Not on file Sexual Orientation Not on file documented as of this encounter Miscellaneous Notes * Cerner Conversion Note - Akash Vega MD - 10/10/2019 11:58 AM 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[employer] Authorization Entered On: 10/10/2019 11:59 EST Performed On: 10/10/2019 11:58 EST by SABRINA MCKEON RN Primary Insurance Authorization Authorization and Policy Numbers : Insurance 1 Health Plan: MEDICARE Policy Number: [id number] Authorization Number: Insurance 2 Health Plan: [facility] Policy Number: [id number] Authorization Number: Insurance Primary Name : MEDICARE Policy Number: [id number] Historical Authorization Comments-Primary : No Authorization Comments Found SABRINA MCKEON RN - 10/10/2019 11:58 EST documented in this encounter Plan of Treatment Upcoming Encounters Date Type Department Care Team (Late st Contact Info) Description 10/31/2025 11:15 AM EST Office Visit [facility] Electrophysiology [address] [place] [address] Adrienne [place] MD [address] [place] [address] [address] [place] [address] documented as of this encounter Visit Diagnoses Not on filedocumented in this encounter Care Teams Marketing Mgr Relationship Specialty Start Date End Date Niranjan Mccarty MD [address] [place] [address] PCP - General Adolescent Medicine 10/15/23 documented as of this encounter
--- OUTSIDE RECORDS SUMMARY | 2025-08-30 10:59 | XMS_ITS | Encounter Summary ---
Author Organization [employer] ([place], [place], [place], [place]) Address [address] [address] Care Team Providers Care Ruby On Rails Consultant Name Role Phone Niranjan Mccarty MD Primary Care Provider [phone] Encounter Details Date Type Department Care Team (Late st Contact Info) Description 06/12/2021 Transcribed Document [facility] [place] [facility] [place] [address] ProviderAkash MD [address] [place], [place] [id number] Social History Tobacco Use Types Packs/Day Years [...] Daughter Legal Guardian : No Support Person/Patient Clinical Neuropsychologist : Yes Support Person/Pt Rep Name : daughter- sherley gómez Contact Password : Fan Support Person/Pt Rep Contact Information : sherley- [phone] Want Family/Rep/Phys Notified of Admit : No Emergency Contact #1 : NA Emergency Contact #1 Phone Number : NA Emergency Contact #1 Relationship : NA Emergency Contact #2 : NA Emergency Contact #2 Phone Number : NA Emergency Contact #2 Relationship : NA Information Obtained From : Patient Primary Language : Austrian Preferred Communication Mode : Verbal Communication Barrier : None Supervisor Computer Operations Needed : Marilyn Ruvalcaba Non Emp Traveler [...] Scale Risk Level : 25-45 Medium Risk [place] Fall Interventions : Adequate lighting, Bed in [...] Source : Stated Height Entry Format : [place] Height, Feet : 5 ft(Converted to: 152 cm, 60 Inch) Height, Inches : 7 Inch(Converted to: 0 ft 7 Inch, 17.78 cm) Clinical Height : 170.18 cm Weight Source : Standing scale Weight Entry Format : [place] Clinical Dosing Weight : 65.91 kg Weight, Pounds : 145 lb Body Surface Area (BSA) : 1.77 m2 Body Mass Index : 22.8 kg/m2 [place] Body Weight : 61 kg Ramandeepmarine Marilyn [...] Reina Emp Traveler - 06/12/2021 23:10 EDT [place] Suicide Severity Rating Scale (C-SSRS) CSSRS Past [...] Visit [facility] Electrophysiology [address] [place] [address] Adrienne [place] MD [address] [facility] [address] [place] [address] documented as of this encounter Visit Diagnoses Not on filedocumented in this encounter Care Teams Ruby On Rails Consultant Relationship Specialty Start Date End Date Niranjan Mccarty MD [address] [facility] [address] [place] [address] PCP - General Adolescent Medicine 10/15/23 documented as of this encounter
--- OUTSIDE RECORDS SUMMARY | 2025-08-30 10:59 | XMS_ITS | Encounter Summary ---
Author Organization [employer] ([place], [place], [place], [place]) Address [address] [place] [address] Care Team Providers Care Aircraft Accessories Mechanic Name Role Phone Niranjan Mccarty MD Primary Care Provider [phone] Encounter Details Date Type Department Care Team (Late st Contact Info) Description 08/23/2021 Transcribed Document [facility] [place] Family Medicine [facility] [place] [address] ProviderAkash MD [address] [place] [address] Social History Tobacco Use Types [...] 6:35 PM CDT Electronically signed by [facility] Conversion Concrete Placement Equipment Operator Cerner at 03/07/2023 1:37 PM CDT documented in this encounter Plan of Treatment Upcoming Encounters Date Type Department Care Team (Late st Contact Info) Description 10/31/2025 11:15 AM EST Office Visit [facility] Electrophysiology [address] [place] [address] Adrienne [place] MD [address] [place] [address] [address] [place] [address] documented as of this encounter Visit Diagnoses Not on filedocumented in this encounter Care Teams Aircraft Accessories Mechanic Relationship Specialty Start Date End Date Niranjan Mccarty MD [address] [place] [address] PCP - General Adolescent Medicine 10/15/23 documented as of this encounter
--- OUTSIDE RECORDS SUMMARY | 2025-08-30 10:59 | XMS_ITS | Encounter Summary ---
Author Organization [employer] ([place], [place], [place], [place]) Address [address] [place] [address] Care Team Providers Care Coordinator Mining Products Name Role Phone Niranjan Mccarty MD Primary Care Provider [phone] Encounter Details Date Type Department Care Team (Late st Contact Info) Description 06/13/2021 Transcribed Document [facility] [place] Medicine [facility] [place] [address] ProviderAkash MD [address] [place] [address] [id number] Social History Tobacco Use Types Packs/Day Years [...] Silvia - 06/13/2021 6:26 AM CDT Patient: TRNA PEGUERO Age: 85 Years Sex: Female : 1935 @ around 0600hr patient complained of pain at the lt shoulder , offered pain medication ordered by doctor as telephone order but patient said she will take them after her breakfast. Electronically signed by Sherri Sam Conversion Shotgun Shell Assembly Machine Operator Cerner at 03/07/2023 1:46 PM CDT documented in this encounter Plan of Treatment Upcoming Encounters Date Type Department Care Team (Late st Contact Info) Description 10/31/2025 11:15 AM EST Office Visit [address] [phone] Adrienne Dunn MD [address] [facility] [address] [place] [phone] documented as of this encounter Visit Diagnoses Not on filedocumented in this encounter Care Teams Coordinator Mining Products Relationship Specialty Start Date End Date Niranjan Mccarty MD [address] [place] [address] PCP - General Adolescent Medicine 10/15/23 documented as of this encounter
--- OUTSIDE RECORDS SUMMARY | 2025-08-30 10:59 | XMS_ITS | Encounter Summary ---
Author Organization [employer] ([place], [place], [place], [place]) Address [address] [place] [address] Care Team Providers Care Shop Supervisor Name Role Phone Niranjan Mccarty MD Primary Care Provider [phone] Encounter Details Date Type Department Care Team (Late st Contact Info) Description 06/13/2021 Transcribed Document [facility] [place] [address] [place] [address] ProviderAkash MD [address] [place], [place] [phone] Social History Tobacco Use Types Packs/Day Years [...] Fats and oils Meat fat, or shortening. [place] butter, hydrogenated oils, palm oil, coconut oil, [...] Reviewed: 12/11/2018 Elsevier Patient Education ? 2020 [employer] Procedures Biventricular Pacemaker Implantation, Care After [...] these instructions at home: Medicines ??? Take dhjx-bvg-ersmyvk and prescription medicines only as told by [...] and water are not available, use hand software design engineer. ? Change your dressing as told by [...] your chest for several days. ??? Take lzgg-phn-yxqfwnm and prescription medicines only as told by [...] Reviewed: 10/04/2019 Elsevier Patient Education ? 2019 [employer] documented in this encounter Plan of Treatment Upcoming Encounters Date Type Department Care Team (Late st Contact Info) Description 10/31/2025 11:15 AM EST Office Visit [facility] Electrophysiology [address] [place] [phone] Adrienne Dunn MD [address] [place] [address] [address] [place] [address] documented as of this encounter Visit Diagnoses Not on filedocumented in this encounter Care Teams Shop Supervisor Relationship Specialty Start Date End Date Niranjan Mccarty MD [address] [place] [address] PCP - General Adolescent Medicine 10/15/23 documented as of this encounter
--- OUTSIDE RECORDS SUMMARY | 2025-08-30 10:59 | XMS_ITS | Encounter Summary ---
Author Organization [employer] ([place], [place], [place], [place]) Address [address] [place] [address] Care Team Providers Care Search Engine Optimization Analyst Name Role Phone Niranjan Mccarty MD Primary Care Provider [phone] Encounter Details Date Type Department Care Team (Late st Contact Info) Description 08/23/2021 Transcribed Document [facility] [place] [address] [place] [address] ProviderAkash MD [address] [place], [place] [phone] Social History Tobacco Use Types Packs/Day Years [...] Communication Barrier : None Primary Language : Iranian Any Spiritual/Cultural Needs or Requests : No [...] Visit [facility] Electrophysiology [address] [place] [phone] Adrienne Dunn MD [address] [place] [address] [address] [place] [address] documented as of this encounter Visit Diagnoses Not on filedocumented in this encounter Care Teams Search Engine Optimization Analyst Relationship Specialty Start Date End Date Niranjan Mccarty MD [address] [place] [address] PCP - General Adolescent Medicine 10/15/23 documented as of this encounter
--- OUTSIDE RECORDS SUMMARY | 2025-08-30 10:59 | XMS_ITS | Encounter Summary ---
Author Organization [employer] [place] ([place], [place], [place], [place]) Address [address] [place] [address] Care Team Providers Care Supervisor Heat Treating Name Role Phone Niranjan Mccraty MD Primary Care Provider [phone] Encounter Details Date Type Department Care Team (Late Contact Info) Description 08/24/2021 Transcribed Document [facility] Family Medicine [address] [place] [address] ProviderAkash MD [address] [place] [address] Social History Tobacco Use Types [...] required Electronically signed by Sherri Sam Conversion Environmental Remediation Specialist Cerner at 03/07/2023 1:23 PM CDT documented in this encounter Plan of Treatment Upcoming Encounters Date Type Department Care Team (Late st Contact Info) Description 10/31/2025 11:15 AM EST Office Visit [address] [phone] Adrienne Dunn MD [address] [facility] [address] [place] [address] documented as of this encounter Visit Diagnoses Not on filedocumented in this encounter Care Teams Supervisor Heat Treating Relationship Specialty Start Date End Date Niranjan Mccarty MD [address] [place] [address] PCP - General Adolescent Medicine 10/15/23 documented as of this encounter
[2025-08-30 11:27] LABS: PHA INR Fingerstick 1.9 (0.9-1.1)
== END 2025-08-30 13:27 ==
LOC: ACC 10:56
PROVIDERS: PCP Internal Medicine Adolescent Medicine; Visit Provider Internal Medicine Adolescent Medicine
DX: Z79.01 Long term (current) use of anticoagulants (principal)
CPT/HCPCS: 85610; 99211; G0463

== ENCOUNTER 2025-10-26 11:52 | Outpatient (CLI) | payer MEDICARE, OTHER, SELFPAY ==
[2025-10-26 14:37] LABS: PHA INR Fingerstick 2.5 (0.9-1.1)
== END 2025-10-26 14:50 ==
LOC: ACC 11:53
PROVIDERS: PCP Internal Medicine Adolescent Medicine; Visit Provider Internal Medicine Adolescent Medicine
DX: Z79.01 Long term (current) use of anticoagulants (principal)
CPT/HCPCS: 85610; 99211; G0463